=== PATIENT | female | born 1960 | race Caucasian/White ===

== ENCOUNTER 2022-01-21 15:48 | Emergency (ER) | payer OTHER ==
--- OUTSIDE RECORDS SUMMARY | 2022-01-21 16:31 | XMS REPORT | Continuity of Care Document ---
:1960 Author Organization [facility] t Address [address] [place] [address] [address] [place] [address] Care Team Providers Name Role Phone Ant Oliva PA-C Primary Care Physician Blanca Andres LMSW Attending Clinician Unavailable Marielena Ramsay MD Attending Clinician Margaret Cowan RN Attending Clinician Unavailable Manuel Martinez MD Attending Clinician Margaret Guillermo MA Attending Clinician Unavailable Irma Carr RN Attending Clinician Unavailable Provider, Unknown Attending Clinician Unavailable Jossue [facility], Zara Attending Clinician Unavailable Makayla Cuevas RN Attending Clinician Unavailable Stephani Marinelli RN Attending Clinician [facility]available [facility], Cecil Attending Clinician Unavailable Cecilio Godoy RN Attending Clinician Unavailable Ventura Navarrete MD Attending Clinician Frances Kong MD Attending Clinician MD VENTURA NAVARRETE Attending Clinician Unavailable Omega COOL, Shea Clifton Attending Clinician Artem Urrutia RN Attending Clinician Unavailable Donta Almendarez MD Attending Clinician Colleen Mcelroy RN Attending Clinician Unavailable Manuel Cisneros MD Attending Clinician [phone] Estella Sousa Attending Clinician Unavailable Evgeny Vásquez RN Attending Clinician Unavailable Yanni Godfrey LCSW Attending Clinician Unavailable Sri RPDeanna Attending Clinician Unavailable Ezra Banks RP, Ember Attending Clinician Unavailable Ivonne Saleh MA Attending Clinician Unavailable Conner RN, Petty Richards Attending Clinician Unavailable Adalid COOL, Donta Cassidy.H. Attending Clinician Hugh Damon MD Attending Clinician Lata Chowdary Attending Clinician Unavailable MD DONTA CORDOBA Attending Clinician Unavailable Yelitza Sims MA Attending Clinician Unavailable FRANCES KONG Admitting Clinician Unavailable MD VENTURA NAVARRETE Admitting Clinician Unavailable DONTA CORDOAB Admitting Clinician Unavailable MD DONTA CORDOBA Admitting Clinician Unavailable Payers Payer Name Policy Type Policy Number Effective Date Expiration Date S ource Problems Condition Condition Condition Status Onset Resolution Last Treating Co mments Source Name Details Category Date Date Treatment Clinician Date Thrombocyt Thrombocyt Disease Active 2020-05 M [facility] open[facility] 00:00: Hospita 00 l COPD COPD Disease Active 2020-05 [facility] exacerbati exacerbati 1-16 st on on 00:00: Hospita 00 l H/O H/O Disease Active 2020-05 Method[facility] malignant malignant 1-15 st neoplasm neoplasm 00:00: Hospit a of lung of lung 00 l 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 Family History Family Member Diagnosis Comments Start Date Stop Date Source Natural father History of cancer [facility] Natural father Lung cancer [facility] Natural mother COPD [facility] Natural mother Diabetes [facility] Natural mother Lung cancer [facility] Social History Social Habit Start Date Stop Date Quantity Comments Source Cigarettes smoked 2022-01-16 2022-01-16 Methodi current (pack per 00:00:00 00:00:00 Hospita l day) - Reported Cigarette 2022-01-16 2022-01-16 Islam pack-years 00:00:00 00:00:00 Hospital Tobacco use and 2022-01-16 2022-01-16 Smokeless tobacco [facility] exposure 00:00:00 00:00:00 non-user Hospital Alcohol intake 2022-01-16 2022-01-16 Ex-drinker Islam 00:00:00 00:00:00 (finding) Hospital History of tobacco 2014-07-08 Current smoker [facility] use 00:00:00 Hospital Sex Ass[birth year] At [birth year] F Islam 00:00:00 00:00:00 Hospital Smoking Status Start Date Stop Date Source Ex-smoker 2022-01-16 00:00:00 2022-01-16 00:00:00 [facility] Medications Ordered Filled Start Stop Current Ordering Indication Dosage Frequency Signature Comments Components Source Medication Medication Date Date Medication? Clinician (SIG) Name Name benztropine Yes 1mg Q.5D Take 1 mg M ethodi (COGENTIN) 01-[address] 1 MG tablet 14:48: (two) Hospi ta 39 times a l day. Patient is unsure whether she is taking this medication (verbally stated). QUEtiapine Yes 300mg Q.5D Take 300 Me thodi (SEROquel) 9-[address] 300 MG 14:48: mouth 2 Hospita tablet 39 (two) l times a day. 600mg nightly, 300mg daily risperiDONE Yes 3mg Q.5D Take 3 mg M ethodi (RisperDAL) 01-[address] 3 MG tablet 14:48: (two) Hospi ta 39 times a l day. multivitami 2022-0 Yes 1{tbl} QD Take 1 Me thodi n tablet 9-[address] 14:48: mouth Hospita 39 daily. l BIOTIN ORAL Yes 1{tbl} QD Take 1 Me thodi 9-[address] 14:48: mouth Hospita 39 daily. l fluticasone Yes INHALE ONE Methodi furoate-radha 3-15 (1) PUFF st anteroL 00:00: BY MOUTH Hospit a (Breo 00 DAILY. l Ellipta) 100-25 mcg/dose blister with device powder for inhalation levothyroxi No 50ug QD Take 1 Met hodi ne 06-0122 tablet (50 st (Synthroid) 00:00: 05:59 mcg total) Hospita 50 mcg 00 :00 by mouth l tablet daily. potassium No [id number] 20meq Me th[facility] chloride 18 -18 st (K-DUR) CR 16:15: 16:51 Hospit a tablet 20 00 :00 l mEq benadryl/li 2020-05 No 5mL Q6H Swish and Methodi docaine/maa 05-[address] [facility] (MAGIC 00:00: 05:59 every 6 Hos julian MOUTHWASH) 00 :00 (six) l 1:1:1 hours for suspension 30 days. suspension fluconazole 2020-05 No 100mg QD Take 1 Me thodi (Diflucan) 16 04-[address] 100 MG 00:00: 05:59 (100 mg Hospita tablet 00 :00 total) by l mouth daily for 14 days. predniSONE 2020-05- No Take 4 Meth matty (DELTASONE) 16 11-[address] 10 mg 00:00: 05:59 (40 mg Hospita tablet pack 00 :00 total) by l mouth daily for 5 days, THEN 2 tablets (20 mg total) daily for 5 days. follow package directions . ondansetron 2020-05 Yes 8mg Q8H Take 1 Meth matty (Zofran) 8 1-11 tablet (8 st MG tablet 00:00: mg total) Hos julian 00 by mouth l every 8 (eight) hours as needed for nausea or vomiting. benadryl/li 2020-05 No 5mL Q6H Swish and Methodi docaine/maa 05-22 11-[address] l[facility] (MAGIC 00:00: 00:00 every 6 Hos julian MOUTHWASH) 00 :00 (six) l 1:1:1 hours for suspension 30 days. suspension nystatin 2020-05 No [id number] Q.25D Take 5 mL Methodi (MYCOSTATIN 05-2118 (500,000 st ) 100,000 00:00: 05:59 Units Hospit a unit/mL 00 :00 total) by l suspension mouth 4 (four) times a day for 7 days. Swish in mouth fluticasone 2020-05 QD Inhale Met hodi -umeclidin- 05-19 11-[address] vilanter 10:12: 00:00 Hospita (TRELEGY 53 :00 l ELLIPTA) 100-62.5-25 mcg blister with device fluticasone 2020-05 INHALE ONE Methodi furoate-radha 05-19 03-15 (1) PUFF st anteroL 00:00: 00:00 BY MOUTH Hospi ta (Breo 00 :00 DAILY. l Ellipta) 100-25 mcg/dose blister with device powder for inhalation benadryl/li 2020-05 No 5mL Q6H Swish and Methodi docaine/maa 05-[address] [facility] (MAGIC 00:00: 00:00 every 6 Hos julian MOUTHWASH) 00 :00 (six) l 1:1:1 hours for suspension 30 days. suspension ondansetron 2020-05 No 8mg Q8H Take 1 Met hodi (Zofran) 8 0-01 11 tablet (8 st MG tablet 00:00: 00:00 mg total) Ho spita 00 :00 by mouth l every 8 (eight) hours as needed for nausea or vomiting. mirtazapine 2019-05 Yes 30mg QD Take 30 mg Methodi (REMERON) 0-[address] 30 MG 00:00: nightly. Hospita tablet 00 l PARoxetine 2019-05 Yes QD Take by Meth matty (PAXIL) 30 0-[address] MG tablet 00:00: daily. Hospit a 00 l Breo 2019-05- No INHALE ONE Method i Ellipta 0-01 03-19 (1) PUFF st 100-25 00:00: 00:00 BY MOUTH Hospit a mcg/dose 00 :00 DAILY. l blister with device powder for inhalation divalproex 2006-05 Yes Take by Meth matty (DEPAKOTE) 1-[address] 500 MG 24 00:00: Hospita hr tablet 00 l Vital Signs Vital Name Observation Time Observation Value Comments Source Systolic blood 2022-01-16 19:44:00 124 mm[Hg] [facility] pressure Diastolic blood 2022-01-16 19:44:00 80 mm[Hg] [facility] pressure Heart rate 2022-01-16 19:44:00 86 /min [facility] Body temperature 2022-01-16 19:44:00 36.83 Shira [facility] Respiratory rate 2022-01-16 19:44:00 20 /min [facility] Body height 2022-01-16 19:44:00 152.4 cm [facility] Body weight 2022-01-16 19:44:00 84.55 kg [facility] BMI 2022-01-16 19:44:00 36.40 kg/m2 [facility] Oxygen saturation in 2022-01-16 19:44:00 97 /min [facility] Arterial blood by Pulse oximetry Procedures Procedure Date / Time Performing Clinician Source Performed PET CT SKULL BASE TO MID 2022-01-08 14:36:07 Manuel Martinez [facility] THIGH HC COMPLETE BLD COUNT 2022-01-08 14:36:00 Manuel Martinez [facility] W/AUTO DIFF COMPREHENSIVE METABOLIC 2022-01-08 14:36:00 Manuel Martinez [facility] PANEL MAGNESIUM LEVEL 2022-01-08 14:36:00 Manuel Martinez Ho spital THYROID STIMULATING 2022-01-08 14:36:00 Manuel Martinez [facility] HORMONE T3, FREE 2022-01-08 14:36:00 Manuel Martinez spital T4, FREE 2022-01-08 14:36:00 Manuel Martinez spital ESTIMATED GFR 2022-01-08 14:36:00 Manuel Martinez Ho spital T3 2022-01-08 14:36:00 Manuel Martinez Ho spital ESTIMATED GFR 2022-01-08 14:20:00 Manuel Martinez Ho spital POC GLUCOSE 2022-01-08 12:53:00 Manuel Martinez Ho spital HC COMPLETE BLD COUNT 2021-12-11 14:36:00 Manuel Martinez [facility] W/AUTO DIFF COMPREHENSIVE METABOLIC 2021-12-11 14:36:00 Manuel Martinez [facility] PANEL MAGNESIUM LEVEL 2021-12-11 14:36:00 Manuel Martinez Ho spital THYROID STIMULATING 2021-12-11 14:36:00 Manuel Martinez [facility] HORMONE T3 2021-12-11 14:36:00 Manuel Martinez Ho spital T4, FREE 2021-12-11 14:36:00 Manuel Martinez Ho spital ESTIMATED GFR 2021-12-11 14:36:00 Manuel Martinez Ho spital CT CHEST W CONTRAST 2021-11-13 18:58:59 Manuel Martinez [facility] CBC WITH PLATELET AND 2021-11-13 16:36:00 Manuel Martinez [facility] DIFFERENTIAL COMPREHENSIVE METABOLIC 2021-11-13 16:36:00 Manuel Martinez [facility] PANEL MAGNESIUM LEVEL 2021-11-13 16:36:00 Manuel Martinez Ho spital THYROID STIMULATING 2021-11-13 16:36:00 Manuel Martinez [facility] HORMONE T3 2021-11-13 16:36:00 Manuel Martinez Ho spital T4, FREE 2021-11-13 16:36:00 Manuel Martinez Ho spital ESTIMATED GFR 2021-11-13 16:36:00 Manuel Martinez Ho spital MANUAL DIFFERENTIAL 2021-11-13 16:36:00 Manuel Martinez [facility] CBC WITH PLATELET AND 2021-10-16 14:26:00 Manuel Martinez [facility] DIFFERENTIAL COMPREHENSIVE METABOLIC 2021-10-16 14:26:00 Manuel Martinez [facility] PANEL MAGNESIUM LEVEL 2021-10-16 14:26:00 Manuel Martinezist Ho spital THYROID STIMULATING 2021-10-16 14:26:00 Martinez, Manuel [facility] HORMONE T3 2021-10-16 14:26:00 Manuel Martinez Ho spital T4, FREE 2021-10-16 14:26:00 Manuel Martinezist Ho spital ESTIMATED GFR 2021-10-16 14:26:00 Manuel Martinezist Ho spital MANUAL DIFFERENTIAL 2021-10-16 14:26:00 [facility] CBC WITH PLATELET AND 2021-09-18 14:10:00 Manuel Martinez [facility] DIFFERENTIAL COMPREHENSIVE METABOLIC 2021-09-18 14:10:00 Manuel Martinez [facility] PANEL MAGNESIUM LEVEL 2021-09-18 14:10:00 Manuel Martinez Ho spital THYROID STIMULATING 2021-09-18 14:10:00 [place] HORMONE T3 2021-09-18 14:10:00 Manuel Martinezist Ho spital T4, FREE 2021-09-18 14:10:00 Manuel Martinez Ho spital ESTIMATED GFR 2021-09-18 14:10:00 Manuel Martinez Ho spital MANUAL DIFFERENTIAL 2021-09-18 14:10:00 Manuel Martinez [facility] HC COMPLETE BLD COUNT 2021-08-21 14:01:00 Manuel Martinez [facility] W/AUTO DIFF COMPREHENSIVE METABOLIC 2021-08-21 14:01:00 Manuel Martinez [facility] PANEL MAGNESIUM LEVEL 2021-08-21 14:01:00 Manuel Martinez Ho spital THYROID STIMULATING 2021-08-21 14:01:00 Manuel Martinez [facility] HORMONE T3 2021-08-21 14:01:00 Manuel Martinezist Ho spital T4, FREE 2021-08-21 14:01:00 Manuel Martinez Ho spital ESTIMATED GFR 2021-08-21 14:01:00 Manuel Martinez Ho spital MRI BRAIN W WO CONTRAST 2021-08-17 17:05:13 Manuel Martinez [facility] PET CT SKULL BASE TO MID 2021-08-17 16:18:00 Manuel Martinez [facility] THIGH POC GLUCOSE 2021-08-17 14:39:00 Manuel Martinez [facility] spital HC COMPLETE BLD COUNT 2021-07-24 15:06:00 Manuel Martinez [facility] W/AUTO DIFF COMPREHENSIVE METABOLIC 2021-07-24 15:06:00 Manuel Martinez [facility] PANEL MAGNESIUM LEVEL 2021-07-24 15:06:00 Manuel Martinez Ho spital THYROID STIMULATING 2021-07-24 15:06:00 Manuel Martinez [facility] HORMONE T3 2021-07-24 15:06:00 Manuel Martinez Ho spital T4, FREE 2021-07-24 15:06:00 Manuel Martinez Ho spital ESTIMATED GFR 2021-07-24 15:06:00 Manuel Martinez [facility] sp[facility] HC COMPLETE BLD COUNT 2021-06-26 15:57:00 Manuel Martinez [facility] W/AUTO DIFF COMPREHENSIVE METABOLIC 2021-06-26 15:57:00 Manuel Martinez [facility] PANEL MAGNESIUM LEVEL 2021-06-26 15:57:00 Manuel Martinez Ho spital THYROID STIMULATING 2021-06-26 15:57:00 Manuel Martinez [facility] HORMONE T3 2021-06-26 15:57:00 Manuel Martinez Ho spital T4, FREE 2021-06-26 15:57:00 Manuel Martinez Ho spital ESTIMATED GFR 2021-06-26 15:57:00 Manuel Martinez [facility] spital CBC WITH PLATELET AND 2021-05-29 13:57:00 Manuel Martinez [facility] DIFFERENTIAL COMPREHENSIVE METABOLIC 2021-05-29 13:57:00 Manuel Martinez [facility] PANEL MAGNESIUM LEVEL 2021-05-29 13:57:00 Manuel Martinez Ho spital THYROID STIMULATING 2021-05-29 13:57:00 Manuel Martinez [facility] HORMONE T3 2021-05-29 13:57:00 Manuel Martinez [facility] spital T4, FREE 2021-05-29 13:57:00 Manuel Martinez [facility] spital ESTIMATED GFR 2021-05-29 13:57:00 Manuel Martinez [facility] spital MANUAL DIFFERENTIAL 2021-05-29 13:57:00 Manuel Martinez [facility] CT CHEST W CONTRAST 2021-05-22 17:14:16 Manuel Martinez [facility] RAD ONC COURSE SUMMARY 2021-04-27 19:56:56 Provider, Unknown [facility] HC COMPLETE BLD COUNT 2021-04-24 14:32:00 Manuel Martinez [facility] W/AUTO DIFF COMPREHENSIVE METABOLIC 2021-04-24 14:32:00 [facility] PANEL MAGNESIUM LEVEL 2021-04-24 14:32:00 Manuel Martinezist Ho spital ESTIMATED GFR 2021-04-24 14:32:00 Manuel Martinez [facility] spital RAD ONC DAILY TREATMENT 2021-04-24 13:24:35 Provider, Unknown [facility] RAD ONC DAILY TREATMENT 2021-04-23 16:45:25 Provider, Unknown [facility] RAD ONC DAILY TREATMENT 2021-04-20 16:45:46 Provider, Unknown [facility] RAD ONC DAILY TREATMENT 2021-04-19 17:14:34 Provider, Unknown [facility] RAD ONC DAILY TREATMENT 2021-04-18 17:29:35 Provider, Unknown [facility] HC COMPLETE BLD COUNT 2021-04-17 14:02:00 Manuel Martinez [facility]/AUTO DIFF COMPREHENSIVE METABOLIC 2021-04-17 14:02:00 Manuel Martinez [facility] PANEL ESTIMATED GFR 2021-04-17 14:02:00 [facility] 2021-04-17 14:02:00 Manuel Martinezist Ho spital RAD ONC DAILY TREATMENT 2021-04-17 13:11:43 Provider, Unknown [facility] RAD ONC DAILY TREATMENT 2021-04-16 16:51:36 Provider, Unknown [facility] RAD ONC DAILY TREATMENT 2021-04-13 17:37:41 Provider, Unknown [facility] RAD ONC DAILY TREATMENT 2021-04-12 17:27:38 Provider, Unknown [facility] RAD ONC DAILY TREATMENT 2021-04-11 17:41:13 Provider, Unknown [facility] HC COMPLETE BLD COUNT 2021-04-10 17:09:00 Manuel Martinez [facility] W/AUTO DIFF COMPREHENSIVE METABOLIC 2021-04-10 17:09:00 Manuel Martinez [facility] PANEL MAGNESIUM LEVEL 2021-04-10 17:09:00 Manuel Martinez Ho spital ESTIMATED GFR 2021-04-10 17:09:00 Manuel Martinezist Ho spital RAD ONC DAILY TREATMENT 2021-04-10 16:18:41 Provider, Unknown [facility] RAD ONC DAILY TREATMENT 2021-04-09 17:12:42 Provider, Unknown [facility] RAD ONC DAILY TREATMENT 2021-04-04 16:46:28 Provider, Unknown [facility] RAD ONC DAILY TREATMENT 2021-04-03 16:52:47 Provider, Unknown [facility] CBC WITH PLATELET AND 2021-04-02 14:42:00 Manuel Martinez [facility] DIFFERENTIAL COMPREHENSIVE METABOLIC 2021-04-02 14:42:00 Manuel Martinez [facility] PANEL MAGNESIUM LEVEL 2021-04-02 14:42:00 [facility] 2021-04-02 14:42:00 [facility] MANUAL DIFFERENTIAL 2021-04-02 14:42:00 Manuel Martinez [facility] RAD ONC DAILY TREATMENT 2021-04-02 13:51:59 Provider, Unknown [facility] RAD ONC DAILY TREATMENT 2021-03-30 16:51:51 Provider, Unknown [facility] RAD ONC DAILY TREATMENT 2021-03-29 17:12:14 Provider, Unknown [facility] RAD ONC DAILY TREATMENT 2021-03-28 16:14:16 Provider, Unknown [facility] RAD ONC DAILY TREATMENT 2021-03-27 21:51:17 Provider, Unknown [facility] COVID-19 ANTI-SPIKE IGG 2021-03-27 10:00:[facility]-19 SEROLOGY PATIENT 2021-03-27 10:00:00 Navarrete, [facility] SURVEILLANCE HC COMPLETE BLD COUNT 2021-03-27 09:31:00 [facility] DIFF BASIC METABOLIC PANEL 2021-03-27 09:31:00 [facility] MAGNESIUM LEVEL 2021-03-27 09:31:00 Lexi [facility] ospital PHOSPHORUS LEVEL 2021-03-27 09:31:00 [facility] 2021-03-27 09:31[facility]00 [facility] ACID LEV[facility] 2021-03-27 09:31:00 Lexi [facility] ospital LDH 2021-03-27 09:31:00 Lexi [facility] ospital ESTIMATED GFR 2021-03-27 09:31:00 Lexi [facility] ospital CT CHEST WO CONTRAST 2021-03-27 03:19:25 Navarrete, [facility] COVID-19 QUALITATIVE 2021-03-27 02:00:00 Manuel Martinez [facility] RT-PCR ECG 12-LEAD 2021-03-27 01:39:50 Lexi [facility] ospital CBC WITH PLATELET AND 2021-03-26 16:01:00 Manuel Martinez [facility] DIFFERENTIAL COMPREHENSIVE METABOLIC 2021-03-26 16:01:00 Manuel Martinez [facility] PANEL MAGNESIUM LEVEL 2021-03-26 16:01:00 Manuel Martinez Ho spital ESTIMATED GFR 2021-03-26 16:01:00 Manuel Martinez spital MANUAL DIFFERENTIAL 2021-03-26 16:01:00 Manuel Martinez [facility] RAD ONC DAILY TREATMENT 2021-03-26 14:12:43 Provider, Unknown [facility] HC COMPLETE BLD COUNT 2021-03-19 14:23:00 Manuel Martinez [facility] W/AUTO DIFF COMPREHENSIVE METABOLIC 2021-03-19 14:23:00 Manuel Martinez [facility] PANEL MAGNESIUM LEVEL 2021-03-19 14:23:00 Manuel Martinezist Ho spital ESTIMATED GFR 2021-03-19 14:23:00 Manuel Martniez Ho spital HC COMPLETE BLD COUNT 2021-03-12 16:45:00 Manuel Martinez [facility] W/AUTO DIFF COMPREHENSIVE METABOLIC 2021-03-12 16:45[facility]ESI[facility] LEVEL 2021-03-12 16:45:00 Manuel Martinez Ho spital ESTIMATED GFR 2021-03-12 16:45:00 Manuel Martinezist Ho spital HC COMPLETE BLD COUNT 2021-03-05 13:00:00 Manuel Martinez [facility] W/AUTO DIFF COMPREHENSIVE METABOLIC 2021-03-05 13:00:00 Manuel Martinez [facility] PANEL MAGNESIUM LEVEL 2021-03-05 13:00:00 [facility] GFR 2021-03-05 13:00:00 [facility] BRAIN W WO CONTRAST 2021-02-22 13:35:00 Manuel Martinez [facility] CT CHEST W CONTRAST 2021-02-07 16:11:00 Manuel Martinez [facility] ABDOMEN W CONTRAST PELVIS W CONTRAST XR CHEST 1 VW PORTABLE 2021-01-29 20:03:00 Marta Salas [facility] CYTOLOGY 2021-01-29 19:18:00 Donta Cordoba [facility] (NON-GYNECOLOGICAL) REQUEST CYTOLOGY 2021-01-29 19:01:00 Donta Cordoba [facility] (NON-GYNECOLOGICAL) REQUEST ND AN ELECTIVE 2021-01-29 18:34:31 Hugh Damon [facility] ospital ENDOTRACHEAL AIRWAY BRONCHOSCOPY 2021-01-29 18:05:00 Donta Cordoba [facility] [place], ENDOBRONCHIAL 2021-01-29 18:05:00 Donta Cordoba [facility] ABO AND RH CONFIRMATION 2021-01-29 15:18:00 Donta Cordoba [facility] BY PROTOCOL COVID-19 QUALITATIVE 2021-01-25 16:57:00 Donta Cordoba [facility] RT-PCR TYPE AND SCREEN 2021-01-25 16:57:00 Donta Cordoba [facility] PROTHROMBIN TIME WITH INR 2021-01-25 16:57:00 Donta Cordoba [facility] PARTIAL THROMBOPLASTIN 2021-01-25 16:57:00 Donta Cordoba [facility] TIME (PTT) COMPREHENSIVE METABOLIC 2021-01-25 16:57:00 Donta Cordoba [facility] PANEL HC COMPLETE BLD COUNT 2021-01-25 16:57:00 Donta Cordoba [facility] W/AUTO DIFF ESTIMATED GFR 2021-01-25 16:57:00 Donta Cordoba [facility] ECG 12-LEAD 2021-01-25 16:45:56 Donta CordobaMichael [facility] Plan of Care Planned Activity Planned Date Details Comments Source Future Scheduled 2022-01-21 HEPATITIS B VACCINES [facility] Test 11:09:47 (1 of 3 - 3-dose series) [code = HEPATITIS B VACCINES (1 of 3 - 3-dose series)] Future Scheduled 2022-01-21 Pneumococcal Vaccine: [facility] Test 11:09:47 Pediatrics (0 to 5 Years) and At-Risk Patients (6 to 64 Years) (1 - PCV) [code = Pneumococcal Vaccine: Pediatrics (0 to 5 Years) and At-Risk Patients (6 to 64 Years) (1 - PCV)] Future Scheduled 2022-01-21 SHINGLES VACCINES (1 [facility] Test 11:09:47 of 2) [code = SHINGLES VACCINES (1 of 2)] Future Scheduled 2022-01-21 Screening for [facility] Test 11:09:47 malignant neoplasm of cervix (procedure) [code = [id number]] Future Scheduled 2022-01-21 BREAST CANCER [facility] Test 11:09:47 SCREENING [code = BREAST CANCER SCREENING] Future Scheduled 2022-01-21 COLONOSCOPY SCREENING [facility] Test 11:09:47 [code = COLONOSCOPY SCREENING] Future Scheduled 2022-01-21 COVID-19 VACCINE (3 - [facility] Test 11:09:47 Pfizer risk series) [code = COVID-19 VACCINE (3 - Pfizer risk series)] Future Scheduled 2022-01-21 INFLUENZA VACCINE Method [facility] Test 11:09:47 [code = INFLUENZA VACCINE] Encounters Start End Encounter Admission Attending Care Care Encounter Source Date/Time Date/Time Type Type Clinicians Facility Department ID 2022-01-21 2022-01-21 Social Mckenna, 1.2.840.1 [id number] Methodi 00:00:00 00:00:00 Work Blanca 53970.1.[address] 3.430.2.7 Hospit a .3.705734 l .8 2022-01-17 2022-01-17 Social Mckenna, 1.2.840.1 [id number] 68475 48059 Methodi 00:00:00 00:00:00 Work Blanca 40662.1.[address] 3.430.2.7 Hospit a .3.076255 l .8 2022-01-16 2022-01-16 [facility], 1.2.840.1 [id number] 43381 Methodi 16:15:00 16:15:00 Encounter Marielena Tirado 87880.1.[address] 3.430.2.7 Hospit a .3.585623 l .8 2022-01-16 2022-01-16 [facility] Marielena RamMichael 1.2.840.1 [id number] Methodi 14:32:32 14:32:32 Encounter Margaret Cowan 46246.1.[address] 3.430.2.7 Hospit a .3.649339 l .8 2022-01-08 2022-01-16 Office Manuel Martinez 1.2.840.1 [id number] 703 [id number] Methodi 10:20:00 00:36:[address] 3.430.2.7 Hospit a .3.395288 l .8 2022-01-16 2022-01-16 Outpatient [facility] [id number] 380 [place] 00:00:00 00:00:00 MARIELENA [address] 2022-01-16 2022-01-16 Outpatient [facility] [id number] [place] 00:00:00 00:00:00 MARIELENA [address] 2022-01-16 2022-01-16 Travel 1.2.840.1 1.2.198.846 4062 088383 Methodi 00:00:00 00:00:[address] 3.430.2.7 0.2.7.3.698 spita .3.793914 084.8 l .8 2022-01-15 2022-01-15 [facility] 1.2.840.1 [id number] 2100 [id number] Methodi 00:00:00 00:00:[address] 3.430.2.7 Hospit a .3.564554 l .8 2022-01-10 2022-01-10 [facility] 1.2.840.1 [id number] 07122 04004 Methodi 07:00:00 07:00:00 Encounter Marielena iTrado 75568.1.[address] 3.430.2.7 Hospit a .3.271451 l .8 2022-01-10 2022-01-10 Outpatient [facility] [id number] 380 [place] 00:00:00 00:00:00 MARIELENA [address] 2022-01-08 2022-01-08 [facility] Manuel Martinez 1.2.840.1 [id number] 21 [id number] Methodi 07:18:36 23:59:[address] 3.430.2.7 Hospit a .3.688299 l .8 2022-01-08 2022-01-08 Infusion Manuel Martinez 1.2.840.1 [id number] Methodi 09:15:00 12:15:[address] 3.430.2.7 Hospit a .3.382733 l .8 2022-01-08 2022-01-08 Orders Manuel Martinez 1.2.840.1 [id number] 763 [id number] Methodi 00:00:00 00:00:[address] 3.430.2.7 Hospit a .3.815226 l .8 2022-01-08 2022-01-08 Travel 1.2.840.1 1.2.950.202 2678 038703 Methodi 00:00:00 00:00:[address] 3.430.2.7 0.2.7.3.698 Ho spita .3.239546 084.8 l .8 2022-01-08 2022-01-08 Outpatient MANUEL MARTINEZ [facility] 2100 [id number] [place] 00:00:00 00:00:[address] 2022-01-08 2022-01-08 Outpatient MANUEL MARTINEZ [facility] 2100 [id number] [place] 00:00:00 00:00:[address] 2022-01-08 2022-01-08 Outpatient MANUEL MARTINEZ [facility] 2100 [id number] [place] 00:00:00 00:00:[address] 2022-01-04 2022-01-04 Travel 1.2.840.1 1.2.873.384 9062 554595 Methodi 00:00:00 00:00:[address] 3.430.2.7 0.2.7.3.698 Ho spita .3.854195 084.8 l .8 2021-12-21 2021-12-21 Orders [facility], 1.2.840.1 [id number] 873 [id number] Methodi 00:00:00 00:00:00 Only Margaret 35230.1.[address] 3.430.2.7 Hospit a .3.374817 l .8 2021-12-11 2021-12-20 Office Manuel Martinez 1.2.840.1 [id number] 482 [id number] Methodi 10:20:00 00:30:[address] 3.430.2.7 Hospit a .3.534084 l .8 2021-12-11 2021-12-11 Infusion Manuel Martinez 1.2.840.1 [id number] 21 [id number] Methodi 09:15:00 12:15:[address] 3.430.2.7 Hospit a .3.808382 l .8 2021-12-11 2021-12-11 Travel 1.2.840.1 1.2.038.839 3536 472949 Methodi 00:00:00 00:00:[address] 3.430.2.7 0.2.7.3.698 Ho spita .3.022859 084.8 l .8 2021-12-11 2021-12-11 Outpatient MANUEL MARTINEZ [facility] 2100 [id number] [place] 00:00:00 00:00:[address] 2021-12-11 2021-12-11 Outpatient MANUEL MARTINEZ [facility] 2100 [id number] [place] 00:00:00 00:00:[address] 2021-12-07 2021-12-07 Orders Manuel Martinez 1.2.840.1 [id number] 850 [id number] Methodi 00:00:00 00:00:[address] 3.430.2.7 Hospit a .3.936800 l .8 2021-12-07 2021-12-07 Travel 1.2.840.1 1.2.259.437 1657 769855 Methodi 00:00:00 00:00:[address] 3.430.2.7 0.2.7.3.698 Ho spita .3.403406 084.8 l .8 2021-11-13 2021-11-22 Office Manuel Martinez 1.2.840.1 [id number] 938 [id number] Methodi 12:00:00 00:28:[address] 3.430.2.7 Hospit a .3.328229 l .8 2021-11-13 2021-11-13 Hospital Manuel Martinez 1.2.840.1 [id number] 21 [id number] Methodi 08:00:00 23:59:[address] 3.430.2.7 Hospit a .3.635927 l .8 2021-11-13 2021-11-13 Infusion Manuel Martinez 1.2.840.1 [id number] 21 [id number] Methodi 11:15:00 14:15:[address] 3.430.2.7 Hospit a .3.156975 l .8 2021-11-13 2021-11-13 Outpatient MANUEL MARTINEZ [facility] 2100 [id number] [place] 00:00:00 00:00:[address] 2021-11-13 2021-11-13 Outpatient MANUEL MARTINEZ [facility] 2100 [id number] [place] 00:00:00 00:00:[address] 2021-11-13 2021-11-13 Outpatient MANUEL MARTINEZ [facility] 2100 [id number] [place] 00:00:00 00:00:[address] 2021-11-13 2021-11-13 Orders Manuel Martinez 1.2.840.1 [id number] 163 [id number] Methodi 00:00:00 00:00:[address] 3.430.2.7 Hospit a .3.790340 l .8 2021-11-13 2021-11-13 Travel 1.2.840.1 1.2.470.415 9365 855700 Methodi 00:00:00 00:00:[address] 3.430.2.7 0.2.7.3.698 Ho spita .3.390477 084.8 l .8 2021-11-08 2021-11-08 Travel 1.2.840.1 1.2.911.935 1336 025949 Methodi 00:00:00 00:00:[address] 3.430.2.7 0.2.7.3.698 Ho spita .3.018479 084.8 l .8 2021-11-07 2021-11-07 Travel 1.2.840.1 1.2.134.987 2916 649188 Methodi 00:00:00 00:00:[address] 3.430.2.7 0.2.7.3.698 Ho spita .3.895626 084.8 l .8 2021-11-05 2021-11-05 Eloise Guillermo 1.2.840.1 [id number] 434 [id number] Methodi 00:00:00 00:00:00 Only Margaret 86150.1.[address] 3.430.2.7 Hospit a .3.266630 l .8 2021-10-16 2021-10-26 Office Manuel Martinez 1.2.840.1 [id number] 333 [id number] Methodi 10:20:00 00:28:[address] 3.430.2.7 Hospit a .3.301483 l .8 2021-10-16 2021-10-16 Infusion Manuel Martinez 1.2.840.1 [id number] Methodi 09:15:00 12:15:[address] 3.430.2.7 Hospit a .3.794616 l .8 2021-10-16 2021-10-16 Outpatient MANUEL MARTINEZ [facility] 2100 [id number] [place] 00:00:00 00:00:[address] 2021-10-16 2021-10-16 Outpatient MANUEL MARTINEZ [facility] 2100 [id number] [place] 00:00:00 00:00:[address] 2021-10-16 2021-10-16 Travel 1.2.840.1 1.2.404.227 9002 346902 Methodi 00:00:00 00:00:[address] 3.430.2.7 0.2.7.3.698 Ho spita .3.507473 084.8 l .8 2021-10-15 2021-10-15 Travel 1.2.840.1 1.2.562.050 8034 573165 Methodi 00:00:00 00:00:[address] 3.430.2.7 0.2.7.3.698 Ho spita .3.045837 084.8 l .8 2021-09-18 2021-09-18 Infusion Manuel Martinez 1.2.840.1 [id number] Methodi 09:15:00 12:15:[address] 3.430.2.7 Hospit a .3.735010 l .8 2021-09-18 2021-09-18 Office Manuel Martinez 1.2.840.1 [id number] 589 [id number] Methodi 10:20:00 10:40:[address] 3.430.2.7 Hospit a .3.348965 l .8 2021-09-18 2021-09-18 Outpatient MANUEL MARTINEZ [facility] 2100 [id number] [place] 00:00:00 00:00:[address] 2021-09-18 2021-09-18 Outpatient MANUEL MARTINEZ [facility] 2100 [id number] [place] 00:00:00 00:00:[address] 2021-09-18 2021-09-18 Travel 1.2.840.1 1.2.223.745 1751 732395 Methodi 00:00:00 00:00:[address] 3.430.2.7 0.2.7.3.698 Ho spita .3.951847 084.8 l .8 2021-09-18 2021-09-18 Orders Manuel Martinez 1.2.840.1 [id number] 228 [id number] Methodi 00:00:00 00:00:[address] 3.430.2.7 Hospit a .3.942425 l .8 2021-09-14 2021-09-14 Travel 1.2.840.1 1.2.878.638 2561 740131 Methodi 00:00:00 00:00:[address] 3.430.2.7 0.2.7.3.698 Ho spita .3.267845 084.8 l .8 2021-08-21 2021-08-30 Office Manuel Martinez 1.2.840.1 [id number] 054 [id number] Methodi 10:20:00 01:31:[address] 3.430.2.7 Hospit a .3.444284 l .8 2021-08-21 2021-08-21 Infusion Manuel Martinez 1.2.840.1 [id number] 21 [id number] Methodi 09:15:00 12:15:[address] 3.430.2.7 Hospit a .3.978507 l .8 2021-08-21 2021-08-21 Outpatient LUBNA MANUEL [facility] 2100 [id number] [place] 00:00:00 00:00:[address] 2021-08-21 2021-08-21 Outpatient MARTINEZ MANUEL [facility] 2100 [id number] [place] 00:00:00 00:00:[address] 2021-08-21 2021-08-21 Travel 1.2.840.1 1.2.134.704 4642 480588 Methodi 00:00:00 00:00:[address] 3.430.2.7 0.2.7.3.698 Ho spita .3.171782 084.8 l .8 2021-08-20 2021-08-20 [facility] Manuel Martinez 1.2.840.1 [id number] 666 [id number] Methodi 00:00:00 00:00:[address] 3.430.2.7 Hospit a .3.162597 l .8 2021-08-17 2021-08-17 [facility] Manuel Martinez 1.2.840.1 [id number] 21 [id number] Methodi 11:09:03 23:59:[address] 3.430.2.7 Hospit a .3.927126 l .8 2021-08-17 2021-08-17 [facility] Manuel Martinez 1.2.840.1 [id number] 21 [id number] Methodi 09:33:37 11:08:[address] 3.430.2.7 Hospit a .3.835731 l .8 2021-08-17 2021-08-17 Outpatient MANUEL MARTINEZ [facility] 2100 [id number] [place] 00:00:00 00:00:[address] 2021-08-17 2021-08-17 Outpatient MANUEL MARTINEZ [facility] 2100 [id number] [place] 00:00:00 00:00:[address] 2021-08-17 2021-08-17 Travel 1.2.840.1 1.2.724.579 5451 038540 Methodi 00:00:00 00:00:[address] 3.430.2.7 0.2.7.3.698 Ho spita .3.688057 084.8 l .8 2021-07-24 2021-08-16 Office Manuel Martinez 1.2.840.1 [id number] 941 [id number] Methodi 10:20:00 01:12:[address] 3.430.2.7 Hospit a .3.465739 l .8 2021-08-10 2021-08-10 Travel 1.2.840.1 1.2.105.283 5972 253816 Methodi 00:00:00 00:00:[address] 3.430.2.7 0.2.7.3.698 Ho spita .3.783931 084.8 l .8 2021-08-07 2021-08-07 Travel 1.2.840.1 1.2.567.300 8981 375423 Methodi 00:00:00 00:00:[address] 3.430.2.7 0.2.7.3.698 Ho spita .3.482181 084.8 l .8 2021 2021 Travel 1.2.840.1 1.2.091.559 0005 355868 Methodi 00:00:00 00:00:[address] 3.430.2.7 0.2.7.3.698 Ho spita .3.043486 084.8 l .8 2021-08-02 2021-08-02 Eloise Guillermo, 1.2.840.1 [id number] 763 [id number] Methodi 00:00:00 00:00:00 Only Margaret 80488.1.[address] 3.430.2.7 Hospit a .3.993097 l .8 2021-07-24 2021-07-24 Infusion Manuel Martinez 1.2.840.1 [id number] 21 [id number] Methodi 09:15:00 12:15:[address] 3.430.2.7 Hospit a .3.100324 l .8 2021-07-24 2021-07-24 Outpatient MANUEL MARTINEZ [facility] 2100 [id number] [place] 00:00:00 00:00:[address] 2021-07-24 2021-07-24 Outpatient MANUEL MARTINEZ [facility] 2100 [id number] [place] 00:00:00 00:00:[address] 2021-07-24 2021-07-24 Travel 1.2.840.1 1.2.670.811 4603 546122 Methodi 00:00:00 00:00:[address] 3.430.2.7 0.2.7.3.698 Ho spita .3.803240 084.8 l .8 2021-07-23 2021-07-23 Orders Manuel Martinez 1.2.840.1 [id number] 992 [id number] Methodi 00:00:00 00:00:[address] 3.430.2.7 Hospit a .3.466649 l .8 2021-07-23 2021-07-23 Travel 1.2.840.1 1.2.376.331 7603 811645 Methodi 00:00:00 00:00:[address] 3.430.2.7 0.2.7.3.698 Ho spita .3.836144 084.8 l .8 2021-06-26 2021-06-26 Infusion Manuel Martinez 1.2.840.1 [id number] 21 [id number] Methodi 09:15:00 12:15:[address] 3.430.2.7 Hospit a .3.143922 l .8 2021-06-26 2021-06-26 Office Manuel Martinez 1.2.840.1 [id number] 353 [id number] Methodi 10:20:00 10:40:[address] 3.430.2.7 Hospit a .3.375093 l .8 2021-06-26 2021-06-26 Outpatient MANUEL MARTINEZ [facility] 2100 [id number] [place] 00:00:00 00:00:[address] 2021-06-26 2021-06-26 Outpatient MANUEL MARTINEZ [facility] 2100 [id number] [place] 00:00:00 00:00:[address] 2021-06-26 2021-06-26 Travel 1.2.840.1 1.2.894.939 4837 300179 Methodi 00:00:00 00:00:[address] 3.430.2.7 0.2.7.3.698 Ho spita .3.803287 084.8 l .8 2021-06-24 2021-06-24 Manuel Ochoa 1.2.840.1 [id number] 307 [id number] Methodi 00:00:00 00:00:[address] 3.430.2.7 Hospit a .3.806514 l .8 2021-06-21 2021-06-21 Travel 1.2.840.1 1.2.095.884 4942 132670 Methodi 00:00:00 00:00:[address] 3.430.2.7 0.2.7.3.698 Ho spita .3.561338 084.8 l .8 2021-06-01 2021-06-01 Telephone Carr, 1.2.840.1 [id number] 21 [id number] Methodi 00:00:00 00:00:[address] 3.430.2.7 Hospit a .3.776173 l .8 2021-06-01 2021-06-01 Manuel Ochoa 1.2.840.1 [id number] 242 [id number] Methodi 00:00:00 00:00:[address] 3.430.2.7 Hospit a .3.177286 l .8 2021-05-29 2021-05-29 Infusion Manuel Martinez 1.2.840.1 [id number] 21 [id number] Methodi 07:45:00 10:45:[address] 3.430.2.7 Hospit a .3.333656 l .8 2021-05-29 2021-05-29 Office Manuel Martinez 1.2.840.1 [id number] 951 [id number] Methodi 09:00:00 09:20:[address] 3.430.2.7 Hospit a .3.395377 l .8 2021-05-29 2021-05-29 Outpatient MANUEL MARTINEZ [facility] 2100 [id number] [place] 00:00:00 00:00:[address] 2021-05-29 2021-05-29 Outpatient MANUEL MARTINEZ [facility] 2100 [id number] [place] 00:00:00 00:00:[address] 2021-05-29 2021-05-29 Travel 1.2.840.1 1.2.530.755 0861 004048 Methodi 00:00:00 00:00:[address] 3.430.2.7 0.2.7.3.698 Ho spita .3.492510 084.8 l .8 2021-05-23 2021-05-23 Telephone Manuel Martinez 1.2.840.1 [id number] 2 [id number] Methodi 10:20:00 10:40:[address] 3.430.2.7 Hospit a .3.030935 l .8 2021-05-23 2021-05-23 Outpatient MANUEL MARTINEZ [facility] 2100 [id number] [place] 00:00:00 00:00:[address] 2021-05-23 2021-05-23 Telephone Manuel Martinez 1.2.840.1 [id number] 2 [id number] Methodi 00:00:00 00:00:[address] 3.430.2.7 Hospit a .3.956057 l .8 2021-05-22 2021-05-22 [facility] Manuel Martinez 1.2.840.1 [id number] Methodi 09:30:00 23:59:[address] 3.430.2.7 Hospit a .3.369192 l .8 2021-05-22 2021-05-22 Outpatient MANUEL MARTINEZ [facility] 2100 [id number] [place] 00:00:00 00:00:[address] 2021-05-22 2021-05-22 Travel 1.2.840.1 1.2.845.466 3657 346949 Methodi 00:00:00 00:00:[address] 3.430.2.7 0.2.7.3.698 Ho spita .3.646190 084.8 l .8 2021-04-17 2021-04-28 [facility] Manuel Martinez 1.2.840.1 [id number] 493 [id number] Methodi 09:20:00 01:17:[address] 3.430.2.7 Hospit a .3.420677 l .8 2021-04-27 2021-04-27 Orders Provider, 1.2.840.1 [id number] Methodi 00:00:00 00:00:00 Only Unknown 65393.1.[address] 3.430.2.7 Hospit a .3.072790 l .8 2021-04-26 2021-04-26 Travel 1.2.840.1 1.2.119.298 4379 240260 Methodi 00:00:00 00:00:[address] 3.430.2.7 0.2.7.3.698 Ho spita .3.081357 084.8 l .8 2021-04-26 2021-04-26 Orders [facility], 1.2.840.1 [id number] 695 [id number] Methodi 00:00:00 00:00:00 Only Margaret 43522.1.[address] 3.430.2.7 Hospit a .3.620608 l .8 2021-04-26 2021-04-26 Orders [facility], 1.2.840.1 [id number] 982 [id number] Methodi 00:00:00 00:00:00 Only Margaret 56700.1.[address] 3.430.2.7 Hospit a .3.352637 l .8 2021-04-25 2021-04-25 Travel 1.2.840.1 1.2.345.191 8544 438559 Methodi 00:00:00 00:00:[address] 3.430.2.7 0.2.7.3.698 Ho spita .3.772651 084.8 l .8 2021-04-24 2021-04-24 Infusion Manuel Martinez 1.2.840.1 [id number] 21 [id number] Methodi 07:45:00 12:15:[address] 3.430.2.7 Hospit a .3.444702 l .8 2021-04-24 2021-04-24 Office Manuel Martinez 1.2.840.1 [id number] 985 [id number] Methodi 09:20:00 09:40:[address] 3.430.2.7 Hospit a .3.413169 l .8 2021-04-24 2021-04-24 [facility] 1.2.840.1 [id number] 94603 75521 Methodi 07:00:00 07:24:32 Encounter Marielena Tirado 02520.1.[address] 3.430.2.7 Hospit a .3.625637 l .8 2021-04-24 2021-04-24 [facility] [id number] 561 [place] 00:00:00 00:00:00 MARIELENA [address] 2021-04-24 2021-04-24 Outpatient MANUEL MARTINEZ [facility] 2099 [id number] [place] 00:00:00 00:00:[address] 2021-04-24 2021-04-24 Outpatient MANUEL MARTINEZ [facility] 2100 [id number] [place] 00:00:00 00:00:[address] 2021-04-24 2021-04-24 Orders [place] 1.2.840.1 [id number] Methodi 00:00:00 00:00:00 Only , Zara 23798.1.[address] 3.430.2.7 Hospit a .3.924750 l .8 2021-04-24 2021-04-24 Orders Carr, 1.2.840.1 [id number] 2099 974508 Methodi 00:00:00 00:00:00 Only Irma 90558.1.[address] 3.430.2.7 Hospit a .3.056300 l .8 2021-04-23 2021-04-23 Travel 1.2.840.1 1.2.436.799 1577 316012 Methodi 00:00:00 00:00:[address] 3.430.2.7 0.2.7.3.698 Ho spita .3.344026 084.8 l .8 2021-04-19 2021-04-19 [facility], 1.2.840.1 [id number] 93820 96023 Methodi 23:59:00 23:59:00 Encounter Marielena Tirado 19290.1.[address] 3.430.2.7 Hospit a .3.254709 l .8 2021-04-19 2021-04-19 [facility], 1.2.840.1 [id number] 36642 09383 Methodi 11:45:00 23:59:00 Encounter Marielena Tirado 26031.1.[address] 3.430.2.7 Hospit a .3.928894 l .8 2021-04-19 2021-04-19 [facility], Marielena Tirado 1.2.840.1 29730 1011 [id number] Methodi 11:15:00 12:14:05 Encounter Makayla Cuevas 06099.1.[address] 3.430.2.7 Hospit a .3.535131 l .8 2021-04-19 2021-04-19 Outpatient AUDI [facility] [id number] 718 [place] 00:00:00 00:00:00 MAR[address]LENA [address] 2021-04-19 2021-04-19 [id number] 661 [place] 00:00:00 00:00:00 MARIELENA [address] 2021-04-19 2021-04-19 [facility] [id number] 706 [place] 00:00:00 00:00:00 MARIELENA [address] 2021-04-19 2021-04-19 Orders Manuel Martinez 1.2.840.1 [id number] 453 [id number] Methodi 00:00:00 00:00:[address] 3.430.2.7 Hospit a .3.402267 l .8 2021-04-19 2021-04-19 Travel 1.2.840.1 1.2.926.389 2453 613214 Methodi 00:00:00 00:00:[address] 3.430.2.7 0.2.7.3.698 Ho spita .3.963397 084.8 l .8 2021-04-17 2021-04-17 Infusion Manuel Martinez 1.2.840.1 [id number] 21 [id number] Methodi 07:45:00 12:15:[address] 3.430.2.7 Hospit a .3.492891 l .8 2021-04-17 2021-04-17 Outpatient MANUEL MARTINEZ [facility] 2100 [id number] [place] 00:00:00 00:00:[address] 2021-04-17 2021-04-17 Outpatient MANUEL MARTINEZ [facility] 2100 [id number] [place] 00:00:00 00:00:[address] 2021-04-17 2021-04-17 Travel 1.2.840.1 1.2.339.408 9096 [id number] Methodi 00:00:00 00:00:[address] 3.430.2.7 0.2.7.3.698 Ho spita .3.654892 084.8 l .8 2021-04-13 2021-04-13 [facility], 1.2.840.1 [id number] 20228 97173 Methodi 11:30:00 14:00:12 Encounter Marielena Tirado 30346.1.[address] 3.430.2.7 Hospit a .3.692707 l .8 2021-04-13 2021-04-13 Outpatient [facility] [id number] 153 [place] 00:00:00 00:00:00 MARIELENA [address] 2021-04-12 2021-04-12 [facility], Marielena Ram. 1.2.840.1 [id number] 1011 [id number] Methodi 11:15:00 12:08:31 Encounter Marinelli Stephani 01380.1.[address] 3.430.2.7 Hospit a .3.632239 l .8 2021-04-11 2021-04-12 [facility], 1.2.840.1 [id number] Methodi 01:00:00 01:11:26 Encounter Marielena Tirado 61281.1.[address] 3.430.2.7 Hospit a .3.751269 l .8 2021-04-12 2021-04-12 Outpatient [facility] [id number] 718 [place] 00:00:00 00:00:[address]NA [address] 2021-04-12 2021-04-12 Travel 1.2.840.1 1.2.612.440 0240 866233 Methodi 00:00:00 00:00:[address] 3.430.2.7 0.2.7.3.698 Ho spita .3.397591 084.8 l .8 2021-04-11 2021-04-12 Outpatient [facility] [id number] 717 [place] 00:00:00 00:00:00 MARIELENA [address] 2021-04-11 2021-04-11 [facility] 1.2.840.1 [id number] 05006 Methodi 11:00:00 11:41:12 Encounter Marielena RamMichael 76168.1.[address] 3.430.2.7 Hospit a .3.922629 l .8 2021-04-11 2021-04-11 [facility] [id number] 706 [place] 00:00:00 00:00:00 MARIELENA [address] 2021-04-10 2021-04-10 Infusion Manuel Martinez 1.2.840.1 [id number] 21 [id number] Methodi 11:30:00 16:00:[address] 3.430.2.7 Hospit a .3.678660 l .8 2021-04-10 2021-04-10 Office Manuel Martinez 1.2.840.1 [id number] 981 [id number] Methodi 14:00:00 14:20:[address] 3.430.2.7 Hospit a .3.736785 l .8 2021-04-10 2021-04-10 [facility] 1.2.840.1 [id number] 16161 37453 Methodi 10:00:00 10:18:[address] 3.430.2.7 Hospit a .3.492211 l .8 2021-04-10 2021-04-10 Outpatient [facility] [id number] 706 [place] 00:00:00 00:00:[address] 2021-04-10 2021-04-10 Outpatient MANUEL MARTINEZ [facility] 2100 [id number] [place] 00:00:00 00:00:[address] 2021-04-10 2021-04-10 Outpatient MANUEL MARTINEZ [facility] 2100 [id number] [place] 00:00:00 00:00:[address] 2021-04-10 2021-04-10 Orders Laila 1.2.840.1 [id number] 4552 Methodi 00:00:00 00:00:00 Only Cecil 76963.1.1 [address] 3.430.2.7 Hospit a .3.839360 l .8 2021-04-10 2021-04-10 Orders Carr, 1.2.840.1 [id number] 2100 [id number] Methodi 00:00:00 00:00:00 Only Irma 16476.1.[address] 3.430.2.7 Hospit a .3.398517 l .8 2021-04-10 2021-04-10 Orders Kershaw, 1.2.840.1 [id number] 2689 Methodi 00:00:00 00:00:00 Only Cecilio Mccoy 41507.1.[address] 3.430.2.7 Hospit a .3.068212 l .8 2021-04-10 2021-04-10 Orders Provider, 1.2.840.1 [id number] 2099 [id number] Methodi 00:00:00 00:00:00 Only Unknown 44566.1.[address] 3.430.2.7 Hospit a .3.187995 l .8 2021-04-10 2021-04-10 Travel 1.2.840.1 1.2.375.635 2128 759803 Methodi 00:00:00 00:00:[address] 3.430.2.7 0.2.7.3.698 Ho spita .3.780493 084.8 l .8 2021-04-09 2021-04-09 [facility] 1.2.840.1 [id number] 21001 35415 Methodi 10:58:48 11:12:[address] 3.430.2.7 Hospit a .3.490030 l .8 2021-04-09 2021-04-09 Outpatient [facility] [id number] 706 [place] 00:00:00 00:00:[address] 2021-04-09 2021-04-09 Orders Provider, 1.2.840.1 [id number] 2099 [id number] Methodi 00:00:00 00:00:00 Only Unknown 05350.1.[address] 3.430.2.7 Hospit a .3.389120 l .8 2021-04-04 2021-04-04 [facility] 1.2.840.1 [id number] 12142 45560 Methodi 10:10:51 10:46:[address] 3.430.2.7 Hospit a .3.563519 l .8 2021-04-04 2021-04-04 Outpatient [facility] [id number] 706 [place] 00:00:00 00:00:[address] 2021-04-04 2021-04-04 Travel 1.2.840.1 1.2.211.993 6655 441703 Methodi 00:00:00 00:00:[address] 3.430.2.7 0.2.7.3.698 spita .3.999227 084.8 l .8 2021-04-04 2021-04-04 Orders Provider, 1.2.840.1 [id number] 2100 [id number] Methodi 00:00:00 00:00:00 Only Unknown 26498.1.[address] 3.430.2.7 Hospit a .3.043605 l .8 2021-04-03 2021-04-03 [facility] 1.2.840.1 [id number] 70993 Methodi 23:59:00 23:59:00 Encounter Marielena Tirado 41987.1.[address] 3.430.2.7 Hospit a .3.077471 l .8 2021-04-03 2021-04-03 [facility] 1.2.840.1 [id number] 17372 84327 Methodi 15:30:00 23:59:00 Encounter Marielena Tirado 07746.1.[address] 3.430.2.7 Hospit a .3.023881 l .8 2021-04-03 2021-04-03 [facility] Marielena Tirado 1.2.840.1 62341 1011 [id number] Methodi 11:07:27 14:09:26 Encounter Stephani Marinelli 20386.1.[address] 3.430.2.7 Hospit a .3.159082 l .8 2021-04-03 2021-04-03 [facility] 1.2.840.1 [id number] 76968 16630 Methodi 10:27:11 10:52:[address] 3.430.2.7 Hospit a .3.820379 l .8 2021-04-03 2021-04-03 Outpatient [facility] [id number] 706 [place] 00:00:00 00:00:[address] 2021-04-03 2021-04-03 Outpatient [facility] [id number] 257 [place] 00:00:00 00:00:00 MARIELENA [address] 2021-04-03 2021-04-03 Outpatient [facility] [id number] 993 [place] 00:00:00 00:00:00 MARIELENA [address] 2021-04-03 2021-04-03 Outpatient [facility] [id number] 092 [place] 00:00:00 00:00:00 MARIELENA [address] 2021-04-03 2021-04-03 Orders Provider, 1.2.840.1 [id number] 2100 [id number] [facility]i 00:00:00 00:00:00 Only Unknown 85670.1.[address] 3.430.2.7 Hospit a .3.859512 l .8 2021-04-02 2021-04-02 Office Manuel Martinez 1.2.840.1 [id number] 113 [id number] Methodi 09:20:00 14:41:[address] 3.430.2.7 Hospit a .3.266626 l .8 2021-04-02 2021-04-02 Infusion Manuel Martinez 1.2.840.1 [id number] 21 [id number] Methodi 08:30:00 14:30:[address] 3.430.2.7 Hospit a .3.657350 l .8 2021-04-02 2021-04-02 [facility] 1.2.840.1 [id number] 16315 40311 Methodi 07:15:00 07:51:[address] 3.430.2.7 Hospit a .3.841152 l .8 2021-04-02 2021-04-02 Outpatient [facility] [id number] 706 [place] 00:00:00 00:00:[address] 2021-04-02 2021-04-02 Orders Manuel Martinez 1.2.840.1 [id number] 777 [id number] Methodi 00:00:00 00:00:[address] 3.430.2.7 Hospit a .3.966479 l .8 2021-04-02 2021-04-02 Travel 1.2.840.1 1.2.198.732 5516 808610 [facility]i 00:00:00 00:00:[address] 3.430.2.7 0.2.7.3.698 Ho spita .3.172016 084.8 l .8 2021-04-02 2021-04-02 Orders Provider, 1.2.840.1 [id number] 2099 791338 [facility]i 00:00:00 00:00:00 Only Unknown 00007.1.[address] 3.430.2.7 Hospit a .3.336364 l .8 2021-04-02 2021-04-02 Outpatient MANUEL MARTINEZ [facility] 2100 [id number] [place] 00:00:00 00:00:[address] 2021-04-02 2021-04-02 Outpatient MANUEL MARTINEZ [facility] 2100 [id number] [place] 00:00:00 00:00:[address] 2021-03-30 2021-03-30 [facility] 1.2.840.1 [id number] 10405 Methodi 10:07:02 10:51:[address] 3.430.2.7 Hospit a .3.507219 l .8 2021-03-30 2021-03-30 Orders Provider, 1.2.840.1 [id number] 2099 [id number] [facility]i 00:00:00 00:00:00 Only Unknown 58272.1.[address] 3.430.2.7 Hospit a .3.909391 l .8 2021-03-30 2021-03-30 Outpatient [facility] [id number] 706 [place] 00:00:00 00:00:[address] 2021-03-29 2021-03-29 [facility] [id number] 21001 11802 Methodi 12:15:00 23:59:00 Encounter Marielena RamMichael 89605.1.[address] 3.430.2.7 Hospit a .3.445774 l .8 2021-03-29 2021-03-29 [facility] Audi Marielena RamMichael 1.2.840.1 63307 1011 [id number] Methodi 11:13:18 12:51:37 Encounter Stephani Marinelli 02343.1.[address] 3.430.2.7 Hospit a .3.524231 l .8 2021-03-29 2021-03-29 [facility] 1.2.840.1 [id number] 04465 64327 Methodi 11:00:00 11:12:[address] 3.430.2.7 Hospit a .3.824604 l .8 2021-03-29 2021-03-29 Travel 1.2.840.1 1.2.328.675 4147 128640 Methodi 00:00:00 00:00:[address] 3.430.2.7 0.2.7.3.698 Ho spita .3.491717 084.8 l .8 2021-03-29 2021-03-29 Orders Provider, 1.2.840.1 [id number] 2099 084595 Methodi 00:00:00 00:00:00 Only Unknown 42339.1.[address] 3.430.2.7 Hospit a .3.179918 l .8 2021-03-29 2021-03-29 Outpatient [facility] [id number] [address] [place] [address] 00:00:00 00:00:[address] 2021-03-29 2021-03-29 Outpatient [facility] [id number] 718 [place] 00:00:00 00:00:00 [address]LENA [address] 2021-03-29 2021-03-29 Outpatient [facility] [id number] 445 [place] 00:00:00 00:00:00 MARIELENA [address] 2021-03-28 2021-03-28 [facility] 1.2.840.1 [id number] 97722 Methodi 10:03:08 10:14:[address] 3.430.2.7 Hospit a .3.510431 l .8 2021-03-28 2021-03-28 Orders Provider, 1.2.840.1 [id number] 2100 [id number] Methodi 00:00:00 00:00:00 Only Unknown 01057.1.[address] 3.430.2.7 Hospit a .3.532583 l .8 2021-03-28 2021-03-28 Outpatient [facility] [id number] 706 [place] 00:00:00 00:00:[address] 2021-03-27 2021-03-27 [facility] 1.2.840.1 [id number] 75509 Methodi 14:52:55 15:51:[address] 3.430.2.7 Hospit a .3.895580 l .8 2021-03-26 2021-03-27 [facility] Ventura Navarrete 1.2.840.1 [id number] 207 [id number] Methodi 17:45:00 14:05:00 Encounter LuannFrances 14005.1.[address] 3.430.2.7 Hospit a .3.367934 l .8 2021-03-27 2021-03-27 Orders Provider, 1.2.840.1 [id number] 2100 [id number] Methodi 00:00:00 00:00:00 Only Unknown 46662.1.[address] 3.430.2.7 Hospit a .3.816238 l .8 2021-03-27 2021-03-27 Outpatient [facility] [id number] 706 [place] 00:00:00 00:00:[address] 2021-03-26 2021-03-27 Outpatient FRANCES KONG [facility] 2100 [id number] [place] 00:00:00 00:00:[address] 2021-03-26 2021-03-26 Infusion Manuel Martinez 1.2.840.1 [id number] Methodi 09:30:00 15:30:[address] 3.430.2.7 Hospit a .3.485338 l .8 2021-03-26 2021-03-26 Office Manuel Martinez 1.2.840.1 [id number] 299 [id number] Methodi 11:00:00 11:20:[address] 3.430.2.7 Hospit a .3.153375 l .8 2021-03-26 2021-03-26 Hospital 1.2.840.1 [id number] 06 Methodi 07:34:29 08:12:[address] 3.430.2.7 Hospit a .3.461112 l .8 2021-03-26 2021-03-26 Orders Carr, 1.2.840.1 [id number] 2099 [id number] Methodi 00:00:00 00:00:00 Only Irma 64703.1.[address] 3.430.2.7 Hospit a .3.874935 l .8 2021-03-26 2021-03-26 Travel 1.2.840.1 1.2.148.622 9049 306581 Methodi 00:00:00 00:00:[address] 3.430.2.7 0.2.7.3.698 Ho spita .3.404373 084.8 l .8 2021-03-26 2021-03-26 Orders Provider, 1.2.840.1 [id number] Methodi 00:00:00 00:00:00 Only Unknown 85869.1.[address] 3.430.2.7 Hospit a .3.012771 l .8 2021-03-26 2021-03-26 Outpatient [facility] [id number] 706 [place] 00:00:00 00:00:[address] 2021-03-26 2021-03-26 Outpatient MANUEL MARTINEZ [facility] 2100 [id number] [place] 00:00:00 00:00:[address] 2021-03-26 2021-03-26 Outpatient MANUEL MARTINEZ [facility] 2100 [id number] [place] 00:00:00 00:00:[address] 2021-03-25 2021-03-25 Orders Manuel Martinez 1.2.840.1 [id number] 096 [id number] Methodi 00:00:00 00:00:[address] 3.430.2.7 Hospit a .3.793273 l .8 2021-03-19 2021-03-24 Office Manuel Martinez 1.2.840.1 [id number] 663 [id number] Methodi 09:40:00 05:09:[address] 3.430.2.7 Hospit a .3.316822 l .8 2021-03-23 2021-03-23 Hospital 1.2.840.1 [id number] 15908 24025 Methodi 10:46:03 11:00:[address] 3.430.2.7 Hospit a .3.324609 l .8 2021-03-23 2021-03-23 Travel 1.2.840.1 1.2.136.409 6203 721510 Methodi 00:00:00 00:00:[address] 3.430.2.7 0.2.7.3.698 Ho spita .3.167655 084.8 l .8 2021-03-23 2021-03-23 Orders [facility], 1.2.840.1 [id number] 2099 534019 Methodi 00:00:00 00:00:00 Only Unknown 42041.1.[address] 3.430.2.7 Hospit a .3.604867 l .8 2021-03-23 2021-03-23 Outpatient [facility] [id number] 706 [place] 00:00:00 00:00:[address] 2021-03-22 2021-03-22 [facility], 1.2.840.1 [id number] 24436 06319 Methodi 13:30:00 23:59:00 Encounter Marielena Tirado 74415.1.[address] 3.430.2.7 Hospit a .3.710909 l .8 2021-03-22 2021-03-22 [facility] 1.2.840.1 23750 1011 [id number] Methodi 10:52:49 13:07:42 Encounter Shea Duff Etienne 44182.1.1 006 [facility] 3.430.2.7 Hospita .3.362414 l .8 2021-03-22 2021-03-22 [facility] 1.2.840.1 [id number] 74286 38315 Methodi 10:17:08 10:51:[address] 3.430.2.7 Hospit a .3.654722 l .8 2021-03-22 2021-03-22 Orders Provider, 12.840.1 [id number] 2100 162033 Methodi 00:00:00 00:00:00 Only Unknown 38442.1.[address] 3.430.2.7 Hospit a .3.688147 l .8 2021-03-22 2021-03-22 Outpatient [facility] [id number] 706 [place] 00:00:00 00:00:[address] 2021-03-22 2021-03-22 Outpatient [facility] [id number] 718 [place] 00:00:00 00:00:00 MARIELENA [address] 2021-03-22 2021-03-22 Outpatient [facility] [id number] 824 [place] 00:00:00 00:00:00 MARIELENA [facility] 2021-03-21 2021-03-21 [facility] Donta Almendarez 1.2.840.1 06651 1011 [id number] Methodi 11:02:29 15:39:48 Encounter Shea Duff Etienne 03453.1.[address] Colleen Mcelroy 3.430.2.7 Hospita .3.724464 l .8 2021-03-21 2021-03-21 [facility] 1.2.840.1 [id number] 75515 21765 Methodi 10:01:08 11:01:[address] 3.430.2.7 Hospit a .3.816358 l .8 2021-03-21 2021-03-21 Travel 1.2.840.1 1.2.846.407 8907 432018 Methodi 00:00:00 00:00:[address] 3.430.2.7 0.2.7.3.698 Ho spita .3.561665 084.8 l .8 2021-03-21 2021-03-21 Orders Provider, 1.2.840.1 [id number] 2099 330984 [facility]i 00:00:00 00:00:00 Only Unknown 59177.1.[address] 3.430.2.7 Hospit a .3.544609 l .8 2021-03-21 2021-03-21 Orders Madhu 1.2.840.1 [id number] 374 [id number] Methodi 00:00:00 00:00:00 Only Manuel Mccormack 75971.1.[address] 3.430.2.7 Hospit a .3.366780 l .8 2021-03-21 2021-03-21 Orders Manuel Martinez 1.2.840.1 [id number] 903 [id number] Methodi 00:00:00 00:00:[address] 3.430.2.7 Hospit a .3.179109 l .8 2021-03-21 2021-03-21 Outpatient [facility] [id number] 706 [place] 00:00:00 00:00:[address] 2021-03-21 2021-03-21 Outpatient [facility], [facility] [id number] 616 [place] 00:00:00 00:00:00 SHEA [address] 2021-03-20 2021-03-20 [facility] 1.2.840.1 [id number] 42727 Methodi 10:34:40 11:10:[address] 3.430.2.7 Hospit a .3.991832 l .8 2021-03-20 2021-03-20 Orders Provider, 1.2.840.1 [id number] 2100 [id number] Methodi 00:00:00 00:00:00 Only Unknown 10745.1.[address] 3.430.2.7 Hospit a .3.758487 l .8 2021-03-20 2021-03-20 Outpatient [facility] [id number] 706 [place] 00:00:00 00:00:[address] 2021-03-19 2021-03-19 [facility] 1.2.840.1 [id number] 95664 Methodi 15:33:25 23:59:[address] 3.430.2.7 Hospit a .3.513751 l .8 2021-03-19 2021-03-19 Infusion Manuel Martinez 1.2.840.1 [id number] 21 [id number] Methodi 08:15:00 14:15:[address] 3.430.2.7 Hospit a .3.263933 l .8 2021-03-19 2021-03-19 Orders Provider, 1.2.840.1 [id number] 2099 394927 Methodi 00:00:00 00:00:00 Only Unknown 04294.1.[address] 3.430.2.7 Hospit a .3.911423 l .8 2021-03-19 2021-03-19 Orders Manuel Martinez 1.2.840.1 [id number] 849 7423228 Methodi 00:00:00 00:00:[address] 3.430.2.7 Hospit a .3.227441 l .8 2021-03-19 2021-03-19 Documentat Sousa, 1.2.840.1 [id number] 350 [id number] Methodi 00:00:00 00:00:00 ion Estella 88902.1.[address] 3.430.2.7 Hospit a .3.270784 l .8 2021-03-19 2021-03-19 Travel 1.2.840.1 1.2.380.725 2280 792718 Methodi 00:00:00 00:00:[address] 3.430.2.7 0.2.7.3.698 Ho spita .3.459167 084.8 l .8 2021-03-19 2021-03-19 Outpatient MANUEL MARTINEZ [facility] 2100 [id number] [place] 00:00:00 00:00:[address] 2021-03-19 2021-03-19 Outpatient MANUEL MARTINEZ [facility] 2100 [id number] [place] 00:00:00 00:00:[address] 2021-03-19 2021-03-19 Outpatient [facility] [id number] [address] [place] [address] 00:00:00 00:00:[address] 2021-03-16 2021-03-16 [facility] 1.2.840.1 [id number] 87658 32728 Methodi 10:38:06 11:03:[address] 3.430.2.7 Hospit a .3.066708 l .8 2021-03-16 2021-03-16 Orders Provider, 1.2.840.1 [id number] 2099 977625 Methodi 00:00:00 00:00:00 Only Unknown 16897.1.[address] 3.430.2.7 Hospit a .3.290160 l .8 2021-03-16 2021-03-16 Outpatient [facility] [id number] 706 [place] 00:00:00 00:00:[address] 2021-03-15 2021-03-15 [facility] 1.2.840.1 [id number] 21001 47306 Methodi 12:30:00 23:59:00 Encounter Marielena Tirado 40680.1.[address] 3.430.2.7 Hospit a .3.884220 l .8 2021-03-15 2021-03-15 [facility] Marielena Ramsay 1.2.840.1 45004 1011 [id number] Methodi 11:04:24 12:20:02 Encounter Stephani Marinelli 46468.1.[address] 3.430.2.7 Hospit a .3.324425 l .8 2021-03-15 2021-03-15 [facility] 1.2.840.1 [id number] 50706 Methodi 10:36:21 11:03:[address] 3.430.2.7 Hospit a .3.996449 l .8 2021-03-15 2021-03-15 [facility] 1.2.840.1 1.2.315.696 4878 875757 Methodi 00:00:00 00:00:[address] 3.430.2.7 0.2.7.3.698 spita .3.611396 084.8 l .8 2021-03-15 2021-03-15 Orders Provider, 1.2.840.1 [id number] Methodi 00:00:00 00:00:00 Only Unknown 15616.1.[address] 3.430.2.7 Hospit a .3.652488 l .8 2021-03-15 2021-03-15 Outpatient [facility] [id number] 706 [place] 00:00:00 00:00:[address] 2021-03-15 2021-03-15 Outpatient [facility] [id number] 717 [place] 00:00:00 00:00:00 MARIELENA [address] 2021-03-15 2021-03-15 Outpatient [facility] [id number] 291 [place] 00:00:00 00:00:00 MARIELENA [address] 2021-03-14 2021-03-14 Hospital 1.2.840.1 [id number] 06 Methodi 10:21:09 10:40:[address] 3.430.2.7 Hospit a .3.217253 l .8 2021-03-14 2021-03-14 Orders Provider, 1.2.840.1 [id number] 2100 947718 Methodi 00:00:00 00:00:00 Only Unknown 58200.1.[address] 3.430.2.7 Hospit a .3.142071 l .8 2021-03-14 2021-03-14 Outpatient [facility] [id number] 706 [place] 00:00:00 00:00:[address] 2021-03-13 2021-03-13 [facility] 1.2.840.1 [id number] 90413 Methodi 11:00:00 11:22:[address] 3.430.2.7 Hospit a .3.176972 l .8 2021-03-12 2021-03-13 [facility] 1.2.840.1 [id number] 04927 69190 Methodi 01:00:00 05:01:41 Encounter Marielena Tirado 07021.1.[address] 3.430.2.7 Hospit a .3.513986 l .8 2021-03-13 2021-03-13 Orders Provider, 1.2.840.1 [id number] 2100 751442 Methodi 00:00:00 00:00:00 Only Unknown 74993.1.[address] 3.430.2.7 Hospit a .3.170583 l .8 2021-03-13 2021-03-13 Outpatient [facility] [id number] 706 [place] 00:00:00 00:00:[address] 2021-03-12 2021-03-13 [facility] [id number] 188 [place] 00:00:00 00:00:00 MARIELENA [address] 2021-03-12 2021-03-12 Infusion Manuel Martinez 1.2.840.1 [id number] 21 [id number] Methodi 08:15:00 14:15:[address] 3.430.2.7 Hospit a .3.557460 l .8 2021-03-12 2021-03-12 Office Manuel Martinez 1.2.840.1 [id number] 841 [id number] Methodi 09:40:00 10:00:[address] 3.430.2.7 Hospit a .3.807389 l .8 2021-03-12 2021-03-12 [facility], 1.2.840.1 [id number] 42474 03559 Methodi 07:30:00 07:51:01 Encounter Marielena Tirado 24925.1.[address] 3.430.2.7 Hospit a .3.817919 l .8 2021-03-12 2021-03-12 Documentat Sousa, 1.2.840.1 [id number] 267 [id number] Methodi 00:00:00 00:00:00 ion Estella 26539.1.[address] 3.430.2.7 Hospit a .3.958145 l .8 2021-03-12 2021-03-12 Travel 1.2.840.1 1.2.490.329 3142 370515 Methodi 00:00:00 00:00:[address] 3.430.2.7 0.2.7.3.698 Ho spita .3.049520 084.8 l .8 2021-03-12 2021-03-12 Orders Provider, 1.2.840.1 [id number] 2099 362925 Methodi 00:00:00 00:00:00 Only Unknown 32730.1.[address] 3.430.2.7 Hospit a .3.502155 l .8 2021-03-12 2021-03-12 [id number] 706 [place] 00:00:00 00:00:00 MARIELENA [address] 2021-03-12 2021-03-12 Outpatient MANUEL MARTINEZ [facility] 2100 [id number] [place] 00:00:00 00:00:[address] 2021-03-12 2021-03-12 Outpatient MANUEL MARTINEZ [facility] 2100 [id number] [place] 00:00:00 00:00:[address] 2021-03-11 2021-03-11 Orders Manuel Martinez 1.2.840.1 [id number] 113 [id number] Methodi 00:00:00 00:00:[address] 3.430.2.7 Hospit a .3.808928 l .8 2021-03-08 2021-03-08 Travel 1.2.840.1 1.2.692.119 5879 979963 Methodi 00:00:00 00:00:[address] 3.430.2.7 0.2.7.3.698 Ho spita .3.656737 084.8 l .8 2021-03-07 2021-03-07 Nurse Only Rosacina, 1.2.840.1 [id number] 2 [id number] Methodi 00:00:00 00:00:[address] 3.430.2.7 Hospit a .3.596720 l .8 2021-03-07 2021-03-07 Orders Rosacina, 1.2.840.1 [id number] [id number] Methodi 00:00:00 00:00:00 Only Merlessa 62477.1.[address] 3.430.2.7 Hospit a .3.780234 l .8 2021-03-05 2021-03-05 Infusion Manuel Matrinez 1.2.840.1 [id number] Methodi 08:15:00 14:15:[address] 3.430.2.7 Hospit a .3.983996 l .8 2021-03-05 2021-03-05 Office Manuel Martinez 1.2.840.1 [id number] 831 [id number] Methodi 09:40:00 10:00:[address] 3.430.2.7 Hospit a .3.750347 l .8 2021-03-05 2021-03-05 Oncology Vásquez, 1.2.840.1 [id number] 2099 194050 Methodi 00:00:00 00:00:00 [facility] Evgeny 45099.1.1 774 s t ip 3.430.2.7 Hospit a .3.963270 l .8 2021-03-05 2021-03-05 Travel 1.2.840.1 1.2.296.650 8159 555396 Methodi 00:00:00 00:00:[address] 3.430.2.7 0.2.7.3.698 Ho spita .3.365548 084.8 l .8 2021-03-05 2021-03-05 Outpatient MANUEL MARTINEZ [facility] 2100 [id number] [place] 00:00:00 00:00:[address] 2021-03-05 2021-03-05 Outpatient MANUEL MARTINEZ [facility] 2100 [id number] [place] 00:00:00 00:00:[address] 2021-03-02 2021-03-02 Travel 1.2.840.1 1.2.759.926 7278 563085 Methodi 00:00:00 00:00:[address] 3.430.2.7 0.2.7.3.698 Ho spita .3.739078 084.8 l .8 2021-02-27 2021-02-27 [facility], 1.2.840.1 [id number] 21001 34475 Methodi 00:00:00 00:00:00 Work Yanni 40140.1.[address] 3.430.2.7 Hospit a .3.885004 l .8 2021-02-26 2021-02-26 Infusion Manuel Martinez 1.2.840.1 [id number] Methodi 09:00:00 15:00:[address] 3.430.2.7 Hospit a .3.644515 l .8 2021-02-26 2021-02-26 [facility] 1.2.840.1 [id number] 97899 96027 Methodi 12:00:00 12:45:13 Encounter Marielena Tirado 88124.1.[address] 3.430.2.7 Hospit a .3.616315 l .8 2021-02-26 2021-02-26 [facility] Marielena Ramsay 1.2.840.1 71031 1189 [id number] Methodi 10:15:00 10:59:00 Encounter Artem Urrutia 06777.1.[address] 3.430.2.7 Hospit a .3.012454 l .8 2021-02-26 2021-02-26 Office Manuel Martinez 1.2.840.1 [id number] 054 [id number] Methodi 10:00:00 10:20:[address] 3.430.2.7 Hospit a .3.514740 l .8 2021-02-26 2021-02-26 Documentat Ch[place] 1.2.840.1 [id number] Methodi 00:00:00 00:00:00 Zara meyer 94329.1.[address] 3.430.2.7 Hospit a .3.658799 l .8 2021-02-26 2021-02-26 Travel 1.2.840.1 1.2.951.740 7775 001789 Methodi 00:00:00 00:00:[address] 3.430.2.7 0.2.7.3.698 Ho spita .3.977678 084.8 l .8 2021-02-26 2021-02-26 Outpatient MANUEL MARTINEZ [facility] 2100 [id number] [place] 00:00:00 00:00:[address] 2021-02-26 2021-02-26 Outpatient MANUEL MARTINEZ [facility] 2100 [id number] [place] 00:00:00 00:00:[address] 2021-02-26 2021-02-26 Outpatient AUDI [facility] [id number] 893 [place] 00:00:00 00:00:00 MARIELENA [address] 2021-02-26 2021-02-26 Outpatient [facility] [id number] 893 [place] 00:00:00 00:00:00 MARIELENA [address] 2021-02-22 2021-02-22 [facility] MartinezManuel 1.2.840.1 [id number] 21 [id number] Methodi 06:58:27 23:59:[address] 3.430.2.7 Hospit a .3.314893 l .8 2021-02-22 2021-02-22 Travel 1.2.840.1 1.2.061.270 6431 125468 Methodi 00:00:00 00:00:[address] 3.430.2.7 0.2.7.3.698 Ho spita .3.008882 084.8 l .8 2021-02-22 2021-02-22 Outpatient [facility] 2099 [id number] [place] 00:00:00 00:00:[address] 2021-02-19 2021-02-20 [facility], 1.2.840.1 [id number] 16565 03774 Methodi 01:00:00 04:58:29 Encounter Marielena Tirado 71639.1.[address] 3.430.2.7 Hospit a .3.391494 l .8 2021-02-20 2021-02-20 [facility], 1.2.840.1 [id number] 2099 [id number] Methodi 00:00:00 00:00:00 Mar[address]156.1.[address] 3.430.2.7 Hospit a .3.277162 l .8 2021-02-19 2021-02-20 Outpatient [facility] [id number] 188 [place] 00:00:00 00:00:00 MARIELENA [address] 2021-02-19 2021-02-19 Travel 1.2.840.1 1.2.235.911 3406 [id number] Methodi 00:00:00 00:00:[address] 3.430.2.7 0.2.7.3.698 Ho spita .3.674359 084.8 l .8 2021-02-19 2021-02-19 Eloise Guillermo, 1.2.840.1 [id number] 735 [id number] Methodi 00:00:00 00:00:00 Only Margaret 98502.1.[address] 3.430.2.7 Hospit a .3.982085 l .8 2021-02-15 2021-02-15 Telephone Audi, 1.2.840.1 [id number] 2100 [id number] Methodi 00:00:00 00:00:00 Mar[address] 3.430.2.7 Hospit a .3.769822 l .8 2021-02-15 2021-02-15 Travel 1.2.840.1 1.2.176.057 6866 386561 Methodi 00:00:00 00:00:[address] 3.430.2.7 0.2.7.3.698 Ho spita .3.590518 084.8 l .8 2021-02-07 2021-02-14 Office Manuel Martinez 1.2.840.1 [id number] 077 [id number] Methodi 11:20:00 07:01:[address] 3.430.2.7 Hospit a .3.509648 l .8 2021-02-14 2021-02-14 Eloise Guillermo, 1.2.840.1 [id number] 044 [id number] Methodi 00:00:00 00:00:00 Only Margaret 60809.1.[address] 3.430.2.7 Hospit a .3.714116 l .8 2021-02-12 2021-02-12 Travel 1.2.840.1 1.2.358.251 1575 201831 Methodi 00:00:00 00:00:[address] 3.430.2.7 0.2.7.3.698 Ho spita .3.173455 084.8 l .8 2021-02-09 2021-02-09 Orders Manuel Martinez 1.2.840.1 [id number] 383 [id number] Methodi 00:00:00 00:00:[address] 3.430.2.7 Hospit a .3.866522 l .8 2021-02-09 2021-02-09 Orders Sri, 1.2.840.1 [id number] 7931 Methodi 00:00:00 00:00:00 Only Deanna 31773.1.[address] 3.430.2.7 Hospit a .3.039556 l .8 2021-02-08 2021-02-08 Orders Ezra Banks, 1.2.840.1 [id number] Methodi 00:00:00 00:00:00 Only Ember 52832.1.[address] 3.430.2.7 Hospit a .3.440390 l .8 2021-02-07 2021-02-07 [facility] Manuel Martinez 1.2.840.1 [id number] 21 [id number] Methodi 09:30:00 23:59:[address] 3.430.2.7 Hospit a .3.189380 l .8 2021-02-07 2021-02-07 Travel 1.2.840.1 1.2.677.723 5624 352907 Methodi 00:00:00 00:00:[address] 3.430.2.7 0.2.7.3.698 Ho spita .3.488621 084.8 l .8 2021-02-07 2021-02-07 Outpatient MANUEL MARTINEZ [facility] 2100 [id number] [place] 00:00:00 00:00:[address] 2021-02-07 2021-02-07 Outpatient MANUEL MARTINEZ [facility] 2100 [id number] [place] 00:00:00 00:00:[address] 2021-02-06 2021-02-06 Telephone Delfino, 1.2.840.1 [id number] 2100 [id number] Methodi 00:00:00 00:00:[address] 3.430.2.7 Hospit a .3.753920 l .8 2021-02-05 2021-02-05 Telephone Conner, 1.2.840.1 [id number] 2099 [id number] Methodi 00:00:00 00:00:00 Lotmahendra Richards 75895.1.1 [address] 3.430.2.7 Hospit a .3.853898 l .8 2021-02-04 2021-02-04 Orders Manuel Martinez 1.2.840.1 [id number] 615 [id number] Methodi 00:00:00 00:00:[address] 3.430.2.7 Hospit a .3.699616 l .8 2021-01-25 2021-02-01 [facility], 1.2.840.1 [id number] 2440 Methodi 11:30:00 08:02:08 Donta Rodriguez 80928.1.[address] 3.430.2.7 Hospit a .3.759329 l .8 2021-01-29 2021-01-29 [facility], 1.2.840.1 [id number] 31553 49271 Methodi 09:21:00 17:47:00 Encounter Donta Rodriguez 53908.1.[address] 3.430.2.7 Hospit a .3.301434 l .8 2021-01-29 2021-01-29 [facility], 1.2.840.1 [id number] 1468 Methodi 14:20:00 16:30:00 Donta Rodriguez 13801.1.[address] 3.430.2.7 Hospit a .3.873082 l .8 2021-01-29 2021-01-29 Anesthesia Hugh Damon 1.2.840.1 1040 01567 [id number] Methodi 13:05:00 14:57:00 Event Lata Chowdary 99351.1.[address] 3.430.2.7 Hospit a .3.421544 l .8 2021-01-29 2021-01-29 Travel 1.2.840.1 1.2.272.185 3365 [id number] Methodi 00:00:00 00:00:[address] 3.430.2.7 0.2.7.3.698 Ho spita .3.768292 084.8 l .8 2021-01-29 2021-01-29 Outpatient [facility] [id number] 641 [place] 00:00:00 00:00:[address] 2021-01-25 2021-01-25 Office Adalid 1.2.840.1 [id number] 9505 Methodi 10:00:00 10:53:07 Visit Donta Rodriguez 08481.1.[address] 3.430.2.7 Hospit a .3.091291 l .8 2021-01-25 2021-01-25 Travel 1.2.840.1 1.2.212.796 4389 815901 Methodi 00:00:00 00:00:[address] 3.430.2.7 0.2.7.3.698 Ho spita .3.654024 084.8 l .8 2021-01-25 2021-01-25 Outpatient [facility] [id number] 575 [place] 00:00:00 00:00:00 EDQUENT[address] 2021-01-25 2021-01-25 [facility] [id number] [place] 00:00:00 00:00:00 EDQUENTIN [address] 2021-01-24 2021-01-24 Abstract Levi [id number] [id number] [facility] 00:00:00 00:00:[id number] [id number] Hospit a .3.164288 l .8 2021-01-24 2021-01-24 Telephone Manuel Martinez [id number] [facility] 00:00:00 00:00:00 68101.1.1 407 [facility].7 [id number] 2021-01-10 2021-01-10 Outpatient MANUEL MARTINEZ [facility] [id number] [place] 00:00:00 00:00:[address] 2021-01-10 2021-01-10 Outpatient MANUEL MARTINEZ [facility] 2100 [id number] [place] 00:00:00 00:00:[address] 2021-01-05 2021-01-05 Outpatient LUBNA [facility] 2100 [id number] [place] 00:00:00 00:00:[address] 2020-12-13 2020-12-13 Outpatient MANUEL MARTINEZ [facility] 2100 [id number] [place] 00:00:00 00:00:[address] 2020-12-13 2020-12-13 Outpatient MANUEL MARTINEZ [facility] 2100 [id number] [place] 00:00:00 00:00:[address] 2020-12-06 2020-12-06 Outpatient MANUEL MARTINEZ [facility] 2100 [id number] [place] 00:00:00 00:00:[address] 2020-11-15 2020-11-15 Outpatient MANUEL MARTINEZ [facility] 2100 [id number] [place] 00:00:00 00:00:[address] 2020-11-15 2020-11-15 Outpatient MARTINEZMANUEL [facility] 2100 [id number] [place] 00:00:00 00:00:[address] 2020-10-18 2020-10-18 Outpatient MANUEL MARTINEZ [facility] 2100 [id number] [place] 00:00:00 00:00:[address] 2020-10-18 2020-10-18 Outpatient LUBNA [facility] [id number] [id number] [place] 00:00:00 00:00:[address] 2020-09-20 2020-09-20 Outpatient LUBNAMANUEL [facility] 2100 [id number] [place] 00:00:00 00:00:[address] 2020-09-20 2020-09-20 Outpatient MANUEL MARTINEZ [facility] 2100 [id number] [place] 00:00:00 00:00:[address] 2020-09-01 2020-09-01 Outpatient MANUEL MARTINEZ [facility] 2100 [id number] [place] 00:00:00 00:00:[address] 2020-08-23 2020-08-23 Outpatient MANUEL MARTINEZ [facility] 2100 [id number] [place] 00:00:00 00:00:[address] 2020-08-23 2020-08-23 Outpatient MANUEL MARTINEZ [facility] 2100 [id number] [place] 00:00:00 00:00:[address] 2020-07-26 2020-07-26 Outpatient MANUEL MARTINEZ [facility] 2100 [id number] [place] 00:00:00 00:00:[address] 2020-07-26 2020-07-26 Outpatient MANUEL MARTINEZ [facility] 2100 [id number] [place] 00:00:00 00:00:[address] 2020-06-30 2020-07-14 Outpatient MANUEL MARTINEZ [facility] 2100 [id number] [place] 00:00:00 00:00:[address] 2020-06-28 2020-06-28 Outpatient MANUEL MARTINEZ [facility] 2100 [id number] [place] 00:00:00 00:00:[address] 2020-06-28 2020-06-28 Outpatient MANUEL MARTINEZ [facility] 2100 [id number] [place] 00:00:00 00:00:[address] 2020-05-31 2020-05-31 Outpatient MANUEL MARTINEZ [facility] 2100 [id number] [place] 00:00:00 00:00:[address] 2020-05-31 2020-05-31 Outpatient MANUEL MARTINEZ [facility] 2100 [id number] [place] 00:00:00 00:00:[address] 2020-05-29 2020-05-29 Outpatient MANUEL MARTINEZ [facility] 2100 [id number] [place] 00:00:00 00:00:[address] 2020-05-03 2020-05-03 Outpatient MANUEL MARTINEZ [facility] 2100 [id number] [place] 00:00:00 00:00:[address] 2020-05-03 2020-05-03 Outpatient MANUEL MARTINEZ [facility] 2100 [id number] [place] 00:00:00 00:00:[address] 2020-04-04 2020-04-04 Outpatient MARTINEZ, [facility] 2100 [id number] [place] 00:00:00 00:00:[address] 2020-04-04 2020-04-04 Outpatient MARTINEZMANUEL [facility] 2100 [id number] [place] 00:00:00 00:00:[address] 2020-03-16 2020-03-16 Outpatient MARTINEZ, [facility] 2100 [id number] [place] 00:00:00 00:00:[address] 2020-03-08 2020-03-08 Outpatient MARTINEZMANUEL [facility] 2100 [id number] [place] 00:00:00 00:00:[address] 2020-03-08 2020-03-08 Outpatient MANUEL MARTINEZ [facility] 2100 [id number] [place] 00:00:00 00:00:[address] 2020-02-09 2020-02-09 Outpatient MARTINEZ, MANUEL [facility] 2100 [id number] [place] 00:00:00 00:00:[address] 2020-02-09 2020-02-09 Outpatient MARTINEZ [facility] [id number] [id number] [place] 00:00:00 00:00:[address] 2020-01-12 2020-01-12 Outpatient LUBNA [facility] [id number] [id number] [place] 00:00:00 00:00:[address] 2020-01-12 2020-01-12 Outpatient LUBNA [facility] 2100 [id number] [place] 00:00:00 00:00:[address] 2020-01-11 2020-01-11 Outpatient MARTINEZ [facility] 2100 [id number] [place] 00:00:00 00:00:[address] 2019-12-22 2019-12-22 Outpatient MARTINEZ [facility] [id number] [id number] [place] 00:00:00 00:00:[address] 2019-12-15 2019-12-15 Outpatient MARTINEZMANUEL [facility] 2100 [id number] [place] 00:00:00 00:00:[address] 2019-12-15 2019-12-15 Outpatient MARTINEZ, [facility] 2100 [id number] [place] 00:00:00 00:00:[address] 2019-12-15 2019-12-15 Outpatient MANUEL MARTINEZ [facility] 2100 [id number] [place] 00:00:00 00:00:[address] 2019-12-02 2019-12-02 Outpatient LUBNA [facility] [id number] [id number] [place] 00:00:00 00:00:[address] 2019-11-17 2019-11-17 Outpatient LUBNA [facility] [id number] [id number] [place] 00:00:00 00:00:[address] 2019-11-17 2019-11-17 Outpatient LUBNA [facility] [id number] [id number] [place] 00:00:00 00:00:[address] 2019-11-03 2019-11-03 Outpatient MADHU [facility] 2100 [id number] [place] 00:00:00 00:00:00 MANUEL [address] 2019-10-20 2019-10-20 Outpatient LUBNA [facility] [id number] [id number] [place] 00:00:00 00:00:[address] 2019-10-20 2019-10-20 Outpatient LUBNA [facility] 2100 [id number] [place] 00:00:00 00:00:[address] 2019-10-13 2019-10-13 Outpatient FARKELSIE, [facility] [id number] [place] 00:00:00 00:00:00 MARIELENA [address] 2019-10-13 2019-10-13 Outpatient FARACH, [facility] [id number] [place] 00:00:00 00:00:00 MARIELENA [address] 2019-10-13 2019-10-13 Outpatient FARACH, [facility] [id number] [place] 00:00:00 00:00:00 MARIELENA [address] 2019-10-11 2019-10-12 Outpatient FARACH, [facility] [id number] [place] 00:00:00 00:00:00 MARIELENA [address] 2019-10-11 2019-10-11 Outpatient FARACH, [facility] [id number] [place] 00:00:00 00:00:00 MARIELENA [address] 2019-10-08 2019-10-08 Outpatient FARACH, [facility] [id number] [place] 00:00:00 00:00:00 MARIELENA [address] 2019-10-08 2019-10-08 Outpatient FARACH, [facility] [id number] [place] 00:00:00 00:00:00 MARIELENA [address] 2019-10-06 2019-10-06 Outpatient FARACH, [facility] [id number] [place] 00:00:00 00:00:00 MARIELENA [address] 2019-10-05 2019-10-05 Outpatient FARACH, [facility] [id number] [place] 00:00:00 00:00:00 MARIELENA [address] 2019-09-29 2019-09-29 Outpatient MANUEL MARTINEZ [facility] 2100 [id number] [place] 00:00:00 00:00:[address] 2019-09-29 2019-09-29 Outpatient MANUEL MARTINEZ [facility] 2100 [id number] [place] 00:00:00 00:00:[address] 2019-09-29 2019-09-29 Outpatient LUBNA [facility] 2100 [id number] [place] 00:00:00 00:00:[address] 2019-09-29 2019-09-29 Outpatient LUBNA [facility] [id number] [id number] [place] 00:00:00 00:00:[address] 2019-09-29 2019-09-29 Outpatient FARKELSIE, [facility] [id number] [place] 00:00:00 00:00:00 MARIELENA [address] 2019-09-23 2019-09-23 Outpatient FARACH, [facility] [id number] [place] 00:00:00 00:00:00 MARIELENA [address] 2019-09-20 2019-09-21 Outpatient FARACH, [facility] [id number] [place] 00:00:00 00:00:00 MARIELENA [address] 2019-09-20 2019-09-20 Outpatient MANUEL MARTINEZ [facility] 2100 [id number] [place] 00:00:00 00:00:[address] 2019-09-20 2019-09-20 Outpatient FARKELSIE, [facility] [id number] [place] 00:00:00 00:00:00 MARIELENA [address] 2019-09-10 2019-09-11 Outpatient FARACH, [facility] [id number] [place] 00:00:00 00:00:00 MARIELENA [address] 2019-09-02 2019-09-02 Outpatient CORDOBA, [facility] [id number] [place] 00:00:00 00:00:00 EDWARD [address] 2019-08-24 2019-08-24 Outpatient CORDOBA, [facility] [id number] [place] 00:00:00 00:00:00 EDWARD [address] 2019-08-02 2019-08-02 Outpatient CORDOBA, [facility] [id number] [place] 00:00:00 00:00:00 EDWARD [address] 2019-07-20 2019-07-20 Outpatient CORDOBA, [place] [id number] [place] 00:00:00 00:00:00 EDWARD [address] 2019-07-08 2019-07-08 Outpatient CORDOBA, [facility] [id number] [place] 00:00:00 00:00:00 EDWARD [address] 2019-07-08 2019-07-08 Outpatient CORDOBA, [facility] [id number] [place] 00:00:00 00:00:00 EDWARD [address] 2019-07-08 2019-07-08 Outpatient CORDOBA, [facility] [id number] [place] 00:00:00 00:00:00 EDWARD [address] 2019-07-08 2019-07-08 Outpatient CORDOBA, [facility] [id number] [place] 00:00:00 00:00:00 EDWARD [address] Results Test Description Test Time Test Comments Results Result Comments Source POC glucose 2022-01-08 12:55:00 Test Item Value Reference Range Interpretation Comme nts POC glucose (test code = 112 mg/dL 65-99 H Ope rator Name: Edilberto Yee [id number]) ID: [id number] hartable: [facility] 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 Interpretation (test code = Abnormal 54173-0) [facility] [id number] 19:56:56 Test Item Value Reference Range Interpretation Comments Course ID (test code = C2 5706) Course Start Date (test 2021-03-02 @13:32 code = 5707) Treatment Elapsed Days (test code = 5709) Course Intent (test Curative w/chemo code = 5686) Treatment Dates (test Course End Date: code = 5685) 2021-04-27 @13:56First Treatment Date: 2021-03-12 @07:48Last Treatment Date: 2021-04-24 @07:23 Reference Point ID Mediastinum (test code = 5710) Dosage Given to Date in Gy (test code = 5711) Plan ID (test code = Mediastinum 5713) Plan Name (test code = Mediastinum 5714) Fractions Treated to 20 of 20 Date (test code = 5715) Prescribed Dose Per Fraction in Gy (test code = 5716) Prescription Dose in cGy (test code = 5717) [facility] DAILY [id number] 13:24:35 Test Item Value Reference Range Interpretation Comments Course ID (test code = C2 5706) Course Start Date (test 2021-03-02 @13:32 code = 5707) Treatment Elapsed Days (test code = 5709) Course Intent (test code Curative w/chemo = 5686) Treatment Dates (test First Treatment Date: code = 5685) 2021-03-12 @07:48Last Treatment Date: 2021-04-24 @07:23 Reference Point ID (test Boost code = 5710) Dosage Given to Date in Gy (test code = 5711) Session Dosage Given in Gy (test code = 5712) Plan ID (test code = Boost 5713) Fractions Treated to 10 10 Date (test code = 5715) Prescribed Dose Per Fraction in Gy (test code = 5716) Prescription Dose in cGy (test code = 5717) [facility] DAILY [id number] 16:45:25 Test Item Value Reference Range Interpretation Comments Course ID (test code = C2 5706) Course Start Date (test 2021-03-02 @13:32 code = 5707) Treatment Elapsed Days (test code = 5709) Course Intent (test code Curative w/chemo = 5686) Treatment Dates (test First Treatment Date: code = 5685) 2021-03-12 @07:48Last Treatment Date: 2021-04-23 @10:43 Reference Point ID (test Boost code = 5710) Dosage Given to Date in Gy (test code = 5711) Session Dosage Given in Gy (test code = 5712) Plan ID (test code = Boost 5713) Fractions Treated to 9 of 10 Date (test code = 5715) Prescribed Dose Per Fraction in Gy (test code = 5716) Prescription Dose in cGy (test code = 5717) [facility] ONC DAILY [id number] 16:45:46 Test Item Value Reference Range Interpretation Comments Course ID (test code = C2 5706) Course Start Date (test 2021-03-02 @13:32 code = 5707) Treatment Elapsed Days (test code = 5709) Course Intent (test code Curative w/chemo = 5686) Treatment Dates (test First Treatment Date: code = 5685) 2021-03-12 @07:48Last Treatment Date: 2021-04-20 @10:44 Reference Point ID (test Boost code = 5710) Dosage Given to Date in Gy (test code = 5711) Session Dosage Given in Gy (test code = 5712) Plan ID (test code = Boost 5713) Fractions Treated to 8 10 Date (test code = 5715) Prescribed Dose Per Fraction in Gy (test code = 5716) Prescription Dose in cGy (test code = 5717) [facility] DAILY [id number] 17:14:34 Test Item Value Reference Range Interpretation Comments Course ID (test code = C2 5706) Course Start Date (test 2021-03-02 @13:32 code = 5707) Treatment Elapsed Days (test code = 5709) Course Intent (test code Curative w/chemo = 5686) Treatment Dates (test First Treatment Date: code = 5685) 2021-03-12 @07:48Last Treatment Date: 2021-04-19 @11:12 Reference Point ID (test Boost code = 5710) Dosage Given to Date in Gy (test code = 5711) Session Dosage Given in Gy (test code = 5712) Plan ID (test code = Boost 5713) Fractions Treated to 7 of 10 Date (test code = 5715) Prescribed Dose Per Fraction in Gy (test code = 5716) Prescription Dose in cGy (test code = 5717) [facility] ONC DAILY [id number] 17:29:35 Test Item Value Reference Range Interpretation Comments Course ID (test code = C2 5706) Course Start Date (test 2021-03-02 @13:32 code = 5707) Treatment Elapsed Days (test code = 5709) Course Intent (test code Curative w/chemo = 5686) Treatment Dates (test First Treatment Date: code = 5685) 2021-03-12 @07:48Last Treatment Date: 2021-04-18 @11:28 Reference Point ID (test Boost code = 5710) Dosage Given to Date in Gy (test code = 5711) Session Dosage Given in Gy (test code = 5712) Plan ID (test code = Boost 5713) Fractions Treated to 6 of 10 Date (test code = 5715) Prescribed Dose Per Fraction in Gy (test code = 5716) Prescription Dose in cGy (test code = 5717) [facility] DAILY [id number] 13:11:43 Test Item Value Reference Range Interpretation Comments Course ID (test code = C2 5706) Course Start Date (test 2021-03-02 @13:32 code = 5707) Treatment Elapsed Days (test code = 5709) Course Intent (test code Curative w/chemo = 5686) Treatment Dates (test First Treatment Date: code = 5685) 2021-03-12 @07:48Last Treatment Date: 2021-04-17 @07:10 Reference Point ID (test Boost code = 5710) Dosage Given to Date in Gy (test code = 5711) Session Dosage Given in Gy (test code = 5712) Plan ID (test code = Boost 5713) Fractions Treated to 5 of 10 Date (test code = 5715) Prescribed Dose Per Fraction in Gy (test code = 5716) Prescription Dose in cGy (test code = 5717) [facility] DAILY [id number] 16:51:36 Test Item Value Reference Range Interpretation Comments Course ID (test code = C2 5706) Course Start Date (test 2021-03-02 @13:32 code = 5707) Treatment Elapsed Days (test code = 5709) Course Intent (test code Curative w/chemo = 5686) Treatment Dates (test First Treatment Date: code = 5685) 2021-03-12 @07:48Last Treatment Date: 2021-04-16 @10:50 Reference Point ID (test Boost code = 5710) Dosage Given to Date in Gy (test code = 5711) Session Dosage Given in Gy (test code = 5712) Plan ID (test code = Boost 5713) Fractions Treated to 4 of 10 Date (test code = 5715) Prescribed Dose Per Fraction in Gy (test code = 5716) Prescription Dose in cGy (test code = 5717) [facility] ONC DAILY [id number] 17:37:41 Test Item Value Reference Range Interpretation Comments Course ID (test code = C2 5706) Course Start Date (test 2021-03-02 @13:32 code = 5707) Treatment Elapsed Days (test code = 5709) Course Intent (test code Curative w/chemo = 5686) Treatment Dates (test First Treatment Date: code = 5685) 2021-03-12 @07:48Last Treatment Date: 2021-04-13 @11:36 Reference Point ID (test Boost code = 5710) Dosage Given to Date in Gy (test code = 5711) Session Dosage Given in Gy (test code = 5712) Plan ID (test code = Boost 5713) Fractions Treated to 3 10 Date (test code = 5715) Prescribed Dose Per Fraction in Gy (test code = 5716) Prescription Dose in cGy (test code = 5717) [facility] DAILY [id number] 17:27:38 Test Item Value Reference Range Interpretation Comments Course ID (test code = C2 5706) Course Start Date (test 2021-03-02 @13:32 code = 5707) Treatment Elapsed Days (test code = 5709) Course Intent (test code Curative w/chemo = 5686) Treatment Dates (test First Treatment Date: code = 5685) 2021-03-12 @07:48Last Treatment Date: 2021-04-12 @11:26 Reference Point ID (test Boost code = 5710) Dosage Given to Date in Gy (test code = 5711) Session Dosage Given in Gy (test code = 5712) Plan ID (test code = Boost 5713) Fractions Treated to 2 of 10 Date (test code = 5715) Prescribed Dose Per Fraction in Gy (test code = 5716) Prescription Dose in cGy (test code = 5717) [facility] DAILY [id number] 17:41:13 Test Item Value Reference Range Interpretation Comments Course ID (test code = C2 5706) Course Start Date (test 2021-03-02 @13:32 code = 5707) Treatment Elapsed Days (test code = 5709) Course Intent (test code Curative w/chemo = 5686) Treatment Dates (test First Treatment Date: code = 5685) 2021-03-12 @07:48Last Treatment Date: 2021-04-11 @11:39 Reference Point ID (test Boost code = 5710) Dosage Given to Date in Gy (test code = 5711) Session Dosage Given in Gy (test code = 5712) Plan ID (test code = Boost 5713) Fractions Treated to 10 Date (test code = 5715) Prescribed Dose Per Fraction in Gy (test code = 5716) Prescription Dose in cGy (test code = 5717) [facility] DAILY [id number] 16:18:41 Test Item Value Reference Range Interpretation Comments Course ID (test code = C2 5706) Course Start Date (test 2021-03-02 @13:32 code = 5707) Treatment Elapsed Days (test code = 5709) Course Intent (test Curative w/chemo code = 5686) Treatment Dates (test First Treatment Date: code = 5685) 2021-03-12 @07:48Last Treatment Date: 2021-04-10 @10:17 Reference Point ID Mediastinum (test code = 5710) Dosage Given to Date in Gy (test code = 5711) Session Dosage Given in Gy (test code = 5712) Plan ID (test code = Mediastinum 5713) Fractions Treated to 20 Date (test code = 5715) Prescribed Dose Per Fraction in Gy (test code = 5716) Prescription Dose in cGy (test code = 5717) [facility] DAILY [id number] 17:12:42 Test Item Value Reference Range Interpretation Comments Course ID (test code = C2 5706) Course Start Date (test 2021-03-02 @13:32 code = 5707) Treatment Elapsed Days (test code = 5709) Course Intent (test Curative w/chemo code = 5686) Treatment Dates (test First Treatment Date: code = 5685) 2021-03-12 @07:48Last Treatment Date: 2021-04-09 @11:11 Reference Point ID Mediastinum (test code = 5710) Dosage Given to Date in Gy (test code = 5711) Session Dosage Given in Gy (test code = 5712) Plan ID (test code = Mediastinum 5713) Fractions Treated to Date (test code = 5715) Prescribed Dose Per Fraction in Gy (test code = 5716) Prescription Dose in cGy (test code = 5717) [facility] DAILY [id number] 16:46:28 Test Item Value Reference Range Interpretation Comments Course ID (test code = C2 5706) Course Start Date (test 2021-03-02 @13:32 code = 5707) Treatment Elapsed Days (test code = 5709) Course Intent (test Curative w/chemo code = 5686) Treatment Dates (test First Treatment Date: code = 5685) 2021-03-12 @07:48Last Treatment Date: 2021-04-04 @10:44 Reference Point ID Mediastinum (test code = 5710) Dosage Given to Date in Gy (test code = 5711) Session Dosage Given in Gy (test code = 5712) Plan ID (test code = Mediastinum 5713) Fractions Treated to Date (test code = 5715) Prescribed Dose Per Fraction in Gy (test code = 5716) Prescription Dose in cGy (test code = 5717) [facility] DAILY [id number] 16:52:47 Test Item Value Reference Range Interpretation Comments Course ID (test code = C2 5706) Course Start Date (test 2021-03-02 @13:32 code = 5707) Treatment Elapsed Days (test code = 5709) Course Intent (test Curative w/chemo code = 5686) Treatment Dates (test First Treatment Date: code = 5685) 2021-03-12 @07:48Last Treatment Date: 2021-04-03 @10:51 Reference Point ID Mediastinum (test code = 5710) Dosage Given to Date in Gy (test code = 5711) Session Dosage Given in Gy (test code = 5712) Plan ID (test code = Mediastinum 5713) Fractions Treated to Date (test code = 5715) Prescribed Dose Per Fraction in Gy (test code = 5716) Prescription Dose in cGy (test code = 5717) [facility] DAILY [id number] 13:51:59 Test Item Value Reference Range Interpretation Comments Course ID (test code = C2 5706) Course Start Date (test 2021-03-02 @13:32 code = 5707) Treatment Elapsed Days (test code = 5709) Course Intent (test Curative w/chemo code = 5686) Treatment Dates (test First Treatment Date: code = 5685) 2021-03-12 @07:48Last Treatment Date: 2021-04-02 @07:50 Reference Point ID Mediastinum (test code = 5710) Dosage Given to Date in Gy (test code = 5711) Session Dosage Given in Gy (test code = 5712) Plan ID (test code = Mediastinum 5713) Fractions Treated to Date (test code = 5715) Prescribed Dose Per Fraction in Gy (test code = 5716) Prescription Dose in cGy (test code = 5717) [facility] DAILY [id number] 16:51:51 Test Item Value Reference Range Interpretation Comments Course ID (test code = C2 5706) Course Start Date (test 2021-03-02 @13:32 code = 5707) Treatment Elapsed Days (test code = 5709) Course Intent (test Curative w/chemo code = 5686) Treatment Dates (test First Treatment Date: code = 5685) 2021-03-12 @07:48Last Treatment Date: 2021-03-30 @10:50 Reference Point ID Mediastinum (test code = 5710) Dosage Given to Date in Gy (test code = 5711) Session Dosage Given in Gy (test code = 5712) Plan ID (test code = Mediastinum 5713) Fractions Treated to Date (test code = 5715) Prescribed Dose Per Fraction in Gy (test code = 5716) Prescription Dose in cGy (test code = 5717) [facility] DAILY [id number] 17:12:14 Test Item Value Reference Range Interpretation Comments Course ID (test code = C2 5706) Course Start Date (test 2021-03-02 @13:32 code = 5707) Treatment Elapsed Days (test code = 5709) Course Intent (test Curative w/chemo code = 5686) Treatment Dates (test First Treatment Date: code = 5685) 2021-03-12 @07:48Last Treatment Date: 2021-03-29 @11:10 Reference Point ID Mediastinum (test code = 5710) Dosage Given to Date in Gy (test code = 5711) Session Dosage Given in Gy (test code = 5712) Plan ID (test code = Mediastinum 5713) Fractions Treated to Date (test code = 5715) Prescribed Dose Per Fraction in Gy (test code = 5716) Prescription Dose in cGy (test code = 5717) [facility] ONC DAILY [id number] 16:14:16 Test Item Value Reference Range Interpretation Comments Course ID (test code = C2 5706) Course Start Date (test 2021-03-02 @13:32 code = 5707) Treatment Elapsed Days (test code = 5709) Course Intent (test Curative w/chemo code = 5686) Treatment Dates (test First Treatment Date: code = 5685) 2021-03-12 @07:48Last Treatment Date: 2021-03-28 @10:12 Reference Point ID Mediastinum (test code = 5710) Dosage Given to Date in Gy (test code = 5711) Session Dosage Given in Gy (test code = 5712) Plan ID (test code = Mediastinum 5713) Fractions Treated to Date (test code = 5715) Prescribed Dose Per Fraction in Gy (test code = 5716) Prescription Dose in cGy (test code = 5717) [facility] ONC DAILY [id number] 21:51:17 Test Item Value Reference Range Interpretation Comments Course ID (test code = C2 5706) Course Start Date (test 2021-03-02 @13:32 code = 5707) Treatment Elapsed Days (test code = 5709) Course Intent (test Curative w/chemo code = 5686) Treatment Dates (test First Treatment Date: code = 5685) 2021-03-12 @07:48Last Treatment Date: 2021-03-27 @15:49 Reference Point ID Mediastinum (test code = 5710) Dosage Given to Date in Gy (test code = 5711) Session Dosage Given in Gy (test code = 5712) Plan ID (test code = Mediastinum 5713) Fractions Treated to Date (test code = 5715) Prescribed Dose Per Fraction in Gy (test code = 5716) Prescription Dose in cGy (test code = 5717) [facility] [Presence] in Respiratory specimen by JOANN with probe [id number] 02:53:28 Test Item Value Reference Range Interpretation Comments SARS-CoV-2 (COVID-19) RNA Not detected Not-Detected [Presence] in Respiratory specimen by JOANN with probe detection (test code = 43753-8) Whether patient is employed in a healthcare setting (test code = 79184-0) Whether the patient has symptoms related to condition of interest (test code = 63217-6) Patient was hospitalized because of this condition (test code = 15071-0) Whether the patient was admitted to intensive care unit (ICU) for condition of interest (test code = 46914-8) Whether patient resides in a congregate care setting (test code = 95233-5) ECG 12 [id number] 02:03:24 Test Item Value Reference Range Interpretation Comments Ventricular rate (test code = 253) Atrial rate (test code = 255) ND interval (test code = 266) QRSD interval (test code = 260) QT interval (test code = 264) QTC interval (test code = 265) P axis 1 (test code = 267) QRS axis 1 (test code = 268) T wave axis (test code = 270) EKG impression (test Sinus rhythm with code = 273) premature atrial complexes-Low voltage QRS-Borderline ECG-In automated comparison with ECG of 25-JAN-2021 11:45,-premature atrial complexes are now present- [facility] [id number] 14:12:43 Test Item Value Reference Range Interpretation Comments Course ID (test code = C2 5706) Course Start Date (test 2021-03-02 @13:32 code = 5707) Treatment Elapsed Days (test code = 5709) Course Intent (test Curative w/chemo code = 5686) Treatment Dates (test First Treatment Date: code = 5685) 2021-03-12 @07:48Last Treatment Date: 2021-03-26 @08:11 Reference Point ID Mediastinum (test code = 5710) Dosage Given to Date in Gy (test code = 5711) Session Dosage Given in Gy (test code = 5712) Plan ID (test code = Mediastinum 5713) Fractions Treated to Date (test code = 5715) Prescribed Dose Per Fraction in Gy (test code = 5716) Prescription Dose in cGy (test code = 5717) [facility] [id number] 00:18:32 Test Item Value Reference Range Interpretation Comments Case number (test code = [id number]) Cytology See link below for (non-gynecological) PDF Lab Report report (test code = 1178) Result status (test code This is Final Report = [id number]) for [id number] [facility] and Rh [id number] 16:51:00 Test Item Value Reference Range Interpretation Comments ABO grouping (test code = 883-9) A Rh type (test code = 21278-5) POS [facility] [id number] 18:41:00 Test Item Value Reference Range Interpretation Comments ABO grouping (test code = 883-9) A Rh type (test code = 35567-7) POS Antibody screen (gel) (test code = NEG 890-4) [facility] [Presence] in Respiratory specimen by JOANN with probe [id number] 17:58:19 Test Item Value Reference Range Interpretation Comments SARS-CoV-2 (COVID-19) RNA Not detected Not-Detected [Presence] in Respiratory specimen by JOANN with probe detection (test code = 50968-0) Whether patient is employed in a healthcare setting (test code = 90777-9) Whether the patient has symptoms related to condition of interest (test code = 94259-1) Patient was hospitalized because of this condition (test code = 90300-5) Whether the patient was admitted to intensive care unit (ICU) for condition of interest (test code = 93372-0) Whether patient resides in a congregate care setting (test code = 38605-6)
--- NOTE | 2022-01-21 18:21 | RAD REPORT ---
EXAM DESCRIPTION: RAD - C Spine Ap/Lat - 01/21/2022 5:57 pm CLINICAL HISTORY: Neck pain FINDINGS: Mild posterior subluxation C5 on C6 with disc space narrowing and osteophytes. No fracture or dislocation is seen Moderate spondylosis involves the cervical spine.
--- NOTE | 2022-01-21 19:51 | EDPHYS ---
Physician Documentation [facility] Name: Maite Severino Age: 61 yrs Sex: Female : 1960 Arrival Date: 01/21/2022 Time: 15:51 Bed Treatment Private MD: Marcial Santos HPI: 01/21 17:00 This 61 yrs old Female presents to ER via Ambulatory with complaints of Neck Pain, cp <24hrs Old, Back Pain. 17:00 The patient or guardian complains of pain, that is chronic. The symptoms are located at cp the posterior neck. Onset: The symptoms/episode began/occurred 6 month(s) ago. Context: The neck injury/problem resulted from from unknown cause. Historical: - Allergies: 16:13 No Known Allergies; aa5 - PMHx: 16:13 Lung Cancer; Chemotherapy; aa5 - PSHx: 16:13 Cholecystectomy; aa5 - Immunization history:: Adult Immunizations unknown. - Social history:: Smoking status: Patient denies any tobacco usage or history of. ROS: 17:05 Constitutional: Negative for body aches, chills, fever, poor PO intake. cp 17:05 Eyes: Negative for injury, pain, redness, and discharge. cp 17:05 ENT: Negative for drainage from ear(s), ear pain, sore throat, difficulty swallowing, difficulty handling secretions. 17:05 Neck: Positive for pain with movement, pain at rest, Negative for injury or acute deformity. 17:05 Cardiovascular: Negative for chest pain, palpitations. 17:05 Respiratory: Negative for cough, shortness of breath, wheezing. 17:05 Abdomen/GI: Negative for abdominal pain, nausea, vomiting, and diarrhea. 17:05 Back: Negative for pain at rest, pain with movement. 17:05 Neuro: Negative for altered mental status, headache, numbness, tingling, weakness. 17:05 All other systems are negative. Exam: 17:10 Constitutional: The patient appears in no acute distress, alert, awake, cp non-diaphoretic, non-toxic, well developed, well nourished. 17:10 Head/Face: Normocephalic, atraumatic. cp 17:10 Neck: External neck: is normal, C-spine: vertebral tenderness, is not appreciated, crepitus, is not appreciated, ROM/movement: pain, that is mild, with any movement, limited range of motion, is not appreciated, nuchal rigidity, is not appreciated. 17:10 Chest/axilla: Inspection: normal. 17:10 Cardiovascular: Rate: normal, Rhythm: regular, Pulses: Pulses are 2+ in right radial artery and left radial artery. 17:10 Respiratory: the patient does not display signs of respiratory distress, Respirations: normal, no use of accessory muscles, no retractions, labored breathing, is not present, Breath sounds: are clear throughout, no decreased breath sounds, no stridor, no wheezing. 17:10 Abdomen/GI: Exam negative for discomfort, distension, guarding, Inspection: abdomen appears normal. 17:10 Back: ROM is normal, vertebral tenderness, is not appreciated. 17:10 Neuro: Orientation: to person, place \T\ time. Mentation: is normal, Motor: moves all fours, strength is normal, Gait: is steady. Vital Signs: 16:12 BP 157 / 102; Pulse 94; Resp 20 S; Temp 98.8(TE); Pulse Ox 96% on R/A; Weight 83.91 kg aa5 (R); Height 5 ft. 0 in. (152.40 cm) (R); 16:12 Body Mass Index 36.13 (83.91 kg, 152.40 cm) aa5 MDM: 16:56 Patient medically screened. cp 17:00 Differential diagnosis: C-Spine Fracture cervical strain, Degenerative Disc Disease cp fracture, Spondylolisthesis Spondylosis subluxation. 19:50 Data reviewed: vital signs, nurses notes, radiologic studies, plain films. cp 19:50 Test interpretation: by ED physician or midlevel provider: plain radiologic studies. cp Counseling: I had a detailed discussion with the patient and/or guardian regarding: the historical points, exam findings, and any diagnostic results supporting the discharge/admit diagnosis, radiology results. Response to treatment: the patient's symptoms have mildly improved after treatment, and as a result, I will discharge patient. 01/21 16:56 Order name: XRAY C Spine Ap/lat; Complete Time: 19:32 cp Administered Medications: No medications were administered Disposition Summary: 01/21/22 19:50 Discharge Ordered Location: Home cp Problem: chronic cp Symptoms: are unchanged cp Condition: Stable cp Diagnosis - Cervicalgia cp Followup: cp - With: Private Physician - When: 2 - 3 days - Reason: Recheck today's complaints Discharge Instructions: - Discharge Summary Sheet cp - Musculoskeletal Pain cp - Neck Exercises cp - Heat Therapy cp Forms: - Medication Reconciliation Form cp - Thank You Letter cp - Antibiotic Education cp - Prescription Opioid Use cp Prescriptions: - Cyclobenzaprine 10 mg Oral Tablet - take 1 tablet by ORAL route every 8 hours As needed; 20 tablet; Refills: 0, cp Product Selection Permitted - Diclofenac Sodium 75 mg Oral tablet,delayed release (DR/EC) - take 1 tablet by ORAL route 2 times per day; 20 tablet; Refills: 0, Product cp Selection Permitted Signatures: Dispatcher [employer] Maria Luisa Marie RN RN aa5 Marcial Kim PA PA cp
--- NOTE | 2022-01-21 19:51 | ER ---
Nurse's Notes [facility] Name: Maite Severino Age: 61 yrs Sex: Female : 1960 Arrival Date: 01/21/2022 Time: 15:51 Bed Treatment Private MD: Diagnosis: Cervicalgia Presentation: 01/21 16:12 Chief complaint: Patient states: neck pain that began 6 months ago, denies injury. Pt aa5 reports hx of lung CA and states "the doctor said the cancer went to my neck". Coronavirus screen: At this time, the client does not indicate any symptoms associated with coronavirus-19. Ebola Screen: Patient denies travel to an Ebola-affected area in the 21 days before illness onset. Initial Sepsis Screen: Does the patient meet any 2 criteria? No. Patient's initial sepsis screen is negative. Does the patient have a suspected source of infection? No. Patient's initial sepsis screen is negative. Risk Assessment: Do you want to hurt yourself or someone else? Patient reports no desire to harm self or others. Onset of symptoms was 2021. 16:12 Acuity: MINH 4 aa5 16:12 Method Of Arrival: Ambulatory aa5 Historical: - Allergies: 16:13 No Known Allergies; aa5 - PMHx: 16:13 Lung Cancer; Chemotherapy; aa5 - PSHx: 16:13 Cholecystectomy; aa5 - Immunization history:: Adult Immunizations unknown. - Social history:: Smoking status: Patient denies any tobacco usage or history of. Screenin:22 Abuse screen: Denies threats or abuse. Nutritional screening: No deficits noted. bm7 Tuberculosis screening: No symptoms or risk factors identified. Fall Risk None identified. Assessment: 19:22 Reassessment: Patient and/or family updated on plan of care and expected duration. Pain bm7 level reassessed. Patient is alert, oriented x 3, equal unlabored respirations, skin warm/dry/pink. 20:02 Pain: Complains of pain in neck. Neuro: No deficits noted. Level of Consciousness is bm7 awake, alert, obeys commands, Oriented to person, place, time, situation. Vital Signs: 16:12 BP 157 / 102; Pulse 94; Resp 20 S; Temp 98.8(TE); Pulse Ox 96% on R/A; Weight 83.91 kg aa5 (R); Height 5 ft. 0 in. (152.40 cm) (R); 16:12 Body Mass Index 36.13 (83.91 kg, 152.40 cm) aa5 ED Course: 15:51 Patient arrived in ED. rg4 16:12 Arm band placed on. aa5 16:13 Triage completed. aa5 16:46 Marcial Kim PA is PHCP. cp 16:46 Marcial Somers MD is Attending Physician. cp 17:59 XRAY C Spine Ap/lat In Process Unspecified. EDMS 19:22 Bryanna Bacon, RN is Primary Nurse. bm7 19:22 Patient has correct armband on for positive identification. Call light in reach. bm7 19:22 No provider procedures requiring assistance completed. Patient did not have IV access bm7 during this emergency room visit. Administered Medications: No medications were administered Medication: 19:22 VIS not applicable for this client. bm7 Outcome: 19:50 Discharge ordered by MD. cp 20:02 Discharged to home ambulatory. bm7 20:02 Condition: good 20:02 Discharge instructions given to patient, family, Instructed on discharge instructions, follow up and referral plans. Demonstrated understanding of instructions, follow-up care, medications, Prescriptions given X 2. 20:03 Patient left the ED. bm7 Signatures: Dispatcher [employer] [facility] Maria Luisa Weaver, RN RN aa5 Marcial Kim PA PA Vivien De La Cruz rg4 Bryanna Bacon, RN RN bm7 Corrections: (The following items were deleted from the chart) 16:18 16:12 Chief complaint: Patient states: neck pain that began 6 months ago, denies aa5 injury. aa5
[2022-01-21 21:46] VITALS: TEMP 97.7; O2SAT 100
[2022-01-21 21:49] VITALS: BP 157/93
== END 2022-01-21 20:03 | disposition home or self-care (01) ==
LOC: ER 15:48
DX: M54.2 Cervicalgia (principal); Z85.118 Personal history of other malignant neoplasm of bronchus and lung
CPT/HCPCS: 72040; 99283

== ENCOUNTER 2022-10-20 11:29 | Emergency (ER) | payer OTHER ==
--- OUTSIDE RECORDS SUMMARY | 2022-10-20 11:42 | XMS REPORT | Continuity of Care Document ---
:[address] [facility] t Address [address] [place] [address] [place] [id number] Care Team Providers Name Role Phone Pj FLORES, Ant Primary Care Physician Lubna COOL, Manuel Attending Clinician Donta Almendarez MD Attending Clinician Provider, Unknown Attending Clinician Unavailable Audi COOL, Marielena Tirado Attending Clinician Colleen Mcelroy RN Attending Clinician Unavailable Magui Chase RN Attending Clinician Unavailable Stephani Marinelli RN Attending Clinician Unavailable Esther Abrams LCSW Attending Clinician Unavailable Margaret Guillermo MA Attending Clinician Unavailable Juanito OLIVA, Laura Attending Clinician Unavailable Makayla Cuevas RN Attending Clinician Unavailable Laila [facility], Cecil Attending Clinician Unavailable Mckenna RAMIREZSWBlanca Attending Clinician Unavailable Camryn OLIVA, Margaret Attending Clinician Unavailable Irma Carr RN Attending Clinician Unavailable Jossue [facility], Zara Attending Clinician Unavailable Cecilio Godoy RN Attending Clinician Unavailable Lexi COOL, Ventura Attending Clinician Luann COOL, Frances Attending Clinician MD VENTURA NAVARRETE Attending Clinician Unavailable Omega COOL, Vicky Clifton Attending Clinician Artem Urrutia RN Attending Clinician Unavailable Madhu COOL, Manuel Mccormack Attending Clinician [phone] Estella Sousa Attending Clinician Unavailable Evgeny Vásquez RN Attending Clinician Unavailable Yanni Godfrey LCSW Attending Clinician Unavailable Deanna Fierro RPH Attending Clinician Unavailable Ezra Banks RPH, Ember Attending Clinician Unavailable Ivonne Saleh MA Attending Clinician Unavailable Conner OLIVA, Petty Richards Attending Clinician Unavailable Adalid COOL, Donta Cassidy.H. Attending Clinician Hugh Damon MD Attending Clinician Lata Chowdary Attending Clinician Unavailable MD DONTA CORDOBA.HMichael Attending Clinician Unavailable Yelitza Sims MA Attending Clinician Unavailable FRANCES KONG Admitting Clinician Unavailable MD VENTURA NAVARRETE Admitting Clinician Unavailable DONTA CORDOBA Admitting Clinician Unavailable MD DONTA CORDOBA Admitting Clinician Unavailable Payers Payer Name Policy Type Policy Number Effective Date Expiration Date S ource Problems Condition Condition Condition Status Onset Resolution Last Treating Co mments Source Name Details Category Date Date Treatment Clinician Date 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 Family History Family Member Diagnosis Comments Start Date Stop Date Source Natural father History of cancer [facility] Natural father Lung cancer [facility] Natural mother COPD [facility] mother Diabetes [facility] mother Lung cancer [facility] Social History Social Habit Start Date Stop Date Quantity Comments Source Gender identity 2021-02-21 Identifies as Method ist 13:18:55 female gender [facility] (finding) Sexual orientation 2021-02-21 Heterosexual Meth odist 13:18:55 (finding) Hospital Alcohol intake 2022-07-18 2022-07-18 Ex-drinker Hindu 00:00:00 00:00:00 (finding) Hospital History of Social 2022-07-18 2022-07-[address] function 00:00:00 00:00:00 Hospital Cigarettes smoked 2022-01-16 2022-01-[address] current (pack per 00:00:00 00:00:00 Hospita l day) - Reported Cigarette 2022-01-16 2022-01-16 Hindu pack-years 00:00:00 00:00:00 Hospital Tobacco use and 2022-01-16 2022-01-16 Smokeless tobacco Me thodist exposure 00:00:00 00:00:00 non-user Hospital History of tobacco 2014-07-08 Cigarette Smoker Hindu use 00:00:00 Hospital Sex Assigned At [birth year] F Hindu 00:00:00 00:00:00 Hospital Smoking Status Start Date Stop Date Source Ex-smoker 2022-01-16 00:00:00 2022-01-16 00:00:00 [facility] Medications Ordered Filled Start Stop Current Ordering Indication Dosage Frequency Signature Comments Components Source Medication Medication Date Date Medication? Clinician (SIG) Name Name benztropine 2023-0 Yes 1mg Q.5D Take 1 mg M ethodi (COGENTIN) 2-[address] 1 MG tablet 12:42: (two) Hospi ta 08 times a l day. Patient is unsure whether she is taking this medication (verbally stated). QUEtiapine 0 Yes 300mg Q.5D Take 1 Meth matty (SEROquel) 2-[address] 300 MG 12:42: (300 mg Hospita tablet 08 total) by l mouth 2 (two) times a day. 600mg nightly, 300mg daily risperiDONE 0 Yes 3mg Q.5D Take 1 Meth matty (RisperDAL) 2-21 tablet (3 st 3 MG tablet 12:42: mg total) H ospita 08 by mouth 2 l (two) times a day. multivitami 0 Yes 1{tbl} QD Take 1 Me thodi n tablet 2-[address] 12:42: mouth Hospita 08 daily. l BIOTIN ORAL 2022-0 Yes 1{tbl} QD Take 1 Me thodi 2-[address] 12:42: mouth Hospita 08 daily. l HYDROcodone 2021-05 Yes [id number] 15mL Q6H Take 15 mL Methodi -acetaminop 0-[address] hen (HYCET) 00:00: every 6 Hos julian 2.5-108.3 00 (six) l mg/5 mL hours as solution needed for moderate pain .acute pain, chronic pain. Max Daily Amount: 60 mL benadryl/li 2021-05 Yes 10mL Q6H Swish and M ethodi docaine/maa 0-[address] lox (MAGIC 00:00: mL every 6 H ospita MOUTHWASH) 00 (six) l 1:1:1 hours as suspension needed suspension (Esophagit is). levothyroxi 2021-05- No 75ug QD Take 1 Met hodi ne 0-06 10-07 tablet (75 st (Synthroid) 00:00: 04:59 mcg total) Hospita 75 mcg 00 :00 by mouth l tablet daily. benztropine 0 Yes 1mg Q.5D Take 1 mg M ethodi (COGENTIN) 9-[address] 1 MG tablet [...] Q.5D Take 3 mg M ethodi (RisperDAL) 9-[address] 3 MG tablet 14:48: (two) Hospi ta 39 times a l day. multivitami Yes 1{tbl} QD Take 1 Me thodi [...] mcg/dose blister with device powder for inhalation fluticasone Yes INHALE ONE Methodi furoate-radha 3-15 (1) PUFF st anteroL 00:00: BY MOUTH Hospit a (Breo 00 DAILY. l Ellipta) 100-25 mcg/dose blister with device powder for inhalation levothyroxi 2022- No 50ug QD Take 1 Met hodi ne 06-01 tablet (50 st (Synthroid) 00:00: 05:59 mcg total) Hospita 50 mcg 00 :00 by mouth l tablet daily. levothyroxi 2022- No 50ug QD Take 1 Met hodi ne -01 06- tablet (50 st (Synthroid) 00:00: 05:59 mcg total) Hospita 50 mcg 00 :00 by mouth l tablet daily. potassium 2021- No [id number] 20meq Me thodi chloride [address] (K-DUR) CR 16:15: 16:51 Hospit a tablet 20 00 :00 l mEq benadryl/li 2020-05 No 5mL Q6H Swish and Methodi docaine/maa 05-[address] lox (MAGIC 00:00: 05:59 every 6 Hos julian MOUTHWASH) 00 :00 (six) l 1:1:1 hours for suspension 30 days. suspension fluconazole 2020-05 No 100mg QD Take 1 Me thodi (Diflucan) 05-[address] 100 MG 00:00: 05:59 (100 mg Hospita tablet 00 :00 total) by l mouth daily for 14 days. predniSONE 2020-05 No Take 4 Meth matty (DELTASONE) 05-27-[address] 10 mg 00:00: 05:59 (40 [...] hours as needed for nausea or vomiting. ondansetron 2020-05 Yes 8mg Q8H Take 1 Meth matty (Zofran) 8 1-11 tablet (8 st MG tablet 00:00: mg total) Hos julian 00 by mouth l every 8 (eight) hours as needed for nausea or vomiting. benadryl/li 2020-05 No 5mL Q6H Swish and Methodi docaine/maa 05-[address] lox (MAGIC 00:00: 00:00 every 6 Hos julian MOUTHWASH) 00 :00 (six) l 1:1:1 hours for suspension 30 days. suspension nystatin 2020-05 No [id number] Q.25D Take 5 mL Methodi (MYCOSTATIN 10 18 (500,000 st ) 100,000 00:00: 05:59 Units Hospit a unit/mL 00 :00 total) by l suspension mouth 4 (four) times a day for 7 days. Swish in mouth fluticasone 2020-05 No QD Inhale Met hodi -umeclidin- 05-[address] vilanter 10:12: 00:00 Hospita (TRELEGY 53 :00 l ELLIPTA) 100-62.5-25 mcg blister with device fluticasone 2020-05 No INHALE ONE Methodi furoate-radha 05-19 03-15 (1) PUFF st anteroL 00:00: 00:00 BY MOUTH Hospi ta (Breo 00 :00 DAILY. l Ellipta) 100-25 mcg/dose blister with device powder for inhalation benadryl/li 2020-05 5mL Q6H Swish and Methodi docaine/maa 05-[address] lox (MAGIC 00:00: 00:00 every 6 Hos julian MOUTHWASH) 00 :00 (six) l 1:1:1 hours for suspension 30 days. suspension ondansetron 2020-05 8mg Q8H Take 1 Met hodi (Zofran) 8 03-22 tablet (8 st MG tablet 00:00: 00:00 mg total) Ho spita 00 :00 by mouth l every 8 (eight) hours as needed for nausea or vomiting. mirtazapine 2019-05 Yes 30mg QD Take 1 Meth matty (REMERON) 0-27 tablet (30 st 30 MG 00:00: mg total) Hospita tablet 00 by mouth l nightly. mirtazapine 2019-05 Yes 30mg QD Take 30 mg Methodi (REMERON) 0-[address] 30 MG 00:00: nightly. Hospita tablet 00 l PARoxetine 2019-05 Yes QD Take by Meth matty (PAXIL) 30 0-[address] MG tablet 00:00: daily. Hospit a 00 l PARoxetine 2019-05 Yes QD Take by Meth matty (PAXIL) 30 0-[address] MG tablet 00:00: daily. Hospit a 00 l Breo 2019-05 INHALE ONE Method i Ellipta 003-19 (1) PUFF st 100-25 00:00: 00:00 BY MOUTH Hospit a mcg/dose 00 :00 DAILY. l blister with device powder for inhalation divalproex 2006-05 Yes Take by Meth matty (DEPAKOTE) 1-[address] 500 MG 24 00:00: Hospita hr tablet 00 l divalproex 2006- Yes Take by Meth matty (DEPAKOTE) 1-[address] 500 MG 24 00:00: Hospita hr tablet 00 l Vital Signs Vital Name Observation Time Observation Value Comments Source Systolic blood 2022-07-18 19:30:00 143 mm[Hg] [facility] Hospital pressure Diastolic blood 2022-07-18 19:30:00 63 mm[facility]Hg[facility] Heart rate 2022-07-18 19:30:00 103 /min [facility] Body temperature 2022-07-18 19:30:00 36.72 Shira [facility] Respiratory rate 2022-07-18 19:30:00 16 /min [facility] Body height 2022-07-18 19:30:00 152.4 cm [facility] Body weight 2022-07-18 19:30:00 82.555 kg [facility] BMI 2022-07-18 19:30:00 35.54 kg/m2 [facility] Oxygen saturation in 2022-07-18 19:30:00 94 /min [facility] Arterial blood by Pulse oximetry Systolic blood 2022-01-16 19:44:00 124 mm[Hg] [facility] Hospital pressure Diastolic blood 2022-01-16 19:44:00 80 mm[Hg] [facility] Hospital pressure Heart rate 2022-01-16 19:44:00 86 /min [facility] Body temperature 2022-01-16 19:44:00 36.83 Shira [facility] Respiratory rate 2022-01-16 19:44:00 20 /min [facility] Body height 2022-01-16 19:44:00 152.4 cm [facility] Body weight 2022-01-16 19:44:00 84.55 kg [facility] BMI 2022-01-16 19:44:00 36.40 kg/m2 [facility] Oxygen saturation in 2022-01-16 19:44:00 97 /min [facility] Arterial blood by Pulse oximetry Procedures Procedure Date / Time Performing Clinician Source Performed RAD ONC DAILY TREATMENT 2022-07-26 15:22:25 Provider, Unknown [facility] RAD ONC DAILY TREATMENT 2022-07-24 18:21:01 Provider, Unknown [facility] RAD ONC DAILY TREATMENT 2022-07-22 18:26:14 Provider, Unknown [facility] RAD ONC DAILY TREATMENT 2022-07-18 19:49:09 Provider, Unknown [facility] MRI ABDOMEN W WO CONTRAST 2022-07-16 22:30:00 Marielena Ramsay [facility] RAD ONC DAILY TREATMENT 2022-07-16 20:40:34 Provider, Unknown [facility] MRI CERVICAL SPINE W WO 2022-06-17 17:20:00 Lubna [facility] CONTRAST MRI BRAIN W WO CONTRAST 2022-06-17 17:15:00 Lubna [facility] PET CT SKULL BASE TO MID 2022-05-28 18:51:40 Manuel Martinez [facility] THIGH CBC WITH PLATELET AND 2022-05-28 18:04:00 Manuel Martinez [facility] DIFFERENTIAL COMPREHENSIVE METABOLIC 2022-05-28 18:04:00 Manuel Martinez [facility] PANEL MAGNESIUM LEVEL 2022-05-28 18:04:00 Manuel Martinez Ho spital THYROID STIMULATING 2022-05-28 18:04:00 Manuel Martinez [facility] HORMONE T3 2022-05-28 18:04:00 Manuel Martinez Ho spital T4, FREE 2022-05-28 18:04:00 Manuel Martinez spital ESTIMATED GFR 2022-05-28 18:04:00 Manuel Martinez Ho spital MANUAL DIFFERENTIAL 2022-05-28 18:04:00 Manuel Martinez [facility] POC GLUCOSE 2022-05-28 16:26:00 Manuel Martinez Ho spital CBC WITH PLATELET AND 2022-05-01 17:53:00 Manuel Martinez [facility] DIFFERENTIAL COMPREHENSIVE METABOLIC 2022-05-01 17:53:00 Manuel Martinez [facility] PANEL MAGNESIUM LEVEL 2022-05-01 17:53:00 Manuel Martinez Ho spital THYROID STIMULATING 2022-05-01 17:53:00 Manuel Martinez [facility] HORMONE T3 2022-05-01 17:53:00 Manuel Martinez Ho spital T4, FREE 2022-05-01 17:53:00 Manuel Martinez Ho spital ESTIMATED GFR 2022-05-01 17:53:00 Manuel Martinez [facility] spital CBC WITH PLATELET AND 2022-04-02 17:48:00 Manuel Martinez [facility] DIFFERENTIAL COMPREHENSIVE METABOLIC 2022-04-02 17:48:00 Lubna [facility] PANEL MAGNESIUM LEVEL 2022-04-02 17:48:00 Manuel Martinez [facility] spital THYROID STIMULATING 2022-04-02 17:48:00 Lubna [facility] HORMONE T3 2022-04-02 17:48:00 Manuel Martinez [facility] spital T4, FREE 2022-04-02 17:48:00 Manuel Martinez [facility] spital ESTIMATED GFR 2022-04-02 17:48:00 Manuel Martinez [facility] spital MANUAL DIFFERENTIAL 2022-04-02 17:48:00 Lubna [facility] RAD ONC COURSE SUMMARY 2022-03-20 14:20:15 Provider, Unknown [facility] RAD ONC DAILY TREATMENT 2022-03-18 20:08:59 Provider, Unknown [facility] RAD ONC DAILY TREATMENT 2022-03-15 17:27:33 Provider, Unknown [facility] RAD ONC DAILY TREATMENT 2022-03-14 18:20:49 Provider, Unknown [facility] RAD ONC DAILY TREATMENT 2022-03-13 18:51:26 Provider, Unknown [facility] RAD ONC DAILY TREATMENT 2022-03-12 18:43:10 Provider, Unknown [facility] RAD ONC DAILY TREATMENT 2022-03-11 20:31:22 Provider, Unknown [facility] RAD ONC DAILY TREATMENT 2022-03-08 17:08:15 Provider, Unknown [facility] MRI BRAIN W WO CONTRAST 2022-03-08 16:08:[address] [facility] RAD ONC DAILY TREATMENT 2022-03-07 20:03:00 Provider, Unknown [facility] CBC WITH PLATELET AND 2022-03-06 19:42:00 Manuel Martinez [facility] DIFFERENTIAL COMPREHENSIVE METABOLIC 2022-03-06 19:42:00 Manuel Martinez [facility] PANEL MAGNESIUM LEVEL 2022-03-06 19:42:00 Manuel Martinez [facility] spital THYROID STIMULATING 2022-03-06 19:42:00 Manuel Martinez [facility] HORMONE T3 2022-03-06 19:42:00 Manuel Martinez spital T4, FREE 2022-03-06 19:42:00 Manuel Martinez spital ESTIMATED GFR 2022-03-06 19:42:00 Manuel Martinez spital MANUAL DIFFERENTIAL 2022-03-06 19:42:00 Manuel Martinez [facility] RAD ONC DAILY TREATMENT 2022-03-06 18:57:31 Provider, Unknown [facility] RAD ONC DAILY TREATMENT 2022-03-05 19:29:30 Provider, Unknown [facility] RAD ONC DAILY TREATMENT 2022-03-04 18:24:12 Provider, Unknown [facility] RAD ONC DAILY TREATMENT 2022-03-01 19:46:04 Provider, Unknown [facility] RAD ONC DAILY TREATMENT 2022-02-28 20:13:22 Provider, Unknown [facility] RAD ONC DAILY TREATMENT 2022-02-27 20:28:42 Provider, Unknown [facility] RAD ONC DAILY TREATMENT 2022-02-26 20:36:08 Provider, Unknown [facility] RAD ONC DAILY TREATMENT 2022-02-25 19:36:27 Provider, Unknown [facility] RAD ONC DAILY TREATMENT 2022-02-22 20:26:13 Provider, Unknown [facility] RAD ONC DAILY TREATMENT 2022-02-21 20:31:32 Provider, Unknown [facility] RAD ONC DAILY TREATMENT 2022-02-20 20:27:20 Provider, Unknown [facility] RAD ONC DAILY TREATMENT 2022-02-19 22:25:50 Provider, Unknown [facility] RAD ONC DAILY TREATMENT 2022-02-18 20:27:27 Provider, Unknown [facility] RAD ONC DAILY TREATMENT 2022-02-15 20:09:22 Provider, Unknown [facility] RAD ONC DAILY TREATMENT 2022-02-14 20:31:50 Provider, Unknown [facility] RAD ONC DAILY TREATMENT 2022-02-13 18:38:55 Provider, Unknown [facility] RAD ONC DAILY TREATMENT 2022-02-12 20:16:34 Provider, Unknown [facility] RAD ONC DAILY TREATMENT 2022-02-11 18:34:11 Provider, Unknown [facility] RAD ONC DAILY TREATMENT 2022-02-08 20:19:58 Provider, Unknown [facility] RAD ONC DAILY TREATMENT 2022-02-07 20:02:52 Provider, Unknown [facility] RAD ONC DAILY TREATMENT 2022-02-06 21:37:52 Provider, Unknown [facility] RAD ONC DAILY TREATMENT 2022-02-05 21:43:41 Provider, Unknown [facility] CBC WITH PLATELET AND 2022-02-05 17:16:00 Manuel Martinez [facility] DIFFERENTIAL COMPREHENSIVE METABOLIC 2022-02-05 17:16:00 Manuel Martinez [facility] PANEL MAGNESIUM LEVEL 2022-02-05 17:16:00 Manuel Martinez Ho spital THYROID STIMULATING 2022-02-05 17:16:00 Manuel Martinez [facility] HORMONE T3 2022-02-05 17:16:00 Manuel Martinez Ho spital T4, FREE 2022-02-05 17:16:00 Manuel Martinez Ho spital ESTIMATED GFR 2022-02-05 17:16:00 Manuel Martinez Ho spital MANUAL DIFFERENTIAL 2022-02-05 17:16:00 Manuel Martinez [facility] RAD ONC COURSE SUMMARY 2022-01-23 16:59:07 Provider, Unknown [facility] PET CT SKULL BASE TO MID 2022-01-08 14:36:07 Manuel Martinez [facility] THIGH HC COMPLETE BLD COUNT 2022-01-08 14:36:00 Manuel Martinez [facility] W/AUTO DIFF COMPREHENSIVE METABOLIC 2022-01-08 14:36:00 Manuel Martinez [facility] PANEL MAGNESIUM LEVEL 2022-01-08 14:36:00 Manuel Martinez Ho spital THYROID STIMULATING 2022-01-08 14:36:00 Manuel Martinez [facility] HORMONE T3, FREE 2022-01-08 14:36:00 Manuel Martinez Ho spital T4, FREE 2022-01-08 14:36:00 Manuel Martinez Ho spital ESTIMATED GFR 2022-01-08 14:36:00 Manuel Martinezist Ho spital T3 2022-01-08 14:36:00 Manuel Martinez Ho spital ESTIMATED GFR 2022-01-08 14:20:00 Manuel Martinez spital POC GLUCOSE 2022-01-08 12:53:00 Manuel Martinez spital HC COMPLETE BLD COUNT 2021-12-11 14:36:00 Manuel Martinez [facility] W/AUTO DIFF COMPREHENSIVE METABOLIC 2021-12-11 14:36:00 Manuel Martinez [facility] PANEL MAGNESIUM LEVEL 2021-12-11 14:36:00 Manuel Martinez Ho spital THYROID STIMULATING 2021-12-11 14:36:00 Manuel Martinez [facility] HORMONE T3 2021-12-11 14:36:00 Manuel Martinez spital T4, FREE 2021-12-11 14:36:00 Manuel Martinez spital ESTIMATED GFR 2021-12-11 14:36:00 Manuel Martinez Ho spital CT CHEST W CONTRAST 2021-11-13 18:58:59 Manuel Martinez [facility] CBC WITH PLATELET AND 2021-11-13 16:36:00 Manuel Martinez [facility] DIFFERENTIAL CBC WITH PLATELET AND 2021-11-13 16:36:00 Manuel Martinez [facility] DIFFERENTIAL COMPREHENSIVE METABOLIC 2021-11-13 16:36:00 Manuel Martinez [facility] PANEL MAGNESIUM LEVEL 2021-11-13 16:36:00 Manuel Martinez Ho spital THYROID STIMULATING 2021-11-13 16:36:00 Manuel Martinez [facility] HORMONE T3 2021-11-13 16:36:00 Manuel Martinez spital T4, FREE 2021-11-13 16:36:00 Manuel Martinez spital ESTIMATED GFR 2021-11-13 16:36:00 Manuel Martinez spital MANUAL DIFFERENTIAL 2021-11-13 16:36:00 Manuel Martinez [facility] CBC WITH PLATELET AND 2021-10-16 14:26:00 Manuel Martinez [facility] DIFFERENTIAL COMPREHENSIVE METABOLIC 2021-10-16 14:26:00 Manuel Martinez [facility] PANEL MAGNESIUM LEVEL 2021-10-16 14:26:00 Manuel Martinez Ho spital THYROID STIMULATING 2021-10-16 14:26:00 Manuel Martinez [facility] HORMONE T3 2021-10-16 14:26:00 Manuel Martinez Ho spital T4, FREE 2021-10-16 14:26:00 Manuel Martinez Ho spital ESTIMATED GFR 2021-10-16 14:26:00 Manuel Martinez [facility] Ho spital MANUAL DIFFERENTIAL 2021-10-16 14:26:00 Manuel Martinez [facility] CBC WITH PLATELET AND 2021-09-18 14:10:00 Manuel Martinez [facility] DIFFERENTIAL COMPREHENSIVE METABOLIC 2021-09-18 14:10:00 Manuel Martinez [facility] PANEL MAGNESIUM LEVEL 2021-09-18 14:10:00 Manuel Martinezist Ho spital THYROID STIMULATING 2021-09-18 14:10:00 Lubna [facility] HORMONE T3 2021-09-18 14:10:00 Manuel Martinez Ho spital T4, FREE 2021-09-18 14:10:00 Manuel Martinez Ho spital ESTIMATED GFR 2021-09-18 14:10:00 Manuel Martinez Ho spital MANUAL DIFFERENTIAL 2021-09-18 14:10:00 Manuel Martinez [facility] HC COMPLETE BLD COUNT 2021-08-21 14:01:00 Manuel Martinez [facility] W/AUTO DIFF COMPREHENSIVE METABOLIC 2021-08-21 14:01:00 Manuel Martinez [facility] PANEL MAGNESIUM LEVEL 2021-08-21 14:01:00 Manuel Martinez Ho spital THYROID STIMULATING 2021-08-21 14:01:00 Manuel Martinez [facility] HORMONE T3 2021-08-21 14:01:00 Manuel Martinez Ho spital T4, FREE 2021-08-21 14:01:00 Manuel Martinez Ho spital ESTIMATED GFR 2021-08-21 14:01:00 Manuel Martinez Ho spital MRI BRAIN W WO CONTRAST 2021-08-17 17:05:13 Manuel Martinez [facility] PET CT SKULL BASE TO MID 2021-08-17 16:18:00 Manuel Martinez [facility] THIGH POC GLUCOSE 2021-08-17 14:39:00 Manuel Martinez Ho spital HC COMPLETE BLD COUNT 2021-07-24 15:06:00 Manuel Martinez [facility] W/AUTO DIFF COMPREHENSIVE METABOLIC 2021-07-24 15:06:00 Manuel Martinez [facility] PANEL MAGNESIUM LEVEL 2021-07-24 15:06:00 Manuel Martinezist Ho spital THYROID STIMULATING 2021-07-24 15:06:00 Manuel Martinez [facility] HORMONE T3 2021-07-24 15:06:00 Manuel Martinezist [facility] T4, FREE 2021-07-24 15:06:00 [facility] ESTIMATED GFR 2021-07-24 15:06:00 Manuel [facility] HC COMPLETE BLD COUNT 2021-06-26 15:57:00 Manuel Martinez [facility] W/AUTO DIFF COMPREHENSIVE METABOLIC 2021-06-26 15:57:00 Manuel Martinez [facility] PANEL MAGNESIUM LEVEL 2021-06-26 15:57:00 Manuel Martinezist [facility] THYROID STIMULATING 2021-06-26 15:57:00 Manuel Martinez [facility] HORMONE T3 2021-06-26 15:57:00 Manuel Martinezist [facility] T4, FREE 2021-06-26 15:57:00 Manuel Martinezist [facility] ESTIMATED GFR 2021-06-26 15:57:00 Manuel Martinezist [facility] CBC WITH PLATELET AND 2021-05-29 13:57:00 Manuel Martinez [facility] DIFFERENTIAL COMPREHENSIVE METABOLIC 2021-05-29 13:57:00 Manuel Martinez [facility] PANEL MAGNESIUM LEVEL 2021-05-29 13:57:00 Manuel Martinez [facility]ital THYROID STIMULATING 2021-05-29 13:57:00 Manuel Martinez [facility] HORMONE T3 2021-05-29 13:57:00 Manuel Martinezist [facility] T4, FREE 2021-05-29 13:57:00 Manuel Martinezist [facility] ESTIMATED GFR 2021-05-29 13:57:00 Manuel [facility]ist [facility] MANUAL DIFFERENTIAL 2021-05-29 13:57:00 Manuel Martinez [facility] CT CHEST W CONTRAST 2021-05-22 17:14:16 Manuel Martinez [facility] RAD ONC COURSE SUMMARY 2021-04-27 19:56:56 Provider, Unknown [facility] HC COMPLETE BLD COUNT 2021-04-24 14:32:00 Manuel Martinez [facility] W/AUTO DIFF COMPREHENSIVE METABOLIC 2021-04-24 14:32:00 [facility] PANEL MAGNESIUM LEVEL 2021-04-24 14:32:00 Manuel [facility]ist [facility] ESTIMATED GFR 2021-04-24 14:32:00 Manuel Martinez [facility] RAD ONC DAILY TREATMENT 2021-04-24 13:24:35 Provider, Unknown [facility] RAD ONC DAILY TREATMENT 2021-04-23 16:45:25 Provider, Unknown [facility] RAD ONC DAILY TREATMENT 2021-04-20 16:45:46 Provider, Unknown [facility] RAD ONC DAILY TREATMENT 2021-04-19 17:14:34 Provider, Unknown [facility] RAD ONC DAILY TREATMENT 2021-04-18 17:29:35 Provider, Unknown [facility] HC COMPLETE BLD COUNT 2021-04-17 14:02:00 Manuel Martinez [facility] W/AUTO DIFF COMPREHENSIVE METABOLIC 2021-04-17 14:02:00 [facility] PANEL ESTIMATED GFR 2021-04-17 14:02:00 [facility] MAGNESI[facility] LEV[facility] 2021-04-17 14:02:00 Manuel Martinez [facility] RAD ONC DAILY TREATMENT 2021-04-17 13:11:43 Provider, Unknown [facility] RAD ONC DAILY TREATMENT 2021-04-16 16:51:36 Provider, Unknown [facility] RAD ONC DAILY TREATMENT 2021-04-13 17:37:41 Provider, Unknown [facility] RAD ONC DAILY TREATMENT 2021-04-12 17:27:38 Provider, Unknown [facility] RAD ONC DAILY TREATMENT 2021-04-11 17:41:13 Provider, Unknown [facility] HC COMPLETE BLD COUNT 2021-04-10 17:09:00 Manuel Martinez [facility] W/AUTO DIFF COMPREHENSIVE METABOLIC 2021-04-10 17:09:00 [facility] PANEL MAGNESIUM LEVEL 2021-04-10 17:09:00 Manuel Martinez Ho spital ESTIMATED GFR 2021-04-10 17:09:00 Manuel Martinez [facility] RAD ONC DAILY TREATMENT 2021-04-10 16:18:41 Provider, Unknown [facility] RAD ONC DAILY TREATMENT 2021-04-09 17:12:42 Provider, Unknown [facility] RAD ONC DAILY TREATMENT 2021-04-04 16:46:28 Provider, Unknown [facility] RAD ONC DAILY TREATMENT 2021-04-03 16:52:47 Provider, Unknown [facility] CBC WITH PLATELET AND 2021-04-02 14:42:00 Manuel Martinez [facility] DIFFERENTIAL COMPREHENSIVE METABOLIC 2021-04-02 14:42:00 Manuel Martinez [facility] PANEL MAGNESIUM LEVEL 2021-04-02 14:42:00 Manuel Martinez [facility] spital ESTIMATED GFR 2021-04-02 14:42:00 [facility] MANUAL DIFFERENTIAL 2021-04-02 14:42:00 Manuel Martinez [facility] RAD ONC DAILY TREATMENT 2021-04-02 13:51:59 Provider, Unknown [facility] RAD ONC DAILY TREATMENT 2021-03-30 16:51:51 Provider, Unknown [facility] RAD ONC DAILY TREATMENT 2021-03-29 17:12:14 Provider, Unknown [facility] RAD ONC DAILY TREATMENT 2021-03-28 16:14:16 Provider, Unknown [facility] RAD ONC DAILY TREATMENT 2021-03-27 21:51:17 Provider, Unknown [facility] COVID-19 ANTI-SPIKE IGG 2021-03-27 10:00[facility]-19 SEROLOGY PATIENT 2021-03-27 10:00:00 Ventura Navarrete [facility]ILL[facility] HC COMPLETE BLD COUNT 2021-03-27 09:31:00 [facility] W[facility]AUTO DIFF BASIC METABOLIC PANEL 2021-03-27 09:31:00 [facility] MAGNESIUM LEVEL 2021-03-27 09:31:00 Lexi [facility] ospital PHOSPHORUS LEVEL 2021-03-27 [facility]:31[facility] 2021-03-27 09:31:00 [facility] URIC ACID LEVEL 2021-03-27 09:31:00 Ventura Navarrete H ospital LDH 2021-03-27 09:31:00 Ventura Navarrete H ospital ESTIMATED GFR 2021-03-27 09:31:00 Ventura Navarrete H ospital CT CHEST WO CONTRAST 2021-03-27 03:19:25 Lexi [facility] COVID-19 QUALITATIVE 2021-03-27 02:00:00 Manuel Martinez [facility] RT-PCR ECG 12-LEAD 2021-03-27 01:39:50 Ventura Navarrete H ospital CBC WITH PLATELET AND 2021-03-26 16:01:00 Manuel Martinez [facility] DIFFERENTIAL COMPREHENSIVE METABOLIC 2021-03-26 16:01:00 Manuel Martinez [facility] PANEL MAGNESIUM LEVEL 2021-03-26 16:01:00 Manuel Martinez Ho spital ESTIMATED GFR 2021-03-26 16:01:00 Manuel Martinez spital MANUAL DIFFERENTIAL 2021-03-26 16:01:00 Manuel Martinez [facility] RAD ONC DAILY TREATMENT 2021-03-26 14:12:43 Provider, Unknown [facility] HC COMPLETE BLD COUNT 2021-03-19 14:23:00 Manuel Martinez [facility] W/AUTO DIFF COMPREHENSIVE METABOLIC 2021-03-19 14:23:00 Manuel Martinez [facility] PANEL MAGNESIUM LEVEL 2021-03-19 14:23:00 Manuel Martinez Ho spital ESTIMATED GFR 2021-03-19 14:23:00 Manuel Martinez [facility] spital HC COMPLETE BLD COUNT 2021-03-12 16:45:00 Manuel Martinez [facility] W/AUTO DIFF COMPREHENSIVE METABOLIC 2021-03-12 16:45:00 Manuel Martinez [facility] PANEL MAGNESIUM LEVEL 2021-03-12 16:45:00 Manuel Martinez Ho spital ESTIMATED GFR 2021-03-12 16:45:00 Manuel Martinez [facility] sp[facility] HC COMPLETE BLD COUNT 2021-03-05 13:00:00 Manuel Martinez [facility] W/AUTO DIFF COMPREHENSIVE METABOLIC 2021-03-05 13:00:00 Martinez, [facility] PANEL MAGNESIUM LEVEL 2021-03-05 13:00:00 Manuel Martinez [facility] ESTIMATED GFR 2021-03-05 13:00:00 Manuel Martinez [facility] spital MRI BRAIN W WO CONTRAST 2021-02-22 13:35:00 Manuel Martinez [facility] CT CHEST W CONTRAST 2021-02-07 16:11:00 Lubna [facility] ABDOMEN W CONTRAST PELVIS W CONTRAST XR CHEST 1 VW PORTABLE 2021-01-29 20:03:00 Josue Marta [facility] CYTOLOGY 2021-01-29 19:18:00 Donta Crodoba [facility] (NON-GYNECOLOGICAL) REQUEST CYTOLOGY 2021-01-29 19:01:00 Donta Cordoba [facility] (NON-GYNECOLOGICAL) REQUEST UT AN ELECTIVE 2021-01-29 18:34:31 Hugh Damon [facility] ospital ENDOTRACHEAL AIRWAY BRONCHOSCOPY 2021-01-29 18:05:00 Donta Cordoba [facility] US, ENDOBRONCHIAL 2021-01-29 18:05:00 Donta Cordoba [facility] ABO AND RH CONFIRMATION 2021-01-29 15:18:[address] [facility] BY PROTOCOL COVID-19 QUALITATIVE 2021-01-25 16:57:00 Donta Cordoba [facility] RT-PCR TYPE AND SCREEN 2021-01-25 16:57:00 Donta Cordoba [facility] PROTHROMBIN TIME WITH INR 2021-01-25 16:57:00 Donta Cordoba [facility] PARTIAL THROMBOPLASTIN 2021-01-25 16:57:00 Donta Cordoba [facility] TIME (PTT) COMPREHENSIVE METABOLIC 2021-01-25 16:57:[address] [facility] PANEL HC COMPLETE BLD COUNT 2021-01-25 16:57:00 Donta Cordoba [facility] W/AUTO DIFF ESTIMATED GFR 2021-01-25 16:57:00 Donta Cordoba [facility] ECG 12-LEAD 2021-01-25 16:45:56 [facility] Care Planned Activity Planned Date Details Comments Source Future Scheduled 2022-10-17 Screening for [facility] Test 15:03:07 malignant neoplasm of colon (procedure) [code = 130173627] Future Scheduled 2022-10-17 Screening for [facility] Test 15:03:07 malignant neoplasm of colon (procedure) [code = 784059007] Future Scheduled 2022-10-17 Screening for [facility] Test 15:03:07 malignant neoplasm of colon (procedure) [code = 848056182] Future Scheduled 2022-10-17 Pneumococcal Vaccine: [facility] Test 15:03:07 Pediatrics (0 to 5 Years) and At-Risk Patients (6 to 64 Years) (1 - PCV) [code = Pneumococcal Vaccine: Pediatrics (0 to 5 Years) and At-Risk Patients (6 to 64 Years) (1 - PCV)] Future Scheduled 2022-10-17 SHINGLES VACCINES (1 Met [facility] Test 15:03:07 of 2) [code = SHINGLES VACCINES (1 of 2)] Future Scheduled 2022-10-17 Screening for [facility] Test 15:03:07 malignant neoplasm of cervix (procedure) [code = 432839754] Future Scheduled 2022-10-17 BREAST CANCER [facility] Test 15:03:07 SCREENING [code = BREAST CANCER SCREENING] Future Scheduled 2022-10-17 Screening for [facility] Test 15:03:07 malignant neoplasm of colon (procedure) [code = 050214422] Future Scheduled 2022-10-17 Screening for [facility] Test 15:03:07 malignant neoplasm of colon (procedure) [code = 324731602] Future Scheduled 2022-10-17 COVID-19 VACCINE (3 - [facility] Test 15:03:07 Pfizer risk series) [code = COVID-19 VACCINE (3 - Pfizer risk series)] Future Scheduled 2022-10-17 HEPATITIS B VACCINES Met [facility] Test 15:03:07 (1 of 3 - Risk 3-dose series) [code = HEPATITIS B VACCINES (1 of 3 - Risk 3-dose series)] Future Scheduled 2022-10-17 INFLUENZA VACCINE Method [facility] Test 15:03:07 [code = INFLUENZA VACCINE] Future Scheduled 2022-01-21 HEPATITIS B VACCINES Met [facility] Test 11:09:47 (1 of 3 - 3-dose series) [code = HEPATITIS B VACCINES (1 of 3 - 3-dose series)] Future Scheduled 2022-01-21 Pneumococcal Vaccine: [facility] Test 11:09:47 Pediatrics (0 to 5 Years) and At-Risk Patients (6 to 64 Years) (1 - PCV) [code = Pneumococcal Vaccine: Pediatrics (0 to 5 Years) and At-Risk Patients (6 to 64 Years) (1 - PCV)] Future Scheduled 2022-01-21 SHINGLES VACCINES (1 Met [facility] Test 11:09:47 of 2) [code = SHINGLES VACCINES (1 of 2)] Future Scheduled 2022-01-21 Screening for [facility] Test 11:09:47 malignant neoplasm of cervix (procedure) [code = 152342269] Future Scheduled 2022-01-21 BREAST CANCER [facility] Test 11:09:47 SCREENING [code = BREAST CANCER SCREENING] Future Scheduled 2022-01-[address] [facility] Test 11:09:47 [code = COLONOSCOPY SCREENING] Future Scheduled 2022-01-21 COVID-19 VACCINE (3 - [facility] Test 11:09:47 Pfizer risk series) [code = COVID-19 VACCINE (3 - Pfizer risk series)] Future Scheduled 2022-01-21 INFLUENZA VACCINE Method [facility] Test 11:09:47 [code = INFLUENZA VACCINE] Encounters Start End Encounter Admission Attending Care Care Encounter Source Date/Time Date/Time Type Type Clinicians Facility Department ID 2022-05-01 2022-08-13 Office Manuel Martinez 1..840.1 [id number] Methodi 11:40:00 13:58:[address] 3.430.2.7 Hospit a .3.289995 l .8 2022-07-26 2022-07-26 Hospital Tanesha 1.840.1 [id number] Methodi 10:00:00 10:22:24 Encounter Donta RamiresMichael 15122.1.[address] 3.430.2.7 Hospit a .3.789987 l .8 2022-07-26 2022-07-26 Telephone Manuel Martinez 1..840.1 [id number] Methodi 00:00:00 00:00:[address] 3.430.2.7 Hospit a .3.196539 l .8 2022-07-26 2022-07-26 Orders Provider, 1.2.840.1 [id number] [id number] Methodi 00:00:00 00:00:00 Only Unknown 59208.1.[address] 3.430.2.7 Hospit a .3.120577 l .8 2022-07-26 2022-07-26 Outpatient [facility] [id number] [address] [place] [address] 00:00:00 00:00:00 EDWARD [address] 2022-07-24 2022-07-24 [facility], 1.2.840.1 [id number] Methodi 12:49:05 13:21:00 Encounter Edyary Neal 02289.1.[address] 3.430.2.7 Hospit a .3.490310 l .8 2022-07-24 2022-07-24 Orders Provider, 1.2.840.1 [id number] 2100 [id number] Methodi 00:00:00 00:00:00 Only Unknown 25371.1.[address] 3.430.2.7 Hospit a .3.870173 l .8 2022-07-24 2022-07-24 Outpatient [facility] [id number] [address] [place] [address] 00:00:00 00:00:00 EDWARD [address] 2022-07-22 2022-07-22 [facility], 1.2.840.1 [id number] Methodi 13:00:00 13:26:12 Encounter Edyary B. 79999.1.[address] 3.430.2.7 Hospit a .3.951615 l .8 2022-07-22 2022-07-22 Orders Provider, 1.2.840.1 [id number] 2100 [id number] Methodi 00:00:00 00:00:00 Only Unknown 43054.1.[address] 3.430.2.7 Hospit a .3.577938 l .8 2022-07-22 2022-07-22 Outpatient [facility] [id number] [address] [place] 00:00:00 00:00:[address] DONTA [address] 2022-07-18 2022-07-19 [facility] Audi Marielena Ram. 1.2.840.1 [id number] Methodi 13:30:00 08:04:51 Encounter Colleen Mcelroy 14182.1.[address] 3.430.2.7 Hospit a .3.630684 l .8 2022-07-19 2022-07-19 Orders Manuel Martinez 1.2.840.1 [id number] Methodi 00:00:00 00:00:[address] 3.430.2.7 Hospit a .3.929215 l .8 2022-07-19 2022-07-19 Telephone Salvatore 1.2.840.1 [id number] Methodi 00:00:00 00:00:00 Magui Ram 63823.1.[address] 3.430.2.7 Hospit a .3.615098 l .8 2022-07-18 2022-07-19 Outpatient [facility] [id number] [address] [place] 00:00:00 00:00:00 [address]NA [address] 2022-07-18 2022-07-18 [facility], 1.2.840.1 [id number] Methodi 13:15:00 13:49:09 Encounter Marielena YoMichael 45577.1.[address] 3.430.2.7 Hospit a .3.786075 l .8 2022-07-18 2022-07-18 Travel 1.2.840.1 1.2.124.335 8765 [id number] Methodi 00:00:00 00:00:[address] 3.430.2.7 0.2.7.3.698 Ho spita .3.268543 084.8 l .8 2022-07-18 2022-07-18 Orders Provider, 1.2.840.1 [id number] [id number] Methodi 00:00:00 00:00:00 Only Unknown 93388.1.[address] 3.430.2.7 Hospit a .3.430504 l .8 2022-07-18 2022-07-18 Outpatient [facility] [id number] [address] [place] [address] 00:00:00 00:00:00 MAR[address]LENA [address] 2022-07-16 2022-07-16 [facility], 1.2.840.1 [id number] Methodi 15:17:21 23:59:00 Encounter Marielena Tirado 30753.1.[address] 3.430.2.7 Hospit a .3.652450 l .8 2022-07-16 2022-07-16 [facility], 1.2.840.1 [id number] [id number] Methodi 13:00:00 14:40:33 Encounter Marielena Tirado 33795.1.[address] 3.430.2.7 Hospit a .3.491877 l .8 2022-07-16 2022-07-16 Travel 1.2.840.1 1.2.258.514 [id number] [id number] Methodi 00:00:00 00:00:[address] 3.430.2.7 0.2.7.3.698 spita .3.722370 084.8 l .8 2022-07-16 2022-07-16 Orders Provider, 1.2.840.1 [id number] 2100 [id number] Methodi 00:00:00 00:00:00 Only Unknown 53048.1.[address] 3.430.2.7 Hospit a .3.671011 l .8 2022-07-16 2022-07-16 Outpatient [facility] [id number] [address] [place] 00:00:00 00:00:00 MAR[address]LENA [address] 2022-07-16 2022-07-16 Outpatient [facility] [id number] [address] [place] [address] 00:00:00 00:00:[address] 2022-07-11 2022-07-11 Travel 1.2.840.1 1.2.874.057 1107 [id number] Methodi 00:00:00 00:00:[address] 3.430.2.7 0.2.7.3.698 Ho spita .3.833150 084.8 l .8 2022-07-10 2022-07-10 [facility], 1.2.840.1 [id number] [id number] Methodi 07:00:00 10:07:00 Encounter Marielena YoMichael 69327.1.[address] 3.430.2.7 Hospit a .3.157382 l .8 2022-07-10 2022-07-10 Outpatient [facility] [id number] [address] [place] [address] 00:00:00 00:00:00 MARIELENA [address] 2022-07-02 2022-07-02 [facility] 1.2.840.1 [id number] Methodi 12:23:19 16:23:30 Encounter Marinelli Stephani 27042.1.[address] 3.430.2.7 Hospit a .3.125526 l .8 2022-07-02 2022-07-02 [facility], 1.2.840.1 [id number] Methodi 14:00:00 16:02:09 Encounter Marielena YoMichael 08708.1.[address] 3.430.2.7 Hospit a .3.195966 l .8 2022-07-02 2022-07-02 Outpatient [facility] [id number] [address] [place] 00:00:00 00:00:00 MARIELENA [address] 2022-07-02 2022-07-02 Social Abrams, 1.2.840.1 [id number] Methodi 00:00:00 00:00:00 Work Esther 10932.1.[address] 3.430.2.7 Hospit a .3.152646 l .8 2022-07-02 2022-07-02 Outpatient [facility] [id number] [address] [place] 00:00:00 00:00:00 [address]NA [address] 2022-06-18 2022-06-19 [facility] [id number] Methodi 14:01:37 09:27:19 Encounter Marielena RamMichael 55640.1.[address] 3.430.2.7 Hospit a .3.470533 l .8 2022-06-18 2022-06-19 [facility] [id number] [address] [place] 00:00:00 00:00:00 MAR[address]LENA [address] 2022-06-17 2022-06-17 [facility] Manuel Martinez 1.2.840.1 [id number] Methodi 10:07:29 23:59:[address] 3.430.2.7 Hospit a .3.511402 l .8 2022-06-17 2022-06-17 [facility] Manuel Martinez 1.2.840.1 [id number] Methodi 10:07:13 23:59:[address] 3.430.2.7 Hospit a .3.641131 l .8 2022-06-17 2022-06-17 [facility] 1.2.840.1 1.2.633.248 8570 [id number] Methodi 00:00:00 00:00:[address] 3.430.2.7 0.2.7.3.698 spita .3.878708 084.8 l .8 2022-06-17 2022-06-17 Outpatient MANUEL MARTINEZ [facility] [id number] [id number] [place] 00:00:00 00:00:[address] 2022-06-17 2022-06-17 Outpatient MANUEL MARTINEZ [facility] 2099 [id number] [place] 00:00:00 00:00:[address] 2022-06-14 2022-06-14 [facility] Manuel Martinez 1.2.840.1 [id number] [id number] Methodi 00:00:00 00:00:[address] 3.430.2.7 Hospit a .3.196279 l .8 2022-05-28 2022-06-07 Office Manuel Martinez 1.2.840.1 [id number] Methodi 15:00:00 00:40:[address] 3.430.2.7 Hospit a .3.080693 l .8 2022-06-06 2022-06-06 Orders Eagle, 1.2.840.1 [id number] Methodi 00:00:00 00:00:00 Only Margaret 93523.1.[address] 3.430.2.7 Hospit a .3.751806 l .8 2022-05-29 2022-05-29 Telephone Juanito, 1.2.840.1 [id number] 2100 [id number] Methodi 00:00:00 00:00:[address] 3.430.2.7 Hospit a .3.188782 l .8 2022-05-28 2022-05-28 Hospital Manuel Martinez 1.2.840.1 [id number] Methodi 10:14:40 23:59:[address] 3.430.2.7 Hospit a .3.026061 l .8 2022-05-28 2022-05-28 Infusion Manuel Martinez 1.2.840.1 [id number] Methodi 11:15:00 14:15:[address] 3.430.2.7 Hospit a .3.737846 l .8 2022-05-28 2022-05-28 Orders Salvatore, 1.2.840.1 [id number] Methodi 00:00:00 00:00:00 Only Magui Ram 36719.1.[address] 3.430.2.7 Hospit a .3.206258 l .8 2022-05-28 2022-05-28 Travel 1.2.840.1 1.2.514.300 3153 [id number] Methodi 00:00:00 00:00:[address] 3.430.2.7 0.2.7.3.698 Ho spita .3.562015 084.8 l .8 2022-05-28 2022-05-28 Outpatient [facility] 2100 [id number] [place] 00:00:00 00:00:[address] 2022-05-28 2022-05-28 [facility] 2100 [id number] [place] 00:00:00 00:00:[address] 2022-05-28 2022-05-28 [facility] 2100 [id number] [place] 00:00:00 00:00:[address] 2022-05-17 2022-05-17 Eloise Guillermo, 1.2.840.1 [id number] [id number] Methodi 00:00:00 00:00:00 Only Margaret 95782.1.[address] 3.430.2.7 Hospit a .3.691327 l .8 2022-03-06 2022-05-09 Office Manuel Martinez 1.2.840.1 [id number] Methodi 15:20:00 11:13:[address] 3.430.2.7 Hospit a .3.446663 l .8 2022-02-05 2022-05-09 Office Manuel Martinez 1.2.840.1 [id number] [id number] Methodi 13:20:00 10:48:[address] 3.430.2.7 Hospit a .3.092839 l .8 2022-05-02 2022-05-02 Eloise Chase 1.2.840.1 [id number] Methodi 00:00:00 00:00:00 Only Magui Ram 97686.1.[address] 3.430.2.7 Hospit a .3.677221 l .8 2022-05-02 2022-05-02 Eloise Chase 1.2.840.1 [id number] Methodi 00:00:00 00:00:00 Only Magui Ram 24480.1.[address] 3.430.2.7 Hospit a .3.718736 l .8 2022-05-01 2022-05-01 Infusion Manuel Martinez 1.2.840.1 [id number] Methodi 11:15:00 14:15:[address] 3.430.2.7 Hospit a .3.125908 l .8 2022-05-01 2022-05-01 Travel 1.2.840.1 1.2.847.045 7984 [id number] Methodi 00:00:00 00:00:[address] 3.430.2.7 0.2.7.3.698 Ho spita .3.335832 084.8 l .8 2022-05-01 2022-05-01 Outpatient MANUEL MARTINEZ [facility] 2100 [id number] [place] 00:00:00 00:00:[address] 2022-05-01 2022-05-01 Outpatient MANUEL MARTINEZ [facility] 2100 [id number] [place] 00:00:00 00:00:[address] 2022-04-30 2022-04-30 Orders Manuel Martinez 1.2.840.1 [id number] [facility] 00:00:00 00:00:[address] 3.430.2.7 Hospit a .3.737855 l .8 2022-04-02 2022-04-02 Infusion Manuel Martinez 1.2.840.1 [id number] [facility] 11:15:00 14:15:[address] 3.430.2.7 Hospit a .3.437284 l .8 2022-04-02 2022-04-02 Travel 1.2.840.1 1.2.118.846 5039 [id number] [facility] 00:00:00 00:00:[address] 3.430.2.7 0.2.7.3.698 spita .3.528989 084.8 l .8 2022-04-02 2022-04-02 Outpatient MANUEL MARTINEZ [facility] 2100 [id number] [place] 00:00:00 00:00:[address] 2022-03-29 2022-03-29 Orders Manuel Martinez 1.2.840.1 [id number] [facility] 00:00:00 00:00:[address] 3.430.2.7 Hospit a .3.079126 l .8 2022-03-18 2022-03-18 [facility] 1.2.840.1 [id number] 05319 [id number] [facility] 13:15:00 14:08:[address] 3.430.2.7 Hospit a .3.670911 l .8 2022-03-18 2022-03-18 Orders Provider, 1.2.840.1 [id number] [id number] [facility] 00:00:00 00:00:00 Only Unknown 11380.1.[address] 3.430.2.7 Hospit a .3.347972 l .8 2022-03-18 2022-03-18 Outpatient [facility] [id number] [address] [place] [address] 00:00:00 00:00:[address] 2022-03-15 2022-03-15 [facility] 1.2.840.1 [id number] Methodi 12:00:00 12:27:[address] 3.430.2.7 Hospit a .3.129919 l .8 2022-03-15 2022-03-15 Orders Provider, 1.2.840.1 [id number] 2100 937055 Methodi 00:00:00 00:00:00 Only Unknown 47882.1.[address] 3.430.2.7 Hospit a .3.785658 l .8 2022-03-15 2022-03-15 Outpatient [facility] [id number] [address] [place] [address] 00:00:00 00:00:[address] 2022-03-14 2022-03-14 [facility] 1.2.840.1 [id number] 10984 29833 Methodi 14:30:00 15:26:35 Encounter Marielena Tirado 55977.1.[address] 3.430.2.7 Hospit a .3.271211 l .8 2022-03-14 2022-03-14 [facility] Marielena RamsayMichael 1.2.840.1 68433 1011 [id number] Methodi 13:21:52 15:06:49 Encounter Makayla Cuevas 37558.1.[address] 3.430.2.7 Hospit a .3.930548 l .8 2022-03-14 2022-03-14 [facility] 12.840.1 [id number] 36286 55016 Methodi 12:53:46 13:20:[address] 3.430.2.7 Hospit a .3.282158 l .8 2022-03-14 2022-03-14 Orders Provider, 1.2.840.1 [id number] 2100 859328 Methodi 00:00:00 00:00:00 Only Unknown 49658.1.[address] 3.430.2.7 Hospit a .3.016376 l .8 2022-03-14 2022-03-14 Outpatient [facility] [id number] 051 [place] 00:00:00 00:00:[address] 2022-03-14 2022-03-14 Outpatient [facility] [id number] 058 [place] 00:00:00 00:00:00 MARIELENA [address] 2022-03-14 2022-03-14 Outpatient [facility] [id number] 021 [place] 00:00:00 00:00:00 MARIELENA [address] 2022-03-13 2022-03-13 [facility] 1.2.840.1 [id number] 41336 00819 Methodi 13:27:48 13:51:[address] 3.430.2.7 Hospit a .3.792252 l .8 2022-03-13 2022-03-13 Orders Provider, 1.2.840.1 [id number] 2100 931546 Methodi 00:00:00 00:00:00 Only Unknown 76783.1.[address] 3.430.2.7 Hospit a .3.719505 l .8 2022-03-13 2022-03-13 Outpatient [facility] [id number] 051 [place] 00:00:00 00:00:[address] 2022-03-12 2022-03-12 [facility] 1.2.840.1 [id number] 21001 85562 Methodi 07:15:00 16:57:48 Encounter Marielena RamMichael 62622.1.[address] 3.430.2.7 Hospit a .3.041097 l .8 2022-03-12 2022-03-12 [facility] 1.2.840.1 [id number] 22463 51363 Methodi 12:52:46 13:43:[address] 3.430.2.7 Hospit a .3.174485 l .8 2022-03-12 2022-03-12 Orders Provider, 1.2.840.1 [id number] 2100 968931 Methodi 00:00:00 00:00:00 Only Unknown 36464.1.[address] 3.430.2.7 Hospit a .3.004132 l .8 2022-03-12 2022-03-12 [facility] [id number] [address] [place] [address] 00:00:00 00:00:00 MARIELENA [address] 2022-03-12 2022-03-12 Outpatient [facility] [id number] 051 [place] 00:00:00 00:00:[address] 2022-03-11 2022-03-11 [facility] 1.2.840.1 [id number] 21001 53231 Methodi 14:45:00 15:31:[address] 3.430.2.7 Hospit a .3.956846 l .8 2022-03-11 2022-03-11 Orders Provider, 1.2.840.1 [id number] 2100 638551 Methodi 00:00:00 00:00:00 Only Unknown 52597.1.[address] 3.430.2.7 Hospit a .3.968412 l .8 2022-03-11 2022-03-11 Outpatient [facility] [id number] 051 [place] 00:00:00 00:00:[address] 2022-03-08 2022-03-08 [facility] 1.2.840.1 [id number] 50656 31716 Methodi 12:00:00 12:08:[address] 3.430.2.7 Hospit a .3.932238 l .8 2022-03-08 2022-03-08 [facility] 1.2.840.1 [id number] 46193 76715 Methodi 09:22:16 11:29:00 Encounter Marielena Tirado 48959.1.[address] 3.430.2.7 Hospit a .3.840456 l .8 2022-03-08 2022-03-08 Orders Provider, 1.2.840.1 [id number] 2099 150664 Methodi 00:00:00 00:00:00 Only Unknown 27155.1.[address] 3.430.2.7 Hospit a .3.533105 l .8 2022-03-08 2022-03-08 Travel 1.2.840.1 1.2.633.394 5160 453584 Methodi 00:00:00 00:00:[address] 3.430.2.7 0.2.7.3.698 spita .3.351817 084.8 l .8 2022-03-08 2022-03-08 Outpatient [facility] [id number] 502 [place] 00:00:00 00:00:00 MARIELENA [address] 2022-03-08 2022-03-08 Outpatient [facility] [id number] 051 [place] 00:00:00 00:00:[address] 2022-03-07 2022-03-07 [facility] Marielena Ramsay 1.2.840.1 21086 1011 [id number] Methodi 15:04:08 15:46:52 Encounter Stephani Marinelli 34794.1.[address] 3.430.2.7 Hospit a .3.689383 l .8 2022-03-07 2022-03-07 Hospital 1.2.840.1 [id number] Methodi 14:45:00 15:02:[address] 3.430.2.7 Hospit a .3.815735 l .8 2022-03-07 2022-03-07 Orders Provider, 1.2.840.1 [id number] 2099 406037 Methodi 00:00:00 00:00:00 Only Unknown 76172.1.[address] 3.430.2.7 Hospit a .3.778712 l .8 2022-03-07 2022-03-07 Outpatient [facility] [id number] 051 [place] 00:00:00 00:00:[address] 2022-03-07 2022-03-07 Outpatient [facility] [id number] 058 [place] 00:00:00 00:00:00 MARIELENA [address] 2022-03-06 2022-03-06 Infusion Manuel Martinez 1.2.840.1 [id number] 21 [id number] Methodi 14:30:00 17:30:[address] 3.430.2.7 Hospit a .3.723579 l .8 2022-03-06 2022-03-06 [facility] 1.2.840.1 [id number] 21001 33445 Methodi 13:15:00 13:57:[address] 3.430.2.7 Hospit a .3.188726 l .8 2022-03-06 2022-03-06 Travel 1.2.840.1 1.2.089.303 9419 195080 Methodi 00:00:00 00:00:[address] 3.430.2.7 0.2.7.3.698 Ho spita .3.415915 084.8 l .8 2022-03-06 2022-03-06 Orders Provider, 1.2.840.1 [id number] 2099 396543 Methodi 00:00:00 00:00:00 Only Unknown 90126.1.[address] 3.430.2.7 Hospit a .3.927639 l .8 2022-03-06 2022-03-06 Outpatient [facility] [id number] 051 [place] 00:00:00 00:00:[address] 2022-03-06 2022-03-06 Outpatient MANUEL MARTINEZ [facility] 2100 [id number] [place] 00:00:00 00:00:[address] 2022-03-06 2022-03-06 Outpatient [facility] 2100 140222 [place] 00:00:00 00:00:[address] 2022-03-05 2022-03-05 [facility] 1.2.840.1 [id number] 17672 54605 Methodi 14:01:32 14:29:[address] 3.430.2.7 Hospit a .3.936070 l .8 2022-03-05 2022-03-05 [facility] 1.2.840.1 1.2.073.877 1237 514057 Methodi 00:00:00 00:00:[address] 3.430.2.7 0.2.7.3.698 spita .3.088003 084.8 l .8 2022-03-05 2022-03-05 Orders Provider, 1.2.840.1 [id number] 2099 728258 Methodi 00:00:00 00:00:00 Only Unknown 05943.1.[address] 3.430.2.7 Hospit a .3.069292 l .8 2022-03-05 2022-03-05 Outpatient [facility] [id number] 051 [place] 00:00:00 00:00:[address] 2022-03-04 2022-03-04 [facility] 1.2.840.1 [id number] 51264 47673 Methodi 12:47:19 13:24:[address] 3.430.2.7 Hospit a .3.686984 l .8 2022-03-04 2022-03-04 Orders Provider, 1.2.840.1 [id number] 2100 623502 Methodi 00:00:00 00:00:00 Only Unknown 35141.1.[address] 3.430.2.7 Hospit a .3.267581 l .8 2022-03-04 2022-03-04 Outpatient [facility] [id number] 051 [place] 00:00:00 00:00:[address] 2022-03-01 2022-03-01 Hospital 1.2.840.1 [id number] 21001 32431 Methodi 14:18:10 14:46:[address] 3.430.2.7 Hospit a .3.143182 l .8 2022-03-01 2022-03-01 Orders Manuel Martinez 1.2.840.1 [id number] 617 7056669 Methodi 00:00:00 00:00:[address] 3.430.2.7 Hospit a .3.639675 l .8 2022-03-01 2022-03-01 Orders Provider, 1.2.840.1 [id number] 2100 087652 Methodi 00:00:00 00:00:00 Only Unknown 99978.1.[address] 3.430.2.7 Hospit a .3.366798 l .8 2022-03-01 2022-03-01 Outpatient [facility] [id number] 051 [place] 00:00:00 00:00:[address] 2022-02-28 2022-02-28 Hospital Marielena Ramsay 1.2.840.1 01696 1011 [id number] Methodi 15:00:00 16:06:57 Encounter Makayla Cuevas 55205.1.[address] 3.430.2.7 Hospit a .3.522874 l .8 2022-02-28 2022-02-28 Hospital 1.2.840.1 [id number] 21001 22642 Methodi 14:30:00 15:13:[address] 3.430.2.7 Hospit a .3.822687 l .8 2022-02-28 2022-02-28 Orders Provider, 1.2.840.1 [id number] 2100 363082 Methodi 00:00:00 00:00:00 Only Unknown 47154.1.[address] 3.430.2.7 Hospit a .3.867804 l .8 2022-02-28 2022-02-28 Outpatient [facility] [id number] [address] [place] [address] 00:00:00 00:00:[address] 2022-02-28 2022-02-28 Outpatient [facility] [id number] [address] [place] [address] 00:00:00 00:00:00 MARIELENA [address] 2022-02-27 2022-02-27 [facility] 1.2.840.1 [id number] 70705 54844 Methodi 15:00:00 15:28:[address] 3.430.2.7 Hospit a .3.913911 l .8 2022-02-27 2022-02-27 Orders Provider, 1.2.840.1 [id number] 2100 875620 Methodi 00:00:00 00:00:00 Only Unknown 36481.1.[address] 3.430.2.7 Hospit a .3.986723 l .8 2022-02-27 2022-02-27 Outpatient [facility] [id number] [address] [place] [address] 00:00:00 00:00:[address] 2022-02-26 2022-02-26 [facility] 1.2.840.1 [id number] 28139 67405 Methodi 15:00:00 15:36:[address] 3.430.2.7 Hospit a .3.065405 l .8 2022-02-26 2022-02-26 Orders Provider, 1.2.840.1 [id number] 2100 854502 Methodi 00:00:00 00:00:00 Only Unknown 32021.1.[address] 3.430.2.7 Hospit a .3.205912 l .8 2022-02-26 2022-02-26 Outpatient [facility] [id number] 051 [place] 00:00:00 00:00:[address] 2022-02-25 2022-02-25 [facility] 1.2.840.1 [id number] 90320 07184 Methodi 14:17:54 14:36:[address] 3.430.2.7 Hospit a .3.463313 l .8 2022-02-25 2022-02-25 Travel 1.2.840.1 1.2.966.077 6036 911789 Methodi 00:00:00 00:00:[address] 3.430.2.7 0.2.7.3.698 Ho spita .3.663035 084.8 l .8 2022-02-25 2022-02-25 Orders Provider, 1.2.840.1 [id number] 2099 942731 Methodi 00:00:00 00:00:00 Only Unknown 29809.1.[address] 3.430.2.7 Hospit a .3.022618 l .8 2022-02-25 2022-02-25 Outpatient [facility] [id number] [address] [place] [address] 00:00:00 00:00:[address] 2022-02-22 2022-02-22 [facility] 1.2.840.1 [id number] 69979 16224 Methodi 14:29:02 15:26:[address] 3.430.2.7 Hospit a .3.551078 l .8 2022-02-21 2022-02-22 Hospital [facility], 1.2.840.1 [id number] 08995 71578 Methodi 16:00:00 07:53:40 Encounter Marielena Tirado 49350.1.[address] 3.430.2.7 Hospit a .3.156037 l .8 2022-02-21 2022-02-22 Hospital Marielena Ramsay 1.2.840.1 93012 1011 [id number] Methodi 15:30:00 07:50:44 Encounter Stephani Marinelli 01272.1.[address] 3.430.2.7 Hospit a .3.543952 l .8 2022-02-22 2022-02-22 Orders Provider, 1.2.840.1 [id number] 2099 242295 Methodi 00:00:00 00:00:00 Only Unknown 64905.1.[address] 3.430.2.7 Hospit a .3.382644 l .8 2022-02-22 2022-02-22 Outpatient [facility] [id number] 051 [place] 00:00:00 00:00:[address] 2022-02-21 2022-02-22 Outpatient [facility] [id number] 058 [place] 00:00:00 00:00:00 MARIELENA [address] 2022-02-21 2022-02-22 Outpatient [facility] [id number] 534 [place] 00:00:00 00:00:00 MARIELENA [address] 2022-02-21 2022-02-21 Hospital 1.2.840.1 [id number] 58305 59041 Methodi 15:00:00 15:31:[address] 3.430.2.7 Hospit a .3.466295 l .8 2022-02-21 2022-02-21 Orders Provider, 1.2.840.1 [id number] 2100 020990 Methodi 00:00:00 00:00:00 Only Unknown 67509.1.[address] 3.430.2.7 Hospit a .3.860872 l .8 2022-02-21 2022-02-21 Travel 1.2.840.1 1.2.282.604 7138 012271 Methodi 00:00:00 00:00:[address] 3.430.2.7 0.2.7.3.698 Ho spita .3.876836 084.8 l .8 2022-02-21 2022-02-21 Outpatient [facility] [id number] 051 [place] 00:00:00 00:00:[address] 2022-02-20 2022-02-20 [facility] 1.2.840.1 [id number] 67749 50200 Methodi 15:00:00 15:27:[address] 3.430.2.7 Hospit a .3.269778 l .8 2022-02-20 2022-02-20 Orders Provider, 1.2.840.1 [id number] 2100 782057 Methodi 00:00:00 00:00:00 Only Unknown 57746.1.[address] 3.430.2.7 Hospit a .3.318502 l .8 2022-02-20 2022-02-20 Outpatient [facility] [id number] [address] [place] [address] 00:00:00 00:00:[address] 2022-02-19 2022-02-19 [facility] 1.2.840.1 [id number] 56385 76113 Methodi 16:11:23 17:25:[address] 3.430.2.7 Hospit a .3.106815 l .8 2022-02-19 2022-02-19 Orders Provider, 1.2.840.1 [id number] 2100 699923 Methodi 00:00:00 00:00:00 Only Unknown 07896.1.[address] 3.430.2.7 Hospit a .3.649767 l .8 2022-02-19 2022-02-19 Outpatient [facility] [id number] [address] [place] [address] 00:00:00 00:00:[address] 2022-02-18 2022-02-18 [facility] 1.2.840.1 [id number] 40464 Methodi 14:55:34 15:27:[address] 3.430.2.7 Hospit a .3.486930 l .8 2022-02-18 2022-02-18 Orders Provider, 1.2.840.1 [id number] 2100 533691 Methodi 00:00:00 00:00:00 Only Unknown 43923.1.[address] 3.430.2.7 Hospit a .3.939144 l .8 2022-02-18 2022-02-18 Outpatient [facility] [id number] 051 [place] 00:00:00 00:00:[address] 2022-02-15 2022-02-15 [facility] 1.2.840.1 [id number] 68907 31160 Methodi 14:44:03 15:09:[address] 3.430.2.7 Hospit a .3.746317 l .8 2022-02-14 2022-02-15 [facility] Audi Marielena YoMichael 1.2.840.1 84556 1011 [id number] Methodi 15:30:00 08:02:02 Encounter Marinelli Stephani 63783.1.[address] 3.430.2.7 Hospit a .3.433628 l .8 2022-02-15 2022-02-15 Orders Provider, 1.2.840.1 [id number] 2100 044009 Methodi 00:00:00 00:00:00 Only Unknown 76932.1.[address] 3.430.2.7 Hospit a .3.254108 l .8 2022-02-15 2022-02-15 Outpatient [facility] [id number] 051 [place] 00:00:00 00:00:[address] 2022-02-14 2022-02-15 Outpatient [facility] [id number] 058 [place] 00:00:00 00:00:00 MARIELENA [address] 2022-02-14 2022-02-14 [facility] 1.2.840.1 [id number] 60598 79128 Methodi 16:00:00 23:59:00 Encounter Marielena YoMichael 26010.1.[address] 3.430.2.7 Hospit a .3.380843 l .8 2022-02-14 2022-02-14 [facility] 1.2.840.1 [id number] 31091 17799 Methodi 14:44:03 15:31:[address] 3.430.2.7 Hospit a .3.072639 l .8 2022-02-14 2022-02-14 Orders Provider, 1.2.840.1 [id number] 2100 562533 Methodi 00:00:00 00:00:00 Only Unknown 04972.1.[address] 3.430.2.7 Hospit a .3.895922 l .8 2022-02-14 2022-02-14 Outpatient [facility] [id number] 051 [place] 00:00:00 00:00:[address] 2022-02-14 2022-02-14 [facility] [id number] 075 [place] 00:00:00 00:00:00 MARIELENA [address] 2022-02-13 2022-02-13 [facility] 1.2.840.1 [id number] 55279 Methodi 13:13:00 13:38:[address] 3.430.2.7 Hospit a .3.132551 l .8 2022-02-13 2022-02-13 Orders Provider, 1.2.840.1 [id number] 2100 970726 Methodi 00:00:00 00:00:00 Only Unknown 37231.1.[address] 3.430.2.7 Hospit a .3.558158 l .8 2022-02-13 2022-02-13 [facility] [id number] [address] [place] [address] 00:00:00 00:00:[address] 2022-02-12 2022-02-12 [facility] 1.2.840.1 [id number] 47452 59130 Methodi 14:38:42 15:16:[address] 3.430.2.7 Hospit a .3.178171 l .8 2022-02-11 2022-02-12 [facility] 1.2.840.1 [id number] 78186 90119 Methodi 08:45:00 08:24:56 Encounter Marielena Tirado 91838.1.[address] 3.430.2.7 Hospit a .3.090320 l .8 2022-02-12 2022-02-12 Orders Provider, 1.2.840.1 [id number] 2100 715383 Methodi 00:00:00 00:00:00 Only Unknown 77272.1.[address] 3.430.2.7 Hospit a .3.838717 l .8 2022-02-12 2022-02-12 Outpatient [facility] [id number] 051 [place] 00:00:00 00:00:[address] 2022-02-11 2022-02-12 Outpatient [facility] [id number] [address] [place] [address] 00:00:00 00:00:00 MARIELENA [address] 2022-02-11 2022-02-11 [facility] 1.2.840.1 [id number] 21730 76262 Methodi 13:09:17 13:34:[address] 3.430.2.7 Hospit a .3.453132 l .8 2022-02-11 2022-02-11 Orders Provider, 1.2.840.1 [id number] 2100 311268 Methodi 00:00:00 00:00:00 Only Unknown 29259.1.[address] 3.430.2.7 Hospit a .3.602196 l .8 2022-02-11 2022-02-11 Outpatient [facility] [id number] 051 [place] 00:00:00 00:00:[address] 2022-02-08 2022-02-08 [facility] 1.2.840.1 [id number] 40004 45027 Methodi 14:50:18 15:19:[address] 3.430.2.7 Hospit a .3.194058 l .8 2022-02-08 2022-02-08 Orders Provider, 1.2.840.1 [id number] 2100 522761 Methodi 00:00:00 00:00:00 Only Unknown 44332.1.[address] 3.430.2.7 Hospit a .3.755945 l .8 2022-02-08 2022-02-08 Outpatient [facility] [id number] [address] [place] [address] 00:00:00 00:00:[address] 2022-02-07 2022-02-07 [facility] Marielena Ramsay 1.2.840.1 58577 1011 [id number] Methodi 15:05:09 15:42:44 Encounter Stephani Marinelli 58017.1.[address] 3.430.2.7 Hospit a .3.948873 l .8 2022-02-07 2022-02-07 [facility] 1.2.840.1 [id number] 21001 98347 Methodi 15:02:53 15:04:[address] 3.430.2.7 Hospit a .3.411998 l .8 2022-02-07 2022-02-07 Travel 1.2.840.1 1.2.833.413 2871 078930 Methodi 00:00:00 00:00:[address] 3.430.2.7 0.2.7.3.698 Ho spita .3.310059 084.8 l .8 2022-02-07 2022-02-07 Orders Provider, 1.2.840.1 [id number] 2099 103886 Methodi 00:00:00 00:00:00 Only Unknown 01175.1.[address] 3.430.2.7 Hospit a .3.504002 l .8 2022-02-07 2022-02-07 Outpatient [facility] [id number] 1 [place] 00:00:00 00:00:[address] 2022-02-07 2022-02-07 Outpatient [facility] [id number] [address] [place] [address] 00:00:00 00:00:00 MARIELENA Byrd [facility] 2022-02-06 2022-02-06 [facility] 1.2.840.1 [id number] 21001 62995 Methodi 16:17:46 16:37:[address] 3.430.2.7 Hospit a .3.069193 l .8 2022-02-05 2022-02-06 [facility] Marielena Ramsay 1.2.840.1 01991 1011 [id number] Methodi 16:47:22 09:27:38 Encounter Makayla Cuevas 78602.1.[address] 3.430.2.7 Hospit a .3.643672 l .8 2022-02-06 2022-02-06 Orders Provider, 1.2.840.1 [id number] 2100 332434 Methodi 00:00:00 00:00:00 Only Unknown 91999.1.[address] 3.430.2.7 Hospit a .3.088028 l .8 2022-02-06 2022-02-06 Orders [facility], 1.2.840.1 [id number] 365262 6385 Methodi 00:00:00 00:00:00 Only [facility] 08073.1.1 [address] 3.430.2.7 Hospit a .3.656561 l .8 2022-02-06 2022-02-06 Outpatient [facility] [id number] 051 [place] 00:00:00 00:00:[address] 2022-02-05 2022-02-06 Outpatient [facility] [id number] 331 [place] 00:00:00 00:00:00 MARIELENA Roy [facility] 2022-02-05 2022-02-05 [facility] 1.2.840.1 [id number] 47188 69432 Methodi 15:45:00 16:43:41 Encounter Marielena M. 94382.1.[address] 3.430.2.7 Hospit a .3.843918 l .8 2022-02-05 2022-02-05 Infusion Manuel Martinez 1.2.840.1 [id number] 21 [id number] Methodi 11:45:00 14:45:[address] 3.430.2.7 Hospit a .3.299682 l .8 2022-02-05 2022-02-05 Orders Provider, 1.2.840.1 [id number] 2100 [id number] Methodi 00:00:00 00:00:00 Only Unknown 58408.1.[address] 3.430.2.7 Hospit a .3.063833 l .8 2022-02-05 2022-02-05 Travel 1.2.840.1 1.2.736.707 3600 964320 Methodi 00:00:00 00:00:[address] 3.430.2.7 0.2.7.3.698 Ho spita .3.332122 084.8 l .8 2022-02-05 2022-02-05 Outpatient MANUEL MARTINEZ [facility] 2100 [id number] [place] 00:00:00 00:00:[address] 2022-02-05 2022-02-05 Outpatient MANUEL MARTINEZ [facility] 2100 125091 [place] 00:00:00 00:00:[address] 2022-02-05 2022-02-05 Outpatient MARIANAKELSIE [facility] [id number] [place] 00:00:00 00:00:00 MARIELENA [address] 2022-02-04 2022-02-04 Orders Manuel Martinez 1.2.840.1 [id number] Methodi 00:00:00 00:00:[address] 3.430.2.7 Hospit a .3.405554 l .8 2022-02-01 2022-02-01 Travel 1.2.840.1 1.2.787.003 1426 [id number] Methodi 00:00:00 00:00:[address] 3.430.2.7 0.2.7.3.698 Ho spita .3.689994 084.8 l .8 2022-01-25 2022-01-25 Telephone Manuel Martinez 1.2.840.1 [id number] 2 [id number] Methodi 00:00:00 00:00:[address] 3.430.2.7 Hospit a .3.012307 l .8 2022-01-21 2022-01-21 Social Mckenna, 1.2.840.1 [id number] 21059 31863 Methodi 00:00:00 00:00:00 Work Blanca 59634.1.[address] 3.430.2.7 Hospit a .3.619013 l .8 2022-01-21 2022-01-21 Social Mckenna, 1.2.840.1 [id number] Methodi 00:00:00 00:00:00 Work Blanca 04227.1.[address] 3.430.2.7 Hospit a .3.972463 l .8 2022-01-16 2022-01-17 [facility].840.[facility] 07570 [id number] [id number] Methodi 14:32:32 08:38:05 Encounter Margaret Cowan 63907.1.[address] 3.430.2.7 Hospit a .3.150712 l .8 2022-01-17 2022-01-17 [facility], 1.2.840.1 [id number] Methodi 00:00:00 00:00:00 Work [place]anca 85312.1.[address] 3.430.2.7 Hospit a .3.968839 l .8 2022-01-17 2022-01-17 [facility], 1.2.840.1 [id number] 82780 Methodi 00:00:00 00:00:00 Work [place]anca [address]990.1.[address] 3.430.2.7 Hospit a .3.901080 l .8 2022-01-16 2022-01-17 [facility], 1.2.840.1 [id number] 12397 44390 [place] 00:00:00 00:00:00 Encounter MARIELENA 37115.1.1 [address] .3.113790 .8 2022-01-16 2022-01-16 [facility], 1.2.840.1 [id number] 72978 Methodi 16:15:00 16:49:06 Encounter Marielena Tirado 36158.1.[address] 3.430.2.7 Hospit a .3.724054 l .8 2022-01-08 2022-01-16 Office Manuel Martinez 1.2.840.1 [id number] 742 [id number] Methodi 10:20:00 00:36:[address] 3.430.2.7 Hospit a .3.931439 l .8 2022-01-08 [facility]22[facility] [id number] 554 [id number] Methodi 10:20:00 00:36:[address] 3.430.2.7 Hospit a .3.609955 l .8 2022-01-16 2022-01-16 Travel 1.2.840.1 1.2.458.952 1528 004083 Methodi 00:00:00 00:00:[address] 3.430.2.7 0.2.7.3.698 Ho spita .3.665111 084.8 l .8 2022-01-16 2022-01-16 [facility] 1.2.840.1 [id number] [place] 00:00:00 00:00:00 Encounter MARIELENA 90990.1.1 [address] .3.002429 .8 2022-01-16 2022-01-16 Travel 1.2.840.1 1.2.649.737 4260 313666 Methodi 00:00:00 00:00:[address] 3.430.2.7 0.2.7.3.698 Ho spita .3.297449 084.8 l .8 2022-01-15 2022-01-15 [facility], 1.2.840.1 [id number] Methodi 00:00:00 00:00:00 Marielena Tirado [address]31.[address] 3.430.2.7 Hospit a .3.644483 l .8 2022-01-15 2022-01-15 [facility], 1.2.840.1 [id number] Methodi 00:00:00 00:00:00 Mar[address]ado [address] 3.430.2.7 Hospit a .3.498464 l .8 2022-01-10 2022-01-11 [facility], 1.2.840.1 [id number] 79473 Methodi 07:00:00 10:29:48 Encounter Marielena Tirado 48314.1.[address] 3.430.2.7 Hospit a .3.110758 l .8 2022-01-10 2022-01-11 [facility] 1.2.840.1 [id number] 89731 04029 [place] 00:00:00 00:00:00 Encounter MARIELENA 06329.1.[address] .3.034373 .8 2022-01-08 2022-01-08 [facility] Manuel Martinez 1.2.840.1 [id number] 21 [id number] Methodi 07:18:36 23:59:[address] 3.430.2.7 Hospit a .3.879968 l .8 2022-01-08 2022-01-08 Infusion Manuel Martinez 1.2.840.1 [id number] 21 [id number] Methodi 09:15:00 12:15:[address] 3.430.2.7 Hospit a .3.194543 l .8 2022-01-08 2022-01-08 Infusion Manuel Martinez 1.2.840.1 [id number] 21 [id number] Methodi 09:15:00 12:15:[address] 3.430.2.7 Hospit a .3.155627 l .8 2022-01-08 2022-01-08 Orders Manuel Martinez 1.2.840.1 [id number] 367 [id number] Methodi 00:00:00 00:00:[address] 3.430.2.7 Hospit a .3.208391 l .8 2022-01-08 2022-01-08 Travel 1.2.840.1 1.2.253.542 5740 444775 Methodi 00:00:00 00:00:[address] 3.430.2.7 0.2.7.3.698 Ho spita .3.352307 084.8 l .8 2022-01-08 2022-01-08 [facility] LUBNA MANUEL 1.2.840.1 [id number] 21 [id number] [place] 00:00:00 00:00:00 Encounter 99399.1.1 [address] .3.346208 .8 2022-01-08 2022-01-08 [facility] Manuel Martinez 1.2.840.1 [id number] 828 [id number] Methodi 00:00:00 00:00:[address] 3.430.2.7 Hospit a .3.967974 l .8 2022-01-08 2022-01-08 Travel 1.2.840.1 1.2.179.947 9018 381962 Methodi 00:00:00 00:00:[address] 3.430.2.7 0.2.7.3.698 Ho spita .3.636630 084.8 l .8 2022-01-04 2022-01-04 Travel 1.2.840.1 1.2.405.917 0244 128195 Methodi 00:00:00 00:00:[address] 3.430.2.7 0.2.7.3.698 Ho spita .3.186728 084.8 l .8 2022-01-04 2022-01-04 Travel 1.2.840.1 1.2.604.367 8007 406812 Methodi 00:00:00 00:00:[address] 3.430.2.7 0.2.7.3.698 Ho spita .3.552696 084.8 l .8 2021-12-21 2021-12-21 Eloise Guillermo 1.2.840.1 [id number] 918 2011272 Methodi 00:00:00 00:00:00 Only Margaret 24943.1.[address] 3.430.2.7 Hospit a .3.353853 l .8 2021-12-21 2021-12-21 Eloise Guillermo 1.2.840.1 [id number] 696 [id number] Methodi 00:00:00 00:00:00 Only Margaret 18532.1.[address] 3.430.2.7 Hospit a .3.391640 l .8 2021-12-11 2021-12-20 Office Manuel Martinez 1.2.840.1 [id number] 967 [id number] Methodi 10:20:00 00:30:[address] 3.430.2.7 Hospit a .3.278638 l .8 2021-12-11 2021-12-20 Office Manuel Martinez 1.2.840.1 [id number] 534 8463378 Methodi 10:20:00 00:30:[address] 3.430.2.7 Hospit a .3.395333 l .8 2021-12-11 2021-12-11 Infusion Manuel Martinez 1.2.840.1 [id number] Methodi 09:15:00 12:15:[address] 3.430.2.7 Hospit a .3.257144 l .8 2021-12-11 2021-12-11 Infusion Manuel Martinez 1.2.840.1 [id number] 74836129 Methodi 09:15:00 12:15:[address] 3.430.2.7 Hospit a .3.883564 l .8 2021-12-11 2021-12-11 Travel 1.2.840.1 1.2.890.580 3716 363698 Methodi 00:00:00 00:00:[address] 3.430.2.7 0.2.7.3.698 Ho spita .3.264863 084.8 l .8 2021-12-11 2021-12-11 Travel 1.2.840.1 1.2.107.767 5757 903588 Methodi 00:00:00 00:00:[address] 3.430.2.7 0.2.7.3.698 Ho spita .3.416768 084.8 l .8 2021-12-07 2021-12-07 Orders Manuel Martinez 1.2.840.1 [id number] 063 1022467 Methodi 00:00:00 00:00:[address] 3.430.2.7 Hospit a .3.833899 l .8 2021-12-07 2021-12-07 Travel 1.2.840.1 1.2.846.614 5052 792735 Methodi 00:00:00 00:00:[address] 3.430.2.7 0.2.7.3.698 Ho spita .3.189539 084.8 l .8 2021-12-07 2021-12-07 Orders Manuel Martinez 1.2.840.1 [id number] 152 [id number] Methodi 00:00:00 00:00:[address] 3.430.2.7 Hospit a .3.459288 l .8 2021-12-07 2021-12-07 Travel 1.2.840.1 1.2.785.659 5183 655225 Methodi 00:00:00 00:00:[address] 3.430.2.7 0.2.7.3.698 Ho spita .3.134836 084.8 l .8 2021-11-13 2021-11-22 Office Manuel Martinez 1.2.840.1 [id number] 031 [id number] Methodi 12:00:00 00:28:[address] 3.430.2.7 Hospit a .3.110768 l .8 2021-11-13 2021-11-22 Office Manuel Martinez 1.2.840.1 [id number] 443 0734101 Methodi 12:00:00 00:28:[address] 3.430.2.7 Hospit a .3.252216 l .8 2021-11-13 2021-11-13 [facility] Manuel Martinez 1.2.840.1 [id number] 02314804 Methodi 08:00:00 23:59:[address] 3.430.2.7 Hospit a .3.595009 l .8 2021-11-13 2021-11-13 [facility] Manuel Martinez 1.2.840.1 [id number] 21 [id number] Methodi 08:00:00 23:59:[address] 3.430.2.7 Hospit a .3.045177 l .8 2021-11-13 2021-11-13 Infusion Manuel Martinez 1.2.840.1 [id number] 21 [id number] Methodi 11:15:00 14:15:[address] 3.430.2.7 Hospit a .3.308371 l .8 2021-11-13 2021-11-13 Infusion Manuel Martinez 1.2.840.1 [id number] 01497064 Methodi 11:15:00 14:15:[address] 3.430.2.7 Hospit a .3.436859 l .8 2021-11-13 2021-11-13 [facility] Manuel Martinez 1.2.840.1 [id number] 485 1417444 Methodi 00:00:00 00:00:[address] 3.430.2.7 Hospit a .3.535334 l .8 2021-11-13 2021-11-13 [facility] 1.2.840.1 1.2.255.928 4397 208257 Methodi 00:00:00 00:00:[address] 3.430.2.7 0.2.7.3.698 Ho spita .3.309929 084.8 l .8 2021-11-13 2021-11-13 [facility] Manuel Martinez 1.2.840.1 [id number] 392 [id number] Methodi 00:00:00 00:00:[address] 3.430.2.7 Hospit a .3.627999 l .8 2021-11-13 2021-11-13 Travel 1.2.840.1 1.2.799.983 3654 109604 Methodi 00:00:00 00:00:[address] 3.430.2.7 0.2.7.3.698 Ho spita .3.699963 084.8 l .8 2021-11-08 2021-11-08 Travel 1.2.840.1 1.2.193.830 4363 530569 Methodi 00:00:00 00:00:[address] 3.430.2.7 0.2.7.3.698 Ho spita .3.717617 084.8 l .8 2021-11-08 2021-11-08 Travel 1.2.840.1 1.2.147.775 8802 108169 Methodi 00:00:00 00:00:[address] 3.430.2.7 0.2.7.3.698 Ho spita .3.739652 084.8 l .8 2021-11-07 2021-11-07 Travel 1.2.840.1 1.2.529.764 0530 810376 Methodi 00:00:00 00:00:[address] 3.430.2.7 0.2.7.3.698 Ho spita .3.848545 084.8 l .8 2021-11-07 2021-11-07 Travel 1.2.840.1 1.2.065.485 4956 641593 Methodi 00:00:00 00:00:[address] 3.430.2.7 0.2.7.3.698 Ho spita .3.571393 084.8 l .8 2021-11-05 2021-11-05 Orders [place], 1.2.840.1 [id number] 462 [id number] Methodi 00:00:00 00:00:00 Only Margaret 93410.1.[address] 3.430.2.7 Hospit a .3.306282 l .8 2021-11-05 2021-11-05 Orders [place], 1.2.840.1 [id number] 956 4288655 Methodi 00:00:00 00:00:00 Only Margaret 05779.1.[address] 3.430.2.7 Hospit a .3.612897 l .8 2021-10-16 2021-10-26 Office Manuel Martinez 1.2.840.1 [id number] 240 4044615 Methodi 10:20:00 00:28:[address] 3.430.2.7 Hospit a .3.564607 l .8 2021-10-16 2021-10-16 Infusion Manuel Martinez 1.2.840.1 [id number] 21 [id number] Methodi 09:15:00 12:15:[address] 3.430.2.7 Hospit a .3.343588 l .8 2021-10-16 2021-10-16 Travel 1.2.840.1 1.2.661.913 3824 867876 Methodi 00:00:00 00:00:[address] 3.430.2.7 0.2.7.3.698 Ho spita .3.796110 084.8 l .8 2021-10-15 2021-10-15 Travel 1.2.840.1 1.2.275.981 6049 698940 Methodi 00:00:00 00:00:[address] 3.430.2.7 0.2.7.3.698 Ho spita .3.022642 084.8 l .8 2021-09-18 2021-09-18 Infusion Manuel Martinez 1.2.840.1 [id number] 21 [id number] Methodi 09:15:00 12:15:[address] 3.430.2.7 Hospit a .3.137346 l .8 2021-09-18 2021-09-18 Office Manuel Martinez 1.2.840.1 [id number] 928 1314825 Methodi 10:20:00 10:40:[address] 3.430.2.7 Hospit a .3.423691 l .8 2021-09-18 2021-09-18 Travel 1.2.840.1 1.2.932.100 3326 765820 Methodi 00:00:00 00:00:[address] 3.430.2.7 0.2.7.3.698 Ho spita .3.553412 084.8 l .8 2021-09-18 2021-09-18 Orders Manuel Martinez 1.2.840.1 [id number] 177 2739622 Methodi 00:00:00 00:00:[address] 3.430.2.7 Hospit a .3.014521 l .8 2021-09-14 2021-09-14 Travel 1.2.840.1 1.2.533.717 4548 589165 Methodi 00:00:00 00:00:[address] 3.430.2.7 0.2.7.3.698 Ho spita .3.623317 084.8 l .8 2021-08-21 2021-08-30 Office Manuel Martinez 1.2.840.1 [id number] 382 0315497 Methodi 10:20:00 01:31:[address] 3.430.2.7 Hospit a .3.456528 l .8 2021-08-21 2021-08-21 Infusion Manuel Martinez 1.2.840.1 [id number] 21 [id number] Methodi 09:15:00 12:15:[address] 3.430.2.7 Hospit a .3.024542 l .8 2021-08-21 2021-08-21 Travel 1.2.840.1 1.2.572.454 4646 385804 Methodi 00:00:00 00:00:[address] 3.430.2.7 0.2.7.3.698 Ho spita .3.173688 084.8 l .8 2021-08-20 2021-08-20 [facility] Manuel Martinez 1.2.840.1 [id number] 117 [id number] Methodi 00:00:00 00:00:[address] 3.430.2.7 Hospit a .3.555013 l .8 2021-08-17 2021-08-17 [facility] Manuel Martinez 1.2.840.1 [id number] 21 [id number] Methodi 11:09:03 23:59:[address] 3.430.2.7 Hospit a .3.137948 l .8 2021-08-17 2021-08-17 [facility] Manuel Martinez 1.2.840.1 [id number] 21 [id number] Methodi 09:33:37 11:08:[address] 3.430.2.7 Hospit a .3.877685 l .8 2021-08-17 2021-08-17 Travel 1.2.840.1 1.2.583.641 3069 034837 Methodi 00:00:00 00:00:[address] 3.430.2.7 0.2.7.3.698 Ho spita .3.519966 084.8 l .8 2021-07-24 2021-08-16 [facility] Manuel Martinez 1.2.840.1 [id number] 089 5470209 Methodi 10:20:00 01:12:[address] 3.430.2.7 Hospit a .3.745958 l .8 2021-08-10 2021-08-10 Travel 1.2.840.1 1.2.176.136 7224 038952 Methodi 00:00:00 00:00:[address] 3.430.2.7 0.2.7.3.698 Ho spita .3.224269 084.8 l .8 2021-08-07 2021-08-07 Travel 1.2.840.1 1.2.886.326 9321 632115 Methodi 00:00:00 00:00:[address] 3.430.2.7 0.2.7.3.698 Ho spita .3.191065 084.8 l .8 2021 2021 Travel 1.2.840.1 1.2.434.945 9358 661813 Methodi 00:00:00 00:00:[address] 3.430.2.7 0.2.7.3.698 Ho spita .3.323533 084.8 l .8 2021-08-02 2021-08-02 Eloise Guillermo, 1.2.840.1 [id number] 839 1226853 Methodi 00:00:00 00:00:00 Only Margaret 93442.1.[address] 3.430.2.7 Hospit a .3.418768 l .8 2021-07-24 2021-07-24 Infusion Manuel Martinez 1.2.840.1 [id number] 21 [id number] Methodi 09:15:00 12:15:[address] 3.430.2.7 Hospit a .3.764069 l .8 2021-07-24 2021-07-24 Travel 1.2.840.1 1.2.665.188 4515 121068 Methodi 00:00:00 00:00:[address] 3.430.2.7 0.2.7.3.698 Ho spita .3.542178 084.8 l .8 2021-07-23 2021-07-23 Orders Manuel Martinez 1.2.840.1 [id number] 961 0909433 Methodi 00:00:00 00:00:[address] 3.430.2.7 Hospit a .3.821290 l .8 2021-07-23 2021-07-23 Travel 1.2.840.1 1.2.637.966 5589 531240 Methodi 00:00:00 00:00:[address] 3.430.2.7 0.2.7.3.698 Ho spita .3.070154 084.8 l .8 2021-06-26 2021-06-26 Infusion Manuel Martinez 1.2.840.1 [id number] 21 [id number] Methodi 09:15:00 12:15:[address] 3.430.2.7 Hospit a .3.893130 l .8 2021-06-26 2021-06-26 Office Manuel Martinez 1.2.840.1 [id number] 283 6803267 Methodi 10:20:00 10:40:[address] 3.430.2.7 Hospit a .3.582755 l .8 2021-06-26 2021-06-26 Travel 1.2.840.1 1.2.831.803 2167 613787 Methodi 00:00:00 00:00:[address] 3.430.2.7 0.2.7.3.698 Ho spita .3.624154 084.8 l .8 2021-06-24 2021-06-24 Orders Manuel Martinze 1.2.840.1 [id number] 780 6951607 Methodi 00:00:00 00:00:[address] 3.430.2.7 Hospit a .3.563373 l .8 2021-06-21 2021-06-21 Travel 1.2.840.1 1.2.539.098 3553 063415 Methodi 00:00:00 00:00:[address] 3.430.2.7 0.2.7.3.698 Ho spita .3.048810 084.8 l .8 2021-06-01 2021-06-01 Telephone Carr, 1.2.840.1 [id number] 21 [id number] Methodi 00:00:00 00:00:[address] 3.430.2.7 Hospit a .3.957230 l .8 2021-06-01 2021-06-01 Orders Manuel Martinez 1.2.840.1 [id number] 070 9246216 Methodi 00:00:00 00:00:[address] 3.430.2.7 Hospit a .3.614717 l .8 2021-05-29 2021-05-29 Infusion Manuel Martinez 1.2.840.1 [id number] 21 [id number] Methodi 07:45:00 10:45:[address] 3.430.2.7 Hospit a .3.316714 l .8 2021-05-29 2021-05-29 Office Manuel Martinez 1.2.840.1 [id number] 383 2797159 Methodi 09:00:00 09:20:[address] 3.430.2.7 Hospit a .3.192104 l .8 2021-05-29 2021-05-29 Travel 1.2.840.1 1.2.046.469 2876 848662 Methodi 00:00:00 00:00:[address] 3.430.2.7 0.2.7.3.698 Ho spita .3.703921 084.8 l .8 2021-05-23 2021-05-23 Telephone Martinez Manuel 1.2.840.1 [id number] 2 [id number] Methodi 10:20:00 10:40:[address] 3.430.2.7 Hospit a .3.456199 l .8 2021-05-23 2021-05-23 Telephone [place] Manuel 1.2.840.1 [id number] 2 [id number] Methodi 00:00:00 00:00:[address] 3.430.2.7 Hospit a .3.592298 l .8 2021-05-22 2021-05-22 [facility] Martinez Manuel 1.2.840.1 [id number] 21 [id number] Methodi 09:30:00 23:59:[address] 3.430.2.7 Hospit a .3.511921 l .8 2021-05-22 2021-05-22 Travel 1.2.840.1 1.2.324.988 5558 662292 Methodi 00:00:00 00:00:[address] 3.430.2.7 0.2.7.3.698 spita .3.538211 084.8 l .8 2021-04-17 2021-04-28 [facility] Martinez Manuel 1.2.840.1 [id number] 770 [id number] Methodi 09:20:00 01:17:[address] 3.430.2.7 Hospit a .3.538112 l .8 2021-04-27 2021-04-27 Orders Provider, 1.2.840.1 [id number] 2099 966214 Methodi 00:00:00 00:00:00 Only Unknown 01618.1.[address] 3.430.2.7 Hospit a .3.789488 l .8 2021-04-26 2021-04-26 Travel 1.2.840.1 1.2.348.801 5476 051419 Methodi 00:00:00 00:00:[address] 3.430.2.7 0.2.7.3.698 Ho spita .3.343858 084.8 l .8 2021-04-26 2021-04-26 Orders [place], 1.2.840.1 [id number] 811 9334875 Methodi 00:00:00 00:00:00 Only Margaret 59339.1.[address] 3.430.2.7 Hospit a .3.857263 l .8 2021-04-26 2021-04-26 [facility] [place], 1.2.840.1 [id number] 996 8549520 Methodi 00:00:00 00:00:00 Only Margaret 99150.1.[address] 3.430.2.7 Hospit a .3.217682 l .8 2021-04-25 2021-04-25 Travel 1.2.840.1 1.2.484.396 4132 753962 Methodi 00:00:00 00:00:[address] 3.430.2.7 0.2.7.3.698 Ho spita .3.097114 084.8 l .8 2021-04-24 2021-04-24 Infusion Manuel Martinez 1.2.840.1 [id number] 21 [id number] Methodi 07:45:00 12:15:[address] 3.430.2.7 Hospit a .3.203494 l .8 2021-04-24 2021-04-24 Office Manuel Martinez 1.2.840.1 [id number] 675 9012204 Methodi 09:20:00 09:40:[address] 3.430.2.7 Hospit a .3.727657 l .8 2021-04-24 2021-04-24 [facility], 1.2.840.1 [id number] 49510 48011 Methodi 07:00:00 07:24:32 Alexsandra Tirado 73654.1.[address] 3.430.2.7 Hospit a .3.534228 l .8 2021-04-24 2021-04-24 Orders [place] 1.2.840.1 [id number] 02333933 Methodi 00:00:00 00:00:00 Only , Zara 45130.1.[address] 3.430.2.7 Hospit a .3.758572 l .8 2021-04-24 2021-04-24 Orders Carr, 1.2.840.1 [id number] 2099876 Methodi 00:00:00 00:00:00 Only Irma 72466.1.[address] 3.430.2.7 Hospit a .3.008115 l .8 2021-04-23 2021-04-23 Travel 1.2.840.1 1.2.124.370 8347 407653 Methodi 00:00:00 00:00:[address] 3.430.2.7 0.2.7.3.698 Ho spita .3.819255 084.8 l .8 2021-04-19 2021-04-19 [facility], 1.2.840.1 [id number] 06 Methodi 23:59:00 23:59:00 Encounter Marielena Tirado 35923.1.[address] 3.430.2.7 Hospit a .3.964913 l .8 2021-04-19 2021-04-19 [facility], 1.2.840.1 [id number] 61 Methodi 11:45:00 23:59:00 Encounter Marielena Tirado 91954.1.[address] 3.430.2.7 Hospit a .3.831809 l .8 2021-04-19 2021-04-19 [facility] 1.2.840.1 03476 1011 [id number] Methodi 11:15:00 12:14:05 Encounter Makayla Cuevas 53738.1.[address] 3.430.2.7 Hospit a .3.175238 l .8 2021-04-19 2021-04-19 Orders Manuel Martinez 1.2.840.1 [id number] 273 3738913 Methodi 00:00:00 00:00:[address] 3.430.2.7 Hospit a .3.412311 l .8 2021-04-19 2021-04-19 Travel 1.2.840.1 1.2.384.843 3763 657068 Methodi 00:00:00 00:00:[address] 3.430.2.7 0.2.7.3.698 Ho spita .3.301856 084.8 l .8 2021-04-17 2021-04-17 Infusion [place], Manuel 1.2.840.1 [id number] 21 [id number] Methodi 07:45:00 12:15:[address] 3.430.2.7 Hospit a .3.545705 l .8 2021-04-17 2021-04-17 Travel 1.2.840.1 1.2.349.642 9122 952873 Methodi 00:00:00 00:00:[address] 3.430.2.7 0.2.7.3.698 Ho spita .3.999329 084.8 l .8 2021-04-13 2021-04-13 [facility], 1.2.840.1 [id number] 18071 Methodi 11:30:00 14:00:12 Encounter Marielena Tirado 99087.1.[address] 3.430.2.7 Hospit a .3.149391 l .8 2021-04-12 [facility]04[facility].2.840.[facility] 54433 1011 [id number] Methodi 11:15:00 12:08:31 Encounter Stephani Marinelli 95402.1.[address] 3.430.2.7 Hospit a .3.472215 l .8 2021-04-11 2021-04-12 [facility], 1.2.840.1 [id number] 21001 05218 Methodi 01:00:00 01:11:26 Encounter Marielena Tirado 99795.1.[address] 3.430.2.7 Hospit a .3.009777 l .8 2021-04-12 2021-04-12 Travel 1.2.840.1 1.2.237.088 5711 770042 Methodi 00:00:00 00:00:[address] 3.430.2.7 0.2.7.3.698 Ho spita .3.254798 084.8 l .8 2021-04-11 2021-04-11 [facility], 1.2.840.1 [id number] Methodi 11:00:00 11:41:12 Encounter Marielena Tirado 84429.1.[address] 3.430.2.7 Hospit a .3.643722 l .8 2021-04-10 2021-04-10 Infusion Manuel Martinez 1.2.840.1 [id number] 21 [id number] Methodi 11:30:00 16:00:[address] 3.430.2.7 Hospit a .3.777405 l .8 2021-04-10 2021-04-10 Office Manuel Martinez 1.2.840.1 [id number] 624 8205360 Methodi 14:00:00 14:20:[address] 3.430.2.7 Hospit a .3.991100 l .8 2021-04-10 2021-04-10 [facility] 1.2.840.1 [id number] Methodi 10:00:00 10:18:[address] 3.430.2.7 Hospit a .3.613373 l .8 2021-04-10 2021-04-10 Orders Pending Sale To [facility], 1.2.840.1 [id number] 219752 3631 Methodi 00:00:00 00:00:00 Only Godgregorio 77950.1.1 [address] 3.430.2.7 Hospit a .3.443253 l .8 2021-04-10 2021-04-10 Orders Carr, 1.2.840.1 [id number] 2099 708370 Methodi 00:00:00 00:00:00 Only Irma 78590.1.[address] 3.430.2.7 Hospit a .3.665547 l .8 2021-04-10 2021-04-10 Orders [place], 1.2.840.1 [id number] 374466 0403 Methodi 00:00:00 00:00:00 Only Cecilio Miller 09578.1.[address] 3.430.2.7 Hospit a .3.674220 l .8 2021-04-10 2021-04-10 Orders Provider, 1.2.840.1 [id number] 2099 405267 Methodi 00:00:00 00:00:00 Only Unknown 79102.1.[address] 3.430.2.7 Hospit a .3.037172 l .8 2021-04-10 2021-04-10 Travel 1.2.840.1 1.2.555.115 5039 563522 Methodi 00:00:00 00:00:[address] 3.430.2.7 0.2.7.3.698 Ho spita .3.162587 084.8 l .8 2021-04-09 2021-04-09 [facility] 1.2.840.1 [id number] 50258 Methodi 10:58:48 11:12:[address] 3.430.2.7 Hospit a .3.801284 l .8 2021-04-09 2021-04-09 Orders Provider, 1.2.840.1 [id number] 2099 [id number] Methodi 00:00:00 00:00:00 Only Unknown 93153.1.[address] 3.430.2.7 Hospit a .3.224932 l .8 2021-04-04 2021-04-04 Hospital 1.2.840.1 [id number] 21001 94362 Methodi 10:10:51 10:46:[address] 3.430.2.7 Hospit a .3.574877 l .8 2021-04-04 2021-04-04 Travel 1.2.840.1 1.2.285.126 4388 442178 Methodi 00:00:00 00:00:[address] 3.430.2.7 0.2.7.3.698 Ho spita .3.080514 084.8 l .8 2021-04-04 2021-04-04 Orders Provider, 1.2.840.1 [id number] Methodi 00:00:00 00:00:00 Only Unknown 68434.1.[address] 3.430.2.7 Hospit a .3.134350 l .8 2021-04-03 2021-04-03 [facility] 1.2.840.1 [id number] 84925 18147 Methodi 23:59:00 23:59:00 Encounter Marielena YoMichael 92084.1.[address] 3.430.2.7 Hospit a .3.296551 l .8 2021-04-03 2021-04-03 [facility] 1.2.840.1 [id number] 11682 53400 Methodi 15:30:00 23:59:00 Encounter Marielena YoMichael 39559.1.[address] 3.430.2.7 Hospit a .3.955902 l .8 2021-04-03 2021-04-03 [facility] Marielena Tirado 1.2.840.1 45844 1011 [id number] Methodi 11:07:27 14:09:26 Encounter Stephani Marinelli 70337.1.[address] 3.430.2.7 Hospit a .3.204376 l .8 2021-04-03 2021-04-03 [facility] 1.2.840.1 [id number] 91365 20803 Methodi 10:27:11 10:52:[address] 3.430.2.7 Hospit a .3.474442 l .8 2021-04-03 2021-04-03 Orders Provider, 1.2.840.1 [id number] 2099 [id number] Methodi 00:00:00 00:00:00 Only Unknown 10607.1.[address] 3.430.2.7 Hospit a .3.817366 l .8 2021-04-02 2021-04-02 Office Manuel Martinez 1.2.840.1 [id number] 805 [id number] Methodi 09:20:00 14:41:[address] 3.430.2.7 Hospit a .3.646581 l .8 2021-04-02 2021-04-02 Infusion Manuel Martinez 1.2.840.1 [id number] Methodi 08:30:00 14:30:[address] 3.430.2.7 Hospit a .3.278149 l .8 2021-04-02 2021-04-02 Hospital 1.2.840.1 [id number] 72487 94352 Methodi 07:15:00 07:51:[address] 3.430.2.7 Hospit a .3.776919 l .8 2021-04-02 2021-04-02 Orders Manuel Martinez 1.2.840.1 [id number] 946 [id number] Methodi 00:00:00 00:00:[address] 3.430.2.7 Hospit a .3.753185 l .8 2021-04-02 2021-04-02 Travel 1.2.840.1 1.2.082.217 3326 033490 Methodi 00:00:00 00:00:[address] 3.430.2.7 0.2.7.3.698 Ho spita .3.632873 084.8 l .8 2021-04-02 2021-04-02 Orders Provider, 1.2.840.1 [id number] 2099 992180 Methodi 00:00:00 00:00:00 Only Unknown 92021.1.[address] 3.430.2.7 Hospit a .3.556342 l .8 2021-03-30 2021-03-30 [facility] 1.2.840.1 [id number] Methodi 10:07:02 10:51:[address] 3.430.2.7 Hospit a .3.443303 l .8 2021-03-30 2021-03-30 Orders Provider, 1.2.840.1 [id number] 2099 678146 Methodi 00:00:00 00:00:00 Only Unknown 14816.1.[address] 3.430.2.7 Hospit a .3.730837 l .8 2021-03-29 2021-03-29 [facility], 1.2.840.1 [id number] 27965 Methodi 12:15:00 23:59:00 Encounter Marielena RamMichael 48951.1.[address] 3.430.2.7 Hospit a .3.205980 l .8 2021-03-29 2021-03-29 [facility] Marielena Ram. 1.2.840.1 54722 1011 [id number] Methodi 11:13:18 12:51:37 Encounter Stephani Marinelli 99114.1.[address] 3.430.2.7 Hospit a .3.890861 l .8 2021-03-29 2021-03-29 [facility] 1.2.840.1 [id number] 06 Methodi 11:00:00 11:12:[address] 3.430.2.7 Hospit a .3.028918 l .8 2021-03-29 2021-03-29 Travel 1.2.840.1 1.2.246.948 8634 104613 Methodi 00:00:00 00:00:[address] 3.430.2.7 0.2.7.3.698 Ho spita .3.721597 084.8 l .8 2021-03-29 2021-03-29 Orders Provider, 1.2.840.1 [id number] 2099 280972 Methodi 00:00:00 00:00:00 Only Unknown 07930.1.[address] 3.430.2.7 Hospit a .3.744126 l .8 2021-03-28 2021-03-28 [facility] 1.2.840.1 [id number] 36148 12910 Methodi 10:03:08 10:14:[address] 3.430.2.7 Hospit a .3.799264 l .8 2021-03-28 2021-03-28 Orders Provider, 1.2.840.1 [id number] 2099 590073 Methodi 00:00:00 00:00:00 Only Unknown 93412.1.[address] 3.430.2.7 Hospit a .3.591156 l .8 2021-03-27 2021-03-27 [facility] 1.2.840.1 [id number] Methodi 14:52:55 15:51:[address] 3.430.2.7 Hospit a .3.702304 l .8 2021-03-26 2021-03-27 [facility] Ventura Navarrete 1.2.840.1 706131 2099 [id number] Methodi 17:45:00 14:05:00 Encounter Frances Kong 08353.1.[address] 3.430.2.7 Hospit a .3.052717 l .8 2021-03-27 2021-03-27 Orders Provider, 1.2.840.1 [id number] 2099 100737 Methodi 00:00:00 00:00:00 Only Unknown 92305.1.[address] 3.430.2.7 Hospit a .3.558195 l .8 2021-03-26 2021-03-26 Infusion Manuel Martinez 1.2.840.1 [id number] 21 [id number] Methodi 09:30:00 15:30:[address] 3.430.2.7 Hospit a .3.780696 l .8 2021-03-26 2021-03-26 Office Manuel Martinez 1.2.840.1 [id number] 163 [id number] Methodi 11:00:00 11:20:[address] 3.430.2.7 Hospit a .3.237704 l .8 2021-03-26 2021-03-26 Hospital 1.2.840.1 [id number] 29445 23514 Methodi 07:34:29 08:12:[address] 3.430.2.7 Hospit a .3.316430 l .8 2021-03-26 2021-03-26 Orders Carr, 1.2.840.1 [id number] 2100 944088 Methodi 00:00:00 00:00:00 Only Irma 59767.1.[address] 3.430.2.7 Hospit a .3.112599 l .8 2021-03-26 2021-03-26 Travel 1.2.840.1 1.2.180.913 2315 651343 Methodi 00:00:00 00:00:[address] 3.430.2.7 0.2.7.3.698 Ho spita .3.497219 084.8 l .8 2021-03-26 2021-03-26 Orders Provider, 1.2.840.1 [id number] 2099 569951 Methodi 00:00:00 00:00:00 Only Unknown 61727.1.[address] 3.430.2.7 Hospit a .3.282714 l .8 2021-03-25 2021-03-25 Orders Manuel Martinez 1.2.840.1 [id number] 649 [id number] Methodi 00:00:00 00:00:[address] 3.430.2.7 Hospit a .3.814320 l .8 2021-03-19 2021-03-24 Office Manuel Martinez 1.2.840.1 [id number] 608 [id number] Methodi 09:40:00 05:09:[address] 3.430.2.7 Hospit a .3.568123 l .8 2021-03-23 2021-03-23 [facility] 1.2.840.1 [id number] 82131 Methodi 10:46:03 11:00:[address] 3.430.2.7 Hospit a .3.313992 l .8 2021-03-23 2021-03-23 Travel 1.2.840.1 1.2.594.646 4200 373635 Methodi 00:00:00 00:00:[address] 3.430.2.7 0.2.7.3.698 Ho spita .3.162053 084.8 l .8 2021-03-23 2021-03-23 Orders Provider, 1.2.840.1 [id number] 2099 [id number] Methodi 00:00:00 00:00:00 Only Unknown 45555.1.[address] 3.430.2.7 Hospit a .3.530996 l .8 2021-03-22 2021-03-22 [facility] 1.2.840.1 [id number] 47107 Methodi 13:30:00 23:59:00 Encounter Marielena Tirado 40019.1.[address] 3.430.2.7 Hospit a .3.380405 l .8 2021-03-22 2021-03-22 [facility] Marielena Tirado 1.2.840.1 28150 1011 [id number] Methodi 10:52:49 13:07:42 Encounter Vicky Duff Etienne 19922.1.[address] Renan, [place] 3.430.2.7 Hospita .3.319812 l .8 2021-03-22 2021-03-22 [facility] 1.2.840.1 [id number] 21001 34257 Methodi 10:17:08 10:51:[address] 3.430.2.7 Hospit a .3.629442 l .8 2021-03-22 2021-03-22 Orders Provider, 1.2.840.1 [id number] 2099 [id number] Methodi 00:00:00 00:00:00 Only Unknown 33858.1.[address] 3.430.2.7 Hospit a .3.827203 l .8 2021-03-21 2021-03-21 Hospital Donta AlmendarezMichael 1.2.840.1 21385 1011 [id number] Methodi 11:02:29 15:39:48 Encounter Vicky Duff Etienne 37199.1.1 [facility]41 [facility] 3.430.2.7 Hospita .3.712963 l .8 2021-03-21 2021-03-21 [facility] 1.2.840.1 [id number] 13862 12790 Methodi 10:01:08 11:01:[address] 3.430.2.7 Hospit a .3.741822 l .8 2021-03-21 2021-03-21 [facility] 1.2.840.1 1.2.171.249 1071 059665 Methodi 00:00:00 00:00:[address] 3.430.2.7 0.2.7.3.698 Ho spita .3.216582 084.8 l .8 2021-03-21 2021-03-21 Orders Provider, 1.2.840.1 [id number] 2099 844908 Methodi 00:00:00 00:00:00 Only Unknown 49430.1.[address] 3.430.2.7 Hospit a .3.647553 l .8 2021-03-21 2021-03-21 Orders Madhu, 1.2.840.1 [id number] 292 [id number] Methodi 00:00:00 00:00:00 Only Manuel Mccormack 50801.1.[address] 3.430.2.7 Hospit a .3.014646 l .8 2021-03-21 2021-03-21 Orders Manuel Martinez 1.2.840.1 [id number] 944 [id number] Methodi 00:00:00 00:00:[address] 3.430.2.7 Hospit a .3.365735 l .8 2021-03-20 2021-03-20 Hospital 1.2.840.1 [id number] 21001 17002 Methodi 10:34:40 11:10:[address] 3.430.2.7 Hospit a .3.705934 l .8 2021-03-20 2021-03-20 Orders Provider, 1.2.840.1 [id number] 2099 530483 Methodi 00:00:00 00:00:00 Only Unknown 96677.1.[address] 3.430.2.7 Hospit a .3.796443 l .8 2021-03-19 2021-03-19 [facility] 1.2.840.1 [id number] Methodi 15:33:25 23:59:[address] 3.430.2.7 Hospit a .3.210789 l .8 2021-03-19 2021-03-19 Infusion Manuel Martinez 1.2.840.1 [id number] Methodi 08:15:00 14:15:[address] 3.430.2.7 Hospit a .3.607588 l .8 2021-03-19 2021-03-19 Orders Provider, 1.2.840.1 [id number] 2099 765458 Methodi 00:00:00 00:00:00 Only Unknown 63810.1.[address] 3.430.2.7 Hospit a .3.866899 l .8 2021-03-19 2021-03-19 Orders Manuel Martinez 1.2.840.1 [id number] 821 [id number] Methodi 00:00:00 00:00:[address] 3.430.2.7 Hospit a .3.742741 l .8 2021-03-19 2021-03-19 Documentat Lars, 1.2.840.1 [id number] 320 [id number] Methodi 00:00:00 00:00:00 ion Estella 00899.1.[address] 3.430.2.7 Hospit a .3.236440 l .8 2021-03-19 2021-03-19 Travel 1.2.840.1 1.2.743.031 8025 886125 Methodi 00:00:00 00:00:[address] 3.430.2.7 0.2.7.3.698 Ho spita .3.140349 084.8 l .8 2021-03-16 2021-03-16 [facility] 1.2.840.1 [id number] Methodi 10:38:06 11:03:[address] 3.430.2.7 Hospit a .3.831386 l .8 2021-03-16 2021-03-16 Orders [facility], 1.2.840.1 [id number] 2099 [id number] Methodi 00:00:00 00:00:00 Only Unknown 45837.1.[address] 3.430.2.7 Hospit a .3.099265 l .8 2021-03-15 2021-03-15 [facility] 1.2.840.1 [id number] 45621 96072 Methodi 12:30:00 23:59:00 Encounter Marielena MMichael 60526.1.[address] 3.430.2.7 Hospit a .3.758130 l .8 2021-03-15 2021-03-15 [facility] Marielena Tirado 1.2.840.1 36884 1011 [id number] Methodi 11:04:24 12:20:02 Encounter Stephani Marinelli 66548.1.[address] 3.430.2.7 Hospit a .3.262312 l .8 2021-03-15 2021-03-15 [facility] 1.2.840.1 [id number] Methodi 10:36:21 11:03:[address] 3.430.2.7 Hospit a .3.839977 l .8 2021-03-15 2021-03-15 Travel 1.2.840.1 1.2.860.498 3996 241983 Methodi 00:00:00 00:00:[address] 3.430.2.7 0.2.7.3.698 Ho spita .3.970710 084.8 l .8 2021-03-15 2021-03-15 Orders Provider, 1.2.840.1 [id number] [id number] Methodi 00:00:00 00:00:00 Only Unknown 44663.1.[address] 3.430.2.7 Hospit a .3.608167 l .8 2021-03-14 2021-03-14 [facility] 1.2.840.1 [id number] 21001 82304 Methodi 10:21:09 10:40:[address] 3.430.2.7 Hospit a .3.637172 l .8 2021-03-14 2021-03-14 Orders Provider, 1.2.840.1 [id number] 2099 428060 Methodi 00:00:00 00:00:00 Only Unknown 46729.1.[address] 3.430.2.7 Hospit a .3.046458 l .8 2021-03-13 2021-03-13 [facility] 1.2.840.1 [id number] 67364 Methodi 11:00:00 11:22:[address] 3.430.2.7 Hospit a .3.734892 l .8 2021-03-12 2021-03-13 [facility] 1.2.840.1 [id number] 46940 28635 Methodi 01:00:00 05:01:41 Encounter Marielena Tirado 16653.1.[address] 3.430.2.7 Hospit a .3.604973 l .8 2021-03-13 2021-03-13 Orders Provider, 1.2.840.1 [id number] 2099 573248 Methodi 00:00:00 00:00:00 Only Unknown 85146.1.[address] 3.430.2.7 Hospit a .3.304675 l .8 2021-03-12 2021-03-12 Infusion Manuel Martinez 1.2.840.1 [id number] 21 [id number] Methodi 08:15:00 14:15:[address] 3.430.2.7 Hospit a .3.916809 l .8 2021-03-12 2021-03-12 Office Manuel Martinez 1.2.840.1 [id number] 309 [id number] Methodi 09:40:00 10:00:[address] 3.430.2.7 Hospit a .3.842805 l .8 2021-03-12 2021-03-12 [facility] 1.2.840.1 [id number] Methodi 07:30:00 07:51:01 Alexsandra Marielena RamMichael 15771.1.[address] 3.430.2.7 Hospit a .3.196799 l .8 2021-03-12 2021-03-12 Documentat Sousa, 1.2.840.1 [id number] 174 [id number] Methodi 00:00:00 00:00:00 ion Estella 96322.1.[address] 3.430.2.7 Hospit a .3.358872 l .8 2021-03-12 2021-03-12 Travel 1.2.840.1 1.2.614.956 4796 800128 Methodi 00:00:00 00:00:[address] 3.430.2.7 0.2.7.3.698 Ho spita .3.470020 084.8 l .8 2021-03-12 2021-03-12 Orders [facility], 1.2.840.1 [id number] Methodi 00:00:00 00:00:00 Only Unknown 03127.1.[address] 3.430.2.7 Hospit a .3.827483 l .8 2021-03-11 2021-03-11 Orders Manuel Martinez 1.2.840.1 [id number] 875 8866084 Methodi 00:00:00 00:00:[address] 3.430.2.7 Hospit a .3.343982 l .8 2021-03-08 2021-03-08 Travel 1.2.840.1 1.2.625.668 5095 999636 Methodi 00:00:00 00:00:[address] 3.430.2.7 0.2.7.3.698 Ho spita .3.877718 084.8 l .8 2021-03-07 2021-03-07 Nurse Only Rosacina, 1.2.840.1 [id number] 2 [id number] Methodi 00:00:00 00:00:[address] 3.430.2.7 Hospit a .3.113597 l .8 2021-03-07 2021-03-07 Orders Rosacina, 1.2.840.1 [id number] Methodi 00:00:00 00:00:00 Only Merlessa 30470.1.[address] 3.430.2.7 Hospit a .3.445929 l .8 2021-03-05 2021-03-05 Infusion Manuel Martinez 1.2.840.1 [id number] 21 [id number] Methodi 08:15:00 14:15:[address] 3.430.2.7 Hospit a .3.994168 l .8 2021-03-05 2021-03-05 Office Manuel Martinez 1.2.840.1 [id number] 238 [id number] Methodi 09:40:00 10:00:[address] 3.430.2.7 Hospit a .3.886152 l .8 2021-03-05 2021-03-05 Oncology Vásquez, 1.2.840.1 [id number] 2099 908946 Methodi 00:00:00 00:00:00 [facility] Evgeny 35835.1.1 774 s t ip 3.430.2.7 Hospit a .3.923470 l .8 2021-03-05 2021-03-05 Travel 1.2.840.1 1.2.325.556 1205 938555 Methodi 00:00:00 00:00:[address] 3.430.2.7 0.2.7.3.698 Ho spita .3.799520 084.8 l .8 2021-03-02 2021-03-02 Travel 1.2.840.1 1.2.513.051 5856 660315 Methodi 00:00:00 00:00:[address] 3.430.2.7 0.2.7.3.698 Ho spita .3.911051 084.8 l .8 2021-02-27 2021-02-27 [facility] Epifanio, 1.2.840.1 [id number] 70950 Methodi 00:00:00 00:00:00 Work Yanni 87823.1.[address] 3.430.2.7 Hospit a .3.786053 l .8 2021-02-26 2021-02-26 Infusion Manuel Martinez 1.2.840.1 [id number] Methodi 09:00:00 15:00:[address] 3.430.2.7 Hospit a .3.637201 l .8 2021-02-26 2021-02-26 [facility] 1.2.840.1 [id number] 98258 54159 Methodi 12:00:00 12:45:13 Encounter Marielena Tirado 95564.1.[address] 3.430.2.7 Hospit a .3.735422 l .8 2021-02-26 2021-02-26 [facility] Marielena Ram. 1.2.840.1 84159 1189 [id number] Methodi 10:15:00 10:59:00 Encounter Artem Urrutia 24324.1.[address] 3.430.2.7 Hospit a .3.817945 l .8 2021-02-26 2021-02-26 Office Manuel Martinez 1.2.840.1 [id number] 268 [id number] Methodi 10:00:00 10:20:[address] 3.430.2.7 Hospit a .3.954706 l .8 2021-02-26 2021-02-26 Documentat Jossue 1.2.840.1 [id number] Methodi 00:00:00 00:00:00 Zara meyer 72914.1.[address] 3.430.2.7 Hospit a .3.161842 l .8 2021-02-26 2021-02-26 Travel 1.2.840.1 1.2.186.286 4921 573887 Methodi 00:00:00 00:00:[address] 3.430.2.7 0.2.7.3.698 Ho spita .3.742206 084.8 l .8 2021-02-22 2021-02-22 [facility] Manuel Martinez 1.2.840.1 [id number] 21 [id number] Methodi 06:58:27 23:59:[address] 3.430.2.7 Hospit a .3.812764 l .8 2021-02-22 2021-02-22 Travel 1.2.840.1 1.2.986.027 5067 500578 Methodi 00:00:00 00:00:[address] 3.430.2.7 0.2.7.3.698 Ho spita .3.484625 084.8 l .8 2021-02-19 2021-02-20 [facility] 1.2.840.1 [id number] 18037 56198 Methodi 01:00:00 04:58:29 Encounter Marielena Tirado 11289.1.[address] 3.430.2.7 Hospit a .3.496315 l .8 2021-02-20 2021-02-20 Telephone Audi, 1.2.840.1 [id number] 2099 478137 Methodi 00:00:00 00:00:00 Marielena Tirado 71616.1.[address] 3.430.2.7 Hospit a .3.182914 l .8 2021-02-19 2021-02-19 Travel 1.2.840.1 1.2.520.794 1281 476291 Methodi 00:00:00 00:00:[address] 3.430.2.7 0.2.7.3.698 Ho spita .3.514167 084.8 l .8 2021-02-19 2021-02-19 Eloise Guillermo, 1.2.840.1 [id number] 812 5297722 Methodi 00:00:00 00:00:00 Only Margaret 85852.1.[address] 3.430.2.7 Hospit a .3.658030 l .8 2021-02-15 2021-02-15 Telephone Audi, 1.2.840.1 [id number] 2100 [id number] Methodi 00:00:00 00:00:00 Marielena Tirado [address]507.1.[address] 3.430.2.7 Hospit a .3.921149 l .8 2021-02-15 2021-02-15 Travel 1.2.840.1 1.2.417.353 0225 936588 Methodi 00:00:00 00:00:[address] 3.430.2.7 0.2.7.3.698 Ho spita .3.095124 084.8 l .8 2021-02-07 2021-02-14 Office Manuel Martinez 1.2.840.1 [id number] 113 [id number] Methodi 11:20:00 07:01:[address] 3.430.2.7 Hospit a .3.077880 l .8 2021-02-14 2021-02-14 Eloise Guillermo 1.2.840.1 [id number] 418 [id number] Methodi 00:00:00 00:00:00 Only Margaret 65769.1.[address] 3.430.2.7 Hospit a .3.595036 l .8 2021-02-12 2021-02-12 Travel 1.2.840.1 1.2.205.807 9034 387698 Methodi 00:00:00 00:00:[address] 3.430.2.7 0.2.7.3.698 Ho spita .3.985887 084.8 l .8 2021-02-09 2021-02-09 Orders Manuel Martinez 1.2.840.1 [id number] 844 [id number] Methodi 00:00:00 00:00:[address] 3.430.2.7 Hospit a .3.064015 l .8 2021-02-09 2021-02-09 Orders Sri, 1.2.840.1 [id number] 047235 2072 Methodi 00:00:00 00:00:00 Only Deanna 05094.1.[address] 3.430.2.7 Hospit a .3.785987 l .8 2021-02-08 2021-02-08 Orders Ezra Banks, 1.2.840.1 [id number] 74681 Methodi 00:00:00 00:00:00 Only Ember 60740.1.[address] 3.430.2.7 Hospit a .3.719480 l .8 2021-02-07 2021-02-07 [facility] Manuel Martinez 1.2.840.1 [id number] 21 [id number] Methodi 09:30:00 23:59:[address] 3.430.2.7 Hospit a .3.256464 l .8 2021-02-07 2021-02-07 Travel 1.2.840.1 1.2.163.444 7603 889406 Methodi 00:00:00 00:00:[address] 3.430.2.7 0.2.7.3.698 Ho spita .3.856543 084.8 l .8 2021-02-06 2021-02-06 Telephone Delfino, 1.2.840.1 [id number] 2099 686741 Methodi 00:00:00 00:00:[address] 3.430.2.7 Hospit a .3.384543 l .8 2021-02-05 2021-02-05 Telephone Conner, 1.2.840.1 [id number] 2099 705272 Methodi 00:00:00 00:00:00 Lotti Maurice 40529.1.1 300 [address] t 3.430.2.7 Hospit a .3.618750 l .8 2021-02-04 2021-02-04 Orders Manuel Martinez 1.2.840.1 [id number] 028 2626425 Methodi 00:00:00 00:00:[address] 3.430.2.7 Hospit a .3.971981 l .8 2021-01-25 2021-02-01 [facility] [place], 1.2.840.1 [id number] [id number] 1233 Methodi 11:30:00 08:02:08 Donta Rodriguez 14406.1.[address] 3.430.2.7 Hospit a .3.825982 l .8 2021-01-29 2021-01-29 [facility], 1.2.840.1 [id number] 94887 58607 Methodi 09:21:00 17:47:00 Encounter Donta CantrellHMichael 91732.1.[address] 3.430.2.7 Hospit a .3.788306 l .8 2021-01-29 2021-01-29 [facility], 1.2.840.1 [id number] 857155 2206 Methodi 14:20:00 16:30:00 [address] 3.430.2.7 Hospit a .3.169994 l .8 2021-01-29 2021-01-29 Anesthesia NelsonHugh 1.2.840.1 1040 86950 [id number] Methodi 13:05:00 14:57:00 Event Lata Chowdary 28603.1.[address] 3.430.2.7 Hospit a .3.718654 l .8 2021-01-29 2021-01-29 Travel 1.2.840.1 1.2.712.846 9136 544680 Methodi 00:00:00 00:00:[address] 3.430.2.7 0.2.7.3.698 Ho spita .3.418595 084.8 l .8 2021-01-25 2021-01-25 Office Adalid 1.2.840.1 [id number] 031335 9154 Methodi 10:00:00 10:53:07 Visit Donta Rodriguez 10782.1.[address] 3.430.2.7 Hospit a .3.138641 l .8 2021-01-25 2021-01-25 Travel 1.2.840.1 1.2.044.493 7269 815177 Methodi 00:00:00 00:00:[address] 3.430.2.7 0.2.7.3.698 Ho spita .3.329978 084.8 l .8 2021-01-24 2021-01-24 Abstract Levi 1.2.840.1 [id number] 2100 [address]8810 Methodi 00:00:00 00:00:[address] 3.430.2.7 Hospit a .3.165353 l .8 2021-01-24 2021-01-24 Telephone Manuel Martinez 1.2.840.1 [id number] 2 [id number] Methodi 00:00:00 00:00:[address] 3.430.2.7 Hospit a .3.407193 l .8 2021-01-10 2021-01-10 [facility] 2100 [id number] [place] 00:00:00 00:00:[address] 2021-01-10 2021-01-10 [facility] 2100 [id number] [place] 00:00:00 00:00:[address] 2021-01-05 2021-01-05 [facility] 2100 [id number] [place] 00:00:00 00:00:[address] 2020-12-13 2020-12-13 [facility] 2100 [id number] [place] 00:00:00 00:00:[address] 2020-12-13 2020-12-13 [facility] 2100 [id number] [place] 00:00:00 00:00:[address] 2020-12-06 2020-12-06 [facility] 2100 [id number] [place] 00:00:00 00:00:[address] 2020-11-15 2020-11-15 [facility] 2100 [id number] [place] 00:00:00 00:00:[address] 2020-11-15 2020-11-15 [facility] 2100 [id number] [place] 00:00:00 00:00:[address] 2020-10-18 2020-10-18 Out[facility] 2100 [id number] [place] 00:00:00 00:00:[address] 2020-10-18 2020-10-18 Out[facility] 2100 [id number] [place] 00:00:00 00:00:[address] 2020-09-20 2020-09-20 [facility] 2100 [id number] [place] 00:00:00 00:00:[address] 2020-09-20 2020-09-20 [facility] 2100 [id number] [place] 00:00:00 00:00:[address] 2020-09-01 2020-09-01 [facility] 2100 [id number] [place] 00:00:00 00:00:[address] 2020-08-232020-08-23 Outpatient MANUEL MARTINEZ [facility] 2100 [id number] [place] 00:00:00 00:00:[address] 2020-08-23 2020-08-23 Outpatient MANUEL MARTINEZ [facility] 2100 [id number] [place] 00:00:00 00:00:[address] 2020-07-26 2020-07-26 Outpatient MANUEL MARTINEZ [facility] 2100 [id number] [place] 00:00:00 00:00:[address] 2020-07-26 2020-07-26 Outpatient MANUEL MARTINEZ [facility] 2100 [id number] [place] 00:00:00 00:00:[address] 2020-06-30 2020-07-14 Outpatient MANUEL MARTINEZ [facility] 2100 [id number] [place] 00:00:00 00:00:[address] 2020-06-28 2020-06-28 Outpatient MANUEL MARTINEZ [facility] 2100 [id number] [place] 00:00:00 00:00:[address] 2020-06-28 2020-06-28 Outpatient MANUEL MARTINEZ [facility] 2100 [id number] [place] 00:00:00 00:00:[address] 2020-05-31 2020-05-31 Outpatient MANUEL MARTINEZ [facility] 2100 [id number] [place] 00:00:00 00:00:[address] 2020-05-31 2020-05-31 Outpatient MANUEL MARTINEZ [facility] 2100 [id number] [place] 00:00:00 00:00:[address] 2020-05-29 2020-05-29 Outpatient MANUEL MARTINEZ [facility] 2100 [id number] [place] 00:00:00 00:00:[address] 2020-05-03 2020-05-03 Outpatient MANUEL MARTINEZ [facility] 2100 [id number] [place] 00:00:00 00:00:[address] 2020-05-03 2020-05-03 Outpatient MANUEL MARTINEZ [facility] 2100 [id number] [place] 00:00:00 00:00:[address] 2020-04-04 2020-04-04 Outpatient MANUEL MARTINEZ [facility] 2100 [id number] [place] 00:00:00 00:00:[address] 2020-04-04 2020-04-04 Outpatient MARTINEZ, [facility] 2100 [id number] [place] 00:00:00 00:00:[address] 2020-03-16 2020-03-16 Outpatient MARTINEZ, [facility] 2100 [id number] [place] 00:00:00 00:00:[address] 2020-03-08 2020-03-08 Outpatient MARTINEZ, [facility] 2100 [id number] [place] 00:00:00 00:00:[address] 2020-03-08 2020-03-08 Outpatient MARTINEZ, [facility] 2100 [id number] [place] 00:00:00 00:00:[address] 2020-02-09 2020-02-09 Outpatient MARTINEZ, [facility] 2100 [id number] [place] 00:00:00 00:00:[address] 2020-02-09 2020-02-09 Outpatient MARTINEZ, [facility] 2100 [id number] [place] 00:00:00 00:00:[address] 2020-01-12 2020-01-12 Outpatient MARTINEZ, [facility] 2100 [id number] [place] 00:00:00 00:00:[address] 2020-01-12 2020-01-12 Outpatient MARTINEZ, [facility] 2100 [id number] [place] 00:00:00 00:00:[address] 2020-01-11 2020-01-11 Outpatient MARTINEZ, [facility] 2100 [id number] [place] 00:00:00 00:00:[address] 2019-12-22 2019-12-22 Outpatient MARTINEZ, [facility] 2100 [id number] [place] 00:00:00 00:00:[address] 2019-12-15 2019-12-15 Outpatient MARTINEZ, [facility] 2100 [id number] [place] 00:00:00 00:00:[address] 2019-12-15 2019-12-15 Outpatient MARTINEZ, [facility] 2100 [id number] [place] 00:00:00 00:00:[address] 2019-12-15 2019-12-15 Outpatient MARTINEZ, [facility] [id number] [id number] [place] 00:00:00 00:00:[address] 2019-12-02 2019-12-02 Outpatient MARTINEZ, [facility] 2100 [id number] [place] 00:00:00 00:00:[address] 2019-11-17 2019-11-17 Outpatient MANUEL MARTINEZ [facility] [id number] [place] 00:00:00 00:00:[address] 2019-11-17 2019-11-17 Outpatient MANUEL MARTINEZ [facility] [id number] [place] 00:00:00 00:00:[address] 2019-11-03 2019-11-03 Outpatient MADHU [facility] [id number] [place] 00:00:00 00:00:00 MANUEL [address] [facility] 2019-10-20 2019-10-20 Outpatient MANUEL MARTINEZ [facility] [id number] [place] 00:00:00 00:00:[address] 2019-10-20 2019-10-20 Outpatient MANUEL MARTINEZ [facility] [id number] [place] 00:00:00 00:00:[address] 2019-10-13 2019-10-13 Outpatient AUDI, [facility] [id number] [place] 00:00:00 00:00:00 MARIELENA [address] 2019-10-13 2019-10-13 Outpatient FARACH, [facility] [id number] 237 [place] 00:00:00 00:00:00 MARIELENA [address] 2019-10-13 2019-10-13 Outpatient FARACH, [facility] [id number] 516 [place] 00:00:00 00:00:00 MARIELENA [address] 2019-10-11 2019-10-12 Outpatient FARACH, [facility] [id number] [place] 00:00:00 00:00:00 MARIELENA [address] 2019-10-11 2019-10-11 Outpatient FARACH, [facility] [id number] [place] 00:00:00 00:00:00 MARIELENA [address] 2019-10-08 2019-10-08 Outpatient FARACH, [facility] [id number] [place] 00:00:00 00:00:00 MARIELENA [address] 2019-10-08 2019-10-08 Outpatient FARACH, [facility] [id number] [place] 00:00:00 00:00:00 MARIELENA [address] 2019-10-06 2019-10-06 Outpatient FARACH, [facility] [id number] [place] 00:00:00 00:00:00 MARIELENA [address] 2019-10-05 2019-10-05 Outpatient FARACH, [facility] [id number] [place] 00:00:00 00:00:00 MARIELENA [address] 2019-09-29 2019-09-29 Outpatient LUBNA, [facility] 2100 [id number] [place] 00:00:00 00:00:[address] 2019-09-29 2019-09-29 Outpatient MARTINEZ, [facility] 2100 [id number] [place] 00:00:00 00:00:[address] 2019-09-29 2019-09-29 Outpatient LUBNA, [facility] 2100 [id number] [place] 00:00:00 00:00:[address] 2019-09-29 2019-09-29 Outpatient LUBNA, [facility] 2100 [id number] [place] 00:00:00 00:00:[address] 2019-09-29 2019-09-29 Outpatient FARACH, [facility] [id number] [place] 00:00:00 00:00:00 MARIELENA [address] 2019-09-23 2019-09-23 Outpatient FARACH, [facility] [id number] [place] 00:00:00 00:00:00 MARIELENA [address] 2019-09-20 2019-09-21 Outpatient FARACH, [facility] [id number] 239 [place] 00:00:00 00:00:00 MARIELENA [address] 2019-09-20 2019-09-20 Outpatient LUBNA, [facility] 2100 [id number] [place] 00:00:00 00:00:[address] 2019-09-20 2019-09-20 Outpatient FARACH, [facility] [id number] 239 [place] 00:00:00 00:00:00 MARIELENA [address] 2019-09-10 2019-09-11 Outpatient FARACH, [facility] [id number] [place] 00:00:00 00:00:00 MARIELENA [address] 2019-09-02 2019-09-02 Outpatient CORDOBA, [facility] [id number] [place] 00:00:00 00:00:00 EDWARD [address] 2019-08-24 2019-08-24 Outpatient CORDOBA, [facility] [id number] [place] 00:00:00 00:00:00 EDWARD [address] 2019-08-02 2019-08-02 Outpatient CORDOBA, [facility] [id number] 125 [place] 00:00:00 00:00:00 EDWARD [address] 2019-07-20 2019-07-20 Outpatient CORDOBA, [place] [id number] 911 [place] 00:00:00 00:00:00 EDWARD [address] 2019-07-08 2019-07-08 Outpatient CORDOBA, [facility] [id number] [place] 00:00:00 00:00:00 EDWARD [address] 2019-07-08 2019-07-08 Outpatient CORDOBA, [facility] [id number] 364 [place] 00:00:00 00:00:00 EDWARD [address] 2019-07-08 2019-07-08 Outpatient CORDOBA, [facility] [id number] 646 [place] 00:00:00 00:00:00 EDWARD [address] 2019-07-08 2019-07-08 Outpatient CORDOBA, [facility] [id number] 650 [place] 00:00:00 00:00:00 EDWARD [address] Results Test Description Test Time Test Comments Results Result Comments Source RAD ONC DAILY TREATMENT 2022-07-26 15:22:25 Test Item Value Reference Range Interpretation Comme nts Course ID (test code = 5706) C4 Course Start Date (test code = 5707) 2022-07-08 @14:51 Treatment Elapsed Days (test code = 5709) 10 Course Intent (test code = 5686) Curative w/chemo Treatment Dates (test code = 5685) First Treatment Date: 2022-07-16 @14:30Last Treatment Date: 2022-07-26 @10:14 Reference Point ID (test code = 5710) Liver Dosage Given to Date in Gy (test code = 50 5711) Session Dosage Given in Gy (test code = 10 5712) Plan ID (test code = 5713) Liver Plan Name (test code = 5714) Liver Fractions Treated to Date (test code = 5 of 5 5715) Prescribed Dose Per Fraction in Gy (test 10 code = 5716) Prescription Dose in cGy (test code = 5000 5717) [facility] DAILY [id number] 18:21:01 Test Item Value Reference Range Interpretation Comments Course ID (test code = C4 5706) Course Start Date (test 2022-07-08 @14:51 code = 5707) Treatment Elapsed Days 8 (test code = 5709) Course Intent (test code Curative w/chemo = 5686) Treatment Dates (test First Treatment Date: code = 5685) 2022-07-16 @14:30Last Treatment Date: 2022-07-24 @13:12 Reference Point ID (test Liver code = 5710) Dosage Given to Date in 40 Gy (test code = 5711) Session Dosage Given in 10 Gy (test code = 5712) Plan ID (test code = Liver 5713) Plan Name (test code = Liver 5714) Fractions Treated to 4 of 5 Date (test code = 5715) Prescribed Dose Per 10 Fraction in Gy (test code = 5716) Prescription Dose in cGy 5000 (test code = 5717) [facility] DAILY [id number] 18:26:14 Test Item Value Reference Range Interpretation Comments Course ID (test code = C4 5706) Course Start Date (test 2022-07-08 @14:51 code = 5707) Treatment Elapsed Days 6 (test code = 5709) Course Intent (test code Curative w/chemo = 5686) Treatment Dates (test First Treatment Date: code = 5685) 2022-07-16 @14:30Last Treatment Date: 2022-07-22 @13:18 Reference Point ID (test Liver code = 5710) Dosage Given to Date in 30 Gy (test code = 5711) Session Dosage Given in 10 Gy (test code = 5712) Plan ID (test code = Liver 5713) Plan Name (test code = Liver 5714) Fractions Treated to 3 of 5 Date (test code = 5715) Prescribed Dose Per 10 Fraction in Gy (test code = 5716) Prescription Dose in cGy 5000 (test code = 5717) [facility] DAILY [id number] 19:49:09 Test Item Value Reference Range Interpretation Comments Course ID (test code = C4 5706) Course Start Date (test 2022-07-08 @14:51 code = 5707) Treatment Elapsed Days 2 (test code = 5709) Course Intent (test code Curative w/chemo = 5686) Treatment Dates (test First Treatment Date: code = 5685) 2022-07-16 @14:30Last Treatment Date: 2022-07-18 @13:41 Reference Point ID (test Liver code = 5710) Dosage Given to Date in 20 Gy (test code = 5711) Session Dosage Given in 10 Gy (test code = 5712) Plan ID (test code = Liver 5713) Plan Name (test code = Liver 5714) Fractions Treated to 2 of 5 Date (test code = 5715) Prescribed Dose Per 10 Fraction in Gy (test code = 5716) Prescription Dose in cGy 5000 (test code = 5717) [facility] DAILY [id number] 20:40:34 Test Item Value Reference Range Interpretation Comments Course ID (test code = C4 5706) Course Start Date (test 2022-07-08 @14:51 code = 5707) Treatment Elapsed Days 0 (test code = 5709) Course Intent (test code Curative w/chemo = 5686) Treatment Dates (test First Treatment Date: code = 5685) 2022-07-16 @14:30Last Treatment Date: 2022-07-16 @14:32 Reference Point ID (test Liver code = 5710) Dosage Given to Date in 10 Gy (test code = 5711) Session Dosage Given in 10 Gy (test code = 5712) Plan ID (test code = Liver 5713) Plan Name (test code = Liver 5714) Fractions Treated to 1 of 5 Date (test code = 5715) Prescribed Dose Per 10 Fraction in Gy (test code = 5716) Prescription Dose in cGy 5000 (test code = 5717) [facility] [id number] 16:28:00 Test Item Value Reference Range Interpretation Comments POC glucose (test code 108 mg/dL 65-99 H Opera tor Name: Casanova = [id number]) BlaineDevice ID : [id number] able: [facility] 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 Interpretation Abnormal (test code = 74017-0) [facility] ON[facility] COURSE [id number] 14:20:15 Test Item Value Reference Range Interpretation Comments Course ID (test code = C3 5706) Course Start Date (test 2022-01-18 @16:41 code = 5707) Treatment Elapsed Days 41 (test code = 5709) Course Intent (test code Curative = 5686) Treatment Dates (test Course End Date: code = 5685) 2022-03-20 @08:19First Treatment Date: 2022-02-05 @16:32Last Treatment Date: 2022-03-18 @14:07 Reference Point ID (test Subcarina code = 5710) Dosage Given to Date in 60.2371097 Gy (test code = 5711) Plan ID (test code = Subcarina 5713) Plan Name (test code = Subcarina 5714) Fractions Treated to Date (test code = 5715) Prescribed Dose Per 2 Fraction in Gy (test code = 5716) Prescription Dose in cGy 6000 (test code = 5717) [facility] DAILY [id number] 20:08:59 Test Item Value Reference Range Interpretation Comments Course ID (test code = C3 5706) Course Start Date (test 2022-01-18 @16:41 code = 5707) Treatment Elapsed Days 41 (test code = 5709) Course Intent (test code Curative = 5686) Treatment Dates (test First Treatment Date: code = 5685) 2022-02-05 @16:32Last Treatment Date: 2022-03-18 @14:07 Reference Point ID (test Subcarina code = 5710) Dosage Given to Date in 60.8586353 Gy (test code = 5711) Session Dosage Given in 2.46460595 Gy (test code = 5712) Plan ID (test code = Subcarina 5713) Fractions Treated to Date (test code = 5715) Prescribed Dose Per 2 Fraction in Gy (test code = 5716) Prescription Dose in cGy 6000 (test code = 5717) [facility] DAILY [id number] 17:27:33 Test Item Value Reference Range Interpretation Comments Course ID (test code = C3 5706) Course Start Date (test 2022-01-18 @16:41 code = 5707) Treatment Elapsed Days 38 (test code = 5709) Course Intent (test code Curative = 5686) Treatment Dates (test First Treatment Date: code = 5685) 2022-02-05 @16:32Last Treatment Date: 2022-03-15 @12:25 Reference Point ID (test Subcarina code = 5710) Dosage Given to Date in 58.22221608 Gy (test code = 5711) Session Dosage Given in 2.53537161 Gy (test code = 5712) Plan ID (test code = Subcarina 5713) Fractions Treated to Date (test code = 5715) Prescribed Dose Per 2 Fraction in Gy (test code = 5716) Prescription Dose in cGy 6000 (test code = 5717) [facility] DAILY [id number] 18:20:49 Test Item Value Reference Range Interpretation Comments Course ID (test code = C3 5706) Course Start Date (test 2022-01-18 @16:41 code = 5707) Treatment Elapsed Days 37 (test code = 5709) Course Intent (test code Curative = 5686) Treatment Dates (test First Treatment Date: code = 5685) 2022-02-05 @16:32Last Treatment Date: 2022-03-14 @13:18 Reference Point ID (test Subcarina code = 5710) Dosage Given to Date in 56.16130666 Gy (test code = 5711) Session Dosage Given in 2.48558128 Gy (test code = 5712) Plan ID (test code = Subcarina 5713) Fractions Treated to Date (test code = 5715) Prescribed Dose Per 2 Fraction in Gy (test code = 5716) Prescription Dose in cGy 6000 (test code = 5717) [facility] DAILY [id number] 18:51:26 Test Item Value Reference Range Interpretation Comments Course ID (test code = C3 5706) Course Start Date (test 2022-01-18 @16:41 code = 5707) Treatment Elapsed Days 36 (test code = 5709) Course Intent (test code Curative = 5686) Treatment Dates (test First Treatment Date: code = 5685) 2022-02-05 @16:32Last Treatment Date: 2022-03-13 @13:49 Reference Point ID (test Subcarina code = 5710) Dosage Given to Date in 54.35650210 Gy (test code = 5711) Session Dosage Given in 2.04631897 Gy (test code = 5712) Plan ID (test code = Subcarina 5713) Fractions Treated to Date (test code = 5715) Prescribed Dose Per 2 Fraction in Gy (test code = 5716) Prescription Dose in cGy 6000 (test code = 5717) [facility] DAILY [id number] 18:43:10 Test Item Value Reference Range Interpretation Comments Course ID (test code = C3 5706) Course Start Date (test 2022-01-18 @16:41 code = 5707) Treatment Elapsed Days 35 (test code = 5709) Course Intent (test code Curative = 5686) Treatment Dates (test First Treatment Date: code = 5685) 2022-02-05 @16:32Last Treatment Date: 2022-03-12 @13:41 Reference Point ID (test Subcarina code = 5710) Dosage Given to Date in 52.30686520 Gy (test code = 5711) Session Dosage Given in 2.58412707 Gy (test code = 5712) Plan ID (test code = Subcarina 5713) Fractions Treated to Date (test code = 5715) Prescribed Dose Per 2 Fraction in Gy (test code = 5716) Prescription Dose in cGy 6000 (test code = 5717) [facility] DAILY [id number] 20:31:22 Test Item Value Reference Range Interpretation Comments Course ID (test code = C3 5706) Course Start Date (test 2022-01-18 @16:41 code = 5707) Treatment Elapsed Days 34 (test code = 5709) Course Intent (test code Curative = 5686) Treatment Dates (test First Treatment Date: code = 5685) 2022-02-05 @16:32Last Treatment Date: 2022-03-11 @15:29 Reference Point ID (test Subcarina code = 5710) Dosage Given to Date in 50.94613442 Gy (test code = 5711) Session Dosage Given in 2.54466951 Gy (test code = 5712) Plan ID (test code = Subcarina 5713) Fractions Treated to Date (test code = 5715) Prescribed Dose Per 2 Fraction in Gy (test code = 5716) Prescription Dose in cGy 6000 (test code = 5717) [facility] DAILY [id number] 17:08:15 Test Item Value Reference Range Interpretation Comments Course ID (test code = C3 5706) Course Start Date (test 2022-01-18 @16:41 code = 5707) Treatment Elapsed Days 31 (test code = 5709) Course Intent (test code Curative = 5686) Treatment Dates (test First Treatment Date: code = 5685) 2022-02-05 @16:32Last Treatment Date: 2022-03-08 @12:06 Reference Point ID (test Subcarina code = 5710) Dosage Given to Date in 48.57087495 Gy (test code = 5711) Session Dosage Given in 2.10413523 Gy (test code = 5712) Plan ID (test code = Subcarina 5713) Fractions Treated to Date (test code = 5715) Prescribed Dose Per 2 Fraction in Gy (test code = 5716) Prescription Dose in cGy 6000 (test code = 5717) [facility] DAILY [id number] 20:03:00 Test Item Value Reference Range Interpretation Comments Course ID (test code = C3 5706) Course Start Date (test 2022-01-18 @16:41 code = 5707) Treatment Elapsed Days 30 (test code = 5709) Course Intent (test code Curative = 5686) Treatment Dates (test First Treatment Date: code = 5685) 2022-02-05 @16:32Last Treatment Date: 2022-03-07 @15:00 Reference Point ID (test Subcarina code = 5710) Dosage Given to Date in 46.24408063 Gy (test code = 5711) Session Dosage Given in 2.08629445 Gy (test code = 5712) Plan ID (test code = Subcarina 5713) Fractions Treated to Date (test code = 5715) Prescribed Dose Per 2 Fraction in Gy (test code = 5716) Prescription Dose in cGy 6000 (test code = 5717) [facility] DAILY [id number] 18:57:31 Test Item Value Reference Range Interpretation Comments Course ID (test code = C3 5706) Course Start Date (test 2022-01-18 @16:41 code = 5707) Treatment Elapsed Days 29 (test code = 5709) Course Intent (test code Curative = 5686) Treatment Dates (test First Treatment Date: code = 5685) 2022-02-05 @16:32Last Treatment Date: 2022-03-06 @13:55 Reference Point ID (test Subcarina code = 5710) Dosage Given to Date in 44.64878220 Gy (test code = 5711) Session Dosage Given in 2.84607951 Gy (test code = 5712) Plan ID (test code = Subcarina 5713) Fractions Treated to Date (test code = 5715) Prescribed Dose Per 2 Fraction in Gy (test code = 5716) Prescription Dose in cGy 6000 (test code = 5717) [facility] DAILY [id number] 19:29:30 Test Item Value Reference Range Interpretation Comments Course ID (test code = C3 5706) Course Start Date (test 2022-01-18 @16:41 code = 5707) Treatment Elapsed Days 28 (test code = 5709) Course Intent (test code Curative = 5686) Treatment Dates (test First Treatment Date: code = 5685) 2022-02-05 @16:32Last Treatment Date: 2022-03-05 @14:27 Reference Point ID (test Subcarina code = 5710) Dosage Given to Date in 42.91718124 Gy (test code = 5711) Session Dosage Given in 2.50484229 Gy (test code = 5712) Plan ID (test code = Subcarina 5713) Fractions Treated to Date (test code = 5715) Prescribed Dose Per 2 Fraction in Gy (test code = 5716) Prescription Dose in cGy 6000 (test code = 5717) [facility] DAILY [id number] 18:24:12 Test Item Value Reference Range Interpretation Comments Course ID (test code = C3 5706) Course Start Date (test 2022-01-18 @16:41 code = 5707) Treatment Elapsed Days 27 (test code = 5709) Course Intent (test code Curative = 5686) Treatment Dates (test First Treatment Date: code = 5685) 2022-02-05 @16:32Last Treatment Date: 2022-03-04 @13:22 Reference Point ID (test Subcarina code = 5710) Dosage Given to Date in 40.0171698 Gy (test code = 5711) Session Dosage Given in 2.10229278 Gy (test code = 5712) Plan ID (test code = Subcarina 5713) Fractions Treated to Date (test code = 5715) Prescribed Dose Per 2 Fraction in Gy (test code = 5716) Prescription Dose in cGy 6000 (test code = 5717) [facility] DAILY [id number] 19:46:04 Test Item Value Reference Range Interpretation Comments Course ID (test code = C3 5706) Course Start Date (test 2022-01-18 @16:41 code = 5707) Treatment Elapsed Days 24 (test code = 5709) Course Intent (test code Curative = 5686) Treatment Dates (test First Treatment Date: code = 5685) 2022-02-05 @16:32Last Treatment Date: 2022-03-01 @14:44 Reference Point ID (test Subcarina code = 5710) Dosage Given to Date in 38.16076956 Gy (test code = 5711) Session Dosage Given in 2.28547472 Gy (test code = 5712) Plan ID (test code = Subcarina 5713) Fractions Treated to Date (test code = 5715) Prescribed Dose Per 2 Fraction in Gy (test code = 5716) Prescription Dose in cGy 6000 (test code = 5717) [facility] DAILY [id number] 20:13:22 Test Item Value Reference Range Interpretation Comments Course ID (test code = C3 5706) Course Start Date (test 2022-01-18 @16:41 code = 5707) Treatment Elapsed Days 23 (test code = 5709) Course Intent (test code Curative = 5686) Treatment Dates (test First Treatment Date: code = 5685) 2022-02-05 @16:32Last Treatment Date: 2022-02-28 @15:11 Reference Point ID (test Subcarina code = 5710) Dosage Given to Date in 36.25584453 Gy (test code = 5711) Session Dosage Given in 2.28598450 Gy (test code = 5712) Plan ID (test code = Subcarina 5713) Fractions Treated to Date (test code = 5715) Prescribed Dose Per 2 Fraction in Gy (test code = 5716) Prescription Dose in cGy 6000 (test code = 5717) [facility] DAILY [id number] 20:28:42 Test Item Value Reference Range Interpretation Comments Course ID (test code = C3 5706) Course Start Date (test 2022-01-18 @16:41 code = 5707) Treatment Elapsed Days 22 (test code = 5709) Course Intent (test code Curative = 5686) Treatment Dates (test First Treatment Date: code = 5685) 2022-02-05 @16:32Last Treatment Date: 2022-02-27 @15:25 Reference Point ID (test Subcarina code = 5710) Dosage Given to Date in 34.91251564 Gy (test code = 5711) Session Dosage Given in 2.86945383 Gy (test code = 5712) Plan ID (test code = Subcarina 5713) Fractions Treated to Date (test code = 5715) Prescribed Dose Per 2 Fraction in Gy (test code = 5716) Prescription Dose in cGy 6000 (test code = 5717) [facility] DAILY [id number] 20:36:08 Test Item Value Reference Range Interpretation Comments Course ID (test code = C3 5706) Course Start Date (test 2022-01-18 @16:41 code = 5707) Treatment Elapsed Days 21 (test code = 5709) Course Intent (test code Curative = 5686) Treatment Dates (test First Treatment Date: code = 5685) 2022-02-05 @16:32Last Treatment Date: 2022-02-26 @15:33 Reference Point ID (test Subcarina code = 5710) Dosage Given to Date in 32.44580793 Gy (test code = 5711) Session Dosage Given in 2.60978302 Gy (test code = 5712) Plan ID (test code = Subcarina 5713) Fractions Treated to Date (test code = 5715) Prescribed Dose Per 2 Fraction in Gy (test code = 5716) Prescription Dose in cGy 6000 (test code = 5717) [facility] DAILY [id number] 19:36:27 Test Item Value Reference Range Interpretation Comments Course ID (test code = C3 5706) Course Start Date (test 2022-01-18 @16:41 code = 5707) Treatment Elapsed Days 20 (test code = 5709) Course Intent (test code Curative = 5686) Treatment Dates (test First Treatment Date: code = 5685) 2022-02-05 @16:32Last Treatment Date: 2022-02-25 @14:34 Reference Point ID (test Subcarina code = 5710) Dosage Given to Date in 30.07032879 Gy (test code = 5711) Session Dosage Given in 2.18301901 Gy (test code = 5712) Plan ID (test code = Subcarina 5713) Fractions Treated to Date (test code = 5715) Prescribed Dose Per 2 Fraction in Gy (test code = 5716) Prescription Dose in cGy 6000 (test code = 5717) [facility] DAILY [id number] 20:26:13 Test Item Value Reference Range Interpretation Comments Course ID (test code = C3 5706) Course Start Date (test 2022-01-18 @16:41 code = 5707) Treatment Elapsed Days 17 (test code = 5709) Course Intent (test code Curative = 5686) Treatment Dates (test First Treatment Date: code = 5685) 2022-02-05 @16:32Last Treatment Date: 2022-02-22 @15:24 Reference Point ID (test Subcarina code = 5710) Dosage Given to Date in 28.07965962 Gy (test code = 5711) Session Dosage Given in 2.02451238 Gy (test code = 5712) Plan ID (test code = Subcarina 5713) Fractions Treated to Date (test code = 5715) Prescribed Dose Per 2 Fraction in Gy (test code = 5716) Prescription Dose in cGy 6000 (test code = 5717) [facility] DAILY [id number] 20:31:32 Test Item Value Reference Range Interpretation Comments Course ID (test code = C3 5706) Course Start Date (test 2022-01-18 @16:41 code = 5707) Treatment Elapsed Days 16 (test code = 5709) Course Intent (test code Curative = 5686) Treatment Dates (test First Treatment Date: code = 5685) 2022-02-05 @16:32Last Treatment Date: 2022-02-21 @15:29 Reference Point ID (test Subcarina code = 5710) Dosage Given to Date in 26.60951827 Gy (test code = 5711) Session Dosage Given in 2.13236571 Gy (test code = 5712) Plan ID (test code = Subcarina 5713) Fractions Treated to Date (test code = 5715) Prescribed Dose Per 2 Fraction in Gy (test code = 5716) Prescription Dose in cGy 6000 (test code = 5717) [facility] DAILY [id number] 20:27:20 Test Item Value Reference Range Interpretation Comments Course ID (test code = C3 5706) Course Start Date (test 2022-01-18 @16:41 code = 5707) Treatment Elapsed Days 15 (test code = 5709) Course Intent (test code Curative = 5686) Treatment Dates (test First Treatment Date: code = 5685) 2022-02-05 @16:32Last Treatment Date: 2022-02-20 @15:25 Reference Point ID (test Subcarina code = 5710) Dosage Given to Date in 24.26340354 Gy (test code = 5711) Session Dosage Given in 2.60111809 Gy (test code = 5712) Plan ID (test code = Subcarina 5713) Fractions Treated to Date (test code = 5715) Prescribed Dose Per 2 Fraction in Gy (test code = 5716) Prescription Dose in cGy 6000 (test code = 5717) [facility] DAILY [id number] 22:25:50 Test Item Value Reference Range Interpretation Comments Course ID (test code = C3 5706) Course Start Date (test 2022-01-18 @16:41 code = 5707) Treatment Elapsed Days 14 (test code = 5709) Course Intent (test code Curative = 5686) Treatment Dates (test First Treatment Date: code = 5685) 2022-02-05 @16:32Last Treatment Date: 2022-02-19 @17:21 Reference Point ID (test Subcarina code = 5710) Dosage Given to Date in 22.69529217 Gy (test code = 5711) Session Dosage Given in 2.99630732 Gy (test code = 5712) Plan ID (test code = Subcarina 5713) Fractions Treated to Date (test code = 5715) Prescribed Dose Per 2 Fraction in Gy (test code = 5716) Prescription Dose in cGy 6000 (test code = 5717) [facility] DAILY [id number] 20:27:27 Test Item Value Reference Range Interpretation Comments Course ID (test code = C3 5706) Course Start Date (test 2022-01-18 @16:41 code = 5707) Treatment Elapsed Days 13 (test code = 5709) Course Intent (test code Curative = 5686) Treatment Dates (test First Treatment Date: code = 5685) 2022-02-05 @16:32Last Treatment Date: 2022-02-18 @15:25 Reference Point ID (test Subcarina code = 5710) Dosage Given to Date in 20.5186785 Gy (test code = 5711) Session Dosage Given in 2.92126807 Gy (test code = 5712) Plan ID (test code = Subcarina 5713) Fractions Treated to Date (test code = 5715) Prescribed Dose Per 2 Fraction in Gy (test code = 5716) Prescription Dose in cGy 6000 (test code = 5717) [facility] DAILY [id number] 20:09:22 Test Item Value Reference Range Interpretation Comments Course ID (test code = C3 5706) Course Start Date (test 2022-01-18 @16:41 code = 5707) Treatment Elapsed Days 10 (test code = 5709) Course Intent (test code Curative = 5686) Treatment Dates (test First Treatment Date: code = 5685) 2022-02-05 @16:32Last Treatment Date: 2022-02-15 @15:07 Reference Point ID (test Subcarina code = 5710) Dosage Given to Date in 18.78407799 Gy (test code = 5711) Session Dosage Given in 2.38118113 Gy (test code = 5712) Plan ID (test code = Subcarina 5713) Fractions Treated to Date (test code = 5715) Prescribed Dose Per 2 Fraction in Gy (test code = 5716) Prescription Dose in cGy 6000 (test code = 5717) [facility] DAILY [id number] 20:31:50 Test Item Value Reference Range Interpretation Comments Course ID (test code = C3 5706) Course Start Date (test 2022-01-18 @16:41 code = 5707) Treatment Elapsed Days 9 (test code = 5709) Course Intent (test code Curative = 5686) Treatment Dates (test First Treatment Date: code = 5685) 2022-02-05 @16:32Last Treatment Date: 2022-02-14 @15:29 Reference Point ID (test Subcarina code = 5710) Dosage Given to Date in 16.84525664 Gy (test code = 5711) Session Dosage Given in 2.46970317 Gy (test code = 5712) Plan ID (test code = Subcarina 5713) Fractions Treated to 8 30 Date (test code = 5715) Prescribed Dose Per 2 Fraction in Gy (test code = 5716) Prescription Dose in cGy 6000 (test code = 5717) [facility] DAILY [id number] 18:38:55 Test Item Value Reference Range Interpretation Comments Course ID (test code = C3 5706) Course Start Date (test 2022-01-18 @16:41 code = 5707) Treatment Elapsed Days 8 (test code = 5709) Course Intent (test code Curative = 5686) Treatment Dates (test First Treatment Date: code = 5685) 2022-02-05 @16:32Last Treatment Date: 2022-02-13 @13:32 Reference Point ID (test Subcarina code = 5710) Dosage Given to Date in 14.44932247 Gy (test code = 5711) Session Dosage Given in 2.03032565 Gy (test code = 5712) Plan ID (test code = Subcarina 5713) Fractions Treated to Date (test code = 5715) Prescribed Dose Per 2 Fraction in Gy (test code = 5716) Prescription Dose in cGy 6000 (test code = 5717) [facility] DAILY [id number] 20:16:34 Test Item Value Reference Range Interpretation Comments Course ID (test code = C3 5706) Course Start Date (test 2022-01-18 @16:41 code = 5707) Treatment Elapsed Days 7 (test code = 5709) Course Intent (test code Curative = 5686) Treatment Dates (test First Treatment Date: code = 5685) 2022-02-05 @16:32Last Treatment Date: 2022-02-12 @15:14 Reference Point ID (test Subcarina code = 5710) Dosage Given to Date in 12.39082682 Gy (test code = 5711) Session Dosage Given in 2.31607798 Gy (test code = 5712) Plan ID (test code = Subcarina 5713) Fractions Treated to 6 Date (test code = 5715) Prescribed Dose Per 2 Fraction in Gy (test code = 5716) Prescription Dose in cGy 6000 (test code = 5717) [facility] DAILY [id number] 18:34:11 Test Item Value Reference Range Interpretation Comments Course ID (test code = C3 5706) Course Start Date (test 2022-01-18 @16:41 code = 5707) Treatment Elapsed Days 6 (test code = 5709) Course Intent (test code Curative = 5686) Treatment Dates (test First Treatment Date: code = 5685) 2022-02-05 @16:32Last Treatment Date: 2022-02-11 @13:27 Reference Point ID (test Subcarina code = 5710) Dosage Given to Date in 10.67636899 Gy (test code = 5711) Session Dosage Given in 2.97489333 Gy (test code = 5712) Plan ID (test code = Subcarina 5713) Fractions Treated to Date (test code = 5715) Prescribed Dose Per 2 Fraction in Gy (test code = 5716) Prescription Dose in cGy 6000 (test code = 5717) [facility] DAILY [id number] 20:19:58 Test Item Value Reference Range Interpretation Comments Course ID (test code = C3 5706) Course Start Date (test 2022-01-18 @16:41 code = 5707) Treatment Elapsed Days 3 (test code = 5709) Course Intent (test code Curative = 5686) Treatment Dates (test First Treatment Date: code = 5685) 2022-02-05 @16:32Last Treatment Date: 2022-02-08 @15:18 Reference Point ID (test Subcarina code = 5710) Dosage Given to Date in 8.69068724 Gy (test code = 5711) Session Dosage Given in 2.51496694 Gy (test code = 5712) Plan ID (test code = Subcarina 5713) Fractions Treated to Date (test code = 5715) Prescribed Dose Per 2 Fraction in Gy (test code = 5716) Prescription Dose in cGy 6000 (test code = 5717) [facility] DAILY [id number] 20:02:52 Test Item Value Reference Range Interpretation Comments Course ID (test code = C3 5706) Course Start Date (test 2022-01-18 @16:41 code = 5707) Treatment Elapsed Days 2 (test code = 5709) Course Intent (test code Curative = 5686) Treatment Dates (test First Treatment Date: code = 5685) 2022-02-05 @16:32Last Treatment Date: 2022-02-07 @15:01 Reference Point ID (test Subcarina code = 5710) Dosage Given to Date in 6.05532117 Gy (test code = 5711) Session Dosage Given in 2.04104891 Gy (test code = 5712) Plan ID (test code = Subcarina 5713) Fractions Treated to Date (test code = 5715) Prescribed Dose Per 2 Fraction in Gy (test code = 5716) Prescription Dose in cGy 6000 (test code = 5717) [facility] DAILY [id number] 21:37:52 Test Item Value Reference Range Interpretation Comments Course ID (test code = C3 5706) Course Start Date (test 2022-01-18 @16:41 code = 5707) Treatment Elapsed Days 1 (test code = 5709) Course Intent (test code Curative = 5686) Treatment Dates (test First Treatment Date: code = 5685) 2022-02-05 @16:32Last Treatment Date: 2022-02-06 @16:35 Reference Point ID (test Subcarina code = 5710) Dosage Given to Date in 4.22893776 Gy (test code = 5711) Session Dosage Given in 2.43970508 Gy (test code = 5712) Plan ID (test code = Subcarina 5713) Fractions Treated to Date (test code = 5715) Prescribed Dose Per 2 Fraction in Gy (test code = 5716) Prescription Dose in cGy 6000 (test code = 5717) [facility] DAILY [id number] 21:43:41 Test Item Value Reference Range Interpretation Comments Course ID (test code = C3 5706) Course Start Date (test 2022-01-18 @16:41 code = 5707) Treatment Elapsed Days 0 (test code = 5709) Course Intent (test code Curative = 5686) Treatment Dates (test First Treatment Date: code = 5685) 2022-02-05 @16:32Last Treatment Date: 2022-02-05 @16:41 Reference Point ID (test Subcarina code = 5710) Dosage Given to Date in 2.50679816 Gy (test code = 5711) Session Dosage Given in 2.83161463 Gy (test code = 5712) Plan ID (test code = Subcarina 5713) Fractions Treated to Date (test code = 5715) Prescribed Dose Per 2 Fraction in Gy (test code = 5716) Prescription Dose in cGy 6000 (test code = 5717) [facility] [id number] 12:55:00 Test Item Value Reference Range Interpretation Comments POC glucose (test code 112 mg/dL 65-99 H Opera tor Name: Edilberto = 18727-1) BlaineDevice ID : [id number] able: [facility] 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 Interpretation Abnormal (test code = 14702-9) [facility] ONC COURSE [id number] 19:56:56 Test Item Value Reference Range Interpretation [...] code = Mediastinum 5714) Fractions Treated to Date (test code = 5715) Prescribed Dose Per Fraction in Gy (test code = 5716) Prescription Dose in cGy (test code = 5717) [facility] ONC DAILY [id number] 13:24:35 Test Item Value Reference Range Interpretation [...] code = Boost 5713) Fractions Treated to of 10 Date (test code = 5715) Prescribed Dose Per Fraction in Gy (test code = 5716) Prescription Dose in cGy (test code = 5717) [facility] DAILY [id number] 16:45:25 Test Item Value Reference Range Interpretation [...] code = Boost 5713) Fractions Treated to Date (test code = 5715) Prescribed Dose Per Fraction in Gy (test code = 5716) Prescription Dose in cGy (test code = 5717) [facility] DAILY [id number] 16:45:46 Test Item Value Reference Range Interpretation [...] Dose in cGy (test code = 5717) [facility] DAILY [id number] 17:14:34 Test Item Value Reference Range Interpretation [...] Dose in cGy (test code = 5717) [facility] DAILY [id number] 17:29:35 Test Item Value Reference Range Interpretation [...] Dose in cGy (test code = 5717) [facility] DAILY [id number] 13:11:43 Test Item Value Reference Range Interpretation [...] Dose in cGy (test code = 5717) [facility] DAILY [id number] 16:51:36 Test Item Value Reference Range Interpretation [...] code = Boost 5713) Fractions Treated to Date (test code = 5715) Prescribed Dose Per Fraction in Gy (test code = 5716) Prescription Dose in cGy (test code = 5717) [facility] DAILY [id number] 17:37:41 Test Item Value Reference Range Interpretation [...] = Boost 5713) Fractions Treated to 3 of 10 Date (test code = 5715) Prescribed Dose Per Fraction in Gy (test code = 5716) Prescription Dose in cGy (test code = 5717) [facility] DAILY [id number] 17:27:38 Test Item Value Reference Range Interpretation [...] = Boost 5713) Fractions Treated to 2 10 Date (test code = 5715) Prescribed Dose Per Fraction in Gy (test code = 5716) Prescription Dose in cGy (test code = 5717) [facility] DAILY [id number] 17:41:13 Test Item Value Reference Range Interpretation [...] code = Boost 5713) Fractions Treated to 1 of 10 Date (test code = 5715) Prescribed Dose Per Fraction in Gy (test code = 5716) Prescription Dose in cGy (test code = 5717) [facility] DAILY [id number] 16:18:41 Test Item Value Reference Range Interpretation [...] Dose in cGy (test code = 5717) [facility] DAILY [id number] 17:12:42 Test Item Value Reference Range Interpretation [...] Dose in cGy (test code = 5717) [facility] DAILY [id number] 16:46:28 Test Item Value Reference Range Interpretation [...] Dose in cGy (test code = 5717) [facility] ONC DAILY [id number] 16:52:47 Test Item Value Reference Range Interpretation [...] Dose in cGy (test code = 5717) [facility] ONC DAILY [id number] 13:51:59 Test Item Value Reference Range Interpretation [...] Dose in cGy (test code = 5717) [facility] ONC DAILY [id number] 16:51:51 Test Item Value Reference Range Interpretation [...] Dose in cGy (test code = 5717) [facility] DAILY [id number] 17:12:14 Test Item Value Reference Range Interpretation [...] Dose in cGy (test code = 5717) [facility] DAILY [id number] 16:14:16 Test Item Value Reference Range Interpretation [...] Dose in cGy (test code = 5717) [facility] [id number] 21:51:17 Test Item Value Reference Range Interpretation [...] Dose in cGy (test code = 5717) [facility] GhzenmyfGYAV-GxQ-2 (COVID-19) RNA [Presence] in Respiratory specimen by JOANN with probe [id number] 02:53:28 Test Item Value Reference Range Interpretation Comments SARS-CoV-2 (COVID-19) RNA Not detected Not-Detected [Presence] in Respiratory specimen by JOANN with probe detection (test code = 65037-8) Whether patient is employed in a healthcare setting (test code = 66174-1) Whether the patient has symptoms related to condition of interest (test code = 58463-9) Patient was hospitalized because of this condition (test code = 62399-2) Whether the patient was admitted to intensive care unit (ICU) for condition of interest (test code = 32693-8) Whether patient resides in a congregate care setting (test code = 24105-7) TU SOLIS 12 [id number] 02:03:24 Test Item Value Reference Range Interpretation Comments Ventricular rate (test code = 253) Atrial rate (test code = 255) UT interval (test code = 266) QRSD interval [...] 25-JAN-2021 11:45,-premature atrial complexes are now present- [facility] [id number] 14:12:43 Test Item Value Reference Range Interpretation [...] Dose in cGy (test code = 5717) [facility] [id number] 00:18:32 Test Item Value Reference Range Interpretation Comments Case number (test code = [id number]) Cytology See link below for (non-gynecological) PDF Lab Report report (test code = 1178) Result status (test code This is Final Report = [id number]) for [id number] [facility] and Rh [id number] 16:51:00 Test Item Value Reference Range Interpretation Comments ABO grouping (test code = 883-9) A Rh type (test code = 46824-1) POS [facility] [id number] 18:41:00 Test Item Value Reference Range Interpretation Comments ABO grouping (test code = 883-9) A Rh type (test code = 93130-7) POS Antibody screen (gel) (test code = NEG 890-4) [facility] WoodyARS-CoV-2 (COVID-19) RNA [Presence] in Respiratory specimen by JOANN with probe [id number] 17:58:19 Test Item Value Reference Range Interpretation Comments SARS-CoV-2 (COVID-19) RNA Not detected Not-Detected [Presence] in Respiratory specimen by JOANN with probe detection (test code = 20173-6) Whether patient is employed in a healthcare setting (test code = 72065-0) Whether the patient has symptoms related to condition of interest (test code = 50131-1) Patient was hospitalized because of this condition (test code = 37867-4) Whether the patient was admitted to intensive care unit (ICU) for condition of interest (test code = 57804-8) Whether patient resides in a congregate care setting (test code = 00970-7) TU DOUGLAS
[2022-10-20 12:10] LABS: Absolute Lymphocytes (CBC) 0.9 K/uL (0.7-4.9); Hematocrit 37.1 % (36.0-45.0); Lymphocytes % 16.8 % (15.3-44.8); MCV 94.6 fL (80-100); MPV 12.2 fL (7.6-11.3); RBC Red Blood Cell Count 3.92 M/uL (3.86-4.86)
[2022-10-20 12:14] LABS: Protime INR 1.04
[2022-10-20] MEDS ORDERED: BENZTROPINE 2 MG/2 ML VIAL ONE (12:19)
[2022-10-20 12:30] LABS: ALT/SGPT 35 U/L (13-56); AST/SGOT 26 U/L (15-37); Albumin 3.7 g/dL (3.4-5.0); Alkaline Phosphatase 99 U/L (45-117); BUN Blood Urea Nitrogen 16 mg/dL (7-18); Bicarbonate 30 mEq/L (21-32); Bilirubin Direct 0.1 mg/dL (0-0.2); Bilirubin Indirect, Calculated 0.4 mg/dL (0.2-0.8); Bilirubin Total 0.5 mg/dL (0.2-1.0); Glomerular Filtration Rate 90 ml/min (=/>90); Glucose Level 111 mg/dL (74-106); Potassium 4.3 mEq/L (3.5-5.1); Protein, Total 7.4 g/dL (6.4-8.2); Sodium Level 142 mEq/L (136-145)
--- NOTE | 2022-10-20 14:11 | RAD REPORT ---
EXAM DESCRIPTION: CT - Head Brain Wo Cont - 10/20/2022 1:52 pm CLINICAL HISTORY: Alteration of awareness/confusion COMPARISON: 2007 TECHNIQUE: Computed axial tomography of the head was obtained. IV contrast was not requested. All CT scans are performed using dose optimization technique as appropriate and may include automated exposure control or mA/KV adjustment according to patient size. FINDINGS: Images are degraded by patient motion artifact 5.1 centimeter low-density mass left frontal lobe with moderate surrounding vasogenic edema. Portions of the periphery of the mass are calcified. Shift of midline structures 9 millimeters towards the right. Compression of the left lateral ventricl e. No hydrocephalus An intracranial bleed is not seen No extra-axial fluid collection is noted. Mild to moderate low-density areas within periventricular, deep and subcortical white matter likely r epresent ischemic changes secondary to small vessel disease. Fluid within the sinuses/ mastoids is not seen. 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 An abscess can hav e a similar appearance. Moderate surrounding vasogenic edema Shift of midline structures 9 millimeters towards the right
--- NOTE | 2022-10-20 14:35 | ER ---
Nurse's Notes [facility] Name: Maite Severino Age: 62 yrs Sex: Female : 1960 Arrival Date: 10/20/2022 Time: 11:29 Bed 18 Private MD: Diagnosis: Altered mental status, unspecified;Abnormal brain scan-Brain mass with edema and midline shift Presentation: 10/20 11:27 Chief complaint: EMS states: Family called for rapid breathing. Pt asleep on the way to [address] until [address] got here. 11:27 Method Of Arrival: EMS: [facility] 11:27 Coronavirus screen: Vaccine status: Patient reports receiving the 2nd dose of the covid [facility] vaccine. Ebola Screen: Patient denies travel to an Ebola-affected area in the 21 days before illness onset. Initial Sepsis Screen: Does the patient meet any 2 criteria? No. Patient's initial sepsis screen is negative. Does the patient have a suspected source of infection? No. Patient's initial sepsis screen is negative. Risk Assessment: Do you want to hurt yourself or someone else? Patient reports no desire to harm self or others. Onset of symptoms was October 20, 2022 at 03:00. 11:27 Acuity: MINH 3 [facility] Historical: - Allergies: 11:41 No Known Allergies; [facility] - Home Meds: 13:27 divalproex 500 mg oral tablet, delayed release (enteric coated) 1 tab 3 times per day [facility] [Active]; quetiapine 300 mg oral tablet 2 tabs every day at bedtime [Active]; albuterol sulfate 90 mcg/actuation Inhl Aerosol Powder, Breath Activated 2 inhalations every 6 hours [Active]; Trelegy Ellipta 100-62.5-25 mcg inhalation Blister, With Inhalation Device 1 inhalation daily [Active]; fluticasone svytguo-eycvnvwrlqtx-bsuiqbrumf inhalation [Active]; paroxetine HCl 30 mg oral tablet 1 tab 2 times per day [Active]; risperidone 3 mg oral tablet 1 tab 2 times per day [Active]; Seroquel 300 mg Oral tablet 2 tabs every day at bedtime [Active]; mirtazapine 30 mg Oral tablet 1 tab every day at bedtime [Active]; benztropine 1 mg Oral tablet 1 tab 2 times per day [Active]; - PMHx: 11:41 Lung Cancer; Schizophrenia; Asthma; nj1 - PSHx: 11:41 Cholecystectomy; nj1 - Immunization history:: Client reports receiving the 2nd dose of the Covid vaccine. - Social history:: Smoking status: Patient denies any tobacco usage or history of. Screenin:48 [facility] ED Fall Risk Assessment (Adult) History of falling in the last 3 months, nj1 including since admission No falls in past 3 months (0 pts) Confusion or Disorientation Yes (5 pts) Intoxicated or Sedated No (0 pts) Impaired Gait No (0 pts) Mobility Assist Device Used No (0 pt) Altered Elimination No (0 pt) Score/Fall Risk Level 0 - 2 = Low Risk Oriented to surroundings, Maintained a safe environment, Hourly rounding (assess needs \T\ fall precautionary measures) done. Abuse screen: Denies threats or abuse. Denies injuries from another. Nutritional screening: No deficits noted. Tuberculosis screening: No symptoms or risk factors identified. Assessment: 11:42 General: Appears in no apparent distress. uncomfortable, Behavior is calm, cooperative. nj1 Pain: Denies pain. Neuro: Level of Consciousness is awake, alert, obeys commands, Oriented to person, place, situation. Cardiovascular: Patient's skin is warm and dry. Respiratory: Airway is patent Respiratory effort is unlabored, Facial dyskinesia noted. 12:30 Reassessment: No changes from previously documented assessment. nj1 13:33 Reassessment: No changes from previously documented assessment. nj1 14:30 Reassessment: No changes from previously documented assessment. nj1 16:30 Reassessment: Pt states pain med has helped her. nj1 16:45 Reassessment: [facility] here, report given to Raymon WELLS. nj1 Vital Signs: 11:27 BP 132 / 89; Pulse 89; Resp 16; Temp 98.4; Pulse Ox 96% on R/A; Weight 81.65 kg; Height nj1 5 ft. 3 in. ; 12:30 BP 132 / 77; Pulse 83; Resp 24; Pulse Ox 96% on R/A; nj1 13:33 BP 141 / 78; Pulse 83; Resp 17; Pulse Ox 97% on R/A; nj1 15:10 BP 132 / 86; Pulse 97; Resp 24; Pulse Ox 97% on R/A; nj1 15:35 BP 132 / 86; Pulse 101; Resp 28; Pulse Ox 96% ; nj1 16:15 BP 113 / 87; Pulse 95; Resp 20; Pulse Ox 95% on R/A; nj1 11:27 Body Mass Index 31.89 (81.65 kg, 160.02 cm) nj1 ED Course: 11:36 Patient arrived in ED. nj1 11:41 Triage completed. nj1 11:42 Dina Carrizales FNP-C is PHCP. snw 11:42 Madan Butts MD is Attending Physician. snw 11:42 Arm band placed on right wrist. nj1 11:48 Patient has correct armband on for positive identification. Bed in low position. Call nj1 light in reach. Side rails up X 1. Adult w/ patient. 11:50 Missed attempt(s): 20 gauge in left antecubital area. nj1 11:57 Inserted saline lock: 20 gauge in right antecubital area, using aseptic technique. nj1 Blood collected. 12:07 Kay Bunch, RN is Primary Nurse. nj1 13:54 CT Head Brain wo Cont In Process Unspecified. EDMS 14:34 [facility] a [facility] at the request of eb the patient. 14:56 connected the neurosurgeon personal finance instructor for [facility] with Dr. Butts for patient transfer eb consultation. 15:04 Chest Single View XRAY In Process Unspecified. EDMS 15:05 administrative approval given by Manny Farrell/ patient has been accepted to [facility] [place] [address]/ Dr. Judd Camp has accepted the patient in transfer/ report to be called to the transfer center [phone]. 15:06 connected the vice president medical affairs personal finance instructor for [facility] with Dr. Butts for patient transfer eb consultation. 15:10 Add On-Lab Sent. nj1 15:21 connected one of the neuro surgeon residents with son to get more patient information. eb 16:14 Patient transferred, IV remains in place. nj1 16:58 No provider procedures requiring assistance completed. nj1 Administered Medications: 11:45 CANCELLED (Other Intervention Used): Geodon IM 20 mg IM once snw 12:19 Drug: Benztropine IM 2 mg Route: IM; Site: right gluteus; nj1 13:00 Follow up: Response: No adverse reaction nj1 14:35 Drug: Decadron - Dexamethasone IVP 10 mg Route: IVP; Site: left antecubital; nj1 15:10 Follow up: Response: No adverse reaction nj1 16:05 Drug: HYDROcodone-acetaminophen PO 5 mg-325 mg 1 tabs Route: PO; nj1 16:58 Follow up: Response: No adverse reaction nj1 Medication: 16:57 VIS not applicable for this client. nj1 Outcome: 14:34 ER care complete, transfer ordered by . rn 15:38 Transferred by ground EMS to [facility], Transfer form completed. Note: nj1 Report given to nurse Audelia 15:38 Condition: stable nj1 15:38 Instructed on the need for transfer. 16:58 Patient left the ED. nj1 Signatures: Dispatcher [employer] EDMS Dina Carrizales, VIDA-C ROLL FORM OPERATOR-Csnw Madan Butts MD MD rn Botello, Elizabeth eb Jaco, Norma RN RN nj1 Corrections: (The following items were deleted from the chart) 13:33 13:27 PMHx: chemotherapy; nj1 nj1
--- NOTE | 2022-10-20 14:35 | EDPHYS ---
Physician Documentation [facility] Name: Maite Severino Age: 62 yrs Sex: Female : 1960 Arrival Date: 10/20/2022 Time: 11:29 Bed 18 Private MD: ED Physician Madan Butts HPI: 10/20 11:47 This 62 yrs old Female presents to ER via EMS with complaints of Dyspnea. snw 11:47 The patient presents to the emergency department with hx of panic attack and snw schizophrenia. Associated signs and symptoms: Pertinent positives; anxiety, tremor. Severity of symptoms: At their worst the symptoms were moderate severe in the emergency department the symptoms have improved. The patient has experienced similar episodes in the past. It is unknown whether or not the patient has recently seen a physician. Historical: - Allergies: 11:41 No Known Allergies; nj1 - Home Meds: 13:27 divalproex 500 mg oral tablet, delayed release (enteric coated) 1 tab 3 times per day nj1 [Active]; quetiapine 300 mg oral tablet 2 tabs every day at bedtime [Active]; albuterol sulfate 90 mcg/actuation Inhl Aerosol Powder, Breath Activated 2 inhalations every 6 hours [Active]; Trelegy Ellipta 100-62.5-25 mcg inhalation Blister, With Inhalation Device 1 inhalation daily [Active]; fluticasone uvxcjhx-bywakvflpquc-hshfystrwa inhalation [Active]; paroxetine HCl 30 mg oral tablet 1 tab 2 times per day [Active]; risperidone 3 mg oral tablet 1 tab 2 times per day [Active]; Seroquel 300 mg Oral tablet 2 tabs every day at bedtime [Active]; mirtazapine 30 mg Oral tablet 1 tab every day at bedtime [Active]; benztropine 1 mg Oral tablet 1 tab 2 times per day [Active]; - PMHx: 11:41 Lung Cancer; Schizophrenia; Asthma; nj1 - PSHx: 11:41 Cholecystectomy; nj1 - Immunization history:: Client reports receiving the 2nd dose of the Covid vaccine. - Social history:: Smoking status: Patient denies any tobacco usage or history of. ROS: 11:47 Constitutional: Negative for fever, chills, and weight loss, Eyes: Negative for injury, snw pain, redness, and discharge, ENT: Negative for injury, pain, and discharge, Neck: Negative for injury, pain, and swelling, Cardiovascular: Negative for chest pain, palpitations, and edema, Abdomen/GI: Negative for abdominal pain, nausea, vomiting, diarrhea, and constipation, Back: Negative for injury and pain, : Negative for injury, bleeding, discharge, and swelling, MS/Extremity: Negative for injury and deformity, Skin: Negative for injury, rash, and discoloration, Neuro: Negative for headache, weakness, numbness, tingling, and seizure. 11:47 Respiratory: Positive for shortness of breath. 11:47 Psych: Positive for panic attack. Exam: 11:45 Head/Face: Normocephalic, atraumatic. Eyes: Pupils equal round and reactive to light, snw extra-ocular motions intact. Lids and lashes normal. Conjunctiva and sclera are non-icteric and not injected. Cornea within normal limits. Periorbital areas with no swelling, redness, or edema. ENT: Nares patent. No nasal discharge, no septal abnormalities noted. Tympanic membranes are normal and external auditory canals are clear. Oropharynx with no redness, swelling, or masses, exudates, or evidence of obstruction, uvula midline. Mucous membranes moist. Neck: Trachea midline, no thyromegaly or masses palpated, and no cervical lymphadenopathy. Supple, full range of motion without nuchal rigidity, or vertebral point tenderness. No Meningismus. Chest/axilla: Normal chest wall appearance and motion. Nontender with no deformity. No lesions are appreciated. Cardiovascular: Regular rate and rhythm with a normal S1 and S2. No gallops, murmurs, or rubs. Normal PMI, no JVD. No pulse deficits. 11:45 Abdomen/GI: Soft, non-tender, with normal bowel sounds. No distension or tympany. No guarding or rebound. No evidence of tenderness throughout. Back: No spinal tenderness. No costovertebral tenderness. Full range of motion. Skin: Warm, dry with normal turgor. Normal color with no rashes, no lesions, and no evidence of cellulitis. MS/ Extremity: Pulses equal, no cyanosis. Neurovascular intact. Full, normal range of motion. Neuro: Awake and alert, GCS 15, oriented to person, place, time, and situation. Extrapyramidal movements said to be similar to patient's norm. Gait not tested. 11:45 Constitutional: The patient appears awake, anxious, restless, extrapyramidal movements of tongue and mouth 11:45 Respiratory: the patient does not display signs of respiratory distress, Respirations: normal, Breath sounds: wheezing: expiratory that is mild, is scattered. 11:45 Psych: Behavior/mood is anxious, Affect is animated, Oriented to person, place, time. Vital Signs: 11:27 BP 132 / 89; Pulse 89; Resp 16; Temp 98.4; Pulse Ox 96% on R/A; Weight 81.65 kg; Height nj1 5 ft. 3 in. ; 12:30 BP 132 / 77; Pulse 83; Resp 24; Pulse Ox 96% on R/A; nj1 13:33 BP 141 / 78; Pulse 83; Resp 17; Pulse Ox 97% on R/A; nj1 15:10 BP 132 / 86; Pulse 97; Resp 24; Pulse Ox 97% on R/A; nj1 15:35 BP 132 / 86; Pulse 101; Resp 28; Pulse Ox 96% ; nj1 16:15 BP 113 / 87; Pulse 95; Resp 20; Pulse Ox 95% on R/A; nj1 11:27 Body Mass Index 31.89 (81.65 kg, 160.02 cm) nj1 MDM: 11:43 Patient medically screened. snw 11:48 Differential diagnosis: acute psychotic break, depression, panic attack. Data reviewed: snw vital signs, nurses notes. 12:50 Historians other than the Patient: EMS: [place] [facility] [place]. Family Member: Son. snw 14:20 Management of patient was discussed with the following: Dr. Butts. Care significantly snw affected by the following chronic conditions: Pt dx/tx for lung ca remotely, had "spot on liver", treated with radiation x 1 week. Pt has not followed at [facility] since Jun 03. . Counseling: I had a detailed discussion with the patient and/or guardian regarding: the historical points, exam findings, and any diagnostic results supporting the discharge/admit diagnosis, the presence of at least one elevated blood pressure reading (>120/80) during this emergency department visit, lab results, radiology results, the need to transfer to another facility, for higher level of care, [facility] does not immediately have the required specialist. 15:34 Management of patient was discussed with the following: Dr. Butts spoke with Neurosurg snw at [facility] (where pt was tx for ca until Jun 03). They kindly accept pt in transfer. 10/20 11:43 Order name: Acetaminophen; Complete Time: 13:18 snw 10/20 11:43 Order name: Basic Metabolic Panel; Complete Time: 13:18 snw 10/20 11:43 Order name: CBC with Diff; Complete Time: 12:27 snw 10/20 11:43 Order name: ETOH Level; Complete Time: 12:28 snw 10/20 11:43 Order name: Hepatic Function; Complete Time: 13:18 snw 10/20 11:43 Order name: PT-INR; Complete Time: 12:27 snw 10/20 11:43 Order name: Ptt, Activated; Complete Time: 12:27 snw 10/20 11:43 Order name: Salicylate; Complete Time: 13:02 snw 10/20 12:28 Order name: Add On-Lab w 10/20 12:32 Order name: Thyroid Stimulating Hormone; Complete Time: 13:18 EDMS 10/20 13:00 Order name: T4 Free; Complete Time: 13:18 EDMS 10/20 13:02 Order name: CT Head Brain wo Cont; Complete Time: 14:20 snw 10/20 14:25 Order name: Chest Single View XRAY; Complete Time: 15:37 snw 10/20 11:43 Order name: EKG; Complete Time: 11:44 snw 10/20 11:43 Order name: EKG - Nurse/Tech; Complete Time: 13:06 snw 10/20 11:43 Order name: IV Saline Lock; Complete Time: 12:04 snw 10/20 11:43 Order name: Labs collected and sent; Complete Time: 12:04 snw EC:00 Rate is 81 beats/min. Rhythm is irregular. QRS [place] is Normal. FL interval is normal. snw QRS interval is normal. QT interval is prolonged. Clinical impression: NSR w/ Non-specific ST/T Changes and Sinus arrythmia. Administered Medications: 11:45 CANCELLED (Other Intervention Used): Geodon IM 20 mg IM once snw 12:19 Drug: Benztropine IM 2 mg Route: IM; Site: right gluteus; nj1 13:00 Follow up: Response: No adverse reaction nj1 14:35 Drug: Decadron - Dexamethasone IVP 10 mg Route: IVP; Site: left antecubital; nj1 15:10 Follow up: Response: No adverse reaction nj1 16:05 Drug: HYDROcodone-acetaminophen PO 5 mg-325 mg 1 tabs Route: PO; nj1 16:58 Follow up: Response: No adverse reaction nj1 Disposition: 14:32 Co-signature as Attending Physician, Madan Butts MD I agree with the assessment and rn plan of care. I reviewed the patient's care provided by Advanced Practice Provider \\T\\ agree w/ the diagnosis \\T\\ care plan. I personally saw the pt \\T\\ performed a substantive portion of the visit, incldng all aspects of the (History/Exam/Medical Decision Making). 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 HPI: 62 year old female with AMS, son states got worse yesterday. Has hx of lung and liver cancer. No known brain mets. My personal exam of patient reveals: AMS, agitated but answers questions and follows commands, + RLE weakness I agree with assessment and care plan and confirm the diagnosis (es) above. 14:34 Critical Care:. 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 Total rn time: 40 minutes Signatures: Dispatcher [employer] EDMS Dina Carrizales, DOMESTIC HOUSEKEEPER-C DOMESTIC HOUSEKEEPER-Csnw Madan Butts MD MD rn Jaco, Norma, RN RN nj1 Corrections: (The following items were deleted from the chart) 11:45 11:43 Geodon IM 20 mg IM once ordered. snw snw 12:13 11:43 Suicide Screening ([place]) ordered. snw nj1 13:33 13:27 PMHx: chemotherapy; nj1 nj1 14:32 13:24 CT-HEAD/BRAIN W/O CONTRAST ordered. EDMS EDMS 14:34 11:45 Abdomen/GI: Soft, non-tender, with normal bowel sounds. No distension or tympany. snw No guarding or rebound. No evidence of tenderness throughout. Back: No spinal tenderness. No costovertebral tenderness. Full range of motion. Skin: Warm, dry with normal turgor. Normal color with no rashes, no lesions, and no evidence of cellulitis. MS/ Extremity: Pulses equal, no cyanosis. Neurovascular intact. Full, normal range of motion. Neuro: Awake and alert, GCS 15, oriented to person, place, time, and situation. Cranial nerves II-XII grossly intact. Motor strength 5/5 in all extremities. Sensory grossly intact. Cerebellar exam normal. Normal gait. snw 16:58 14:34 Dr. correa nj1
[2022-10-20] MEDS ORDERED: dexAMETHasone 10 MG/ML VIAL ONE (14:39)
--- NOTE | 2022-10-20 15:35 | RAD REPORT ---
EXAM DESCRIPTION: Cristobal Single View10/20/2022 3:02 pm CLINICAL HISTORY: Shortness of breath COMPARISON: 2019 FINDINGS: 1.7 centimeter nodule mid right lung appears resolved probably either secondary to surgery or treatment. Calcified granuloma right upper lobe Left lung appears clear. Heart is normal size. Mediastinum is mildly prominent. This may indicate lymphadenopathy
[2022-10-20] MEDS ORDERED: HYDROCODONE/APAP 5/325 MG TAB ONE (16:05)
[2022-10-20 17:26] VITALS: BP 113/87; O2SAT 95
--- NOTE | 2022-10-21 12:04 | EKG ---
Test Date: 2022-10-20 Test Time: 12:57:38 Telephone Messenger: ANTELMO MEASUREMENT RESULTS: Intervals: Rate: 81 [place]: 158 QRSD: 88 QT: 432 QTc: 501 [place]: P: 70 [place]: 158 QRS: 84 T: 83 INTERPRETIVE STATEMENTS: Sinus rhythm with marked sinus arrhythmia Nonspecific T wave abnormality Prolonged QT Abnormal ECG Compared to ECG 01/09/2004 18:15:00 Prolonged QT interval now present Sinus tachycardia no longer present Right-axis deviation no longer present T-wave abnormality still present Electronically Signed On 10-21-22 12:00:39 CDT by Vishnu Jones
== END 2022-10-20 16:58 | disposition short-term general hospital (02) ==
LOC: ER 11:29
DX: R41.82 Altered mental status, unspecified (principal); G93.89 Other specified disorders of brain; F20.9 Schizophrenia, unspecified; J45.909 Unspecified asthma, uncomplicated; Z85.118 Personal history of other malignant neoplasm of bronchus and lung
CPT/HCPCS: 93005; 85025; 80048; 36415; 85610; 80076; 85730; 84443; 84439; 70450; 71045; 96372; 96374; 99285; 80143; 80179; 82077; J0515; J1100

== ENCOUNTER 2022-11-06 21:50 | Emergency (ER) | payer OTHER ==
--- OUTSIDE RECORDS SUMMARY | 2022-11-06 22:01 | XMS REPORT | Continuity of Care Document ---
:1960 Author Organization [facility] t Address [address] [place] [address] [place] [id number] Care Team Providers Name Role Phone Pj FLORES, Ant Primary Care Physician Devendra COOL, Marielena Tirado Attending Clinician Margaret Guillermo MA Attending Clinician Unavailable Lubna COOL, Manuel Attending Clinician Margaux Guido MD Attending Clinician Nehal COOL, Brandy Saenz Attending Clinician Cj Amaya MD Attending Clinician Guille Hansen MD Attending Clinician Jessica Wilkins CRNA Attending Clinician Dima Abdullahi MD Attending Clinician Donta Almendarez MD Attending Clinician Provider, Unknown Attending Clinician Unavailable Colleen Mcelroy RN Attending Clinician Unavailable Magui Chase RN Attending Clinician Unavailable Stephani Marinelli RN Attending Clinician Unavailable Esther Abrams LCSW Attending Clinician Unavailable Laura Solomon RN Attending Clinician Unavailable Makayla Cuevas RN Attending Clinician Unavailable Laila [facility], Cecil Attending Clinician Unavailable Blanca Andres LMSW Attending Clinician Unavailable Margaret Cowan RN Attending Clinician Unavailable Irma Carr RN Attending Clinician Unavailable Jossue [facility], Zara Attending Clinician Unavailable Cecilio Godoy RN Attending Clinician Unavailable Lexi COOL, Ventura Attending Clinician Frances Kong MD Attending Clinician MD VENTURA NAVARRETE Attending Clinician Unavailable Omega COOL, Vicky Clifton Attending Clinician Renan OLIVA, Artem Attending Clinician Unavailable Manuel Cisneros MD Attending Clinician [phone] Estella Sousa Attending Clinician Unavailable Evgeny Vásquez RN Attending Clinician Unavailable Yanni Godfrey LCSW Attending Clinician Unavailable Sri [facility], Deanna Attending Clinician Unavailable Nicole Banks [facility], Ember Attending Clinician Unavailable Ivonne Saleh MA Attending Clinician Unavailable Petty Prieto RN Attending Clinician Unavailable Adalid COOL, Donta [facility] Attending Clinician Hugh Damon MD Attending Clinician Lata Chowdary Attending Clinician Unavailable MD DONTA LYNN.HMichael Attending Clinician Unavailable Yelitza Sims MA Attending Clinician Unavailable BRANDY CALVERT Admitting Clinician Unavailable FRANCES KONG Admitting Clinician Unavailable MD VENTURA NAVARRETE Admitting Clinician Unavailable DONTA LYNN Admitting Clinician Unavailable MD DONTA LYNN.HMichael Admitting Clinician Unavailable Payers Payer Name Policy Type Policy Number Effective Date Expiration Date S ource Problems Condition Condition Condition Status Onset Resolution Last Treating Co mments Source Name Details Category Date Date Treatment Clinician Date Gait Gait Disease Active Methodi instabilit instabilit 10-29 y y 00:00: Hospita 00 l ENG ENG Disease Active Methodi (headache) (headache) 10-20 00:00: Hospita 00 l 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 Added automatic ally from request for surgery [id number] Urinary Urinary Disease Active Methodi hesitancy hesitancy [...] Source Natural father History of cancer [facility] Natural father Lung cancer [facility] mother COPD [facility] mother Diabetes [facility] Natural mother Lung cancer [facility] Social History Social Habit Start Date Stop Date Quantity Comments Source Gender identity 2021-02-21 Identifies as Method ist 13:18:55 female gender [facility] (finding) Sexual orientation 2021-02-21 Heterosexual Meth odist 13:18:55 (finding) Hospital History of Social 2022-10-31 2022-10-[address] function 00:00:00 00:00:00 Hospital Alcohol intake 2022-10-25 2022-10-25 Ex-drinker [facility] 00:00:[facility] 00:00:00 (finding) Hospital Tobacco use and 2022-01-16 2022-01-16 Smokeless tobacco Me thodist exposure 00:00:00 00:00:00 non-user Hospital Cigarettes smoked 2022-01-16 2022-01-[address] current (pack per 00:00:00 00:00:00 Hospita l day) - Reported Cigarette 2022-01-16 2022-01-16 [facility] pack-years 00:00:00 00:00:00 Hospital History of tobacco 2014-07-08 Cigarette Smoker [facility] use 00:00:00 Hospital Sex Assigned At [birth year] F [facility] 00:00:00 00:00:00 Hospital Smoking Status Start Date Stop Date Source Ex-smoker 2022-01-16 00:00:00 2022-01-16 [facility] Ordered Filled Start Stop Current Ordering Indication Dosage Frequency Signature Comments Components Source Medication Medication Date Date Medication? Clinician (SIG) Name Name acetaminoph Yes 650mg Q8H Take 1 Met hodi en ER 6-[address] (Tylenol 13:10: (650 mg Hospit a Arthritis 02 total) by l Pain) 650 mouth MG 8 hr every 8 tablet (eight) hours as needed for mild pain. diclofenac Yes 2g Q.25D Apply 2-4 M ethodi (VOLTAREN) 6-[address] 1 % gel 13:10: topically Hospi ta 02 4 (four) l times a day as needed (Knee pain). albuterol Yes 2{puff} Q6H Inhale 2 M ethodi 90 6-[address] mcg/actuati 13:10: every 6 Hos julian on inhaler 02 (six) l hours as needed for wheezing or shortness of breath. fluticasone Yes QD Take 1 Meth matty -umeclidin- 6-[address] vilanter 13:10: s by mouth Hos julian (TRELEGY 02 daily. l ELLIPTA) 100-62.5-25 mcg blister with device powder for inhalation naproxen 0 2022- No 220mg Take 220 Met hodi sodium 6-23 06-[address] (ALEVE 13:10: 00:00 mouth as Hospit a ORAL) 02 :00 needed l (Pain). QUEtiapine 2022-0 2022- No 600mg QD Take 2 Met hodi (SEROquel) 10-31- tablets st 300 MG 13:10: 00:00 (600 mg Hospita tablet 40 :00 total) by l mouth nightly. risperiDONE 2022-0 2022- No 6mg QD Take 2 Met hodi (RisperDAL) 10-31- tablets (6 s t 3 MG tablet 13:10: 00:00 mg total) Hospita 40 :00 by mouth l daily. multivitami 2022-0 2022- No 1{tbl} QD Take 1 M ethodi n tablet 10-[address] 13:10: 00:00 mouth Hospita 40 :00 daily. l levETIRAcet 2022-0 Yes 500mg Q.5D Take 1 Met hodi am (KEPPRA) 10-[address] 500 MG 00:00: (500 mg Hospita tablet 00 total) by l mouth 2 (two) times a day. risperiDONE 2022-0 Yes 2mg Q.5D Take 1 Meth matty (RisperDAL) 10-31 tablet (2 st 2 MG tablet 00:00: mg total) H ospita 00 by mouth 2 l (two) times a day. PARoxetine 2022-0 Yes 20mg QD Take 1 Metho di (PAXIL) 20 - tablet (20 st MG tablet 00:00: mg total) Hos julian 00 by mouth l every evening. QUEtiapine 2022-0 Yes 300mg Q.5D Take 1 Meth matty (SEROquel) -[address] 300 MG 00:00: (300 mg Hospita tablet 00 total) by l mouth 2 (two) times a day. mirtazapine 2022-0 2022- Yes 15mg QD Take 1 Met hodi (REMERON) 10-31- tablet (15 st 15 MG 00:00: 04:59 mg total) Hospit a tablet 00 :00 by mouth l nightly for 30 days. dexAMETHaso 2022-0 2022- Yes Take 2 Met hodi ne 10-31-30 tablets (2 st (DECADRON) 00:00: 04:59 mg total) H ospita 1 MG tablet 00 :00 by mouth 2 l (two) times a day with meals for 2 days, THEN 1 tablet (1 mg total) 2 (two) times a day with meals for 3 days, THEN 1 tablet (1 mg total) daily with breakfast for 2 days. Then stop. BIOTIN ORAL 3-0 2023- No 1{tbl} QD Take 1 M ethodi 6-20 06-[address] 11:48: 00:00 mouth Hospita 59 :00 daily. l benztropine 3-0 2023- No 1mg Q.5D Take 1 mg Methodi (COGENTIN) 6-20 06-[address] 1 MG tablet 11:48: 00:00 (two) Hosp miranda 49 :00 times a l day. Patient is unsure whether she is taking this medication (verbally stated). benztropine 3-0 Yes 1mg Q.5D Take 1 mg M ethodi (COGENTIN) 2-[address] 1 MG tablet 12:42: (two) Hospi ta 08 times a l day. Patient is unsure whether she is taking this medication (verbally stated). QUEtiapine 3-0 Yes 300mg Q.5D Take 1 Meth matty (SEROquel) 2-[address] 300 MG 12:42: (300 mg Hospita tablet 08 total) by l mouth 2 (two) times a day. 600mg nightly, 300mg daily risperiDONE 3-0 Yes 3mg Q.5D Take 1 Meth matty (RisperDAL) 2-21 tablet (3 st 3 MG tablet 12:42: mg total) H ospita 08 by mouth 2 l (two) times a day. multivitami 3-0 Yes 1{tbl} QD Take 1 Me thodi n tablet 2-[address] 12:42: mouth Hospita 08 daily. l BIOTIN ORAL 3-0 Yes 1{tbl} QD Take 1 Me thodi 2-[address] 12:42: mouth Hospita 08 daily. l HYDROcodone 2021-1 Yes [id number] 15mL Q6H Take 15 mL Methodi -acetaminop 0-[address] hen (HYCET) 00:00: every 6 Hos julian 2.5-108.3 00 (six) l mg/5 mL hours as solution needed for moderate pain .acute pain, chronic pain. Max Daily Amount: 60 mL HYDROcodone 2021-05- No [id number] 15mL Q6H Take 15 mL Methodi -acetaminop 0-20 06-[address] hen (HYCET) 00:00: 00:00 every 6 Ho spita 2.5-108.3 00 :00 (six) l mg/5 mL hours as solution needed for moderate pain .acute pain, chronic pain. Max Daily Amount: 60 mL benadryl/li 2021-05 Yes 10mL Q6H Swish and M ethodi docaine/maa 0-[address] lox (MAGIC 00:00: mL every 6 H ospita MOUTHWASH) 00 (six) l 1:1:1 hours as suspension needed suspension (Esophagit is). benadryl/li 2021-05 Yes 10mL Q6H Swish and M ethodi docaine/maa 0-[address] lox (MAGIC 00:00: mL every 6 H ospita MOUTHWASH) 00 (six) l 1:1:1 hours as suspension needed suspension (Esophagit is). levothyroxi 2021-05 No 75ug QD Take 1 Met hodi ne 0-06 10-07 tablet (75 st (Synthroid) 00:00: 04:59 mcg total) Hospita 75 mcg 00 :00 by mouth l tablet daily. levothyroxi 2021-05 75ug QD Take 1 Met hodi ne 0-06 10-07 tablet (75 st (Synthroid) 00:00: 04:59 mcg total) Hospita 75 mcg 00 :00 by mouth l tablet daily. benztropine Yes 1mg Q.5D Take 1 mg [...] Q.5D Take 3 mg M ethodi (RisperDAL) [address] 3 MG tablet [...] blister with device powder for inhalation fluticasone 2022- No INHALE ONE Methodi furoate-radha 3-15 06-20 (1) PUFF st anteroL 00:00: 00:00 BY MOUTH Hospi ta (Breo 00 :00 DAILY. l Ellipta) 100-25 mcg/dose blister with device powder for inhalation levothyroxi 2022- No 50ug QD Take 1 Met hodi ne 06-01 tablet (50 st (Synthroid) 00:00: 05:59 mcg total) Hospita 50 mcg 00 :00 by mouth l tablet daily. levothyroxi 2022- No 50ug QD Take 1 Met hodi ne 06-01- tablet (50 st (Synthroid) 00:00: 05:59 mcg total) Hospita 50 mcg 00 :00 by mouth l tablet daily. levothyroxi 2021-2022- No 50ug QD Take 1 Met hodi ne 06-01- tablet (50 st (Synthroid) 00:00: 05:59 mcg total) Hospita 50 mcg 00 :00 by mouth l tablet daily. potassium 2021-2021- No [id number] 20meq Me thodi chloride 18 01-18 st (K-DUR) CR 16:15: 16:51 Hospit a tablet 20 00 :00 l mEq benadryl/li 2020-05 No 5mL Q6H Swish and Methodi docaine/maa 05-[address] lox (MAGIC 00:00: 05:59 every 6 Hos julian MOUTHWASH) 00 :00 (six) l 1:1:1 hours for suspension 30 days. suspension fluconazole 2020-05 100mg QD Take 1 Me thodi (Diflucan) 05-[address] 100 MG 00:00: 05:59 (100 mg Hospita tablet 00 :00 total) by l mouth daily for 14 days. predniSONE 2020-05 Take 4 Meth matty (DELTASONE) 05-27 11-[address] 10 mg 00:00: 05:59 [...] No 5mL Q6H Swish and Methodi docaine/maa 05-22-[address] lox (MAGIC 00:00: 00:00 every 6 Hos julian MOUTHWASH) 00 :00 (six) l 1:1:1 hours for suspension 30 days. suspension nystatin 2020-05 No [id number] Q.25D Take 5 mL Methodi (MYCOSTATIN 05-2118 (500,000 st ) 100,000 00:00: 05:59 Units Hospit a unit/mL 00 :00 total) by l suspension mouth 4 (four) times a day for 7 days. Swish in mouth fluticasone 2020-05 No QD Inhale Met hodi -umeclidin- 05-19-[address] vilanter 10:12: 00:00 Hospita (TRELEGY [...] Q8H Take 1 Met hodi (Zofran) 8 0-11 tablet (8 st MG tablet 00:00: 00:00 [...] MG 00:00: nightly. Hospita tablet 00 l mirtazapine 2019-05 No 30mg QD Take 1 Met hodi (REMERON) 0-27 06-22 tablet (30 st 30 MG 00:00: 00:00 mg total) Hospit a tablet 00 :00 by mouth l nightly. PARoxetine 2019-05 Yes QD Take by Meth matty (PAXIL) 30 0-[address] MG tablet 00:00: daily. Hospit a 00 l PARoxetine 2019-05 Yes QD Take by Meth matty (PAXIL) 30 0-[address] MG tablet 00:00: daily. Hospit a 00 l PARoxetine 2019-05- No 60mg QD Take 2 Meth matty (PAXIL) 30 0-02 06-[address] MG tablet 00:00: 00:00 (60 mg Hospi ta 00 :00 total) by l mouth every morning. Breo 2019-05- No INHALE ONE Method i Ellipta 03-19 (1) PUFF st 100-25 00:00: 00:00 BY MOUTH Hospit a mcg/dose 00 :00 DAILY. l blister with device powder for inhalation divalproex 2006-05 Yes Take by Meth matty (DEPAKOTE) 1-[address] 500 MG 24 00:00: Hospita hr tablet 00 l divalproex 2006-05 Yes Take by Meth matty (DEPAKOTE) 1-[address] 500 MG 24 00:00: Hospita hr tablet 00 l divalproex 2006-05 Yes 1500mg QD Take 3 Met hodi (DEPAKOTE) 1-[address] 500 MG 24 00:00: (1,500 mg Hos julian hr tablet 00 total) by l mouth daily. Vital Signs Vital Name Observation Time Observation Value Comments Source Systolic blood 2022-10-31 15:58:21 115 mm[Hg] Method [facility] pressure Diastolic blood 2022-10-31 15:58:21 79 mm[Hg] [facility] pressure Heart rate 2022-10-31 15:58:21 95 /min [facility] Body temperature 2022-10-31 15:58:21 36.67 Shira [facility] Respiratory rate 2022-10-31 15:58:21 19 /min [facility] Oxygen saturation in 2022-10-31 15:58:21 97 /min [facility] Arterial blood by Pulse oximetry Body height 2022-10-20 23:10:00 152.4 cm [facility] Body weight 2022-10-20 23:10:00 74.5 kg [facility] BMI 2022-10-20 23:10:00 32.08 kg/m2 [facility] Systolic blood 2022-07-18 19:30:00 143 mm[Hg] Method [facility] pressure Diastolic blood 2022-07-18 19:30:00 63 mm[Hg] [facility] pressure Heart rate 2022-07-18 19:30:00 103 /min [facility] Body temperature 2022-07-18 19:30:00 36.72 Shira [facility] Respiratory rate 2022-07-18 19:30:00 16 /min [facility] Body height 2022-07-18 19:30:00 152.4 cm [facility] Body weight 2022-07-18 19:30:00 82.555 kg [facility] BMI 2022-07-18 19:30:00 35.54 kg/m2 [facility] Oxygen saturation in 2022-07-18 19:30:00 94 /min [facility] Arterial blood by Pulse oximetry Systolic blood 2022-01-16 19:44:00 124 mm[Hg] Method [facility] pressure Diastolic blood 2022-01-16 19:44:00 80 mm[Hg] [facility] pressure Heart rate 2022-01-16 19:44:00 86 /min [facility] Body temperature 2022-01-16 19:44:00 36.83 Shira [facility] Respiratory rate 2022-01-16 19:44:00 20 /min [facility] Body height 2022-01-16 19:44:00 152.4 cm [facility] Body weight 2022-01-16 19:44:00 84.55 kg [facility] BMI 2022-01-16 19:44:00 36.40 kg/m2 [facility] Oxygen saturation in 2022-01-16 19:44:00 97 /min [facility] Arterial blood by Pulse oximetry Procedures Procedure Date / Time Performing Clinician Source Performed POC GLUCOSE 2022-10-31 14:52:00 Brandy Calvert [facility] POC GLUCOSE 2022-10-31 13:20:00 Brandy Calvert Method [facility] POC GLUCOSE 2022-10-31 09:09:00 Brandy Calvert [facility] POC GLUCOSE 2022-10-31 04:46:00 Brandy Calvert [facility] POC GLUCOSE 2022-10-31 01:28:00 Brandy Calvert [facility] ECG 12-LEAD 2022-10-30 19:17:48 Cj Amaya [facility] POC GLUCOSE 2022-10-30 18:02:00 Brandy Calvert Method [facility] POC GLUCOSE 2022-10-30 14:22:00 Brandy Calvert [facility] POC GLUCOSE 2022-10-30 10:21:00 Brandy Calvert Method [facility] POC GLUCOSE 2022-10-30 05:49:00 Brandy Calvert Method [facility] POC GLUCOSE 2022-10-30 02:03:00 Brandy Calvert [facility] DURABLE MEDICAL EQUIPMENT 2022-10-29 21:32:02 Remedios Duff [facility] POC GLUCOSE 2022-10-29 16:30:00 Brandy Calvert [facility] POC GLUCOSE 2022-10-29 09:57:00 Brandy Calvert [facility] ESTIMATED GFR 2022-10-29 08:48:00 [facility] POC GLUCOSE 2022-10-29 05:11:00 Brandy Calvert Method [facility] POC GLUCOSE 2022-10-29 00:50:00 Brandy Calvert Method [facility] POC GLUCOSE 2022-10-28 18:17:00 Brandy Calvert Method [facility] POC GLUCOSE 2022-10-28 12:40:00 Brandy Calvert Method [facility] POC GLUCOSE 2022-10-28 09:32:00 Brandy Calvert [facility] BASIC METABOLIC PANEL 2022-10-28 05:16:00 [facility] CBC WITH PLATELET AND 2022-10-28 05:16:00 [facility] DIFFERENTIAL IONIZED CALCIUM 2022-10-28 05:16:00 [facility] MAGNESIUM LEVEL 2022-10-28 05:16:00 [facility] PHOSPHORUS LEVEL 2022-10-28 05:16:00 [facility] ESTIMATED GFR 2022-10-28 05:16:00 [facility] 2022-10-28 05:14:00 Brandy Calvert [facility] POC GLUCOSE 2022-10-28 00:48:00 Brandy Calvert Method [facility] POC GLUCOSE 2022-10-27 21:05:00 Brandy Calvert Method [facility] POC GLUCOSE 2022-10-27 16:46:00 Brandy Calvert Method [facility] POC GLUCOSE 2022-10-27 13:14:00 Brandy Calvert Method [facility] POC GLUCOSE 2022-10-27 08:38:00 Brandy Calvert Method [facility] POC GLUCOSE 2022-10-27 08:30:00 Brandy Calvert Method [facility] CT HEAD WO CONTRAST 2022-10-27 08:19:00 Chau Montenegro [facility] BASIC METABOLIC PANEL 2022-10-27 05:32:00 [facility] CBC WITH PLATELET AND 2022-10-27 05:32:00 [facility] DIFFERENTIAL IONIZED CALCIUM 2022-10-27 05:32:00 [facility] MAGNESIUM LEVEL 2022-10-27 05:32:00 [facility] PHOSPHORUS LEVEL 2022-10-27 05:32:00 [facility] ESTIMATED GFR 2022-10-27 05:32:00 [facility]SE 2022-10-27 04:42:00 Brandy Calvert [facility] POC GLUCOSE 2022-10-27 03:40:00 Brandy Calvert [facility] POC GLUCOSE 2022-10-27 00:55:00 Brandy Calvert [facility] POC GLUCOSE 2022-10-26 20:54:00 Brandy Calvert [facility] POC GLUCOSE 2022-10-26 17:06:00 Brandy Calvert [facility] XR CHEST 1 VW PORTABLE 2022-10-26 13:56:32 Luiza [facility] CBC WITH PLATELET AND 2022-10-26 12:57[facility] 2022-10-26 12:35:00 Brandy Calvert [facility] POC GLUCOSE 2022-10-26 09:23:00 Brandy Calvert [facility] CT HEAD WO CONTRAST 2022-10-26 08:52:20 Co, [facility] BASIC METABOLIC PANEL 2022-10-26 05:12:00 [facility] [place] CBC WITH PLATELET AND 2022-10-26 05:12:00 Kian [facility] DIFFERENTIAL [place] IONIZED CALCIUM 2022-10-26 05:12:00 Raudel Langston Ho spital [place] MAGNESIUM LEVEL 2022-10-26 05:12:00 Raudel Langston Ho spital [place] PHOSPHORUS LEVEL 2022-10-26 05:12:00 Raudel Langston H ospital [place] ESTIMATED GFR 2022-10-26 05:12:00 Brandy Calvert [facility] POC GLUCOSE 2022-10-26 04:41:00 Brandy Calvert [facility] ECG 12-LEAD 2022-10-26 04:22:32 Luiza [facility] POC GLUCOSE 2022-10-26 01:24:00 Brandy Calvert [facility] POC GLUCOSE 2022-10-25 21:08:00 Brandy Calvert [facility] POC GLUCOSE 2022-10-25 17:09:00 Brandy Calvert [facility] MRI BRAIN W WO CONTRAST 2022-10-25 15:05:00 [facility] 2022-10-25 13:05:00 Brandy Calvert [facility] XR CHEST 1 VW PORTABLE 2022-10-25 10:53:00 [facility]SE 2022-10-25 09:33:00 Brandy Calvert [facility] ECG 12-LEAD 2022-10-25 07:43:30 [facility] CBC WITH PLATELET AND 2022-10-25 05:30:00 [facility] DIFFERENTIAL [place] ARTERIAL BLOOD GAS 2022-10-25 05:30:00 Vargas [facility] IONIZED CALCIUM, ARTERIAL 2022-10-25 05:30:00 Vargas [facility] BASIC METABOLIC PANEL 2022-10-25 05:29:00 [facility] 2022-10-25 05:29:00 Raudel Langstonist [facility] 2022-10-25 05:29:00 Raudel Langston [facility] EST[facility] GFR 2022-10-25 05:29:00 Brandy Calvert [facility] POC GLUCOSE 2022-10-25 05:27:00 Brandy Calvert [facility] POC GLUCOSE 2022-10-25 01:16:00 Brandy Calvert [facility] XR ABDOMEN 1 VW PORTABLE 2022-10-25 00:22:27 Co, [facility] XR CHEST 1 VW PORTABLE 2022-10-25 00:22:13 Co, [facility] ARTERIAL BLOOD GAS 2022-10-24 23:38:00 Co, [facility] BASIC METABOLIC PANEL 2022-10-24 23:38:00 Co, [facility] MAGNESIUM LEVEL 2022-10-24 23:38:00 Co, [facility] spital PHOSPHORUS LEVEL 2022-10-24 23:38:00 Co, [facility] H ospital LACTIC ACID LEVEL 2022-10-24 23:38:00 Co, [facility] CBC WITH PLATELET AND 2022-10-24 23:38:00 Co, [facility] DIFFERENTIAL IONIZED CALCIUM, ARTERIAL 2022-10-24 23:38:00 Co, [facility] ESTIMATED GFR 2022-10-24 23:38:00 Co, [facility] spital CT HEAD WO CONTRAST 2022-10-24 22:58:43 Raudel Langston [facility] SURGICAL PATHOLOGY 2022-10-24 21:39:00 Brandy Calvert [facility] REQUEST ARTERIAL LINE 2022-10-24 20:06:23 Brandt [facility] CENTRAL LINE 2022-10-24 19:48:10 [facility] [place] AN ELECTIVE 2022-10-24 19:01:00 [facility] CRANIOTOMY 2022-10-24 18:45:00 Dima Abdullahi Tony [facility] TRANSFUSE PLATELET 2022-10-24 10:00:00 Billie Reddy [facility] PHERESIS Marely ARTERIAL BLOOD GAS 2022-10-24 05:19:00 Tabatha Jarrett [facility] IONIZED CALCIUM, ARTERIAL 2022-10-24 05:19:00 Tabatha Jarrett [facility] TYPE AND SCREEN 2022-10-24 05:18:00 Tabatha Jarrett [facility] BASIC METABOLIC PANEL 2022-10-24 05:18:00 Kian [facility] [place] CBC WITH PLATELET AND 2022-10-24 [facility] [place] MAGNESIUM LEVEL 2022-10-24 05:18:[address] [facility] spital [place] PHOSPHORUS LEVEL 2022-10-24 05:18:00 Raudel Langston [facility] ospital [place] ESTIMATED GFR 2022-10-24 05:18:00 Tabatha Jarrett Sharda [facility] PREPARE PLATELET PHERESIS 2022-10-24 05:18:00 [facility]SE 2022-10-24 00:54:00 Brandy Calvert [facility] BASIC METABOLIC PANEL 2022-10-23 05:26:00 Luiza [facility] CBC WITH PLATELET AND 2022-10-23 05:26:00 Luiza [facility] DIFFERENTIAL IONIZED CALCIUM 2022-10-23 05:26:00 Luiza [facility] MAGNESIUM LEVEL 2022-10-23 05:26:00 Tabatha Jarrett [facility] PHOSPHORUS LEVEL 2022-10-23 05:26:00 [facility] 2022-10-23 05:26:00 Tabatha Jarrett [facility] POC GLUCOSE 2022-10-22 21:33:00 Brandy Calvert [facility] AMMONIA LEVEL 2022-10-22 19:03:00 Cj Amaya [facility] VALPROIC ACID LEVEL 2022-10-22 19:03:00 Cj Amaya [facility] CT HEAD WO CONTRAST 2022-10-22 18:22:30 Chau Montenegro [facility] UNMONITORED VIDEO-EEG 2022-10-22 18:09:01 Raegan Sargent [facility] HRS 1MIN-26HRS Liong POC GLUCOSE 2022-10-22 16:28:00 Brandy Calvert [facility] POC GLUCOSE 2022-10-22 13:29:00 Brandy Calvert [facility] POC GLUCOSE 2022-10-22 08:24:00 Brandy Calvert [facility] MAGNESIUM LEVEL 2022-10-22 06:04:00 Jarrett, [facility] PHOSPHORUS LEVEL 2022-10-22 06:04:00 Luiza [facility] IONIZED CALCIUM 2022-10-22 06:04:00 Luiza [facility] BASIC METABOLIC PANEL 2022-10-22 06:04:00 Luiza [facility] CBC WITH PLATELET AND 2022-10-22 06:04:00 Jarrett [facility] DIFFERENTIAL ESTIMATED GFR 2022-10-22 06:04:00 Luiza [facility] EEG SETUP 2022-10-22 05:32:23 Raegan Sargent [facility] POC GLUCOSE 2022-10-22 04:32:00 Nehal, Manoj [facility] POC GLUCOSE 2022-10-22 00:33:00 Nehal, Manoj [facility] PARTIAL THROMBOPLASTIN 2022-10-21 23:53[facility] WITH INR 2022-10-21 23:53:00 Lan [facility] MRI BRAIN W WO CONTRAST 2022-10-21 23:32:00 Lan [facility] POC GLUCOSE 2022-10-21 21:14:00 Nehal, Manoj [facility] EEG (ROUTINE) 2022-10-21 17:43:32 Raegan Sargent [facility] POC GLUCOSE 2022-10-21 16:55:00 Nehal, Manoj [facility] CT CHEST W CONTRAST 2022-10-21 15:23:12 Aureliano Saldana [facility] ABDOMEN W CONTRAST PELVIS W CONTRAST POC GLUCOSE 2022-10-21 12:44:00 Nehal, Manoj [facility] ECG 12-LEAD 2022-10-21 11:42:16 [facility] 2022-10-21 09:54:00 Nehal, Manoj [facility] CBC WITH PLATELET AND 2022-10-21 05:28:00 [facility] COMPREHENSIVE METABOLIC 2022-10-21 05:28:00 Guido, [facility] PANEL ESTIMATED GFR 2022-10-21 05:28:00 Margaux Guido spital SMEAR REVIEW 2022-10-21 05:28:00 Margaux Guido spital POC GLUCOSE 2022-10-21 04:46:00 [facility] CT HEAD WO CONTRAST 2022-10-21 03:39:00 Aureliano Saldana [facility] POC GLUCOSE 2022-10-21 01:09:00 [facility] CBC WITH PLATELET AND 2022-10-21 01:01:00 Arie [facility] DIFFERENTIAL [place] COMPREHENSIVE METABOLIC 2022-10-21 01:01:00 Arie [facility] PANEL Liong MAGNESIUM LEVEL 2022-10-21 01:01:00 Arie [facility] Liong PHOSPHORUS LEVEL 2022-10-21 01:01:00 [facility] 2022-10-21 01:01:00 Arie [facility] Liong TYPE AND SCREEN 2022-10-21 01:01:00 Arie [facility] Liong ESTIMATED GFR 2022-10-21 01:01:00 Arie [facility] Liong POC GLUCOSE 2022-10-20 23:10:00 Margaux Guido spital RAD ONC DAILY TREATMENT 2022-07-26 15:22:25 Provider, Unknown [facility] RAD ONC DAILY TREATMENT 2022-07-24 18:21:01 Provider, Unknown [facility] RAD ONC DAILY TREATMENT 2022-07-22 18:26:14 Provider, Unknown [facility] RAD ONC DAILY TREATMENT 2022-07-18 19:49:09 Provider, Unknown [facility] MRI ABDOMEN W WO CONTRAST 2022-07-16 22:30:00 Marielena Ramsay [facility] RAD ONC DAILY TREATMENT 2022-07-16 20:40:34 Provider, Unknown [facility] MRI CERVICAL SPINE W WO 2022-06-17 17:20:00 Manuel Calvo [facility] CONTRAST MRI BRAIN W WO CONTRAST 2022-06-17 17:15:00 Manuel Calvo [facility] PET CT SKULL BASE TO MID 2022-05-28 18:51:40 Manuel Calvo [facility] THIGH CBC WITH PLATELET AND 2022-05-28 18:04:00 Manuel Calvo [facility] DIFFERENTIAL COMPREHENSIVE METABOLIC 2022-05-28 18:04:00 Manuel Calvo [facility] PANEL MAGNESIUM LEVEL 2022-05-28 18:04:00 Manuel Calvo Ho spital THYROID STIMULATING 2022-05-28 18:04:00 Manuel Calvo [facility] HORMONE T3 2022-05-28 18:04:00 Manuel Calvo Ho spital T4, FREE 2022-05-28 18:04:00 Manuel Calvo spital ESTIMATED GFR 2022-05-28 18:04:00 Manuel Calvo Ho spital MANUAL DIFFERENTIAL 2022-05-28 18:04:00 Manuel Calvo [facility] POC GLUCOSE 2022-05-28 16:26:00 Manuel Calvoist Ho spital CBC WITH PLATELET AND 2022-05-01 17:53:00 Manuel Calvo [facility] DIFFERENTIAL COMPREHENSIVE METABOLIC 2022-05-01 17:53:00 Manuel Calvo [facility] PANEL MAGNESIUM LEVEL 2022-05-01 17:53:00 Manuel Calvo Ho spital THYROID STIMULATING 2022-05-01 17:53:00 Manuel Calvo [facility] HORMONE T3 2022-05-01 17:53:00 Manuel Calvo Ho spital T4, FREE 2022-05-01 17:53:00 Manuel Calvo Ho spital ESTIMATED GFR 2022-05-01 17:53:00 Manuel Calvo Ho spital CBC WITH PLATELET AND 2022-04-02 17:48:00 Manuel Calvo [facility] DIFFERENTIAL COMPREHENSIVE METABOLIC 2022-04-02 17:48:00 Manuel Calvo [facility] PANEL MAGNESIUM LEVEL 2022-04-02 17:48:00 Manuel Calvo Ho spital THYROID STIMULATING 2022-04-02 17:48:00 Manuel Calvo [facility] HORMONE T3 2022-04-02 17:48:00 [facility], FREE 2022-04-02 17:48:00 Manuel Calvo spital ESTIMATED GFR 2022-04-02 17:48:00 [facility] MANUAL DIFFERENTIAL 2022-04-02 17:48:00 Manuel Calvo [facility] RAD ONC COURSE SUMMARY 2022-03-20 14:20:15 Provider, Unknown [facility] RAD ONC DAILY TREATMENT 2022-03-18 20:08:59 Provider, Unknown [facility] RAD ONC DAILY TREATMENT 2022-03-15 17:27:33 Provider, Unknown [facility] RAD ONC DAILY TREATMENT 2022-03-14 18:20:49 Provider, Unknown [facility] RAD ONC DAILY TREATMENT 2022-03-13 18:51:26 Provider, Unknown [facility] RAD ONC DAILY TREATMENT 2022-03-12 18:43:10 Provider, Unknown [facility] RAD ONC DAILY TREATMENT 2022-03-11 20:31:22 Provider, Unknown [facility] RAD ONC DAILY TREATMENT 2022-03-08 17:08:15 Provider, Unknown [facility] MRI BRAIN W WO CONTRAST 2022-03-08 16:08:00 Marielena Ramsay [facility] RAD ONC DAILY TREATMENT 2022-03-07 20:03:00 Provider, Unknown [facility] CBC WITH PLATELET AND 2022-03-06 19:42:00 Manuel Calvo [facility] DIFFERENTIAL COMPREHENSIVE METABOLIC 2022-03-06 19:42:00 Manuel Calvo [facility] PANEL MAGNESIUM LEVEL 2022-03-06 19:42:00 [facility] THYROID STIMULATING 2022-03-06 19:42:00 Manuel Calvo [facility] HORMONE T3 2022-03-06 19:42:00 Manuel Calvo spital T4, FREE 2022-03-06 19:42:00 [facility] ESTIMATED GFR 2022-03-06 19:42:00 Manuel Calvo spital MANUAL DIFFERENTIAL 2022-03-06 19:42:00 Manuel Calvo [facility] RAD ONC DAILY TREATMENT 2022-03-06 18:57:31 Provider, Unknown [facility] RAD ONC DAILY TREATMENT 2022-03-05 19:29:30 Provider, Unknown [facility] RAD ONC DAILY TREATMENT 2022-03-04 18:24:12 Provider, Unknown [facility] RAD ONC DAILY TREATMENT 2022-03-01 19:46:04 Provider, Unknown [facility] RAD ONC DAILY TREATMENT 2022-02-28 20:13:22 Provider, Unknown [facility] RAD ONC DAILY TREATMENT 2022-02-27 20:28:42 Provider, Unknown [facility] RAD ONC DAILY TREATMENT 2022-02-26 20:36:08 Provider, Unknown [facility] RAD ONC DAILY TREATMENT 2022-02-25 19:36:27 Provider, Unknown [facility] RAD ONC DAILY TREATMENT 2022-02-22 20:26:13 Provider, Unknown [facility] RAD ONC DAILY TREATMENT 2022-02-21 20:31:32 Provider, Unknown [facility] RAD ONC DAILY TREATMENT 2022-02-20 20:27:20 Provider, Unknown [facility] RAD ONC DAILY TREATMENT 2022-02-19 22:25:50 Provider, Unknown [facility] RAD ONC DAILY TREATMENT 2022-02-18 20:27:27 Provider, Unknown [facility] RAD ONC DAILY TREATMENT 2022-02-15 20:09:22 Provider, Unknown [facility] RAD ONC DAILY TREATMENT 2022-02-14 20:31:50 Provider, [facility] RAD ONC DAILY TREATMENT 2022-02-13 18:38:55 Provider, Unknown [facility] RAD ONC DAILY TREATMENT 2022-02-12 20:16:34 Provider, Unknown [facility] RAD ONC DAILY TREATMENT 2022-02-11 18:34:11 Provider, Unknown [facility] RAD ONC DAILY TREATMENT 2022-02-08 20:19:58 Provider, Unknown [facility] RAD ONC DAILY TREATMENT 2022-02-07 20:02:52 Provider, Unknown [facility] RAD ONC DAILY TREATMENT 2022-02-06 21:37:52 Provider, [facility] RAD ONC DAILY TREATMENT 2022-02-05 21:43:41 Provider, Unknown [facility] CBC WITH PLATELET AND 2022-02-05 17:16:00 Manuel Calvo [facility] DIFFERENTIAL COMPREHENSIVE METABOLIC 2022-02-05 17:16:00 Manuel Calvo [facility] PANEL MAGNESIUM LEVEL 2022-02-05 17:16:00 Manuel Calvo Ho spital THYROID STIMULATING 2022-02-05 17:16:00 Manuel Calvo [facility] HORMONE T3 2022-02-05 17:16:00 Manuel Calvo Ho spital T4, FREE 2022-02-05 17:16:00 Manuel Calvo Ho spital ESTIMATED GFR 2022-02-05 17:16:00 Manuel Calvo Ho spital MANUAL DIFFERENTIAL 2022-02-05 17:16:00 Manuel Calvo [facility] RAD ONC COURSE SUMMARY 2022-01-23 16:59:07 Provider, Unknown [facility] PET CT SKULL BASE TO MID 2022-01-08 14:36:07 Manuel Calvo [facility] THIGH CBC WITH PLATELET AND 2022-01-08 14:36:00 Manuel Calvo [facility] DIFFERENTIAL COMPREHENSIVE METABOLIC 2022-01-08 14:36:00 Manuel Calvo [facility] PANEL MAGNESIUM LEVEL 2022-01-08 14:36:00 Manuel Calvo Ho spital THYROID STIMULATING 2022-01-08 14:36:00 Manuel Calvo [facility] HORMONE T3, FREE 2022-01-08 14:36:00 Manuel Calvoist Ho spital T4, FREE 2022-01-08 14:36:00 Manuel Calvo Ho spital ESTIMATED GFR 2022-01-08 14:36:00 Manuel Calvo Ho spital T3 2022-01-08 14:36:00 Manuel Calvo Ho spital ESTIMATED GFR 2022-01-08 14:20:00 Manuel Calvo Ho spital POC GLUCOSE 2022-01-08 12:53:00 Manuel Calvo Ho spital CBC WITH PLATELET AND 2021-12-11 14:36:00 Manuel Calvo [facility] DIFFERENTIAL COMPREHENSIVE METABOLIC 2021-12-11 14:36:00 Manuel Calvo [facility] PANEL MAGNESIUM LEVEL 2021-12-11 14:36:00 Manuel Calvo Ho spital THYROID STIMULATING 2021-12-11 14:36:00 Manuel Calvo [facility] HORMONE T3 2021-12-11 14:36:00 [facility] T4, FREE 2021-12-11 14:36:00 Manuel Calvoist Ho spital ESTIMATED GFR 2021-12-11 14:36:00 Manuel [facility]vo [facility] CHEST W CONTRAST 2021-11-13 18:58:59 [place] [facility] CBC WITH PLATELET AND 2021-11-13 16:36:00 Manuel Calvo [facility] DIFFERENTIAL CBC WITH PLATELET AND 2021-11-13 16:36:00 Manuel Calvo [facility] DIFFERENTIAL COMPREHENSIVE METABOLIC 2021-11-13 16:36:00 Manuel Calvo [facility] PANEL MAGNESIUM LEVEL 2021-11-13 16:36:00 Manuel Calvoist Ho spital THYROID STIMULATING 2021-11-13 16:36:00 Manuel Calvo [facility] HORMONE T3 2021-11-13 16:36:00 Manuel Calvo Ho spital T4, FREE 2021-11-13 16:36:00 Manuel Calvo Ho spital ESTIMATED GFR 2021-11-13 16:36:00 Manuel Calvo Ho spital MANUAL DIFFERENTIAL 2021-11-13 16:36:00 Manuel Calvo [facility] CBC WITH PLATELET AND 2021-10-16 14:26:00 Manuel Calvo [facility] DIFFERENTIAL COMPREHENSIVE METABOLIC 2021-10-16 14:26:00 Manuel Calvo [facility] PANEL MAGNESIUM LEVEL 2021-10-16 14:26:00 Manuel Calvoist Ho spital THYROID STIMULATING 2021-10-16 14:26:00 Manuel Calvo [facility] HORMONE T3 2021-10-16 14:26:00 Manuel Calvo [facility] T4, FREE 2021-10-16 14:26:00 Manuel Calvo [facility] ESTIMATED GFR 2021-10-16 14:26:00 Manuel Calvo [facility] MANUAL DIFFERENTIAL 2021-10-16 14:26:00 Manuel Calvo [facility] CBC WITH PLATELET AND 2021-09-18 14:10:00 Manuel Calvo [facility] DIFFERENTIAL COMPREHENSIVE METABOLIC 2021-09-18 14:10:00 [place] [facility] PANEL MAGNESIUM LEVEL 2021-09-18 14:10:00 Manuel Calvo Ho spital THYROID STIMULATING 2021-09-18 14:10:00 Manuel Calvo [facility] HORMONE T3 2021-09-18 14:10:00 Manuel Calvo Ho spital T4, FREE 2021-09-18 14:10:00 Manuel Calvo Ho spital ESTIMATED GFR 2021-09-18 14:10:00 Manuel Calvo spital MANUAL DIFFERENTIAL 2021-09-18 14:10:00 Manuel Calvo [facility] HC COMPLETE BLD COUNT 2021-08-21 14:01:00 Manuel Calvo [facility] W/AUTO DIFF COMPREHENSIVE METABOLIC 2021-08-21 14:01:00 Manuel Calvo [facility] PANEL MAGNESIUM LEVEL 2021-08-21 14:01:00 Manuel Calvo Ho spital THYROID STIMULATING 2021-08-21 14:01:00 Manuel Calvo [facility] HORMONE T3 2021-08-21 14:01:00 Manuel Calvo Ho spital T4, FREE 2021-08-21 14:01:00 Manuel Calvo Ho spital ESTIMATED GFR 2021-08-21 14:01:00 Manuel Calvo Ho spital MRI BRAIN W WO CONTRAST 2021-08-17 17:05:13 Manuel Calvo [facility] PET CT SKULL BASE TO MID 2021-08-17 16:18:00 Manuel Calvo [facility] THIGH POC GLUCOSE 2021-08-17 14:39:00 Manuel Calvo Ho spital HC COMPLETE BLD COUNT 2021-07-24 15:06:00 Manuel Calvo [facility] W/AUTO DIFF COMPREHENSIVE METABOLIC 2021-07-24 15:06:00 Manuel Calvo [facility] PANEL MAGNESIUM LEVEL 2021-07-24 15:06:00 Manuel Calvo Ho spital THYROID STIMULATING 2021-07-24 15:06:00 Manuel Calvo [facility] HORMONE T3 2021-07-24 15:06:00 Manuel Calvo Ho spital T4, FREE 2021-07-24 15:06:00 Manuel Calvo Ho spital ESTIMATED GFR 2021-07-24 15:06:00 Manuel Calvo Ho spital HC COMPLETE BLD COUNT 2021-06-26 15:57:00 Manuel Calvo [facility] W/AUTO DIFF COMPREHENSIVE METABOLIC 2021-06-26 15:57:00 [place] [facility] PANEL MAGNESIUM LEVEL 2021-06-26 15:57:00 Manuel Calvo [facility] THYROID STIMULATING 2021-06-26 15:57:00 [place] [facility] HORMONE T3 2021-06-26 15:57:00 Manuel Calvoist Ho spital T4, FREE 2021-06-26 15:57:00 Manuel Calvo [facility] ESTIMATED GFR 2021-06-26 15:57:00 Manuel Calvoist Ho spital CBC WITH PLATELET AND 2021-05-29 13:57:00 [place] [facility] DIFFERENTIAL COMPREHENSIVE METABOLIC 2021-05-29 13:57:00 [place] [facility] PANEL MAGNESIUM LEVEL 2021-05-29 13:57:00 Manuel Calvoist Ho spital THYROID STIMULATING 2021-05-29 13:57:00 [place] [facility] HORMONE T3 2021-05-29 13:57:00 Manuel Calvo [facility] T4, FREE 2021-05-29 13:57:00 Manuel Calvoist Ho spital ESTIMATED GFR 2021-05-29 13:57:00 [facility] MANUAL DIFFERENTIAL 2021-05-29 13:57:00 Calvo [facility] CT CHEST W CONTRAST 2021-05-22 17:14:16 [facility] RAD ONC COURSE SUMMARY 2021-04-27 19:56:56 Provider, Unknown [facility] COMPLETE BLD COUNT 2021-04-24 14:32:00 Manuel Calvo [facility] W/AUTO DIFF COMPREHENSIVE METABOLIC 2021-04-24 14:32:00 [place] [facility] PANEL MAGNESIUM LEVEL 2021-04-24 14:32:00 Manuel Calvoist Ho spital ESTIMATED GFR 2021-04-24 14:32:00 [place] [facility] Ho spital RAD ONC DAILY TREATMENT 2021-04-24 13:24:35 Provider, Unknown [facility] RAD ONC DAILY TREATMENT 2021-04-23 16:45:25 Provider, Unknown [facility] RAD ONC DAILY TREATMENT 2021-04-20 16:45:46 Provider, Unknown [facility] RAD ONC DAILY TREATMENT 2021-04-19 17:14:34 Provider, Unknown [facility] RAD ONC DAILY TREATMENT 2021-04-18 17:29:35 Provider, Unknown [facility] HC COMPLETE BLD COUNT 2021-04-17 14:02:00 Manuel Calvo [facility] W/AUTO DIFF COMPREHENSIVE METABOLIC 2021-04-17 14:02:00 [place] [facility] PANEL ESTIMATED GFR 2021-04-17 14:02:00 Manuel Calvoist Ho spital MAGNESIUM LEVEL 2021-04-17 14:02:00 Manuel Calvoist Ho spital RAD ONC DAILY TREATMENT 2021-04-17 13:11:43 Provider, Unknown [facility] RAD ONC DAILY TREATMENT 2021-04-16 16:51:36 Provider, Unknown [facility] RAD ONC DAILY TREATMENT 2021-04-13 17:37:41 Provider, Unknown [facility] RAD ONC DAILY TREATMENT 2021-04-12 17:27:38 Provider, Unknown [facility] RAD ONC DAILY TREATMENT 2021-04-11 17:41:13 Provider, Unknown [facility] HC COMPLETE BLD COUNT 2021-04-10 17:09:00 Manuel Calvo [facility] W/AUTO DIFF COMPREHENSIVE METABOLIC 2021-04-10 17:09:00 [place] [facility] PANEL MAGNESIUM LEVEL 2021-04-10 17:09:00 Manuel Calvoist Ho spital ESTIMATED GFR 2021-04-10 17:09:00 Manuel Calvo [facility] RAD ONC DAILY TREATMENT 2021-04-10 16:18:41 Provider, Unknown [facility] RAD ONC DAILY TREATMENT 2021-04-09 17:12:42 Provider, Unknown [facility] RAD ONC DAILY TREATMENT 2021-04-04 16:46:28 Provider, Unknown [facility] RAD ONC DAILY TREATMENT 2021-04-03 16:52:47 Provider, Unknown [facility] CBC WITH PLATELET AND 2021-04-02 14:42:00 Manuel Calvo [facility] DIFFERENTIAL COMPREHENSIVE METABOLIC 2021-04-02 14:42:00 [place] [facility] PANEL MAGNESIUM LEVEL 2021-04-02 14:42:00 Manuel Calvo spital ESTIMATED GFR 2021-04-02 14:42:00 Manuel Calvo spital MANUAL DIFFERENTIAL 2021-04-02 14:42:00 Manuel Calvo [facility] RAD ONC DAILY TREATMENT 2021-04-02 13:51:59 Provider, Unknown [facility] RAD ONC DAILY TREATMENT 2021-03-30 16:51:51 Provider, Unknown [facility] RAD ONC DAILY TREATMENT 2021-03-29 17:12:14 Provider, Unknown [facility] RAD ONC DAILY TREATMENT 2021-03-28 16:14:16 Provider, Unknown [facility] RAD ONC DAILY TREATMENT 2021-03-27 21:51:17 Provider, Unknown [facility] COVID-19 ANTI-SPIKE IGG 2021-03-27 10:00:00 [facility] ANTIBODY TITER COVID-19 SEROLOGY PATIENT 2021-03-27 10:00:00 [facility] HC COMPLETE BLD COUNT 2021-03-27 09:31:00 [facility] W/AUTO DIFF BASIC METABOLIC PANEL 2021-03-27 09:31:00 [facility] MAGNESIUM LEVEL 2021-03-27 09:31:00 [facility] ospital PHOSPHORUS LEVEL 2021-03-27 09:31:00 [facility] HEPATIC FUNCTION PANEL 2021-03-27 09:31:00 [facility] URIC ACID LEVEL 2021-03-27 09:31:00 [facility] ospital LDH 2021-03-27 09:31:00 [facility] ESTIMATED GFR 2021-03-27 09:31:[address] [facility]sp[facility] CT CHEST WO CONTRAST 2021-03-27 03:19:25 [facility] COVID-19 QUALITATIVE 2021-03-27 02:00:00 Manuel Calvo [facility] RT-PCR ECG 12-LEAD 2021-03-27 01:39:50 [facility] CBC WITH PLATELET AND 2021-03-26 16:01:00 [place] [facility] DIFFERENTIAL COMPREHENSIVE METABOLIC 2021-03-26 16:01:00 [place] [facility] PANEL MAGNESIUM LEVEL 2021-03-26 16:01:00 Manuel Calvoist Ho spital ESTIMATED GFR 2021-03-26 16:01:00 [facility] MANUAL DIFFERENTIAL 2021-03-26 16:01:00 [facility] RAD ONC DAILY TREATMENT 2021-03-26 14:12:43 Provider, Unknown [facility] HC COMPLETE BLD COUNT 2021-03-19 14:23:00 [place] [facility] W/AUTO DIFF COMPREHENSIVE METABOLIC 2021-03-19 [facility]:23[facility]ESI[facility] LEV[facility] 2021-03-19 14:23:00 Manuel Calvoist Ho spital ESTIMATED GFR 2021-03-19 14:23:00 Manuel Calvoist Ho spital HC COMPLETE BLD COUNT 2021-03-12 16:45:00 [place] [facility] W/AUTO DIFF COMPREHENSIVE METABOLIC 2021-03-12 16:45:00 [facility]EL MAGNESIUM LEVEL 2021-03-12 16:45:00 Manuel Calvoist Ho spital ESTIMATED GFR 2021-03-12 16:45:00 [place] [facility] Ho spital HC COMPLETE BLD COUNT 2021-03-05 13:[facility] COMPREHENSIVE METABOLIC 2021-03-05 [facility]:00[facility]EL MAGNESIUM LEVEL 2021-03-05 13:00:00 Manuel Calvoist Ho spital ESTIMATED GFR 2021-03-05 13:00:00 Manuel Calvoist Ho spital MRI BRAIN W WO CONTRAST 2021-02-22 13:35:[address] [facility] [facility] [address] [facility] 2021-02-07 16:11:00 [facility] [facility] [facility] ABDOMEN W CONTRAST PELVIS W CONTRAST XR CHEST 1 VW PORTABLE 2021-01-29 20:03:00 [facility]01[facility]29 19:18:00 Donta Lynn [facility] (NON-GYNECOLOGICAL) REQUEST CYTOLOGY 2021-01-29 19:01:00 Donta Lynn [facility] (NON-GYNECOLOGICAL) REQUEST OK AN ELECTIVE 2021-01-29 18:34:31 Hugh Damon [facility] ospital ENDOTRACHEAL AIRWAY BRONCHOSCOPY 2021-01-29 18:05:00 Donta Lynn [facility] US, ENDOBRONCHIAL 2021-01-29 18:05:00 Donta Lynn [facility] ABO AND RH CONFIRMATION 2021-01-29 15:18:00 Donta Lynn [facility] BY PROTOCOL COVID-19 QUALITATIVE 2021-01-25 16:57:00 Donta Lynn [facility] RT-PCR TYPE AND SCREEN 2021-01-25 16:57:00 Donta Lynn [facility] PROTHROMBIN TIME WITH INR 2021-01-25 16:57:00 Donta Lynn [facility] PARTIAL THROMBOPLASTIN 2021-01-25 16:57:00 Donta Lynn [facility] TIME (PTT) COMPREHENSIVE METABOLIC 2021-01-25 16:57:00 Donta Lynn [facility] PANEL HC COMPLETE BLD COUNT 2021-01-25 16:57:00 Donta Lynn [facility] W/AUTO DIFF ESTIMATED GFR 2021-01-25 16:57:00 Donta Lynn [facility] ECG 12-LEAD 2021-01-25 16:45:56 Donta Lynn [facility] Plan of Care Planned Activity Planned Date Details Comments Source Future Scheduled 2022-11-06 Screening for [facility] Test 08:40:04 malignant neoplasm of colon (procedure) [code = 694944244] Future Scheduled 2022-11-06 Screening for [facility] Test 08:40:04 malignant neoplasm of colon (procedure) [code = 527409907] Future Scheduled 2022-11-06 Screening for [facility] Test 08:40:04 malignant neoplasm of colon (procedure) [code = 453625619] Future Scheduled 2022-11-06 Pneumococcal Vaccine: [facility] Test 08:40:04 Pediatrics (0 to 5 Years) and At-Risk Patients (6 to 64 Years) (1 - PCV) [code = Pneumococcal Vaccine: Pediatrics (0 to 5 Years) and At-Risk Patients (6 to 64 Years) (1 - PCV)] Future Scheduled 2022-11-06 SHINGLES VACCINES (1 [facility] Test 08:40:04 of 2) [code = SHINGLES VACCINES (1 of 2)] Future Scheduled 2022-11-06 Screening for [facility] Test 08:40:04 malignant neoplasm of cervix (procedure) [code = 653992005] Future Scheduled 2022-11-06 BREAST CANCER [facility] Test 08:40:04 SCREENING [code = BREAST CANCER SCREENING] Future Scheduled 2022-11-06 Screening for [facility] Test 08:40:04 malignant neoplasm of colon (procedure) [code = 547879697] Future Scheduled 2022-11-06 Screening for [facility] Test 08:40:04 malignant neoplasm of colon (procedure) [code = 407579666] Future Scheduled 2022-11-06 COVID-19 VACCINE (3 - [facility] Test 08:40:04 Pfizer risk series) [code = COVID-19 VACCINE (3 - Pfizer risk series)] Future Scheduled 2022-11-06 HEPATITIS B VACCINES [facility] Test 08:40:04 (1 of 3 - Risk 3-dose series) [code = HEPATITIS B VACCINES (1 of 3 - Risk 3-dose series)] Future Scheduled 2022-11-06 INFLUENZA VACCINE Method [facility] Test 08:40:04 [code = INFLUENZA VACCINE] Future Scheduled 2022-10-17 Screening for [facility] Test 15:03:07 malignant neoplasm of colon (procedure) [code = 422261290] Future Scheduled 2022-10-17 Screening for [facility] Test 15:03:07 malignant neoplasm of colon (procedure) [code = 202981444] Future Scheduled 2022-10-17 Screening for [facility] Test 15:03:07 malignant neoplasm of colon (procedure) [code = 942113444] Future Scheduled 2022-10-17 Pneumococcal Vaccine: [facility] Test 15:03:07 Pediatrics (0 to 5 Years) and At-Risk Patients (6 to 64 Years) (1 - PCV) [code = Pneumococcal Vaccine: Pediatrics (0 to 5 Years) and At-Risk Patients (6 to 64 Years) (1 - PCV)] Future Scheduled 2022-10-17 SHINGLES VACCINES (1 [facility] Test 15:03:07 of 2) [code = SHINGLES VACCINES (1 of 2)] Future Scheduled 2022-10-17 Screening for [facility] Test 15:03:07 malignant neoplasm of cervix (procedure) [code = 678130093] Future Scheduled 2022-10-17 BREAST CANCER [facility] Test 15:03:07 SCREENING [code = BREAST CANCER SCREENING] Future Scheduled 2022-10-17 Screening for [facility] Test 15:03:07 malignant neoplasm of colon (procedure) [code = 185739931] Future Scheduled 2022-10-17 Screening for [facility] Test 15:03:07 malignant neoplasm of colon (procedure) [code = 499256963] Future Scheduled 2022-10-17 COVID-19 VACCINE (3 - [facility] Test 15:03:07 Pfizer risk series) [code = COVID-19 VACCINE (3 - Pfizer risk series)] Future Scheduled 2022-10-17 HEPATITIS B VACCINES [facility] Test 15:03:07 (1 of 3 - Risk 3-dose series) [code = HEPATITIS B VACCINES (1 of 3 - Risk 3-dose series)] Future Scheduled 2022-10-17 INFLUENZA VACCINE Method [facility] Test 15:03:07 [code = INFLUENZA VACCINE] Future Scheduled 2022-01-21 HEPATITIS B VACCINES [facility] Test 11:09:47 (1 of 3 - 3-dose series) [code = HEPATITIS B VACCINES (1 of 3 - 3-dose series)] Future Scheduled 2022-01-21 Pneumococcal Vaccine: [facility] Test 11:09:47 Pediatrics (0 to 5 Years) and At-Risk Patients (6 to 64 Years) (1 - PCV) [code = Pneumococcal Vaccine: Pediatrics (0 to 5 Years) and At-Risk Patients (6 to 64 Years) (1 - PCV)] Future Scheduled 2022-01-21 SHINGLES VACCINES (1 [facility] Test 11:09:47 of 2) [code = SHINGLES VACCINES (1 of 2)] Future Scheduled 2022-01-21 Screening for [facility] Test 11:09:47 malignant neoplasm of cervix (procedure) [code = 717394450] Future Scheduled 2022-01-21 BREAST CANCER [facility] Test 11:09:47 SCREENING [code = BREAST CANCER SCREENING] Future Scheduled 2022-01-21 COLONOSCOPY SCREENING [facility] Test 11:09:47 [code = COLONOSCOPY SCREENING] Future Scheduled 2022-01-21 COVID-19 VACCINE (3 - [facility] Test 11:09:47 Pfizer risk series) [code = COVID-19 VACCINE (3 - Pfizer risk series)] Future Scheduled 2022-01-21 INFLUENZA VACCINE Method [facility] Test 11:09:47 [code = INFLUENZA VACCINE] Encounters Start End Encounter Admission Attending Care Care Encounter Source Date/Time Date/Time Type Type Clinicians Facility Department ID 2022-11-06 2022-11-06 Telephone Devendra 1.2.840.1 [id number] Methodi 00:00:00 00:00:00 Marielena Tirado 31328.1.[address] 3.430.2.7 Hospit a .3.181641 l .8 2022-11-05 2022-11-[address]840[address]1 [id number] Methodi 09:50:12 09:50:12 Encounter Marielena Tirado [address]00.1.[address] 3.430.2.7 Hospit a .3.454171 l .8 2022-11-05 2022-11-05 Outpatient [facility] [id number] [address] [place] [id number] 00:00:00 00:00:[address] MAR[address]NA [address] 2022-11-05 2022-11-05 Orders [facility], 1.2.840.1 [id number] Methodi 00:00:00 00:00:00 Only Margaret 74288.1.[address] 3.430.2.7 Hospit a .3.962805 l .8 2022-11-01 2022-11-01 Telephone Manuel Calvo 1.2.840.1 [id number] 2 [id number] Methodi 00:00:00 00:00:[address] 3.430.2.7 Hospit a .3.874689 l .8 2022-10-20 2022-10-31 Hospital Margaux Guido 1.2.840.1 [id number] Methodi 18:01:00 13:10:00 Encounter Brandy Calvert 00136.1.[address] 3.430.2.7 Hospit a .3.854625 l .8 2022-10-31 2022-10-31 Telephone [facility], 1.2.840.1 [id number] 2100 [id number] Methodi 00:00:00 00:00:[address] 3.430.2.7 Hospit a .3.952636 l .8 2022-10-20 2022-10-31 Inpatient NEHAL [facility] [id number] [place] 00:00:00 00:00:[address] 2022-10-24 2022-10-24 Anesthesia Guille Hansen 1.2.840.1 [id number] Methodi 13:40:00 18:04:00 Event Franky Jessica 30349.1.[address] 3.430.2.7 Hospit a .3.675454 l .8 2022-10-24 2022-10-24 Surgery Bradly, 1.2.840.1 [id number] 7374 Methodi 13:00:00 17:55:[address]271.1.[address] 3.430.2.7 Hospit a .3.064800 l .8 2022-10-20 2022-10-20 Travel 1.2.840.1 1.2.146.990 7728 [id number] Methodi 00:00:00 00:00:[address] 3.430.2.7 0.2.7.3.698 Ho spita .3.373202 084.8 l .8 2022-05-01 2022-08-13 Office Manuel Calvo 1.2.840.1 [id number] 265 [id number] Methodi 11:40:00 13:58:[address] 3.430.2.7 Hospit a .3.301069 l .8 2022-05-01 2022-08-13 Office Manuel Calvo 1.2.840.1 [id number] 539 [id number] Methodi 11:40:00 13:58:[address] 3.430.2.7 Hospit a .3.068785 l .8 2022-07-26 2022-07-26 [facility] 1.2.840.1 [id number] 41222 48021 Methodi 10:00:00 10:22:24 Encounter Edyary Ramires. 44797.1.[address] 3.430.2.7 Hospit a .3.517477 l .8 2022-07-26 2022-07-26 [facility] 1.2.840.1 [id number] 51637 Methodi 10:00:00 10:22:24 Encounter Edyary Ramires. 89202.1.[address] 3.430.2.7 Hospit a .3.328154 l .8 2022-07-26 2022-07-26 Telephone Manuel Calvo 1.2.840.1 [id number] 2 [id number] Methodi 00:00:00 00:00:[address] 3.430.2.7 Hospit a .3.408264 l .8 2022-07-26 2022-07-26 Orders Provider, 1.2.840.1 [id number] 2100 [id number] Methodi 00:00:00 00:00:00 Only Unknown 99938.1.[address] 3.430.2.7 Hospit a .3.249877 l .8 2022-07-26 2022-07-26 Telephone Manuel Calvo 1.2.840.1 [id number] 2 [id number] Methodi 00:00:00 00:00:[address] 3.430.2.7 Hospit a .3.458122 l .8 2022-07-26 2022-07-26 Orders Provider, 1.2.840.1 [id number] 2100 [id number] Methodi 00:00:00 00:00:00 Only Unknown 13325.1.[address] 3.430.2.7 Hospit a .3.464486 l .8 2022-07-24 2022-07-24 [facility], 1.2.840.1 [id number] 45734 Methodi 12:49:05 13:21:00 Encounter Edyary Ramires. 85636.1.[address] 3.430.2.7 Hospit a .3.147105 l .8 2022-07-24 2022-07-24 [facility], 1.2.840.1 [id number] 21001 07988 Methodi 12:49:05 13:21:00 Encounter Edyary Ramires. 79949.1.[address] 3.430.2.7 Hospit a .3.198463 l .8 2022-07-24 2022-07-24 Orders Provider, 1.2.840.1 [id number] 2100 [id number] Methodi 00:00:00 00:00:00 Only Unknown 77263.1.[address] 3.430.2.7 Hospit a .3.784810 l .8 2022-07-24 2022-07-24 Orders Provider, 1.2.840.1 [id number] 2100 [id number] Methodi 00:00:00 00:00:00 Only Unknown 26966.1.[address] 3.430.2.7 Hospit a .3.226976 l .8 2022-07-22 2022-07-22 [facility], 1.2.840.1 [id number] [id number] Methodi 13:00:00 13:26:12 Encounter Edward B. 46742.1.[address] 3.430.2.7 Hospit a .3.140877 l .8 2022-07-22 2022-07-22 [facility], 1.2.840.1 [id number] Methodi 13:00:00 13:26:12 Encounter Edward B. 52450.1.[address] 3.430.2.7 Hospit a .3.250590 l .8 2022-07-22 2022-07-22 Orders Provider, 1.2.840.1 [id number] 2099 [id number] Methodi 00:00:00 00:00:00 Only Unknown 39583.1.[address] 3.430.2.7 Hospit a .3.548020 l .8 2022-07-22 2022-07-22 Orders Provider, 1.2.840.1 [id number] 2099 [id number] Methodi 00:00:00 00:00:00 Only Unknown 36346.1.[address] 3.430.2.7 Hospit a .3.497479 l .8 2022-07-18 2022-07-19 [facility] 46704 1011 [id number] Methodi 13:30:00 08:04:51 Encounter Colleen Mcelroy 99109.1.[address] 3.430.2.7 Hospit a .3.341268 l .8 2022-07-18 2022-07-19 [facility]1 26390 1011 [id number] Methodi 13:30:00 08:04:51 Encounter Colleen Mcelroy 13281.1.[address] 3.430.2.7 Hospit a .3.140134 l .8 2022-07-19 2022-07-19 Telephone Salvatore, 1.2.840.1 [id number] 264 [id number] Methodi 00:00:00 00:00:00 Magui Ram [address]374.1.[address] 3.430.2.7 Hospit a .3.872514 l .8 2022-07-19 2022-07-19 Orders Manuel Calvo 1.2.840.1 [id number] 549 [id number] Methodi 00:00:00 00:00:[address] 3.430.2.7 Hospit a .3.083229 l .8 2022-07-19 2022-07-19 Telephone Salvatore 1.2.840.1 [id number] 327 [id number] Methodi 00:00:00 00:00:[address] Magui [address]10[address]1.[address] 3.430.2.7 Hospit a .3.219240 l .8 2022-07-19 2022-07-19 Orders Calvo Manuel 1.2.840.1 [id number] 917 [id number] Methodi 00:00:00 00:00:[address] 3.430.2.7 Hospit a .3.210738 l .8 2022-07-18 2022-07-18 [facility] 1.2.840.1 [id number] 54462 Methodi 13:15:00 13:49:09 Encounter Marielena Tirado 49634.1.[address] 3.430.2.7 Hospit a .3.505189 l .8 2022-07-18 2022-07-18 [facility] 1.2.840.1 05607 Methodi 13:15:00 13:49:09 Encounter Marielena Tirado 13438.1.[address] 3.430.2.7 Hospit a .3.544163 l .8 2022-07-18 2022-07-18 Travel 1.2.840.1 1.2.103.791 1235 901590 Methodi 00:00:00 00:00:[address] 3.430.2.7 0.2.7.3.698 [facility]8 [facility] .8 2022-07-18 2022-07-18 Orders Provider, 1.2.840.1 [id number] 2099 [id number] Methodi 00:00:00 00:00:00 Only Unknown 92261.1.[address] 3.430.2.7 Hospit a .3.750229 l .8 2022-07-18 2022-07-18 Travel 1.2.840.1 1.2.718.211 9914 197902 Methodi 00:00:00 00:00:[address] 3.430.2.7 0.2.7.3.698 Ho spita .3.248692 084.8 l .8 2022-07-18 2022-07-18 Orders Provider, 1.2.840.1 [id number] 2100 [id number] Methodi 00:00:00 00:00:00 Only Unknown 80858.1.[address] 3.430.2.7 Hospit a .3.415688 l .8 2022-07-16 2022-07-16 [facility], 1.2.840.1 [id number] 58005 Methodi 15:17:21 23:59:00 Encounter Marielena iTrado 88701.1.[address] 3.430.2.7 Hospit a .3.485304 l .8 2022-07-16 2022-07-16 [facility], 1.2.840.1 [id number] 09723 Methodi 15:17:21 23:59:00 Encounter Marielena Tirado 06374.1.[address] 3.430.2.7 Hospit a .3.226679 l .8 2022-07-16 2022-07-16 [facility], 1.2.840.1 [id number] 21001 91499 Methodi 13:00:00 14:40:33 Encounter Marielena Ram. 14159.1.[address] 3.430.2.7 Hospit a .3.969184 l .8 2022-07-16 2022-07-16 [facility], 1.2.840.1 [id number] 21001 32034 Methodi 13:00:00 14:40:33 Encounter Marielena Ram. 64581.1.[address] 3.430.2.7 Hospit a .3.500298 l .8 2022-07-16 2022-07-16 Travel 1.2.840.1 1.2.530.006 4593 738846 Methodi 00:00:00 00:00:[address] 3.430.2.7 0.2.7.3.698 Ho spita .3.231362 084.8 l .8 2022-07-16 2022-07-16 Orders Provider, 1.2.840.1 [id number] 2099 [id number] Methodi 00:00:00 00:00:00 Only Unknown 13799.1.[address] 3.430.2.7 Hospit a .3.515265 l .8 2022-07-16 2022-07-16 Travel 1.2.840.1 1.2.158.121 7980 795968 Methodi 00:00:00 00:00:[address] 3.430.2.7 0.2.7.3.698 Ho spita .3.333015 084.8 l .8 2022-07-16 2022-07-16 Orders Provider, 1.2.840.1 [id number] 2099 [id number] Methodi 00:00:00 00:00:00 Only Unknown 94348.1.[address] 3.430.2.7 Hospit a .3.103100 l .8 2022-07-11 2022-07-11 Travel 1.2.840.1 1.2.339.804 0746 893185 Methodi 00:00:00 00:00:[address] 3.430.2.7 0.2.7.3.698 Ho spita .3.736213 084.8 l .8 2022-07-11 2022-07-11 Travel 1.2.840.1 1.2.635.072 2736 401771 Methodi 00:00:00 00:00:[address] 3.430.2.7 0.2.7.3.698 Ho spita .3.524154 084.8 l .8 2022-07-10 2022-07-10 [facility] 1.2.840.1 [id number] 08144 40687 Methodi 07:00:00 10:07:00 Alexsandra Tirado 10715.1.[address] 3.430.2.7 Hospit a .3.133624 l .8 2022-07-10 2022-07-10 [facility], 1.2.840.1 [id number] 81205 08409 Methodi 07:00:00 10:07:00 Encounter Marielena Tirado 41852.1.[address] 3.430.2.7 Hospit a .3.120170 l .8 2022-07-02 2022-07-02 [facility] 1.2.840.1 65283 1011 [id number] Methodi 12:23:19 16:23:30 Encounter Stephani Marinelli 56346.1.[address] 3.430.2.7 Hospit a .3.412304 l .8 2022-07-02 2022-07-02 [facility] 1.2.840.1 52691 1011 [id number] Methodi 12:23:19 16:23:30 Encounter Stephani Marinelli 95106.1.[address] 3.430.2.7 Hospit a .3.825586 l .8 2022-07-02 2022-07-02 [facility], 1.2.840.1 [id number] 54811 89660 Methodi 14:00:00 16:02:09 Encounter Marielena Tirado 75182.1.[address] 3.430.2.7 Hospit a .3.200913 l .8 2022-07-02 2022-07-02 [facility], 1.2.840.1 [id number] 82608 11760 Methodi 14:00:00 16:02:09 Encounter Marielena Tirado 46348.1.[address] 3.430.2.7 Hospit a .3.980099 l .8 2022-07-02 2022-07-02 [facility], 1.2.840.1 [id number] 290455 7219 Methodi 00:00:00 00:00:00 Work Esther 64614.1.[address] 3.430.2.7 Hospit a .3.461553 l .8 2022-07-02 2022-07-02 [facility], 1.2.840.1 [id number] 744416 8142 Methodi 00:00:00 00:00:00 Work Esther 08796.1.[address] 3.430.2.7 Hospit a .3.824444 l .8 2022-06-18 2022-06-19 [facility], 1.2.840.1 [id number] 29327 69853 Methodi 14:01:37 09:27:19 Encounter Marielena Tirado 88517.1.[address] 3.430.2.7 Hospit a .3.151810 l .8 2022-06-18 2022-06-19 [facility], 1.2.840.1 [id number] 91769 45221 Methodi 14:01:37 09:27:19 Encounter Marielena Tirado 44298.1.[address] 3.430.2.7 Hospit a .3.111716 l .8 2022-06-17 2022-06-17 [facility] Manuel Calvo 1.2.840.1 [id number] Methodi 10:07:29 23:59:[address] 3.430.2.7 Hospit a .3.682893 l .8 2022-06-17 2022-06-17 [facility] Manuel Calvo 1.2.840.1 [id number] Methodi 10:07:29 23:59:[address] 3.430.2.7 Hospit a .3.567356 l .8 2022-06-17 2022-06-17 [facility] Manuel Calvo 1.2.840.1 [id number] Methodi 10:07:13 23:59:[address] 3.430.2.7 Hospit a .3.381402 l .8 2022-06-17 2022-06-17 [facility] Manuel Calvo 1.2.840.1 [id number] Methodi 10:07:13 23:59:[address] 3.430.2.7 Hospit a .3.742776 l .8 2022-06-17 2022-06-17 Travel 1.2.840.1 1.2.904.767 0774 730068 Methodi 00:00:00 00:00:[address] 3.430.2.7 0.2.7.3.698 Ho spita .3.900069 084.8 l .8 2022-06-17 2022-06-17 Travel 1.2.840.1 1.2.710.464 7130 962776 Methodi 00:00:00 00:00:[address] 3.430.2.7 0.2.7.3.698 Ho spita .3.693796 084.8 l .8 2022-06-14 2022-06-14 Orders Manuel Calvo 1.2.840.1 [id number] 697 [id number] Methodi 00:00:00 00:00:[address] 3.430.2.7 Hospit a .3.279593 l .8 2022-06-14 2022-06-14 Orders Manuel Calvo 1.2.840.1 [id number] 809 [id number] Methodi 00:00:00 00:00:[address] 3.430.2.7 Hospit a .3.244847 l .8 2022-05-28 2022-06-07 Office Manuel Calvo 1.2.840.1 [id number] 223 [id number] Methodi 15:00:00 00:40:[address] 3.430.2.7 Hospit a .3.601437 l .8 2022-05-28 2022-06-07 Office Manuel Calvo 1.2.840.1 [id number] 473 [id number] Methodi 15:00:00 00:40:[address] 3.430.2.7 Hospit a .3.767505 l .8 2022-06-06 2022-06-06 Eloise Guillermo 1.2.840.1 [id number] 364 [id number] Methodi 00:00:00 00:00:00 Only Margaret 29625.1.[address] 3.430.2.7 Hospit a .3.018288 l .8 2022-06-06 2022-06-06 Orders [facility], 1.2.840.1 [id number] 005 [id number] Methodi 00:00:00 00:00:00 Only Margaret 47839.1.[address] 3.430.2.7 Hospit a .3.055471 l .8 2022-05-29 2022-05-29 Telephone Juanito, 1.2.840.1 [id number] 2099 [id number] Methodi 00:00:00 00:00:[address] 3.430.2.7 Hospit a .3.014424 l .8 2022-05-29 2022-05-29 Telephone Juanito, 1.2.840.1 [id number] 2099 [id number] Methodi 00:00:00 00:00:[address] 3.430.2.7 Hospit a .3.833978 l .8 2022-05-28 2022-05-28 [facility] Manuel Calvo 1.2.840.1 [id number] Methodi 10:14:40 23:59:[address] 3.430.2.7 Hospit a .3.687289 l .8 2022-05-28 2022-05-28 [facility] Manuel Calvo 1.2.840.1 [id number] Methodi 10:14:40 23:59:[address] 3.430.2.7 Hospit a .3.598799 l .8 2022-05-28 2022-05-28 Infusion Manuel Calvo 1.2.840.1 [id number] Methodi 11:15:00 14:15:[address] 3.430.2.7 Hospit a .3.072902 l .8 2022-05-28 2022-05-28 Infusion Manuel Calvo 1.2.840.1 [id number] 21 [id number] Methodi 11:15:00 14:15:[address] 3.430.2.7 Hospit a .3.080263 l .8 2022-05-28 2022-05-28 Orders Mattiesladyu, 1.2.840.1 [id number] [id number] Methodi 00:00:00 00:00:00 Only Magui Ram 50869.1.[address] 3.430.2.7 Hospit a .3.598794 l .8 2022-05-28 2022-05-28 Travel 1.2.840.1 1.2.469.833 6228 994316 Methodi 00:00:00 00:00:[address] 3.430.2.7 0.2.7.3.698 Ho spita .3.342850 084.8 l .8 2022-05-28 2022-05-28 Orders Mattiedarrylpaula, 1.2.840.1 [id number] 21001 01100 Methodi 00:00:00 00:00:00 Only Magui Ram 50103.1.[address] 3.430.2.7 Hospit a .3.482020 l .8 2022-05-28 2022-05-28 Travel 1.2.840.1 1.2.467.741 4745 760136 Methodi 00:00:00 00:00:[address] 3.430.2.7 0.2.7.3.698 Ho spita .3.706271 084.8 l .8 2022-05-17 2022-05-17 Eloise Guillermo, 1.2.840.1 [id number] 883 1320377 Methodi 00:00:00 00:00:00 Only Margaret 76895.1.[address] 3.430.2.7 Hospit a .3.839305 l .8 2022-05-17 2022-05-17 Eloise Guillermo 1.2.840.1 [id number] 565 [id number] Methodi 00:00:00 00:00:00 Only Margaret 36130.1.[address] 3.430.2.7 Hospit a .3.257896 l .8 2022-03-06 2022-05-09 Office Manuel Calvo 1.2.840.1 [id number] 525 [id number] Methodi 15:20:00 11:13:[address] 3.430.2.7 Hospit a .3.574052 l .8 2022-03-06 2022-05-09 Office Manuel Calvo 1.2.840.1 [id number] 332 1533045 Methodi 15:20:00 11:13:[address] 3.430.2.7 Hospit a .3.935981 l .8 2022-02-05 2022-05-09 Office Manuel Calvo 1.2.840.1 [id number] 111 6745039 Methodi 13:20:00 10:48:[address] 3.430.2.7 Hospit a .3.295756 l .8 2022-02-05 2022-05-09 Office Manuel Calvo 1.2.840.1 778101467 639 9992479 Methodi 13:20:00 10:48:[address] 3.430.2.7 Hospit a .3.195682 l .8 2022-05-02 2022-05-02 Eloise Chase, 1.2.840.1 632290677 64318 44104 Methodi 00:00:00 00:00:00 Only Magui Ram 03287.1.[address] 3.430.2.7 Hospit a .3.093760 l .8 2022-05-02 2022-05-02 Eloise Chase, 1.2.840.1 089777055 99602 70595 Methodi 00:00:00 00:00:00 Only Magui Ram 88740.1.[address] 3.430.2.7 Hospit a .3.616105 l .8 2022-05-02 2022-05-02 Eloise Chase, 1.2.840.1 [id number] 25242 40609 Methodi 00:00:00 00:00:00 Only Magui Ram 31925.1.[address] 3.430.2.7 Hospit a .3.435111 l .8 2022-05-02 2022-05-02 Orders Salvatore, 1.2.840.1 062351038 21001 73121 Methodi 00:00:00 00:00:00 Only Magui Ram 03886.1.[address] 3.430.2.7 Hospit a .3.749682 l .8 2022-05-01 2022-05-01 Infusion Manuel Calvo 1.2.840.1 [id number] 27265344 Methodi 11:15:00 14:15:[address] 3.430.2.7 Hospit a .3.919241 l .8 2022-05-01 2022-05-01 Infusion Manuel Calvo 1.2.840.1 352006940 97367316 Methodi 11:15:00 14:15:[address] 3.430.2.7 Hospit a .3.043981 l .8 2022-05-01 2022-05-01 Travel 1.2.840.1 1.2.985.437 5291 106754 Methodi 00:00:00 00:00:[address] 3.430.2.7 0.2.7.3.698 Ho spita .3.266238 084.8 l .8 2022-05-01 2022-05-01 Travel 1.2.840.1 1.2.827.246 8720 399261 Methodi 00:00:00 00:00:[address] 3.430.2.7 0.2.7.3.698 Ho spita .3.114366 084.8 l .8 2022-04-30 2022-04-30 Orders Manuel Calvo 1.2.840.1 [id number] 628 [id number] Methodi 00:00:00 00:00:[address] 3.430.2.7 Hospit a .3.445581 l .8 2022-04-30 2022-04-30 Orders Manuel Calvo 1.2.840.1 590377435 971 0631866 Methodi 00:00:00 00:00:[address] 3.430.2.7 Hospit a .3.231151 l .8 2022-04-02 2022-04-02 Infusion Manuel Calvo 1.2.840.1 468262882 21 [id number] Methodi 11:15:00 14:15:[address] 3.430.2.7 Hospit a .3.637482 l .8 2022-04-02 2022-04-02 Infusion Manuel Calvo 1.2.840.1 268530515 21 82736354 Methodi 11:15:00 14:15:[address] 3.430.2.7 Hospit a .3.216928 l .8 2022-04-02 2022-04-02 Travel 1.2.840.1 1.2.705.166 8845 786445 Methodi 00:00:00 00:00:[address] 3.430.2.7 0.2.7.3.698 Ho spita .3.149504 084.8 l .8 2022-04-02 2022-04-02 Travel 1.2.840.1 1.2.531.730 8601 782471 Methodi 00:00:00 00:00:[address] 3.430.2.7 0.2.7.3.698 Ho spita .3.177519 084.8 l .8 2022-03-29 2022-03-29 Orders Manuel Calvo 1.2.840.1 [id number] 732 [id number] Methodi 00:00:00 00:00:[address] 3.430.2.7 Hospit a .3.419528 l .8 2022-03-29 2022-03-29 Orders Calvo, Manuel 1.2.840.1 [id number] 540 [id number] Methodi 00:00:00 00:00:[address] 3.430.2.7 Hospit a .3.692828 l .8 2022-03-18 2022-03-18 [facility] 1.2.840.1 [id number] Methodi 13:15:00 14:08:[address] 3.430.2.7 Hospit a .3.779223 l .8 2022-03-18 2022-03-18 [facility] 1.2.840.1 [id number] 21001 46589 Methodi 13:15:00 14:08:[address] 3.430.2.7 Hospit a .3.510721 l .8 2022-03-18 2022-03-18 Orders Provider, 1.2.840.1 [id number] 2099 860302 Methodi 00:00:00 00:00:00 Only Unknown 30808.1.[address] 3.430.2.7 Hospit a .3.817018 l .8 2022-03-18 2022-03-18 Orders Provider, 1.2.840.1 [id number] 2099 021007 Methodi 00:00:00 00:00:00 Only Unknown 38264.1.[address] 3.430.2.7 Hospit a .3.758030 l .8 2022-03-15 2022-03-15 [facility] 1.2.840.1 [id number] 77977 Methodi 12:00:00 12:27:[address] 3.430.2.7 Hospit a .3.045140 l .8 2022-03-15 2022-03-15 [facility] 1.2.840.1 [id number] Methodi 12:00:00 12:27:[address] 3.430.2.7 Hospit a .3.841748 l .8 2022-03-15 2022-03-15 Orders Provider, 1.2.840.1 [id number] 2100 308662 Methodi 00:00:00 00:00:00 Only Unknown 79512.1.[address] 3.430.2.7 Hospit a .3.733489 l .8 2022-03-15 2022-03-15 Orders Provider, 1.2.840.1 [id number] 2099 774125 Methodi 00:00:00 00:00:00 Only Unknown 27516.1.[address] 3.430.2.7 Hospit a .3.208535 l .8 2022-03-14 2022-03-14 [facility] 1.2.840.1 [id number] 85179 Methodi 14:30:00 15:26:35 Encounter Marielena Tirado 65590.1.[address] 3.430.2.7 Hospit a .3.347366 l .8 2022-03-14 2022-03-14 [facility] 1.2.840.1 [id number] 54446 Methodi 14:30:00 15:26:35 Encounter Marielena Tirado 85737.1.[address] 3.430.2.7 Hospit a .3.857647 l .8 2022-03-14 2022-03-14 [facility] Marielena Tirado 1.2.840.1 85377 1 [id number] Methodi 13:21:52 15:06:49 Encounter Makayla Cuevas 19014.1.[address] 3.430.2.7 Hospit a .3.932877 l .8 2022-03-14 [facility]03-[facility]1 11285 1 [id number] Methodi 13:21:52 15:06:49 Encounter Makayla Cuevas 40721.1.[address] 3.430.2.7 Hospit a .3.276290 l .8 2022-03-14 2022-03-14 [facility] 1.2.840.1 [id number] 09218 94764 Methodi 12:53:46 13:20:[address] 3.430.2.7 Hospit a .3.718642 l .8 2022-03-14 2022-03-14 [facility] 1.2.840.1 [id number] 55896 08316 Methodi 12:53:46 13:20:[address] 3.430.2.7 Hospit a .3.057465 l .8 2022-03-14 2022-03-14 Orders Provider, 1.2.840.1 [id number] 2099 121770 Methodi 00:00:00 00:00:00 Only Unknown 00754.1.[address] 3.430.2.7 Hospit a .3.507642 l .8 2022-03-14 2022-03-14 Orders Provider, 1.2.840.1 [id number] 2099 216167 Methodi 00:00:00 00:00:00 Only Unknown 43390.1.[address] 3.430.2.7 Hospit a .3.480646 l .8 2022-03-13 2022-03-13 [facility] 1.2.840.1 [id number] 67801 93914 Methodi 13:27:48 13:51:[address] 3.430.2.7 Hospit a .3.683446 l .8 2022-03-13 2022-03-13 [facility] 1.2.840.1 [id number] 05996 64174 Methodi 13:27:48 13:51:[address] 3.430.2.7 Hospit a .3.599080 l .8 2022-03-13 2022-03-13 Orders Provider, 1.2.840.1 [id number] 2100 967289 Methodi 00:00:00 00:00:00 Only Unknown 38477.1.[address] 3.430.2.7 Hospit a .3.621571 l .8 2022-03-13 2022-03-13 Orders Provider, 1.2.840.1 [id number] 2099 632242 Methodi 00:00:00 00:00:00 Only Unknown 59627.1.[address] 3.430.2.7 Hospit a .3.170264 l .8 2022-03-12 2022-03-12 [facility], 1.2.840.1 [id number] 71664 Methodi 07:15:00 16:57:48 Encounter Marielena Tirado 46534.1.[address] 3.430.2.7 Hospit a .3.791803 l .8 2022-03-12 2022-03-12 [facility], 1.2.840.1 [id number] 59303 Methodi 07:15:00 16:57:48 Encounter Marielena Tirado 12202.1.[address] 3.430.2.7 Hospit a .3.414297 l .8 2022-03-12 2022-03-12 [facility] 1.2.840.1 [id number] 21001 59625 Methodi 12:52:46 13:43:[address] 3.430.2.7 Hospit a .3.499275 l .8 2022-03-12 2022-03-12 [facility] 1.2.840.1 [id number] 21001 39911 Methodi 12:52:46 13:43:[address] 3.430.2.7 Hospit a .3.374215 l .8 2022-03-12 2022-03-12 Orders Provider, 1.2.840.1 [id number] 2099 524610 Methodi 00:00:00 00:00:00 Only Unknown 65635.1.[address] 3.430.2.7 Hospit a .3.234178 l .8 2022-03-12 2022-03-12 Orders Provider, 1.2.840.1 [id number] 2099 344755 Methodi 00:00:00 00:00:00 Only Unknown 39283.1.[address] 3.430.2.7 Hospit a .3.373207 l .8 2022-03-11 2022-03-11 [facility] 1.2.840.1 [id number] 21001 94948 Methodi 14:45:00 15:31:[address] 3.430.2.7 Hospit a .3.597712 l .8 2022-03-11 2022-03-11 [facility] 1.2.840.1 [id number] 21001 81893 Methodi 14:45:00 15:31:[address] 3.430.2.7 Hospit a .3.020303 l .8 2022-03-11 2022-03-11 Orders Provider, 1.2.840.1 [id number] 2099 022568 Methodi 00:00:00 00:00:00 Only Unknown 59048.1.[address] 3.430.2.7 Hospit a .3.684434 l .8 2022-03-11 2022-03-11 Orders Provider, 1.2.840.1 [id number] 2099 982993 Methodi 00:00:00 00:00:00 Only Unknown 72850.1.[address] 3.430.2.7 Hospit a .3.286195 l .8 2022-03-08 2022-03-08 [facility] 1.2.840.1 [id number] 21001 23867 Methodi 12:00:00 12:08:[address] 3.430.2.7 Hospit a .3.672597 l .8 2022-03-08 2022-03-08 [facility] 1.2.840.1 [id number] 21001 29036 Methodi 12:00:00 12:08:[address] 3.430.2.7 Hospit a .3.764097 l .8 2022-03-08 2022-03-08 [facility] 1.2.840.1 [id number] 04568 Methodi 09:22:16 11:29:00 Encounter Marielena Tirado 68446.1.[address] 3.430.2.7 Hospit a .3.191433 l .8 2022-03-08 2022-03-08 [facility] 1.2.840.1 [id number] 21001 33387 Methodi 09:22:16 11:29:00 Encounter Marielena YoMichael 68630.1.[address] 3.430.2.7 Hospit a .3.801901 l .8 2022-03-08 2022-03-08 Orders Provider, 1.2.840.1 [id number] 2099 190269 Methodi 00:00:00 00:00:00 Only Unknown 20519.1.[address] 3.430.2.7 Hospit a .3.554609 l .8 2022-03-08 2022-03-08 Travel 1.2.840.1 1.2.748.422 8200 787725 Methodi 00:00:00 00:00:[address] 3.430.2.7 0.2.7.3.698 Ho spita .3.610810 084.8 l .8 2022-03-08 2022-03-08 Orders Provider, 1.2.840.1 [id number] 2099 378216 Methodi 00:00:00 00:00:00 Only Unknown 67991.1.[address] 3.430.2.7 Hospit a .3.647983 l .8 2022-03-08 2022-03-08 Travel 1.2.840.1 1.2.465.274 4189 780687 Methodi 00:00:00 00:00:[address] 3.430.2.7 0.2.7.3.698 Ho spita .3.097465 084.8 l .8 2022-03-07 2022-03-07 [facility] 1.2.840.1 60100 1011 [id number] Methodi 15:04:08 15:46:52 Encounter Stephani Marinelli 90847.1.[address] 3.430.2.7 Hospit a .3.210864 l .8 2022-03-07 2022-03-07 [facility] 1.2.840.1 85709 1011 [id number] Methodi 15:04:08 15:46:52 Encounter Stephani Marinelli 31197.1.[address] 3.430.2.7 Hospit a .3.999203 l .8 2022-03-07 2022-03-07 [facility] 1.2.840.1 [id number] Methodi 14:45:00 15:02:[address] 3.430.2.7 Hospit a .3.256637 l .8 2022-03-07 2022-03-07 [facility] 1.2.840.1 9787748589051251 Methodi 14:45:00 15:02:[address] 3.430.2.7 Hospit a .3.156948 l .8 2022-03-07 2022-03-07 Orders Provider, 1.2.840.1 [id number] 2099 369383 Methodi 00:00:00 00:00:00 Only Unknown 57961.1.[address] 3.430.2.7 Hospit a .3.656147 l .8 2022-03-07 2022-03-07 Orders Provider, 1.2.840.1 [id number] 2099 921847 Methodi 00:00:00 00:00:00 Only Unknown 30911.1.[address] 3.430.2.7 Hospit a .3.611243 l .8 2022-03-06 2022-03-06 Infusion Manuel Calvo 1.2.840.1 [id number] 45597078 Methodi 14:30:00 17:30:[address] 3.430.2.7 Hospit a .3.501916 l .8 2022-03-06 2022-03-06 Infusion Manuel Calvo 1.2.840.1 [id number] 21 [id number] Methodi 14:30:00 17:30:[address] 3.430.2.7 Hospit a .3.779853 l .8 2022-03-06 2022-03-06 [facility] 1.2.840.1 [id number] 21001 55956 Methodi 13:15:00 13:57:[address] 3.430.2.7 Hospit a .3.304146 l .8 2022-03-06 2022-03-06 Hospital 1.2.840.1 93512 Methodi 13:15:00 13:57:[address] 3.430.2.7 Hospit a .3.974669 l .8 2022-03-06 2022-03-06 Travel 1.2.840.1 1.2.446.422 4573 248019 Methodi 00:00:00 00:00:[address] 3.430.2.7 0.2.7.3.698 Ho spita .3.187878 084.8 l .8 2022-03-06 2022-03-06 Orders Provider, 1.2.840.1 2099 312379 Methodi 00:00:00 00:00:00 Only Unknown 62137.1.[address] 3.430.2.7 Hospit a .3.223244 l .8 2022-03-06 2022-03-06 Travel 1.2.840.1 1.2.660.575 4248 106709 Methodi 00:00:00 00:00:[address] 3.430.2.7 0.2.7.3.698 Ho spita .3.635721 084.8 l .8 2022-03-06 2022-03-06 Orders Provider, 1.2.840.1 [id number] Methodi 00:00:00 00:00:00 Only Unknown 61183.1.[address] 3.430.2.7 Hospit a .3.252451 l .8 2022-03-05 2022-03-05 [facility] 1.2.840.1 00770 Methodi 14:01:32 14:29:[address] 3.430.2.7 Hospit a .3.625335 l .8 2022-03-05 2022-03-05 Hospital 1.2.840.1 [id number] 21001 96024 Methodi 14:01:32 14:29:[address] 3.430.2.7 Hospit a .3.756000 l .8 2022-03-05 2022-03-05 Travel 1.2.840.1 1.2.903.992 1076 446858 Methodi 00:00:00 00:00:[address] 3.430.2.7 0.2.7.3.698 Ho spita .3.980786 084.8 l .8 2022-03-05 2022-03-05 Orders Provider, 1.2.840.1 [id number] 2099 569926 Methodi 00:00:00 00:00:00 Only Unknown 54021.1.[address] 3.430.2.7 Hospit a .3.341242 l .8 2022-03-05 2022-03-05 Travel 1.2.840.1 1.2.826.605 1952 876203 Methodi 00:00:00 00:00:[address] 3.430.2.7 0.2.7.3.698 Ho spita .3.323570 084.8 l .8 2022-03-05 2022-03-05 Orders Provider, 1.2.840.1 [id number] 2099 818331 Methodi 00:00:00 00:00:00 Only Unknown 01050.1.[address] 3.430.2.7 Hospit a .3.316824 l .8 2022-03-04 2022-03-04 Hospital 1.2.840.1 [id number] 21001 18248 Methodi 12:47:19 13:24:[address] 3.430.2.7 Hospit a .3.547103 l .8 2022-03-04 2022-03-04 Hospital 1.2.840.1 839123908 21001 95593 Methodi 12:47:19 13:24:[address] 3.430.2.7 Hospit a .3.054788 l .8 2022-03-04 2022-03-04 Orders Provider, 1.2.840.1 [id number] 2099 996555 Methodi 00:00:00 00:00:00 Only Unknown 11942.1.[address] 3.430.2.7 Hospit a .3.025083 l .8 2022-03-04 2022-03-04 Orders Provider, 1.2.840.1 917584411 2099 857177 Methodi 00:00:00 00:00:00 Only Unknown 37585.1.[address] 3.430.2.7 Hospit a .3.155463 l .8 2022-03-01 2022-03-01 [facility] 1.2.840.1 [id number] 94408 53119 Methodi 14:18:10 14:46:[address] 3.430.2.7 Hospit a .3.415739 l .8 2022-03-01 2022-03-01 [facility] 1.2.840.1 [id number] 98249 59793 Methodi 14:18:10 14:46:[address] 3.430.2.7 Hospit a .3.084799 l .8 2022-03-01 2022-03-01 Orders Manuel Calvo 1.2.840.1 [id number] 770 2854225 Methodi 00:00:00 00:00:[address] 3.430.2.7 Hospit a .3.666782 l .8 2022-03-01 2022-03-01 Orders Provider, 1.2.840.1 117324937 2100 736761 Methodi 00:00:00 00:00:00 Only Unknown 42155.1.[address] 3.430.2.7 Hospit a .3.769145 l .8 2022-03-01 2022-03-01 Orders Manuel Calvo 1.2.840.1 [id number] 147 6212587 Methodi 00:00:00 00:00:[address] 3.430.2.7 Hospit a .3.618504 l .8 2022-03-01 2022-03-01 Orders Provider, 1.2.840.1 880652650 2100 935288 Methodi 00:00:00 00:00:00 Only Unknown 33195.1.[address] 3.430.2.7 Hospit a .3.889710 l .8 2022-02-28 2022-02-28 [facility] 1.2.840.1 20792 1011 4070329421 Methodi 15:00:00 16:06:57 Encounter Makayla Cuevas 14935.1.[address] 3.430.2.7 Hospit a .3.199281 l .8 2022-02-28 2022-02-28 [facility] 1.2.840.1 47445 1011 0492311629 Methodi 15:00:00 16:06:57 Encounter Makayla Cuevas 20348.1.[address] 3.430.2.7 Hospit a .3.946398 l .8 2022-02-28 2022-02-28 [facility] 1.2.840.1 [id number] 60161 75659 Methodi 14:30:00 15:13:[address] 3.430.2.7 Hospit a .3.902478 l .8 2022-02-28 2022-02-28 [facility] 1.2.840.1 [id number] 80130 52702 Methodi 14:30:00 15:13:[address] 3.430.2.7 Hospit a .3.834039 l .8 2022-02-28 2022-02-28 Orders Provider, 1.2.840.1 [id number] 2100 645854 Methodi 00:00:00 00:00:00 Only Unknown 14411.1.[address] 3.430.2.7 Hospit a .3.099701 l .8 2022-02-28 2022-02-28 Orders Provider, 1.2.840.1 677385500 2100 391811 Methodi 00:00:00 00:00:00 Only Unknown 42660.1.[address] 3.430.2.7 Hospit a .3.364180 l .8 2022-02-27 2022-02-27 [facility] 1.2.840.1 287565350 21001 95840 Methodi 15:00:00 15:28:[address] 3.430.2.7 Hospit a .3.738383 l .8 2022-02-27 2022-02-27 [facility] 1.2.840.1 [id number] 21001 96854 Methodi 15:00:00 15:28:[address] 3.430.2.7 Hospit a .3.056269 l .8 2022-02-27 2022-02-27 Orders Provider, 1.2.840.1 [id number] 2099 409908 Methodi 00:00:00 00:00:00 Only Unknown 23317.1.[address] 3.430.2.7 Hospit a .3.705664 l .8 2022-02-27 2022-02-27 Orders Provider, 1.2.840.1 117929265 2100 049801 Methodi 00:00:00 00:00:00 Only Unknown 23445.1.[address] 3.430.2.7 Hospit a .3.788141 l .8 2022-02-26 2022-02-26 [facility] 1.2.840.1 788515008 21001 85301 Methodi 15:00:00 15:36:[address] 3.430.2.7 Hospit a .3.612736 l .8 2022-02-26 2022-02-26 Hospital 1.2.840.1 [id number] 21001 00852 Methodi 15:00:00 15:36:[address] 3.430.2.7 Hospit a .3.978542 l .8 2022-02-26 2022-02-26 Orders Provider, 1.2.840.1 [id number] 2100 153624 Methodi 00:00:00 00:00:00 Only Unknown 11027.1.[address] 3.430.2.7 Hospit a .3.675338 l .8 2022-02-26 2022-02-26 Orders Provider, 1.2.840.1 [id number] 2099 387461 Methodi 00:00:00 00:00:00 Only Unknown 42217.1.[address] 3.430.2.7 Hospit a .3.836378 l .8 2022-02-25 2022-02-25 [facility] 1.2.840.1 [id number] 21001 57111 Methodi 14:17:54 14:36:[address] 3.430.2.7 Hospit a .3.523424 l .8 2022-02-25 2022-02-25 [facility] 1.2.840.1 [id number] 21001 96994 Methodi 14:17:54 14:36:[address] 3.430.2.7 Hospit a .3.221613 l .8 2022-02-25 2022-02-25 Travel 1.2.840.1 1.2.226.573 9562 606648 Methodi 00:00:00 00:00:[address] 3.430.2.7 0.2.7.3.698 Ho spita .3.784984 084.8 l .8 2022-02-25 2022-02-25 Orders Provider, 1.2.840.1 [id number] 2099 176439 Methodi 00:00:00 00:00:00 Only Unknown 91525.1.[address] 3.430.2.7 Hospit a .3.480351 l .8 2022-02-25 2022-02-25 Travel 1.2.840.1 1.2.155.517 4108 277387 Methodi 00:00:00 00:00:[address] 3.430.2.7 0.2.7.3.698 Ho spita .3.269722 084.8 l .8 2022-02-25 2022-02-25 Orders Provider, 1.2.840.1 [id number] 2100 102032 Methodi 00:00:00 00:00:00 Only Unknown 79444.1.[address] 3.430.2.7 Hospit a .3.203538 l .8 2022-02-22 2022-02-22 [facility] 1.2.840.1 893701060 21001 97138 Methodi 14:29:02 15:26:[address] 3.430.2.7 Hospit a .3.348999 l .8 2022-02-22 2022-02-22 [facility] 1.2.840.1 511926692 21001 73059 Methodi 14:29:02 15:26:[address] 3.430.2.7 Hospit a .3.353969 l .8 2022-02-21 2022-02-22 [facility] 1.2.840.1 [id number] 17670 26936 Methodi 16:00:00 07:53:40 Encounter Marielena RamMichael 24475.1.[address] 3.430.2.7 Hospit a .3.110153 l .8 2022-02-21 2022-02-22 [facility] 1.2.840.1 [id number] 38528 42737 Methodi 16:00:00 07:53:40 Encounter Marielena YoMichael 12123.1.[address] 3.430.2.7 Hospit a .3.680254 l .8 2022-02-21 2022-02-22 [facility] Marielena Tirado 1.2.840.1 13593 1011 [id number] Methodi 15:30:00 07:50:44 Encounter Stephani Marinelli 90169.1.[address] 3.430.2.7 Hospit a .3.718799 l .8 2022-02-21 [facility]22-02-22 [facility].2.840.1 63927 1011 [id number] Methodi 15:30:00 07:50:44 Encounter Stephani Marinelli 62339.1.[address] 3.430.2.7 Hospit a .3.475929 l .8 2022-02-22 2022-02-22 Orders Provider, 1.2.840.1 2099610 Methodi 00:00:00 00:00:00 Only Unknown 84728.1.[address] 3.430.2.7 Hospit a .3.703697 l .8 2022-02-22 2022-02-22 Orders Provider, 1.2.840.1 2099 031987 Methodi 00:00:00 00:00:00 Only Unknown 37755.1.[address] 3.430.2.7 Hospit a .3.426772 l .8 2022-02-21 2022-02-21 Hospital 1.2.840.1 [id number] 21001 18100 Methodi 15:00:00 15:31:[address] 3.430.2.7 Hospit a .3.589257 l .8 2022-02-21 2022-02-21 Hospital 1.2.840.1 [id number] 21001 49279 Methodi 15:00:00 15:31:[address] 3.430.2.7 Hospit a .3.348633 l .8 2022-02-21 2022-02-21 Travel 1.2.840.1 1.2.923.231 5048 501378 Methodi 00:00:00 00:00:[address] 3.430.2.7 0.2.7.3.698 Ho spita .3.953713 084.8 l .8 2022-02-21 2022-02-21 Orders Provider, 1.2.840.1 2099 054507 Methodi 00:00:00 00:00:00 Only Unknown 45564.1.[address] 3.430.2.7 Hospit a .3.986549 l .8 2022-02-21 2022-02-21 Travel 1.2.840.1 1.2.853.050 8708 260127 Methodi 00:00:00 00:00:[address] 3.430.2.7 0.2.7.3.698 Ho spita .3.429149 084.8 l .8 2022-02-21 2022-02-21 Orders Provider, 1.2.840.1 [id number] 2099 115045 Methodi 00:00:00 00:00:00 Only Unknown 36077.1.[address] 3.430.2.7 Hospit a .3.428183 l .8 2022-02-20 2022-02-20 [facility] 1.2.840.1 [id number] 21001 11859 Methodi 15:00:00 15:27:[address] 3.430.2.7 Hospit a .3.512637 l .8 2022-02-20 2022-02-20 [facility] 1.2.840.1 [id number] 21001 63094 Methodi 15:00:00 15:27:[address] 3.430.2.7 Hospit a .3.737010 l .8 2022-02-20 2022-02-20 Orders Provider, 1.2.840.1 [id number] 2099 436176 Methodi 00:00:00 00:00:00 Only Unknown 38614.1.[address] 3.430.2.7 Hospit a .3.407106 l .8 2022-02-20 2022-02-20 Orders Provider, 1.2.840.1 [id number] 2099 887901 Methodi 00:00:00 00:00:00 Only Unknown 69920.1.[address] 3.430.2.7 Hospit a .3.061100 l .8 2022-02-19 2022-02-19 Hospital 1.2.840.1 [id number] 21001 24744 Methodi 16:11:23 17:25:[address] 3.430.2.7 Hospit a .3.658990 l .8 2022-02-19 2022-02-19 [facility] 1.2.840.1 [id number] 09558 23571 Methodi 16:11:23 17:25:[address] 3.430.2.7 Hospit a .3.471320 l .8 2022-02-19 2022-02-19 Orders Provider, 1.2.840.1 [id number] 2099 086140 Methodi 00:00:00 00:00:00 Only Unknown 65006.1.[address] 3.430.2.7 Hospit a .3.887770 l .8 2022-02-19 2022-02-19 Orders Provider, 1.2.840.1 [id number] 2099 261102 Methodi 00:00:00 00:00:00 Only Unknown 40055.1.[address] 3.430.2.7 Hospit a .3.271662 l .8 2022-02-18 2022-02-18 [facility] 1.2.840.1 [id number] 62038 74908 Methodi 14:55:34 15:27:[address] 3.430.2.7 Hospit a .3.780471 l .8 2022-02-18 2022-02-18 [facility] 1.2.840.1 [id number] 21001 44737 Methodi 14:55:34 15:27:[address] 3.430.2.7 Hospit a .3.076852 l .8 2022-02-18 2022-02-18 Orders Provider, 1.2.840.1 [id number] 2100 141699 Methodi 00:00:00 00:00:00 Only Unknown 15718.1.[address] 3.430.2.7 Hospit a .3.424108 l .8 2022-02-18 2022-02-18 Orders Provider, 1.2.840.1 [id number] 2100 406465 Methodi 00:00:00 00:00:00 Only Unknown 17173.1.[address] 3.430.2.7 Hospit a .3.859034 l .8 2022-02-15 2022-02-15 [facility] 1.2.840.1 [id number] 07274 60166 Methodi 14:44:03 15:09:[address] 3.430.2.7 Hospit a .3.226528 l .8 2022-02-15 2022-02-15 [facility] 1.2.840.1 [id number] 86444 16384 Methodi 14:44:03 15:09:[address] 3.430.2.7 Hospit a .3.027909 l .8 2022-02-14 2022-02-15 [facility] Marielena YoMichael 1.2.840.1 80441 1011 [id number] Methodi 15:30:00 08:02:02 Encounter Stephani Marinelli 31865.1.[address] 3.430.2.7 Hospit a .3.272157 l .8 2022-02-14 [facility]22-02-15 [facility] 1.2.840.1 32706 1011 [id number] Methodi 15:30:00 08:02:02 Encounter Stephani Marinelli 94468.1.[address] 3.430.2.7 Hospit a .3.224289 l .8 2022-02-15 2022-02-15 Orders Provider, 1.2.840.1 [id number] 2100 146907 Methodi 00:00:00 00:00:00 Only Unknown 67433.1.[address] 3.430.2.7 Hospit a .3.993797 l .8 2022-02-15 2022-02-15 Orders Provider, 1.2.840.1 [id number] 2100 036517 Methodi 00:00:00 00:00:00 Only Unknown 20077.1.[address] 3.430.2.7 Hospit a .3.382796 l .8 2022-02-14 2022-02-14 [facility] 1.2.840.1 [id number] 76005 78844 Methodi 16:00:00 23:59:00 Encounter Marielena YoMichael 27488.1.[address] 3.430.2.7 Hospit a .3.334898 l .8 2022-02-14 2022-02-14 [facility], 1.2.840.1 [id number] 74943 99283 Methodi 16:00:00 23:59:00 Encounter Marielena Tirado 20736.1.[address] 3.430.2.7 Hospit a .3.636809 l .8 2022-02-14 2022-02-14 [facility] 1.2.840.1 [id number] 21001 54569 Methodi 14:44:03 15:31:[address] 3.430.2.7 Hospit a .3.005388 l .8 2022-02-14 2022-02-14 [facility] 1.2.840.1 [id number] 21001 44105 Methodi 14:44:03 15:31:[address] 3.430.2.7 Hospit a .3.947439 l .8 2022-02-14 2022-02-14 Orders Provider, 1.2.840.1 [id number] 2099 155811 Methodi 00:00:00 00:00:00 Only Unknown 67992.1.[address] 3.430.2.7 Hospit a .3.674766 l .8 2022-02-14 2022-02-14 Orders Provider, 1.2.840.1 [id number] 2099 102027 Methodi 00:00:00 00:00:00 Only Unknown 10096.1.[address] 3.430.2.7 Hospit a .3.056936 l .8 2022-02-13 2022-02-13 [facility] 1.2.840.1 [id number] 21001 47382 Methodi 13:13:00 13:38:[address] 3.430.2.7 Hospit a .3.185649 l .8 2022-02-13 2022-02-13 [facility] 1.2.840.1 [id number] 21001 24205 Methodi 13:13:00 13:38:[address] 3.430.2.7 Hospit a .3.571181 l .8 2022-02-13 2022-02-13 Orders Provider, 1.2.840.1 [id number] 2099 935487 Methodi 00:00:00 00:00:00 Only Unknown 13381.1.[address] 3.430.2.7 Hospit a .3.551388 l .8 2022-02-13 2022-02-13 Orders Provider, 1.2.840.1 [id number] 2099 536366 Methodi 00:00:00 00:00:00 Only Unknown 40807.1.[address] 3.430.2.7 Hospit a .3.726497 l .8 2022-02-12 2022-02-12 [facility] 1.2.840.1 [id number] 21001 94751 Methodi 14:38:42 15:16:[address] 3.430.2.7 Hospit a .3.088457 l .8 2022-02-12 2022-02-12 [facility] 1.2.840.1 [id number] 21001 36930 Methodi 14:38:42 15:16:[address] 3.430.2.7 Hospit a .3.384674 l .8 2022-02-11 2022-02-12 [facility] 1.2.840.1 [id number] 21001 72909 Methodi 08:45:00 08:24:56 Encounter Marielena YoMichael 75991.1.[address] 3.430.2.7 Hospit a .3.086394 l .8 2022-02-11 2022-02-12 [facility] 1.2.840.1 [id number] 21001 12318 Methodi 08:45:00 08:24:56 Encounter Marielena YoMichael 21073.1.[address] 3.430.2.7 Hospit a .3.302600 l .8 2022-02-12 2022-02-12 Orders Provider, 1.2.840.1 [id number] 2099 007498 Methodi 00:00:00 00:00:00 Only Unknown 19140.1.[address] 3.430.2.7 Hospit a .3.737380 l .8 2022-02-12 2022-02-12 Orders Provider, 1.2.840.1 [id number] 2100 777458 Methodi 00:00:00 00:00:00 Only Unknown 67966.1.[address] 3.430.2.7 Hospit a .3.995781 l .8 2022-02-11 2022-02-11 [facility] 1.2.840.1 [id number] 21001 37818 Methodi 13:09:17 13:34:[address] 3.430.2.7 Hospit a .3.581424 l .8 2022-02-11 2022-02-11 [facility] 1.2.840.1 [id number] 21001 92374 Methodi 13:09:17 13:34:[address] 3.430.2.7 Hospit a .3.002330 l .8 2022-02-11 2022-02-11 Orders Provider, 1.2.840.1 [id number] 2099 129199 Methodi 00:00:00 00:00:00 Only Unknown 47568.1.[address] 3.430.2.7 Hospit a .3.769263 l .8 2022-02-11 2022-02-11 Orders Provider, 1.2.840.1 [id number] 2099 346323 Methodi 00:00:00 00:00:00 Only Unknown 47924.1.[address] 3.430.2.7 Hospit a .3.963852 l .8 2022-02-08 2022-02-08 [facility] 1.2.840.1 [id number] 21001 33814 Methodi 14:50:18 15:19:[address] 3.430.2.7 Hospit a .3.805200 l .8 2022-02-08 2022-02-08 [facility] 1.2.840.1 [id number] 21001 28978 Methodi 14:50:18 15:19:[address] 3.430.2.7 Hospit a .3.874573 l .8 2022-02-08 2022-02-08 Orders Provider, 1.2.840.1 [id number] 2099 845510 Methodi 00:00:00 00:00:00 Only Unknown 18306.1.[address] 3.430.2.7 Hospit a .3.760261 l .8 2022-02-08 2022-02-08 Orders Provider, 1.2.840.1 [id number] 2099 837390 Methodi 00:00:00 00:00:00 Only Unknown 36341.1.1 [address] 3.430.2.7 Hospit a .3.819760 l .8 2022-02-07 2022-02-07 [facility] 94650 1011 [id number] Methodi 15:05:09 15:42:44 Encounter Stephani Marinelli 86155.1.[address] 3.430.2.7 Hospit a .3.652538 l .8 2022-02-07 2022-02-07 [facility] 1.2.840.1 37700 1011 [id number] Methodi 15:05:09 15:42:44 Encounter Stehpani Marinelli 87403.1.[address] 3.430.2.7 Hospit a .3.566836 l .8 2022-02-07 2022-02-07 [facility] 1.2.840.1 [id number] 42426 58921 Methodi 15:02:53 15:04:[address] 3.430.2.7 Hospit a .3.493911 l .8 2022-02-07 2022-02-07 [facility] 1.2.840.1 [id number] 90751 00104 Methodi 15:02:53 15:04:[address] 3.430.2.7 Hospit a .3.759451 l .8 2022-02-07 2022-02-07 [facility] 1.2.840.1 1.2.408.169 5608 099407 Methodi 00:00:00 00:00:[address] 3.430.2.7 0.2.7.3.698 Ho spita .3.168611 084.8 l .8 2022-02-07 2022-02-07 Orders Provider, 1.2.840.1 [id number] 2099506 Methodi 00:00:00 00:00:00 Only Unknown 47712.1.[address] 3.430.2.7 Hospit a .3.334287 l .8 2022-02-07 2022-02-07 Travel 1.2.840.1 1.2.134.728 9833 214489 Methodi 00:00:00 00:00:[address] 3.430.2.7 0.2.7.3.698 Ho spita .3.331518 084.8 l .8 2022-02-07 2022-02-07 Orders Provider, 1.2.840.1 [id number] 2099506 Methodi 00:00:00 00:00:00 Only Unknown 12303.1.[address] 3.430.2.7 Hospit a .3.315570 l .8 2022-02-06 2022-02-06 [facility] 1.2.840.1 [id number] 21001 95908 Methodi 16:17:46 16:37:[address] 3.430.2.7 Hospit a .3.105222 l .8 2022-02-06 2022-02-06 [facility] 1.2.840.1 [id number] 21001 14865 Methodi 16:17:46 16:37:[address] 3.430.2.7 Hospit a .3.987053 l .8 2022-02-05 2022-02-06 [facility] Marielena Ramsay.2.840.1 68920 1011 [id number] Methodi 16:47:22 09:27:38 Encounter Makayla Cuevas 64358.1.[address] 3.430.2.7 Hospit a .3.536298 l .8 2022-02-05 2022-02-06 [facility] Marielena Ramsay.2.840.1 75414 1011 [id number] Methodi 16:47:22 09:27:38 Encounter Makayla Cuevas 54242.1.[address] 3.430.2.7 Hospit a .3.969948 l .8 2022-02-06 2022-02-06 Orders Provider, 1.2.840.1 [id number] 2099 305339 Methodi 00:00:00 00:00:00 Only Unknown 70526.1.[address] 3.430.2.7 Hospit a .3.233992 l .8 2022-02-06 2022-02-06 Orders oru, 1.2.840.1 109438136 584820 8329 Methodi 00:00:00 00:00:00 Only Cecil 47648.1.1 [address] 3.430.2.7 Hospit a .3.975909 l .8 2022-02-06 2022-02-06 Orders Provider, 1.2.840.1 [id number] 2099 165333 Methodi 00:00:00 00:00:00 Only Unknown 01386.1.[address] 3.430.2.7 Hospit a .3.158717 l .8 2022-02-06 2022-02-06 Orders oru, 1.2.840.1 [id number] 823077 7495 Methodi 00:00:00 00:00:00 Only Cecil 88139.1.1 044 [address] t 3.430.2.7 Hospit a .3.499787 l .8 2022-02-05 2022-02-05 [facility], 1.2.840.1 [id number] 60255 32048 Methodi 15:45:00 16:43:41 Encounter Marielnea Tirado 33617.1.[address] 3.430.2.7 Hospit a .3.087297 l .8 2022-02-05 2022-02-05 [facility], 1.2.840.1 [id number] 08944 90537 Methodi 15:45:00 16:43:41 Encounter Marielena Tirado 32205.1.[address] 3.430.2.7 Hospit a .3.208935 l .8 2022-02-05 2022-02-05 Infusion Manuel Calvo 1.2.840.1 [id number] Methodi 11:45:00 14:45:[address] 3.430.2.7 Hospit a .3.645415 l .8 2022-02-05 2022-02-05 Infusion Manuel Calvo 1.2.840.1 [id number] [id number] Methodi 11:45:00 14:45:[address] 3.430.2.7 Hospit a .3.216068 l .8 2022-02-05 2022-02-05 Orders Provider, 1.2.840.1 [id number] 2099 492818 Methodi 00:00:00 00:00:00 Only Unknown 13852.1.[address] 3.430.2.7 Hospit a .3.944720 l .8 2022-02-05 2022-02-05 Travel 1.2.840.1 1.2.409.324 9746 230498 Methodi 00:00:00 00:00:[address] 3.430.2.7 0.2.7.3.698 Ho spita .3.871349 084.8 l .8 2022-02-05 2022-02-05 Orders Provider, 1.2.840.1 [id number] 2099 358710 Methodi 00:00:00 00:00:00 Only Unknown 83480.1.[address] 3.430.2.7 Hospit a .3.327021 l .8 2022-02-05 2022-02-05 Travel 1.2.840.1 1.2.877.816 0701 836868 Methodi 00:00:00 00:00:[address] 3.430.2.7 0.2.7.3.698 Ho spita .3.966899 084.8 l .8 2022-02-04 2022-02-04 Orders Manuel Calvo 1.2.840.1 [id number] 076 5750358 Methodi 00:00:00 00:00:[address] 3.430.2.7 Hospit a .3.876497 l .8 2022-02-04 2022-02-04 Orders Manuel Calvo 1.2.840.1 [id number] 004 0806045 Methodi 00:00:00 00:00:[address] 3.430.2.7 Hospit a .3.540471 l .8 2022-02-01 2022-02-01 Travel 1.2.840.1 1.2.332.567 0979 014930 Methodi 00:00:00 00:00:[address] 3.430.2.7 0.2.7.3.698 Ho spita .3.384869 084.8 l .8 2022-02-01 2022-02-01 Travel 1.2.840.1 1.2.955.631 4625 345526 Methodi 00:00:00 00:00:[address] 3.430.2.7 0.2.7.3.698 Ho spita .3.914062 084.8 l .8 2022-01-25 2022-01-25 Telephone Manuel Calvo 1.2.840.1 [id number] 2 [id number] Methodi 00:00:00 00:00:[address] 3.430.2.7 Hospit a .3.046312 l .8 2022-01-25 2022-01-25 Telephone Manuel Calvo 1.2.840.1 [id number] 2 [id number] Methodi 00:00:00 00:00:[address] 3.430.2.7 Hospit a .3.693812 l .8 2022-01-21 2022-01-21 Social And[facility], 1.2.840.1 [id number] 18807 06938 Methodi 00:00:00 00:00:00 Work Blanca 15005.1.[address] 3.430.2.7 Hospit a .3.231325 l .8 2022-01-21 2022-01-21 [facility], 1.2.840.1 [id number] 56822 97562 Methodi 00:00:00 00:00:00 Work Blanca 96760.1.[address] 3.430.2.7 Hospit a .3.076951 l .8 2022-01-16 2022-01-17 [facility].840[facility]1 47935 1189 [id number] Methodi 14:32:32 08:38:05 Encounter Margaret Cowan 95761.1.[address] 3.430.2.7 Hospit a .3.596076 l .8 2022-01-16 2022-01-17 [facility] 1.2.840.1 24465 1189 [id number] Methodi 14:32:32 08:38:05 Encounter Margaret Cowan 17518.1.[address] 3.430.2.7 Hospit a .3.572055 l .8 2022-01-17 2022-01-17 [facility], 1.2.840.1 [id number] 97503 Methodi 00:00:00 00:00:00 Work Blanca 32942.1.[address] 3.430.2.7 Hospit a .3.865484 l .8 2022-01-17 2022-01-17 [facility], 1.2.840.1 [id number] 71174 Methodi 00:00:00 00:00:00 Work Blanca 63477.1.[address] 3.430.2.7 Hospit a .3.364137 l .8 2022-01-16 2022-01-16 [facility] 1.2.840.1 [id number] 58427 61088 Methodi 16:15:00 16:49:06 Encounter Marielena Tirado 80594.1.[address] 3.430.2.7 Hospit a .3.699471 l .8 2022-01-16 2022-01-16 [facility], 1.2.840.1 [id number] 88365 25819 Methodi 16:15:00 16:49:06 Encounter Marielena Tirado 95107.1.[address] 3.430.2.7 Hospit a .3.720053 l .8 2022-01-08 2022-01-16 Office Manuel Calvo 1.2.840.1 [id number] 498 [id number] Methodi 10:20:00 00:36:[address] 3.430.2.7 Hospit a .3.179022 l .8 2022-01-08 2022-01-16 Office Manuel Calvo 1.2.840.1 [id number] 977 2306265 Methodi 10:20:00 00:36:[address] 3.430.2.7 Hospit a .3.838804 l .8 2022-01-16 2022-01-16 Travel 1.2.840.1 1.2.734.634 5925 503080 Methodi 00:00:00 00:00:[address] 3.430.2.7 0.2.7.3.698 Ho spita .3.751768 084.8 l .8 2022-01-16 2022-01-16 Travel 1.2.840.1 1.2.349.012 1019 171205 Methodi 00:00:00 00:00:[address] 3.430.2.7 0.2.7.3.698 Ho spita .3.342054 084.8 l .8 2022-01-15 2022-01-15 [facility], 1.2.840.1 [id number] 2099812 Methodi 00:00:00 00:00:00 Marielena Tirado [address]2110.1.[address] 3.430.2.7 Hospit a .3.359037 l .8 2022-01-15 2022-01-15 [facility], 1.2.840.1 [id number] 2100 927391 Methodi 00:00:00 00:00:00 Marielena Tirado 32750.1.[address] 3.430.2.7 Hospit a .3.646441 l .8 2022-01-10 2022-01-11 [facility], 1.2.840.1 [id number] 64214 11790 Methodi 07:00:00 10:29:48 Encounter Marielena Tirado 76332.1.[address] 3.430.2.7 Hospit a .3.270779 l .8 2022-01-10 2022-01-11 [facility], 1.2.840.1 [id number] 08757 34285 Methodi 07:00:00 10:29:48 Encounter Marielena Tirado 60487.1.[address] 3.430.2.7 Hospit a .3.575024 l .8 2022-01-08 2022-01-08 [facility] Manuel Calvo 1.2.840.1 [id number] [id number] Methodi 07:18:36 23:59:[address] 3.430.2.7 Hospit a .3.925139 l .8 2022-01-08 2022-01-08 [facility] Manuel Calvo 1.2.840.1 [id number] Methodi 07:18:36 23:59:[address] 3.430.2.7 Hospit a .3.625216 l .8 2022-01-08 2022-01-08 Infusion Manuel Calvo 1.2.840.1 827844137 [id number] Methodi 09:15:00 12:15:[address] 3.430.2.7 Hospit a .3.910145 l .8 2022-01-08 2022-01-08 Infusion Manuel Calvo 1.2.840.1 [id number] 21 39770400 Methodi 09:15:00 12:15:[address] 3.430.2.7 Hospit a .3.022882 l .8 2022-01-08 2022-01-08 Eloise Calvo Manuel 1.2.840.1 [id number] 801 [id number] Methodi 00:00:00 00:00:[address] 3.430.2.7 Hospit a .3.739135 l .8 2022-01-08 2022-01-08 Travel 1.2.840.1 1.2.833.050 5880 090235 Methodi 00:00:00 00:00:[address] 3.430.2.7 0.2.7.3.698 Ho spita .3.147848 084.8 l .8 2022-01-08 2022-01-08 Eloise Lubna Manuel 1.2.840.1 [id number] 950 6811964 Methodi 00:00:00 00:00:[address] 3.430.2.7 Hospit a .3.248019 l .8 2022-01-08 2022-01-08 Travel 1.2.840.1 1.2.616.894 2090 035667 Methodi 00:00:00 00:00:[address] 3.430.2.7 0.2.7.3.698 Ho spita .3.708246 084.8 l .8 2022-01-04 2022-01-04 Travel 1.2.840.1 1.2.041.016 3897 656808 Methodi 00:00:00 00:00:[address] 3.430.2.7 0.2.7.3.698 Ho spita .3.321214 084.8 l .8 2022-01-04 2022-01-04 Travel 1.2.840.1 1.2.569.362 1756 468517 Methodi 00:00:00 00:00:[address] 3.430.2.7 0.2.7.3.698 Ho spita .3.302847 084.8 l .8 2021-12-21 2021-12-21 [facility], 1.2.840.1 [id number] 409 [id number] Methodi 00:00:00 00:00:00 Only Margaret 89110.1.[address] 3.430.2.7 Hospit a .3.316906 l .8 2021-12-21 2021-12-21 Eloise Guillermo, 1.2.840.1 [id number] 847 7670864 Methodi 00:00:00 00:00:00 Only Margaret 13319.1.[address] 3.430.2.7 Hospit a .3.042691 l .8 2021-12-11 2021-12-20 Office Manuel Calvo 1.2.840.1 [id number] 107 [id number] Methodi 10:20:00 00:30:[address] 3.430.2.7 Hospit a .3.676935 l .8 2021-12-11 2021-12-20 Office Manuel Calvo 1.2.840.1 [id number] 804 2029021 Methodi 10:20:00 00:30:[address] 3.430.2.7 Hospit a .3.992388 l .8 2021-12-11 2021-12-11 Infusion Manuel Calvo 1.2.840.1 [id number] 21 03964356 Methodi 09:15:00 12:15:[address] 3.430.2.7 Hospit a .3.966486 l .8 2021-12-11 2021-12-11 Infusion Manuel Calvo 1.2.840.1 121664482 29730608 Methodi 09:15:00 12:15:[address] 3.430.2.7 Hospit a .3.932106 l .8 2021-12-11 2021-12-11 Travel 1.2.840.1 1.2.505.873 1896 336405 Methodi 00:00:00 00:00:[address] 3.430.2.7 0.2.7.3.698 Ho spita .3.143356 084.8 l .8 2021-12-11 2021-12-11 Travel 1.2.840.1 1.2.298.736 2420 768302 Methodi 00:00:00 00:00:[address] 3.430.2.7 0.2.7.3.698 Ho spita .3.674368 084.8 l .8 2021-12-07 2021-12-07 Orders Manuel Calvo 1.2.840.1 [id number] 887 0074680 Methodi 00:00:00 00:00:[address] 3.430.2.7 Hospit a .3.441939 l .8 2021-12-07 2021-12-07 Travel 1.2.840.1 1.2.100.211 9483 825033 Methodi 00:00:00 00:00:[address] 3.430.2.7 0.2.7.3.698 Ho spita .3.589977 084.8 l .8 2021-12-07 2021-12-07 Orders Manuel Calvo 1.2.840.1 [id number] 595 7893101 Methodi 00:00:00 00:00:[address] 3.430.2.7 Hospit a .3.710030 l .8 2021-12-07 2021-12-07 Travel 1.2.840.1 1.2.181.399 2872 518185 Methodi 00:00:00 00:00:[address] 3.430.2.7 0.2.7.3.698 Ho spita .3.596465 084.8 l .8 2021-11-13 2021-11-22 Office Manuel Calvo 1.2.840.1 [id number] 551 [id number] Methodi 12:00:00 00:28:[address] 3.430.2.7 Hospit a .3.970349 l .8 2021-11-13 2021-11-22 Office Manuel Calvo 1.2.840.1 [id number] 525 6495147 Methodi 12:00:00 00:28:[address] 3.430.2.7 Hospit a .3.529910 l .8 2021-11-13 2021-11-13 [facility] Manuel Calvo 1.2.840.1 [id number] 23852594 Methodi 08:00:00 23:59:[address] 3.430.2.7 Hospit a .3.513755 l .8 2021-11-13 2021-11-13 [facility] Manuel Calvo 1.2.840.1 [id number] 21 [id number] Methodi 08:00:00 23:59:[address] 3.430.2.7 Hospit a .3.404006 l .8 2021-11-13 2021-11-13 Infusion Manuel Calvo 1.2.840.1 [id number] 21 [id number] Methodi 11:15:00 14:15:[address] 3.430.2.7 Hospit a .3.533159 l .8 2021-11-13 2021-11-13 Infusion Manuel Calvo 1.2.840.1 594805370 53925778 Methodi 11:15:00 14:15:[address] 3.430.2.7 Hospit a .3.708050 l .8 2021-11-13 2021-11-13 Orders Manuel Calvo 1.2.840.1 [id number] 982 7836894 Methodi 00:00:00 00:00:[address] 3.430.2.7 Hospit a .3.802385 l .8 2021-11-13 2021-11-13 Orders Calvo, Manuel 1.2.840.1 [id number] 597 4584104 Methodi 00:00:00 00:00:[address] 3.430.2.7 Hospit a .3.798079 l .8 2021-11-13 2021-11-13 Travel 1.2.840.1 1.2.982.788 4174 433370 Methodi 00:00:00 00:00:[address] 3.430.2.7 0.2.7.3.698 Ho spita .3.954743 084.8 l .8 2021-11-13 2021-11-13 Travel 1.2.840.1 1.2.030.699 3141 628408 Methodi 00:00:00 00:00:[address] 3.430.2.7 0.2.7.3.698 Ho spita .3.029852 084.8 l .8 2021-11-08 2021-11-08 Travel 1.2.840.1 1.2.529.830 1932 419121 Methodi 00:00:00 00:00:[address] 3.430.2.7 0.2.7.3.698 Ho spita .3.283508 084.8 l .8 2021-11-08 2021-11-08 Travel 1.2.840.1 1.2.607.086 4575 635543 Methodi 00:00:00 00:00:[address] 3.430.2.7 0.2.7.3.698 Ho spita .3.834174 084.8 l .8 2021-11-07 2021-11-07 Travel 1.2.840.1 1.2.337.459 7611 894611 Methodi 00:00:00 00:00:[address] 3.430.2.7 0.2.7.3.698 Ho spita .3.696295 084.8 l .8 2021-11-07 2021-11-07 Travel 1.2.840.1 1.2.426.734 4311 128205 Methodi 00:00:00 00:00:[address] 3.430.2.7 0.2.7.3.698 Ho spita .3.931370 084.8 l .8 2021-11-05 2021-11-05 [facility], 1.2.840.1 [id number] 818 4691501 Methodi 00:00:00 00:00:00 Only Margaret 93286.1.[address] 3.430.2.7 Hospit a .3.708947 l .8 2021-10-16 2021-10-26 Office Manuel Calvo 1.2.840.1 [id number] 464 1088545 Methodi 10:20:00 00:28:[address] 3.430.2.7 Hospit a .3.297233 l .8 2021-10-16 2021-10-16 Infusion Manuel Calvo 1.2.840.1 [id number] 21 [id number] Methodi 09:15:00 12:15:[address] 3.430.2.7 Hospit a .3.515229 l .8 2021-10-16 2021-10-16 Travel 1.2.840.1 1.2.177.359 5833 051949 Methodi 00:00:00 00:00:[address] 3.430.2.7 0.2.7.3.698 Ho spita .3.572857 084.8 l .8 2021-10-15 2021-10-15 Travel 1.2.840.1 1.2.635.675 1319 103667 Methodi 00:00:00 00:00:[address] 3.430.2.7 0.2.7.3.698 Ho spita .3.656348 084.8 l .8 2021-09-18 2021-09-18 Infusion Manuel Calvo 1.2.840.1 [id number] 21 [id number] Methodi 09:15:00 12:15:[address] 3.430.2.7 Hospit a .3.079429 l .8 2021-09-18 2021-09-18 Office Manuel Calvo 1.2.840.1 [id number] 717 [id number] Methodi 10:20:00 10:40:[address] 3.430.2.7 Hospit a .3.981320 l .8 2021-09-18 2021-09-18 Travel 1.2.840.1 1.2.095.152 5130 749886 Methodi 00:00:00 00:00:[address] 3.430.2.7 0.2.7.3.698 Ho spita .3.015203 084.8 l .8 2021-09-18 2021-09-18 Orders Manuel Calvo 1.2.840.1 [id number] 403 0472250 Methodi 00:00:00 00:00:[address] 3.430.2.7 Hospit a .3.694322 l .8 2021-09-14 2021-09-14 Travel 1.2.840.1 1.2.025.341 2435 825248 Methodi 00:00:00 00:00:[address] 3.430.2.7 0.2.7.3.698 Ho spita .3.157971 084.8 l .8 2021-08-21 2021-08-30 Office Manuel Calvo 1.2.840.1 [id number] 941 3434698 Methodi 10:20:00 01:31:[address] 3.430.2.7 Hospit a .3.185944 l .8 2021-08-21 2021-08-21 Infusion Manuel Calvo 1.2.840.1 [id number] 21 [id number] Methodi 09:15:00 12:15:[address] 3.430.2.7 Hospit a .3.640788 l .8 2021-08-21 2021-08-21 Travel 1.2.840.1 1.2.508.492 4637 020141 Methodi 00:00:00 00:00:[address] 3.430.2.7 0.2.7.3.698 Ho spita .3.156978 084.8 l .8 2021-08-20 2021-08-20 [facility] Manuel Calvo 1.2.840.1 [id number] 367 6712002 Methodi 00:00:00 00:00:[address] 3.430.2.7 Hospit a .3.908061 l .8 2021-08-17 2021-08-17 [facility] Manuel Calvo 1.2.840.1 [id number] 21 [id number] Methodi 11:09:03 23:59:[address] 3.430.2.7 Hospit a .3.552734 l .8 2021-08-17 2021-08-17 [facility] Manuel Calvo 1.2.840.1 [id number] 21 [id number] Methodi 09:33:37 11:08:[address] 3.430.2.7 Hospit a .3.303088 l .8 2021-08-17 2021-08-17 Travel 1.2.840.1 1.2.797.848 2478 236417 Methodi 00:00:00 00:00:[address] 3.430.2.7 0.2.7.3.698 Ho spita .3.780100 084.8 l .8 2021-07-24 2021-08-16 [facility] Manuel Calvo 1.2.840.1 [id number] 124 [id number] Methodi 10:20:00 01:12:[address] 3.430.2.7 Hospit a .3.298695 l .8 2021-08-10 2021-08-10 Travel 1.2.840.1 1.2.795.093 1218 136254 Methodi 00:00:00 00:00:[address] 3.430.2.7 0.2.7.3.698 Ho spita .3.785631 084.8 l .8 2021-08-07 2021-08-07 Travel 1.2.840.1 1.2.492.664 3702 655108 Methodi 00:00:00 00:00:[address] 3.430.2.7 0.2.7.3.698 Ho spita .3.004919 084.8 l .8 2021 2021 Travel 1.2.840.1 1.2.273.674 1132 522115 Methodi 00:00:00 00:00:[address] 3.430.2.7 0.2.7.3.698 Ho spita .3.423644 084.8 l .8 2021-08-02 2021-08-02 Eloise Guillermo 1.2.840.1 [id number] 182 [id number] Methodi 00:00:00 00:00:00 Only Margaret 75935.1.[address] 3.430.2.7 Hospit a .3.770932 l .8 2021-07-24 2021-07-24 Infusion Manuel Calvo 1.2.840.1 [id number] 21 [id number] Methodi 09:15:00 12:15:[address] 3.430.2.7 Hospit a .3.076970 l .8 2021-07-24 2021-07-24 Travel 1.2.840.1 1.2.733.593 6893 035894 Methodi 00:00:00 00:00:[address] 3.430.2.7 0.2.7.3.698 Ho spita .3.921732 084.8 l .8 2021-07-23 2021-07-23 Orders Manuel Calvo 1.2.840.1 [id number] 914 [id number] Methodi 00:00:00 00:00:[address] 3.430.2.7 Hospit a .3.442717 l .8 2021-07-23 2021-07-23 Travel 1.2.840.1 1.2.746.031 1454 304414 Methodi 00:00:00 00:00:[address] 3.430.2.7 0.2.7.3.698 Ho spita .3.528389 084.8 l .8 2021-06-26 2021-06-26 Infusion Manuel Calvo 1.2.840.1 [id number] 21 [id number] Methodi 09:15:00 12:15:[address] 3.430.2.7 Hospit a .3.418542 l .8 2021-06-26 2021-06-26 Office Manuel Calvo 1.2.840.1 [id number] 145 [id number] Methodi 10:20:00 10:40:[address] 3.430.2.7 Hospit a .3.517662 l .8 2021-06-26 2021-06-26 Travel 1.2.840.1 1.2.367.998 8014 493922 Methodi 00:00:00 00:00:[address] 3.430.2.7 0.2.7.3.698 Ho spita .3.700342 084.8 l .8 2021-06-24 2021-06-24 Orders Manuel Calvo 1.2.840.1 [id number] 548 0354562 Methodi 00:00:00 00:00:[address] 3.430.2.7 Hospit a .3.439841 l .8 2021-06-21 2021-06-21 Travel 1.2.840.1 1.2.996.784 3336 344772 Methodi 00:00:00 00:00:[address] 3.430.2.7 0.2.7.3.698 Ho spita .3.377624 084.8 l .8 2021-06-01 2021-06-01 Telephone Carr, 1.2.840.1 [id number] 21 [id number] Methodi 00:00:00 00:00:[address] 3.430.2.7 Hospit a .3.650132 l .8 2021-06-01 2021-06-01 Orders Manuel Calvo 1.2.840.1 [id number] 201 [id number] Methodi 00:00:00 00:00:[address] 3.430.2.7 Hospit a .3.046307 l .8 2021-05-29 2021-05-29 Infusion Manuel Calvo 1.2.840.1 [id number] 21 [id number] Methodi 07:45:00 10:45:[address] 3.430.2.7 Hospit a .3.247122 l .8 2021-05-29 2021-05-29 Office Manuel Calvo 1.2.840.1 [id number] 148 [id number] Methodi 09:00:00 09:20:[address] 3.430.2.7 Hospit a .3.211014 l .8 2021-05-29 2021-05-29 Travel 1.2.840.1 1.2.287.799 0323 510524 Methodi 00:00:00 00:00:[address] 3.430.2.7 0.2.7.3.698 Ho spita .3.658272 084.8 l .8 2021-05-23 2021-05-23 Telephone Manuel Calvo 1.2.840.1 [id number] 2 [id number] Methodi 10:20:00 10:40:[address] 3.430.2.7 Hospit a .3.752242 l .8 2021-05-23 2021-05-23 Telephone Manuel Calvo 1.2.840.1 [id number] 2 [id number] Methodi 00:00:00 00:00:[address] 3.430.2.7 Hospit a .3.482884 l .8 2021-05-22 2021-05-22 [facility] Manuel Calvo 1.2.840.1 [id number] 21 [id number] Methodi 09:30:00 23:59:[address] 3.430.2.7 Hospit a .3.893389 l .8 2021-05-22 2021-05-22 Travel 1.2.840.1 1.2.501.038 2281 491746 Methodi 00:00:00 00:00:[address] 3.430.2.7 0.2.7.3.698 Ho spita .3.914817 084.8 l .8 2021-04-17 2021-04-28 Office Manuel Calvo 1.2.840.1 [id number] 368 [id number] Methodi 09:20:00 01:17:[address] 3.430.2.7 Hospit a .3.441998 l .8 2021-04-27 2021-04-27 Orders Provider, 1.2.840.1 [id number] 2100 355304 Methodi 00:00:00 00:00:00 Only Unknown 55069.1.[address] 3.430.2.7 Hospit a .3.147075 l .8 2021-04-26 2021-04-26 Travel 1.2.840.1 1.2.446.425 4944 533672 Methodi 00:00:00 00:00:[address] 3.430.2.7 0.2.7.3.698 Ho spita .3.113158 084.8 l .8 2021-04-26 2021-04-26 Orders [place], 1.2.840.1 [id number] 169 1334112 Methodi 00:00:00 00:00:00 Only Margaret 27332.1.[address] 3.430.2.7 Hospit a .3.568271 l .8 2021-04-26 2021-04-26 [facility], 1.2.840.1 [id number] 893 1506364 Methodi 00:00:00 00:00:00 Only Margaret 83966.1.[address] 3.430.2.7 Hospit a .3.002256 l .8 2021-04-25 2021-04-25 [facility] 1.2.840.1 1.2.068.505 2947 541732 Methodi 00:00:00 00:00:[address] 3.430.2.7 0.2.7.3.698 Ho spita .3.673502 084.8 l .8 2021-04-24 2021-04-24 Infusion Manuel Calvo 1.2.840.1 [id number] 21 [id number] Methodi 07:45:00 12:15:[address] 3.430.2.7 Hospit a .3.459168 l .8 2021-04-24 2021-04-24 Office Manuel Calvo 1.2.840.1 [id number] 752 8103964 Methodi 09:20:00 09:40:[address] 3.430.2.7 Hospit a .3.760894 l .8 2021-04-24 2021-04-24 [facility], 1.2.840.1 [id number] 73671 78422 Methodi 07:00:00 07:24:32 Alexsandra Tirado 85123.1.[address] 3.430.2.7 Hospit a .3.256617 l .8 2021-04-24 2021-04-24 Orders [place] 1.2.840.1 [id number] Methodi 00:00:00 00:00:00 Only , Zara 26600.1.[address] 3.430.2.7 Hospit a .3.245612 l .8 2021-04-24 2021-04-24 Orders Carr, 1.2.840.1 [id number] 2099 819294 Methodi 00:00:00 00:00:00 Only Irma 60451.1.[address] 3.430.2.7 Hospit a .3.102326 l .8 2021-04-23 2021-04-23 Travel 1.2.840.1 1.2.430.419 7932 696323 Methodi 00:00:00 00:00:[address] 3.430.2.7 0.2.7.3.698 Ho spita .3.040287 084.8 l .8 2021-04-19 2021-04-19 [facility], 1.2.840.1 [id number] 06 Methodi 23:59:00 23:59:00 Encounter Marielena Tirado 72576.1.[address] 3.430.2.7 Hospit a .3.092686 l .8 2021-04-19 2021-04-19 [facility], 1.2.840.1 [id number] 89357 Methodi 11:45:00 23:59:00 Encounter Marielena Tirado 06131.1.[address] 3.430.2.7 Hospit a .3.164637 l .8 2021-04-19 2021-04-19 [facility], Marielena Ram. 1.2.840.1 91279 1011 [id number] Methodi 11:15:00 12:14:05 Encounter Makayla Cuevas 29088.1.[address] 3.430.2.7 Hospit a .3.023204 l .8 2021-04-19 2021-04-19 Orders Calvo Manuel 1.2.840.1 [id number] 231 [id number] Methodi 00:00:00 00:00:[address] 3.430.2.7 Hospit a .3.845123 l .8 2021-04-19 2021-04-19 Travel 1.2.840.1 1.2.840.344 2681 197122 Methodi 00:00:00 00:00:[address] 3.430.2.7 0.2.7.3.698 Ho spita .3.056518 084.8 l .8 2021-04-17 2021-04-17 Infusion Manuel Calvo 1.2.840.1 [id number] 21 [id number] Methodi 07:45:00 12:15:[address] 3.430.2.7 Hospit a .3.738687 l .8 2021-04-17 2021-04-17 Travel 1.2.840.1 1.2.938.568 2945 852883 Methodi 00:00:00 00:00:[address] 3.430.2.7 0.2.7.3.698 Ho spita .3.469706 084.8 l .8 2021-04-13 2021-04-13 [facility] [id number] 24416 15193 Methodi 11:30:00 14:00:12 Encounter Marielena Tirado 40249.1.[address] 3.430.2.7 Hospit a .3.840011 l .8 2021-04-12 2021-04-12 [facility] Marielena Ramsay 1.2.840.1 55113 1011 [id number] Methodi 11:15:00 12:08:31 Encounter Stephani Marinelli 65519.1.[address] 3.430.2.7 Hospit a .3.117440 l .8 2021-04-11 2021-04-12 [facility], 1.2.840.1 [id number] 58449 02652 Methodi 01:00:00 01:11:26 Encounter Marielena Tirado 46792.1.[address] 3.430.2.7 Hospit a .3.060123 l .8 2021-04-12 2021-04-12 Travel 1.2.840.1 1.2.642.692 7253 158091 Methodi 00:00:00 00:00:[address] 3.430.2.7 0.2.7.3.698 Ho spita .3.605336 084.8 l .8 2021-04-11 2021-04-11 [facility], 1.2.840.1 [id number] Methodi 11:00:00 11:41:12 Encounter Marielena Tirado 36529.1.[address] 3.430.2.7 Hospit a .3.291238 l .8 2021-04-10 2021-04-10 Infusion Manuel Calvo 1.2.840.1 [id number] 21 [id number] Methodi 11:30:00 16:00:[address] 3.430.2.7 Hospit a .3.431392 l .8 2021-04-10 2021-04-10 Office Manuel Calvo 1.2.840.1 [id number] 436 [id number] Methodi 14:00:00 14:20:[address] 3.430.2.7 Hospit a .3.381792 l .8 2021-04-10 2021-04-10 [facility] 1.2.840.1 [id number] Methodi 10:00:00 10:18:[address] 3.430.2.7 Hospit a .3.018598 l .8 2021-04-10 2021-04-10 Orders Laila, 1.2.840.1 [id number] 286119 5406 Methodi 00:00:00 00:00:00 Only Cecil 45109.1.1 667 [address] t 3.430.2.7 Hospit a .3.045380 l .8 2021-04-10 2021-04-10 Orders Carr, 1.2.840.1 [id number] 2099 343084 Methodi 00:00:00 00:00:00 Only Irma 90518.1.[address] 3.430.2.7 Hospit a .3.016931 l .8 2021-04-10 2021-04-10 Orders [place], 1.2.840.1 [id number] 717198 3630 Methodi 00:00:00 00:00:00 Only Cecilio Miller 34077.1.[address] 3.430.2.7 Hospit a .3.447919 l .8 2021-04-10 2021-04-10 Orders Provider, 1.2.840.1 [id number] 2099 477523 Methodi 00:00:00 00:00:00 Only Unknown 59495.1.[address] 3.430.2.7 Hospit a .3.905642 l .8 2021-04-10 2021-04-10 Travel 1.2.840.1 1.2.618.455 4646 515754 Methodi 00:00:00 00:00:[address] 3.430.2.7 0.2.7.3.698 Ho spita .3.729316 084.8 l .8 2021-04-09 2021-04-09 [facility] 1.2.840.1 [id number] 13032 Methodi 10:58:48 11:12:[address] 3.430.2.7 Hospit a .3.630360 l .8 2021-04-09 2021-04-09 Orders Provider, 1.2.840.1 [id number] 2099 413788 Methodi 00:00:00 00:00:00 Only Unknown 43126.1.[address] 3.430.2.7 Hospit a .3.298399 l .8 2021-04-04 2021-04-04 [facility] 1.2.840.1 029563089 93812 Methodi 10:10:51 10:46:[address] 3.430.2.7 Hospit a .3.612696 l .8 2021-04-04 2021-04-04 Travel 1.2.840.1 1.2.637.765 8934 091570 Methodi 00:00:00 00:00:[address] 3.430.2.7 0.2.7.3.698 Ho spita .3.501078 084.8 l .8 2021-04-04 2021-04-04 Orders Provider, 1.2.840.1 [id number] 2099 019438 Methodi 00:00:00 00:00:00 Only Unknown 78788.1.[address] 3.430.2.7 Hospit a .3.350574 l .8 2021-04-03 2021-04-03 [facility] 1.2.840.1 [id number] 61140 88991 Methodi 23:59:00 23:59:00 Encounter Marielena Tirado 49279.1.[address] 3.430.2.7 Hospit a .3.800284 l .8 2021-04-03 2021-04-03 [facility] 1.2.840.1 [id number] 55326 49323 Methodi 15:30:00 23:59:00 Encounter Marielena Tirado 70574.1.[address] 3.430.2.7 Hospit a .3.886451 l .8 2021-04-03 2021-04-03 [facility] Marielena M. 1.2.840.1 65231 1011 [id number] Methodi 11:07:27 14:09:26 Encounter Stephani Marinelli 12571.1.[address] 3.430.2.7 Hospit a .3.251163 l .8 2021-04-03 2021-04-03 [facility] 1.2.840.1 [id number] 06 Methodi 10:27:11 10:52:[address] 3.430.2.7 Hospit a .3.656541 l .8 2021-04-03 2021-04-03 Orders Provider, 1.2.840.1 [id number] 2099 833478 Methodi 00:00:00 00:00:00 Only Unknown 42455.1.[address] 3.430.2.7 Hospit a .3.444505 l .8 2021-04-02 2021-04-02 Office Manuel Calvo 1.2.840.1 [id number] 302 6840058 Methodi 09:20:00 14:41:[address] 3.430.2.7 Hospit a .3.772105 l .8 2021-04-02 2021-04-02 Infusion Manuel Calvo 1.2.840.1 736233532 96912014 Methodi 08:30:00 14:30:[address] 3.430.2.7 Hospit a .3.603778 l .8 2021-04-02 2021-04-02 [facility] 1.2.840.1 [id number] 90321 60988 Methodi 07:15:00 07:51:[address] 3.430.2.7 Hospit a .3.592203 l .8 2021-04-02 2021-04-02 Orders Manuel Calvo 1.2.840.1 763008792 907 2382747 Methodi 00:00:00 00:00:[address] 3.430.2.7 Hospit a .3.755716 l .8 2021-04-02 2021-04-02 Travel 1.2.840.1 1.2.833.933 9939 406150 Methodi 00:00:00 00:00:[address] 3.430.2.7 0.2.7.3.698 Ho spita .3.980314 084.8 l .8 2021-04-02 2021-04-02 Orders Provider, 1.2.840.1 [id number] 2099385 Methodi 00:00:00 00:00:00 Only Unknown 04338.1.[address] 3.430.2.7 Hospit a .3.711508 l .8 2021-03-30 2021-03-30 [facility] 1.2.840.1 99694970306 Methodi 10:07:02 10:51:[address] 3.430.2.7 Hospit a .3.901909 l .8 2021-03-30 2021-03-30 Orders Provider, 1.2.840.1 [id number] 2099 379277 Methodi 00:00:00 00:00:00 Only Unknown 38630.1.[address] 3.430.2.7 Hospit a .3.955262 l .8 2021-03-29 2021-03-29 [facility] 1.2.840.1 [id number] 25723 56687 Methodi 12:15:00 23:59:00 Encounter Marielena YoMichael 72413.1.[address] 3.430.2.7 Hospit a .3.929593 l .8 2021-03-29 2021-03-29 [facility] Marielena Ram 1.2.840.1 12002 1011 [id number] Methodi 11:13:18 12:51:37 Encounter Stephani Marinelli 37058.1.[address] 3.430.2.7 Hospit a .3.561484 l .8 2021-03-29 2021-03-29 [facility] 1.2.840.1 [id number] Methodi 11:00:00 11:12:[address] 3.430.2.7 Hospit a .3.953220 l .8 2021-03-29 2021-03-29 Travel 1.2.840.1 1.2.718.147 5023 753000 Methodi 00:00:00 00:00:[address] 3.430.2.7 0.2.7.3.698 Ho spita .3.470276 084.8 l .8 2021-03-29 2021-03-29 Orders Provider, 1.2.840.1 [id number] 2099 796459 Methodi 00:00:00 00:00:00 Only Unknown 76407.1.[address] 3.430.2.7 Hospit a .3.916883 l .8 2021-03-28 2021-03-28 [facility] 1.2.840.1 [id number] Methodi 10:03:08 10:14:[address] 3.430.2.7 Hospit a .3.201195 l .8 2021-03-28 2021-03-28 Orders Provider, 1.2.840.1 [id number] 2099 404014 Methodi 00:00:00 00:00:00 Only Unknown 84102.1.[address] 3.430.2.7 Hospit a .3.560902 l .8 2021-03-27 2021-03-27 [facility] 1.2.840.1 [id number] Methodi 14:52:55 15:51:[address] 3.430.2.7 Hospit a .3.802340 l .8 2021-03-26 2021-03-27 [facility] Ventura Navarrete 1.2.840.1 307670 [id number] Methodi 17:45:00 14:05:00 Encounter Frances Kong 66088.1.[address] 3.430.2.7 Hospit a .3.783075 l .8 2021-03-27 2021-03-27 Orders Provider, 1.2.840.1 [id number] 2099 761705 Methodi 00:00:00 00:00:00 Only Unknown 69000.1.[address] 3.430.2.7 Hospit a .3.176755 l .8 2021-03-26 2021-03-26 Infusion Manuel Calvo 1.2.840.1 [id number] 55388712 Methodi 09:30:00 15:30:[address] 3.430.2.7 Hospit a .3.413254 l .8 2021-03-26 2021-03-26 Office aMnuel Calvo 1.2.840.1 [id number] 624 4203475 Methodi 11:00:00 11:20:[address] 3.430.2.7 Hospit a .3.733913 l .8 2021-03-26 2021-03-26 [facility] 1.2.840.1 941287336 78390 Methodi 07:34:29 08:12:[address] 3.430.2.7 Hospit a .3.984636 l .8 2021-03-26 2021-03-26 Orders Carr, 1.2.840.1 [id number] 2099 882767 Methodi 00:00:00 00:00:00 Only Irma 79285.1.[address] 3.430.2.7 Hospit a .3.444374 l .8 2021-03-26 2021-03-26 [facility] 1.2.840.1 1.2.353.449 6671 596063 Methodi 00:00:00 00:00:[address] 3.430.2.7 0.2.7.3.698 Ho spita .3.043006 084.8 l .8 2021-03-26 2021-03-26 Orders Provider, 1.2.840.1 [id number] 2099 866919 Methodi 00:00:00 00:00:00 Only Unknown 64800.1.[address] 3.430.2.7 Hospit a .3.650027 l .8 2021-03-25 2021-03-25 Orders Manuel Calvo 1.2.840.1 [id number] 808 0181133 Methodi 00:00:00 00:00:[address] 3.430.2.7 Hospit a .3.855225 l .8 2021-03-19 2021-03-24 Office Manuel Calvo 1.2.840.1 044691892 081 1635709 Methodi 09:40:00 05:09:[address] 3.430.2.7 Hospit a .3.968778 l .8 2021-03-23 2021-03-23 [facility] 1.2.840.1 156643082 00190 42252 Methodi 10:46:03 11:00:[address] 3.430.2.7 Hospit a .3.106653 l .8 2021-03-23 2021-03-23 [facility] 1.2.840.1 1.2.099.909 2395 439001 Methodi 00:00:00 00:00:[address] 3.430.2.7 0.2.7.3.698 Ho spita .3.613840 084.8 l .8 2021-03-23 2021-03-23 Orders Provider, 1.2.840.1 [id number] 2099 477188 Methodi 00:00:00 00:00:00 Only Unknown 80577.1.[address] 3.430.2.7 Hospit a .3.298657 l .8 2021-03-22 2021-03-22 [facility] 1.2.840.1 [id number] 92847 88149 Methodi 13:30:00 23:59:00 Encounter Marielena Tirado 99132.1.[address] 3.430.2.7 Hospit a .3.093875 l .8 2021-03-22 2021-03-22 [facility] Marielena Tirado .2.840.1 90082 1011 [id number] Methodi 10:52:49 13:07:42 Encounter Duff Vicky Etienne 48720.1.[address] Michael Urrutiaa 3.430.2.7 Hospita .3.223245 l .8 2021-03-22 2021-03-22 [facility] 1.2.840.1 [id number] 51228 Methodi 10:17:08 10:51:[address] 3.430.2.7 Hospit a .3.209503 l .8 2021-03-22 2021-03-22 Orders Provider, 1.2.840.1 [id number] 2099 295983 Methodi 00:00:00 00:00:00 Only Unknown 90170.1.[address] 3.430.2.7 Hospit a .3.635491 l .8 2021-03-21 2021-03-21 Hospital Donta Almendarez 1.2.840.1 91432 1011 [id number] Methodi 11:02:29 15:39:48 Encounter Vicky Duff Etienne 43111.1.[address] [facility] 3.430.2.7 Hospita .3.428066 l .8 2021-03-21 2021-03-21 [facility] 1.2.840.1 [id number] 47421 68737 Methodi 10:01:08 11:01:[address] 3.430.2.7 Hospit a .3.615958 l .8 2021-03-21 2021-03-21 Travel 1.2.840.1 1.2.744.804 3031 065451 Methodi 00:00:00 00:00:[address] 3.430.2.7 0.2.7.3.698 Ho spita .3.003994 084.8 l .8 2021-03-21 2021-03-21 Orders Provider, 1.2.840.1 [id number] 2099 553225 Methodi 00:00:00 00:00:00 Only Unknown 63913.1.[address] 3.430.2.7 Hospit a .3.693596 l .8 2021-03-21 2021-03-21 Orders Madhu 1.2.840.1 [id number] 638 7878879 Methodi 00:00:00 00:00:00 Only Manuel Mccormack 74563.1.[address] 3.430.2.7 Hospit a .3.821900 l .8 2021-03-21 2021-03-21 Orders Manuel Calvo 1.2.840.1 [id number] 888 8912111 Methodi 00:00:00 00:00:[address] 3.430.2.7 Hospit a .3.950624 l .8 2021-03-20 2021-03-20 [facility] 1.2.840.1 [id number] 35559 72248 Methodi 10:34:40 11:10:[address] 3.430.2.7 Hospit a .3.645257 l .8 2021-03-20 2021-03-20 Orders Provider, 1.2.840.1 [id number] 2099 733048 Methodi 00:00:00 00:00:00 Only Unknown 65721.1.[address] 3.430.2.7 Hospit a .3.820613 l .8 2021-03-19 2021-03-19 [facility] 1.2.840.1 [id number] 79541 Methodi 15:33:25 23:59:[address] 3.430.2.7 Hospit a .3.572812 l .8 2021-03-19 2021-03-19 Infusion Manuel Calvo 1.2.840.1 205202550 98643629 Methodi 08:15:00 14:15:[address] 3.430.2.7 Hospit a .3.456872 l .8 2021-03-19 2021-03-19 Orders Provider, 1.2.840.1 [id number] 2099 825664 Methodi 00:00:00 00:00:00 Only Unknown 02389.1.[address] 3.430.2.7 Hospit a .3.715241 l .8 2021-03-19 2021-03-19 Orders Manuel Calvo 1.2.840.1 [id number] 295 9544509 Methodi 00:00:00 00:00:[address] 3.430.2.7 Hospit a .3.673194 l .8 2021-03-19 2021-03-19 Documentat Sousa, 1.2.840.1 [id number] 872 8777860 Methodi 00:00:00 00:00:00 ion Estella 62241.1.[address] 3.430.2.7 Hospit a .3.482072 l .8 2021-03-19 2021-03-19 Travel 1.2.840.1 1.2.142.503 4886 690962 Methodi 00:00:00 00:00:[address] 3.430.2.7 0.2.7.3.698 Ho spita .3.300030 084.8 l .8 2021-03-16 2021-03-16 [facility] 1.2.840.1 [id number] Methodi 10:38:06 11:03:[address] 3.430.2.7 Hospit a .3.198818 l .8 2021-03-16 2021-03-16 Orders [facility], 1.2.840.1 [id number] 2099 120073 Methodi 00:00:00 00:00:00 Only Unknown 79691.1.[address] 3.430.2.7 Hospit a .3.080831 l .8 2021-03-15 2021-03-15 [facility] 1.2.840.1 [id number] 89417 27435 Methodi 12:30:00 23:59:00 Encounter Marielena Tirado 97443.1.[address] 3.430.2.7 Hospit a .3.402604 l .8 2021-03-15 2021-03-15 [facility] Marielena M. 1.2.840.1 29547 1011 [id number] Methodi 11:04:24 12:20:02 Encounter Stephani Marinelli 52087.1.[address] 3.430.2.7 Hospit a .3.259432 l .8 2021-03-15 2021-03-15 [facility] 1.2.840.1 [id number] Methodi 10:36:21 11:03:[address] 3.430.2.7 Hospit a .3.852907 l .8 2021-03-15 2021-03-15 [facility] 1.2.840.1 1.2.459.523 4670 069579 Methodi 00:00:00 00:00:[address] 3.430.2.7 0.2.7.3.698 Ho spita .3.325554 084.8 l .8 2021-03-15 2021-03-15 Orders Provider, 1.2.840.1 [id number] 2099207 Methodi 00:00:00 00:00:00 Only Unknown 39815.1.[address] 3.430.2.7 Hospit a .3.252885 l .8 2021-03-14 2021-03-14 [facility] 1.2.840.1 [id number] 66240 Methodi 10:21:09 10:40:[address] 3.430.2.7 Hospit a .3.914485 l .8 2021-03-14 2021-03-14 Orders Provider, 1.2.840.1 [id number] 2099 394707 Methodi 00:00:00 00:00:00 Only Unknown 11494.1.[address] 3.430.2.7 Hospit a .3.217412 l .8 2021-03-13 2021-03-13 [facility] 1.2.840.1 [id number] 21001 90419 Methodi 11:00:00 11:22:[address] 3.430.2.7 Hospit a .3.995375 l .8 2021-03-12 2021-03-13 [facility] 1.2.840.1 870193663 21001 12200 Methodi 01:00:00 05:01:41 Encounter Marielena Tirado 75485.1.[address] 3.430.2.7 Hospit a .3.720975 l .8 2021-03-13 2021-03-13 Orders Provider, 1.2.840.1 [id number] 2099018 Methodi 00:00:00 00:00:00 Only Unknown 92697.1.[address] 3.430.2.7 Hospit a .3.202695 l .8 2021-03-12 2021-03-12 Infusion Lubna Manuel 1.2.840.1 [id number] 21 [id number] Methodi 08:15:00 14:15:[address] 3.430.2.7 Hospit a .3.468682 l .8 2021-03-12 2021-03-12 Office Manuel Calvo 1.2.840.1 [id number] 587 3291999 Methodi 09:40:00 10:00:[address] 3.430.2.7 Hospit a .3.292432 l .8 2021-03-12 2021-03-12 [facility], 1.2.840.1 [id number] 04887 75390 Methodi 07:30:00 07:51:01 Alexsandra Marielena RamMichael 88914.1.[address] 3.430.2.7 Hospit a .3.256299 l .8 2021-03-12 2021-03-12 Documentat Sousa, 1.2.840.1 797339466 671 4298653 Methodi 00:00:00 00:00:00 mitch Soria 50085.1.[address] 3.430.2.7 Hospit a .3.495249 l .8 2021-03-12 2021-03-12 Travel 1.2.840.1 1.2.075.582 6423 896780 Methodi 00:00:00 00:00:[address] 3.430.2.7 0.2.7.3.698 Ho spita .3.892523 084.8 l .8 2021-03-12 2021-03-12 Orders Provider, 1.2.840.1 [id number] 2099 900970 Methodi 00:00:00 00:00:00 Only Unknown 46738.1.[address] 3.430.2.7 Hospit a .3.679386 l .8 2021-03-11 2021-03-11 Orders Manuel Calvo 1.2.840.1 841350001 639 0054728 Methodi 00:00:00 00:00:[address] 3.430.2.7 Hospit a .3.331522 l .8 2021-03-08 2021-03-08 Travel 1.2.840.1 1.2.429.578 3967 618444 Methodi 00:00:00 00:00:[address] 3.430.2.7 0.2.7.3.698 Ho spita .3.773754 084.8 l .8 2021-03-07 2021-03-07 Nurse Only Rosacina, 1.2.840.1 [id number] 2 [id number] Methodi 00:00:00 00:00:[address] 3.430.2.7 Hospit a .3.295053 l .8 2021-03-07 2021-03-07 Orders Rosacina, 1.2.840.1 [id number] 2099 988040 Methodi 00:00:00 00:00:00 Only Merlessa 11054.1.[address] 3.430.2.7 Hospit a .3.386383 l .8 2021-03-05 2021-03-05 Infusion Manuel Calvo 1.2.840.1 [id number] 21 [id number] Methodi 08:15:00 14:15:[address] 3.430.2.7 Hospit a .3.052603 l .8 2021-03-05 2021-03-05 Office Manuel Calvo 1.2.840.1 027304082 209 3093619 Methodi 09:40:00 10:00:[address] 3.430.2.7 Hospit a .3.598879 l .8 2021-03-05 2021-03-05 Oncology Vásquez, 1.2.840.1 885164776 2100 954828 Methodi 00:00:00 00:00:00 [facility] Evgeny 48537.1.1 774 s t ip 3.430.2.7 Hospit a .3.089009 l .8 2021-03-05 2021-03-05 Travel 1.2.840.1 1.2.384.128 2892 113948 Methodi 00:00:00 00:00:[address] 3.430.2.7 0.2.7.3.698 Ho spita .3.338049 084.8 l .8 2021-03-02 2021-03-02 Travel 1.2.840.1 1.2.026.952 9404 257983 Methodi 00:00:00 00:00:[address] 3.430.2.7 0.2.7.3.698 Ho spita .3.285770 084.8 l .8 2021-02-27 2021-02-27 [facility], 1.2.840.1 [id number] 43376 09437 Methodi 00:00:00 00:00:00 Work Yanni 05106.1.[address] 3.430.2.7 Hospit a .3.325014 l .8 2021-02-26 2021-02-26 Infusion Calvo Manuel 1.2.840.1 [id number] 45224697 Methodi 09:00:00 15:00:[address] 3.430.2.7 Hospit a .3.225008 l .8 2021-02-26 2021-02-26 [facility] 1.2.840.1 [id number] 58793 Methodi 12:00:00 12:45:13 Alexsandra Tirado 81877.1.[address] 3.430.2.7 Hospit a .3.325823 l .8 2021-02-26 2021-02-26 [facility] Marielena Ramsay 1.2.840.1 55545 1189 7528448114 Methodi 10:15:00 10:59:00 Encounter Artem Urrutia 97181.1.[address] 3.430.2.7 Hospit a .3.953257 l .8 2021-02-26 2021-02-26 Office Manuel Calvo 1.2.840.1 [id number] 424 [id number] Methodi 10:00:00 10:20:[address] 3.430.2.7 Hospit a .3.759556 l .8 2021-02-26 2021-02-26 Documentat Chinjohnpenta 1.2.840.1 [id number] Methodi 00:00:00 00:00:00 Zara meyer 33484.1.[address] 3.430.2.7 Hospit a .3.328554 l .8 2021-02-26 2021-02-26 Travel 1.2.840.1 1.2.906.898 6519 554912 Methodi 00:00:00 00:00:[address] 3.430.2.7 0.2.7.3.698 Ho spita .3.596230 084.8 l .8 2021-02-22 2021-02-22 [facility] Lubna Manuel 1.2.840.1 [id number] Methodi 06:58:27 23:59:[address] 3.430.2.7 Hospit a .3.226651 l .8 2021-02-22 2021-02-22 Travel 1.2.840.1 1.2.991.685 6349 735806 Methodi 00:00:00 00:00:[address] 3.430.2.7 0.2.7.3.698 Ho spita .3.430962 084.8 l .8 2021-02-19 2021-02-20 [facility] 1.2.840.1 [id number] 39941 25914 Methodi 01:00:00 04:58:29 Encounter Marielena Tirado 85621.1.[address] 3.430.2.7 Hospit a .3.526074 l .8 2021-02-20 2021-02-20 Telephone Devendra, 1.2.840.1 [id number] Methodi 00:00:00 00:00:00 Marielena Tirado 59830.1.[address] 3.430.2.7 Hospit a .3.552379 l .8 2021-02-19 2021-02-19 Travel 1.2.840.1 1.2.399.659 9845 273546 Methodi 00:00:00 00:00:[address] 3.430.2.7 0.2.7.3.698 Ho spita .3.384303 084.8 l .8 2021-02-19 2021-02-19 Orders [facility], 1.2.840.1 [id number] 216 1251649 Methodi 00:00:00 00:00:00 Only Margaret 54013.1.[address] 3.430.2.7 Hospit a .3.293333 l .8 2021-02-15 2021-02-15 Telephone Devendra, 1.2.840.1 [id number] 2099189 Methodi 00:00:00 00:00:00 Marielena Tirado [address]75.1.[address] 3.430.2.7 Hospit a .3.930294 l .8 2021-02-15 2021-02-15 Travel 1.2.840.1 1.2.049.478 5099 216443 Methodi 00:00:00 00:00:[address] 3.430.2.7 0.2.7.3.698 Ho spita .3.266399 084.8 l .8 2021-02-07 2021-02-14 Office Manuel Calvo 1.2.840.1 [id number] 649 [id number] [facility] 11:20:00 07:01:[address] 3.430.2.7 Hospit a .3.259145 l .8 2021-02-14 2021-02-14 Orders [place], 1.2.840.1 [id number] 741 [id number] [facility] 00:00:00 00:00:00 Only Margaret 89970.1.[address] 3.430.2.7 Hospit a .3.445312 l .8 2021-02-12 2021-02-12 Travel 1.2.840.1 1.2.617.268 5519 [id number] [facility] 00:00:00 00:00:[address] 3.430.2.7 0.2.7.3.698 Ho spita .3.837718 084.8 l .8 2021-02-09 2021-02-09 Orders Manuel Calvo 1.2.840.1 [id number] [facility] 00:00:00 00:00:[address] 3.430.2.7 Hospit a .3.973523 l .8 2021-02-09 2021-02-09 Orders Sri, 1.2.840.1 [id number] 4664 [facility] 00:00:00 00:00:00 Only Deanna 29926.1.[address] 3.430.2.7 Hospit a .3.914908 l .8 2021-02-08 2021-02-08 Orders Nicole Banks, 1.2.840.1 [id number] [facility] 00:00:00 00:00:00 Only Ember 11219.1.[address] 3.430.2.7 Hospit a .3.078951 l .8 2021-02-07 2021-02-07 [facility] Manuel Calvo 1.2.840.1 [id number] [facility] 09:30:00 23:59:[address] 3.430.2.7 Hospit a .3.553939 l .8 2021-02-07 2021-02-07 Travel 1.2.840.1 1.2.890.836 3735 [id number] [facility] 00:00:00 00:00:[address] 3.430.2.7 0.2.7.3.698 Ho spita .3.451404 084.8 l .8 2021-02-06 2021-02-06 Telephone Delfino, 1.2.840.1 [id number] 2099 [id number] [facility] 00:00:00 00:00:[address] 3.430.2.7 Hospit a .3.318351 l .8 2021-02-05 2021-02-05 Telephone Prieto, 1.2.840.1 [id number] 2099 [id number] [facility] 00:00:00 00:00:00 Lotmahendra Richards 72208.1.1 [address] 3.430.2.7 Hospit a .3.025988 l .8 2021-02-04 2021-02-04 Orders Manuel Calvo 1.2.840.1 [id number] 963 [id number] [facility] 00:00:00 00:00:[address] 3.430.2.7 Hospit a .3.140358 l .8 2021-01-25 2021-02-01 [facility], 1.2.840.1 [id number] 4579 [facility] 11:30:00 08:02:08 Donta Rodriguez 34922.1.[address] 3.430.2.7 Hospit a .3.417550 l .8 2021-01-29 2021-01-29 [facility], 1.2.840.1 [id number] 91078 20433 [facility] 09:21:00 17:47:00 Encounter Donta Rodriguez 91639.1.[address] 3.430.2.7 Hospit a .3.695608 l .8 2021-01-29 2021-01-29 [facility], 1.2.840.1 [id number] 0140 Method[facility] 14:20:00 16:30:00 Donta Rodriguez 34207.1.[address] 3.430.2.7 Hospit a .3.823012 l .8 2021-01-29 2021-01-29 Anesthesia Hugh Damon 1.2.840.1 1040 94696 [id number] [facility] 13:05:00 14:57:00 Event Lata Chowdary 72725.1.[address] 3.430.2.7 Hospit a .3.976813 l .8 2021-01-29 2021-01-29 Travel 1.2.840.1 1.2.676.537 8163 [id number] [facility] 00:00:00 00:00:[address] 3.430.2.7 0.2.7.3.698 Ho spita .3.618266 084.8 l .8 2021-01-25 2021-01-25 Office Adalid, 1.2.840.1 [id number] 6622 [facility] 10:00:00 10:53:07 Visit Donta Rodriguez 20024.1.[address] 3.430.2.7 Hospit a .3.375900 l .8 2021-01-25 2021-01-25 Travel 1.2.840.1 1.2.552.532 9892 [id number] [facility] 00:00:00 00:00:[address] 3.430.2.7 0.2.7.3.698 Ho spita .3.237235 084.8 l .8 2021-01-24 2021-01-24 Abstract Levi, 1.2.840.1 [id number] 2100 [id number] [facility] 00:00:00 00:00:[address] 3.430.2.7 Hospit a .3.494904 l .8 2021-01-24 2021-01-24 Telephone Manuel Calvo 1.2.840.1 [id number] [facility] 00:00:00 00:00:[address] 3.430.2.7 Hospit a .3.948175 l .8 2021-01-10 2021-01-10 Outpatient MANUEL CALVO [facility] 2100 [id number] [place] 00:00:00 00:00:[address] 2021-01-10 2021-01-10 Outpatient MANUEL CALVO [facility] 2100 [id number] [place] 00:00:00 00:00:[address] 2021-01-05 2021-01-05 Outpatient MANUEL CALVO [facility] 2100 [id number] [place] 00:00:00 00:00:[address] 2020-12-13 2020-12-13 Outpatient MANUEL CALVO [facility] 2100 [id number] [place] 00:00:00 00:00:[address] 2020-12-13 2020-12-13 Outpatient MANUEL CALVO [facility] 2100 [id number] [place] 00:00:00 00:00:[address] 2020-12-06 2020-12-06 Outpatient MANUEL CALVO [facility] 2100 [id number] [place] 00:00:00 00:00:[address] 2020-11-15 2020-11-15 Outpatient MANUEL CALVO [facility] 2100 [id number] [place] 00:00:00 00:00:[address] 2020-11-15 2020-11-15 Outpatient MANUEL CALVO [facility] 2100 [id number] [place] 00:00:00 00:00:[address] 2020-10-18 2020-10-18 Outpatient MANUEL CALVO [facility] 2100 [id number] [place] 00:00:00 00:00:[address] 2020-10-18 2020-10-18 Outpatient MANUEL CALVO [facility] 2100 [id number] [place] 00:00:00 00:00:[address] 2020-09-20 2020-09-20 Outpatient MANUEL CALVO [facility] 2100 [id number] [place] 00:00:00 00:00:[address] 2020-09-20 2020-09-20 Outpatient MANUEL CALVO [facility] 2100 [id number] [place] 00:00:00 00:00:[address] 2020-09-01 2020-09-01 Outpatient MANUEL CALVO [facility] 2100 [id number] [place] 00:00:00 00:00:[address] 2020-08-23 2020-08-23 Outpatient MANUEL CALVO [facility] 2100 [id number] [place] 00:00:00 00:00:[address] 2020-08-23 2020-08-23 Outpatient MANUEL CALVO [facility] 2100 [id number] [place] 00:00:00 00:00:[address] 2020-07-26 2020-07-26 Outpatient MANUEL CALVO [facility] 2100 [id number] [place] 00:00:00 00:00:[address] 2020-07-26 2020-07-26 Outpatient MANUEL CALVO [facility] 2100 [id number] [place] 00:00:00 00:00:[address] 2020-06-30 2020-07-14 Outpatient MANUEL CALVO [facility] 2100 [id number] [place] 00:00:00 00:00:[address] 2020-06-28 2020-06-28 Outpatient MANUEL CALVO [facility] 2100 [id number] [place] 00:00:00 00:00:[address] 2020-06-28 2020-06-28 Outpatient MANUEL CALVO [facility] 2100 [id number] [place] 00:00:00 00:00:[address] 2020-05-31 2020-05-31 Outpatient MANUEL CALVO [facility] 2100 [id number] [place] 00:00:00 00:00:[address] 2020-05-31 2020-05-31 Outpatient MANUEL CALVO [facility] 2100 [id number] [place] 00:00:00 00:00:[address] 2020-05-29 2020-05-29 Outpatient MANUEL CALVO [facility] 2100 [id number] [place] 00:00:00 00:00:[address] 2020-05-03 2020-05-03 Outpatient MANUEL CALVO [facility] 2100 [id number] [place] 00:00:00 00:00:[address] 2020-05-03 2020-05-03 Outpatient MANUEL CALVO [facility] 2100 [id number] [place] 00:00:00 00:00:[address] 2020-04-04 2020-04-04 Outpatient CALVO, [facility] 2100 [id number] [place] 00:00:00 00:00:[address] 2020-04-04 2020-04-04 Outpatient CALVO, [facility] 2100 [id number] [place] 00:00:00 00:00:[address] 2020-03-16 2020-03-16 Outpatient CALVO, [facility] 2100 [id number] [place] 00:00:00 00:00:[address] 2020-03-08 2020-03-08 Outpatient CALVO, [facility] 2100 [id number] [place] 00:00:00 00:00:[address] 2020-03-08 2020-03-08 Outpatient CALVO, [facility] 2100 [id number] [place] 00:00:00 00:00:[address] 2020-02-09 2020-02-09 Outpatient CALVO, MANUEL [facility] 2100 [id number] [place] 00:00:00 00:00:[address] 2020-02-09 2020-02-09 Outpatient CALVO, [facility] 2100 [id number] [place] 00:00:00 00:00:[address] 2020-01-12 2020-01-12 Outpatient CALVO, [facility] 2100 [id number] [place] 00:00:00 00:00:[address] 2020-01-12 2020-01-12 Outpatient CALVO, [facility] 2100 [id number] [place] 00:00:00 00:00:[address] 2020-01-11 2020-01-11 Outpatient CALVO, [facility] 2100 [id number] [place] 00:00:00 00:00:[address] 2019-12-22 2019-12-22 Outpatient CALVO, [facility] 2100 [id number] [place] 00:00:00 00:00:[address] 2019-12-15 2019-12-15 Outpatient CALVO, [facility] 2100 [id number] [place] 00:00:00 00:00:[address] 2019-12-15 2019-12-15 Outpatient CALVO, [facility] 2100 [id number] [place] 00:00:00 00:00:[address] 2019-12-15 2019-12-15 Outpatient CALVO, [facility] 2100 [id number] [place] 00:00:00 00:00:[address] 2019-12-02 2019-12-02 Outpatient MANUEL CALVO [facility] 2100 [id number] [place] 00:00:00 00:00:[address] 2019-11-17 2019-11-17 Outpatient MANUEL CALVO [facility] 2100 [id number] [place] 00:00:00 00:00:[address] 2019-11-17 2019-11-17 Outpatient LUBNA [facility] 2100 [id number] [place] 00:00:00 00:00:[address] 2019-11-03 2019-11-03 Outpatient MADHU [facility] 2100 [id number] [place] 00:00:00 00:00:00 MANUEL [address] 2019-10-20 2019-10-20 Outpatient MANUEL CALVO [facility] 2100 [id number] [place] 00:00:00 00:00:[address] 2019-10-20 2019-10-20 Outpatient LUBNA [facility] 2100 [id number] [place] 00:00:00 00:00:[address] 2019-10-13 2019-10-13 Outpatient FARACH, [facility] [id number] [place] 00:00:00 00:00:00 MARIELENA [address] 2019-10-13 2019-10-13 Outpatient FARACH, [facility] [id number] 237 [place] 00:00:00 00:00:00 MARIELENA [address] 2019-10-13 2019-10-13 Outpatient FARACH, [facility] [id number] 516 [place] 00:00:00 00:00:00 MARIELENA [address] 2019-10-11 2019-10-12 Outpatient FARACH, [facility] [id number] [place] 00:00:00 00:00:00 MARIELENA [address] 2019-10-11 2019-10-11 Outpatient FARACH, [facility] [id number] [place] 00:00:00 00:00:00 MARIELENA [address] 2019-10-08 2019-10-08 Outpatient FARACH, [facility] [id number] [place] 00:00:00 00:00:00 MARIELENA [address] 2019-10-08 2019-10-08 Outpatient FARACH, [facility] [id number] [place] 00:00:00 00:00:00 MARIELENA [address] 2019-10-06 2019-10-06 Outpatient FARACH, [facility] [id number] [place] 00:00:00 00:00:00 MARIELENA [address] 2019-10-05 2019-10-05 Outpatient FARACH, [facility] [id number] [place] 00:00:00 00:00:00 MARIELENA [address] 2019-09-29 2019-09-29 Outpatient LUBNA, [facility] 2100 [id number] [place] 00:00:00 00:00:[address] 2019-09-29 2019-09-29 Outpatient CALVO, [facility] 2100 [id number] [place] 00:00:00 00:00:[address] 2019-09-29 2019-09-29 Outpatient LUBNA, [facility] 2100 [id number] [place] 00:00:00 00:00:[address] 2019-09-29 2019-09-29 Outpatient LUBNA, [facility] 2100 [id number] [place] 00:00:00 00:00:[address] 2019-09-29 2019-09-29 Outpatient FARACH, [facility] [id number] [place] 00:00:00 00:00:00 MARIELENA [address] 2019-09-23 2019-09-23 Outpatient FARACH, [facility] [id number] 492 [place] 00:00:00 00:00:00 MARIELENA [address] 2019-09-20 2019-09-21 Outpatient FARACH, [facility] [id number] 239 [place] 00:00:00 00:00:00 MARIELENA [address] 2019-09-20 2019-09-20 Outpatient LUBNA, [facility] 2100 [id number] [place] 00:00:00 00:00:[address] 2019-09-20 2019-09-20 Outpatient FARACH, [facility] [id number] 239 [place] 00:00:00 00:00:00 MARIELENA [address] 2019-09-10 2019-09-11 Outpatient FARACH, [facility] [id number] 796 [place] 00:00:00 00:00:00 MARIELENA [address] 2019-09-02 2019-09-02 Outpatient LYNN, [facility] [id number] 202 [place] 00:00:00 00:00:00 EDWARD [address] 2019-08-24 2019-08-24 Outpatient LYNN, [facility] [id number] [place] 00:00:00 00:00:00 EDWARD [address] 2019-08-02 2019-08-02 Outpatient LYNN, [facility] [id number] 125 [place] 00:00:00 00:00:00 EDWARD [address] 2019-07-20 2019-07-20 Outpatient LYNN, [place] [id number] 911 [place] 00:00:00 00:00:00 EDWARD [address] 2019-07-08 2019-07-08 Outpatient LYNN, [facility] [id number] [place] 00:00:00 00:00:00 EDWARD [address] 2019-07-08 2019-07-08 Outpatient LYNN, [facility] [id number] 364 [place] 00:00:00 00:00:00 EDWARD [address] 2019-07-08 2019-07-08 Outpatient LYNN, [facility] [id number] [place] 00:00:00 00:00:00 EDWARD [address] 2019-07-08 2019-07-08 Outpatient LYNN, [facility] [id number] 650 [place] 00:00:00 00:00:00 EDWARD [address] Results Test Description Test Time Test Comments Results Result Comments Source ECG 12 lead 2022-10-31 18:29:24 Test Item Value Reference Range Interpretation Comme nts Ventricular rate (test code = 253) 92 Atrial rate (test code = 255) 92 OK interval (test code = 266) 138 QRSD interval (test code = 260) 94 QT interval (test code = 264) 398 QTC interval (test code = 265) 492 P axis 1 (test code = 267) 58 QRS axis 1 (test code = 268) 35 T wave axis (test code = 270) 51 EKG impression (test code = 273) Sinus rhythm with premature atrial complexes- [facility] [id number] 14:55:00 Test Item Value Reference Range Interpretation Comments POC glucose (test 97 mg/dL 65-99 [place] N libby: Susan code = 19469-4) FatimaDevice ID: [id number] able: No Action Needed [facility] [id number] 19:13:43 Test Item Value Reference Range Interpretation Comments Case number (test code = [id number]) Surgical pathology See link below for report (test code = PDF Lab Report [id number]) Result status (test code This is Final Report = [id number]) for [id number] [facility] [id number] 16:47:59 Test Item Value Reference Range Interpretation Comments SUPPLIER NAME (test [facility] code = 6415) SUPPLIER PHONE (test code = 6416) ORDER STATUS (test code Delivery Successful = 6417) DELIVERY NOTE (test code = 6419) REQUESTED DELIVEY DATE 10/30/2022 (test code = 6420) ITEM DESCRIPTION (test Wheeled Walker, Adult Qty: 1 code = 6423) EXPECTED DELIVERY DATE 10/30/2022 (test code = 6421) ACTUAL DELIVERY DATE 10/30/2022 (test code = 6422) [facility] 1 [id number] 09:49:00 Test Item Value Reference Range Interpretation Comments Product name (test code Platelets Aph LR, Path = 25) Red cont2 Unit number (test code [id number] = [id number]) Product code (test code Q6352K19 = 3092) Dispense status (test Transfused code = 24) Blood expiration date [id number] (test code = 302) Blood type code (test 6200 code = 308) Blood type (test code = A POSITIVE 1314) Compatibility (test Not required code = 6400) [facility] [id number] 15:22:25 Test Item Value Reference Range Interpretation Comments Course ID (test code = C4 5706) Course Start Date (test 2022-07-08 @14:51 code = 5707) Treatment Elapsed Days 10 (test code = 5709) Course Intent (test code Curative w/chemo = 5686) Treatment Dates (test First Treatment Date: code = 5685) 2022-07-16 @14:30Last Treatment Date: 2022-07-26 @10:14 Reference Point ID (test Liver code = 5710) Dosage Given to Date in 50 Gy (test code = 5711) Session Dosage Given in 10 Gy (test code = 5712) Plan ID (test code = Liver 5713) Plan Name (test code = Liver 5714) Fractions Treated to 5 of 5 Date (test code = 5715) Prescribed Dose Per 10 Fraction in Gy (test code = 5716) Prescription Dose in cGy 5000 (test code = 5717) [facility] DAILY [id number] 15:22:25 Test Item Value Reference Range Interpretation Comments Course ID (test code = C4 5706) Course Start Date (test 2022-07-08 @14:51 code = 5707) Treatment Elapsed Days 10 (test code = 5709) Course Intent (test code Curative w/chemo = 5686) Treatment Dates (test First Treatment Date: code = 5685) 2022-07-16 @14:30Last Treatment Date: 2022-07-26 @10:14 Reference Point ID (test Liver code = 5710) Dosage Given to Date in 50 Gy (test code = 5711) Session Dosage Given in 10 Gy (test code = 5712) Plan ID (test code = Liver 5713) Plan Name (test code = Liver 5714) Fractions Treated to 5 of 5 Date (test code = 5715) Prescribed Dose Per 10 Fraction in Gy (test code = 5716) Prescription Dose in cGy 5000 (test code = 5717) [facility] DAILY [id number] 18:21:01 Test Item Value Reference Range Interpretation [...] in cGy 5000 (test code = 5717) [facility] DAILY [id number] 18:21:01 Test Item Value Reference Range Interpretation [...] in cGy 5000 (test code = 5717) [facility] DAILY [id number] 18:26:14 Test Item Value Reference Range Interpretation [...] in cGy 5000 (test code = 5717) [facility] DAILY [id number] 18:26:14 Test Item Value Reference Range Interpretation [...] in cGy 5000 (test code = 5717) [facility] DAILY [id number] 19:49:09 Test Item Value Reference Range Interpretation [...] in cGy 5000 (test code = 5717) [facility] DAILY [id number] 19:49:09 Test Item Value Reference Range Interpretation [...] in cGy 5000 (test code = 5717) [facility] DAILY [id number] 20:40:34 Test Item Value Reference Range Interpretation [...] in cGy 5000 (test code = 5717) [facility] DAILY [id number] 20:40:34 Test Item Value Reference Range Interpretation [...] in cGy 5000 (test code = 5717) [facility] [id number] 16:28:00 Test Item Value Reference Range Interpretation Comments POC glucose (test code 108 mg/dL 65-99 [facility] [employer] tor Name: Casanova = [id number]) BlaineDevice ID : [id number] able: [facility] 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 Interpretation Abnormal (test code = 63254-0) [facility] ONC COURSE [id number] 14:20:15 Test Item Value Reference Range Interpretation [...] = 5710) Dosage Given to Date in 60.9502793 Gy (test code = 5711) Plan ID (test code = Subcarina 5713) Plan Name (test code = Subcarina 5714) Fractions Treated to 30 Date (test code = 5715) Prescribed Dose Per 2 Fraction in Gy (test code = 5716) Prescription Dose in cGy 6000 (test code = 5717) [facility] ONC COURSE [id number] 14:20:15 Test Item Value Reference Range Interpretation [...] = 5710) Dosage Given to Date in 60.9158716 Gy (test code = 5711) Plan ID (test code = Subcarina 5713) Plan Name (test code = Subcarina 5714) Fractions Treated to Date (test code = 5715) Prescribed Dose Per 2 Fraction in Gy (test code = 5716) Prescription Dose in cGy 6000 (test code = 5717) [facility] DAILY [id number] 20:08:59 Test Item Value Reference Range Interpretation [...] = 5710) Dosage Given to Date in 60.6742736 Gy (test code = 5711) Session Dosage Given in 2.41413592 Gy (test code = 5712) Plan ID (test code = Subcarina 5713) Fractions Treated to Date (test code = 5715) Prescribed Dose Per 2 Fraction in Gy (test code = 5716) Prescription Dose in cGy 6000 (test code = 5717) [facility] DAILY [id number] 20:08:59 Test Item Value Reference Range Interpretation [...] = 5710) Dosage Given to Date in 60.5836531 Gy (test code = 5711) Session Dosage Given in 2.73703548 Gy (test code = 5712) Plan ID (test code = Subcarina 5713) Fractions Treated to Date (test code = 5715) Prescribed Dose Per 2 Fraction in Gy (test code = 5716) Prescription Dose in cGy 6000 (test code = 5717) [facility] DAILY [id number] 17:27:33 Test Item Value Reference Range Interpretation [...] = 5710) Dosage Given to Date in 58.36848065 Gy (test code = 5711) Session Dosage Given in 2.08964646 Gy (test code = 5712) Plan ID (test code = Subcarina 5713) Fractions Treated to Date (test code = 5715) Prescribed Dose Per 2 Fraction in Gy (test code = 5716) Prescription Dose in cGy 6000 (test code = 5717) [facility] DAILY [id number] 17:27:33 Test Item Value Reference Range Interpretation [...] = 5710) Dosage Given to Date in 58.42892258 Gy (test code = 5711) Session Dosage Given in 2.92090354 Gy (test code = 5712) Plan ID (test code = Subcarina 5713) Fractions Treated to Date (test code = 5715) Prescribed Dose Per 2 Fraction in Gy (test code = 5716) Prescription Dose in cGy 6000 (test code = 5717) [facility] DAILY [id number] 18:20:49 Test Item Value Reference Range Interpretation [...] = 5710) Dosage Given to Date in 56.88657316 Gy (test code = 5711) Session Dosage Given in 2.24743508 Gy (test code = 5712) Plan ID (test code = Subcarina 5713) Fractions Treated to Date (test code = 5715) Prescribed Dose Per 2 Fraction in Gy (test code = 5716) Prescription Dose in cGy 6000 (test code = 5717) [facility] DAILY [id number] 18:20:49 Test Item Value Reference Range Interpretation [...] = 5710) Dosage Given to Date in 56.44450336 Gy (test code = 5711) Session Dosage Given in 2.04471801 Gy (test code = 5712) Plan ID (test code = Subcarina 5713) Fractions Treated to Date (test code = 5715) Prescribed Dose Per 2 Fraction in Gy (test code = 5716) Prescription Dose in cGy 6000 (test code = 5717) [facility] DAILY [id number] 18:51:26 Test Item Value Reference Range Interpretation [...] = 5710) Dosage Given to Date in 54.90224418 Gy (test code = 5711) Session Dosage Given in 2.65540697 Gy (test code = 5712) Plan ID (test code = Subcarina 5713) Fractions Treated to Date (test code = 5715) Prescribed Dose Per 2 Fraction in Gy (test code = 5716) Prescription Dose in cGy 6000 (test code = 5717) [facility] DAILY [id number] 18:51:26 Test Item Value Reference Range Interpretation [...] = 5710) Dosage Given to Date in 54.15942092 Gy (test code = 5711) Session Dosage Given in 2.49964443 Gy (test code = 5712) Plan ID (test code = Subcarina 5713) Fractions Treated to Date (test code = 5715) Prescribed Dose Per 2 Fraction in Gy (test code = 5716) Prescription Dose in cGy 6000 (test code = 5717) [facility] DAILY [id number] 18:43:10 Test Item Value Reference Range Interpretation [...] = 5710) Dosage Given to Date in 52.79045325 Gy (test code = 5711) Session Dosage Given in 2.31718552 Gy (test code = 5712) Plan ID (test code = Subcarina 5713) Fractions Treated to Date (test code = 5715) Prescribed Dose Per 2 Fraction in Gy (test code = 5716) Prescription Dose in cGy 6000 (test code = 5717) [facility] ONC DAILY [id number] 18:43:10 Test Item Value Reference Range Interpretation [...] = 5710) Dosage Given to Date in 52.75176297 Gy (test code = 5711) Session Dosage Given in 2.19542009 Gy (test code = 5712) Plan ID (test code = Subcarina 5713) Fractions Treated to Date (test code = 5715) Prescribed Dose Per 2 Fraction in Gy (test code = 5716) Prescription Dose in cGy 6000 (test code = 5717) [facility] ONC DAILY [id number] 20:31:22 Test Item Value Reference Range Interpretation [...] = 5710) Dosage Given to Date in 50.55724731 Gy (test code = 5711) Session Dosage Given in 2.85710693 Gy (test code = 5712) Plan ID (test code = Subcarina 5713) Fractions Treated to Date (test code = 5715) Prescribed Dose Per 2 Fraction in Gy (test code = 5716) Prescription Dose in cGy 6000 (test code = 5717) [facility] ONC DAILY [id number] 20:31:22 Test Item Value Reference Range Interpretation [...] = 5710) Dosage Given to Date in 50.67980872 Gy (test code = 5711) Session Dosage Given in 2.29231484 Gy (test code = 5712) Plan ID (test code = Subcarina 5713) Fractions Treated to Date (test code = 5715) Prescribed Dose Per 2 Fraction in Gy (test code = 5716) Prescription Dose in cGy 6000 (test code = 5717) [facility] DAILY [id number] 17:08:15 Test Item Value Reference Range Interpretation [...] = 5710) Dosage Given to Date in 48.17988601 Gy (test code = 5711) Session Dosage Given in 2.52945428 Gy (test code = 5712) Plan ID (test code = Subcarina 5713) Fractions Treated to Date (test code = 5715) Prescribed Dose Per 2 Fraction in Gy (test code = 5716) Prescription Dose in cGy 6000 (test code = 5717) [facility] DAILY [id number] 17:08:15 Test Item Value Reference Range Interpretation [...] = 5710) Dosage Given to Date in 48.62459742 Gy (test code = 5711) Session Dosage Given in 2.46376595 Gy (test code = 5712) Plan ID (test code = Subcarina 5713) Fractions Treated to Date (test code = 5715) Prescribed Dose Per 2 Fraction in Gy (test code = 5716) Prescription Dose in cGy 6000 (test code = 5717) [facility] DAILY [id number] 20:03:00 Test Item Value Reference Range Interpretation Comments Course ID (test code = C3 5706) Course Start Date (test 2022-01-18 @16:41 code = 5707) Treatment Elapsed Days 30 (test code = 5709) Course Intent (test code Curative = 5686) Treatment Dates (test First Treatment Date: code = 568) 2022-02-05 @16:32Last Treatment Date: 2022-03-07 @15:00 Reference Point ID (test Subcarina code = 5710) Dosage Given to Date in 46.23057772 Gy (test code = 5711) Session Dosage Given in 2.41772620 Gy (test code = 5712) Plan ID (test code = Subcarina 5713) Fractions Treated to Date (test code = 5715) Prescribed Dose Per 2 Fraction in Gy (test code = 5716) Prescription Dose in cGy 6000 (test code = 5717) [facility] DAILY [id number] 20:03:00 Test Item Value Reference Range Interpretation [...] = 5710) Dosage Given to Date in 46.82729791 Gy (test code = 5711) Session Dosage Given in 2.39886117 Gy (test code = 5712) Plan ID (test code = Subcarina 5713) Fractions Treated to Date (test code = 5715) Prescribed Dose Per 2 Fraction in Gy (test code = 5716) Prescription Dose in cGy 6000 (test code = 5717) [facility] ONC DAILY [id number] 18:57:31 Test Item Value Reference Range Interpretation [...] = 5710) Dosage Given to Date in 44.00828738 Gy (test code = 5711) Session Dosage Given in 2.76369316 Gy (test code = 5712) Plan ID (test code = Subcarina 5713) Fractions Treated to Date (test code = 5715) Prescribed Dose Per 2 Fraction in Gy (test code = 5716) Prescription Dose in cGy 6000 (test code = 5717) [facility] ONC DAILY [id number] 18:57:31 Test Item Value Reference Range Interpretation [...] = 5710) Dosage Given to Date in 44.69657237 Gy (test code = 5711) Session Dosage Given in 2.83280988 Gy (test code = 5712) Plan ID (test code = Subcarina 5713) Fractions Treated to Date (test code = 5715) Prescribed Dose Per 2 Fraction in Gy (test code = 5716) Prescription Dose in cGy 6000 (test code = 5717) [facility] ONC DAILY [id number] 19:29:30 Test Item Value Reference Range Interpretation [...] = 5710) Dosage Given to Date in 42.26309453 Gy (test code = 5711) Session Dosage Given in 2.87974931 Gy (test code = 5712) Plan ID (test code = Subcarina 5713) Fractions Treated to Date (test code = 5715) Prescribed Dose Per 2 Fraction in Gy (test code = 5716) Prescription Dose in cGy 6000 (test code = 5717) [facility] DAILY [id number] 19:29:30 Test Item Value Reference Range Interpretation [...] = 5710) Dosage Given to Date in 42.33969005 Gy (test code = 5711) Session Dosage Given in 2.52336444 Gy (test code = 5712) Plan ID (test code = Subcarina 5713) Fractions Treated to Date (test code = 5715) Prescribed Dose Per 2 Fraction in Gy (test code = 5716) Prescription Dose in cGy 6000 (test code = 5717) [facility] DAILY [id number] 18:24:12 Test Item Value Reference Range Interpretation [...] = 5710) Dosage Given to Date in 40.6026566 Gy (test code = 5711) Session Dosage Given in 2.16408302 Gy (test code = 5712) Plan ID (test code = Subcarina 5713) Fractions Treated to Date (test code = 5715) Prescribed Dose Per 2 Fraction in Gy (test code = 5716) Prescription Dose in cGy 6000 (test code = 5717) [facility] DAILY [id number] 18:24:12 Test Item Value Reference Range Interpretation [...] = 5710) Dosage Given to Date in 40.7640969 Gy (test code = 5711) Session Dosage Given in 2.88350100 Gy (test code = 5712) Plan ID (test code = Subcarina 5713) Fractions Treated to Date (test code = 5715) Prescribed Dose Per 2 Fraction in Gy (test code = 5716) Prescription Dose in cGy 6000 (test code = 5717) [facility] DAILY [id number] 19:46:04 Test Item Value Reference Range Interpretation [...] = 5710) Dosage Given to Date in 38.81393397 Gy (test code = 5711) Session Dosage Given in 2.26678596 Gy (test code = 5712) Plan ID (test code = Subcarina 5713) Fractions Treated to Date (test code = 5715) Prescribed Dose Per 2 Fraction in Gy (test code = 5716) Prescription Dose in cGy 6000 (test code = 5717) [facility] DAILY [id number] 19:46:04 Test Item Value Reference Range Interpretation [...] = 5710) Dosage Given to Date in 38.44108497 Gy (test code = 5711) Session Dosage Given in 2.53594420 Gy (test code = 5712) Plan ID (test code = Subcarina 5713) Fractions Treated to Date (test code = 5715) Prescribed Dose Per 2 Fraction in Gy (test code = 5716) Prescription Dose in cGy 6000 (test code = 5717) [facility] DAILY [id number] 20:13:22 Test Item Value Reference Range Interpretation [...] = 5710) Dosage Given to Date in 36.17192304 Gy (test code = 5711) Session Dosage Given in 2.83078612 Gy (test code = 5712) Plan ID (test code = Subcarina 5713) Fractions Treated to Date (test code = 5715) Prescribed Dose Per 2 Fraction in Gy (test code = 5716) Prescription Dose in cGy 6000 (test code = 5717) [facility] DAILY [id number] 20:13:22 Test Item Value Reference Range Interpretation [...] = 5710) Dosage Given to Date in 36.33138105 Gy (test code = 5711) Session Dosage Given in 2.25162813 Gy (test code = 5712) Plan ID (test code = Subcarina 5713) Fractions Treated to Date (test code = 5715) Prescribed Dose Per 2 Fraction in Gy (test code = 5716) Prescription Dose in cGy 6000 (test code = 5717) [facility] DAILY [id number] 20:28:42 Test Item Value Reference Range Interpretation [...] = 5710) Dosage Given to Date in 34.76856233 Gy (test code = 5711) Session Dosage Given in 2.63875407 Gy (test code = 5712) Plan ID (test code = Subcarina 5713) Fractions Treated to Date (test code = 5715) Prescribed Dose Per 2 Fraction in Gy (test code = 5716) Prescription Dose in cGy 6000 (test code = 5717) [facility] DAILY [id number] 20:28:42 Test Item Value Reference Range Interpretation [...] = 5710) Dosage Given to Date in 34.93116161 Gy (test code = 5711) Session Dosage Given in 2.00776942 Gy (test code = 5712) Plan ID (test code = Subcarina 5713) Fractions Treated to Date (test code = 5715) Prescribed Dose Per 2 Fraction in Gy (test code = 5716) Prescription Dose in cGy 6000 (test code = 5717) [facility] DAILY [id number] 20:36:08 Test Item Value Reference Range Interpretation [...] = 5710) Dosage Given to Date in 32.57232253 Gy (test code = 5711) Session Dosage Given in 2.28476523 Gy (test code = 5712) Plan ID (test code = Subcarina 5713) Fractions Treated to Date (test code = 5715) Prescribed Dose Per 2 Fraction in Gy (test code = 5716) Prescription Dose in cGy 6000 (test code = 5717) [facility] DAILY [id number] 20:36:08 Test Item Value Reference Range Interpretation [...] = 5710) Dosage Given to Date in 32.58307482 Gy (test code = 5711) Session Dosage Given in 2.00302216 Gy (test code = 5712) Plan ID (test code = Subcarina 5713) Fractions Treated to Date (test code = 5715) Prescribed Dose Per 2 Fraction in Gy (test code = 5716) Prescription Dose in cGy 6000 (test code = 5717) [facility] DAILY [id number] 19:36:27 Test Item Value Reference Range Interpretation [...] = 5710) Dosage Given to Date in 30.71837536 Gy (test code = 5711) Session Dosage Given in 2.49257153 Gy (test code = 5712) Plan ID (test code = Subcarina 5713) Fractions Treated to 15 30 Date (test code = 5715) Prescribed Dose Per 2 Fraction in Gy (test code = 5716) Prescription Dose in cGy 6000 (test code = 5717) [facility] DAILY [id number] 19:36:27 Test Item Value Reference Range Interpretation [...] = 5710) Dosage Given to Date in 30.08750573 Gy (test code = 5711) Session Dosage Given in 2.21898779 Gy (test code = 5712) Plan ID (test code = Subcarina 5713) Fractions Treated to 15 30 Date (test code = 5715) Prescribed Dose Per 2 Fraction in Gy (test code = 5716) Prescription Dose in cGy 6000 (test code = 5717) [facility] DAILY [id number] 20:26:13 Test Item Value Reference Range Interpretation [...] = 5710) Dosage Given to Date in 28.31238103 Gy (test code = 5711) Session Dosage Given in 2.62719273 Gy (test code = 5712) Plan ID (test code = Subcarina 5713) Fractions Treated to Date (test code = 5715) Prescribed Dose Per 2 Fraction in Gy (test code = 5716) Prescription Dose in cGy 6000 (test code = 5717) [facility] DAILY [id number] 20:26:13 Test Item Value Reference Range Interpretation [...] = 5710) Dosage Given to Date in 28.73962301 Gy (test code = 5711) Session Dosage Given in 2.14856148 Gy (test code = 5712) Plan ID (test code = Subcarina 5713) Fractions Treated to Date (test code = 5715) Prescribed Dose Per 2 Fraction in Gy (test code = 5716) Prescription Dose in cGy 6000 (test code = 5717) [facility] DAILY [id number] 20:31:32 Test Item Value Reference Range Interpretation [...] = 5710) Dosage Given to Date in 26.87789478 Gy (test code = 5711) Session Dosage Given in 2.96359021 Gy (test code = 5712) Plan ID (test code = Subcarina 5713) Fractions Treated to Date (test code = 5715) Prescribed Dose Per 2 Fraction in Gy (test code = 5716) Prescription Dose in cGy 6000 (test code = 5717) [facility] DAILY [id number] 20:31:32 Test Item Value Reference Range Interpretation [...] = 5710) Dosage Given to Date in 26.86875722 Gy (test code = 5711) Session Dosage Given in 2.64423568 Gy (test code = 5712) Plan ID (test code = Subcarina 5713) Fractions Treated to Date (test code = 5715) Prescribed Dose Per 2 Fraction in Gy (test code = 5716) Prescription Dose in cGy 6000 (test code = 5717) [facility] DAILY [id number] 20:27:20 Test Item Value Reference Range Interpretation [...] = 5710) Dosage Given to Date in 24.58196410 Gy (test code = 5711) Session Dosage Given in 2.42970550 Gy (test code = 5712) Plan ID (test code = Subcarina 5713) Fractions Treated to Date (test code = 5715) Prescribed Dose Per 2 Fraction in Gy (test code = 5716) Prescription Dose in cGy 6000 (test code = 5717) [facility] DAILY [id number] 20:27:20 Test Item Value Reference Range Interpretation [...] = 5710) Dosage Given to Date in 24.56109208 Gy (test code = 5711) Session Dosage Given in 2.95443887 Gy (test code = 5712) Plan ID (test code = Subcarina 5713) Fractions Treated to Date (test code = 5715) Prescribed Dose Per 2 Fraction in Gy (test code = 5716) Prescription Dose in cGy 6000 (test code = 5717) [facility] DAILY [id number] 22:25:50 Test Item Value Reference Range Interpretation [...] = 5710) Dosage Given to Date in 22.67400159 Gy (test code = 5711) Session Dosage Given in 2.54095711 Gy (test code = 5712) Plan ID (test code = Subcarina 5713) Fractions Treated to Date (test code = 5715) Prescribed Dose Per 2 Fraction in Gy (test code = 5716) Prescription Dose in cGy 6000 (test code = 5717) [facility] DAILY [id number] 22:25:50 Test Item Value Reference Range Interpretation [...] = 5710) Dosage Given to Date in 22.96023049 Gy (test code = 5711) Session Dosage Given in 2.76662268 Gy (test code = 5712) Plan ID (test code = Subcarina 5713) Fractions Treated to Date (test code = 5715) Prescribed Dose Per 2 Fraction in Gy (test code = 5716) Prescription Dose in cGy 6000 (test code = 5717) [facility] DAILY [id number] 20:27:27 Test Item Value Reference Range Interpretation [...] = 5710) Dosage Given to Date in 20.3471568 Gy (test code = 5711) Session Dosage Given in 2.43264270 Gy (test code = 5712) Plan ID (test code = Subcarina 5713) Fractions Treated to Date (test code = 5715) Prescribed Dose Per 2 Fraction in Gy (test code = 5716) Prescription Dose in cGy 6000 (test code = 5717) [facility] DAILY [id number] 20:27:27 Test Item Value Reference Range Interpretation [...] = 5710) Dosage Given to Date in 20.5218002 Gy (test code = 5711) Session Dosage Given in 2.50677322 Gy (test code = 5712) Plan ID (test code = Subcarina 5713) Fractions Treated to Date (test code = 5715) Prescribed Dose Per 2 Fraction in Gy (test code = 5716) Prescription Dose in cGy 6000 (test code = 5717) [facility] DAILY [id number] 20:09:22 Test Item Value Reference Range Interpretation [...] = 5710) Dosage Given to Date in 18.31383505 Gy (test code = 5711) Session Dosage Given in 2.82578388 Gy (test code = 5712) Plan ID (test code = Subcarina 5713) Fractions Treated to Date (test code = 5715) Prescribed Dose Per 2 Fraction in Gy (test code = 5716) Prescription Dose in cGy 6000 (test code = 5717) [facility] DAILY [id number] 20:09:22 Test Item Value Reference Range Interpretation [...] = 5710) Dosage Given to Date in 18.59965796 Gy (test code = 5711) Session Dosage Given in 2.54356350 Gy (test code = 5712) Plan ID (test code = Subcarina 5713) Fractions Treated to 9 of 30 Date (test code = 5715) Prescribed Dose Per 2 Fraction in Gy (test code = 5716) Prescription Dose in cGy 6000 (test code = 5717) [facility] DAILY [id number] 20:31:50 Test Item Value Reference Range Interpretation [...] = 5710) Dosage Given to Date in 16.63771630 Gy (test code = 5711) Session Dosage Given in 2.27920282 Gy (test code = 5712) Plan ID (test code = Subcarina 5713) Fractions Treated to Date (test code = 5715) Prescribed Dose Per 2 Fraction in Gy (test code = 5716) Prescription Dose in cGy 6000 (test code = 5717) [facility] DAILY [id number] 20:31:50 Test Item Value Reference Range Interpretation [...] = 5710) Dosage Given to Date in 16.90777264 Gy (test code = 5711) Session Dosage Given in 2.52302952 Gy (test code = 5712) Plan ID (test code = Subcarina 5713) Fractions Treated to Date (test code = 5715) Prescribed Dose Per 2 Fraction in Gy (test code = 5716) Prescription Dose in cGy 6000 (test code = 5717) [facility] DAILY [id number] 18:38:55 Test Item Value Reference Range Interpretation [...] = 5710) Dosage Given to Date in 14.42659343 Gy (test code = 5711) Session Dosage Given in 2.64430490 Gy (test code = 5712) Plan ID (test code = Subcarina 5713) Fractions Treated to Date (test code = 5715) Prescribed Dose Per 2 Fraction in Gy (test code = 5716) Prescription Dose in cGy 6000 (test code = 5717) [facility] DAILY [id number] 18:38:55 Test Item Value Reference Range Interpretation [...] = 5710) Dosage Given to Date in 14.38074193 Gy (test code = 5711) Session Dosage Given in 2.56754310 Gy (test code = 5712) Plan ID (test code = Subcarina 5713) Fractions Treated to Date (test code = 5715) Prescribed Dose Per 2 Fraction in Gy (test code = 5716) Prescription Dose in cGy 6000 (test code = 5717) [facility] DAILY [id number] 20:16:34 Test Item Value Reference Range Interpretation [...] = 5710) Dosage Given to Date in 12.64381994 Gy (test code = 5711) Session Dosage Given in 2.83298248 Gy (test code = 5712) Plan ID (test code = Subcarina 5713) Fractions Treated to Date (test code = 5715) Prescribed Dose Per 2 Fraction in Gy (test code = 5716) Prescription Dose in cGy 6000 (test code = 5717) [facility] DAILY [id number] 20:16:34 Test Item Value Reference Range Interpretation [...] = 5710) Dosage Given to Date in 12.55072810 Gy (test code = 5711) Session Dosage Given in 2.37074147 Gy (test code = 5712) Plan ID (test code = Subcarina 5713) Fractions Treated to Date (test code = 5715) Prescribed Dose Per 2 Fraction in Gy (test code = 5716) Prescription Dose in cGy 6000 (test code = 5717) [facility] DAILY [id number] 18:34:11 Test Item Value Reference Range Interpretation [...] = 5710) Dosage Given to Date in 10.97775635 Gy (test code = 5711) Session Dosage Given in 2.36673346 Gy (test code = 5712) Plan ID (test code = Subcarina 5713) Fractions Treated to Date (test code = 5715) Prescribed Dose Per 2 Fraction in Gy (test code = 5716) Prescription Dose in cGy 6000 (test code = 5717) [facility] DAILY [id number] 18:34:11 Test Item Value Reference Range Interpretation [...] = 5710) Dosage Given to Date in 10.34534169 Gy (test code = 5711) Session Dosage Given in 2.72498522 Gy (test code = 5712) Plan ID (test code = Subcarina 5713) Fractions Treated to Date (test code = 5715) Prescribed Dose Per 2 Fraction in Gy (test code = 5716) Prescription Dose in cGy 6000 (test code = 5717) [facility] DAILY [id number] 20:19:58 Test Item Value Reference Range Interpretation [...] = 5710) Dosage Given to Date in 8.67100378 Gy (test code = 5711) Session Dosage Given in 2.01462499 Gy (test code = 5712) Plan ID (test code = Subcarina 5713) Fractions Treated to Date (test code = 5715) Prescribed Dose Per 2 Fraction in Gy (test code = 5716) Prescription Dose in cGy 6000 (test code = 5717) [facility] DAILY [id number] 20:19:58 Test Item Value Reference Range Interpretation [...] = 5710) Dosage Given to Date in 8.33862593 Gy (test code = 5711) Session Dosage Given in 2.16250173 Gy (test code = 5712) Plan ID (test code = Subcarina 5713) Fractions Treated to Date (test code = 5715) Prescribed Dose Per 2 Fraction in Gy (test code = 5716) Prescription Dose in cGy 6000 (test code = 5717) [facility] DAILY [id number] 20:02:52 Test Item Value Reference Range Interpretation [...] = 5710) Dosage Given to Date in 6.94833015 Gy (test code = 5711) Session Dosage Given in 2.63737938 Gy (test code = 5712) Plan ID (test code = Subcarina 5713) Fractions Treated to Date (test code = 5715) Prescribed Dose Per 2 Fraction in Gy (test code = 5716) Prescription Dose in cGy 6000 (test code = 5717) [facility] DAILY [id number] 20:02:52 Test Item Value Reference Range Interpretation [...] = 5710) Dosage Given to Date in 6.48132677 Gy (test code = 5711) Session Dosage Given in 2.93980624 Gy (test code = 5712) Plan ID (test code = Subcarina 5713) Fractions Treated to 3 Date (test code = 5715) Prescribed Dose Per 2 Fraction in Gy (test code = 5716) Prescription Dose in cGy 6000 (test code = 5717) [facility] DAILY [id number] 21:37:52 Test Item Value Reference Range Interpretation [...] = 5710) Dosage Given to Date in 4.77241313 Gy (test code = 5711) Session Dosage Given in 2.75727846 Gy (test code = 5712) Plan ID (test code = Subcarina 5713) Fractions Treated to Date (test code = 5715) Prescribed Dose Per 2 Fraction in Gy (test code = 5716) Prescription Dose in cGy 6000 (test code = 5717) [facility] DAILY [id number] 21:37:52 Test Item Value Reference Range Interpretation [...] = 5710) Dosage Given to Date in 4.16361519 Gy (test code = 5711) Session Dosage Given in 2.16992638 Gy (test code = 5712) Plan ID (test code = Subcarina 5713) Fractions Treated to 2 30 Date (test code = 5715) Prescribed Dose Per 2 Fraction in Gy (test code = 5716) Prescription Dose in cGy 6000 (test code = 5717) [facility] DAILY [id number] 21:43:41 Test Item Value Reference Range Interpretation [...] = 5710) Dosage Given to Date in 2.56177910 Gy (test code = 5711) Session Dosage Given in 2.83519680 Gy (test code = 5712) Plan ID (test code = Subcarina 5713) Fractions Treated to Date (test code = 5715) Prescribed Dose Per 2 Fraction in Gy (test code = 5716) Prescription Dose in cGy 6000 (test code = 5717) [facility] DAILY [id number] 21:43:41 Test Item Value Reference Range Interpretation [...] = 5710) Dosage Given to Date in 2.40176359 Gy (test code = 5711) Session Dosage Given in 2.58639568 Gy (test code = 5712) Plan ID (test code = Subcarina 5713) Fractions Treated to Date (test code = 5715) Prescribed Dose Per 2 Fraction in Gy (test code = 5716) Prescription Dose in cGy 6000 (test code = 5717) [facility] [id number] 12:55:00 Test Item Value Reference Range Interpretation Comments POC glucose (test code 112 mg/dL 65-99 H Opera tor Name: Edilberto = [id number]) BlaineDevice ID : [id number] able: TM 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 Interpretation Abnormal (test code = 96338-9) [facility] ONC COURSE [id number] 19:56:56 Test Item Value Reference Range Interpretation [...] = Mediastinum 5714) Fractions Treated to 20 20 Date (test code = 5715) Prescribed Dose Per Fraction in Gy (test code = 5716) Prescription Dose in cGy (test code = 5717) [facility] DAILY [id number] 13:24:35 Test Item Value Reference Range Interpretation [...] = Boost 5713) Fractions Treated to of Date (test code = 5715) Prescribed Dose Per Fraction in Gy (test code = 5716) Prescription Dose in cGy (test code = 5717) [facility] DAILY [id number] 16:45:25 Test Item Value Reference Range Interpretation [...] Dose in cGy (test code = 5717) [facility] DAILY [id number] 16:45:46 Test Item Value Reference Range Interpretation [...] Dose in cGy (test code = 5717) [facility] DAILY [id number] 17:14:34 Test Item Value Reference Range Interpretation [...] in cGy (test code = 5717) [facility] DAILY [id number] 17:29:35 Test Item Value Reference Range Interpretation [...] in cGy (test code = 5717) [facility] DAILY [id number] 13:11:43 Test Item Value Reference Range Interpretation [...] in cGy (test code = 5717) [facility] DAILY [id number] 16:51:36 Test Item Value Reference Range Interpretation [...] Dose in cGy (test code = 5717) [facility] DAILY [id number] 17:37:41 Test Item Value Reference Range Interpretation [...] Dose in cGy (test code = 5717) [facility] DAILY [id number] 17:27:38 Test Item Value Reference Range Interpretation [...] in cGy (test code = 5717) [facility] DAILY [id number] 17:41:13 Test Item Value Reference Range Interpretation [...] Dose in cGy (test code = 5717) [facility] DAILY [id number] 16:18:41 Test Item Value Reference Range Interpretation [...] in cGy (test code = 5717) [facility] DAILY [id number] 17:12:42 Test Item Value Reference Range Interpretation [...] Dose in cGy (test code = 5717) [facility] DAILY [id number] 16:46:28 Test Item Value Reference Range Interpretation [...] Dose in cGy (test code = 5717) [facility] DAILY [id number] 16:52:47 Test Item Value Reference Range Interpretation [...] Dose in cGy (test code = 5717) [facility] DAILY [id number] 13:51:59 Test Item Value Reference Range Interpretation [...] Dose in cGy (test code = 5717) [facility] DAILY [id number] 16:51:51 Test Item Value Reference Range Interpretation [...] Dose in cGy (test code = 5717) [facility] DAILY [id number] 17:12:14 Test Item Value Reference Range Interpretation [...] Dose in cGy (test code = 5717) [facility] DAILY [id number] 16:14:16 Test Item Value Reference Range Interpretation [...] Dose in cGy (test code = 5717) [facility] DAILY [id number] 21:51:17 Test Item Value Reference Range Interpretation [...] Dose in cGy (test code = 5717) Karly WoodyARS-CoV-2 (COVID-19) RNA [Presence] in Respiratory specimen by JOANN with probe [id number] 02:53:28 Test Item Value Reference Range Interpretation Comments SARS-CoV-2 (COVID-19) RNA Not detected Not-Detected [Presence] in Respiratory specimen by JOANN with probe detection (test code = 79494-2) Whether patient is employed in a healthcare setting (test code = 12855-8) Whether the patient has symptoms related to condition of interest (test code = 48122-6) Patient was hospitalized because of this condition (test code = 14370-6) Whether the patient was admitted to intensive care unit (ICU) for condition of interest (test code = 18115-9) Whether patient resides in a congregate care setting (test code = 06327-9) TU SOLIS 12 [id number] 02:03:24 Test Item Value Reference Range Interpretation Comments Ventricular rate (test code = 253) Atrial rate (test code = 255) OK interval (test code = 266) QRSD interval [...] 25-JAN-2021 11:45,-premature atrial complexes are now present- [facility] DA[facility] [id number] 14:12:43 Test Item Value Reference Range Interpretation [...] Dose in cGy (test code = 5717) [facility] [id number] 00:18:32 Test Item Value Reference Range Interpretation Comments Case number (test code = [id number]) Cytology See link below for (non-gynecological) PDF Lab Report report (test code = 1178) Result status (test code This is Final Report = [id number]) for [id number] [facility] Rh [id number] 16:51:00 Test Item Value Reference Range Interpretation Comments ABO grouping (test code = 883-9) A Rh type (test code = 64405-2) POS [facility] [id number] 18:41:00 Test Item Value Reference Range Interpretation Comments ABO grouping (test code = 883-9) A Rh type (test code = 32184-9) POS Antibody screen (gel) (test code = NEG 890-4) [facility] ([facility]OVID[facility]19) RNA [Presence] in Respiratory specimen by JOANN with probe [id number] 17:58:19 Test Item Value Reference Range Interpretation Comments SARS-CoV-2 (COVID-19) RNA Not detected Not-Detected [Presence] in Respiratory specimen by JOANN with probe detection (test code = 58939-5) Whether patient is employed in a healthcare setting (test code = 79032-4) Whether the patient has symptoms related to condition of interest (test code = 00136-9) Patient was hospitalized because of this condition (test code = 91669-8) Whether the patient was admitted to intensive care unit (ICU) for condition of interest (test code = 95034-6) Whether patient resides in a congregate care setting (test code = 96617-5) [facility] DOUGLAS
[2022-11-06 23:35] LABS: Hematocrit 31.8 % (36.0-45.0); Lymphocytes % 13.4 % (15.3-44.8); MCV 96.4 fL (80-100); MPV 11.4 fL (7.6-11.3)
[2022-11-06 23:44] LABS: Potassium 3.8 mEq/L (3.5-5.1); Troponin High Sensitivity 10.1 pg/mL (<58.9)
[2022-11-07] MEDS ORDERED: NA CHLORIDE 0.9% 500 ML ONE (00:39)
[2022-11-07] MEDS ORDERED: HYDROCODONE/APAP 5/325 MG TAB ONE (01:00)
--- NOTE | 2022-11-07 01:23 | ER ---
Nurse's Notes [facility] Name: Maite Severino Age: 62 yrs Sex: Female : 1960 Arrival Date: 11/06/2022 Time: 21:50 Bed 8 Private MD: Diagnosis: Fall on same level, unspecified;Slurred speech;Unspecified abnormalities of gait and mobility;UTI/ Urinary tract infection, site not specified Presentation: 11/06 22:24 Chief complaint: Patient states: brain tumor removal x 5 days ago bent over to pick kl something up fell fore pringle hitting forehead. Coronavirus screen: Vaccine status: Patient reports receiving the 2nd dose of the covid vaccine. Ebola Screen: Patient negative for fever greater than or equal to 101.5 degrees Fahrenheit, and additional compatible Ebola Virus Disease symptoms. Initial Sepsis Screen: Does the patient meet any 2 criteria? No. Patient's initial sepsis screen is negative. Does the patient have a suspected source of infection? No. Patient's initial sepsis screen is negative. Risk Assessment: Do you want to hurt yourself or someone else? Patient reports no desire to harm self or others. 22:24 Method Of Arrival: Ambulatory 22:24 Acuity: MINH 3 kl Triage Assessment: 22:29 General: Appears distressed, uncomfortable, Behavior is cooperative. Pain: Complains of kl pain in forehead Pain currently is 8 out of 10 on a pain scale. Neuro: Reports son reports patient at baseline. Historical: - Allergies: 22:27 No Known Allergies; kl - PMHx: 22:27 Asthma; Lung Cancer; Schizophrenia; brain tumor; kl - PSHx: 22:27 Cholecystectomy; tunor removal; kl - Immunization history:: Adult Immunizations up to date. - Social history:: Smoking status: Patient reports the use of cigarette tobacco products, Patient/guardian denies using tobacco, the patient reports quitting approximately 17 years ago. Screenin:11 [facility] ED Fall Risk Assessment (Adult) History of falling in the last 3 months, lg3 including since admission Yes- single mechanical fall (1 pt) Confusion or Disorientation No (0 pts) Intoxicated or Sedated No (0 pts) Impaired Gait No (0 pts) Mobility Assist Device Used No (0 pt) Altered Elimination No (0 pt) Score/Fall Risk Level 3 or more points = High Risk Oriented to surroundings, Maintained a safe environment, Educated pt \T\ family on fall prevention, incl call for assistance when getting out of bed. Abuse screen: Denies threats or abuse. Denies injuries from another. Nutritional screening: No deficits noted. Tuberculosis screening: No symptoms or risk factors identified. Assessment: 23:11 General: Appears in no apparent distress. comfortable, Behavior is calm, cooperative. lg3 Pain: Complains of pain in forehead. Neuro: Level of Consciousness is awake, alert, obeys commands, Oriented to person, place, time, situation, pt reports sudden onset of confusion starting this evening that is intermittent . Cardiovascular: No deficits noted. Denies chest pain, shortness of breath, Capillary refill < 3 seconds Clubbing of nail beds is absent JVD is absent Patient's skin is warm and dry. Respiratory: No deficits noted. Airway is patent Respiratory effort is even, unlabored, Respiratory pattern is regular, symmetrical. GI: No deficits noted. No signs and/or symptoms were reported involving the gastrointestinal system. Abdomen is round non-distended. : No deficits noted. No signs and/or symptoms were reported regarding the genitourinary system. EENT: No deficits noted. No signs and/or symptoms were reported regarding the EENT system. Derm: Skin is intact, is healthy with good turgor, Skin is dry, Skin is normal, Skin temperature is warm Wound noted head Wound is post surgical incision noted with sutures in place. Musculoskeletal: Circulation, motion, and sensation intact. Range of motion: intact in all extremities, Reports generalized weakness. 11/07 00:19 Reassessment: Patient appears in no apparent distress at this time. No changes from lg3 previously documented assessment. Patient and/or family updated on plan of care and expected duration. Pain level reassessed. Patient is alert, oriented x 3, equal unlabored respirations, skin warm/dry/pink. 00:54 Reassessment: Patient appears in no apparent distress at this time. No changes from lg3 previously documented assessment. Patient and/or family updated on plan of care and expected duration. Pain level reassessed. Patient is alert, oriented x 3, equal unlabored respirations, skin warm/dry/pink. Pain: Complains of pain in head Pain currently is 6 out of 10 on a pain scale. 01:49 Reassessment: Patient appears in no apparent distress at this time. No changes from lg3 previously documented assessment. Patient and/or family updated on plan of care and expected duration. Pain level reassessed. Patient is alert, oriented x 3, equal unlabored respirations, skin warm/dry/pink. Patient states feeling better. Patient states symptoms have improved. 04:12 Reassessment: Patient appears in no apparent distress at this time. No changes from lg3 previously documented assessment. Patient and/or family updated on plan of care and expected duration. Pain level reassessed. Patient is alert, oriented x 3, equal unlabored respirations, skin warm/dry/pink. Patient states feeling better. Patient states symptoms have improved. Vital Signs: 11/06 22:24 BP 128 / 91; Pulse 99; Resp 20; Temp 98(TE); Pulse Ox 97% ; Weight 77.11 kg (R); Height kl 5 ft. 1 in. ; Pain 8/10; 11/07 00:19 BP 116 / 74; Pulse 95; Resp 18 S; Pulse Ox 98% on R/A; lg3 01:49 BP 109 / 79; Pulse 91; Resp 17 S; Pulse Ox 98% on R/A; lg3 04:13 BP 113 / 71; Pulse 90; Resp 18 S; Pulse Ox 97% on R/A; lg3 11/06 22:24 Body Mass Index 32.12 (77.11 kg, 154.94 cm) 11/06 22:24 Pain Scale: Adult ED Course: 11/06 21:53 Patient arrived in ED. ja2 22:15 Marcial Kim PA is PHCP. cp 22:15 Roberto Salazar MD is Attending Physician. cp 22:27 Triage completed. kl 23:02 XRAY Knee RIGHT 3 view In Process Unspecified. EDMS 23:02 XRAY Chest (1 view) In Process Unspecified. EDMS 23:08 Shanon Gipson, HAZEL is Primary Nurse. lg3 23:11 Patient has correct armband on for positive identification. Placed in gown. Bed in low lg3 position. Call light in reach. Side rails up X 1. Client placed on continuous cardiac and pulse oximetry monitoring. NIBP monitoring applied. Door closed. Noise minimized. Warm blanket given. Family accompanied patient. 23:13 CT Head C Spine In Process Unspecified. EDMS 23:18 Basic Metabolic Panel Sent. rv1 23:18 CBC with Diff Sent. rv1 23:18 Troponin HS Sent. rv1 23:18 Lactate w/ 2H reflex if indic. Sent. rv1 23:18 Inserted saline lock: 20 gauge in right antecubital area, using aseptic technique. rv1 Blood collected. 11/07 03:21 Urine Culture Sent. lg3 03:35 Blood Culture Adult (2) Sent. lg3 05:14 No provider procedures requiring assistance completed. Patient transferred, IV remains lg3 in place. intact, No redness/swelling at site. Administered Medications: 00:53 Drug: NS 0.9% IV 500 ml Route: IV; Rate: bolus; Site: right antecubital; lg3 03:21 Follow up: IV Status: Completed infusion; IV Intake: 500ml lg3 00:53 Drug: HYDROcodone-acetaminophen PO 5 mg-325 mg 1 tabs Route: PO; lg3 03:21 Follow up: Response: No adverse reaction; Marked relief of symptoms; Pain is decreased lg3 03:51 Drug: Rocephin IV 1 grams Route: IV; Rate: calculated rate; Site: right antecubital; lg3 04:13 Follow up: Response: No adverse reaction; IV Status: Completed infusion; IV Intake: [id number] Medication: 05:14 VIS not applicable for this client. lg3 Intake: 03:21 IV: 500ml; Total: 500ml. lg3 04:13 IV: 10ml; Total: 510ml. lg3 Outcome: 01:23 ER care complete, transfer ordered by MD. gonzalez 05:14 Transferred by ground EMS to [facility], Transfer form completed. lg3 05:14 Condition: stable 05:14 Instructed on the need for transfer, Demonstrated understanding of instructions. 05:14 Patient left the ED. lg3 Signatures: Dispatcher [employer] EDMS Babs Mcdonald RN RN Marcial Steward PA PA cp Gibson, Lacie, RN RN lg3 Henna Vasquez Rebecca rv1 Corrections: (The following items were deleted from the chart) 04:12 01:49 BP 109 / 79; Pulse 91bpm; Resp 7bpm; Spontaneous; Pulse Ox 98% RA; lg3 lg3
--- NOTE | 2022-11-07 01:23 | EDPHYS ---
Physician Documentation [facility] Name: Maite Severino Age: 62 yrs Sex: Female : 1960 Arrival Date: 11/06/2022 Time: 21:50 Bed 8 Private MD: ED Physician Roberto Salazar HPI: 11/06 23:00 This 62 yrs old Female presents to ER via Ambulatory with complaints of Fall Injury. cp 23:00 Details of fall: The patient fell from an upright position. Onset: The symptoms/episode cp began/occurred today. 23:00 Associated injuries: The patient sustained injury to the head. cp 23:00 Patient is a 62-year-old female with a history of lung cancer, brain tumor, asthma, cp schizophrenia. Patient was brought to the emergency room today with reported unwitnessed fall in which patient struck head. Daughter reports patient with slurred speech today and unsteady gait since fall. Daughter reports the patient had brain tumor removed approximately [address] Abdullahi at [facility] in [place]. Historical: - Allergies: 22:27 No Known Allergies; kl - PMHx: 22:27 Asthma; Lung Cancer; Schizophrenia; brain tumor; kl - PSHx: 22:27 Cholecystectomy; tunor removal; kl - Immunization history:: Adult Immunizations up to date. - Social history:: Smoking status: Patient reports the use of cigarette tobacco products, Patient/guardian denies using tobacco, the patient reports quitting approximately 17 years ago. ROS: 23:05 Constitutional: Negative for body aches, chills, fever, poor PO intake. cp 23:05 Eyes: Negative for injury, pain, redness, and discharge. cp 23:05 ENT: Negative for drainage from ear(s), ear pain, sore throat, difficulty swallowing, difficulty handling secretions. 23:05 Cardiovascular: Negative for chest pain. 23:05 Respiratory: Negative for cough, shortness of breath, wheezing. 23:05 Abdomen/GI: Negative for abdominal pain, nausea, vomiting, and diarrhea. 23:05 : Negative for urinary symptoms. 23:05 Neuro: Positive for gait disturbance, headache, speech changes, Negative for altered mental status, syncope. 23:05 All other systems are negative. Exam: 23:10 Constitutional: The patient appears in no acute distress, alert, awake, cp non-diaphoretic, non-toxic, well developed, well nourished. 23:10 Head/face: Noted is swelling, that is mild, of the top of head, tenderness, that is cp mild, of the top of head, surgical scar of frontal scalp appears without significant swelling, no erythema and no drainage noted. 23:10 Eyes: Periorbital structures: appear normal, Pupils: equal, round, and reactive to light and accomodation, Extraocular movements: intact throughout, Conjunctiva: normal, no exudate, no injection, Sclera: no appreciated abnormality, Lids and lashes: appear normal, bilaterally. 23:10 ENT: External ear(s): are unremarkable, Ear canal(s): are normal, clear, TM's: dullness, bilaterally, Nose: is normal, Mouth: Lips: moist, Oral mucosa: pink and intact, moist, Posterior pharynx: is normal, airway is patent, no erythema, no exudate. 23:10 Neck: C-spine: vertebral tenderness, is not appreciated, crepitus, is not appreciated, ROM/movement: is normal, is supple, without pain, no range of motions limitations. 23:10 Chest/axilla: Inspection: normal, Palpation: is normal, no crepitus, no tenderness. 23:10 Cardiovascular: Rate: normal, Rhythm: regular, Edema: is not appreciated, JVD: is not appreciated. 23:10 Respiratory: the patient does not display signs of respiratory distress, Respirations: normal, no use of accessory muscles, no retractions, labored breathing, is not present, Breath sounds: are clear throughout, no decreased breath sounds, no stridor, no wheezing. 23:10 Abdomen/GI: Inspection: abdomen appears normal, Palpation: abdomen is soft and non-tender, in all quadrants. 23:10 Back: pain, is absent, ROM is normal. 23:10 Musculoskeletal/extremity: Exam is negative for decreased range of motion, deformity, injury. 23:10 Neuro: Orientation: to person, place, situation, Mentation: able to follow commands, Motor: moves all fours, negative for focal weakness, Sensation: no obvious gross deficits. 23:53 ECG was reviewed by the Attending Physician. cp Vital Signs: 22:24 BP 128 / 91; Pulse 99; Resp 20; Temp 98(TE); Pulse Ox 97% ; Weight 77.11 kg (R); Height kl 5 ft. 1 in. ; Pain 8/10; 11/07 00:19 BP 116 / 74; Pulse 95; Resp 18 S; Pulse Ox 98% on R/A; lg3 01:49 BP 109 / 79; Pulse 91; Resp 17 S; Pulse Ox 98% on R/A; lg3 04:13 BP 113 / 71; Pulse 90; Resp 18 S; Pulse Ox 97% on R/A; lg3 11/06 22:24 Body Mass Index 32.12 (77.11 kg, 154.94 cm) kl 11/06 22:24 Pain Scale: Adult kl MDM: 11/06 22:32 Patient medically screened. 11/07 00:00 Differential diagnosis: closed head injury, contusion, fracture, laceration, multiple cp trauma. 01:42 Data reviewed: vital signs, nurses notes, lab test result(s), EKG, radiologic studies, cp CT scan, plain films. 02:52 ED course: consult with attending at [facility] in [place] who will accept cp patient as transfer after discussion. 11/06 22:45 Order name: Basic Metabolic Panel; Complete Time: 00:24 cp 11/07 00:24 Interpretation: Normal except: CO2 34. 11/06 22:45 Order name: CBC with Diff; Complete Time: 00:24 cp 11/07 00:24 Interpretation: Normal except: RBC 3.30; HGB 10.3; HCT 31.8; MPV 11.4; MESFIN% 77.5; LYM% cp 13.4. 11/06 22:45 Order name: Troponin HS; Complete Time: 00:24 cp 11/06 22:45 Order name: Urinalysis W/Microscopic; Complete Time: 02:47 cp 11/07 02:50 Interpretation: Normal except: [facility] Extremely Turbid; UBLD 1+; UPROT 1+; UNIT 2+; UESTR cp 500; UWBC >50; URBC 5-10; UBACT Loaded; MUCUS 4+. 11/06 22:45 Order name: Lactate w/ 2H reflex if indic.; Complete Time: 00:24 cp 11/07 02:15 Order name: Urine Culture EDMS 11/07 02:49 Order name: Blood Culture Adult (2) cp 11/06 22:45 Order name: CT Head C Spine cp 11/06 22:45 Order name: XRAY Knee RIGHT 3 view cp 11/06 22:45 Order name: XRAY Chest (1 view) cp 11/06 22:45 Order name: EKG; Complete Time: 22:46 cp 11/06 22:45 Order name: Cardiac monitoring; Complete Time: 23:51 cp 11/06 22:45 Order name: EKG - Nurse/Tech; Complete Time: 23:51 cp 11/06 22:45 Order name: IV Saline Lock; Complete Time: 23:18 cp 11/06 22:45 Order name: Labs collected and sent; Complete Time: 23:18 cp 11/06 22:45 Order name: O2 Per Protocol; Complete Time: 23:42 cp 11/06 22:45 Order name: O2 Sat Monitoring; Complete Time: 23:42 cp EC/28 23:53 Rate is 93 beats/min. Rhythm is regular. [place] interval is normal. QRS interval is normal. cp QT interval is prolonged at 418 msec. Interpreted by me. Reviewed by me. Administered Medications: 11/07 00:53 Drug: NS 0.9% IV 500 ml Route: IV; Rate: bolus; Site: right antecubital; lg3 03:21 Follow up: IV Status: Completed infusion; IV Intake: 500ml lg3 00:53 Drug: HYDROcodone-acetaminophen PO 5 mg-325 mg 1 tabs Route: PO; lg3 03:21 Follow up: Response: No adverse reaction; Marked relief of symptoms; Pain is decreased lg3 03:51 Drug: Rocephin IV 1 grams Route: IV; Rate: calculated rate; Site: right antecubital; lg3 04:13 Follow up: Response: No adverse reaction; IV Status: Completed infusion; IV Intake: [id number] Disposition: 04:53 Co-signature as Attending Physician, Roberto Salazar MD I agree with the assessment sp4 and plan of care. I reviewed the patient's care provided by the Advanced Practice Provider and agree with the diagnosis and treatment plan. Disposition Summary: 11/07/22 01:23 Transfer Ordered Transfer Location: [facility] cp Reason: Higher level of care cp Condition: Stable cp Problem: new cp Symptoms: are unchanged cp Accepting Physician: DR Ken Pina(06/29/23 05:14) lg3 Diagnosis - Fall on same level, unspecified cp - Slurred speech cp - Unspecified abnormalities of gait and mobility cp - UTI/ Urinary tract infection, site not specified cp Forms: - Medication Reconciliation Form cp - SBAR form cp Signatures: Dispatcher [employer] Babs Osuna RN RN Marcial Steward PA PA cp Shanon Gipson RN RN lg3 Roberto Salazar MD MD sp4 Corrections: (The following items were deleted from the chart) 02:51 01:23 Doctor cp cp 03:00 02:51 Doctor cp cp 05:14 03:00 DR Ken Pina cp lg3
[2022-11-07 02:07] LABS: Specific Gravity 1.021 (1.005-1.030); Urine Bacteria Loaded /HPF (<20); Urine Bilirubin NEGATIVE (Negative); Urine Blood 1+ (Negative); Urine Clarity Extremely Turbid (Clear); Urine Color Yellow (Yellow); Urine Glucose NEGATIVE (Negative); Urine Mucus 4+ /HPF (None Seen); Urine Protein 1+ (Negative); Urine Urobilinogen Normal (Normal); Urine pH 5.5 (5.0-7.0)
[2022-11-07] MEDS ORDERED: CEFTRIAXONE 1000 MG/VIAL ONE (03:52)
[2022-11-07 05:19] VITALS: TEMP 98
[2022-11-07 05:25] VITALS: BP 113/71; O2SAT 97
--- NOTE | 2022-11-07 12:35 | EKG ---
Test Date: 2022-11-06 Test Time: 23:47:09 Factory Helper: RV MEASUREMENT RESULTS: Intervals: Rate: 93 DC: 148 QRSD: 84 QT: 418 QTc: 519 [place]: P: 73 DC: 148 QRS: 73 T: 58 INTERPRETIVE STATEMENTS: Sinus rhythm with sinus arrhythmia with occasional premature ventricular complexes Nonspecific T wave abnormality Prolonged QT Abnormal ECG Compared to ECG 10/20/2022 12:57:38 Ventricular premature complex(es) now present T-wave abnormality still present Electronically Signed On 11-07-22 12:34:08 CDT by Gera Hawkins
--- NOTE | 2022-11-07 17:57 | RAD REPORT ---
EXAM DESCRIPTION: CT Head and Cervical Spine Without Intravenous Contrast CLINICAL HISTORY: The patient is 62 years old and is Female; fall, craniotomy 2 weeks ago TECHNIQUE: Axial computed tomography images of the head/brain and cervical spine without intravenous contrast. Sagittal and coronal reformatted images were created and reviewed. This CT exam was pe rformed using one or more of the following dose reduction techniques: automated exposure control, a djustment of the mA and/or kV according to patient size, and/or use of iterative reconstruction techn ique. COMPARISON: CT of the head October 20, 2022 FINDINGS: BRAIN: Previously demonstrated large cystic mass within the left frontal lobe has been r esected. There is residual heterogeneous 3.4 x 4.2 cm collection with peripheral high attenuation. Juarez rrounding vasogenic edema is present. Mass effect upon the anterior horn of the left lateral ventricl e is present. The staples-white differentiation is otherwise maintained. No intracranial hemorrhage is seen. VENTRICLES: Unremarkable. No ventriculomegaly. SKULL: Evidence of left frontal craniotomy is present. No acute fracture. SINUSES: Unremarkable as visualized. No acute sinusitis. MASTOID AIR CELLS: Unremarkable as visualized. No mastoid effusion. VERTEBRAE: Anterolisthesis of C4 on C5 secondary to degenerative facet arthropathy is present. Th e vertebral body heights and alignment are otherwise maintained. Straightening of the normal cervical curvature is noted which may be secondary to position. DISCS/SPINAL CANAL/NEURAL FORAMINA: There is multi-level intervertebral disc height loss. There a re disc-osteophyte complexes at several levels, with associated mild spinal canal narrowing. There is also facet hypertrophy and uncovertebral joint osteophytosis, with associated multilevel neural fora blake narrowing. SOFT TISSUES: The soft tissues are normal. LUNG APICES: Unremarkable as visualized. IMPRESSION: 1. Postsurgical change of the left frontal lobe with concern for residual mass with as sociated edema and mass effect upon the frontal horn of the left lateral ventricle. Correlation with more recent postoperative exam and/or follow-up with MRI is recommended. 2. Spondylosis of the cervical spine without acute findings. Electronically signed by: Nga Mesa MD 11/06/2022 11:35 PM CDT Due to temporary technical issues with the PACS/Fluency reporting system, reports are being signed by the in house radiologists without review as a courtesy to insure prompt reporting. The interpreting radiologist is fully responsible for the content of the report.
--- NOTE | 2022-11-07 17:58 | RAD REPORT ---
EXAM DESCRIPTION: XR Chest, 1 View CLINICAL HISTORY: The patient is 62 years old and is Female; fall TECHNIQUE: Frontal view of the chest. COMPARISON: No relevant prior studies available. FINDINGS: LUNGS: A calcified granuloma within the right upper lobe is present. The lungs are other aguilar well-inflated and clear. PLEURAL SPACE: Unremarkable. No pneumothorax. HEART: Unremarkable. No cardiomegaly. MEDIASTINUM: Unremarkable. BONES/JOINTS: Multilevel degenerative change of the spine is present. UPPER ABDOMEN: Unremarkable as visualized. IMPRESSION: No acute cardiopulmonary process. Electronically signed by: Nga Mesa MD 11/06/2022 11:27 PM CDT Due to temporary technical issues with the PACS/Fluency reporting system, reports are being signed by the in house radiologists without review as a courtesy to insure prompt reporting. The interpreting radiologist is fully responsible for the content of the report.
--- NOTE | 2022-11-07 17:59 | RAD REPORT ---
EXAM DESCRIPTION: XR Right Knee, 3 Views CLINICAL HISTORY: The patient is 62 years old and is Female; PAIN TECHNIQUE: Three views of the right knee. COMPARISON: No relevant prior studies available. FINDINGS: BONES/JOINTS: Unremarkable. No acute fracture. No dislocation. SOFT TISSUES: Unremarkable. IMPRESSION: Normal right knee radiographs. Electronically signed by: Nga Mesa MD 11/06/2022 11:26 PM CDT Due to temporary technical issues with the PACS/Fluency reporting system, reports are being signed by the in house radiologists without review as a courtesy to insure prompt reporting. The interpreting radiologist is fully responsible for the content of the report.
== END 2022-11-07 05:14 | disposition short-term general hospital (02) ==
LOC: ER 21:50
DX: R47.81 Slurred speech (principal); R26.9 Unspecified abnormalities of gait and mobility; N39.0 Urinary tract infection, site not specified; R51.9 Headache, unspecified; W18.30XA Fall on same level, unspecified, initial encounter; F17.210 Nicotine dependence, cigarettes, uncomplicated; Z85.118 Personal history of other malignant neoplasm of bronchus and lung; Z98.890 Other specified postprocedural states
CPT/HCPCS: 36415; 70450; 71045; 72125; 80048; 81001; 83605; 84484; 85025; 87040; 87086; 87088; 93005; J0696; J7040

== ENCOUNTER 2022-11-13 15:24 | Emergency (ER) | payer OTHER ==
--- OUTSIDE RECORDS SUMMARY | 2022-11-13 15:38 | XMS REPORT | Continuity of Care Document ---
:1960 Author Organization [facility] t Address [address] [place] [id number] Care Team Providers Name Role Phone Pj FLORES Ant Primary Care Physician Devendra COOL, Marielena Tirado Attending Clinician Ken Rousseau MD Attending Clinician Margaret Guillermo MA Attending Clinician Unavailable Lubna COOL, Manuel Attending Clinician Hay COOL, Margaux Attending Clinician Brock COOL, Brandy Saenz Attending Clinician Cj Amaya MD Attending Clinician Guille Hansen MD Attending Clinician Jessica Wilkins CRNA Attending Clinician Bradly COOL, Dima Jimenez Attending Clinician Donta Almendarez MD Attending Clinician Provider, Unknown Attending Clinician Unavailable Colleen Mcelroy RN Attending Clinician Unavailable Magui Chase RN Attending Clinician Unavailable Stephani Marinelli RN Attending Clinician Unavailable Esther Abrams LCSW Attending Clinician Unavailable Juanito OLIVA, Laura Attending Clinician Unavailable Makayla Cuevas RN Attending Clinician Unavailable [facility], Cecil Attending Clinician Unavailable Mckenna LIN, Blanca Attending Clinician Unavailable Margaret Cowan RN Attending Clinician Unavailable Irma Carr RN Attending Clinician Unavailable Emanueltamikhail [facility], Zara Attending Clinician Unavailable Walt OLIVA, Cecilio Miller Attending Clinician Unavailable Ventura Navarrete MD Attending Clinician Frances Kong MD Attending Clinician MD VENTURA NVAARRETE Attending Clinician Unavailable Omega COOL, Vicky Clifton Attending Clinician Renan OLIVA, Artem Attending Clinician Unavailable Blayne COOL, Manuel Mccormack Attending Clinician [phone] Estella Sousa Attending Clinician Unavailable Evgeny Vásquez RN Attending Clinician Unavailable Yanni Godfrey LCSW Attending Clinician Unavailable Sir [facility], Deanna Attending Clinician Unavailable Ezra Banks [facility], Ember Attending Clinician Unavailable Ivonne Saleh MA Attending Clinician Unavailable Petty Prieto RN Attending Clinician Unavailable Adalid COOL, Donta Y.H. Attending Clinician Hugh Damon MD Attending Clinician Lata Chowdary Attending Clinician Unavailable MD DONTA LYNN Y.H. Attending Clinician Unavailable Yelitza Sims MA Attending Clinician Unavailable KEN ROUSSEAU Admitting Clinician Unavailable BRANDY CALVERT Admitting Clinician Unavailable FRANCES KONG Admitting Clinician Unavailable MD VENTURA NAVARRETE Admitting Clinician Unavailable DONTA LYNN Admitting Clinician Unavailable MD DONTA LYNN Y.HMichael Admitting Clinician Unavailable Payers Payer Name Policy Type Policy Number Effective Date Expiration Date S ource Problems Condition Condition Condition Status Onset Resolution Last Treating Co mments Source Name Details Category Date Date Treatment Clinician Date 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 Added automatic ally from request for surgery [id number] Urinary Urinary Disease Active Methodi hesitancy hesitancy [...] Natural father History of cancer [facility] Natural father Lung cancer [facility] Natural mother COPD [facility] Natural mother Diabetes [facility] Natural mother Lung cancer [facility] Social History Social Habit Start Date Stop Date Quantity Comments Source Gender identity 2021-02-21 Identifies as Method ist 13:18:55 female gender Hospital (finding) Sexual orientation 2021-02-21 Heterosexual Meth odist 13:18:55 (finding) Hospital Alcohol intake 2022-11-13 2022-11-13 Ex-drinker [facility] 00:[facility]:00 00:00:00 (finding) Hospital History of Social 2022-11-13 2022-11-[address] function 00:00:00 00:00:00 Hospital Tobacco use and 2022-01-16 2022-01-16 Smokeless tobacco Me [facility]ist exposure 00:00:00 00:00:00 non-user Hospital Cigarettes smoked 2022-01-16 2022-01-[address] current (pack per 00:00:00 00:00:00 Hospita l day) - Reported Cigarette 2022-01-16 2022-01-16 [facility] pack-years 00:00:00 00:00:00 Hospital History of tobacco 2014-07-08 Cigarette Smoker [facility] use 00:00:00 Hospital Sex Assigned At [birth year] F [facility] 00:[facility]:00 Hospital Smoking Status Start Date Stop Date Source Ex-smoker 2022-01-16 00:00:00 2022-01-16 00:00:00 [facility] Medications Ordered Filled Start Stop Current Ordering Indication Dosage Frequency Signature Comments Components Source Medication Medication Date Date Medication? Clinician (SIG) Name Name kerry Yes 650mg Q8H Take 1 Met hodi en ER 6-[address] (Tylenol 15:42: (650 mg Hospit a Arthritis 38 total) by l Pain) 650 mouth MG 8 hr every 8 tablet (eight) hours as needed for mild pain. diclofenac Yes 2g Q.25D Apply 2-4 M ethodi (VOLTAREN) 6-[address] 1 % gel 15:42: topically Hospi ta 38 4 (four) l times a day as needed (Knee pain). albuterol Yes 2{puff} Q6H Inhale 2 M ethodi 90 6-[address] mcg/actuati 15:42: every 6 Hos julian on inhaler 38 (six) l hours as needed for wheezing or shortness of breath. fluticasone Yes QD Take 1 Meth matty -umeclidin- 6-[address] vilanter 15:42: s by mouth Hos julian (TRELEGY 38 daily. l ELLIPTA) 100-62.5-25 mcg blister with device powder for inhalation acetaminoph Yes 650mg Q8H Take 1 Met [...] for wheezing or shortness of breath. fluticasone 0 Yes QD Take 1 Meth matty -umeclidin- 6-[address] vilanter 13:10: s by mouth Hos julian (TRELEGY 02 daily. l ELLIPTA) 100-62.5-25 mcg blister with device powder for inhalation naproxen 0 2022- No 220mg Take 220 Met hodi sodium 6-23 06-[address] (ALEVE 13:10: 00:00 mouth as Hospit a ORAL) 02 :00 needed l (Pain). naproxen 2022-0 2022- No 220mg Take 220 Met [facility] sodium 6-23 06-[address] (ALEVE 13:10: 00:00 mouth as Hospit a ORAL) 02 :00 needed l (Pain). QUEtiapine 2022-0 2022- No 600mg QD Take 2 Met hodi (SEROquel) 6- 06-[address] 300 MG 13:10: 00:00 (600 mg Hospita tablet 40 :00 total) by l mouth nightly. risperiDONE 2022-0 2022- No 6mg QD Take 2 Met hodi (RisperDAL) 6- 06-22 tablets (6 s t 3 MG tablet 13:10: 00:00 mg total) Hospita 40 :00 by mouth l daily. multivitami 2022-0 2022- No 1{tbl} QD Take 1 M ethodi n tablet 10-[address] 13:10: 00:00 mouth Hospita 40 :00 daily. l QUEtiapine 2022-0 2022- No 600mg QD Take 2 Met hodi (SEROquel) -31 10- tablets st 300 MG 13:10: 00:00 (600 [...] mouth Hospita 40 :00 daily. l levETIRAcet 3-0 Yes 500mg Q.5D Take 1 Met hodi am (KEPPRA) -[address] 500 MG 00:00: (500 mg Hospita tablet 00 total) by l mouth 2 (two) times a day. risperiDONE 3-0 Yes 2mg Q.5D Take 1 Meth matty (RisperDAL) -22 tablet (2 st 2 MG tablet 00:00: mg total) H ospita 00 by mouth 2 l (two) times a day. PARoxetine 3-0 Yes 20mg QD Take 1 Metho di (PAXIL) 20 - tablet (20 st MG tablet 00:00: mg total) Hos julian 00 by mouth l every evening. QUEtiapine 3-0 Yes 300mg Q.5D Take 1 Meth matty (SEROquel) 6-[address] 300 MG 00:00: (300 mg Hospita tablet 00 total) by l mouth 2 (two) times a day. levETIRAcet 2023-0 Yes 500mg Q.5D Take 1 Met hodi am (KEPPRA) 6-[address] 500 MG 00:00: (500 mg Hospita tablet 00 total) by l mouth 2 (two) times a day. risperiDONE 2023-0 Yes 2mg Q.5D Take 1 Meth matty (RisperDAL) -22 tablet (2 st 2 MG tablet 00:00: mg total) H ospita 00 by mouth 2 l (two) times a day. PARoxetine 2022-0 Yes 20mg QD Take 1 Metho di (PAXIL) 20 -22 tablet (20 st MG tablet 00:00: mg total) Hos julian 00 by mouth l every evening. QUEtiapine 2022-0 Yes 300mg Q.5D Take 1 Meth matty (SEROquel) -[address] 300 MG 00:00: (300 mg Hospita tablet 00 total) by l mouth 2 (two) times a day. mirtazapine 2022-0 2022- Yes 15mg QD Take 1 Met hodi (REMERON) 10-31-23 tablet (15 st 15 MG 00:00: 04:59 mg total) Hospit a tablet 00 :00 by mouth l nightly for 30 days. mirtazapine 2022-0 2022- Yes 15mg QD Take 1 Met hodi (REMERON) 10-31- tablet (15 st 15 MG 00:00: 04:59 mg total) Hospit a tablet 00 :00 by mouth l nightly for 30 days. dexAMETHaso 2022-0 2022- Yes Take 2 Met hodi ne - 06-30 tablets (2 st (DECADRON) 00:00: 04:59 mg total) H ospita 1 MG tablet 00 :00 by mouth 2 l (two) times a day with meals for 2 days, THEN 1 tablet (1 mg total) 2 (two) times a day with meals for 3 days, THEN 1 tablet (1 mg total) daily with breakfast for 2 days. Then stop. dexAMETHaso 2022-0 2022- No Take 2 Met hodi ne - 06-30 tablets (2 st (DECADRON) 00:00: 04:59 mg total) H ospita 1 MG tablet 00 :00 by mouth 2 l (two) times a day with meals for 2 days, THEN 1 tablet (1 mg total) 2 (two) times a day with meals for 3 days, THEN 1 tablet (1 mg total) daily with breakfast for 2 days. Then stop. BIOTIN ORAL 2022-2022- No 1{tbl} QD Take 1 M ethodi 6-20 06-[address] 11:48: 00:00 mouth Hospita 59 :00 daily. l BIOTIN ORAL 2022-0 3- No 1{tbl} QD Take 1 M ethodi 6-20 06-[address] 11:48: 00:00 mouth Hospita 59 :00 daily. l benztropine 3-0 3- No 1mg Q.5D Take 1 mg Methodi (COGENTIN) 6-20 06-[address] 1 MG tablet 11:48: 00:00 (two) Hosp miranda 49 :00 times a l day. Patient is unsure whether she is taking this medication (verbally stated). benztropine 2022-0 3- No 1mg Q.5D Take 1 mg Methodi (COGENTIN) 6-20 06-[address] 1 MG tablet 11:48: 00:00 (two) Hosp miranda 49 :00 times a l day. Patient is unsure whether she is taking this medication (verbally stated). benztropine 2022-0 Yes 1mg Q.5D Take 1 mg M ethodi (COGENTIN) 2-[address] 1 MG tablet 12:42: (two) Hospi ta 08 times a l day. Patient is unsure whether she is taking this medication (verbally stated). QUEtiapine 2022-0 Yes 300mg Q.5D Take 1 Meth matty (SEROquel) 2-[address] 300 MG 12:42: (300 mg Hospita tablet 08 total) by l mouth 2 (two) times a day. 600mg nightly, 300mg daily risperiDONE 2022-0 Yes 3mg Q.5D Take 1 Meth matty (RisperDAL) 2-21 tablet (3 st 3 MG tablet 12:42: mg total) H ospita 08 by mouth 2 l (two) times a day. multivitami 2022-0 Yes 1{tbl} QD Take 1 Me thodi n tablet 2-[address] 12:42: mouth Hospita 08 daily. l BIOTIN ORAL 2022-0 Yes 1{tbl} QD Take 1 Me thodi 2-[address] 12:42: mouth Hospita 08 daily. l HYDROcodone 2021-05 Yes [id number] 15mL Q6H Take 15 mL Methodi -acetaminop 0-[address] hen (HYCET) 00:00: every 6 Hos julian 2.5-108.3 00 (six) l mg/5 mL hours as solution needed for moderate pain .acute pain, chronic pain. Max Daily Amount: 60 mL HYDROcodone 2021-05 [place] [id number] 15mL Q6H Take 15 mL Methodi -acetaminop 0-20 06-[address] hen (HYCET) 00:00: 00:00 every 6 Ho spita 2.5-108.3 00 :00 (six) l mg/5 mL hours as solution needed for moderate pain .acute pain, chronic pain. Max Daily Amount: 60 mL HYDROcodone 2021-05 No [id number] 15mL Q6H Take 15 mL Methodi -acetaminop [...] :00 by mouth l tablet daily. levothyroxi 2021-05- No 75ug QD Take 1 Met hodi ne 0-06 10-07 tablet (75 st (Synthroid) 00:00: 04:59 mcg total) Hospita 75 mcg 00 :00 by mouth l tablet daily. levothyroxi 2021-05- No 75ug QD Take 1 [...] 300mg Q.5D Take 300 Me thodi (SEROquel) 9- mg by st 300 MG 14:48: mouth 2 Hospita tablet 39 (two) l times a day. 600mg nightly, 300mg daily risperiDONE 0 Yes 3mg Q.5D Take 3 mg M ethodi (RisperDAL) - by mouth 2 st 3 MG tablet 14:48: (two) Hospi ta 39 times a l day. multivitami 0 Yes 1{tbl} QD Take 1 Me thodi n tablet -[address] 14:48: mouth Hospita 39 daily. l BIOTIN ORAL 2021-0 Yes 1{tbl} QD Take 1 Me thodi 9-[address] 14:48: mouth Hospita 39 daily. l fluticasone 0 Yes INHALE ONE Methodi furoate-radha 3-15 (1) [...] fluticasone 2022- No INHALE ONE Methodi furoate-radha 3-20 (1) PUFF st anteroL 00:00: 00:00 BY MOUTH Hospi ta (Breo 00 :00 DAILY. l Ellipta) 100-25 mcg/dose blister with device powder for inhalation fluticasone 2022- No INHALE ONE Methodi furoate-radha 3-15 20 (1) PUFF st anteroL 00:00: 00:00 BY [...] mouth l tablet daily. potassium 2021- No [id number] 20meq Me thodi chloride 05-29 st (K-DUR) CR 16:15: 16:51 Hospit a tablet 20 00 :00 l mEq benadryl/li 2020-05- No 5mL Q6H Swish and Methodi docaine/maa [...] 2020-05 No Take 4 Meth matty (DELTASONE) 05-[address] 10 mg 00:00: 05:59 (40 [...] 2020-05 Yes 8mg Q8H Take 1 Meth amtty (Zofran) 8 1-11 tablet (8 st MG tablet 00:00: mg total) Hos julian 00 by mouth l every 8 (eight) hours as needed for nausea or vomiting. benadryl/li 2020-05- No 5mL Q6H Swish and Methodi docaine/maa 05-[address] lox (MAGIC 00:00: 00:00 every 6 Hos julian MOUTHWASH) 00 :00 (six) l 1:1:1 hours for suspension 30 days. suspension nystatin 2020-05- No [id number] Q.25D Take 5 mL Methodi (MYCOSTATIN 1-10 18 (500,000 st ) 100,000 00:00: 05:59 Units Hospit a unit/mL 00 :00 total) by l suspension mouth 4 (four) times a day for 7 days. Swish in mouth fluticasone 2020-05 No QD Inhale Met hodi -umeclidin- 05-19 11-[address] vilanter 10:12: 00:00 Hospita (TRELEGY 53 :00 l ELLIPTA) 100-62.5-25 mcg blister with device fluticasone 2020-05 No INHALE ONE Methodi furoate-ardha 05-19 03-15 (1) PUFF st anteroL 00:00: [...] tablet 00 :00 by mouth l nightly. mirtazapine 2019-05 30mg QD Take 1 Met hodi (REMERON) [...] daily. Hospit a 00 l PARoxetine 2019-05 60mg QD Take 2 Meth matty (PAXIL) 30 0-02 06-[address] MG tablet 00:00: 00:00 (60 mg Hospi ta 00 :00 total) by l mouth every morning. PARoxetine 2019-05 60mg QD Take 2 Meth matty (PAXIL) 30 0-02 06-[address] MG tablet 00:00: 00:00 (60 mg Hospi ta 00 :00 total) by l mouth every morning. Breo 2019-05 INHALE ONE Method i Ellipta 008 (1) PUFF st 100-25 00:00: 00:00 BY [...] tablet 00 total) by l mouth daily. divalproex 2006-05 Yes Take by Meth matty (DEPAKOTE) 1-[address] 500 MG 24 00:00: Hospita hr tablet 00 l divalproex 2006-05 Yes 1500mg QD Take 3 Met hodi (DEPAKOTE) 1-[address] 500 MG 24 00:00: (1,500 mg Hos julian hr tablet 00 total) by l mouth daily. Vital Signs Vital Name Observation Time Observation Value Comments Source Systolic blood 2022-11-07 16:44:07 115 mm[Hg] [facility] Hospital pressure Diastolic blood 2022-11-07 16:44:07 66 mm[facility]Hg[facility] Heart rate 2022-11-07 16:44:07 101 /min [facility] Body temperature 2022-11-07 16:44:07 36.83 Shira [facility] Respiratory rate 2022-11-07 16:44:07 18 /min [facility] Oxygen saturation in 2022-11-07 16:44:07 95 /min [facility] Arterial blood by Pulse oximetry Systolic blood 2022-10-31 15:58:21 115 mm[Hg] [facility] Hospital pressure Diastolic blood 2022-10-31 15:58:21 79 mm[Hg] [facility] pressure Heart rate 2022-10-31 15:58:21 95 /min [facility] Body temperature 2022-10-31 15:58:21 36.67 Shira [facility] Respiratory rate 2022-10-31 15:58:21 19 /min [facility] Oxygen saturation in 2022-10-31 15:58:21 97 /min [facility] Arterial blood by Pulse oximetry Body height 2022-10-20 23:10:00 152.4 cm [facility] Body weight 2022-10-20 23:10:00 74.5 kg [facility] BMI 2022-10-20 23:10:00 32.08 kg/m2 [facility] Systolic blood 2022-07-18 19:30:00 143 mm[Hg] [facility] Hospital pressure Diastolic blood 2022-07-18 19:30:00 63 mm[Hg] [facility] pressure Heart rate 2022-07-18 19:30:00 103 /min [facility] Body temperature 2022-07-18 19:30:00 36.72 Shira [facility] Respiratory rate 2022-07-18 19:30:00 16 /min [facility] Body height 2022-07-18 19:30:00 152.4 cm [facility] Body weight 2022-07-18 19:30:00 82.555 kg [facility] BMI 2022-07-18 19:30:00 35.54 kg/m2 [facility] Oxygen saturation in 2022-07-18 19:30:00 94 /min [facility] Arterial blood by Pulse oximetry Systolic blood 2022-01-16 19:44:00 124 mm[Hg] [facility] pressure Diastolic blood 2022-01-16 19:44:00 80 mm[Hg] [facility] pressure Heart rate 2022-01-16 19:44:00 86 /min [facility] Body temperature 2022-01-16 19:44:00 36.83 Shira [facility] Respiratory rate 2022-01-16 19:44:00 20 /min [facility] Body height 2022-01-16 19:44:00 152.4 cm [facility] Body weight 2022-01-16 19:44:00 84.55 kg [facility] BMI 2022-01-16 19:44:00 36.40 kg/m2 [facility] Oxygen saturation in 2022-01-16 19:44:00 97 /min [facility] Arterial blood by Pulse oximetry Procedures Procedure Date / Time Performing Clinician Source Performed CT HEAD WO CONTRAST 2022-11-07 13:10:30 Moraima Estes [facility] POC GLUCOSE 2022-10-31 14:52:00 Brandy Calvert [facility] POC GLUCOSE 2022-10-31 13:20:00 Brandy Calvert [facility] POC GLUCOSE 2022-10-31 09:09:00 Brandy Calvert [facility] POC GLUCOSE 2022-10-31 04:46:00 Brandy Calvert [facility] POC GLUCOSE 2022-10-31 01:28:00 Brandy Calvert [facility] ECG 12-LEAD 2022-10-30 19:17:48 Cj Amaya [facility] POC GLUCOSE 2022-10-30 18:02:00 Brandy Calvert [facility] POC GLUCOSE 2022-10-30 14:22:00 Brandy Calvert [facility] POC GLUCOSE 2022-10-30 10:21:00 Brandy Calvert [facility] POC GLUCOSE 2022-10-30 05:49:00 Brandy Calvert [facility] POC GLUCOSE 2022-10-30 02:03:00 Brandy Calvert [facility] DURABLE MEDICAL EQUIPMENT 2022-10-29 21:32:02 DuffLenny taylorlaurita Liriano [facility] POC GLUCOSE 2022-10-29 16:30:00 Brandy Calvert [facility] POC GLUCOSE 2022-10-29 09:57:00 Brandy Calvert [facility] ESTIMATED GFR 2022-10-29 08:48:00 [facility] POC GLUCOSE 2022-10-29 05:11:00 Brandy Calvert [facility] POC GLUCOSE 2022-10-29 00:50:00 Brandy Calvert [facility] POC GLUCOSE 2022-10-28 18:17:00 Brandy Calvert [facility] POC GLUCOSE 2022-10-28 12:40:00 Brandy Calvert [facility] POC GLUCOSE 2022-10-28 09:32:00 Brandy Calvert [facility] BASIC METABOLIC PANEL 2022-10-28 05:16:00 [facility] CBC WITH PLATELET AND 2022-10-28 05:16:00 [facility] DIFFERENTIAL IONIZED CALCIUM 2022-10-28 05:16:00 [facility] MAGNESIUM LEVEL 2022-10-28 05:16:00 [facility] PHOSPHORUS LEVEL 2022-10-28 05:16:00 [facility] ESTIMATED GFR 2022-10-28 05:16:00 [facility] 2022-10-28 05:14:00 Brandy Calvert [facility] POC GLUCOSE 2022-10-28 00:48:00 Brandy Calvert [facility] POC GLUCOSE 2022-10-27 21:05:00 Brandy Calvert [facility] POC GLUCOSE 2022-10-27 16:46:00 Brandy Calvert [facility] POC GLUCOSE 2022-10-27 13:14:00 Brandy Calvert [facility] POC GLUCOSE 2022-10-27 08:38:00 Brandy Calvert [facility] POC GLUCOSE 2022-10-27 08:30:00 Brandy Calvert [facility] CT HEAD WO CONTRAST 2022-10-27 08:19:00 Chau Montenegro [facility] BASIC METABOLIC PANEL 2022-10-27 05:32:00 [facility] CBC WITH PLATELET AND 2022-10-27 05:32:00 [facility] DIFFERENTIAL IONIZED CALCIUM 2022-10-27 05:32:00 [facility] MAGNESIUM LEVEL 2022-10-27 05:32:00 [facility] PHOSPHORUS LEVEL 2022-10-27 05:32:00 [facility] ESTIMATED GFR 2022-10-27 05:32:00 Tabatha Jarrett [facility] POC GLUCOSE 2022-10-27 04:42:00 Brandy Calvert [facility] POC GLUCOSE 2022-10-27 03:40:00 Brandy Calvert [facility] POC GLUCOSE 2022-10-27 00:55:00 Brandy Calvert [facility] POC GLUCOSE 2022-10-26 20:54:00 Brandy Calvert [facility] POC GLUCOSE 2022-10-26 17:06:00 Brandy Calvert [facility] XR CHEST 1 VW PORTABLE 2022-10-26 13:56:32 Tabatha Jarrett [facility] CBC WITH PLATELET AND 2022-10-26 12:57:00 Tabatha Jarrett Sh[facility] DIFFERENTIAL POC GLUCOSE 2022-10-26 12:35:00 Brandy Calvert [facility] POC GLUCOSE 2022-10-26 09:23:00 Brandy Calvert [facility] CT HEAD WO CONTRAST 2022-10-26 08:52:20 Co, [facility] BASIC METABOLIC PANEL 2022-10-26 05:12:00 Kian [facility] CBC WITH PLATELET AND 2022-10-26 05:12[facility] IONIZED CALCIUM 2022-10-26 05:12:00 Raudel Langston Ho spital anbena MAGNESIUM LEVEL 2022-10-26 05:12:00 Raudel Langston Ho spital anbena PHOSPHORUS LEVEL 2022-10-26 05:12:00 [facility] 2022-10-26 05:12:00 Brandy Calvert [facility] POC GLUCOSE 2022-10-26 04:41:00 Brandy Calvert [facility] ECG 12-LEAD 2022-10-26 04:22:32 [facility] 2022-10-26 01:24:00 Brandy Calvert [facility] POC GLUCOSE 2022-10-25 21:08:00 Brandy Calvert [facility] POC GLUCOSE 2022-10-25 17:09:00 BrockBarndy simon [facility] MRI BRAIN W WO CONTRAST 2022-10-25 15:05:00 Kian [facility] POC GLUCOSE 2022-10-25 13:05:00 Brandy Calvert [facility] XR CHEST 1 VW PORTABLE 2022-10-25 10:53:[facility] 2022-10-25 09:33:00 Brandy Calvert [facility] ECG 12-LEAD 2022-10-25 07:43:30 Deanna Vargas [facility] CBC WITH PLATELET AND 2022-10-25 05:30:00 Kian [facility]ENTIAL [facility] ART[facility] BLOOD GAS 2022-10-25 05:30:00 Deanna Vargas [facility] IONIZED CALCIUM, ARTERIAL 2022-10-25 05:30:[address] [facility] BASIC METABOLIC PANEL 2022-10-25 05:29:00 Kian [facility] [place] MAGNESIUM LEVEL 2022-10-25 05:29:00 Kian Raudel [facility] spital [place] PHOSPHORUS LEVEL 2022-10-25 05:29:00 Kian [facility] ospital [place] ESTIMATED GFR 2022-10-25 05:29:00 Brandy Calvert [facility] POC GLUCOSE 2022-10-25 05:27:00 Brandy Calvert [facility] POC GLUCOSE 2022-10-25 01:16:00 BrockBrandy [facility] XR ABDOMEN 1 VW PORTABLE 2022-10-25 00:22:27 Co, [facility] XR CHEST 1 VW PORTABLE 2022-10-25 00:22:13 Co, [facility] ARTERIAL BLOOD GAS 2022-10-24 23:38:00 Co, [facility] BASIC METABOLIC PANEL 2022-10-24 23:38:00 Co, [facility] MAGNESIUM LEVEL 2022-10-24 23:38:00 Co, [facility] spital PHOSPHORUS LEVEL 2022-10-24 23:38:00 Co, [facility] ospital LACTIC ACID LEVEL 2022-10-24 23:38:00 Co, [facility] CBC WITH PLATELET AND 2022-10-24 23:38:00 Co, [facility] DIFFERENTIAL IONIZED CALCIUM, ARTERIAL 2022-10-24 23:38:00 Co, [facility] ESTIMATED GFR 2022-10-24 23:38:00 Co, [facility] spital CT HEAD WO CONTRAST 2022-10-24 22:58:43 [facility] [place] SURGICAL PATHOLOGY 2022-10-24 21:39:00 Brandy Calvert [facility] REQUEST ARTERIAL LINE 2022-10-24 20:06:23 [facility] 2022-10-24 19:48:10 Guille Hansen [facility]ital NM AN ELECTIVE 2022-10-24 19:01:00 [facility] ENDOTRACHEAL AIRWAY CRANIOTOMY 2022-10-24 18:45:[address] [facility] TRANSFUSE PLATELET 2022-10-24 10:00:00 Barry [facility] PHERESIS Marely ARTERIAL BLOOD GAS 2022-10-24 05:19:00 [facility]ON[facility]ED CALCIUM, ARTERIAL 2022-10-24 05:19:00 Tabatha Jarrett [facility] TYPE AND SCREEN 2022-10-24 05:18:00 [facility] BASIC METABOLIC PANEL 2022-10-24 05:18:00 Kian [facility] [place] CBC WITH PLATELET AND 2022-10-24 05:18:00 Kian [facility] DIFFERENTIAL [place] MAGNESIUM LEVEL 2022-10-24 05:18:00 Raudel Langston spital [place] PHOSPHORUS LEVEL 2022-10-24 05:18:00 Raudel Langston ospital [place] ESTIMATED GFR 2022-10-24 05:18:00 Tabatha Jarrett Sharda [facility] PREPARE PLATELET PHERESIS 2022-10-24 05:18:00 [facility] POC GLUCOSE 2022-10-24 00:54:00 Brandy Calvert [facility] BASIC METABOLIC PANEL 2022-10-23 05:26:00 Tabatha Jarrett [facility] CBC WITH PLATELET AND 2022-10-23 05:26:[address] [facility] DIFFERENTIAL IONIZED CALCIUM 2022-10-23 05:26:00 [facility] MAGNESIUM LEVEL 2022-10-23 05:26:00 Luiza [facility] PHOSPHORUS LEVEL 2022-10-23 05:26:00 [facility]FR 2022-10-23 05:26:00 [facility] POC GLUCOSE 2022-10-22 21:33:00 Brandy Calvert [facility] AMMONIA LEVEL 2022-10-22 19:03:00 Cj Amaya [facility] VALPROIC ACID LEVEL 2022-10-22 19:03:00 Cj Amaya [facility] CT HEAD WO CONTRAST 2022-10-22 18:22:30 Chau Montenegro [facility] UNMONITORED VIDEO-EEG 12 2022-10-22 18:09:01 Raegan Sargent [facility] HRS [id number] ong POC GLUCOSE 2022-10-22 16:28:00 Brandy Calvert [facility] POC GLUCOSE 2022-10-22 13:29:00 Brandy Calvert [facility] POC GLUCOSE 2022-10-22 08:24:00 Brandy Calvert [facility] MAGNESIUM LEVEL 2022-10-22 06:04:00 Tabatha Jarrett [facility] PHOSPHORUS LEVEL 2022-10-22 06:04:00 Tabatha Jarrett [facility] IONIZED CALCIUM 2022-10-22 06:04:00 Tabatha Jarrett [facility] BASIC METABOLIC PANEL 2022-10-22 06:04:00 Tabatha Jarrett Sharda [facility] CBC WITH PLATELET AND 2022-10-22 06:04:00 Tabatha Jarrett [facility] DIFFERENTIAL ESTIMATED GFR 2022-10-22 06:04:00 Tabatha Jarrett [facility] EEG SETUP 2022-10-22 05:32:23 Raegan Sargent [facility] Liong POC GLUCOSE 2022-10-22 04:32:00 Brandy Calvert [facility] POC GLUCOSE 2022-10-22 00:33:00 Brandy Calvert [facility] PARTIAL THROMBOPLASTIN 2022-10-21 23:53:00 Chau Montenegro [facility] TIME (PTT) PROTHROMBIN TIME WITH INR 2022-10-21 23:53:[address] [facility] MRI BRAIN W WO CONTRAST 2022-10-21 23:32:00 Chau Montenegro Carlton [facility] POC GLUCOSE 2022-10-21 21:14:00 Brandy Calvert [facility] EEG (ROUTINE) 2022-10-21 17:43:[address] [facility] Liong POC GLUCOSE 2022-10-21 16:55:00 Brandy Calvert [facility] CT CHEST W CONTRAST 2022-10-21 15:23:[facility] PELVIS W CONTRAST POC GLUCOSE 2022-10-21 12:44:00 Brandy Calvert [facility] ECG 12-LEAD 2022-10-21 11:42:[address] [facility] Liong POC GLUCOSE 2022-10-21 09:54:00 Brandy Calvert [facility] CBC WITH PLATELET AND 2022-10-21 05:28:00 Guido [facility] DIFFERENTIAL COMPREHENSIVE METABOLIC 2022-10-21 05:28:00 [facility] PANEL ESTIMATED GFR 2022-10-21 05:28:00 Margaux Guidoist Ho spital SMEAR REVIEW 2022-10-21 05:28:00 Margaux Guido [facility] spital POC GLUCOSE 2022-10-21 04:46:00 Brandy Calvert [facility] CT HEAD WO CONTRAST 2022-10-21 03:39:00 [facility] 2022-10-21 01:09:00 [facility] CBC WITH PLATELET AND 2022-10-21 01:01:00 Raegan Sargent [facility] DIFFERENTIAL [facility] COMPREHENSIVE METABOLIC 2022-10-21 01:01:00 Raegan Sargent [facility] PANEL Liong MAGNESIUM LEVEL 2022-10-21 01:01:00 [facility] PHOSPHORUS LEVEL 2022-10-21 01:01:00 [facility] IONIZED CALCIUM 2022-10-21 01:01:00 [facility] TYPE AND SCREEN 2022-10-21 01:01:00 [facility] ESTIMATED GFR 2022-10-21 01:01:00 [facility] POC GLUCOSE 2022-10-20 23:10:00 Margaux Guido [facility]ital RAD ONC DAILY TREATMENT 2022-07-26 15:22:25 Provider, Unknown [facility] RAD ONC DAILY TREATMENT 2022-07-24 18:21:01 Provider, Unknown [facility] RAD ONC DAILY TREATMENT 2022-07-22 18:26:14 Provider, Unknown [facility] RAD ONC DAILY TREATMENT 2022-07-18 19:49:09 Provider, Unknown [facility] MRI ABDOMEN W WO CONTRAST 2022-07-16 22:30:[address] [facility] RAD ONC DAILY TREATMENT 2022-07-16 20:40:34 Provider, [facility] CERVICAL SPINE W WO 2022-06-17 17:20:00 Manuel Calvo [facility] CONTRAST MRI BRAIN W CONTRAST 2022-06-17 17:15:00 Manuel Calvo [facility] PET CT SKULL BASE TO MID 2022-05-28 18:51:40 Manuel Calvo [facility] THIGH CBC WITH PLATELET AND 2022-05-28 18:04:00 Manuel Calvo [facility] DIFFERENTIAL COMPREHENSIVE METABOLIC 2022-05-28 18:04:00 Manuel Calvo [facility] PANEL MAGNESIUM LEVEL 2022-05-28 18:04:00 Manuel Calvo [facility]ital THYROID STIMULATING 2022-05-28 18:04:00 [facility] 2022-05-28 18:04:00 Manuel Calvo spital T4, FREE 2022-05-28 18:04:00 Manuel Calvo spital ESTIMATED GFR 2022-05-28 18:04:00 [facility] MANUAL DIFFERENTIAL 2022-05-28 18:04:00 Manuel Clavo [facility] POC GLUCOSE 2022-05-28 16:26:00 Manuel Calvoist Ho spital CBC WITH PLATELET AND 2022-05-01 17:53:00 Manuel Calvo [facility] DIFFERENTIAL COMPREHENSIVE METABOLIC 2022-05-01 17:53:00 Manuel Calvo [facility] PANEL MAGNESIUM LEVEL 2022-05-01 17:53:00 [facility] THYROID STIMULATING 2022-05-01 17:53:00 Manuel Calvo [facility] HORMONE T3 2022-05-01 17:53:00 Manuel Calvo [facility] spital T4, FREE 2022-05-01 17:53:00 [facility] ESTIMATED GFR 2022-05-01 17:53:00 [facility] CBC WITH PLATELET AND 2022-04-02 17:48:00 Manuel Calvo [facility] DIFFERENTIAL COMPREHENSIVE METABOLIC 2022-04-02 17:48:00 Manuel Calvo [facility] PANEL MAGNESIUM LEVEL 2022-04-02 17:48:00 [facility] THYROID STIMULATING 2022-04-02 17:48:00 Manuel Calvo [facility] HORMONE T3 2022-04-02 17:48:00 Manuel Calvo [facility] spital T4, FREE 2022-04-02 17:48:00 [facility] ESTIMATED GFR 2022-04-02 17:48:00 [facility] MANUAL DIFFERENTIAL 2022-04-02 17:48:00 Manuel Calvo [facility] RAD ONC COURSE SUMMARY 2022-03-20 14:20:15 Provider, Unknown [facility] RAD ONC DAILY TREATMENT 2022-03-18 20:08:59 Provider, Unknown [facility] RAD ONC DAILY TREATMENT 2022-03-15 17:27:33 Provider, Unknown [facility] RAD ONC DAILY TREATMENT 2022-03-14 18:20:49 Provider, Unknown [facility] RAD ONC DAILY TREATMENT 2022-03-13 18:51:26 Provider, Unknown [facility] RAD ONC DAILY TREATMENT 2022-03-12 18:43:10 Provider, Unknown [facility] RAD ONC DAILY TREATMENT 2022-03-11 20:31:22 Provider, Unknown [facility] RAD ONC DAILY TREATMENT 2022-03-08 17:08:15 Provider, Unknown [facility] MRI BRAIN W WO CONTRAST 2022-03-08 16:08:00 Marielena Ramsay [facility] RAD ONC DAILY TREATMENT 2022-03-07 20:03:00 Provider, Unknown [facility] CBC WITH PLATELET AND 2022-03-06 19:42:00 Manuel Calvo [facility] DIFFERENTIAL COMPREHENSIVE METABOLIC 2022-03-06 19:42:00 Manuel Calvo [facility] PANEL MAGNESIUM LEVEL 2022-03-06 19:42:00 Manuel Calvo [facility] spital THYROID STIMULATING 2022-03-06 19:42:00 Lubna [facility] HORMONE T3 2022-03-06 19:42:00 Manuel Calvo [facility] spital T4, FREE 2022-03-06 19:42:00 Manuel Calvo [facility] spital ESTIMATED GFR 2022-03-06 19:42:00 Manuel Calvo [facility] spital MANUAL DIFFERENTIAL 2022-03-06 19:42:00 Lubna [facility] RAD ONC DAILY TREATMENT 2022-03-06 18:57:31 Provider, Unknown [facility] RAD ONC DAILY TREATMENT 2022-03-05 19:29:30 Provider, Unknown [facility] RAD ONC DAILY TREATMENT 2022-03-04 18:24:12 Provider, Unknown [facility] RAD ONC DAILY TREATMENT 2022-03-01 19:46:04 Provider, Unknown [facility] RAD ONC DAILY TREATMENT 2022-02-28 20:13:22 Provider, Unknown [facility] RAD ONC DAILY TREATMENT 2022-02-27 20:28:42 Provider, Unknown [facility] RAD ONC DAILY TREATMENT 2022-02-26 20:36:08 Provider, Unknown [facility] RAD ONC DAILY TREATMENT 2022-02-25 19:36:27 Provider, Unknown [facility] RAD ONC DAILY TREATMENT 2022-02-22 20:26:13 Provider, Unknown [facility] RAD ONC DAILY TREATMENT 2022-02-21 20:31:32 Provider, Unknown [facility] RAD ONC DAILY TREATMENT 2022-02-20 20:27:20 Provider, Unknown [facility] RAD ONC DAILY TREATMENT 2022-02-19 22:25:50 Provider, Unknown [facility] RAD ONC DAILY TREATMENT 2022-02-18 20:27:27 Provider, Unknown [facility] RAD ONC DAILY TREATMENT 2022-02-15 20:09:22 Provider, Unknown [facility] RAD ONC DAILY TREATMENT 2022-02-14 20:31:50 Provider, Unknown [facility] RAD ONC DAILY TREATMENT 2022-02-13 18:38:55 Provider, Unknown [facility] RAD ONC DAILY TREATMENT 2022-02-12 20:16:34 Provider, Unknown [facility] RAD ONC DAILY TREATMENT 2022-02-11 18:34:11 Provider, Unknown [facility] RAD ONC DAILY TREATMENT 2022-02-08 20:19:58 Provider, Unknown [facility] RAD ONC DAILY TREATMENT 2022-02-07 20:02:52 Provider, Unknown [facility] RAD ONC DAILY TREATMENT 2022-02-06 21:37:52 Provider, Unknown [facility] RAD ONC DAILY TREATMENT 2022-02-05 21:43:41 Provider, Unknown [facility] CBC WITH PLATELET AND 2022-02-05 17:16:00 Manuel Calvo [facility] DIFFERENTIAL COMPREHENSIVE METABOLIC 2022-02-05 17:16:00 Manuel Calvo [facility] PANEL MAGNESIUM LEVEL 2022-02-05 17:16:00 [facility] THYROID STIMULATING 2022-02-05 17:16:00 Manuel Calvo [facility] HORMONE T3 2022-02-05 17:16:00 [facility] T4, FREE 2022-02-05 17:16:00 [facility] ESTIMATED GFR 2022-02-05 17:16:00 [facility] MANUAL DIFFERENTIAL 2022-02-05 17:16:00 [facility] Manuel [facility] RAD ONC COURSE SUMMARY 2022-01-23 16:59:07 Provider, Unknown [facility] PET CT SKULL BASE TO MID 2022-01-08 14:36:07 Manuel Calvo [facility] THIGH CBC WITH PLATELET AND 2022-01-08 14:36:00 Manuel Calvo [facility] DIFFERENTIAL COMPREHENSIVE METABOLIC 2022-01-08 14:36:00 Manuel Calvo [facility] PANEL MAGNESIUM LEVEL 2022-01-08 14:36:00 Manuel Calvoist Ho spital THYROID STIMULATING 2022-01-08 14:36:00 Manuel Calvo [facility] HORMONE T3, FREE 2022-01-08 14:36:00 Manuel Calvoist Ho spital T4, FREE 2022-01-08 14:36:00 Manuel Calvoist Ho spital ESTIMATED GFR 2022-01-08 14:36:00 Manuel Calvoist Ho spital T3 2022-01-08 14:36:00 Manuel Calvo [facility]ital ESTIMATED GFR 2022-01-08 14:20:00 Manuel Calvoist Ho spital POC GLUCOSE 2022-01-08 12:53:00 Manuel Calvoist Ho spital CBC WITH PLATELET AND 2021-12-11 14:36:00 Manuel Calvo [facility] DIFFERENTIAL COMPREHENSIVE METABOLIC 2021-12-11 14:36:00 Manuel Calvo [facility] PANEL MAGNESIUM LEVEL 2021-12-11 14:36:00 Manuel Calvoist Ho spital THYROID STIMULATING 2021-12-11 14:36:00 Manuel Calvo [facility] HORMONE T3 2021-12-11 14:36:00 Manuel Calvoist Ho spital T4, FREE 2021-12-11 14:36:00 Manuel Calvoist Ho spital ESTIMATED GFR 2021-12-11 14:36:00 Manuel Calvoist Ho spital CT CHEST W CONTRAST 2021-11-13 18:58:59 Manuel Calvo [facility] CBC WITH PLATELET AND 2021-11-13 16:36:00 Manuel Calvo [facility] DIFFERENTIAL CBC WITH PLATELET AND 2021-11-13 16:36:00 Manuel Calvo [facility] DIFFERENTIAL COMPREHENSIVE METABOLIC 2021-11-13 16:36:00 Manuel Calvo [facility] PANEL MAGNESIUM LEVEL 2021-11-13 16:36:00 Manuel Calvoist Ho spital THYROID STIMULATING 2021-11-13 16:36:00 Manuel Calvo [facility] HORMONE T3 2021-11-13 16:36:00 Manuel Calvoist [facility] spital T4, FREE 2021-11-13 16:36:00 [facility] ESTIM[facility] GFR 2021-11-13 16:36:00 [facility] MANUAL DIFFERENTIAL 2021-11-13 16:36:00 [place] [facility] CBC WITH PLATELET AND 2021-10-16 14:26:00 Manuel Calvo [facility] DIFFERENTIAL COMPREHENSIVE METABOLIC 2021-10-16 14:26:00 Manuel Calvo [facility] PANEL MAGNESIUM LEVEL 2021-10-16 14:26:00 Manuel Calvoist Ho spital THYROID STIMULATING 2021-10-16 14:26:00 [place] [facility] HORMONE T3 2021-10-16 14:26:00 Manuel Calvoist [facility] spital T4, FREE 2021-10-16 14:26:00 Manuel Calvoist [facility] spital ESTIMATED GFR 2021-10-16 14:26:00 Manuel Calvoist Ho spital MANUAL DIFFERENTIAL 2021-10-16 14:26:00 Manuel Calvo [facility] CBC WITH PLATELET AND 2021-09-18 14:10:00 Manuel Calvo [facility] DIFFERENTIAL COMPREHENSIVE METABOLIC 2021-09-18 14:10:00 Manuel Calvo [facility] PANEL MAGNESIUM LEVEL 2021-09-18 14:10:00 Manuel Calvoist Ho spital THYROID STIMULATING 2021-09-18 14:10:00 Manuel Calvo [facility] HORMONE T3 2021-09-18 14:10:00 Manuel Calvoist [facility] spital T4, FREE 2021-09-18 14:10:00 Manuel Calvo [facility]ital ESTIMATED GFR 2021-09-18 14:10:00 [facility] MANUAL DIFFERENTIAL 2021-09-18 14:10:00 Manuel Calvo [facility] HC COMPLETE BLD COUNT 2021-08-21 14:01:00 Manuel Calvo [facility] W/AUTO DIFF COMPREHENSIVE METABOLIC 2021-08-21 14:01:00 Manuel Calvo [facility] PANEL MAGNESIUM LEVEL 2021-08-21 14:01:00 Manuel Calvoist Ho spital THYROID STIMULATING 2021-08-21 14:01:00 [facility] H[facility] T[facility] 2021-08-21 14:01:00 Manuel Calvo Ho spital T4, FREE 2021-08-21 14:01:00 Manuel Calvo [facility] spital ESTIMATED GFR 2021-08-21 14:01:00 Manuel Calvo [facility] MRI BRAIN W WO CONTRAST 2021-08-17 17:05:13 Manuel Calvo [facility] PET CT SKULL BASE TO MID 2021-08-17 16:18:00 Manuel Calvo [facility] THIGH POC GLUCOSE 2021-08-17 14:39:00 Manuel Calvo [facility] HC COMPLETE BLD COUNT 2021-07-24 15:06:00 Manuel Calvo [facility] W/AUTO DIFF COMPREHENSIVE METABOLIC 2021-07-24 15:06:00 Manuel Calvo [facility] PANEL MAGNESIUM LEVEL 2021-07-24 15:06:00 Manuel Calvo [facility] spital THYROID STIMULATING 2021-07-24 15:06:00 Manuel Calvo [facility] HORMONE T3 2021-07-24 15:06:00 Manuel Calvo [facility]ital T4, FREE 2021-07-24 15:06:00 Manuel Calvo [facility] spital ESTIMATED GFR 2021-07-24 15:06:00 Manuel Calvo [facility] HC COMPLETE BLD COUNT 2021-06-26 15:57:00 Manuel Calvo [facility] W/AUTO DIFF COMPREHENSIVE METABOLIC 2021-06-26 15:57:00 Manuel Calvo [facility] PANEL MAGNESIUM LEVEL 2021-06-26 15:57:00 Manuel Calvo Ho spital THYROID STIMULATING 2021-06-26 15:57:00 Manuel Calvo [facility] HORMONE T3 2021-06-26 15:57:00 Manuel Calvo [facility]ital T4, FREE 2021-06-26 15:57:00 Manuel Calvo [facility] spital ESTIMATED GFR 2021-06-26 15:57:00 Manuel Calvo spital CBC WITH PLATELET AND 2021-05-29 13:57:00 Manuel Calvo [facility] DIFFERENTIAL COMPREHENSIVE METABOLIC 2021-05-29 13:57:00 Manuel Calvo [facility] PANEL MAGNESIUM LEVEL 2021-05-29 13:57:00 Manuel Calvo Ho spital THYROID STIMULATING 2021-05-29 13:57[facility]00 [facility] 2021-05-29 13:57:00 Manuel Calvo [facility] spital T4, FREE 2021-05-29 13:57:00 [place] [facility] spital ESTIMATED GFR 2021-05-29 13:57:00 Manuel Calvo [facility] spital MANUAL DIFFERENTIAL 2021-05-29 13:57[facility] [facility] 2021-05-22 17:14:16 [facility]RSE [facility] 2021-04-27 19:56:56 Provider, Unknown [facility] HC COMPLETE BLD COUNT 2021-04-24 14:32:00 [facility] [facility] W/AUTO DIFF COMPREHENSIVE METABOLIC 2021-04-24 14:32:00 Lubna [facility] PANEL MAGNESIUM LEVEL 2021-04-24 14:32:00 [facility] ESTIM[facility] GFR 2021-04-24 14:32:00 Manuel Calvo [facility] spital RAD ONC DAILY TREATMENT 2021-04-24 13:24:35 Provider, Unknown [facility] RAD ONC DAILY TREATMENT 2021-04-23 16:45:25 Provider, Unknown [facility] RAD ONC DAILY TREATMENT 2021-04-20 16:45:46 Provider, Unknown [facility] RAD ONC DAILY TREATMENT 2021-04-19 17:14:34 Provider, Unknown [facility] RAD ONC DAILY TREATMENT 2021-04-18 17:29:35 Provider, Unknown [facility] HC COMPLETE BLD COUNT 2021-04-17 14:02:00 Manuel Calvo [facility] W/AUTO DIFF COMPREHENSIVE METABOLIC 2021-04-17 14:02:00 Lubna [facility] PANEL ESTIMATED GFR 2021-04-17 14:02:00 [facility] MAGNESIUM LEVEL 2021-04-17 14:02:00 [place] [facility] spital RAD ONC DAILY TREATMENT 2021-04-17 13:11:43 Provider, Unknown [facility] RAD ONC DAILY TREATMENT 2021-04-16 16:51:36 Provider, Unknown [facility] RAD ONC DAILY TREATMENT 2021-04-13 17:37:41 Provider, Unknown [facility] RAD ONC DAILY TREATMENT 2021-04-12 17:27:38 Provider, Unknown [facility] RAD ONC DAILY TREATMENT 2021-04-11 17:41:13 Provider, Unknown [facility] HC COMPLETE BLD COUNT 2021-04-10 17:09:00 Manuel Calvo [facility] W/AUTO DIFF COMPREHENSIVE METABOLIC 2021-04-10 17:09:00 Manuel Calvo [facility] PANEL MAGNESIUM LEVEL 2021-04-10 17:09:00 Manuel Calvoist Ho spital ESTIMATED GFR 2021-04-10 17:09:00 Manuel Calvoist Ho spital RAD ONC DAILY TREATMENT 2021-04-10 16:18:41 Provider, Unknown [facility] RAD ONC DAILY TREATMENT 2021-04-09 17:12:42 Provider, Unknown [facility] RAD ONC DAILY TREATMENT 2021-04-04 16:46:28 Provider, Unknown [facility] RAD ONC DAILY TREATMENT 2021-04-03 16:52:47 Provider, Unknown [facility] CBC WITH PLATELET AND 2021-04-02 14:42:00 Manuel Calvo [facility] DIFFERENTIAL COMPREHENSIVE METABOLIC 2021-04-02 14:42:00 Manuel Calvo [facility] PANEL MAGNESIUM LEVEL 2021-04-02 14:42:00 Manuel Calvoist Ho spital ESTIMATED GFR 2021-04-02 14:42:00 [facility]UAL [facility]FFERENTIAL 2021-04-02 14:42:00 Manuel Calvo [facility] RAD ONC DAILY TREATMENT 2021-04-02 13:51:59 Provider, Unknown [facility] RAD ONC DAILY TREATMENT 2021-03-30 16:51:51 Provider, Unknown [facility] RAD ONC DAILY TREATMENT 2021-03-29 17:12:14 Provider, Unknown [facility] RAD ONC DAILY TREATMENT 2021-03-28 16:14:16 Provider, Unknown [facility] RAD ONC DAILY TREATMENT 2021-03-27 21:51:17 Provider, Unknown [facility] COVID-19 ANTI-SPIKE IGG 2021-03-27 10:00:00 Ventura Navarrete [facility] ANTIBODY TITER COVID-19 SEROLOGY PATIENT 2021-03-27 10:00:00 [facility] COMPLETE BLD COUNT 2021-03-27 09:31:00 [facility] W/AUTO DIFF BASIC METABOLIC PANEL 2021-03-27 09:31:00 [facility] MAGNESIUM LEVEL 2021-03-27 09:31:00 [facility] ospital PHOSPHORUS LEVEL 2021-03-27 09:31:00 [facility] HEPATIC FUNCTION PANEL 2021-03-27 09:31:00 [facility] URIC ACID LEVEL 2021-03-27 09:31:00 [facility] ospital LDH 2021-03-27 09:31:00 [facility] ospital ESTIMATED GFR 2021-03-27 09:31:[address] [facility] osp[facility] CT CHEST WO CONTRAST 2021-03-27 03:19:25 [facility] COVID-19 QUALITATIVE 2021-03-27 02:00:00 [place] Manuel [facility] RT-PCR ECG 12-LEAD 2021-03-27 01:39:50 [facility] ospital CBC WITH PLATELET AND 2021-03-26 16:01:00 Manuel Calvo [facility] DIFFERENTIAL COMPREHENSIVE METABOLIC 2021-03-26 16:01:00 Manuel Calvo [facility] PANEL MAGNESIUM LEVEL 2021-03-26 16:01:00 Manuel Calvo [facility] spital ESTIMATED GFR 2021-03-26 16:01:00 Manuel Calvo [facility] spital MANUAL DIFFERENTIAL 2021-03-26 16:01[facility]00 [facility] 2021-03-26 14:12:43 Provider, Unknown [facility] HC COMPLETE BLD COUNT 2021-03-19 14:23:00 Manuel Calvo [facility] W/AUTO DIFF COMPREHENSIVE METABOLIC 2021-03-19 14:23:00 Manuel Calvo [facility] PANEL MAGNESIUM LEVEL 2021-03-19 14:23:00 Manuel Calvo Ho spital ESTIMATED GFR 2021-03-19 14:23:00 Manuel Calvoist Ho spital HC COMPLETE BLD COUNT 2021-03-12 16:45:00 [place] [facility] W/AUTO DIFF COMPREHENSIVE METABOLIC 2021-03-12 16:45:00 [place] [facility] PANEL MAGNESIUM LEVEL 2021-03-12 16:45:00 Manuel Calvoist Ho spital ESTIMATED GFR 2021-03-12 16:45:00 Manuel Calvoist Ho spital HC COMPLETE BLD COUNT 2021-03-05 13:00:00 [place] [facility] W/AUTO DIFF COMPREHENSIVE METABOLIC 2021-03-05 13:00:00 [place] [facility] PANEL MAGNESIUM LEVEL 2021-03-05 13:00:00 Manuel Calvoist Ho spital ESTIMATED GFR 2021-03-05 13:00:00 Manuel Calvoist Ho spital MRI BRAIN W WO CONTRAST 2021-02-22 13:35:[facility] 2021-02-07 16:11:00 [place] [facility] ABDOMEN W CONTRAST PELVIS W CONTRAST XR CHEST 1 VW PORTABLE 2021-01-29 20:03:00 Marta Salas [facility] CYTOLOGY 2021-01-29 19:18:[address] [facility] (NON-GYNECOLOGICAL) REQUEST CYTOLOGY 2021-01-29 19:01:[address] [facility] (NON-GYNECOLOGICAL) REQUEST NM AN ELECTIVE 2021-01-29 18:34:31 Hugh Damon ospital ENDOTRACHEAL AIRWAY BRONCHOSCOPY 2021-01-29 18:05:[address] [facility] US, ENDOBRONCHIAL 2021-01-29 18:05:00 Donta Lynn [facility] ABO AND RH CONFIRMATION 2021-01-29 15:18:00 Donta Lynn [facility] BY PROTOCOL COVID-19 QUALITATIVE 2021-01-25 16:57:00 Donta Lynn [facility] RT-PCR TYPE AND SCREEN 2021-01-25 16:57:[address] [facility] PROTHROMBIN TIME WITH INR 2021-01-25 16:57:[address] [facility] PARTIAL THROMBOPLASTIN 2021-01-25 16:57:00 Donta Lynn [facility] TIME (PTT) COMPREHENSIVE METABOLIC 2021-01-25 16:57:00 Donta Lynn [facility] PANEL HC COMPLETE BLD COUNT 2021-01-25 16:57:00 Donta Lynn [facility] W/AUTO DIFF ESTIMATED GFR 2021-01-25 16:57:[address] [facility] ECG 12-LEAD 2021-01-25 16:45:[address] [facility] Plan of Care Planned Activity Planned Date Details Comments Source Future Scheduled 2022-11-[address] [facility] Test 07:50:54 malignant neoplasm of colon (procedure) [code = 349128588] Future Scheduled 2022-11-[address] [facility] Test 07:50:54 malignant neoplasm of colon (procedure) [code = 389884052] Future Scheduled 2022-11-[address] [facility] Test 07:50:54 malignant neoplasm of colon (procedure) [code = 734402045] Future Scheduled 2022-11-13 Pneumococcal Vaccine: [facility] Test 07:50:54 Pediatrics (0 to 5 Years) and At-Risk Patients (6 to 64 Years) (1 - PCV) [code = Pneumococcal Vaccine: Pediatrics (0 to 5 Years) and At-Risk Patients (6 to 64 Years) (1 - PCV)] Future Scheduled 2022-11-13 SHINGLES VACCINES (1 Met [facility] Test 07:50:54 of 2) [code = SHINGLES VACCINES (1 of 2)] Future Scheduled 2022-11-[address] [facility] Test 07:50:54 malignant neoplasm of cervix (procedure) [code = 292801298] Future Scheduled 2022-11-[address] [facility] Test 07:50:54 SCREENING [code = BREAST CANCER SCREENING] Future Scheduled 2022-11-[address] [facility] Test 07:50:54 malignant neoplasm of colon (procedure) [code = 298816923] Future Scheduled 2022-11-13 Screening for [facility] Test 07:50:54 malignant neoplasm of colon (procedure) [code = 098447081] Future Scheduled 2022-11-13 COVID-19 VACCINE (3 - [facility] Test 07:50:54 Pfizer risk series) [code = COVID-19 VACCINE (3 - Pfizer risk series)] Future Scheduled 2022-11-13 HEPATITIS B VACCINES Met [facility] Test 07:50:54 (1 of 3 - Risk 3-dose series) [code = HEPATITIS B VACCINES (1 of 3 - Risk 3-dose series)] Future Scheduled 2022-11-13 INFLUENZA VACCINE [facility] Test 07:50:54 [code = INFLUENZA VACCINE] Future Scheduled 2022-11-06 Screening for [facility] Test 08:40:04 malignant neoplasm of colon (procedure) [code = 652839621] Future Scheduled 2022-11-06 Screening for [facility] Test 08:40:04 malignant neoplasm of colon (procedure) [code = 453965367] Future Scheduled 2022-11-06 Screening for [facility] Test 08:40:04 malignant neoplasm of colon (procedure) [code = 330329124] Future Scheduled 2022-11-06 Pneumococcal Vaccine: [facility] Test 08:40:04 Pediatrics (0 to 5 Years) and At-Risk Patients (6 to 64 Years) (1 - PCV) [code = Pneumococcal Vaccine: Pediatrics (0 to 5 Years) and At-Risk Patients (6 to 64 Years) (1 - PCV)] Future Scheduled 2022-11-06 SHINGLES VACCINES (1 Met [facility] Test 08:40:04 of 2) [code = SHINGLES VACCINES (1 of 2)] Future Scheduled 2022-11-06 Screening for [facility] Test 08:40:04 malignant neoplasm of cervix (procedure) [code = 052028445] Future Scheduled 2022-11-06 BREAST CANCER [facility] Test 08:40:04 SCREENING [code = BREAST CANCER SCREENING] Future Scheduled 2022-11-06 Screening for [facility] Test 08:40:04 malignant neoplasm of colon (procedure) [code = 858035879] Future Scheduled 2022-11-06 Screening for [facility] Test 08:40:04 malignant neoplasm of colon (procedure) [code = 142096751] Future Scheduled 2022-11-06 COVID-19 VACCINE (3 - [facility] Test 08:40:04 Pfizer risk series) [code = COVID-19 VACCINE (3 - Pfizer risk series)] Future Scheduled 2022-11-06 HEPATITIS B VACCINES Met [facility] Test 08:40:04 (1 of 3 - Risk 3-dose series) [code = HEPATITIS B VACCINES (1 of 3 - Risk 3-dose series)] Future Scheduled 2022-11-06 INFLUENZA VACCINE Method [facility] Test 08:40:04 [code = INFLUENZA VACCINE] Future Scheduled 2022-10-[address] [facility] Test 15:03:07 malignant neoplasm of colon (procedure) [code = 649133666] Future Scheduled 2022-10-[address] [facility] Test 15:03:07 malignant neoplasm of colon (procedure) [code = 756041581] Future Scheduled 2022-10-[address] [facility] Test 15:03:07 malignant neoplasm of colon (procedure) [code = 303263897] Future Scheduled 2022-10-17 Pneumococcal Vaccine: [facility] Test 15:03:07 Pediatrics (0 to 5 Years) and At-Risk Patients (6 to 64 Years) (1 - PCV) [code = Pneumococcal Vaccine: Pediatrics (0 to 5 Years) and At-Risk Patients (6 to 64 Years) (1 - PCV)] Future Scheduled 2022-10-17 SHINGLES VACCINES (1 Met [facility] Test 15:03:07 of 2) [code = SHINGLES VACCINES (1 of 2)] Future Scheduled 2022-10-[address] [facility] Test 15:03:07 malignant neoplasm of cervix (procedure) [code = 844312527] Future Scheduled 2022-10-[address] [facility] Test 15:03:07 SCREENING [code = BREAST CANCER SCREENING] Future Scheduled 2022-10-[address] [facility] Test 15:03:07 malignant neoplasm of colon (procedure) [code = 180623543] Future Scheduled 2022-10-[address] [facility] Test 15:03:07 malignant neoplasm of colon (procedure) [code = 867418873] Future Scheduled 2022-10-17 COVID-19 VACCINE (3 - [facility] Test 15:03:07 Pfizer risk series) [code = COVID-19 VACCINE (3 - Pfizer risk series)] Future Scheduled 2022-10-17 HEPATITIS B VACCINES Met [facility] Test 15:03:07 (1 of 3 - Risk 3-dose series) [code = HEPATITIS B VACCINES (1 of 3 - Risk 3-dose series)] Future Scheduled 2022-10-17 INFLUENZA VACCINE Method [facility] Test 15:03:07 [code = INFLUENZA VACCINE] Future Scheduled 2022-01-21 HEPATITIS B VACCINES Met [facility] Test 11:09:47 (1 of 3 - 3-dose series) [code = HEPATITIS B VACCINES (1 of 3 - 3-dose series)] Future Scheduled 2022-01-21 Pneumococcal Vaccine: [facility] Test 11:09:47 Pediatrics (0 to 5 Years) and At-Risk Patients (6 to 64 Years) (1 - PCV) [code = Pneumococcal Vaccine: Pediatrics (0 to 5 Years) and At-Risk Patients (6 to 64 Years) (1 - PCV)] Future Scheduled 2022-01-21 SHINGLES VACCINES (1 Met [facility] Test 11:09:47 of 2) [code = SHINGLES VACCINES (1 of 2)] Future Scheduled 2022-01-[address] [facility] Test 11:09:47 malignant neoplasm of cervix (procedure) [code = 214772996] Future Scheduled 2022-01-[address] [facility] Test 11:09:47 SCREENING [code = BREAST CANCER SCREENING] Future Scheduled 2022-01-21 COLONOSCOPY SCREENING [facility] Test 11:09:47 [code = COLONOSCOPY SCREENING] Future Scheduled 2022-01-21 COVID-19 VACCINE (3 - [facility] Test 11:09:47 Pfizer risk series) [code = COVID-19 VACCINE (3 - Pfizer risk series)] Future Scheduled 2022-01-21 INFLUENZA VACCINE Method [facility] Test 11:09:47 [code = INFLUENZA VACCINE] Encounters Start End Encounter Admission Attending Care Care Encounter Source Date/Time Date/Time Type Type Clinicians Facility Department ID 2022-11-11 2022-11-[address]1 [id number] Methodi 01:00:00 01:00:00 Encounter Marielena Tirado 14421.1.1 [facility] 3.430.2.7 Hospit a .3.004956 l .8 2022-11-11 2022-11-[address] [facility] [id number] [address] [place] 00:00:00 00:00:00 MARIELENA [address] 2022-11-07 2022-11-07 [facility], 1.2.840.1 [id number] Methodi 06:04:00 15:41:00 Encounter Ken 86264.1.[address] 3.430.2.7 Hospit a .3.625316 l .8 2022-11-07 2022-11-07 Outpatient [facility] [id number] [address] [place] 00:00:00 00:00:00 KEN [address] 2022-11-06 2022-11-06 [facility], 1.2.840.1 [id number] 2099 [id number] Methodi 00:00:00 00:00:00 Marielena Tirado 42119.1.[address] 3.430.2.7 Hospit a .3.690853 l .8 2022-11-06 2022-11-06 [facility], 1.2.840.1 [id number] 2100 [id number] Methodi 00:00:00 00:00:00 Marielena Tirado [address]31.[address] 3.430.2.7 Hospit a .3.869532 l .8 2022-11-05 2022-11-05 [facility], 1.2.840.1 [id number] 07331 85672 Methodi 09:50:12 09:50:12 Encounter Marielena Tirado 78439.1.[address] 3.430.2.7 Hospit a .3.651397 l .8 2022-11-05 2022-11-05 [facility], 1.2.840.1 [id number] [address]46 [place] 00:00:00 00:00:00 Encounter MARIELENA 96124.1.1 [address] .3.683242 .8 2022-11-05 2022-11-05 Orders [facility], 1.2.840.1 [id number] 241 [id number] Methodi 00:00:00 00:00:00 Only Margaret 33107.1.[address] 3.430.2.7 Hospit a .3.970456 l .8 2022-11-05 2022-11-05 Orders [facility], 1.2.840.1 [id number] 736 [id number] Methodi 00:00:00 00:00:00 Only Margaret 05279.1.[address] 3.430.2.7 Hospit a .3.887914 l .8 2022-11-01 2022-11-01 Telephone Manuel Calvo 1.2.840.1 [id number] 2 [id number] Methodi 00:00:00 00:00:[address] 3.430.2.7 Hospit a .3.238500 l .8 2022-11-01 2022-11-01 Telephone Manuel Calvo 1.2.840.1 [id number] 2 [id number] Methodi 00:00:00 00:00:[address] 3.430.2.7 Hospit a .3.654182 l .8 2022-10-20 2022-10-31 [facility] 1.2.840.1 [id number] Methodi 18:01:00 13:10:00 [facility] Brandy Calvert 15328.1.[address] 3.430.2.7 Hospit a .3.245397 l .8 2022-10-31 2022-10-31 Telephone Monique 1.2.840.1 [id number] 2100 [id number] Methodi 00:00:00 00:00:[address] 3.430.2.7 Hospit a .3.720233 l .8 2022-10-31 2022-10-31 Telephone Monique, 1.2.840.1 [id number] 2100 [id number] Methodi 00:00:00 00:00:[address] Dong 3.430.2.7 Hospit a .3.483709 l .8 2022-10-20 2022-10-31 [facility], [facility] [id number] 793 [place] 00:00:00 00:00:00 [facility] BRANDY [address] 2022-10-24 2022-10-24 Anesthesia JadeLuzjesus 1.2.840.1 [id number] Methodi 13:40:00 18:04:00 Event Jessica Wilkins 02719.1.[address] 3.430.2.7 Hospit a .3.517780 l .8 2022-10-24 2022-10-24 Anesthesia Guille Hansen 1.2.840.1 [id number] Methodi 13:40:00 18:04:00 Event Jessica Wilkins 22823.1.[address] 3.430.2.7 Hospit a .3.061394 l .8 2022-10-24 2022-10-24 Surgery Bradly, 1.2.840.1 [id number] 0946 Methodi 13:00:00 17:55:00 Dima Jim[address]503.1.[address] 3.430.2.7 Hospit a .3.689178 l .8 2022-10-24 2022-10-24 Surgery Bradly, 1.2.840.1 [id number] Methodi 13:00:00 17:55:[address] 3.430.2.7 Hospit a .3.577806 l .8 2022-10-20 2022-10-20 Travel 1.2.840.1 1.2.128.913 4375 152475 Methodi 00:00:00 00:00:[address] 3.430.2.7 0.2.7.3.698 Ho spita .3.512143 084.8 l .8 2022-10-20 2022-10-20 Travel 1.2.840.1 1.2.202.492 7953 142755 Methodi 00:00:00 00:00:[address] 3.430.2.7 0.2.7.3.698 Ho spita .3.200839 084.8 l .8 2022-05-01 2022-08-13 Office Manuel Calvo 1.2.840.1 [id number] Methodi 11:40:00 13:58:[address] 3.430.2.7 Hospit a .3.123131 l .8 2022-05-01 2022-08-13 Office Manuel Calvo 1.2.840.1 [id number] 110 [id number] Methodi 11:40:00 13:58:[address] 3.430.2.7 Hospit a .3.819316 l .8 2022-07-26 2022-07-26 [facility], 1.2.840.1 [id number] 09722 82512 Methodi 10:00:00 10:22:24 Encounter Edward B. 59526.1.[address] 3.430.2.7 Hospit a .3.012876 l .8 2022-07-26 2022-07-26 [facility] 1.2.840.1 [id number] 21001 [id number] Methodi 10:00:00 10:22:24 Encounter Edward B. 35168.1.[address] 3.430.2.7 Hospit a .3.141246 l .8 2022-07-26 2022-07-26 Telephone Manuel Calvo 1.2.840.1 [id number] 2 [id number] Methodi 00:00:00 00:00:[address] 3.430.2.7 Hospit a .3.235661 l .8 2022-07-26 2022-07-26 Orders [facility], 1.2.840.1 [id number] 2100 [id number] Methodi 00:00:00 00:00:00 Only Unknown 24049.1.[address] 3.430.2.7 Hospit a .3.388797 l .8 2022-07-26 2022-07-26 Telephone Manuel Calvo 1.2.840.1 [id number] 2 [id number] Methodi 00:00:00 00:00:[address] 3.430.2.7 Hospit a .3.051756 l .8 2022-07-26 2022-07-26 Orders Provider, 1.2.840.1 [id number] 2100 [id number] Methodi 00:00:00 00:00:00 Only Unknown 30424.1.[address] 3.430.2.7 Hospit a .3.371349 l .8 2022-07-24 2022-07-24 [facility], 1.2.840.1 [id number] 32796 Methodi 12:49:05 13:21:00 Encounter Edyary Ramires. 38922.1.[address] 3.430.2.7 Hospit a .3.927336 l .8 2022-07-24 2022-07-24 [facility], 1.2.840.1 [id number] Methodi 12:49:05 13:21:00 Encounter Edyary Ramires. 23284.1.[address] 3.430.2.7 Hospit a .3.175450 l .8 2022-07-24 2022-07-24 Orders Provider, 1.2.840.1 [id number] 2100 [id number] Methodi 00:00:00 00:00:00 Only Unknown 77594.1.[address] 3.430.2.7 Hospit a .3.522583 l .8 2022-07-24 2022-07-24 Orders Provider, 1.2.840.1 [id number] 2100 [id number] Methodi 00:00:00 00:00:00 Only Unknown 57239.1.[address] 3.430.2.7 Hospit a .3.589072 l .8 2022-07-22 2022-07-22 [facility], 1.2.840.1 [id number] 67750 Methodi 13:00:00 13:26:12 Encounter Edyary B. 76359.1.[address] 3.430.2.7 Hospit a .3.729719 l .8 2022-07-22 2022-07-22 Hospital Almendarez, 1.2.840.1 [id number] Methodi 13:00:00 13:26:12 Encounter Donta Neal 20954.1.[address] 3.430.2.7 Hospit a .3.071135 l .8 2022-07-22 2022-07-22 Orders Provider, 1.2.840.1 [id number] 2099 [id number] Methodi 00:00:00 00:00:00 Only Unknown 54964.1.[address] 3.430.2.7 Hospit a .3.826349 l .8 2022-07-22 2022-07-22 Orders Provider, 1.2.840.1 [id number] 2099 [id number] Methodi 00:00:00 00:00:00 Only Unknown 94955.1.[address] 3.430.2.7 Hospit a .3.514002 l .8 2022-07-18 2022-07-19 [facility].840.1 15426 1011 [id number] Methodi 13:30:00 08:04:51 Encounter Colleen Mcelroy 45798.1.[address] 3.430.2.7 Hospit a .3.787276 l .8 2022-07-18 2022-07-19 [facility] 67018 1011 [id number] Methodi 13:30:00 08:04:51 Encounter Colleen Mcelroy 56711.1.[address] 3.430.2.7 Hospit a .3.162017 l .8 2022-07-19 2022-07-19 Telephone Salvatore 1.2.840.1 [id number] Methodi 00:00:00 00:00:00 Magui Ram [address]596.1.[address] 3.430.2.7 Hospit a .3.481070 l .8 2022-07-19 2022-07-19 Orders Manuel Calvo 1.2.840.1 [id number] 992 [id number] Methodi 00:00:00 00:00:[address] 3.430.2.7 Hospit a .3.926028 l .8 2022-07-19 2022-07-19 Telephone Salvatore, 1.2.840.1 [id number] 534 [id number] Methodi 00:00:00 00:00:00 Magui Ram [address]8910.1.[address] 3.430.2.7 Hospit a .3.496729 l .8 2022-07-19 2022-07-19 Orders Calvo, Manuel 1.2.840.1 [id number] Methodi 00:00:00 00:00:[address] 3.430.2.7 Hospit a .3.929283 l .8 2022-07-18 2022-07-18 [facility] 1.2.840.1 [id number] 62149 Methodi 13:15:00 13:49:09 Encounter Marielena Tirado 48281.1.[address] 3.430.2.7 Hospit a .3.209603 l .8 2022-07-18 2022-07-18 [facility] 1.2.840.1 [id number] 21001 [id number] Methodi 13:15:00 13:49:09 Encounter Marielena Tirado 68340.1.[address] 3.430.2.7 Hospit a .3.492656 l .8 2022-07-18 2022-07-18 Travel 1.2.840.1 1.2.751.917 6788 632168 Methodi 00:00:00 00:00:[address] 3.430.2.7 0.2.7.3.698 Ho spita .3.705415 084.8 l .8 2022-07-18 2022-07-18 Orders [facility], 1.2.840.1 [id number] 2099 [id number] Methodi 00:00:00 00:00:00 Only Unknown 79271.1.[address] 3.430.2.7 Hospit a .3.169008 l .8 2022-07-18 2022-07-18 Travel 1.2.840.1 1.2.803.485 3734 723544 Methodi 00:00:00 00:00:[address] 3.430.2.7 0.2.7.3.698 Ho spita .3.365627 084.8 l .8 2022-07-18 2022-07-18 Orders Provider, 1.2.840.1 [id number] Methodi 00:00:00 00:00:00 Only Unknown 40022.1.[address] 3.430.2.7 Hospit a .3.095400 l .8 2022-07-16 2022-07-16 [facility], 1.2.840.1 [id number] 35113 Methodi 15:17:21 23:59:00 Encounter Marielena Tirado 67415.1.[address] 3.430.2.7 Hospit a .3.031931 l .8 2022-07-16 2022-07-16 [facility], 1.2.840.1 [id number] 43255 Methodi 15:17:21 23:59:00 Encounter Marielena Tirado 08825.1.[address] 3.430.2.7 Hospit a .3.716434 l .8 2022-07-16 2022-07-16 [facility], 1.2.840.1 [id number] 24342 Methodi 13:00:00 14:40:33 Encounter Marielena Tirado 06949.1.[address] 3.430.2.7 Hospit a .3.513517 l .8 2022-07-16 2022-07-16 [facility], 1.2.840.1 [id number] 21001 34141 Methodi 13:00:00 14:40:33 Encounter Marielena Tirado 94382.1.[address] 3.430.2.7 Hospit a .3.762850 l .8 2022-07-16 2022-07-16 Travel 1.2.840.1 1.2.839.266 3349 [id number] Methodi 00:00:00 00:00:[address] 3.430.2.7 0.2.7.3.698 Ho spita .3.600998 084.8 l .8 2022-07-16 2022-07-16 Orders Provider, 1.2.840.1 [id number] 2099 [id number] Methodi 00:00:00 00:00:00 Only Unknown 23794.1.[address] 3.430.2.7 Hospit a .3.306477 l .8 2022-07-16 2022-07-16 Travel 1.2.840.1 1.2.818.127 3591 073693 Methodi 00:00:00 00:00:[address] 3.430.2.7 0.2.7.3.698 Ho spita .3.613058 084.8 l .8 2022-07-16 2022-07-16 Orders Provider, 1.2.840.1 [id number] Methodi 00:00:00 00:00:00 Only Unknown 61963.1.[address] 3.430.2.7 Hospit a .3.488376 l .8 2022-07-11 2022-07-11 Travel 1.2.840.1 1.2.159.744 9989 434384 Methodi 00:00:00 00:00:[address] 3.430.2.7 0.2.7.3.698 Ho spita .3.987336 084.8 l .8 2022-07-11 2022-07-11 Travel 1.2.840.1 1.2.535.921 4239 000009 Methodi 00:00:00 00:00:[address] 3.430.2.7 0.2.7.3.698 Ho spita .3.305264 084.8 l .8 2022-07-10 2022-07-10 [facility], 1.2.840.1 [id number] [id number] Methodi 07:00:00 10:07:00 Encounter Marielena Tirado 00754.1.[address] 3.430.2.7 Hospit a .3.507475 l .8 2022-07-10 2022-07-10 [facility], 1.2.840.1 [id number] 85685 06404 Methodi 07:00:00 10:07:00 Encounter Marielena Tirado 46140.1.[address] 3.430.2.7 Hospit a .3.970559 l .8 2022-07-02 2022-07-02 [facility], Marielena Ram. 1.2.840.1 04468 1011 [id number] Methodi 12:23:19 16:23:30 Encounter Stephani Marinelli 37837.1.[address] 3.430.2.7 Hospit a .3.120270 l .8 2022-07-02 2022[facility]07-02 [facility]1 29791 1011 [id number] Methodi 12:23:19 16:23:30 Encounter Stephani Marinelli 59231.1.[address] 3.430.2.7 Hospit a .3.219925 l .8 2022-07-02 2022-07-02 [facility], 1.2.840.1 [id number] 31537 50324 Methodi 14:00:00 16:02:09 Encounter Marielena Tirado 91004.1.[address] 3.430.2.7 Hospit a .3.502824 l .8 2022-07-02 2022-07-02 [facility], 1.2.840.1 [id number] 96824 21962 Methodi 14:00:00 16:02:09 Encounter Marielena Tirado 55545.1.[address] 3.430.2.7 Hospit a .3.752474 l .8 2022-07-02 2022-07-02 [facility], 1.2.840.1 [id number] 9583 Methodi 00:00:00 00:00:00 Work Esther 24203.1.[address] 3.430.2.7 Hospit a .3.171054 l .8 2022-07-02 2022-07-02 [facility], 1.2.840.1 [id number] 2572 Methodi 00:00:00 00:00:00 Work Esther 99823.1.[address] 3.430.2.7 Hospit a .3.323356 l .8 2022-06-18 2022-06-19 [facility], 1.2.840.1 [id number] 11864 47273 Methodi 14:01:37 09:27:19 Encounter Marielena Tirado 04886.1.[address] 3.430.2.7 Hospit a .3.813674 l .8 2022-06-18 2022-06-19 [facility], 1.2.840.1 [id number] 81494 68700 Methodi 14:01:37 09:27:19 Encounter Marielena Tirado 12098.1.[address] 3.430.2.7 Hospit a .3.822797 l .8 2022-06-17 2022-06-17 [facility] Manuel Calvo 1.2.840.1 [id number] Methodi 10:07:29 23:59:[address] 3.430.2.7 Hospit a .3.954400 l .8 2022-06-17 2022-06-17 [facility] Manuel Calvo 1.2.840.1 [id number] Methodi 10:07:29 23:59:[address] 3.430.2.7 Hospit a .3.007868 l .8 2022-06-17 2022-06-17 [facility] Manuel Calvo 1.2.840.1 [id number] Methodi 10:07:13 23:59:[address] 3.430.2.7 Hospit a .3.847997 l .8 2022-06-17 2022-06-17 [facility] Manuel Calvo 1.2.840.1 [id number] Methodi 10:07:13 23:59:[address] 3.430.2.7 Hospit a .3.857251 l .8 2022-06-17 2022-06-17 Travel 1.2.840.1 1.2.479.080 7501 654645 Methodi 00:00:00 00:00:[address] 3.430.2.7 0.2.7.3.698 Ho spita .3.793826 084.8 l .8 2022-06-17 2022-06-17 Travel 1.2.840.1 1.2.667.226 6641 [id number] Methodi 00:00:00 00:00:[address] 3.430.2.7 0.2.7.3.698 Ho spita .3.916948 084.8 l .8 2022-06-14 2022-06-14 Orders Manuel Calvo 1.2.840.1 [id number] Methodi 00:00:00 00:00:[address] 3.430.2.7 Hospit a .3.345482 l .8 2022-06-14 2022-06-14 Orders Manuel Calvo 1.2.840.1 [id number] Methodi 00:00:00 00:00:[address] 3.430.2.7 Hospit a .3.902685 l .8 2022-05-28 2022-06-07 Office Manuel Calvo 1.2.840.1 [id number] [id number] Methodi 15:00:00 00:40:20 Visit 69035.1.[address] 3.430.2.7 Hospit a .3.739210 l .8 2022-05-28 2022-06-07 Office Manuel Calvo 1.2.840.1 [id number] 217 [id number] Methodi 15:00:00 00:40:[address] 3.430.2.7 Hospit a .3.750632 l .8 2022-06-06 2022-06-06 Orders [place], 1.2.840.1 [id number] 627 [id number] Methodi 00:00:00 00:00:00 Only Margaret 27612.1.[address] 3.430.2.7 Hospit a .3.172144 l .8 2022-06-06 2022-06-06 Orders [facility], 1.2.840.1 203579245 915 9154326 Methodi 00:00:00 00:00:00 Only Margaret 85113.1.[address] 3.430.2.7 Hospit a .3.032199 l .8 2022-05-29 2022-05-29 Telephone Juanito, 1.2.840.1 [id number] 2099 057924 Methodi 00:00:00 00:00:[address] 3.430.2.7 Hospit a .3.971900 l .8 2022-05-29 2022-05-29 Telephone Juanito, 1.2.840.1 [id number] 2099 287341 Methodi 00:00:00 00:00:[address] 3.430.2.7 Hospit a .3.457966 l .8 2022-05-28 2022-05-28 [facility] Manuel Calvo 1.2.840.1 [id number] [id number] Methodi 10:14:40 23:59:[address] 3.430.2.7 Hospit a .3.144664 l .8 2022-05-28 2022-05-28 [facility] Manuel Calvo 1.2.840.1 [id number] Methodi 10:14:40 23:59:[address] 3.430.2.7 Hospit a .3.088695 l .8 2022-05-28 2022-05-28 [facility] Manuel Calvo 1.2.840.1 [id number] Methodi 11:15:00 14:15:[address] 3.430.2.7 Hospit a .3.704810 l .8 2022-05-28 2022-05-28 Infusion Manuel Calvo 1.2.840.1 [id number] Methodi 11:15:00 14:15:[address] 3.430.2.7 Hospit a .3.629486 l .8 2022-05-28 2022-05-28 Orders Salvatore, 1.2.840.1 Methodi 00:00:00 00:00:00 Only Magui Ram 31303.1.[address] 3.430.2.7 Hospit a .3.477214 l .8 2022-05-28 2022-05-28 Travel 1.2.840.1 1.2.469.773 5445 743710 Methodi 00:00:00 00:00:[address] 3.430.2.7 0.2.7.3.698 Ho spita .3.150454 084.8 l .8 2022-05-28 2022-05-28 Orders Salvatore, 1.2.840.1 97 Methodi 00:00:00 00:00:00 Only Magui Ram 77106.1.[address] 3.430.2.7 Hospit a .3.988617 l .8 2022-05-28 2022-05-28 Travel 1.2.840.1 1.2.837.006 7898 140346 Methodi 00:00:00 00:00:[address] 3.430.2.7 0.2.7.3.698 Ho spita .3.701221 084.8 l .8 2022-05-17 2022-05-17 Orders [place], 1.2.840.1 [id number] 129 0562699 Methodi 00:00:00 00:00:00 Only Margaret 69210.1.[address] 3.430.2.7 Hospit a .3.795255 l .8 2022-05-17 2022-05-17 Eloise Guillermo, 1.2.840.1 [id number] 733 [id number] Methodi 00:00:00 00:00:00 Only Margaret 26855.1.[address] 3.430.2.7 Hospit a .3.762302 l .8 2022-03-06 2022-05-09 Office Manuel Calvo 1.2.840.1 [id number] 124 [id number] Methodi 15:20:00 11:13:[address] 3.430.2.7 Hospit a .3.108950 l .8 2022-03-06 2022-05-09 Office Manuel Calvo 1.2.840.1 [id number] 439 [id number] Methodi 15:20:00 11:13:[address] 3.430.2.7 Hospit a .3.080482 l .8 2022-02-05 2022-05-09 Office Manuel Calvo 1.2.840.1 761880604 923 1920383 Methodi 13:20:00 10:48:[address] 3.430.2.7 Hospit a .3.092260 l .8 2022-02-05 2022-05-09 Office Manuel Calvo 1.2.840.1 839761491 828 9426921 Methodi 13:20:00 10:48:[address] 3.430.2.7 Hospit a .3.088632 l .8 2022-05-02 2022-05-02 Orders Salvatore, 1.2.840.1 25532 Methodi 00:00:00 00:00:00 Only Magui Ram 39161.1.[address] 3.430.2.7 Hospit a .3.253385 l .8 2022-05-02 2022-05-02 Eloise Chase 1.2.840.1 25634 Methodi 00:00:00 00:00:00 Only Magui Ram 75137.1.[address] 3.430.2.7 Hospit a .3.354468 l .8 2022-05-02 2022-05-02 Orders [place], 1.2.840.1 47001 Methodi 00:00:00 00:00:00 Only Magui Ram 12939.1.[address] 3.430.2.7 Hospit a .3.696627 l .8 2022-05-02 2022-05-02 Orders [place], 1.2.840.1 01101 Methodi 00:00:00 00:00:00 Only Magui Ram 81231.1.[address] 3.430.2.7 Hospit a .3.510095 l .8 2022-05-01 2022-05-01 Infusion Manuel Calvo 1.2.840.1 142572864 72431700 Methodi 11:15:00 14:15:[address] 3.430.2.7 Hospit a .3.170165 l .8 2022-05-01 2022-05-01 Infusion Manuel Calvo 1.2.840.1 [id number] Methodi 11:15:00 14:15:[address] 3.430.2.7 Hospit a .3.056614 l .8 2022-05-01 2022-05-01 Travel 1.2.840.1 1.2.271.424 0533 140222 Methodi 00:00:00 00:00:[address] 3.430.2.7 0.2.7.3.698 Ho spita .3.329202 084.8 l .8 2022-05-01 2022-05-01 Travel 1.2.840.1 1.2.858.458 2210 140222 Methodi 00:00:00 00:00:[address] 3.430.2.7 0.2.7.3.698 Ho spita .3.025264 084.8 l .8 2022-04-30 2022-04-30 Orders Manuel Calvo 1.2.840.1 [id number] 199 1538154 Methodi 00:00:00 00:00:[address] 3.430.2.7 Hospit a .3.486871 l .8 2022-04-30 2022-04-30 Orders Manuel Calvo 1.2.840.1 415661686 451 0682445 Methodi 00:00:00 00:00:[address] 3.430.2.7 Hospit a .3.046611 l .8 2022-04-02 2022-04-02 Infusion Manuel Calvo 1.2.840.1 634147670 32826437 Methodi 11:15:00 14:15:[address] 3.430.2.7 Hospit a .3.891179 l .8 2022-04-02 2022-04-02 Infusion Manuel Calvo 1.2.840.1 [id number] 69036955 Methodi 11:15:00 14:15:[address] 3.430.2.7 Hospit a .3.282589 l .8 2022-04-02 2022-04-02 Travel 1.2.840.1 1.2.141.707 5329 669615 Methodi 00:00:00 00:00:[address] 3.430.2.7 0.2.7.3.698 Ho spita .3.362575 084.8 l .8 2022-04-02 2022-04-02 Travel 1.2.840.1 1.2.169.434 1257 146216 Methodi 00:00:00 00:00:[address] 3.430.2.7 0.2.7.3.698 Ho spita .3.515254 084.8 l .8 2022-03-29 2022-03-29 Orders Calvo Manuel 1.2.840.1 177530085 644 0388136 Methodi 00:00:00 00:00:[address] 3.430.2.7 Hospit a .3.266098 l .8 2022-03-29 2022-03-29 Orders Lubna Manuel 1.2.840.1 [id number] 857 1213677 Methodi 00:00:00 00:00:[address] 3.430.2.7 Hospit a .3.525972 l .8 2022-03-18 2022-03-18 [facility] 1.2.840.1 340746879 21001 11336 Methodi 13:15:00 14:08:[address] 3.430.2.7 Hospit a .3.687656 l .8 2022-03-18 2022-03-18 [facility] 1.2.840.1 892390143 21001 63821 Methodi 13:15:00 14:08:[address] 3.430.2.7 Hospit a .3.450284 l .8 2022-03-18 2022-03-18 Orders Provider, 1.2.840.1 036072596 2100 987011 Methodi 00:00:00 00:00:00 Only Unknown 21493.1.[address] 3.430.2.7 Hospit a .3.845525 l .8 2022-03-18 2022-03-18 Orders Provider, 1.2.840.1 508257773 2099 714692 Methodi 00:00:00 00:00:00 Only Unknown 12545.1.[address] 3.430.2.7 Hospit a .3.443532 l .8 2022-03-15 2022-03-15 [facility] 1.2.840.1 067146843 21001 21623 Methodi 12:00:00 12:27:[address] 3.430.2.7 Hospit a .3.350546 l .8 2022-03-15 2022-03-15 [facility] 1.2.840.1 578437817 43944 66042 Methodi 12:00:00 12:27:[address] 3.430.2.7 Hospit a .3.150511 l .8 2022-03-15 2022-03-15 Orders Provider, 1.2.840.1 872345287 2099 155778 Methodi 00:00:00 00:00:00 Only Unknown 52210.1.[address] 3.430.2.7 Hospit a .3.723114 l .8 2022-03-15 2022-03-15 Orders Provider, 1.2.840.1 492507423 2099 242251 Methodi 00:00:00 00:00:00 Only Unknown 80529.1.[address] 3.430.2.7 Hospit a .3.234192 l .8 2022-03-14 2022-03-14 [facility], 1.2.840.1 572873667 21001 02610 Methodi 14:30:00 15:26:35 Encounter Marielena Tirado 73789.1.[address] 3.430.2.7 Hospit a .3.768800 l .8 2022-03-14 2022-03-14 [facility], 1.2.840.1 [id number] 84539 Methodi 14:30:00 15:26:35 Encounter Marielena RamMichael 62331.1.[address] 3.430.2.7 Hospit a .3.566921 l .8 2022-03-14 2022-03-14 [facility], Marielena Tirado 1.2.840.1 19321 1011 7439196436 Methodi 13:21:52 15:06:49 Encounter Makayla Cuevas 00109.1.[address] 3.430.2.7 Hospit a .3.543559 l .8 2022-03-14 [facility].2.840[facility]1 99033 1011 [id number] Methodi 13:21:52 15:06:49 Encounter Makayla Cuevas 18547.1.[address] 3.430.2.7 Hospit a .3.185695 l .8 2022-03-14 2022-03-14 [facility] 1.2.840.1 [id number] 21001 42011 Methodi 12:53:46 13:20:[address] 3.430.2.7 Hospit a .3.663309 l .8 2022-03-14 2022-03-14 [facility] 1.2.840.1 995896913 21001 81285 Methodi 12:53:46 13:20:[address] 3.430.2.7 Hospit a .3.241206 l .8 2022-03-14 2022-03-14 Orders Provider, 1.2.840.1 997425595 2099 335838 Methodi 00:00:00 00:00:00 Only Unknown 70380.1.[address] 3.430.2.7 Hospit a .3.842234 l .8 2022-03-14 2022-03-14 Orders Provider, 1.2.840.1 992534986 2099 608444 Methodi 00:00:00 00:00:00 Only Unknown 94228.1.[address] 3.430.2.7 Hospit a .3.080417 l .8 2022-03-13 2022-03-13 [facility] 1.2.840.1 [id number] 84342 Methodi 13:27:48 13:51:[address] 3.430.2.7 Hospit a .3.561391 l .8 2022-03-13 2022-03-13 [facility] 1.2.840.1 [id number] 21001 19423 Methodi 13:27:48 13:51:[address] 3.430.2.7 Hospit a .3.800733 l .8 2022-03-13 2022-03-13 Orders Provider, 1.2.840.1 076113189 2100 966210 Methodi 00:00:00 00:00:00 Only Unknown 71797.1.[address] 3.430.2.7 Hospit a .3.464289 l .8 2022-03-13 2022-03-13 Orders Provider, 1.2.840.1 [id number] 2099 153666 Methodi 00:00:00 00:00:00 Only Unknown 10820.1.[address] 3.430.2.7 Hospit a .3.133705 l .8 2022-03-12 2022-03-12 [facility] 1.2.840.1 [id number] 21001 34608 Methodi 07:15:00 16:57:48 Encounter Marielena Tirado 48861.1.[address] 3.430.2.7 Hospit a .3.225645 l .8 2022-03-12 2022-03-12 [facility] 1.2.840.1 [id number] 79995 Methodi 07:15:00 16:57:48 Encounter Marielena Tirado 50084.1.[address] 3.430.2.7 Hospit a .3.523588 l .8 2022-03-12 2022-03-12 [facility] 1.2.840.1 [id number] 21001 00779 Methodi 12:52:46 13:43:[address] 3.430.2.7 Hospit a .3.761021 l .8 2022-03-12 2022-03-12 [facility] 1.2.840.1 [id number] 21001 09806 Methodi 12:52:46 13:43:[address] 3.430.2.7 Hospit a .3.926408 l .8 2022-03-12 2022-03-12 Orders Provider, 1.2.840.1 [id number] 2099 087303 Methodi 00:00:00 00:00:00 Only Unknown 19496.1.[address] 3.430.2.7 Hospit a .3.308827 l .8 2022-03-12 2022-03-12 Orders Provider, 1.2.840.1 001946269 2099 424302 Methodi 00:00:00 00:00:00 Only Unknown 52185.1.[address] 3.430.2.7 Hospit a .3.382207 l .8 2022-03-11 2022-03-11 [facility] 1.2.840.1 [id number] 21001 39150 Methodi 14:45:00 15:31:[address] 3.430.2.7 Hospit a .3.151597 l .8 2022-03-11 2022-03-11 [facility] 1.2.840.1 [id number] 21001 19318 Methodi 14:45:00 15:31:[address] 3.430.2.7 Hospit a .3.689713 l .8 2022-03-11 2022-03-11 Orders Provider, 1.2.840.1 137733229 2099 897407 Methodi 00:00:00 00:00:00 Only Unknown 05378.1.[address] 3.430.2.7 Hospit a .3.060590 l .8 2022-03-11 2022-03-11 Orders Provider, 1.2.840.1 073403244 2099 116448 Methodi 00:00:00 00:00:00 Only Unknown 36447.1.[address] 3.430.2.7 Hospit a .3.777874 l .8 2022-03-08 2022-03-08 [facility] 1.2.840.1 [id number] 21001 08131 Methodi 12:00:00 12:08:[address] 3.430.2.7 Hospit a .3.758001 l .8 2022-03-08 2022-03-08 [facility] 1.2.840.1 [id number] 21001 92856 Methodi 12:00:00 12:08:[address] 3.430.2.7 Hospit a .3.570036 l .8 2022-03-08 2022-03-08 [facility] 1.2.840.1 [id number] 14358 02904 Methodi 09:22:16 11:29:00 Encounter Marielena Tirado 25926.1.[address] 3.430.2.7 Hospit a .3.023736 l .8 2022-03-08 2022-03-08 [facility], 1.2.840.1 [id number] 49369 13912 Methodi 09:22:16 11:29:00 Alexsandra Tirado 57499.1.[address] 3.430.2.7 Hospit a .3.961950 l .8 2022-03-08 2022-03-08 Orders Provider, 1.2.840.1 [id number] 2099 496875 Methodi 00:00:00 00:00:00 Only Unknown 13620.1.[address] 3.430.2.7 Hospit a .3.563277 l .8 2022-03-08 2022-03-08 Travel 1.2.840.1 1.2.698.468 3351 342191 Methodi 00:00:00 00:00:[address] 3.430.2.7 0.2.7.3.698 Ho spita .3.080587 084.8 l .8 2022-03-08 2022-03-08 Orders Provider, 1.2.840.1 [id number] 2099 528264 Methodi 00:00:00 00:00:00 Only Unknown 03195.1.[address] 3.430.2.7 Hospit a .3.105816 l .8 2022-03-08 2022-03-08 Travel 1.2.840.1 1.2.188.025 3904 102807 Methodi 00:00:00 00:00:[address] 3.430.2.7 0.2.7.3.698 Ho spita .3.074799 084.8 l .8 2022-03-07 2022-03-07 [facility] Marielena Ramsay 1.2.840.1 17605 1011 [id number] Methodi 15:04:08 15:46:52 Encounter Stephani Marinelli 23666.1.[address] 3.430.2.7 Hospit a .3.711386 l .8 2022-03-07 2022-03-07 Hospital Marielena Ramsay 1.2.840.1 97160 1011 [id number] Methodi 15:04:08 15:46:52 Encounter Stephani Marinelli 96982.1.[address] 3.430.2.7 Hospit a .3.990347 l .8 2022-03-07 2022-03-07 [facility] 1.2.840.1 [id number] Methodi 14:45:00 15:02:[address] 3.430.2.7 Hospit a .3.114651 l .8 2022-03-07 2022-03-07 [facility] 1.2.840.1 51 Methodi 14:45:00 15:02:[address] 3.430.2.7 Hospit a .3.385547 l .8 2022-03-07 2022-03-07 Orders Provider, 1.2.840.1 [id number] 2099 698414 Methodi 00:00:00 00:00:00 Only Unknown 33829.1.[address] 3.430.2.7 Hospit a .3.558539 l .8 2022-03-07 2022-03-07 Orders Provider, 1.2.840.1 843584385 2099 091809 Methodi 00:00:00 00:00:00 Only Unknown 89208.1.[address] 3.430.2.7 Hospit a .3.805126 l .8 2022-03-06 2022-03-06 Infusion Manuel Calvo 1.2.840.1 [id number] 21 65951068 Methodi 14:30:00 17:30:[address] 3.430.2.7 Hospit a .3.260197 l .8 2022-03-06 2022-03-06 Infusion Manuel Calvo 1.2.840.1 [id number] 21 10344872 Methodi 14:30:00 17:30:[address] 3.430.2.7 Hospit a .3.106678 l .8 2022-03-06 2022-03-06 Hospital 1.2.840.1 27932 Methodi 13:15:00 13:57:[address] 3.430.2.7 Hospit a .3.897393 l .8 2022-03-06 2022-03-06 Hospital 1.2.840.1 05671 Methodi 13:15:00 13:57:[address] 3.430.2.7 Hospit a .3.325913 l .8 2022-03-06 2022-03-06 Travel 1.2.840.1 1.2.409.007 8371 069911 Methodi 00:00:00 00:00:[address] 3.430.2.7 0.2.7.3.698 Ho spita .3.789945 084.8 l .8 2022-03-06 2022-03-06 Orders Provider, 1.2.840.1 060711693110719421 Methodi 00:00:00 00:00:00 Only Unknown 54914.1.[address] 3.430.2.7 Hospit a .3.096764 l .8 2022-03-06 2022-03-06 Travel 1.2.840.1 1.2.999.691 3901 413689 Methodi 00:00:00 00:00:[address] 3.430.2.7 0.2.7.3.698 Ho spita .3.182339 084.8 l .8 2022-03-06 2022-03-06 Orders Provider, 1.2.840.1 [id number] 977739 Methodi 00:00:00 00:00:00 Only Unknown 71140.1.[address] 3.430.2.7 Hospit a .3.086206 l .8 2022-03-05 2022-03-05 Hospital 1.2.840.1 [id number] 21001 37595 Methodi 14:01:32 14:29:[address] 3.430.2.7 Hospit a .3.280332 l .8 2022-03-05 2022-03-05 [facility] 1.2.840.1 [id number] 21001 68167 Methodi 14:01:32 14:29:[address] 3.430.2.7 Hospit a .3.275623 l .8 2022-03-05 2022-03-05 Travel 1.2.840.1 1.2.075.001 0091 217868 Methodi 00:00:00 00:00:[address] 3.430.2.7 0.2.7.3.698 Ho spita .3.128217 084.8 l .8 2022-03-05 2022-03-05 Orders Provider, 1.2.840.1 2099 891771 Methodi 00:00:00 00:00:00 Only Unknown 80135.1.[address] 3.430.2.7 Hospit a .3.049468 l .8 2022-03-05 2022-03-05 Travel 1.2.840.1 1.2.899.098 5897 741404 Methodi 00:00:00 00:00:[address] 3.430.2.7 0.2.7.3.698 Ho spita .3.929028 084.8 l .8 2022-03-05 2022-03-05 Orders Provider, 1.2.840.1 [id number] 2099 950115 Methodi 00:00:00 00:00:00 Only Unknown 16876.1.[address] 3.430.2.7 Hospit a .3.716261 l .8 2022-03-04 2022-03-04 [facility] 1.2.840.1 [id number] 21001 59595 Methodi 12:47:19 13:24:[address] 3.430.2.7 Hospit a .3.957094 l .8 2022-03-04 2022-03-04 [facility] 1.2.840.1 [id number] 21001 04118 Methodi 12:47:19 13:24:[address] 3.430.2.7 Hospit a .3.517961 l .8 2022-03-04 2022-03-04 Orders Provider, 1.2.840.1 [id number] 2099 820076 Methodi 00:00:00 00:00:00 Only Unknown 22403.1.[address] 3.430.2.7 Hospit a .3.642581 l .8 2022-03-04 2022-03-04 Orders Provider, 1.2.840.1 046902864 2099 294418 Methodi 00:00:00 00:00:00 Only Unknown 31439.1.[address] 3.430.2.7 Hospit a .3.059147 l .8 2022-03-01 2022-03-01 [facility] 1.2.840.1 [id number] 76524 08736 Methodi 14:18:10 14:46:[address] 3.430.2.7 Hospit a .3.472950 l .8 2022-03-01 2022-03-01 [facility] 1.2.840.1 703000133 21001 54966 Methodi 14:18:10 14:46:[address] 3.430.2.7 Hospit a .3.770254 l .8 2022-03-01 2022-03-01 Orders Calvo, Manuel 1.2.840.1 [id number] 637 [id number] Methodi 00:00:00 00:00:[address] 3.430.2.7 Hospit a .3.810023 l .8 2022-03-01 2022-03-01 Orders Provider, 1.2.840.1 [id number] 2099 125676 Methodi 00:00:00 00:00:00 Only Unknown 63577.1.[address] 3.430.2.7 Hospit a .3.468645 l .8 2022-03-01 2022-03-01 Orders Manuel Calvo 1.2.840.1 [id number] 619 4899351 Methodi 00:00:00 00:00:[address] 3.430.2.7 Hospit a .3.379240 l .8 2022-03-01 2022-03-01 Orders Provider, 1.2.840.1 417955012 2100 940202 Methodi 00:00:00 00:00:00 Only Unknown 25384.1.[address] 3.430.2.7 Hospit a .3.566339 l .8 2022-02-28 2022-02-28 [facility] Marielena 1.2.840.1 22578 1011 [id number] Methodi 15:00:00 16:06:57 Encounter Makayla Cuevas 89248.1.[address] 3.430.2.7 Hospit a .3.204287 l .8 2022-02-28 [facility] 1.2.840.1 32372 1011 [id number] Methodi 15:00:00 16:06:57 Encounter Makayla Cuevas 27770.1.[address] 3.430.2.7 Hospit a .3.132445 l .8 2022-02-28 2022-02-28 [facility] 1.2.840.1 [id number] 88491 12265 Methodi 14:30:00 15:13:[address] 3.430.2.7 Hospit a .3.125828 l .8 2022-02-28 2022-02-28 [facility] 1.2.840.1 [id number] 21001 73873 Methodi 14:30:00 15:13:[address] 3.430.2.7 Hospit a .3.008910 l .8 2022-02-28 2022-02-28 Orders Provider, 1.2.840.1 [id number] 2100 636679 Methodi 00:00:00 00:00:00 Only Unknown 94859.1.[address] 3.430.2.7 Hospit a .3.417473 l .8 2022-02-28 2022-02-28 Orders Provider, 1.2.840.1 [id number] 2100 577343 Methodi 00:00:00 00:00:00 Only Unknown 98913.1.[address] 3.430.2.7 Hospit a .3.327363 l .8 2022-02-27 2022-02-27 [facility] 1.2.840.1 [id number] 21001 65722 Methodi 15:00:00 15:28:[address] 3.430.2.7 Hospit a .3.835363 l .8 2022-02-27 2022-02-27 [facility] 1.2.840.1 [id number] 21001 20224 Methodi 15:00:00 15:28:[address] 3.430.2.7 Hospit a .3.068061 l .8 2022-02-27 2022-02-27 Orders Provider, 1.2.840.1 [id number] 2099 191234 Methodi 00:00:00 00:00:00 Only Unknown 47318.1.[address] 3.430.2.7 Hospit a .3.450902 l .8 2022-02-27 2022-02-27 Orders Provider, 1.2.840.1 [id number] 2099 244106 Methodi 00:00:00 00:00:00 Only Unknown 61810.1.[address] 3.430.2.7 Hospit a .3.098910 l .8 2022-02-26 2022-02-26 [facility] 1.2.840.1 [id number] 21001 11249 Methodi 15:00:00 15:36:[address] 3.430.2.7 Hospit a .3.404048 l .8 2022-02-26 2022-02-26 [facility] 1.2.840.1 [id number] Methodi 15:00:00 15:36:[address] 3.430.2.7 Hospit a .3.433509 l .8 2022-02-26 2022-02-26 Orders Provider, 1.2.840.1 [id number] 426543 Methodi 00:00:00 00:00:00 Only Unknown 23063.1.[address] 3.430.2.7 Hospit a .3.894170 l .8 2022-02-26 2022-02-26 Orders Provider, 1.2.840.1 [id number] 034616 Methodi 00:00:00 00:00:00 Only Unknown 55162.1.[address] 3.430.2.7 Hospit a .3.818559 l .8 2022-02-25 2022-02-25 [facility] 1.2.840.1 [id number] 21001 79214 Methodi 14:17:54 14:36:[address] 3.430.2.7 Hospit a .3.457237 l .8 2022-02-25 2022-02-25 [facility] 1.2.840.1 [id number] 21001 53601 Methodi 14:17:54 14:36:[address] 3.430.2.7 Hospit a .3.729245 l .8 2022-02-25 2022-02-25 Travel 1.2.840.1 1.2.636.857 6712 987013 Methodi 00:00:00 00:00:[address] 3.430.2.7 0.2.7.3.698 Ho spita .3.809980 084.8 l .8 2022-02-25 2022-02-25 Orders Provider, 1.2.840.1 2099 328250 Methodi 00:00:00 00:00:00 Only Unknown 65797.1.[address] 3.430.2.7 Hospit a .3.138478 l .8 2022-02-25 2022-02-25 Travel 1.2.840.1 1.2.319.603 8385 912005 Methodi 00:00:00 00:00:[address] 3.430.2.7 0.2.7.3.698 Ho spita .3.508358 084.8 l .8 2022-02-25 2022-02-25 Orders Provider, 1.2.840.1 [id number] 2099 275835 Methodi 00:00:00 00:00:00 Only Unknown 88037.1.[address] 3.430.2.7 Hospit a .3.226334 l .8 2022-02-22 2022-02-22 [facility] 1.2.840.1 [id number] 21001 78788 Methodi 14:29:02 15:26:[address] 3.430.2.7 Hospit a .3.327813 l .8 2022-02-22 2022-02-22 [facility] 1.2.840.1 [id number] 21001 26004 Methodi 14:29:02 15:26:[address] 3.430.2.7 Hospit a .3.225465 l .8 2022-02-21 2022-02-22 [facility], 1.2.840.1 [id number] 25119 16029 Methodi 16:00:00 07:53:40 Encounter Marielena M. 72872.1.[address] 3.430.2.7 Hospit a .3.998507 l .8 2022-02-21 2022-02-22 [facility], 1.2.840.1 [id number] 47176 55186 Methodi 16:00:00 07:53:40 Encounter Marielena YoMichael 46840.1.[address] 3.430.2.7 Hospit a .3.870377 l .8 2022-02-21 2022-02-22 [facility] Marielena YoMichael 1.2.840.1 65017 1011 [id number] Methodi 15:30:00 07:50:44 Encounter Stephani Marinelli 65012.1.[address] 3.430.2.7 Hospit a .3.349514 l .8 2022-02-21 2022-02-22 [facility] Marielena Ramsay 1.2.840.1 64859 1011 [id number] Methodi 15:30:00 07:50:44 Encounter Stephani Marinelli 95109.1.[address] 3.430.2.7 Hospit a .3.514738 l .8 2022-02-22 2022-02-22 Orders Provider, 1.2.840.1 [id number] 2099 001746 Methodi 00:00:00 00:00:00 Only Unknown 88864.1.[address] 3.430.2.7 Hospit a .3.538749 l .8 2022-02-22 2022-02-22 Orders Provider, 1.2.840.1 [id number] 2100 918426 Methodi 00:00:00 00:00:00 Only Unknown 33286.1.[address] 3.430.2.7 Hospit a .3.346181 l .8 2022-02-21 2022-02-21 [facility] 1.2.840.1 [id number] 09651 38086 Methodi 15:00:00 15:31:[address] 3.430.2.7 Hospit a .3.338630 l .8 2022-02-21 2022-02-21 [facility] 1.2.840.1 [id number] 25496 Methodi 15:00:00 15:31:[address] 3.430.2.7 Hospit a .3.963288 l .8 2022-02-21 2022-02-21 Orders Provider, 1.2.840.1 [id number] 2099 613791 Methodi 00:00:00 00:00:00 Only Unknown 65173.1.[address] 3.430.2.7 Hospit a .3.613034 l .8 2022-02-21 2022-02-21 Travel 1.2.840.1 1.2.202.421 7057 206878 Methodi 00:00:00 00:00:[address] 3.430.2.7 0.2.7.3.698 Ho spita .3.683477 084.8 l .8 2022-02-21 2022-02-21 Orders Provider, 1.2.840.1 [id number] 2099 263824 Methodi 00:00:00 00:00:00 Only Unknown 58385.1.[address] 3.430.2.7 Hospit a .3.492933 l .8 2022-02-21 2022-02-21 Travel 1.2.840.1 1.2.086.222 2584 101712 Methodi 00:00:00 00:00:[address] 3.430.2.7 0.2.7.3.698 Ho spita .3.745269 084.8 l .8 2022-02-20 2022-02-20 [facility] 1.2.840.1 [id number] 21001 12486 Methodi 15:00:00 15:27:[address] 3.430.2.7 Hospit a .3.109602 l .8 2022-02-20 2022-02-20 [facility] 1.2.840.1 96863 Methodi 15:00:00 15:27:[address] 3.430.2.7 Hospit a .3.746182 l .8 2022-02-20 2022-02-20 Orders Provider, 1.2.840.1 [id number] Methodi 00:00:00 00:00:00 Only Unknown 68334.1.[address] 3.430.2.7 Hospit a .3.527759 l .8 2022-02-20 2022-02-20 Orders Provider, 1.2.840.1 [id number] Methodi 00:00:00 00:00:00 Only Unknown 26850.1.[address] 3.430.2.7 Hospit a .3.682109 l .8 2022-02-19 2022-02-19 Hospital 1.2.840.1 [id number] 21001 06353 Methodi 16:11:23 17:25:[address] 3.430.2.7 Hospit a .3.468873 l .8 2022-02-19 2022-02-19 [facility] 1.2.840.1 [id number] 21001 78490 Methodi 16:11:23 17:25:[address] 3.430.2.7 Hospit a .3.584809 l .8 2022-02-19 2022-02-19 Orders Provider, 1.2.840.1 [id number] 2099 921412 Methodi 00:00:00 00:00:00 Only Unknown 16804.1.[address] 3.430.2.7 Hospit a .3.574335 l .8 2022-02-19 2022-02-19 Orders Provider, 1.2.840.1 [id number] 2099 727898 Methodi 00:00:00 00:00:00 Only Unknown 35280.1.[address] 3.430.2.7 Hospit a .3.691929 l .8 2022-02-18 2022-02-18 [facility] 1.2.840.1 [id number] 21001 60202 Methodi 14:55:34 15:27:[address] 3.430.2.7 Hospit a .3.411136 l .8 2022-02-18 2022-02-18 [facility] 1.2.840.1 [id number] 21001 67708 Methodi 14:55:34 15:27:[address] 3.430.2.7 Hospit a .3.367585 l .8 2022-02-18 2022-02-18 Orders Provider, 1.2.840.1 [id number] 2099 759427 Methodi 00:00:00 00:00:00 Only Unknown 49378.1.[address] 3.430.2.7 Hospit a .3.440892 l .8 2022-02-18 2022-02-18 Orders Provider, 1.2.840.1 [id number] 408982 Methodi 00:00:00 00:00:00 Only Unknown 68425.1.[address] 3.430.2.7 Hospit a .3.054084 l .8 2022-02-15 2022-02-15 [facility] 1.2.840.1 [id number] 26483 59876 Methodi 14:44:03 15:09:[address] 3.430.2.7 Hospit a .3.533460 l .8 2022-02-15 2022-02-15 [facility] 1.2.840.1 [id number] 16883 69076 Methodi 14:44:03 15:09:[address] 3.430.2.7 Hospit a .3.171311 l .8 2022-02-14 2022-02-15 [facility] Marielena 1.2.840.1 19117 1 [id number] Methodi 15:30:00 08:02:02 Encounter YvesStephani 72962.1.[address] 3.430.2.7 Hospit a .3.791857 l .8 2022-02-14 2022-02-15 [facility] Marielena 1.2.840.1 27251 1011 [id number] Methodi 15:30:00 08:02:02 Encounter Stephani Marinelli 89948.1.[address] 3.430.2.7 Hospit a .3.351344 l .8 2022-02-15 2022-02-15 Orders Provider, 1.2.840.1 [id number] 2100 279515 Methodi 00:00:00 00:00:00 Only Unknown 86884.1.[address] 3.430.2.7 Hospit a .3.724167 l .8 2022-02-15 2022-02-15 Orders Provider, 1.2.840.1 [id number] 2100 864809 Methodi 00:00:00 00:00:00 Only Unknown 17956.1.[address] 3.430.2.7 Hospit a .3.014925 l .8 2022-02-14 2022-02-14 [facility] 1.2.840.1 [id number] 84886 39764 Methodi 16:00:00 23:59:00 Encounter Marielena Tirado 96419.1.[address] 3.430.2.7 Hospit a .3.482229 l .8 2022-02-14 2022-02-14 [facility], 1.2.840.1 [id number] 17196 99773 Methodi 16:00:00 23:59:00 Encounter Marielena Tirado 25485.1.[address] 3.430.2.7 Hospit a .3.884318 l .8 2022-02-14 2022-02-14 [facility] 1.2.840.1 [id number] 21001 89233 Methodi 14:44:03 15:31:[address] 3.430.2.7 Hospit a .3.801665 l .8 2022-02-14 2022-02-14 [facility] 1.2.840.1 [id number] 21001 13154 Methodi 14:44:03 15:31:[address] 3.430.2.7 Hospit a .3.261179 l .8 2022-02-14 2022-02-14 Orders Provider, 1.2.840.1 [id number] 2099 494039 Methodi 00:00:00 00:00:00 Only Unknown 86029.1.[address] 3.430.2.7 Hospit a .3.628143 l .8 2022-02-14 2022-02-14 Orders Provider, 1.2.840.1 [id number] 2099 298326 Methodi 00:00:00 00:00:00 Only Unknown 45506.1.[address] 3.430.2.7 Hospit a .3.378196 l .8 2022-02-13 2022-02-13 [facility] 1.2.840.1 100951619 21001 87084 Methodi 13:13:00 13:38:[address] 3.430.2.7 Hospit a .3.476393 l .8 2022-02-13 2022-02-13 [facility] 1.2.840.1 [id number] 24255 70409 Methodi 13:13:00 13:38:[address] 3.430.2.7 Hospit a .3.264553 l .8 2022-02-13 2022-02-13 Orders Provider, 1.2.840.1 [id number] 2099 153981 Methodi 00:00:00 00:00:00 Only Unknown 57573.1.[address] 3.430.2.7 Hospit a .3.879392 l .8 2022-02-13 2022-02-13 Orders Provider, 1.2.840.1 [id number] 2099 727477 Methodi 00:00:00 00:00:00 Only Unknown 61327.1.[address] 3.430.2.7 Hospit a .3.123963 l .8 2022-02-12 2022-02-12 [facility] 1.2.840.1 [id number] 21001 55016 Methodi 14:38:42 15:16:[address] 3.430.2.7 Hospit a .3.658731 l .8 2022-02-12 2022-02-12 [facility] 1.2.840.1 786113517 21001 46991 Methodi 14:38:42 15:16:[address] 3.430.2.7 Hospit a .3.612569 l .8 2022-02-11 2022-02-12 [facility] 1.2.840.1 [id number] 21001 06466 Methodi 08:45:00 08:24:56 Encounter Marielena YoMichael 10046.1.[address] 3.430.2.7 Hospit a .3.909186 l .8 2022-02-11 2022-02-12 [facility] 1.2.840.1 726904496 21001 98999 Methodi 08:45:00 08:24:56 Encounter Marielena YoMichael 42202.1.[address] 3.430.2.7 Hospit a .3.132314 l .8 2022-02-122022-02-12 Orders Provider, 1.2.840.1 [id number] 2100 019286 Methodi 00:00:00 00:00:00 Only Unknown 18327.1.[address] 3.430.2.7 Hospit a .3.849243 l .8 2022-02-12 2022-02-12 Orders Provider, 1.2.840.1 [id number] 2099 392495 Methodi 00:00:00 00:00:00 Only Unknown 99889.1.[address] 3.430.2.7 Hospit a .3.395616 l .8 2022-02-11 2022-02-11 [facility] 1.2.840.1 [id number] 21001 54974 Methodi 13:09:17 13:34:[address] 3.430.2.7 Hospit a .3.349327 l .8 2022-02-11 2022-02-11 [facility] 1.2.840.1 [id number] 21001 90229 Methodi 13:09:17 13:34:[address] 3.430.2.7 Hospit a .3.923912 l .8 2022-02-11 2022-02-11 Orders Provider, 1.2.840.1 [id number] 2099 618914 Methodi 00:00:00 00:00:00 Only Unknown 10757.1.[address] 3.430.2.7 Hospit a .3.135574 l .8 2022-02-11 2022-02-11 Orders Provider, 1.2.840.1 [id number] 2099 947399 Methodi 00:00:00 00:00:00 Only Unknown 41196.1.[address] 3.430.2.7 Hospit a .3.947713 l .8 2022-02-08 2022-02-08 [facility] 1.2.840.1 150437614 21001 91977 Methodi 14:50:18 15:19:[address] 3.430.2.7 Hospit a .3.835350 l .8 2022-02-08 2022-02-08 [facility] 1.2.840.1 [id number] 34878 67650 Methodi 14:50:18 15:19:[address] 3.430.2.7 Hospit a .3.687737 l .8 2022-02-08 2022-02-08 Orders Provider, 1.2.840.1 [id number] 2099 602094 Methodi 00:00:00 00:00:00 Only Unknown 02585.1.[address] 3.430.2.7 Hospit a .3.941631 l .8 2022-02-08 2022-02-08 Orders Provider, 1.2.840.1 714999096 2100 210869 Methodi 00:00:00 00:00:00 Only Unknown 46954.1.[address] 3.430.2.7 Hospit a .3.622316 l .8 2022-02-07 2022-02-07 [facility] Marielena [facility].840.1 61445 1011 [id number] Methodi 15:05:09 15:42:44 Encounter Stephani Marinelli 15173.1.[address] 3.430.2.7 Hospit a .3.385422 l .8 2022-02-07 [facility]02-[facility] 29129 1 [id number] Methodi 15:05:09 15:42:44 Encounter Stephani Marinelli 84219.1.[address] 3.430.2.7 Hospit a .3.485271 l .8 2022-02-07 2022-02-[address]1 [id number] 34321 30758 Methodi 15:02:53 15:04:[address] 3.430.2.7 Hospit a .3.612427 l .8 2022-02-07 2022-02-07 [facility] 12.840.1 [id number] 11578 57406 Methodi 15:02:53 15:04:[address] 3.430.2.7 Hospit a .3.091955 l .8 2022-02-07 2022-02-07 Travel 1.2.840.1 1.2.020.123 9739 511558 Methodi 00:00:00 00:00:[address] 3.430.2.7 0.2.7.3.698 Ho spita .3.643148 084.8 l .8 2022-02-07 2022-02-07 Orders Provider, 1.2.840.1 [id number] 2099506 Methodi 00:00:00 00:00:00 Only Unknown 98749.1.[address] 3.430.2.7 Hospit a .3.360233 l .8 2022-02-07 2022-02-07 Travel 1.2.840.1 1.2.232.695 9775 150508 Methodi 00:00:00 00:00:[address] 3.430.2.7 0.2.7.3.698 Ho spita .3.293715 084.8 l .8 2022-02-07 2022-02-07 Orders Provider, 1.2.840.1 [id number] 2099506 Methodi 00:00:00 00:00:00 Only Unknown 79274.1.[address] 3.430.2.7 Hospit a .3.688954 l .8 2022-02-06 2022-02-06 [facility] 1.2.840.1 [id number] 61558 Methodi 16:17:46 16:37:[address] 3.430.2.7 Hospit a .3.517786 l .8 2022-02-06 2022-02-06 [facility] 1.2.840.1 [id number] 68883 Methodi 16:17:46 16:37:[address] 3.430.2.7 Hospit a .3.815199 l .8 2022-02-05 2022-02-06 [facility] Marielena Ramsay 2.840.1 02048 1011 [id number] Methodi 16:47:22 09:27:38 Encounter Makayla Cuevas 03527.1.[address] 3.430.2.7 Hospit a .3.266085 l .8 2022-02-05 2022-02-06 [facility] Marielena Ramsay 1.2.840.1 97708 1011 2226758243 Methodi 16:47:22 09:27:38 Encounter Makayla Cuevas 38398.1.[address] 3.430.2.7 Hospit a .3.723699 l .8 2022-02-06 2022-02-06 Orders Provider, 1.2.840.1 [id number] 2099 729054 Methodi 00:00:00 00:00:00 Only Unknown 67213.1.[address] 3.430.2.7 Hospit a .3.094299 l .8 2022-02-06 2022-02-06 Orders [place]mor[place], 1.2.840.1 911191202 257839 4276 Methodi 00:00:00 00:00:00 Only Cecil 38649.1.1 [address] 3.430.2.7 Hospit a .3.536267 l .8 2022-02-06 2022-02-06 Orders Provider, 1.2.840.1 758241053 2099 742666 Methodi 00:00:00 00:00:00 Only Unknown 52049.1.[address] 3.430.2.7 Hospit a .3.812462 l .8 2022-02-06 2022-02-06 Orders [place]mor[place], 1.2.840.1 389611236 981741 2808 Methodi 00:00:00 00:00:00 Only Godsfavour 21167.1.1 044 s t 3.430.2.7 Hospit a .3.329145 l .8 2022-02-05 2022-02-05 [facility], 1.2.840.1 [id number] 65098 96134 Methodi 15:45:00 16:43:41 Encounter Marielena Tirado 51579.1.[address] 3.430.2.7 Hospit a .3.939590 l .8 2022-02-05 2022-02-05 [facility], 1.2.840.1 109568325 37066 89145 Methodi 15:45:00 16:43:41 Alexsandra Tirado 32191.1.[address] 3.430.2.7 Hospit a .3.811877 l .8 2022-02-05 2022-02-05 Infusion Manuel Calvo 1.2.840.1 [id number] 18576128 Methodi 11:45:00 14:45:[address] 3.430.2.7 Hospit a .3.887019 l .8 2022-02-05 2022-02-05 Infusion Manuel Calvo 1.2.840.1 471824996 69603159 Methodi 11:45:00 14:45:[address] 3.430.2.7 Hospit a .3.126128 l .8 2022-02-05 2022-02-05 Orders Provider, 1.2.840.1 [id number] 2099 144653 Methodi 00:00:00 00:00:00 Only Unknown 17061.1.[address] 3.430.2.7 Hospit a .3.926294 l .8 2022-02-05 2022-02-05 Travel 1.2.840.1 1.2.269.141 5339 947741 Methodi 00:00:00 00:00:[address] 3.430.2.7 0.2.7.3.698 Ho spita .3.685462 084.8 l .8 2022-02-05 2022-02-05 Orders Provider, 1.2.840.1 [id number] 2099 835874 Methodi 00:00:00 00:00:00 Only Unknown 74544.1.[address] 3.430.2.7 Hospit a .3.685316 l .8 2022-02-05 2022-02-05 Travel 1.2.840.1 1.2.104.260 7439 683728 Methodi 00:00:00 00:00:[address] 3.430.2.7 0.2.7.3.698 Ho spita .3.509048 084.8 l .8 2022-02-04 2022-02-04 Orders Manuel Calvo 1.2.840.1 [id number] 500 8307615 Methodi 00:00:00 00:00:[address] 3.430.2.7 Hospit a .3.774278 l .8 2022-02-04 2022-02-04 Orders Manuel Calvo 1.2.840.1 [id number] 653 5064530 Methodi 00:00:00 00:00:[address] 3.430.2.7 Hospit a .3.683576 l .8 2022-02-01 2022-02-01 Travel 1.2.840.1 1.2.191.168 1462 998340 Methodi 00:00:00 00:00:[address] 3.430.2.7 0.2.7.3.698 Ho spita .3.222578 084.8 l .8 2022-02-01 2022-02-01 Travel 1.2.840.1 1.2.985.256 8640 981955 Methodi 00:00:00 00:00:[address] 3.430.2.7 0.2.7.3.698 Ho spita .3.745669 084.8 l .8 2022-01-25 2022-01-25 Telephone Manuel Calvo 1.2.840.1 [id number] 2 [id number] Methodi 00:00:00 00:00:[address] 3.430.2.7 Hospit a .3.416325 l .8 2022-01-25 2022-01-25 Telephone Manuel Calvo 1.2.840.1 [id number] 2 [id number] Methodi 00:00:00 00:00:[address] 3.430.2.7 Hospit a .3.068184 l .8 2022-01-21 2022-01-21 [facility] Mckenna, 1.2.840.1 [id number] 15706 83310 Methodi 00:00:00 00:00:00 Work Blanca 85685.1.[address] 3.430.2.7 Hospit a .3.994548 l .8 2022-01-21 2022-01-21 [facility] Mckenna, 1.2.840.1 [id number] 87973 Methodi 00:00:00 00:00:00 Work Blanca 28969.1.[address] 3.430.2.7 Hospit a .3.680483 l .8 2022-01-16 2022-01-17 [facility] Marielena 1.2.840.1 38218 1189 [id number] Methodi 14:32:32 08:38:05 [facility] Margaret Cowan 85228.1.[address] 3.430.2.7 Hospit a .3.449413 l .8 2022-01-16 2022-01-17 [facility] Marielena 1.2.840.1 45145 1189 [id number] Methodi 14:32:32 08:38:05 Encounter Margaret Cowan 94013.1.[address] 3.430.2.7 Hospit a .3.192896 l .8 2022-01-17 2022-01-17 [facility]ypeza, 1.2.840.1 [id number] 63091 17705 Methodi 00:00:00 00:00:00 Work Blanca 99557.1.[address] 3.430.2.7 Hospit a .3.577883 l .8 2022-01-17 2022-01-17 [facility] Mckenna, 1.2.840.1 [id number] 83860 66876 Methodi 00:00:00 00:00:00 Work Blanca 71851.1.[address] 3.430.2.7 Hospit a .3.144813 l .8 2022-01-162022-01-16 [facility], 1.2.840.1 [id number] 97693 Methodi 16:15:00 16:49:06 Encounter Marielena Tirado 78460.1.[address] 3.430.2.7 Hospit a .3.612918 l .8 2022-01-16 2022-01-16 [facility], 1.2.840.1 [id number] 26850 Methodi 16:15:00 16:49:06 Encounter Marielena Tirado 42746.1.[address] 3.430.2.7 Hospit a .3.777989 l .8 2022-01-08 2022-01-16 Office Manuel Calvo 1.2.840.1 [id number] 871 5218919 Methodi 10:20:00 00:36:[address] 3.430.2.7 Hospit a .3.974423 l .8 2022-01-08 2022-01-16 Office Manuel Calvo 1.2.840.1 946473506 649 9030157 Methodi 10:20:00 00:36:[address] 3.430.2.7 Hospit a .3.695117 l .8 2022-01-16 2022-01-16 Travel 1.2.840.1 1.2.295.022 5483 429108 Methodi 00:00:00 00:00:[address] 3.430.2.7 0.2.7.3.698 Ho spita .3.624404 084.8 l .8 2022-01-16 2022-01-16 Travel 1.2.840.1 1.2.442.173 9465 819674 Methodi 00:00:00 00:00:[address] 3.430.2.7 0.2.7.3.698 Ho spita .3.576950 084.8 l .8 2022-01-15 2022-01-15 [facility], 1.2.840.1 [id number] 2099812 Methodi 00:00:00 00:00:00 Marielena Tirado 80964.1.[address] 3.430.2.7 Hospit a .3.222134 l .8 2022-01-15 2022-01-15 [facility], 1.2.840.1 [id number] 2099 822208 Methodi 00:00:00 00:00:00 Marielena Tirado [address]26.1.[address] 3.430.2.7 Hospit a .3.981037 l .8 2022-01-10 2022-01-11 [facility], 1.2.840.1 654299026 35571 Methodi 07:00:00 10:29:48 Encounter Marielena Tirado 09084.1.[address] 3.430.2.7 Hospit a .3.737631 l .8 2022-01-10 2022-01-11 [facility], 1.2.840.1 [id number] 56151 Methodi 07:00:00 10:29:48 Encounter Marielena Tirado 38716.1.[address] 3.430.2.7 Hospit a .3.910368 l .8 2022-01-08 2022-01-08 [facility] Manuel Calvo 1.2.840.1 [id number] 20121283 Methodi 07:18:36 23:59:[address] 3.430.2.7 Hospit a .3.946340 l .8 2022-01-08 2022-01-08 [facility] Manuel Calvo 1.2.840.1 [id number] 80193566 Methodi 07:18:36 23:59:[address] 3.430.2.7 Hospit a .3.884884 l .8 2022-01-08 2022-01-08 Infusion Manuel Calvo 1.2.840.1 845217204 81219082 Methodi 09:15:00 12:15:[address] 3.430.2.7 Hospit a .3.756097 l .8 2022-01-08 2022-01-08 Infusion Manuel Calvo 1.2.840.1 [id number] 21 30191532 Methodi 09:15:00 12:15:[address] 3.430.2.7 Hospit a .3.202670 l .8 2022-01-08 2022-01-08 Orders Manuel Calvo 1.2.840.1 244579622 479 8579047 Methodi 00:00:00 00:00:[address] 3.430.2.7 Hospit a .3.575596 l .8 2022-01-08 2022-01-08 Travel 1.2.840.1 1.2.773.080 3751 132316 Methodi 00:00:00 00:00:[address] 3.430.2.7 0.2.7.3.698 Ho spita .3.676435 084.8 l .8 2022-01-08 2022-01-08 Orders Manuel Calvo 1.2.840.1 [id number] 908 2970121 Methodi 00:00:00 00:00:[address] 3.430.2.7 Hospit a .3.454803 l .8 2022-01-08 2022-01-08 Travel 1.2.840.1 1.2.988.045 7269 132316 Methodi 00:00:00 00:00:[address] 3.430.2.7 0.2.7.3.698 Ho spita .3.920718 084.8 l .8 2022-01-04 2022-01-04 Travel 1.2.840.1 1.2.765.713 8425 132158 Methodi 00:00:00 00:00:[address] 3.430.2.7 0.2.7.3.698 Ho spita .3.756048 084.8 l .8 2022-01-04 2022-01-04 Travel 1.2.840.1 1.2.798.740 5078 377803 Methodi 00:00:00 00:00:[address] 3.430.2.7 0.2.7.3.698 Ho spita .3.128781 084.8 l .8 2021-12-21 2021-12-21 Eloise Guillermo, 1.2.840.1 [id number] 438 9355640 Methodi 00:00:00 00:00:00 Only Margaret 19366.1.[address] 3.430.2.7 Hospit a .3.842373 l .8 2021-12-21 2021-12-21 Eloise Guillermo, 1.2.840.1 [id number] 159 1521777 Methodi 00:00:00 00:00:00 Only Margaret 52575.1.[address] 3.430.2.7 Hospit a .3.332922 l .8 2021-12-11 2021-12-20 Office Manuel Calvo 1.2.840.1 [id number] 878 6342710 Methodi 10:20:00 00:30:[address] 3.430.2.7 Hospit a .3.985171 l .8 2021-12-11 2021-12-20 Office Manuel Calvo 1.2.840.1 043767925 584 1921830 Methodi 10:20:00 00:30:[address] 3.430.2.7 Hospit a .3.225602 l .8 2021-12-11 2021-12-11 Infusion Manuel Calvo 1.2.840.1 [id number] 21 77070104 Methodi 09:15:00 12:15:[address] 3.430.2.7 Hospit a .3.415986 l .8 2021-12-11 2021-12-11 Infusion Manuel Calvo 1.2.840.1 992520010 21 73936883 Methodi 09:15:00 12:15:[address] 3.430.2.7 Hospit a .3.503425 l .8 2021-12-11 2021-12-11 Travel 1.2.840.1 1.2.610.796 0430 411073 Methodi 00:00:00 00:00:[address] 3.430.2.7 0.2.7.3.698 Ho spita .3.976248 084.8 l .8 2021-12-11 2021-12-11 Travel 1.2.840.1 1.2.070.699 1952 578398 Methodi 00:00:00 00:00:[address] 3.430.2.7 0.2.7.3.698 Ho spita .3.052287 084.8 l .8 2021-12-07 2021-12-07 Maneul Ochoa 1.2.840.1 308320906 472 2167763 Methodi 00:00:00 00:00:[address] 3.430.2.7 Hospit a .3.732624 l .8 2021-12-07 2021-12-07 Travel 1.2.840.1 1.2.444.328 7011 578388 Methodi 00:00:00 00:00:[address] 3.430.2.7 0.2.7.3.698 Ho spita .3.771029 084.8 l .8 2021-12-07 2021-12-07 Manuel Ochoa 1.2.840.1 [id number] 443 [id number] Methodi 00:00:00 00:00:[address] 3.430.2.7 Hospit a .3.853426 l .8 2021-12-07 2021-12-07 Travel 1.2.840.1 1.2.312.846 7843 588886 Methodi 00:00:00 00:00:[address] 3.430.2.7 0.2.7.3.698 Ho spita .3.778912 084.8 l .8 2021-11-13 2021-11-22 Office Manuel Calvo 1.2.840.1 [id number] 213 [id number] Methodi 12:00:00 00:28:[address] 3.430.2.7 Hospit a .3.173565 l .8 2021-11-13 2021-11-22 Office Manuel Calvo 1.2.840.1 [id number] 587 5405812 Methodi 12:00:00 00:28:[address] 3.430.2.7 Hospit a .3.649058 l .8 2021-11-13 2021-11-13 [facility] Manuel Calvo 1.2.840.1 [id number] Methodi 08:00:00 23:59:[address] 3.430.2.7 Hospit a .3.747428 l .8 2021-11-13 2021-11-13 [facility] Manuel Calvo 1.2.840.1 [id number] Methodi 08:00:00 23:59:[address] 3.430.2.7 Hospit a .3.490925 l .8 2021-11-13 2021-11-13 Infusion Manuel Calvo 1.2.840.1 [id number] [id number] Methodi 11:15:00 14:15:[address] 3.430.2.7 Hospit a .3.992270 l .8 2021-11-13 2021-11-13 Infusion Manuel Calvo 1.2.840.1 [id number] Methodi 11:15:00 14:15:[address] 3.430.2.7 Hospit a .3.889264 l .8 2021-11-13 2021-11-13 [facility] Manuel Calvo 1.2.840.1 [id number] 299 [id number] Methodi 00:00:00 00:00:[address] 3.430.2.7 Hospit a .3.333041 l .8 2021-11-13 2021-11-13 Travel 1.2.840.1 1.2.098.269 2322 568395 Methodi 00:00:00 00:00:[address] 3.430.2.7 0.2.7.3.698 Ho spita .3.435533 084.8 l .8 2021-11-13 2021-11-13 Orders Manuel Calvo 1.2.840.1 [id number] 830 [id number] Methodi 00:00:00 00:00:[address] 3.430.2.7 Hospit a .3.671526 l .8 2021-11-13 2021-11-13 Travel 1.2.840.1 1.2.486.410 9824 668749 Methodi 00:00:00 00:00:[address] 3.430.2.7 0.2.7.3.698 Ho spita .3.495663 084.8 l .8 2021-11-08 2021-11-08 Travel 1.2.840.1 1.2.433.054 4526 642937 Methodi 00:00:00 00:00:[address] 3.430.2.7 0.2.7.3.698 Ho spita .3.669371 084.8 l .8 2021-11-07 2021-11-07 Travel 1.2.840.1 1.2.745.252 5074 311045 Methodi 00:00:00 00:00:[address] 3.430.2.7 0.2.7.3.698 Ho spita .3.027529 084.8 l .8 2021-11-05 2021-11-05 Orders [place], 1.2.840.1 [id number] 847 [id number] Methodi 00:00:00 00:00:00 Only Margaret 51304.1.[address] 3.430.2.7 Hospit a .3.711394 l .8 2021-10-16 2021-10-26 Office Manuel Calvo 1.2.840.1 [id number] 091 [id number] Methodi 10:20:00 00:28:[address] 3.430.2.7 Hospit a .3.541390 l .8 2021-10-16 2021-10-16 Infusion Mnauel Calvo 1.2.840.1 [id number] 21 [id number] Methodi 09:15:00 12:15:[address] 3.430.2.7 Hospit a .3.754727 l .8 2021-10-16 2021-10-16 Travel 1.2.840.1 1.2.790.877 8584 182901 Methodi 00:00:00 00:00:[address] 3.430.2.7 0.2.7.3.698 Ho spita .3.383043 084.8 l .8 2021-10-15 2021-10-15 Travel 1.2.840.1 1.2.314.599 1264 394181 Methodi 00:00:00 00:00:[address] 3.430.2.7 0.2.7.3.698 Ho spita .3.468757 084.8 l .8 2021-09-18 2021-09-18 Infusion Manuel Calvo 1.2.840.1 [id number] 21 [id number] Methodi 09:15:00 12:15:[address] 3.430.2.7 Hospit a .3.221907 l .8 2021-09-18 2021-09-18 Office Manuel Calvo 1.2.840.1 [id number] 828 [id number] Methodi 10:20:00 10:40:[address] 3.430.2.7 Hospit a .3.512364 l .8 2021-09-18 2021-09-18 Travel 1.2.840.1 1.2.656.608 8658 466426 Methodi 00:00:00 00:00:[address] 3.430.2.7 0.2.7.3.698 Ho spita .3.460018 084.8 l .8 2021-09-18 2021-09-18 Orders Manuel Calvo 1.2.840.1 [id number] 895 [id number] Methodi 00:00:00 00:00:[address] 3.430.2.7 Hospit a .3.271358 l .8 2021-09-14 2021-09-14 Travel 1.2.840.1 1.2.986.675 1912 211885 Methodi 00:00:00 00:00:[address] 3.430.2.7 0.2.7.3.698 Ho spita .3.924930 084.8 l .8 2021-08-21 2021-08-30 Office Manuel Calvo 1.2.840.1 [id number] 140 [id number] Methodi 10:20:00 01:31:[address] 3.430.2.7 Hospit a .3.420433 l .8 2021-08-21 2021-08-21 Infusion Manuel Calvo 1.2.840.1 [id number] 21 [id number] Methodi 09:15:00 12:15:[address] 3.430.2.7 Hospit a .3.800031 l .8 2021-08-21 2021-08-21 Travel 1.2.840.1 1.2.021.588 3870 609561 Methodi 00:00:00 00:00:[address] 3.430.2.7 0.2.7.3.698 Ho spita .3.316520 084.8 l .8 2021-08-20 2021-08-20 [facility] Manuel Calvo 1.2.840.1 [id number] 998 [id number] Methodi 00:00:00 00:00:[address] 3.430.2.7 Hospit a .3.915064 l .8 2021-08-17 2021-08-17 [facility] 1.2.840.1 [id number] 21 [id number] Methodi 11:09:03 23:59:[address] 3.430.2.7 Hospit a .3.500228 l .8 2021-08-17 2021-08-17 [facility] 1.2.840.1 [id number] Methodi 09:33:37 11:08:[address] 3.430.2.7 Hospit a .3.606549 l .8 2021-08-17 2021-08-17 Travel 1.2.840.1 1.2.733.619 0230 781354 Methodi 00:00:00 00:00:[address] 3.430.2.7 0.2.7.3.698 Ho spita .3.764120 084.8 l .8 2021-07-24 2021-08-16 [facility] Manuel Calvo 1.2.840.1 [id number] 262 [id number] Methodi 10:20:00 01:12:[address] 3.430.2.7 Hospit a .3.302076 l .8 2021-08-10 2021-08-10 Travel 1.2.840.1 1.2.873.984 2313 832810 Methodi 00:00:00 00:00:[address] 3.430.2.7 0.2.7.3.698 Ho spita .3.837833 084.8 l .8 2021-08-07 2021-08-07 Travel 1.2.840.1 1.2.938.429 8004 977541 Methodi 00:00:00 00:00:[address] 3.430.2.7 0.2.7.3.698 Ho spita .3.723767 084.8 l .8 2021 2021 Travel 1.2.840.1 1.2.210.435 6031 356932 Methodi 00:00:00 00:00:[address] 3.430.2.7 0.2.7.3.698 Ho spita .3.437512 084.8 l .8 2021-08-02 2021-08-02 Eloise Guillermo 1.2.840.1 [id number] 175 [id number] Methodi 00:00:00 00:00:00 Only Margaret 05752.1.[address] 3.430.2.7 Hospit a .3.117673 l .8 2021-07-24 2021-07-24 Manuel Ray 1.2.840.1 [id number] 21 [id number] Methodi 09:15:00 12:15:[address] 3.430.2.7 Hospit a .3.288540 l .8 2021-07-24 2021-07-24 Travel 1.2.840.1 1.2.681.677 1236 817288 Methodi 00:00:00 00:00:[address] 3.430.2.7 0.2.7.3.698 Ho spita .3.784852 084.8 l .8 2021-07-23 2021-07-23 Maneul Ochoa 1.2.840.1 [id number] 858 [id number] Methodi 00:00:00 00:00:[address] 3.430.2.7 Hospit a .3.843460 l .8 2021-07-23 2021-07-23 Travel 1.2.840.1 1.2.382.559 6270 159463 Methodi 00:00:00 00:00:[address] 3.430.2.7 0.2.7.3.698 Ho spita .3.659317 084.8 l .8 2021-06-26 2021-06-26 Infusion Manuel Cavlo 1.2.840.1 [id number] 21 [id number] Methodi 09:15:00 12:15:[address] 3.430.2.7 Hospit a .3.677230 l .8 2021-06-26 2021-06-26 Office Manuel Calvo 1.2.840.1 [id number] 681 [id number] Methodi 10:20:00 10:40:[address] 3.430.2.7 Hospit a .3.015987 l .8 2021-06-26 2021-06-26 Travel 1.2.840.1 1.2.467.354 2572 223043 Methodi 00:00:00 00:00:[address] 3.430.2.7 0.2.7.3.698 Ho spita .3.501675 084.8 l .8 2021-06-24 2021-06-24 Orders Manuel Calvo 1.2.840.1 [id number] 474 [id number] Methodi 00:00:00 00:00:[address] 3.430.2.7 Hospit a .3.173487 l .8 2021-06-21 2021-06-21 Travel 1.2.840.1 1.2.680.353 4045 002765 Methodi 00:00:00 00:00:[address] 3.430.2.7 0.2.7.3.698 Ho spita .3.231712 084.8 l .8 2021-06-01 2021-06-01 Telephone Carr, 1.2.840.1 [id number] 21 [id number] Methodi 00:00:00 00:00:[address] 3.430.2.7 Hospit a .3.302409 l .8 2021-06-01 2021-06-01 Orders Manuel Calvo 1.2.840.1 [id number] 045 1339691 Methodi 00:00:00 00:00:[address] 3.430.2.7 Hospit a .3.052976 l .8 2021-05-29 2021-05-29 Infusion Manuel Calvo 1.2.840.1 [id number] 21 [id number] Methodi 07:45:00 10:45:[address] 3.430.2.7 Hospit a .3.805332 l .8 2021-05-29 2021-05-29 Office Manuel Calvo 1.2.840.1 [id number] 673 7301745 Methodi 09:00:00 09:20:[address] 3.430.2.7 Hospit a .3.841108 l .8 2021-05-29 2021-05-29 Travel 1.2.840.1 1.2.978.244 2252 399248 Methodi 00:00:00 00:00:[address] 3.430.2.7 0.2.7.3.698 Ho spita .3.466215 084.8 l .8 2021-05-23 2021-05-23 Telephone Manuel Calvo 1.2.840.1 [id number] 2 513011514 Methodi 10:20:00 10:40:[address] 3.430.2.7 Hospit a .3.458116 l .8 2021-05-23 2021-05-23 Telephone Manuel Calvo 1.2.840.1 [id number] 2 [id number] Methodi 00:00:00 00:00:[address] 3.430.2.7 Hospit a .3.112375 l .8 2021-05-22 2021-05-22 [facility] Manuel Calvo 1.2.840.1 [id number] 21 [id number] Methodi 09:30:00 23:59:[address] 3.430.2.7 Hospit a .3.877621 l .8 2021-05-22 2021-05-22 Travel 1.2.840.1 1.2.239.233 3095 696134 Methodi 00:00:00 00:00:[address] 3.430.2.7 0.2.7.3.698 Ho spita .3.806880 084.8 l .8 2021-04-17 2021-04-28 [facility] [place] Manuel 1.2.840.1 [id number] 092 0011149 Methodi 09:20:00 01:17:[address] 3.430.2.7 Hospit a .3.046381 l .8 2021-04-27 2021-04-27 Orders Provider, 1.2.840.1 [id number] 2099 555551 Methodi 00:00:00 00:00:00 Only Unknown 57009.1.[address] 3.430.2.7 Hospit a .3.561910 l .8 2021-04-26 2021-04-26 Travel 1.2.840.1 1.2.091.002 9976 435284 Methodi 00:00:00 00:00:[address] 3.430.2.7 0.2.7.3.698 Ho spita .3.375604 084.8 l .8 2021-04-26 2021-04-26 Orders [place], 1.2.840.1 [id number] 554 3548280 Methodi 00:00:00 00:00:00 Only Margaret 61455.1.[address] 3.430.2.7 Hospit a .3.628580 l .8 2021-04-26 2021-04-26 Orders [place], 1.2.840.1 [id number] 816 7905893 Methodi 00:00:00 00:00:00 Only Margaret 04637.1.[address] 3.430.2.7 Hospit a .3.100293 l .8 2021-04-25 2021-04-25 Travel 1.2.840.1 1.2.264.717 7566 356914 Methodi 00:00:00 00:00:[address] 3.430.2.7 0.2.7.3.698 Ho spita .3.782097 084.8 l .8 2021-04-24 2021-04-24 Infusion Manuel Calvo 1.2.840.1 [id number] 21 [id number] Methodi 07:45:00 12:15:[address] 3.430.2.7 Hospit a .3.960358 l .8 2021-04-24 2021-04-24 Office Manuel Calvo 1.2.840.1 [id number] 121 7669319 Methodi 09:20:00 09:40:[address] 3.430.2.7 Hospit a .3.801431 l .8 2021-04-24 2021-04-24 [facility], 1.2.840.1 [id number] 84705 42680 Methodi 07:00:00 07:24:32 Alexsandra Tirado 38916.1.[address] 3.430.2.7 Hospit a .3.557142 l .8 2021-04-24 2021-04-24 Orders [place] 1.2.840.1 484307667 25163056 Methodi 00:00:00 00:00:00 Only , Zara 68435.1.[address] 3.430.2.7 Hospit a .3.643928 l .8 2021-04-24 2021-04-24 Orders Lilly, 1.2.840.1 [id number] 2100 830975 Methodi 00:00:00 00:00:00 Only Irma 17962.1.[address] 3.430.2.7 Hospit a .3.301268 l .8 2021-04-23 2021-04-23 Travel 1.2.840.1 1.2.959.365 0405 251169 Methodi 00:00:00 00:00:[address] 3.430.2.7 0.2.7.3.698 Ho spita .3.045382 084.8 l .8 2021-04-19 2021-04-19 [facility] 1.2.840.1 [id number] 06 Methodi 23:59:00 23:59:00 Encounter Marielena Tirado 93863.1.[address] 3.430.2.7 Hospit a .3.147330 l .8 2021-04-19 2021-04-19 [facility], 1.2.840.1 [id number] 01040 Methodi 11:45:00 23:59:00 Encounter Marielena Tirado 33016.1.[address] 3.430.2.7 Hospit a .3.209998 l .8 2021-04-19 2021-04-19 [facility] Marielena Ram. 1.2.840.1 34423 1011 [id number] Methodi 11:15:00 12:14:05 Encounter Makayla Cuevas 23118.1.[address] 3.430.2.7 Hospit a .3.880269 l .8 2021-04-19 2021-04-19 Orders Manuel Calvo 1.2.840.1 [id number] 561 [id number] Methodi 00:00:00 00:00:[address] 3.430.2.7 Hospit a .3.727284 l .8 2021-04-19 2021-04-19 Travel 1.2.840.1 1.2.026.978 2616 097642 Methodi 00:00:00 00:00:[address] 3.430.2.7 0.2.7.3.698 Ho spita .3.392694 084.8 l .8 2021-04-17 2021-04-17 Infusion Manuel Calvo 1.2.840.1 [id number] 21 48373865 Methodi 07:45:00 12:15:[address] 3.430.2.7 Hospit a .3.920819 l .8 2021-04-17 2021-04-17 Travel 1.2.840.1 1.2.403.118 1777 402807 Methodi 00:00:00 00:00:[address] 3.430.2.7 0.2.7.3.698 Ho spita .3.787498 084.8 l .8 2021-04-13 2021-04-13 [facility] 1.2.840.1 [id number] 98785 41246 Methodi 11:30:00 14:00:12 Encounter Marielena Tirado 33053.1.[address] 3.430.2.7 Hospit a .3.308898 l .8 2021-04-12 2021-04-12 [facility], Marielena Ram. 1.2.840.1 00671 1011 [id number] Methodi 11:15:00 12:08:31 Encounter Stephani Marinelli 16195.1.[address] 3.430.2.7 Hospit a .3.422128 l .8 2021-04-11 2021-04-12 [facility], 1.2.840.1 [id number] 44635 35105 Methodi 01:00:00 01:11:26 Encounter Marielena Tirado 53202.1.[address] 3.430.2.7 Hospit a .3.407022 l .8 2021-04-12 2021-04-12 Travel 1.2.840.1 1.2.845.833 4848 332227 Methodi 00:00:00 00:00:[address] 3.430.2.7 0.2.7.3.698 spita .3.292054 084.8 l .8 2021-04-11 2021-04-11 [facility] 1.2.840.1 47343171906 Methodi 11:00:00 11:41:12 Encounter Marielena RamMichael 99909.1.[address] 3.430.2.7 Hospit a .3.697836 l .8 2021-04-10 2021-04-10 Infusion Manuel Calvo 1.2.840.1 [id number] [id number] Methodi 11:30:00 16:00:[address] 3.430.2.7 Hospit a .3.620069 l .8 2021-04-10 2021-04-10 Office Manuel Calvo 1.2.840.1 [id number] 033 4477279 Methodi 14:00:00 14:20:[address] 3.430.2.7 Hospit a .3.652171 l .8 2021-04-10 2021-04-10 [facility] 1.2.840.1 322164099 Methodi 10:00:00 10:18:[address] 3.430.2.7 Hospit a .3.827076 l .8 2021-04-10 2021-04-10 Orders Romanaoru, 1.2.840.1 469762341 184420 1617 Methodi 00:00:00 00:00:00 Only Tommieskyliereynaldo 24988.1.1 [address] 3.430.2.7 Hospit a .3.388785 l .8 2021-04-10 2021-04-10 Orders Carr, 1.2.840.1 995449934 2100 947585 Methodi 00:00:00 00:00:00 Only Irma 91901.1.[address] 3.430.2.7 Hospit a .3.894522 l .8 2021-04-10 2021-04-10 Orders [place], 1.2.840.1 907149825 603254 4016 Methodi 00:00:00 00:00:00 Only Cecilio Miller 36388.1.[address] 3.430.2.7 Hospit a .3.613650 l .8 2021-04-10 2021-04-10 Orders Provider, 1.2.840.1 [id number] 2099 428820 Methodi 00:00:00 00:00:00 Only Unknown 10216.1.[address] 3.430.2.7 Hospit a .3.962332 l .8 2021-04-10 2021-04-10 Travel 1.2.840.1 1.2.145.808 3030 527641 Methodi 00:00:00 00:00:[address] 3.430.2.7 0.2.7.3.698 Ho spita .3.268723 084.8 l .8 2021-04-09 2021-04-09 Hospital 1.2.840.1 087630604 21001 71187 Methodi 10:58:48 11:12:[address] 3.430.2.7 Hospit a .3.315761 l .8 2021-04-09 2021-04-09 Orders Provider, 1.2.840.1 [id number] 2099 295926 Methodi 00:00:00 00:00:00 Only Unknown 46878.1.[address] 3.430.2.7 Hospit a .3.096096 l .8 2021-04-04 2021-04-04 Hospital 1.2.840.1 294073621 21001 75181 Methodi 10:10:51 10:46:[address] 3.430.2.7 Hospit a .3.235156 l .8 2021-04-04 2021-04-04 Travel 1.2.840.1 1.2.132.288 5833 304145 Methodi 00:00:00 00:00:[address] 3.430.2.7 0.2.7.3.698 emiliata .3.312811 084.8 l .8 2021-04-04 2021-04-04 Orders Provider, 1.2.840.1 [id number] 2099 516184 Methodi 00:00:00 00:00:00 Only Unknown 27273.1.[address] 3.430.2.7 Hospit a .3.556289 l .8 2021-04-03 2021-04-03 [facility], 1.2.840.1 [id number] 21001 80997 Methodi 23:59:00 23:59:00 Encounter Marielena YoMichael 39209.1.[address] 3.430.2.7 Hospit a .3.343200 l .8 2021-04-03 2021-04-03 [facility] 1.2.840.1 [id number] 74020 44155 Methodi 15:30:00 23:59:00 Encounter Marielena Tirado 19986.1.[address] 3.430.2.7 Hospit a .3.750837 l .8 2021-04-03 2021-04-03 [facility] Marielena Tirado 1.2.840.1 46442 1011 [id number] Methodi 11:07:27 14:09:26 Encounter Stephani Marinelli 41099.1.[address] 3.430.2.7 Hospit a .3.553148 l .8 2021-04-03 2021-04-03 [facility] 1.2.840.1 [id number] 32504 03324 Methodi 10:27:11 10:52:[address] 3.430.2.7 Hospit a .3.895318 l .8 2021-04-03 2021-04-03 Orders Provider, 1.2.840.1 [id number] 2099 230666 Methodi 00:00:00 00:00:00 Only Unknown 44006.1.[address] 3.430.2.7 Hospit a .3.424373 l .8 2021-04-02 2021-04-02 Office Manuel Calvo 1.2.840.1 149782079 574 3969515 Methodi 09:20:00 14:41:[address] 3.430.2.7 Hospit a .3.216054 l .8 2021-04-02 2021-04-02 Infusion Manuel Calvo 1.2.840.1 [id number] 21 61567104 Methodi 08:30:00 14:30:[address] 3.430.2.7 Hospit a .3.178449 l .8 2021-04-02 2021-04-02 Hospital 1.2.840.1 [id number] 06 Methodi 07:15:00 07:51:[address] 3.430.2.7 Hospit a .3.041118 l .8 2021-04-02 2021-04-02 Orders Manuel Calvo 1.2.840.1 [id number] 816 8111276 Methodi 00:00:00 00:00:[address] 3.430.2.7 Hospit a .3.973984 l .8 2021-04-02 2021-04-02 Travel 1.2.840.1 1.2.870.548 5792 947473 Methodi 00:00:00 00:00:[address] 3.430.2.7 0.2.7.3.698 Ho spita .3.290888 084.8 l .8 2021-04-02 2021-04-02 Orders [facility], 1.2.840.1 [id number] 2099 085870 Methodi 00:00:00 00:00:00 Only Unknown 38457.1.[address] 3.430.2.7 Hospit a .3.405989 l .8 2021-03-30 2021-03-30 Hospital 1.2.840.1 100232438 06 Methodi 10:07:02 10:51:[address] 3.430.2.7 Hospit a .3.238747 l .8 2021-03-30 2021-03-30 Orders Provider, 1.2.840.1 [id number] 2099 195756 Methodi 00:00:00 00:00:00 Only Unknown 40280.1.[address] 3.430.2.7 Hospit a .3.167951 l .8 2021-03-29 2021-03-29 [facility], 1.2.840.1 [id number] 03837 Methodi 12:15:00 23:59:00 Encounter Marielena Tirado 67678.1.[address] 3.430.2.7 Hospit a .3.046339 l .8 2021-03-29 [facility] 22032 1011 [id number] Methodi :13:18 12:51:37 Encounter Yves Stephani 49936.1.[address] 3.430.2.7 Hospit a .3.914938 l .8 2021-03-29 2021-03-29 [facility] 1.2.840.1 85613342506 Methodi 11:00:00 11:12:[address] 3.430.2.7 Hospit a .3.793062 l .8 2021-03-29 2021-03-29 Travel 1.2.840.1 1.2.766.307 0765 750043 Methodi 00:00:00 00:00:[address] 3.430.2.7 0.2.7.3.698 Ho spita .3.242118 084.8 l .8 2021-03-29 2021-03-29 Orders Provider, 1.2.840.1 [id number] 2099 039685 Methodi 00:00:00 00:00:00 Only Unknown 88312.1.[address] 3.430.2.7 Hospit a .3.127297 l .8 2021-03-28 2021-03-28 Hospital 1.2.840.1 [id number] Methodi 10:03:08 10:14:[address] 3.430.2.7 Hospit a .3.474484 l .8 2021-03-28 2021-03-28 Orders Provider, 1.2.840.1 [id number] 2100 093565 Methodi 00:00:00 00:00:00 Only Unknown 86168.1.[address] 3.430.2.7 Hospit a .3.066285 l .8 2021-03-27 2021-03-27 [facility] 1.2.840.1 493648075 06 Methodi 14:52:55 15:51:[address] 3.430.2.7 Hospit a .3.108307 l .8 2021-03-26 2021-03-27 [facility] Ventura Navarrete 1.2.840.1 123831 207 [id number] Methodi 17:45:00 14:05:00 Encounter Frances Kong 05037.1.[address] 3.430.2.7 Hospit a .3.523878 l .8 2021-03-27 2021-03-27 Orders Provider, 1.2.840.1 [id number] 2100 047874 Methodi 00:00:00 00:00:00 Only Unknown 23928.1.[address] 3.430.2.7 Hospit a .3.438832 l .8 2021-03-26 2021-03-26 Infusion Manuel Calvo 1.2.840.1 [id number] 21 64117796 Methodi 09:30:00 15:30:[address] 3.430.2.7 Hospit a .3.594373 l .8 2021-03-26 2021-03-26 Office Manuel Calvo 1.2.840.1 [id number] 682 0007070 Methodi 11:00:00 11:20:[address] 3.430.2.7 Hospit a .3.206633 l .8 2021-03-26 2021-03-26 [facility] 1.2.840.1 083151459 Methodi 07:34:29 08:12:[address] 3.430.2.7 Hospit a .3.883295 l .8 2021-03-26 2021-03-26 Orders Carr, 1.2.840.1 [id number] 2099 760437 Methodi 00:00:00 00:00:00 Only Irma 47833.1.[address] 3.430.2.7 Hospit a .3.115412 l .8 2021-03-26 2021-03-26 Travel 1.2.840.1 1.2.144.288 0389 719028 Methodi 00:00:00 00:00:[address] 3.430.2.7 0.2.7.3.698 Ho spita .3.406606 084.8 l .8 2021-03-26 2021-03-26 Orders Provider, 1.2.840.1 [id number] 2099 973790 Methodi 00:00:00 00:00:00 Only Unknown 99931.1.[address] 3.430.2.7 Hospit a .3.044547 l .8 2021-03-25 2021-03-25 Orders Manuel Calvo 1.2.840.1 062732642 267 5041832 Methodi 00:00:00 00:00:[address] 3.430.2.7 Hospit a .3.608519 l .8 2021-03-19 2021-03-24 Office Manuel Calvo 1.2.840.1 [id number] 725 2985363 Methodi 09:40:00 05:09:[address] 3.430.2.7 Hospit a .3.046095 l .8 2021-03-23 2021-03-23 Hospital 1.2.840.1 [id number] 76455 94073 Methodi 10:46:03 11:00:[address] 3.430.2.7 Hospit a .3.619124 l .8 2021-03-23 2021-03-23 Travel 1.2.840.1 1.2.418.496 3830 196160 Methodi 00:00:00 00:00:[address] 3.430.2.7 0.2.7.3.698 Ho spita .3.641021 084.8 l .8 2021-03-23 2021-03-23 Orders Provider, 1.2.840.1 [id number] 2099 215237 Methodi 00:00:00 00:00:00 Only Unknown 05635.1.[address] 3.430.2.7 Hospit a .3.355586 l .8 2021-03-22 2021-03-22 [place] 49767.2.840.1 475731815 21001 69631 Methodi 13:30:00 23:59:00 Encounter Marielena Tirado 88968.1.[address] 3.430.2.7 Hospit a .3.364157 l .8 2021-03-22 2021-03-22 [facility] Marielena Ramsay 1.2.840.1 75825 1011 0124444746 Methodi 10:52:49 13:07:42 Encounter Vicky Duff Etienne 20305.1.1 006 [facility] 3.430.2.7 Hospita .3.202074 l .8 2021-03-22 2021-03-22 [facility] 1.2.840.1 [id number] 88254 09549 Methodi 10:17:08 10:51:[address] 3.430.2.7 Hospit a .3.657779 l .8 2021-03-22 2021-03-22 Orders Provider, 1.2.840.1 [id number] 2099 163036 Methodi 00:00:00 00:00:00 Only Unknown 46250.1.[address] 3.430.2.7 Hospit a .3.275856 l .8 2021-03-21 2021-03-21 [facility] Donta Almendarez 1.2.840.1 28698 1011 [id number] Methodi 11:02:29 15:39:48 Encounter Vicky Duff Etienne 05945.1.[address] Colleen Mcelroy 3.430.2.7 Hospita .3.526763 l .8 2021-03-21 2021-03-21 [facility] 1.2.840.1 [id number] 64197 63402 Methodi 10:01:08 11:01:[address] 3.430.2.7 Hospit a .3.461009 l .8 2021-03-21 2021-03-21 Travel 1.2.840.1 1.2.010.989 0480 850357 Methodi 00:00:00 00:00:[address] 3.430.2.7 0.2.7.3.698 Ho spita .3.757003 084.8 l .8 2021-03-21 2021-03-21 Orders [facility], 1.2.840.1 [id number] 2099 861871 Methodi 00:00:00 00:00:00 Only Unknown 38419.1.[address] 3.430.2.7 Hospit a .3.218397 l .8 2021-03-21 2021-03-21 Orders Blayne 1.2.840.1 233007102 024 5554036 Methodi 00:00:00 00:00:00 Only Manuel Mccormack 00550.1.[address] 3.430.2.7 Hospit a .3.528551 l .8 2021-03-21 2021-03-21 Orders Manuel Calvo 1.2.840.1 907213120 070 6150646 Methodi 00:00:00 00:00:[address] 3.430.2.7 Hospit a .3.118649 l .8 2021-03-20 2021-03-20 [facility] 1.2.840.1 878428912 38587 00152 Methodi 10:34:40 11:10:[address] 3.430.2.7 Hospit a .3.870642 l .8 2021-03-20 2021-03-20 Orders Provider, 1.2.840.1 [id number] 2099 688096 Methodi 00:00:00 00:00:00 Only Unknown 74802.1.[address] 3.430.2.7 Hospit a .3.690204 l .8 2021-03-19 2021-03-19 [facility] 1.2.840.1 857038592 06 Methodi 15:33:25 23:59:[address] 3.430.2.7 Hospit a .3.496221 l .8 2021-03-19 2021-03-19 Infusion Manuel Calvo 1.2.840.1 109033851 88034060 Methodi 08:15:00 14:15:[address] 3.430.2.7 Hospit a .3.398951 l .8 2021-03-19 2021-03-19 Orders Provider, 1.2.840.1 [id number] 2099 812332 Methodi 00:00:00 00:00:00 Only Unknown 84328.1.[address] 3.430.2.7 Hospit a .3.007141 l .8 2021-03-19 2021-03-19 Orders Manuel Calvo 1.2.840.1 [id number] 933 5750843 Methodi 00:00:00 00:00:[address] 3.430.2.7 Hospit a .3.126259 l .8 2021-03-19 2021-03-19 [facility] 1.2.840.1 [id number] 612 1064650 Methodi 00:00:00 00:00:00 ion Estella 10777.1.[address] 3.430.2.7 Hospit a .3.543494 l .8 2021-03-19 2021-03-19 [facility] 1.2.840.1 1.2.248.235 4456 651428 Methodi 00:00:00 00:00:[address] 3.430.2.7 0.2.7.3.698 Ho spita .3.997455 084.8 l .8 2021-03-16 2021-03-16 Hospital 1.2.840.1 [id number] 21001 00197 Methodi 10:38:06 11:03:[address] 3.430.2.7 Hospit a .3.255394 l .8 2021-03-16 2021-03-16 Orders Provider, 1.2.840.1 [id number] 2099 759263 Methodi 00:00:00 00:00:00 Only Unknown 50785.1.[address] 3.430.2.7 Hospit a .3.865065 l .8 2021-03-15 2021-03-15 [facility] 1.2.840.1 [id number] 16515 20781 Methodi 12:30:00 23:59:00 Encounter Marielena Tirado 04559.1.[address] 3.430.2.7 Hospit a .3.169294 l .8 2021-03-15 2021-03-15 [facility] Marielena . 1.2.840.1 37904 1011 [id number] Methodi 11:04:24 12:20:02 Encounter Stephani Marinelli 09879.1.[address] 3.430.2.7 Hospit a .3.215333 l .8 2021-03-15 2021-03-15 [facility] 1.2.840.1 [id number] Methodi 10:36:21 11:03:[address] 3.430.2.7 Hospit a .3.089926 l .8 2021-03-15 2021-03-15 Travel 1.2.840.1 1.2.231.959 8702 945286 Methodi 00:00:00 00:00:[address] 3.430.2.7 0.2.7.3.698 Ho spita .3.769422 084.8 l .8 2021-03-15 2021-03-15 Orders Provider, 1.2.840.1 [id number] 2100 022691 Methodi 00:00:00 00:00:00 Only Unknown 64693.1.[address] 3.430.2.7 Hospit a .3.667825 l .8 2021-03-14 2021-03-14 [facility] 1.2.840.1 [id number] 76104 Methodi 10:21:09 10:40:[address] 3.430.2.7 Hospit a .3.140102 l .8 2021-03-14 2021-03-14 Orders Provider, 1.2.840.1 [id number] 2099 661715 Methodi 00:00:00 00:00:00 Only Unknown 24207.1.[address] 3.430.2.7 Hospit a .3.734633 l .8 2021-03-13 2021-03-13 [facility] 1.2.840.1 [id number] 21001 62261 Methodi 11:00:00 11:22:[address] 3.430.2.7 Hospit a .3.399426 l .8 2021-03-12 2021-03-13 [facility] 1.2.840.1 [id number] 18073 63546 Methodi 01:00:00 05:01:41 Encounter Marielena Tirado 34372.1.[address] 3.430.2.7 Hospit a .3.427506 l .8 2021-03-13 2021-03-13 Orders Provider, 1.2.840.1 [id number] 2099 731455 Methodi 00:00:00 00:00:00 Only Unknown 75715.1.[address] 3.430.2.7 Hospit a .3.329470 l .8 2021-03-12 2021-03-12 Infusion Manuel Calvo 1.2.840.1 [id number] Methodi 08:15:00 14:15:[address] 3.430.2.7 Hospit a .3.989152 l .8 2021-03-12 2021-03-12 Office Manuel Calvo 1.2.840.1 [id number] 456 [id number] Methodi 09:40:00 10:00:[address] 3.430.2.7 Hospit a .3.620557 l .8 2021-03-12 2021-03-12 Hospital [facility], 1.2.840.1 [id number] 84395 87989 Methodi 07:30:00 07:51:01 Alexsandra Tiraod [address]108.1.[address] 3.430.2.7 Hospit a .3.522030 l .8 2021-03-12 2021-03-12 Documentat Lars, 1.2.840.1 [id number] 166 [id number] Methodi 00:00:00 00:00:00 mitch Soria 03723.1.[address] 3.430.2.7 Hospit a .3.523852 l .8 2021-03-12 2021-03-12 Travel 1.2.840.1 1.2.264.121 3183 718681 Methodi 00:00:00 00:00:[address] 3.430.2.7 0.2.7.3.698 Ho spita .3.613682 084.8 l .8 2021-03-12 2021-03-12 Orders [facility], 1.2.840.1 [id number] 2099 114321 Methodi 00:00:00 00:00:00 Only Unknown 13182.1.[address] 3.430.2.7 Hospit a .3.875640 l .8 2021-03-11 2021-03-11 Orders Manuel Calvo 1.2.840.1 [id number] 924 [id number] Methodi 00:00:00 00:00:[address] 3.430.2.7 Hospit a .3.369060 l .8 2021-03-08 2021-03-08 Travel 1.2.840.1 1.2.824.629 6802 816417 Methodi 00:00:00 00:00:[address] 3.430.2.7 0.2.7.3.698 Ho spita .3.649099 084.8 l .8 2021-03-07 2021-03-07 Nurse Only Renan, 1.2.840.1 [id number] 2 [id number] Methodi 00:00:00 00:00:[address] 3.430.2.7 Hospit a .3.949714 l .8 2021-03-07 2021-03-07 Orders Rosacina, 1.2.840.1 [id number] 2100 258814 Methodi 00:00:00 00:00:00 Only Merlessa 12765.1.[address] 3.430.2.7 Hospit a .3.087139 l .8 2021-03-05 2021-03-05 Infusion Manuel Calvo 1.2.840.1 [id number] 21 [id number] Methodi 08:15:00 14:15:[address] 3.430.2.7 Hospit a .3.527272 l .8 2021-03-05 2021-03-05 Office Manuel Calvo 1.2.840.1 [id number] 013 [id number] Methodi 09:40:00 10:00:[address] 3.430.2.7 Hospit a .3.080299 l .8 2021-03-05 2021-03-05 Oncology Vásquez, 1.2.840.1 [id number] Methodi 00:00:00 00:00:00 [facility] Evgeny 40580.1.1 [address] ip 3.430.2.7 Hospit a .3.255149 l .8 2021-03-05 2021-03-05 Travel 1.2.840.1 1.2.616.782 0754 142843 Methodi 00:00:00 00:00:[address] 3.430.2.7 0.2.7.3.698 Ho spita .3.273559 084.8 l .8 2021-03-02 2021-03-02 Travel 1.2.840.1 1.2.537.096 7600 730235 Methodi 00:00:00 00:00:[address] 3.430.2.7 0.2.7.3.698 Ho spita .3.800911 084.8 l .8 2021-02-27 2021-02-27 Social Vastine, 1.2.840.1 [id number] 54529 Methodi 00:00:00 00:00:00 Work Yanni 67281.1.[address] 3.430.2.7 Hospit a .3.420535 l .8 2021-02-26 2021-02-26 Infusion Manuel Calvo 1.2.840.1 [id number] Methodi 09:00:00 15:00:[address] 3.430.2.7 Hospit a .3.281905 l .8 2021-02-26 2021-02-26 [facility] 1.2.840.1 [id number] 79242 Methodi 12:00:00 12:45:13 Encounter Marielena Tirado 82487.1.[address] 3.430.2.7 Hospit a .3.940032 l .8 2021-02-26 [facility] 77607 1189 [id number] Methodi 10:15:00 10:59:00 Encounter Renan Michaeldarius 50112.1.[address] 3.430.2.7 Hospit a .3.191795 l .8 2021-02-26 2021-02-26 Office Manuel Calvo 1.2.840.1 [id number] 449 [id number] Methodi 10:00:00 10:20:[address] 3.430.2.7 Hospit a .3.298091 l .8 2021-02-26 2021-02-26 Documentat [place] 1.2.840.1 [id number] Methodi 00:00:00 00:00:00 Zara meyer 98961.1.[address] 3.430.2.7 Hospit a .3.975940 l .8 2021-02-26 2021-02-26 Travel 1.2.840.1 1.2.586.736 0890 803236 Methodi 00:00:00 00:00:[address] 3.430.2.7 0.2.7.3.698 Ho spita .3.597812 084.8 l .8 2021-02-22 2021-02-22 [facility] 1.2.840.1 [id number] Methodi 06:58:27 23:59:[address] 3.430.2.7 Hospit a .3.673893 l .8 2021-02-22 2021-02-22 Travel 1.2.840.1 1.2.342.334 9282 670261 Methodi 00:00:00 00:00:[address] 3.430.2.7 0.2.7.3.698 Ho spita .3.164875 084.8 l .8 2021-02-19 2021-02-20 [facility] 1.2.840.1 [id number] Methodi 01:00:00 04:58:29 Encounter Marielena Tirado 36326.1.[address] 3.430.2.7 Hospit a .3.851178 l .8 2021-02-20 2021-02-20 [facility] 1.2.840.1 [id number] Methodi 00:00:00 00:00:00 Marielena Tirado [address]90.1.[address] 3.430.2.7 Hospit a .3.389682 l .8 2021-02-19 2021-02-19 Travel 1.2.840.1 1.2.745.533 5995 413939 Methodi 00:00:00 00:00:[address] 3.430.2.7 0.2.7.3.698 Ho spita .3.957447 084.8 l .8 2021-02-19 2021-02-19 Eloise Guillermo, 1.2.840.1 [id number] 039 [id number] Methodi 00:00:00 00:00:00 Only Margaret 35590.1.[address] 3.430.2.7 Hospit a .3.764149 l .8 2021-02-15 2021-02-15 Telephone Devendra, 1.2.840.1 [id number] Methodi 00:00:00 00:00:00 Marielena Tirado 07446.1.[address] 3.430.2.7 Hospit a .3.889485 l .8 2021-02-15 2021-02-15 Travel 1.2.840.1 1.2.892.968 5293 681131 Methodi 00:00:00 00:00:[address] 3.430.2.7 0.2.7.3.698 Ho spita .3.399988 084.8 l .8 2021-02-07 2021-02-14 Office Manuel Calvo 1.2.840.1 [id number] 725 [id number] Methodi 11:20:00 07:01:[address] 3.430.2.7 Hospit a .3.168876 l .8 2021-02-14 2021-02-14 Eloise Eagle, 1.2.840.1 [id number] 153 [id number] Methodi 00:00:00 00:00:00 Only Margaret 10587.1.[address] 3.430.2.7 Hospit a .3.315123 l .8 2021-02-12 2021-02-12 Travel 1.2.840.1 1.2.481.501 0038 718352 Methodi 00:00:00 00:00:[address] 3.430.2.7 0.2.7.3.698 Ho spita .3.094181 084.8 l .8 2021-02-09 2021-02-09 Orders Manuel Calvo 1.2.840.1 [id number] Methodi 00:00:00 00:00:[address] 3.430.2.7 Hospit a .3.959365 l .8 2021-02-09 2021-02-09 Orders Sri, 1.2.840.1 [id number] Methodi 00:00:00 00:00:00 Only Deanna 08867.1.[address] 3.430.2.7 Hospit a .3.042514 l .8 2021-02-08 2021-02-08 Orders Ezra Banks, 1.2.840.1 [id number] Methodi 00:00:00 00:00:00 Only Ember 68460.1.[address] 3.430.2.7 Hospit a .3.109188 l .8 2021-02-07 2021-02-07 [facility] Manuel Calvo 1.2.840.1 [id number] Methodi 09:30:00 23:59:[address] 3.430.2.7 Hospit a .3.624957 l .8 2021-02-07 2021-02-07 Travel 1.2.840.1 1.2.287.132 2733 [id number] Methodi 00:00:00 00:00:[address] 3.430.2.7 0.2.7.3.698 Ho spita .3.128288 084.8 l .8 2021-02-06 2021-02-06 Telephone Delfino, 1.2.840.1 [id number] Methodi 00:00:00 00:00:[address] 3.430.2.7 Hospit a .3.749232 l .8 2021-02-05 2021-02-05 Telephone Prieto, 1.2.840.1 [id number] 2100 [id number] Methodi 00:00:00 00:00:00 Petty Richards 68181.1.1 300 s t 3.430.2.7 Hospit a .3.680590 l .8 2021-02-04 2021-02-04 Orders Manuel Calvo 1.2.840.1 [id number] Methodi 00:00:00 00:00:[address] 3.430.2.7 Hospit a .3.660880 l .8 2021-01-25 2021-02-01 Lab [facility], 1.2.840.1 [id number] 5594 Methodi 11:30:00 08:02:08 Donta Rodriguez 60650.1.[address] 3.430.2.7 Hospit a .3.007778 l .8 2021-01-29 2021-01-29 [facility], 1.2.840.1 [id number] 85712 78459 Methodi 09:21:00 17:47:00 Encounter Donta Rodriguez 88248.1.[address] 3.430.2.7 Hospit a .3.197591 l .8 2021-01-29 2021-01-29 Surgery [facility], 1.2.840.1 [id number] [id number] Methodi 14:20:00 16:30:00 Donta Rodriguez 78729.1.[address] 3.430.2.7 Hospit a .3.584169 l .8 2021-01-29 2021-01-29 Anesthesia Hugh Damon 1.2.840.1 1040 [id number] [id number] Methodi 13:05:00 14:57:00 Event Lata Chowdary 39385.1.[address] 3.430.2.7 Hospit a .3.808632 l .8 2021-01-29 2021-01-29 Travel 1.2.840.1 1.2.499.145 6536 [id number] Methodi 00:00:00 00:00:[address] 3.430.2.7 0.2.7.3.698 Ho spita .3.457756 084.8 l .8 2021-01-25 2021-01-25 Office Lynn, 1.2.840.1 [id number] 5616 Methodi 10:00:00 10:53:07 Visit Pabloyary TamiaWendyMichael 62261.1.[address] 3.430.2.7 Hospit a .3.545564 l .8 2021-01-25 2021-01-25 Travel 1.2.840.1 1.2.554.271 9309 [id number] Methodi 00:00:00 00:00:[address] 3.430.2.7 0.2.7.3.698 Ho spita .3.746604 084.8 l .8 2021-01-24 2021-01-24 Abstract Levi, 1.2.840.1 [id number] [id number] Methodi 00:00:00 00:00:[address] 3.430.2.7 Hospit a .3.998970 l .8 2021-01-24 2021-01-24 Telephone Manuel Calvo 1.2.840.1 [id number] Methodi 00:00:00 00:00:[address] 3.430.2.7 Hospit a .3.670107 l .8 2021-01-10 2021-01-10 Outpatient MANUEL CALVO [facility] 2100 [id number] [place] 00:00:00 00:00:[address] 2021-01-10 2021-01-10 Outpatient MANUEL CALVO [facility] 2100 [id number] [place] 00:00:00 00:00:[address] 2021-01-05 2021-01-05 Outpatient MANUEL CALVO [facility] 2100 [id number] [place] 00:00:00 00:00:[address] 2020-12-13 2020-12-13 Outpatient [facility] 2100 [id number] [place] 00:00:00 00:00:[address] 2020-12-13 2020-12-13 Outpatient [facility] 2100 [id number] [place] 00:00:00 00:00:[address] 2020-12-06 2020-12-06 Outpatient [facility] 2100 [id number] [place] 00:00:00 00:00:[address] 2020-11-15 2020-11-15 Outpatient [facility] 2100 [id number] [place] 00:00:00 00:00:[address] 2020-11-15 2020-11-15 Outpatient [facility] 2100 [id number] [place] 00:00:00 00:00:[address] 2020-10-18 2020-10-18 Outpatient [facility] 2100 [id number] [place] 00:00:00 00:00:[address] 2020-10-18 2020-10-18 Outpatient [facility] 2100 [id number] [place] 00:00:00 00:00:[address] 2020-09-20 2020-09-20 Outpatient [facility] 2100 [id number] [place] 00:00:00 00:00:[address] 2020-09-20 2020-09-20 Outpatient [facility] 2100 [id number] [place] 00:00:00 00:00:[address] 2020-09-01 2020-09-01 Outpatient [facility] 2100 [id number] [place] 00:00:00 00:00:[address] 2020-08-23 2020-08-23 Outpatient [facility]VO [facility] 2100 [id number] [place] 00:00:00 00:00:[address] 2020-08-23 2020-08-23 Outpatient [facility]VO [facility] 2100 [id number] [place] 00:00:00 00:00:[address] 2020-07-26 2020-07-26 Outpatient [facility]VO [facility] 2100 [id number] [place] 00:00:00 00:00:[address] 2020-07-26 2020-07-26 Outpatient CALVO, MANUEL [facility] 2100 [id number] [place] 00:00:00 00:00:[address] 2020-06-30 2020-07-14 Outpatient MANUEL CALVO [facility] 2100 [id number] [place] 00:00:00 00:00:[address] 2020-06-28 2020-06-28 Outpatient CALVO, MANUEL [facility] 2100 [id number] [place] 00:00:00 00:00:[address] 2020-06-28 2020-06-28 Outpatient CALVO, MANUEL [facility] 2100 [id number] [place] 00:00:00 00:00:[address] 2020-05-31 2020-05-31 Outpatient CALVO, MANUEL [facility] 2100 [id number] [place] 00:00:00 00:00:[address] 2020-05-31 2020-05-31 Outpatient CALVO, MANUEL [facility] 2100 [id number] [place] 00:00:00 00:00:[address] 2020-05-29 2020-05-29 Outpatient CALVO, MANUEL [facility] 2100 [id number] [place] 00:00:00 00:00:[address] 2020-05-03 2020-05-03 Outpatient MANUEL CALVO [facility] 2100 [id number] [place] 00:00:00 00:00:[address] 2020-05-03 2020-05-03 Outpatient CALVO, [facility] 2100 [id number] [place] 00:00:00 00:00:[address] 2020-04-04 2020-04-04 Outpatient CALVOMANUEL [facility] 2100 [id number] [place] 00:00:00 00:00:[address] 2020-04-04 2020-04-04 Outpatient CALVOMANUEL [facility] 2100 [id number] [place] 00:00:00 00:00:[address] 2020-03-16 2020-03-16 Outpatient MANUEL CALVO [facility] 2100 [id number] [place] 00:00:00 00:00:[address] 2020-03-08 2020-03-08 Outpatient CALVOMANUEL [facility] 2100 [id number] [place] 00:00:00 00:00:[address] 2020-03-08 2020-03-08 Outpatient CALVO, [facility] 2100 [id number] [place] 00:00:00 00:00:[address] 2020-02-09 2020-02-09 Outpatient CALVO, MANUEL [facility] 2100 [id number] [place] 00:00:00 00:00:[address] 2020-02-09 2020-02-09 Outpatient CALVO, [facility] 2100 [id number] [place] 00:00:00 00:00:[address] 2020-01-12 2020-01-12 Outpatient CALVO, [facility] 2100 [id number] [place] 00:00:00 00:00:[address] 2020-01-12 2020-01-12 Outpatient CALVO, [facility] 2100 [id number] [place] 00:00:00 00:00:[address] 2020-01-11 2020-01-11 Outpatient CALVO, [facility] 2100 [id number] [place] 00:00:00 00:00:[address] 2019-12-22 2019-12-22 Outpatient CALVO, [facility] 2100 [id number] [place] 00:00:00 00:00:[address] 2019-12-15 2019-12-15 Outpatient CALVO, [facility] 2100 [id number] [place] 00:00:00 00:00:[address] 2019-12-15 2019-12-15 Outpatient LUNBA [facility] 2100 [id number] [place] 00:00:00 00:00:[address] 2019-12-15 2019-12-15 Outpatient CALVO, [facility] 2100 [id number] [place] 00:00:00 00:00:[address] 2019-12-02 2019-12-02 Outpatient CALVO, [facility] 2100 [id number] [place] 00:00:00 00:00:[address] 2019-11-17 2019-11-17 Outpatient CALVO, [facility] 2100 [id number] [place] 00:00:00 00:00:[address] 2019-11-17 2019-11-17 Outpatient CALVO, [facility] 2100 [id number] [place] 00:00:00 00:00:[address] 2019-11-03 2019-11-03 Outpatient CORINNEER, [facility] 2100 [id number] [place] 00:00:00 00:00:00 MANUEL [address] 2019-10-20 2019-10-20 Outpatient LUBNA MANUEL [facility] 2100 [id number] [place] 00:00:00 00:00:[address] 2019-10-20 2019-10-20 Outpatient LUBNA MANUEL [facility] 2100 [id number] [place] 00:00:00 00:00:[address] 2019-10-13 2019-10-13 Outpatient FARACH, [facility] [id number] 887 [place] 00:00:00 00:00:00 MARIELENA [address] 2019-10-13 2019-10-13 Outpatient FARACH, [facility] [id number] 237 [place] 00:00:00 00:00:00 MARIELENA [address] 2019-10-13 2019-10-13 Outpatient FARACH, [facility] [id number] 516 [place] 00:00:00 00:00:00 MARIELENA [address] 2019-10-11 2019-10-12 Outpatient FARACH, [facility] [id number] 077 [place] 00:00:00 00:00:00 MARIELENA [address] 2019-10-11 2019-10-11 Outpatient FARACH, [facility] [id number] 862 [place] 00:00:00 00:00:00 MARIELENA [address] 2019-10-08 2019-10-08 Outpatient FARACH, [facility] [id number] 862 [place] 00:00:00 00:00:00 MARIELENA [address] 2019-10-08 2019-10-08 Outpatient FARACH, [facility] [id number] 078 [place] 00:00:00 00:00:00 MARIELENA [address] 2019-10-06 2019-10-06 Outpatient FARACH, [facility] [id number] 862 [place] 00:00:00 00:00:00 MARIELENA [address] 2019-10-05 2019-10-05 Outpatient FARACH, [facility] [id number] 887 [place] 00:00:00 00:00:00 MARIELENA [address] 2019-09-29 2019-09-29 Outpatient MANUEL CALVO [facility] 2100 [id number] [place] 00:00:00 00:00:[address] 2019-09-29 2019-09-29 Outpatient LUBNA, [facility] 2100 [id number] [place] 00:00:00 00:00:[address] 2019-09-29 2019-09-29 Outpatient CALVO, [facility] 2100 [id number] [place] 00:00:00 00:00:[address] 2019-09-29 2019-09-29 Outpatient LUBNA, [facility] 2100 [id number] [place] 00:00:00 00:00:[address] 2019-09-29 2019-09-29 Outpatient FARACH, [facility] [id number] 762 [place] 00:00:00 00:00:00 MARIELENA [address] 2019-09-23 2019-09-23 Outpatient FARACH, [facility] [id number] 492 [place] 00:00:00 00:00:00 MARIELENA [address] 2019-09-20 2019-09-21 Outpatient FARACH, [facility] [id number] 239 [place] 00:00:00 00:00:00 MARIELENA [address] 2019-09-20 2019-09-20 Outpatient LUBNA, [facility] 2100 [id number] [place] 00:00:00 00:00:[address] 2019-09-20 2019-09-20 Outpatient FARACH, [facility] [id number] 239 [place] 00:00:00 00:00:00 MARIELENA [address] 2019-09-10 2019-09-11 Outpatient FARACH, [facility] [id number] 796 [place] 00:00:00 00:00:00 MARIELENA [address] 2019-09-02 2019-09-02 Outpatient LYNN, [facility] [id number] 202 [place] 00:00:00 00:00:00 EDYARY [address] 2019-08-24 2019-08-24 Outpatient LYNN, [facility] [id number] 014 [place] 00:00:00 00:00:00 EDWARD [address] 2019-08-02 2019-08-02 Outpatient LYNN, [facility] [id number] 125 [place] 00:00:00 00:00:00 EDWARD [address] 2019-07-20 2019-07-20 Outpatient LYNN, [place] [id number] 911 [place] 00:00:00 00:00:00 EDWARD [address] 2019-07-08 2019-07-08 Outpatient LYNN, [facility] [id number] 651 [place] 00:00:00 00:00:00 EDWARD [address] 2019-07-08 2019-07-08 Outpatient LYNN, [facility] [id number] 364 [place] 00:00:00 00:00:00 EDWARD [address] 2019-07-08 2019-07-08 Outpatient LYNN, [facility] [id number] 646 [place] 00:00:00 00:00:00 EDWARD [address] 2019-07-08 2019-07-08 Outpatient LYNN, [facility] [id number] 650 [place] 00:00:00 00:00:00 EDWARD [address] Results Test Description Test Time Test Comments Results Result Comments Source ECG 12 lead 2022-10-31 18:29:24 Test Item Value Reference Range Interpretation Comme nts Ventricular rate (test code = 253) 92 Atrial rate (test code = 255) 92 NM interval (test code = 266) 138 QRSD interval (test code = 260) 94 QT interval (test code = 264) 398 QTC interval (test code = 265) 492 P axis 1 (test code = 267) 58 QRS axis 1 (test code = 268) 35 T wave axis (test code = 270) 51 EKG impression (test code = 273) Sinus rhythm with premature atrial complexes- [facility] 12 [id number] 18:29:24 Test Item Value Reference Range Interpretation Comments Ventricular rate (test 92 code = 253) Atrial rate (test code = 92 255) NM interval (test code = 138 266) QRSD interval (test code 94 = 260) QT interval (test code = 398 264) QTC interval (test code 492 = 265) P axis 1 (test code = 58 267) QRS axis 1 (test code = 35 268) T wave axis (test code = 51 270) EKG impression (test Sinus rhythm with code = 273) premature atrial complexes-Electronica lly Signed By Micheal Ross MD ([id number]) on 10/31/2022 1:29:22 PM [facility]2023-06-22 14:55:00 Test Item Value Reference Range Interpretation Comments POC glucose (test 97 mg/dL 65-99 Grader Tender N libby: Susan code = 28439-7) FatiaditiDevice ID: [id number] able: No Action Needed [facility] [id number] 14:55:00 Test Item Value Reference Range Interpretation Comments POC glucose (test 97 mg/dL 65-99 Grader Tender N libby: Susan code = 30709-6) FatimaDevice ID: [id number] able: No [facility] [id number] 19:13:43 Test Item Value Reference Range Interpretation Comments Case number (test code = [id number]) Surgical pathology See link below for report (test code = PDF Lab Report 2255) Result status (test code This is Final Report = [id number]) [id number] [facility] [id number] 19:13:43 Test Item Value Reference Range Interpretation Comments Case number (test code = [id number]) Surgical pathology See link below for report (test code = PDF Lab Report 2255) Result status (test code This is Final Report = [id number]) for [id number] [id number] 16:47:59 Test Item Value Reference Range Interpretation Comments SUPPLIER NAME (test [facility] code = 6415) SUPPLIER PHONE (test code = 6416) ORDER STATUS (test code Delivery Successful = 6417) DELIVERY NOTE (test code = 6419) REQUESTED DELIVEY DATE 10/30/2022 (test code = 6420) ITEM DESCRIPTION (test Wheeled Walker, Adult Qty: 1 code = 6423) EXPECTED DELIVERY DATE 10/30/2022 (test code = 6421) ACTUAL DELIVERY DATE 10/30/2022 (test code = 6422) [facility] [id number] 16:47:59 Test Item Value Reference Range Interpretation Comments SUPPLIER NAME (test [facility] code = 6415) SUPPLIER PHONE (test code [...] [facility] platelet pheresis, 1 [id number] 09:49:00 Test Item Value Reference Range Interpretation Comments Product name (test code Platelets Aph LR, Path = 25) Red cont2 Unit number (test code [id number] = 7462300) Product code (test code K0914J97 = 3092) Dispense status (test Transfused code = 24) Blood expiration date (test code = 302) Blood type code (test 6200 code = 308) Blood type (test code = A POSITIVE 1314) Compatibility (test Not required code = 6400) [facility] platelet pheresis, 1 [id number] 09:49:00 Test Item Value Reference Range Interpretation Comments Product name (test code Platelets Aph LR, Path = 25) Red cont2 Unit number (test code [id number] = 2616945) Product code (test code R5378E74 = 3092) Dispense status (test Transfused code = 24) Blood expiration date (test code = 302) Blood type code (test 6200 code = 308) Blood type (test code = A POSITIVE 1314) Compatibility (test Not required code = 6400) [facility] ONC DAILY [id number] 15:22:25 Test Item Value Reference Range Interpretation [...] code = 5717) [facility] DAILY [id number] 15:22:25 Test Item Value Reference Range Interpretation [...] code = 5717) [facility] DAILY [id number] 15:22:25 Test Item Value Reference Range Interpretation [...] code = 5717) [facility] DAILY [id number] 18:21:01 Test Item Value Reference Range Interpretation [...] code = 5717) [facility] DAILY [id number] 18:21:01 Test Item Value Reference Range Interpretation [...] code = 5717) [facility] DAILY [id number] 18:21:01 Test Item Value Reference Range Interpretation [...] code = 5717) [facility] DAILY [id number] 18:26:14 Test Item Value Reference Range Interpretation [...] in cGy 5000 (test code = 5717) [facility] ONC DAILY [id number] 18:26:14 Test Item Value Reference Range Interpretation [...] in cGy 5000 (test code = 5717) [facility] ONC DAILY [id number] 18:26:14 Test Item Value Reference Range Interpretation [...] in cGy 5000 (test code = 5717) [facility] ONC DAILY [id number] 19:49:09 Test Item Value Reference Range Interpretation [...] code = 5717) [facility] DAILY [id number] 19:49:09 Test Item Value Reference Range Interpretation [...] code = 5717) [facility] DAILY [id number] 19:49:09 Test Item Value Reference Range Interpretation [...] code = 5717) [facility] DAILY [id number] 20:40:34 Test Item Value Reference Range Interpretation [...] code = 5717) [facility] DAILY [id number] 20:40:34 Test Item Value Reference Range Interpretation [...] code = 5717) [facility] DAILY [id number] 20:40:34 Test Item Value Reference Range Interpretation [...] in cGy 5000 (test code = 5717) [facility] [id number] 16:28:00 Test Item Value Reference Range Interpretation Comments POC glucose (test code 108 mg/dL 65-99 H Opera tor Name: Edilberto = 13181-2) BlaineDevice ID : [id number] able: [facility] Notified building energy consultant Interpretation Abnormal (test code = 73592-2) [facility] ONC COURSE [id number] 14:20:15 Test Item Value Reference Range Interpretation [...] = 5710) Dosage Given to Date in 60.3999621 Gy (test code = 5711) Plan ID (test code = Subcarina 5713) Plan Name (test code = Subcarina 5714) Fractions Treated to 30 of 30 Date (test code = 5715) Prescribed Dose Per 2 Fraction in Gy (test code = 5716) Prescription Dose in cGy 6000 (test code = 5717) [facility] ONC COURSE [id number] 14:20:15 Test Item Value Reference Range Interpretation [...] = 5710) Dosage Given to Date in 60.4401993 Gy (test code = 5711) Plan ID (test code = Subcarina 5713) Plan Name (test code = Subcarina 5714) Fractions Treated to 30 of 30 Date (test code = 5715) Prescribed Dose Per 2 Fraction in Gy (test code = 5716) Prescription Dose in cGy 6000 (test code = 5717) [facility] ONC COURSE [id number] 14:20:15 Test Item Value Reference Range Interpretation [...] = 5710) Dosage Given to Date in 60.4411936 Gy (test code = 5711) Plan ID (test code = Subcarina 5713) Plan Name (test code = Subcarina 5714) Fractions Treated to 30 30 Date (test code = 5715) Prescribed Dose Per 2 Fraction in Gy (test code = 5716) Prescription Dose in cGy 6000 (test code = 5717) [facility] ONC DAILY [id number] 20:08:59 Test Item Value Reference Range Interpretation [...] = 5710) Dosage Given to Date in 60.0982203 Gy (test code = 5711) Session Dosage Given in 2.83016416 Gy (test code = 5712) Plan ID (test code = Subcarina 5713) Fractions Treated to 30 Date (test code = 5715) Prescribed Dose Per 2 Fraction in Gy (test code = 5716) Prescription Dose in cGy 6000 (test code = 5717) [facility] DAILY [id number] 20:08:59 Test Item Value Reference Range Interpretation [...] = 5710) Dosage Given to Date in 60.9157576 Gy (test code = 5711) Session Dosage Given in 2.70081420 Gy (test code = 5712) Plan ID (test code = Subcarina 5713) Fractions Treated to Date (test code = 5715) Prescribed Dose Per 2 Fraction in Gy (test code = 5716) Prescription Dose in cGy 6000 (test code = 5717) [facility] DAILY [id number] 20:08:59 Test Item Value Reference Range Interpretation [...] = 5710) Dosage Given to Date in 60.0434854 Gy (test code = 5711) Session Dosage Given in 2.45964849 Gy (test code = 5712) Plan ID (test code = Subcarina 5713) Fractions Treated to 30 Date (test code = 5715) Prescribed Dose Per 2 Fraction in Gy (test code = 5716) Prescription Dose in cGy 6000 (test code = 5717) [facility] DAILY [id number] 17:27:33 Test Item Value Reference Range Interpretation [...] = 5710) Dosage Given to Date in 58.55393113 Gy (test code = 5711) Session Dosage Given in 2.90405069 Gy (test code = 5712) Plan ID (test code = Subcarina 5713) Fractions Treated to Date (test code = 5715) Prescribed Dose Per 2 Fraction in Gy (test code = 5716) Prescription Dose in cGy 6000 (test code = 5717) [facility] DAILY [id number] 17:27:33 Test Item Value Reference Range Interpretation [...] = 5710) Dosage Given to Date in 58.59470042 Gy (test code = 5711) Session Dosage Given in 2.75183541 Gy (test code = 5712) Plan ID (test code = Subcarina 5713) Fractions Treated to 30 Date (test code = 5715) Prescribed Dose Per 2 Fraction in Gy (test code = 5716) Prescription Dose in cGy 6000 (test code = 5717) [facility] ONC DAILY [id number] 17:27:33 Test Item Value Reference Range Interpretation [...] = 5710) Dosage Given to Date in 58.27387550 Gy (test code = 5711) Session Dosage Given in 2.88922738 Gy (test code = 5712) Plan ID (test code = Subcarina 5713) Fractions Treated to Date (test code = 5715) Prescribed Dose Per 2 Fraction in Gy (test code = 5716) Prescription Dose in cGy 6000 (test code = 5717) [facility] DAILY [id number] 18:20:49 Test Item Value Reference Range Interpretation [...] = 5710) Dosage Given to Date in 56.75218016 Gy (test code = 5711) Session Dosage Given in 2.67423942 Gy (test code = 5712) Plan ID (test code = Subcarina 5713) Fractions Treated to Date (test code = 5715) Prescribed Dose Per 2 Fraction in Gy (test code = 5716) Prescription Dose in cGy 6000 (test code = 5717) [facility] [place] DAILY [id number] 18:20:49 Test Item Value Reference Range Interpretation [...] = 5710) Dosage Given to Date in 56.83330295 Gy (test code = 5711) Session Dosage Given in 2.91235217 Gy (test code = 5712) Plan ID (test code = Subcarina [id number]) Fractions Treated to Date (test code = 5715) Prescribed Dose Per 2 Fraction in Gy (test code = 5716) Prescription Dose in cGy 6000 (test code = 5717) [facility] [place] DAILY [id number] 18:20:49 Test Item Value Reference Range Interpretation [...] = 5710) Dosage Given to Date in 56.54683139 Gy (test code = 5711) Session Dosage Given in 2.85300667 Gy (test code = 5712) Plan ID (test code = Subcarina 5713) Fractions Treated to Date (test code = 5715) Prescribed Dose Per 2 Fraction in Gy (test code = 5716) Prescription Dose in cGy 6000 (test code = 5717) [facility] [id number] 18:51:26 Test Item Value Reference Range Interpretation [...] = 5710) Dosage Given to Date in 54.25261424 Gy (test code = 5711) Session Dosage Given in 2.28831831 Gy (test code = 5712) Plan ID (test code = Subcarina 5713) Fractions Treated to Date (test code = 5715) Prescribed Dose Per 2 Fraction in Gy (test code = 5716) Prescription Dose in cGy 6000 (test code = 5717) [facility] [id number] 18:51:26 Test Item Value Reference Range Interpretation [...] = 5710) Dosage Given to Date in 54.24638050 Gy (test code = 5711) Session Dosage Given in 2.45980843 Gy (test code = 5712) Plan ID (test code = Subcarina 5713) Fractions Treated to Date (test code = 5715) Prescribed Dose Per 2 Fraction in Gy (test code = 5716) Prescription Dose in cGy 6000 (test code = 5717) [facility] [id number] 18:51:26 Test Item Value Reference Range Interpretation [...] = 5710) Dosage Given to Date in 54.75872669 Gy (test code = 5711) Session Dosage Given in 2.38797662 Gy (test code = 5712) Plan ID (test code = Subcarina 5713) Fractions Treated to Date (test code = 5715) Prescribed Dose Per 2 Fraction in Gy (test code = 5716) Prescription Dose in cGy 6000 (test code = 5717) [facility] [id number] 18:43:10 Test Item Value Reference Range Interpretation [...] = 5710) Dosage Given to Date in 52.67268430 Gy (test code = 5711) Session Dosage Given in 2.41596826 Gy (test code = 5712) Plan ID (test code = Subcarina 5713) Fractions Treated to Date (test code = 5715) Prescribed Dose Per 2 Fraction in Gy (test code = 5716) Prescription Dose in cGy 6000 (test code = 5717) [facility] [id number] 18:43:10 Test Item Value Reference Range Interpretation [...] = 5710) Dosage Given to Date in 52.97380908 Gy (test code = 5711) Session Dosage Given in 2.83275870 Gy (test code = 5712) Plan ID (test code = Subcarina 5713) Fractions Treated to Date (test code = 5715) Prescribed Dose Per 2 Fraction in Gy (test code = 5716) Prescription Dose in cGy 6000 (test code = 5717) [facility] [id number] 18:43:10 Test Item Value Reference Range Interpretation [...] = 5710) Dosage Given to Date in 52.78698250 Gy (test code = 5711) Session Dosage Given in 2.57587031 Gy (test code = 5712) Plan ID (test code = Subcarina 5713) Fractions Treated to Date (test code = 5715) Prescribed Dose Per 2 Fraction in Gy (test code = 5716) Prescription Dose in cGy 6000 (test code = 5717) [facility] DAILY [id number] 20:31:22 Test Item Value Reference Range Interpretation [...] = 5710) Dosage Given to Date in 50.14942481 Gy (test code = 5711) Session Dosage Given in 2.65313600 Gy (test code = 5712) Plan ID (test code = Subcarina 5713) Fractions Treated to Date (test code = 5715) Prescribed Dose Per 2 Fraction in Gy (test code = 5716) Prescription Dose in cGy 6000 (test code = 5717) [facility] [id number] 20:31:22 Test Item Value Reference Range Interpretation [...] = 5710) Dosage Given to Date in 50.59699639 Gy (test code = 5711) Session Dosage Given in 2.44343596 Gy (test code = 5712) Plan ID (test code = Subcarina 5713) Fractions Treated to Date (test code = 5715) Prescribed Dose Per 2 Fraction in Gy (test code = 5716) Prescription Dose in cGy 6000 (test code = 5717) [facility] [id number] 20:31:22 Test Item Value Reference Range Interpretation [...] = 5710) Dosage Given to Date in 50.00744107 Gy (test code = 5711) Session Dosage Given in 2.38041139 Gy (test code = 5712) Plan ID (test code = Subcarina 5713) Fractions Treated to Date (test code = 5715) Prescribed Dose Per 2 Fraction in Gy (test code = 5716) Prescription Dose in cGy 6000 (test code = 5717) [facility] [id number] 17:08:15 Test Item Value Reference Range Interpretation [...] = 5710) Dosage Given to Date in 48.02887682 Gy (test code = 5711) Session Dosage Given in 2.80015275 Gy (test code = 5712) Plan ID (test code = Subcarina 5713) Fractions Treated to Date (test code = 5715) Prescribed Dose Per 2 Fraction in Gy (test code = 5716) Prescription Dose in cGy 6000 (test code = 5717) [facility] [id number] 17:08:15 Test Item Value Reference Range Interpretation [...] = 5710) Dosage Given to Date in 48.30677983 Gy (test code = 5711) Session Dosage Given in 2.28459123 Gy (test code = 5712) Plan ID (test code = Subcarina 5713) Fractions Treated to Date (test code = 5715) Prescribed Dose Per 2 Fraction in Gy (test code = 5716) Prescription Dose in cGy 6000 (test code = 5717) [facility] [id number] 17:08:15 Test Item Value Reference Range Interpretation [...] = 5710) Dosage Given to Date in 48.54229849 Gy (test code = 5711) Session Dosage Given in 2.77017853 Gy (test code = 5712) Plan ID (test code = Subcarina 5713) Fractions Treated to Date (test code = 5715) Prescribed Dose Per 2 Fraction in Gy (test code = 5716) Prescription Dose in cGy 6000 (test code = 5717) [facility] [id number] 20:03:00 Test Item Value Reference Range Interpretation [...] = 5710) Dosage Given to Date in 46.55609161 Gy (test code = 5711) Session Dosage Given in 2.24645716 Gy (test code = 5712) Plan ID (test code = Subcarina 5713) Fractions Treated to Date (test code = 5715) Prescribed Dose Per 2 Fraction in Gy (test code = 5716) Prescription Dose in cGy 6000 (test code = 5717) [facility] [id number] 20:03:00 Test Item Value Reference Range Interpretation [...] = 5710) Dosage Given to Date in 46.73694852 Gy (test code = 5711) Session Dosage Given in 2.88071999 Gy (test code = 5712) Plan ID (test code = Subcarina 5713) Fractions Treated to Date (test code = 5715) Prescribed Dose Per 2 Fraction in Gy (test code = 5716) Prescription Dose in cGy 6000 (test code = 5717) [facility] [id number] 20:03:00 Test Item Value Reference Range Interpretation [...] = 5710) Dosage Given to Date in 46.94055482 Gy (test code = 5711) Session Dosage Given in 2.97185594 Gy (test code = 5712) Plan ID (test code = Subcarina 5713) Fractions Treated to Date (test code = 5715) Prescribed Dose Per 2 Fraction in Gy (test code = 5716) Prescription Dose in cGy 6000 (test code = 5717) [facility] [id number] 18:57:31 Test Item Value Reference Range Interpretation [...] = 5710) Dosage Given to Date in 44.05111572 Gy (test code = 5711) Session Dosage Given in 2.87149622 Gy (test code = 5712) Plan ID (test code = Subcarina 5713) Fractions Treated to Date (test code = 5715) Prescribed Dose Per 2 Fraction in Gy (test code = 5716) Prescription Dose in cGy 6000 (test code = 5717) [facility] [id number] 18:57:31 Test Item Value Reference Range Interpretation [...] = 5710) Dosage Given to Date in 44.85886072 Gy (test code = 5711) Session Dosage Given in 2.90947337 Gy (test code = 5712) Plan ID (test code = Subcarina 5713) Fractions Treated to Date (test code = 5715) Prescribed Dose Per 2 Fraction in Gy (test code = 5716) Prescription Dose in cGy 6000 (test code = 5717) [facility] [id number] 18:57:31 Test Item Value Reference Range Interpretation [...] = 5710) Dosage Given to Date in 44.64784394 Gy (test code = 5711) Session Dosage Given in 2.37449619 Gy (test code = 5712) Plan ID (test code = Subcarina 5713) Fractions Treated to Date (test code = 5715) Prescribed Dose Per 2 Fraction in Gy (test code = 5716) Prescription Dose in cGy 6000 (test code = 5717) [facility] [id number] 19:29:30 Test Item Value Reference Range Interpretation [...] = 5710) Dosage Given to Date in 42.87712981 Gy (test code = 5711) Session Dosage Given in 2.33564492 Gy (test code = 5712) Plan ID (test code = Subcarina 5713) Fractions Treated to Date (test code = 5715) Prescribed Dose Per 2 Fraction in Gy (test code = 5716) Prescription Dose in cGy 6000 (test code = 5717) [facility] [id number] 19:29:30 Test Item Value Reference Range Interpretation [...] = 5710) Dosage Given to Date in 42.72675485 Gy (test code = 5711) Session Dosage Given in 2.53378789 Gy (test code = 5712) Plan ID (test code = Subcarina 5713) Fractions Treated to Date (test code = 5715) Prescribed Dose Per 2 Fraction in Gy (test code = 5716) Prescription Dose in cGy 6000 (test code = 5717) [facility] [id number] 19:29:30 Test Item Value Reference Range Interpretation [...] = 5710) Dosage Given to Date in 42.58142663 Gy (test code = 5711) Session Dosage Given in 2.10786985 Gy (test code = 5712) Plan ID (test code = Subcarina 5713) Fractions Treated to Date (test code = 5715) Prescribed Dose Per 2 Fraction in Gy (test code = 5716) Prescription Dose in cGy 6000 (test code = 5717) [facility] [id number] 18:24:12 Test Item Value Reference Range Interpretation [...] = 5710) Dosage Given to Date in 40.2184881 Gy (test code = 5711) Session Dosage Given in 2.38657812 Gy (test code = 5712) Plan ID (test code = Subcarina 5713) Fractions Treated to Date (test code = 5715) Prescribed Dose Per 2 Fraction in Gy (test code = 5716) Prescription Dose in cGy 6000 (test code = 5717) [facility] [id number] 18:24:12 Test Item Value Reference Range Interpretation [...] = 5710) Dosage Given to Date in 40.8463214 Gy (test code = 5711) Session Dosage Given in 2.43667856 Gy (test code = 5712) Plan ID (test code = Subcarina 5713) Fractions Treated to Date (test code = 5715) Prescribed Dose Per 2 Fraction in Gy (test code = 5716) Prescription Dose in cGy 6000 (test code = 5717) [facility] [id number] 18:24:12 Test Item Value Reference Range Interpretation [...] = 5710) Dosage Given to Date in 40.9103598 Gy (test code = 5711) Session Dosage Given in 2.36977839 Gy (test code = 5712) Plan ID (test code = Subcarina 5713) Fractions Treated to Date (test code = 5715) Prescribed Dose Per 2 Fraction in Gy (test code = 5716) Prescription Dose in cGy 6000 (test code = 5717) [facility] [id number] 19:46:04 Test Item Value Reference Range Interpretation [...] = 5710) Dosage Given to Date in 38.60829136 Gy (test code = 5711) Session Dosage Given in 2.60497397 Gy (test code = 5712) Plan ID (test code = Subcarina 5713) Fractions Treated to Date (test code = 5715) Prescribed Dose Per 2 Fraction in Gy (test code = 5716) Prescription Dose in cGy 6000 (test code = 5717) [facility] [id number] 19:46:04 Test Item Value Reference Range Interpretation [...] = 5710) Dosage Given to Date in 38.20864488 Gy (test code = 5711) Session Dosage Given in 2.32554643 Gy (test code = 5712) Plan ID (test code = Subcarina 5713) Fractions Treated to Date (test code = 5715) Prescribed Dose Per 2 Fraction in Gy (test code = 5716) Prescription Dose in cGy 6000 (test code = 5717) [facility] [id number] 19:46:04 Test Item Value Reference Range Interpretation [...] = 5710) Dosage Given to Date in 38.37777433 Gy (test code = 5711) Session Dosage Given in 2.51663587 Gy (test code = 5712) Plan ID (test code = Subcarina 5713) Fractions Treated to Date (test code = 5715) Prescribed Dose Per 2 Fraction in Gy (test code = 5716) Prescription Dose in cGy 6000 (test code = 5717) [facility] [id number] 20:13:22 Test Item Value Reference Range Interpretation Comments Course ID (test code = C3 5706) Course Start Date (test 2022-01-18 @16:41 code = 5707) Treatment Elapsed Days 23 (test code = 5709) Course Intent (test code Curative = 5686) Treatment Dates (test First Treatment Date: code = 568) 2022-02-05 @16:32Last Treatment Date: 2022-02-28 @15:11 Reference Point ID (test Subcarina code = 5710) Dosage Given to Date in 36.56253891 Gy (test code = 5711) Session Dosage Given in 2.43859883 Gy (test code = 5712) Plan ID (test code = Subcarina 5713) Fractions Treated to Date (test code = 5715) Prescribed Dose Per 2 Fraction in Gy (test code = 5716) Prescription Dose in cGy 6000 (test code = 5717) [facility] DA[facility] [id number] 20:13:22 Test Item Value Reference Range Interpretation [...] = 5710) Dosage Given to Date in 36.90528339 Gy (test code = 5711) Session Dosage Given in 2.25539372 Gy (test code = 5712) Plan ID (test code = Subcarina 5713) Fractions Treated to Date (test code = 5715) Prescribed Dose Per 2 Fraction in Gy (test code = 5716) Prescription Dose in cGy 6000 (test code = 5717) [facility] [id number] 20:13:22 Test Item Value Reference Range Interpretation [...] = 5710) Dosage Given to Date in 36.01815096 Gy (test code = 5711) Session Dosage Given in 2.16499199 Gy (test code = 5712) Plan ID (test code = Subcarina 5713) Fractions Treated to Date (test code = 5715) Prescribed Dose Per 2 Fraction in Gy (test code = 5716) Prescription Dose in cGy 6000 (test code = 5717) [facility] [id number] 20:28:42 Test Item Value Reference Range Interpretation [...] = 5710) Dosage Given to Date in 34.02096596 Gy (test code = 5711) Session Dosage Given in 2.42924216 Gy (test code = 5712) Plan ID (test code = Subcarina 5713) Fractions Treated to Date (test code = 5715) Prescribed Dose Per 2 Fraction in Gy (test code = 5716) Prescription Dose in cGy 6000 (test code = 5717) [facility] [id number] 20:28:42 Test Item Value Reference Range Interpretation [...] = 5710) Dosage Given to Date in 34.35351476 Gy (test code = 5711) Session Dosage Given in 2.88480431 Gy (test code = 5712) Plan ID (test code = Subcarina 5713) Fractions Treated to Date (test code = 5715) Prescribed Dose Per 2 Fraction in Gy (test code = 5716) Prescription Dose in cGy 6000 (test code = 5717) [facility] [id number] 20:28:42 Test Item Value Reference Range Interpretation [...] = 5710) Dosage Given to Date in 34.65167472 Gy (test code = 5711) Session Dosage Given in 2.41258902 Gy (test code = 5712) Plan ID (test code = Subcarina 5713) Fractions Treated to Date (test code = 5715) Prescribed Dose Per 2 Fraction in Gy (test code = 5716) Prescription Dose in cGy 6000 (test code = 5717) [facility] [id number] 20:36:08 Test Item Value Reference Range Interpretation [...] = 5710) Dosage Given to Date in 32.57469300 Gy (test code = 5711) Session Dosage Given in 2.44824996 Gy (test code = 5712) Plan ID (test code = Subcarina 5713) Fractions Treated to Date (test code = 5715) Prescribed Dose Per 2 Fraction in Gy (test code = 5716) Prescription Dose in cGy 6000 (test code = 5717) [facility] [id number] 20:36:08 Test Item Value Reference Range Interpretation [...] = 5710) Dosage Given to Date in 32.27021065 Gy (test code = 5711) Session Dosage Given in 2.39110987 Gy (test code = 5712) Plan ID (test code = Subcarina 5713) Fractions Treated to Date (test code = 5715) Prescribed Dose Per 2 Fraction in Gy (test code = 5716) Prescription Dose in cGy 6000 (test code = 5717) [facility] [id number] 20:36:08 Test Item Value Reference Range Interpretation [...] = 5710) Dosage Given to Date in 32.87087306 Gy (test code = 5711) Session Dosage Given in 2.43427139 Gy (test code = 5712) Plan ID (test code = Subcarina 5713) Fractions Treated to Date (test code = 5715) Prescribed Dose Per 2 Fraction in Gy (test code = 5716) Prescription Dose in cGy 6000 (test code = 5717) [facility] [id number] 19:36:27 Test Item Value Reference Range Interpretation [...] = 5710) Dosage Given to Date in 30.85580281 Gy (test code = 5711) Session Dosage Given in 2.11718667 Gy (test code = 5712) Plan ID (test code = Subcarina 5713) Fractions Treated to Date (test code = 5715) Prescribed Dose Per 2 Fraction in Gy (test code = 5716) Prescription Dose in cGy 6000 (test code = 5717) [facility] [id number] 19:36:27 Test Item Value Reference Range Interpretation [...] = 5710) Dosage Given to Date in 30.25538246 Gy (test code = 5711) Session Dosage Given in 2.17098569 Gy (test code = 5712) Plan ID (test code = Subcarina 5713) Fractions Treated to 30 Date (test code = 5715) Prescribed Dose Per 2 Fraction in Gy (test code = 5716) Prescription Dose in cGy 6000 (test code = 5717) [facility] [id number] 19:36:27 Test Item Value Reference Range Interpretation [...] = 5710) Dosage Given to Date in 30.14909899 Gy (test code = 5711) Session Dosage Given in 2.94864859 Gy (test code = 5712) Plan ID (test code = Subcarina 5713) Fractions Treated to Date (test code = 5715) Prescribed Dose Per 2 Fraction in Gy (test code = 5716) Prescription Dose in cGy 6000 (test code = 5717) [facility] [id number] 20:26:13 Test Item Value Reference Range Interpretation [...] = 5710) Dosage Given to Date in 28.04023446 Gy (test code = 5711) Session Dosage Given in 2.71052043 Gy (test code = 5712) Plan ID (test code = Subcarina 5713) Fractions Treated to Date (test code = 5715) Prescribed Dose Per 2 Fraction in Gy (test code = 5716) Prescription Dose in cGy 6000 (test code = 5717) [facility] [id number] 20:26:13 Test Item Value Reference Range Interpretation [...] = 5710) Dosage Given to Date in 28.48712019 Gy (test code = 5711) Session Dosage Given in 2.58894235 Gy (test code = 5712) Plan ID (test code = Subcarina 5713) Fractions Treated to Date (test code = 5715) Prescribed Dose Per 2 Fraction in Gy (test code = 5716) Prescription Dose in cGy 6000 (test code = 5717) [facility] [id number] 20:26:13 Test Item Value Reference Range Interpretation [...] = 5710) Dosage Given to Date in 28.75182702 Gy (test code = 5711) Session Dosage Given in 2.61506842 Gy (test code = 5712) Plan ID (test code = Subcarina 5713) Fractions Treated to Date (test code = 5715) Prescribed Dose Per 2 Fraction in Gy (test code = 5716) Prescription Dose in cGy 6000 (test code = 5717) [facility] [id number] 20:31:32 Test Item Value Reference Range Interpretation [...] = 5710) Dosage Given to Date in 26.81532544 Gy (test code = 5711) Session Dosage Given in 2.39576541 Gy (test code = 5712) Plan ID (test code = Subcarina 5713) Fractions Treated to Date (test code = 5715) Prescribed Dose Per 2 Fraction in Gy (test code = 5716) Prescription Dose in cGy 6000 (test code = 5717) [facility] DAILY [id number] 20:31:32 Test Item Value Reference Range Interpretation [...] = 5710) Dosage Given to Date in 26.40794304 Gy (test code = 5711) Session Dosage Given in 2.85802114 Gy (test code = 5712) Plan ID (test code = Subcarina 5713) Fractions Treated to Date (test code = 5715) Prescribed Dose Per 2 Fraction in Gy (test code = 5716) Prescription Dose in cGy 6000 (test code = 5717) [facility] DA[facility] [id number] 20:31:32 Test Item Value Reference Range Interpretation [...] = 5710) Dosage Given to Date in 26.96904056 Gy (test code = 5711) Session Dosage Given in 2.84246933 Gy (test code = 5712) Plan ID (test code = Subcarina 5713) Fractions Treated to Date (test code = 5715) Prescribed Dose Per 2 Fraction in Gy (test code = 5716) Prescription Dose in cGy 6000 (test code = 5717) [facility] DAILY [id number] 20:27:20 Test Item Value Reference Range Interpretation [...] = 5710) Dosage Given to Date in 24.08563434 Gy (test code = 5711) Session Dosage Given in 2.79341538 Gy (test code = 5712) Plan ID (test code = Subcarina 5713) Fractions Treated to Date (test code = 5715) Prescribed Dose Per 2 Fraction in Gy (test code = 5716) Prescription Dose in cGy 6000 (test code = 5717) [facility] [id number] 20:27:20 Test Item Value Reference Range Interpretation [...] = 5710) Dosage Given to Date in 24.31203990 Gy (test code = 5711) Session Dosage Given in 2.80705211 Gy (test code = 5712) Plan ID (test code = Subcarina 5713) Fractions Treated to Date (test code = 5715) Prescribed Dose Per 2 Fraction in Gy (test code = 5716) Prescription Dose in cGy 6000 (test code = 5717) [facility] [id number] 20:27:20 Test Item Value Reference Range Interpretation [...] = 5710) Dosage Given to Date in 24.50076759 Gy (test code = 5711) Session Dosage Given in 2.30890071 Gy (test code = 5712) Plan ID (test code = Subcarina 5713) Fractions Treated to Date (test code = 5715) Prescribed Dose Per 2 Fraction in Gy (test code = 5716) Prescription Dose in cGy 6000 (test code = 5717) [facility] [id number] 22:25:50 Test Item Value Reference Range Interpretation [...] = 5710) Dosage Given to Date in 22.64733649 Gy (test code = 5711) Session Dosage Given in 2.28436061 Gy (test code = 5712) Plan ID (test code = Subcarina 5713) Fractions Treated to Date (test code = 5715) Prescribed Dose Per 2 Fraction in Gy (test code = 5716) Prescription Dose in cGy 6000 (test code = 5717) [facility] [id number] 22:25:50 Test Item Value Reference Range Interpretation [...] = 5710) Dosage Given to Date in 22.93040637 Gy (test code = 5711) Session Dosage Given in 2.94928075 Gy (test code = 5712) Plan ID (test code = Subcarina 5713) Fractions Treated to Date (test code = 5715) Prescribed Dose Per 2 Fraction in Gy (test code = 5716) Prescription Dose in cGy 6000 (test code = 5717) [facility] DAILY [id number] 22:25:50 Test Item Value Reference Range Interpretation [...] = 5710) Dosage Given to Date in 22.88856397 Gy (test code = 5711) Session Dosage Given in 2.57628152 Gy (test code = 5712) Plan ID (test code = Subcarina 5713) Fractions Treated to Date (test code = 5715) Prescribed Dose Per 2 Fraction in Gy (test code = 5716) Prescription Dose in cGy 6000 (test code = 5717) [facility] DAILY [id number] 20:27:27 Test Item Value Reference Range Interpretation [...] = 5710) Dosage Given to Date in 20.9967517 Gy (test code = 5711) Session Dosage Given in 2.30759444 Gy (test code = 5712) Plan ID (test code = Subcarina 5713) Fractions Treated to Date (test code = 5715) Prescribed Dose Per 2 Fraction in Gy (test code = 5716) Prescription Dose in cGy 6000 (test code = 5717) [facility] DAILY [id number] 20:27:27 Test Item Value Reference Range Interpretation [...] = 5710) Dosage Given to Date in 20.2777735 Gy (test code = 5711) Session Dosage Given in 2.70935355 Gy (test code = 5712) Plan ID (test code = Subcarina 5713) Fractions Treated to Date (test code = 5715) Prescribed Dose Per 2 Fraction in Gy (test code = 5716) Prescription Dose in cGy 6000 (test code = 5717) [facility] DAILY [id number] 20:27:27 Test Item Value Reference Range Interpretation [...] = 5710) Dosage Given to Date in 20.8025935 Gy (test code = 5711) Session Dosage Given in 2.17633513 Gy (test code = 5712) Plan ID (test code = Subcarina 5713) Fractions Treated to Date (test code = 5715) Prescribed Dose Per 2 Fraction in Gy (test code = 5716) Prescription Dose in cGy 6000 (test code = 5717) [facility] DAILY [id number] 20:09:22 Test Item Value Reference Range Interpretation [...] = 5710) Dosage Given to Date in 18.49202083 Gy (test code = 5711) Session Dosage Given in 2.73758329 Gy (test code = 5712) Plan ID (test code = Subcarina 5713) Fractions Treated to Date (test code = 5715) Prescribed Dose Per 2 Fraction in Gy (test code = 5716) Prescription Dose in cGy 6000 (test code = 5717) [facility] DAILY [id number] 20:09:22 Test Item Value Reference Range Interpretation [...] = 5710) Dosage Given to Date in 18.20831416 Gy (test code = 5711) Session Dosage Given in 2.75414775 Gy (test code = 5712) Plan ID (test code = Subcarina 5713) Fractions Treated to Date (test code = 5715) Prescribed Dose Per 2 Fraction in Gy (test code = 5716) Prescription Dose in cGy 6000 (test code = 5717) [facility] DAILY [id number] 20:09:22 Test Item Value Reference Range Interpretation [...] = 5710) Dosage Given to Date in 18.18047647 Gy (test code = 5711) Session Dosage Given in 2.08862219 Gy (test code = 5712) Plan ID (test code = Subcarina 5713) Fractions Treated to Date (test code = 5715) Prescribed Dose Per 2 Fraction in Gy (test code = 5716) Prescription Dose in cGy 6000 (test code = 5717) [facility] ONC DAILY [id number] 20:31:50 Test Item Value Reference Range Interpretation [...] = 5710) Dosage Given to Date in 16.84788413 Gy (test code = 5711) Session Dosage Given in 2.76269800 Gy (test code = 5712) Plan ID (test code = Subcarina 5713) Fractions Treated to 30 Date (test code = 5715) Prescribed Dose Per 2 Fraction in Gy (test code = 5716) Prescription Dose in cGy 6000 (test code = 5717) [facility] DAILY [id number] 20:31:50 Test Item Value Reference Range Interpretation [...] = 5710) Dosage Given to Date in 16.06454709 Gy (test code = 5711) Session Dosage Given in 2.59768845 Gy (test code = 5712) Plan ID (test code = Subcarina 5713) Fractions Treated to 30 Date (test code = 5715) Prescribed Dose Per 2 Fraction in Gy (test code = 5716) Prescription Dose in cGy 6000 (test code = 5717) [facility] ON[facility] DAILY [id number] 20:31:50 Test Item Value Reference Range Interpretation [...] = 5710) Dosage Given to Date in 16.72785453 Gy (test code = 5711) Session Dosage Given in 2.17788969 Gy (test code = 5712) Plan ID (test code = Subcarina 5713) Fractions Treated to Date (test code = 5715) Prescribed Dose Per 2 Fraction in Gy (test code = 5716) Prescription Dose in cGy 6000 (test code = 5717) [facility] DAILY [id number] 18:38:55 Test Item Value Reference Range Interpretation [...] = 5710) Dosage Given to Date in 14.53841448 Gy (test code = 5711) Session Dosage Given in 2.33368474 Gy (test code = 5712) Plan ID (test code = Subcarina 5713) Fractions Treated to Date (test code = 5715) Prescribed Dose Per 2 Fraction in Gy (test code = 5716) Prescription Dose in cGy 6000 (test code = 5717) [facility] DAILY [id number] 18:38:55 Test Item Value Reference Range Interpretation [...] = 5710) Dosage Given to Date in 14.17068347 Gy (test code = 5711) Session Dosage Given in 2.47794979 Gy (test code = 5712) Plan ID (test code = Subcarina 5713) Fractions Treated to Date (test code = 5715) Prescribed Dose Per 2 Fraction in Gy (test code = 5716) Prescription Dose in cGy 6000 (test code = 5717) [facility] DAILY [id number] 18:38:55 Test Item Value Reference Range Interpretation [...] = 5710) Dosage Given to Date in 14.19034346 Gy (test code = 5711) Session Dosage Given in 2.18023477 Gy (test code = 5712) Plan ID (test code = Subcarina 5713) Fractions Treated to Date (test code = 5715) Prescribed Dose Per 2 Fraction in Gy (test code = 5716) Prescription Dose in cGy 6000 (test code = 5717) [facility] DAILY [id number] 20:16:34 Test Item Value Reference Range Interpretation [...] = 5710) Dosage Given to Date in 12.52030542 Gy (test code = 5711) Session Dosage Given in 2.60857470 Gy (test code = 5712) Plan ID (test code = Subcarina 5713) Fractions Treated to Date (test code = 5715) Prescribed Dose Per 2 Fraction in Gy (test code = 5716) Prescription Dose in cGy 6000 (test code = 5717) [facility] DAILY [id number] 20:16:34 Test Item Value Reference Range Interpretation [...] = 5710) Dosage Given to Date in 12.66858638 Gy (test code = 5711) Session Dosage Given in 2.20554201 Gy (test code = 5712) Plan ID (test code = Subcarina 5713) Fractions Treated to Date (test code = 5715) Prescribed Dose Per 2 Fraction in Gy (test code = 5716) Prescription Dose in cGy 6000 (test code = 5717) [facility] DAILY [id number] 20:16:34 Test Item Value Reference Range Interpretation [...] = 5710) Dosage Given to Date in 12.26498757 Gy (test code = 5711) Session Dosage Given in 2.64462309 Gy (test code = 5712) Plan ID (test code = Subcarina 5713) Fractions Treated to 30 Date (test code = 5715) Prescribed Dose Per 2 Fraction in Gy (test code = 5716) Prescription Dose in cGy 6000 (test code = 5717) [facility] DAILY [id number] 18:34:11 Test Item Value Reference Range Interpretation [...] = 5710) Dosage Given to Date in 10.93029015 Gy (test code = 5711) Session Dosage Given in 2.03191321 Gy (test code = 5712) Plan ID (test code = Subcarina 5713) Fractions Treated to 30 Date (test code = 5715) Prescribed Dose Per 2 Fraction in Gy (test code = 5716) Prescription Dose in cGy 6000 (test code = 5717) [facility] DAILY [id number] 18:34:11 Test Item Value Reference Range Interpretation [...] = 5710) Dosage Given to Date in 10.69833331 Gy (test code = 5711) Session Dosage Given in 2.29892508 Gy (test code = 5712) Plan ID (test code = Subcarina 5713) Fractions Treated to Date (test code = 5715) Prescribed Dose Per 2 Fraction in Gy (test code = 5716) Prescription Dose in cGy 6000 (test code = 5717) [facility] DAILY [id number] 18:34:11 Test Item Value Reference Range Interpretation [...] = 5710) Dosage Given to Date in 10.36085577 Gy (test code = 5711) Session Dosage Given in 2.14107224 Gy (test code = 5712) Plan ID (test code = Subcarina 5713) Fractions Treated to Date (test code = 5715) Prescribed Dose Per 2 Fraction in Gy (test code = 5716) Prescription Dose in cGy 6000 (test code = 5717) [facility] DAILY [id number] 20:19:58 Test Item Value Reference Range Interpretation [...] = 5710) Dosage Given to Date in 8.34802824 Gy (test code = 5711) Session Dosage Given in 2.40276949 Gy (test code = 5712) Plan ID (test code = Subcarina 5713) Fractions Treated to Date (test code = 5715) Prescribed Dose Per 2 Fraction in Gy (test code = 5716) Prescription Dose in cGy 6000 (test code = 5717) [facility] DAILY [id number] 20:19:58 Test Item Value Reference Range Interpretation [...] = 5710) Dosage Given to Date in 8.49801623 Gy (test code = 5711) Session Dosage Given in 2.84739973 Gy (test code = 5712) Plan ID (test code = Subcarina 5713) Fractions Treated to Date (test code = 5715) Prescribed Dose Per 2 Fraction in Gy (test code = 5716) Prescription Dose in cGy 6000 (test code = 5717) [facility] DAILY [id number] 20:19:58 Test Item Value Reference Range Interpretation [...] = 5710) Dosage Given to Date in 8.76060394 Gy (test code = 5711) Session Dosage Given in 2.87221595 Gy (test code = 5712) Plan ID (test code = Subcarina 5713) Fractions Treated to Date (test code = 5715) Prescribed Dose Per 2 Fraction in Gy (test code = 5716) Prescription Dose in cGy 6000 (test code = 5717) [facility] DAILY [id number] 20:02:52 Test Item Value Reference Range Interpretation [...] = 5710) Dosage Given to Date in 6.04241408 Gy (test code = 5711) Session Dosage Given in 2.05541103 Gy (test code = 5712) Plan ID (test code = Subcarina 5713) Fractions Treated to Date (test code = 5715) Prescribed Dose Per 2 Fraction in Gy (test code = 5716) Prescription Dose in cGy 6000 (test code = 5717) [facility] DAILY [id number] 20:02:52 Test Item Value Reference Range Interpretation [...] = 5710) Dosage Given to Date in 6.54463643 Gy (test code = 5711) Session Dosage Given in 2.10705338 Gy (test code = 5712) Plan ID (test code = Subcarina 5713) Fractions Treated to Date (test code = 5715) Prescribed Dose Per 2 Fraction in Gy (test code = 5716) Prescription Dose in cGy 6000 (test code = 5717) [facility] DAILY [id number] 20:02:52 Test Item Value Reference Range Interpretation [...] = 5710) Dosage Given to Date in 6.97469152 Gy (test code = 5711) Session Dosage Given in 2.73164392 Gy (test code = 5712) Plan ID (test code = Subcarina 5713) Fractions Treated to Date (test code = 5715) Prescribed Dose Per 2 Fraction in Gy (test code = 5716) Prescription Dose in cGy 6000 (test code = 5717) [facility] DAILY [id number] 21:37:52 Test Item Value Reference Range Interpretation [...] = 5710) Dosage Given to Date in 4.91486438 Gy (test code = 5711) Session Dosage Given in 2.14853074 Gy (test code = 5712) Plan ID (test code = Subcarina 5713) Fractions Treated to Date (test code = 5715) Prescribed Dose Per 2 Fraction in Gy (test code = 5716) Prescription Dose in cGy 6000 (test code = 5717) [facility] DAILY [id number] 21:37:52 Test Item Value Reference Range Interpretation [...] = 5710) Dosage Given to Date in 4.72767415 Gy (test code = 5711) Session Dosage Given in 2.50511464 Gy (test code = 5712) Plan ID (test code = Subcarina 5713) Fractions Treated to Date (test code = 5715) Prescribed Dose Per 2 Fraction in Gy (test code = 5716) Prescription Dose in cGy 6000 (test code = 5717) [facility] DAILY [id number] 21:37:52 Test Item Value Reference Range Interpretation [...] = 5710) Dosage Given to Date in 4.66229367 Gy (test code = 5711) Session Dosage Given in 2.33131921 Gy (test code = 5712) Plan ID (test code = Subcarina 5713) Fractions Treated to Date (test code = 5715) Prescribed Dose Per 2 Fraction in Gy (test code = 5716) Prescription Dose in cGy 6000 (test code = 5717) [facility] DAILY [id number] 21:43:41 Test Item Value Reference Range Interpretation [...] = 5710) Dosage Given to Date in 2.65502518 Gy (test code = 5711) Session Dosage Given in 2.25218314 Gy (test code = 5712) Plan ID (test code = Subcarina 5713) Fractions Treated to Date (test code = 5715) Prescribed Dose Per 2 Fraction in Gy (test code = 5716) Prescription Dose in cGy 6000 (test code = 5717) [facility] DAILY [id number] 21:43:41 Test Item Value Reference Range Interpretation [...] = 5710) Dosage Given to Date in 2.63906334 Gy (test code = 5711) Session Dosage Given in 2.12937639 Gy (test code = 5712) Plan ID (test code = Subcarina 5713) Fractions Treated to Date (test code = 5715) Prescribed Dose Per 2 Fraction in Gy (test code = 5716) Prescription Dose in cGy 6000 (test code = 5717) [facility] DAILY [id number] 21:43:41 Test Item Value Reference Range Interpretation [...] = 5710) Dosage Given to Date in 2.03291213 Gy (test code = 5711) Session Dosage Given in 2.79182150 Gy (test code = 5712) Plan ID (test code = Subcarina 5713) Fractions Treated to Date (test code = 5715) Prescribed Dose Per 2 Fraction in Gy (test code = 5716) Prescription Dose in cGy 6000 (test code = 5717) [facility] [id number] 12:55:00 Test Item Value Reference Range Interpretation Comments POC glucose (test code 112 mg/dL 65-99 H [employer] Name: Casanova = [id number]) BlaineDevice ID : [id number] able: [facility] Notified building energy consultant Interpretation Abnormal (test code = 42110-0) [facility] ONC COURSE [id number] 19:56:56 Test Item Value Reference Range Interpretation [...] Dose in cGy (test code = 5717) [facility] DAILY [id number] 13:24:35 Test Item Value Reference Range Interpretation [...] code = 5717) [facility] DAILY [id number] 16:45:25 Test Item Value Reference Range Interpretation [...] code = 5717) [facility] DAILY [id number] 16:45:46 Test Item Value Reference Range Interpretation [...] = Boost 5713) Fractions Treated to 8 of 10 Date (test code = 5715) Prescribed Dose Per Fraction in Gy (test code = 5716) Prescription Dose in cGy (test code = 5717) [facility] ON[facility] DAILY [id number] 17:14:34 Test Item Value Reference Range Interpretation [...] Dose in cGy (test code = 5717) [facility] DAILY [id number] 17:29:35 Test Item Value Reference Range Interpretation [...] Dose in cGy (test code = 5717) [facility] DAILY [id number] 13:11:43 Test Item Value Reference Range Interpretation [...] code = 5717) [facility] DAILY [id number] 16:51:36 Test Item Value Reference Range Interpretation [...] code = 5717) [facility] DAILY [id number] 17:37:41 Test Item Value Reference Range Interpretation [...] Dose in cGy (test code = 5717) [facility] DAILY [id number] 17:27:38 Test Item Value Reference Range Interpretation [...] code = 5717) [facility] DAILY [id number] 17:41:13 Test Item Value Reference Range Interpretation [...] = Boost 5713) Fractions Treated to 1 10 Date (test code = 5715) Prescribed Dose Per Fraction in Gy (test code = 5716) Prescription Dose in cGy (test code = 5717) [facility] DAILY [id number] 16:18:41 Test Item Value Reference Range Interpretation [...] code = 5717) [facility] DAILY [id number] 17:12:42 Test Item Value Reference Range Interpretation [...] code = 5717) [facility] DAILY [id number] 16:46:28 Test Item Value Reference Range Interpretation [...] Dose in cGy (test code = 5717) [facility] ON[facility] DAILY [id number] 16:52:47 Test Item Value Reference Range Interpretation [...] code = 5717) [facility] DAILY [id number] 13:51:59 Test Item Value Reference Range Interpretation [...] code = 5717) [facility] DAILY [id number] 16:51:51 Test Item Value Reference Range Interpretation [...] code = 5717) [facility] DAILY [id number] 17:12:14 Test Item Value Reference Range Interpretation [...] code = 5717) [facility] DAILY [id number] 16:14:16 Test Item Value Reference Range Interpretation [...] Dose in cGy (test code = 5717) [facility] [id number] 21:51:17 Test Item Value Reference Range Interpretation [...] Dose in cGy (test code = 5717) [facility] ([facility]OVID-19) RNA [Presence] in Respiratory specimen by JOANN with probe [id number] 02:53:28 Test Item Value Reference Range Interpretation Comments SARS-CoV-2 (COVID-19) RNA Not detected Not-Detected [Presence] in Respiratory specimen by JOANN with probe detection (test code = 84658-8) Whether patient is employed in a healthcare setting (test code = 18565-9) Whether the patient has symptoms related to condition of interest (test code = 13979-8) Patient was hospitalized because of this condition (test code = 21891-3) Whether the patient was admitted to intensive care unit (ICU) for condition of interest (test code = 23490-5) Whether patient resides in a congregate care setting (test code = 35117-2) [facility] 12 [id number] 02:03:24 Test Item Value Reference Range Interpretation Comments Ventricular rate (test code = 253) Atrial rate (test code = 255) NM interval (test code = 266) QRSD interval [...] 25-JAN-2021 11:45,-premature atrial complexes are now present[facility] [id number] 14:12:43 Test Item Value Reference Range Interpretation [...] Dose in cGy (test code = 5717) [facility] [id number] 00:18:32 Test Item Value Reference Range Interpretation Comments Case number (test code = [id number]) Cytology See link below for (non-gynecological) PDF Lab Report report (test code = 1178) Result status (test code This is Final Report = [id number]) [facility] [id number] [facility] [id number] 16:51:00 Test Item Value Reference Range Interpretation Comments ABO grouping (test code = 883-9) A Rh type (test code = 75401-6) [facility] [id number] 18:41:00 Test Item Value Reference Range Interpretation Comments ABO grouping (test code = 883-9) A Rh type (test code = 91446-7) POS Antibody screen (gel) (test code = NEG 890-4) Karly WoodyARS-CoV-2 (COVID-19) RNA [Presence] in Respiratory specimen by JOANN with probe [id number] 17:58:19 Test Item Value Reference Range Interpretation Comments SARS-CoV-2 (COVID-19) RNA Not detected Not-Detected [Presence] in Respiratory specimen by JOANN with probe detection (test code = 53532-1) Whether patient is employed in a healthcare setting (test code = 67194-6) Whether the patient has symptoms related to condition of interest (test code = 36392-3) Patient was hospitalized because of this condition (test code = 95610-0) Whether the patient was admitted to intensive care unit (ICU) for condition of interest (test code = 60667-9) Whether patient resides in a congregate care setting (test code = 02806-1) [facility]
[2022-11-13 16:22] LABS: Absolute Lymphocytes (CBC) 0.7 K/uL (0.7-4.9); Lymphocytes % 15.1 % (15.3-44.8); MCV 96.8 fL (80-100)
[2022-11-13 16:27] LABS: Protime INR 0.94
[2022-11-13 16:37] LABS: ALT/SGPT 25 U/L (13-56); AST/SGOT 14 U/L (15-37); Alkaline Phosphatase 99 U/L (45-117); BUN Blood Urea Nitrogen 21 mg/dL (7-18); Bicarbonate 33 mEq/L (21-32); Bilirubin Total 0.3 mg/dL (0.2-1.0); Glomerular Filtration Rate 99 ml/min (=/>90); Glucose Level 90 mg/dL (74-106); Magnesium 2.5 mg/dL (1.6-2.4); Potassium 3.3 mEq/L (3.5-5.1); Protein, Total 6.6 g/dL (6.4-8.2); Sodium Level 143 mEq/L (136-145); Troponin High Sensitivity 10.6 pg/mL (<58.9)
[2022-11-13 16:52] LABS: Bilirubin Direct < 0.1 mg/dL (0-0.2); Bilirubin Indirect, Calculated ND mg/dL (0.2-0.8)
--- NOTE | 2022-11-13 17:00 | RAD REPORT ---
EXAM DESCRIPTION: CT - Head Brain Wo Cont - 11/13/2022 4:46 pm CLINICAL HISTORY: syncope COMPARISON: October TECHNIQUE: Computed axial tomography of the head was obtained. IV contrast was not requested. All CT scans are performed using dose optimization technique as appropriate and may include automated exposure control or mA/KV adjustment according to patient size. FINDINGS: Left craniotomy. There appears to be an approximately 3.3 centimeter residual mass left fr ontal lobe. The surround edema has diminished. Shift of midline structures 3 millimeters towards the right. No intracranial bleed. No hydrocephalus. Fluid within the sinuses/ mastoids is not seen. IMPRESSION: Left frontal lobe mass has been resected. There appears to be 3.3 centimeter residual ma ss although this is difficult to assess on a unenhanced CT scan. The surrounding vasogenic edema has diminished since November 06, 2022
--- NOTE | 2022-11-13 17:00 | RAD REPORT ---
EXAM DESCRIPTION: Cristobal Single View11/13/2022 4:48 pm CLINICAL HISTORY: Syncope. Lung cancer COMPARISON: October 2022 FINDINGS: Calcified granuloma right lung. The lungs appear clear of acute infiltrate. The heart is normal size IMPRESSION: No acute abnormalities displayed
--- NOTE | 2022-11-13 17:16 | EDPHYS ---
Physician Documentation [facility] Name: Maite Severino Age: 62 yrs Sex: Female : 1960 Arrival Date: 11/13/2022 Time: 15:24 Bed 6 Private MD: ED Physician Javier Wilburn HPI: 11/13 15:56 This 62 yrs old Female presents to ER via EMS with complaints of Syncope. ms3 15:56 62-year-old female with past medical history of asthma, lung cancer, schizophrenia, ms3 brain tumor presents via [facility] status post syncopal episode. On EMS arrival patient was slumped over with altered speech. EMS notes patient had a brain tumor removed 3 weeks ago with deficits of speech change. Patient denies pain. Patient endorses lightheadedness.. Historical: - Allergies: 15:36 No Known Allergies; ss - PMHx: 15:36 Asthma; Lung Cancer; Schizophrenia; BRAIN TUMOR; ss - PSHx: 15:36 Cholecystectomy; tunor removal; ss ROS: 15:56 Constitutional: Negative for fever, and chills. ENT: Negative for injury, pain, and ms3 discharge, Neck: Negative for injury, pain, and swelling. 15:56 Cardiovascular: Negative for chest pain, and palpitations. Respiratory: Negative for shortness of breath, cough, wheezing, and pleuritic chest pain, Abdomen/GI: Negative for abdominal pain, nausea, vomiting, diarrhea, and constipation, Skin: Negative for injury, rash, and discoloration. 15:56 Cardiovascular: 15:56 Neuro: Positive for syncope. 15:56 All other systems are negative. Exam: 15:56 Constitutional: This is a well developed, well nourished patient who is awake, alert, ms3 and in no acute distress. Eyes: Pupils equal round and reactive to light, extra-ocular motions intact. Lids and lashes normal. Conjunctiva and sclera are non-icteric and not injected. Periorbital areas with no swelling, redness, or edema. Neck: Trachea midline, no cervical lymphadenopathy. Supple, full range of motion without nuchal rigidity, or vertebral point tenderness. No Meningismus. Chest/axilla: Normal chest wall appearance and motion. Nontender with no deformity. Cardiovascular: Regular rate and rhythm with a normal S1 and S2. No gallops, murmurs, or rubs. Normal PMI, no JVD. No pulse deficits. Respiratory: Lungs have equal breath sounds bilaterally, clear to auscultation and percussion. No rales, rhonchi or wheezes noted. No increased work of breathing, no retractions or nasal flaring. Abdomen/GI: Soft, non-tender, with normal bowel sounds. No distension or tympany. No guarding or rebound. No evidence of tenderness throughout. 15:56 Head/face: Noted is V shaped incision on parietal scalp without erythema, drainage. 17:14 ECG was reviewed by the Attending Physician. ms3 Vital Signs: 15:36 BP 111 / 79; Pulse 94; Resp 20; Pulse Ox 94% on R/A; ss 15:40 Temp 97.9(TE); ss 17:07 Weight 77.11 kg; Height 5 ft. 0 in. ; ss 17:07 Body Mass Index 33.20 (77.11 kg, 152.4 cm) ss MDM: 15:56 Patient medically screened. ms3 17:58 Differential Diagnosis: cardiac arrhythmia, cerebrovascular accident, drug effect, ms3 idiopathic syncope, seizure. Data reviewed: vital signs, nurses notes, lab test result(s), EKG, radiologic studies, and as a result, I will transfer. Consideration of Admission/Observation Patient transferred. Management of patient was discussed with the following: Dr Case REID at [facility]. Independent interpretation of the following test(s) in the Emergency Department EKG: See my EKG interpretation above court recording monitor: rate is 91 beats/min, Rhythm is normal sinus rhythm, regular, with no ectopy, Interpretation: normal rate, normal rhythm. Historians other than the Patient: EMS: [facility]. Daughter/Son: Patient's son. Care significantly affected by the following chronic conditions: Lung Cancer, Asthma, Schizophrenia. Counseling: I had a detailed discussion with the patient and/or guardian regarding: the historical points, exam findings, and any diagnostic results supporting the discharge/admit diagnosis, lab results, radiology results, the need to transfer to another facility. 11/13 15:55 Order name: Basic Metabolic Panel; Complete Time: 17:01 ms3 11/13 15:55 Order name: CBC with Diff; Complete Time: 16:49 ms3 11/13 15:55 Order name: Hepatic Function; Complete Time: 17:01 ms3 11/13 15:55 Order name: Magnesium; Complete Time: 17:01 ms3 11/13 15:55 Order name: Protime (+inr); Complete Time: 16:49 ms3 11/13 15:55 Order name: Ptt, Activated; Complete Time: 16:49 ms3 11/13 15:55 Order name: Troponin High Sensitivity; Complete Time: 17:01 ms3 11/13 15:55 Order name: UDS; Complete Time: 17:28 ms3 11/13 15:55 Order name: Urinalysis w/ reflexes; Complete Time: 17:28 ms3 11/13 15:55 Order name: CT Head Brain wo Cont; Complete Time: 17:01 ms3 11/13 15:55 Order name: Chest Single View XRAY; Complete Time: 17:01 ms3 11/13 15:55 Order name: EKG; Complete Time: 15:58 ms3 11/13 15:55 Order name: Cardiac monitoring; Complete Time: 17:05 ms3 11/13 15:55 Order name: EKG - Nurse/Tech; Complete Time: 17:26 ms3 11/13 15:55 Order name: IV Saline Lock; Complete Time: 16:36 ms3 11/13 15:55 Order name: Labs collected and sent; Complete Time: 16:36 ms3 11/13 15:55 Order name: NPO; Complete Time: 16:36 ms3 11/13 15:55 Order name: O2 Per Protocol; Complete Time: 16:36 ms3 11/13 15:55 Order name: O2 Sat Monitoring; Complete Time: 16:36 ms3 EC:14 Rate is 92 beats/min. Rhythm is regular. QRS [place] is Normal. MI interval is normal. QRS ms3 interval is normal. Clinical impression: NSR w/ Non-specific ST/T Changes. Interpreted by me. Reviewed by me. Administered Medications: No medications were administered Disposition Summary: 11/13/22 17:15 Transfer Ordered Transfer Location: [facility] ms3 Reason: Higher level of care ms3 Condition: Stable ms3 Problem: new ms3 Symptoms: are unchanged ms3 Accepting Physician: Dr Camp(11/13/22 19:43) rv Diagnosis - Syncope ms3 - Altered mental status, unspecified ms3 Forms: - Medication Reconciliation Form ms3 - SBAR form ms3 Signatures: Dispatcher [employer] EDEvangelina Mata RN RN ss Myles Jefferson RN RN rv Javier Wilburn DO DO ms3 Corrections: (The following items were deleted from the chart) 17:53 17:15 Dr mccoy ms3 19:43 17:53 Dr Camp ms3 rv
--- NOTE | 2022-11-13 17:16 | ER ---
Nurse's Notes [facility] Name: Maite Severino Age: 62 yrs Sex: Female : 1960 Arrival Date: 11/13/2022 Time: 15:24 Bed 6 Private MD: Diagnosis: Syncope;Altered mental status, unspecified Presentation: 11/13 15:36 Chief complaint: EMS states: Syncopal episode at [facility]. [facility] report that ss patient had brain surgery 3 weeks ago because of brain tumor. Coronavirus screen: Client denies travel out of the [place] in the last 14 days. Ebola Screen: Patient denies exposure to infectious person. Patient denies travel to an Ebola-affected area in the 21 days before illness onset. Initial Sepsis Screen: Does the patient meet any 2 criteria? No. Patient's initial sepsis screen is negative. Does the patient have a suspected source of infection? No. Patient's initial sepsis screen is negative. Onset of symptoms was November 13, 2022. Care prior to arrival: IV initiated. 20 GA, in the left antecubital area, 20 gauge in R AC. 15:36 Method Of Arrival: EMS: [facility] ss 15:36 Acuity: MINH 2 ss 15:39 Care prior to arrival: Glucose check: 107. Triage Assessment: 19:42 Neuro: Reports. rv Historical: - Allergies: 15:36 No Known Allergies; ss - PMHx: 15:36 Asthma; Lung Cancer; Schizophrenia; BRAIN TUMOR; ss - PSHx: 15:36 Cholecystectomy; tunor removal; ss Screenin:18 [facility] ED Fall Risk Assessment (Adult) History of falling in the last 3 months, iw including since admission Yes- single mechanical fall (1 pt). Abuse screen: Denies threats or abuse. Denies injuries from another. Nutritional screening: No deficits noted. Tuberculosis screening: No symptoms or risk factors identified. Assessment: 17:17 General: Appears in no apparent distress. Behavior is drowsy, flat. Pain: Noted to be iw quiet/stoic. Neuro: Level of Consciousness is drowsy. Moves all extremities. Cardiovascular: Capillary refill < 3 seconds in bilateral fingers Rhythm is regular. Respiratory: Respiratory effort is even, unlabored, Respiratory pattern is regular, symmetrical. GI: Abdomen is non-distended, Abd is soft and non tender X 4 quads. Derm: Skin is intact. Musculoskeletal: Range of motion: intact in all extremities. 18:23 Reassessment: Patient appears in no apparent distress at this time. pt awakens to iw verbal stimuli, oriented X 3. Vital Signs: 15:36 BP 111 / 79; Pulse 94; Resp 20; Pulse Ox 94% on R/A; ss 15:40 Temp 97.9(TE); ss 17:07 Weight 77.11 kg; Height 5 ft. 0 in. ; ss 17:07 Body Mass Index 33.20 (77.11 kg, 152.4 cm) ED Course: 15:35 Patient arrived in ED. ss 15:36 Arm band placed on right wrist. ss 15:38 Javier Wilburn DO is Attending Physician. ms3 15:38 Triage completed. ss 15:53 Anamaria Rae, RN is Primary Nurse. iw 16:37 Straight cath inserted, using sterile technique, 16 Fr. Specimen obtained. Patient ss tolerated well. 16:47 CT Head Brain wo Cont In Process Unspecified. EDMS 16:50 Chest Single View XRAY In Process Unspecified. EDMS 17:04 initiated a transfer Manny from the [facility]. eb 17:11 per Manny they will have to decline the patient at this time/ they are at capacity. eb 17:18 initiated a transfer with Nelly the warehouse forklift operator line service person for [facility]/ they will have to decline the patient at this time/ they do not have any beds at this time/ he also says that no other neurosurgeon will take a post op surgery patient/ to attempt the medical center again. 17:21 initiated a transfer with Mellissa from the [facility]. Explained patient eb situation/ she will try and get a hold of the neurosurgeon who operated and her and see what he wants. 17:37 Mellissa is going to reach out to Dr. Abdullahi and call us back. eb 17:50 connected the neurosurgeon line service person for [facility] with Dr. Wilburn for patient transfer eb consultation. 18:01 administrative approval given by Mellissa [employer] P[employer]. patient has been eb accepted to [facility] 18th floor room 1803/ Dr. Vallejo the neurosurgeon line service person has accepted the patient in transfer/ report to be called to [phone]. 19:00 No provider procedures requiring assistance completed. rv 19:00 Patient transferred, IV remains in place. rv Administered Medications: No medications were administered Medication: 17:18 VIS not applicable for this client. iw Outcome: 17:15 ER care complete, transfer ordered by . ms3 19:00 Transferred by ground EMS rv 19:00 Condition: stable 19:00 Instructed on the need for transfer. rv 19:43 Patient left the ED. rv Signatures: Dispatcher [employer] Anamaria Chávez, RN HAZEL iw Evangelina Burciaga RN RN ss Emeli Jane Ronaldo, RN RN rv Javier Wilburn DO DO ms3 Corrections: (The following items were deleted from the chart) 18:09 17:21 initiated a transfer with Freddy from the [facility] transfer center. Explained eb patient situation/ she will try and get a hold of the neurosurgeon who operated and her and see what he wants. eb 18:09 17:37 Taliaevelina is going to reach out to Dr. Abdullahi and call us back eb eb
[2022-11-13 17:23] LABS: Barbiturates NEGATIVE (NEGATIVE); Benzodiazepines NEGATIVE (NEGATIVE); Cocaine NEGATIVE (NEGATIVE); METHAMPHETAM POSITIVE (NEGATIVE); Methadone NEGATIVE (NEGATIVE); Opiates NEGATIVE (NEGATIVE); Phencyclidine NEGATIVE (NEGATIVE); THC Cannibis POSITIVE (NEGATIVE)
[2022-11-13 17:27] LABS: Urine Bacteria <20 /HPF (<20); Urine Bilirubin NEGATIVE (Negative); Urine Blood Negative (Negative); Urine Clarity Turbid (Clear); Urine Color Yellow (Yellow); Urine Glucose NEGATIVE (Negative); Urine Mucus 4+ /HPF (None Seen); Urine Protein 1+ (Negative); Urine RBC <5 /HPF (None Seen); Urine Urobilinogen Normal (Normal)
[2022-11-13 19:55] VITALS: BP 111/79; O2SAT 94
[2022-11-13 19:57] VITALS: TEMP 97.9
--- NOTE | 2022-11-14 12:14 | EKG ---
Test Date: 2022-11-13 Test Time: 17:07:52 Dispatcher Relay: PRICILA MEASUREMENT RESULTS: Intervals: Rate: 92 MS: 150 QRSD: 86 QT: 430 QTc: 531 [place]: P: 77 MS: 150 QRS: 53 T: 35 INTERPRETIVE STATEMENTS: Sinus rhythm with occasional premature ventricular complexes and premature atrial complexes Nonspecific T wave abnormality Prolonged QT Abnormal ECG Compared to ECG 11/06/2022 23:47:09 Atrial premature complex(es) now present Sinus arrhythmia no longer present T-wave abnormality still present Electronically Signed On 11-14-22 12:13:15 CDT by Gera Hawkins
== END 2022-11-13 19:43 | disposition short-term general hospital (02) ==
LOC: ER 15:24
DX: R41.82 Altered mental status, unspecified (principal); F20.9 Schizophrenia, unspecified; Z85.841 Personal history of malignant neoplasm of brain
CPT/HCPCS: 36415; 51702; 70450; 71045; 80048; 80076; 80307; 81001; 83735; 84484; 85025; 85610; 85730; 93005; 99285

== ENCOUNTER 2022-12-10 12:29 | Emergency (ER) | payer OTHER ==
--- OUTSIDE RECORDS SUMMARY | 2022-12-10 12:45 | XMS REPORT | Continuity of Care Document ---
:1960 Author Organization [facility] t Address [address] [facility] [address] [place] [address] Care Team Providers Name Role Phone Ant Oliva PA-C Primary Care Physician Dusty Truong MD Attending Clinician Marielena Ramsay MD Attending Clinician Provider, Unknown Attending Clinician Unavailable Katrin Abdullahi MD [facility]ending [facility]ician [facility] Attending Clinician Unavailable Saul Cohen Attending Clinician Unavailable Manuel Calvo MD Attending Clinician Sarina Ballard MA Attending Clinician Unavailable Asked, No Pcp Attending Clinician Unavailable Conrado COOL, uJdd Jarrett Attending Clinician Nheal COOL, Brandy Saenz Attending Clinician Margaret Cowan RN Attending Clinician Unavailable Ken Rousseau MD Attending Clinician Margaret Guillermo MA Attending Clinician Unavailable Margaux Guido MD Attending Clinician Cj Amaya MD Attending Clinician Guille Hansen MD Attending Clinician Franky CONNERJessica Attending Clinician Donta Almendarez MD Attending Clinician Colleen Mcelroy RN Attending Clinician Unavailable Salvatore OLIVA, Magui Ram Attending Clinician Unavailable Stephani Marinelli RN Attending Clinician Unavailable Jose Alberto MAGANAW, Esther Attending Clinician Unavailable Juanito OLIVA, Laura Attending Clinician Unavailable Makayla Cuevas RN Attending Clinician Unavailable Mckenna RAMIREZSW, Blanca Attending Clinician Unavailable Irma Carr RN Attending Clinician Unavailable Jossue [facility], Zara Attending Clinician Unavailable Cecilio Godoy RN Attending Clinician Unavailable Ventura Navarrete MD Attending Clinician Frances Kong MD Attending Clinician MD VENTURA NAVARRETE Attending Clinician Unavailable Vicky Duff MD Attending Clinician Artem Urrutia RN Attending Clinician Unavailable Manuel Cisneros MD Attending Clinician [phone] Estella Sousa Attending Clinician Unavailable Evgeny Vásquez RN Attending Clinician Unavailable Epifanio RAMIREZ, Yanni Attending Clinician Unavailable Sri [facility], Deanna Attending Clinician Unavailable Ezra Banks [facility], Ember Attending Clinician Unavailable Ivonne Saleh MA Attending Clinician Unavailable Petty Prieto RN Attending Clinician Unavailable Adalid COOL, Donta CantrellHMichael Attending Clinician Hugh Damon MD Attending Clinician Lata Chowdary Attending Clinician Unavailable MD DONTA LYNN.HMichael Attending Clinician Unavailable Yelitza Sims MA Attending Clinician Unavailable AKTRIN ABDULLAHI Admitting Clinician Unavailable KEN ROUSSEAU Admitting Clinician Unavailable BRANDY CALVERT Admitting Clinician Unavailable FRANCES KONG Admitting Clinician Unavailable MD VENTURA NAVARRETE Admitting Clinician Unavailable DONTA LYNN Admitting Clinician Unavailable MD DONTA LYNN Admitting Clinician Unavailable Payers Payer Name Policy Type Policy Number Effective Date Expiration Date S ource Problems Condition Condition Condition Status Onset Resolution Last Treating Co mments Source Name Details Category Date Date Treatment Clinician Date 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 12-02 st 00:00: Hospita 00 l H/O brain H/O brain Disease Active Met [facility] tumor tumor 11-14 st 00:00: Hospita 00 l 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 11-13 st brain brain 00:00: Hospita 00 l Brain Brain Disease Active [facility] tumor tumor 11-07 st 00:00: Hospita 00 l Gait Gait Disease Active [facility] instabilit instabilit 6 st y y 00:00: Hospita 00 l ENG ENG Disease Active Methodi (headache) (headache) 10-20 st 00:00: Hospita 00 l 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 Family History Family Member Diagnosis Comments Start Date Stop Date Source Natural father History of cancer Met [facility] Natural father Lung cancer [facility] Natural mother COPD [facility] Natural mother Diabetes [facility] Natural mother Lung cancer [facility] Social History Social Habit Start Date Stop Date Quantity Comments Source Gender identity 2021-02-21 Identifies as [facility] 13:18:55 female gender Hospital (finding) Sexual orientation 2021-02-21 Heterosexual Meth [facility]ist 13:18:55 (finding) Hospital Alcohol intake 2022-12-02 2022-12-02 Ex-drinker [facility] 00:00:00 00:00:00 (finding) Hospital History of Social 2022-12-02 2022-12-[address] function 00:00:00 00:00:00 Hospital Cigarettes smoked 2022-01-16 2022-01-[address] current (pack per 00:00:00 00:00:00 Hospita l day) - Reported Cigarette 2022-01-16 2022-01-16 [facility] pack-years 00:00:00 00:00:00 Hospital Tobacco use and 2022-01-16 2022-01-16 Smokeless tobacco [facility] exposure 00:00:00 00:00:00 non-user Hospital History of tobacco 2014-07-08 Cigarette Smoker [facility] use 00:00:00 Hospital Sex Assigned At [birth year] F [facility] 00:00:00 00:00:00 Hospital Smoking Status Start Date Stop Date Source Ex-smoker 2022-01-16 00:00:00 2022-01-16 00:00:00 [facility] Medications Ordered Filled Start Stop Current Ordering Indication Dosage Frequency Signature Comments Components Source Medication Medication Date Date Medication? Clinician (SIG) Name Name ondansetron Yes 8mg Q8H Take 1 Meth matty (Zofran) 8 7-27 tablet (8 st MG tablet 00:00: mg total) Hos julian 00 by mouth l every 8 (eight) hours as needed for nausea or vomiting. folic acid 2023- Yes 400ug QD Take 0.5 M ethodi (FOLVITE) 12-05- tablets st 800 MCG 00:00: 04:59 (400 mcg Hospi ta tablet 00 :00 total) by l mouth daily. promethazin 2023- Yes 25mg Q6H Take 1 Met hodi e 12-05 tablet (25 st (PHENERGAN) 00:00: 04:59 mg total) Hospita 25 MG 00 :00 by mouth l tablet every 6 (six) hours as needed for vomiting or nausea. acetaminoph Yes 650mg Q8H Take 1 Met [facility]odi en ER 7-[address] (Tylenol 15:02: (650 mg Hospit a Arthritis 14 total) by l Pain) 650 mouth MG 8 hr every 8 tablet (eight) hours as needed for mild pain. diclofenac Yes 2g Q.25D Apply 2-4 M ethodi (VOLTAREN) 7-[address] 1 % gel 15:02: topically Hospi ta 14 4 (four) l times a day as needed (Knee pain). albuterol Yes 2{puff} Q6H Inhale 2 M ethodi 90 7-[address] mcg/actuati 15:02: every 6 Hos julian on inhaler 14 (six) l hours as needed for wheezing or shortness of breath. fluticasone Yes QD Take 1 Meth matty -umeclidin- 7-[address] vilanter 15:02: s by mouth Hos julian (TRELEGY 14 daily. l ELLIPTA) 100-62.5-25 mcg blister with device powder for inhalation cyanocobala 2023- Yes 1000ug QD Take 1 M ethodi min 11-17- tablet st (VITAMIN 00:00: 04:59 (1,000 mcg Ho spita B-12) 1000 00 :00 total) by l MCG tablet mouth daily. multivitami 2023- Yes 1{tbl} QD Take 1 M ethodi n tablet 11-[address] 00:00: 04:59 mouth Hospita 00 :00 daily. l acetaminoph Yes 650mg Q8H Take 1 Met hodi en ER 6-[address] (Tylenol 15:42: (650 mg Hospit a Arthritis 38 total) by l Pain) 650 mouth MG 8 hr every 8 tablet (eight) hours as needed for mild pain. diclofenac 0 Yes 2g Q.25D Apply 2-4 M ethodi (VOLTAREN) 6-[address] 1 % gel 15:42: topically Hospi ta 38 4 (four) l times a day as needed (Knee pain). albuterol 0 Yes 2{puff} Q6H Inhale 2 M ethodi [...] blister with device powder for inhalation acetaminoph 0 Yes 650mg Q8H Take 1 Met hodi en ER 6-[address] (Tylenol 13:10: (650 mg Hospit a Arthritis 02 total) by l Pain) 650 mouth MG 8 hr every 8 tablet (eight) hours as needed for mild pain. diclofenac 0 Yes 2g Q.25D Apply 2-4 M ethodi (VOLTAREN) 6-[address] 1 % gel 13:10: topically Hospi ta 02 4 (four) l times a day as needed (Knee pain). albuterol 0 Yes 2{puff} Q6H Inhale 2 M ethodi 90 6-[address] mcg/actuati 13:10: every 6 Hos julian on inhaler 02 (six) l hours as needed for wheezing or shortness of breath. fluticasone 2022-0 Yes QD Take 1 Meth matty -umeclidin- 6-[address] vilanter 13:10: s by mouth Hos julian (TRELEGY 02 daily. l ELLIPTA) 100-62.5-25 mcg blister with device powder for inhalation naproxen 2022-0 2023- No 220mg Take 220 Met hodi sodium [...] QD Take 2 Met [facility]odi (SEROquel) -31 10-[address] 300 MG 13:10: 00:00 (600 [...] 6mg QD Take 2 Met hodi (RisperDAL) 10-31-22 tablets (6 s t 3 MG tablet 13:10: 00:00 mg total) Hospita 40 :00 by mouth l daily. multivitami 2022-0 2022- No 1{tbl} QD Take 1 M ethodi n tablet 10-[address] 13:10: 00:00 mouth Hospita 40 :00 daily. l QUEtiapine 2022-0 2022- No 600mg QD Take 2 Met hodi (SEROquel) -31 10-[address] 300 MG 13:10: 00:00 (600 mg Hospita tablet 40 :00 total) by l mouth nightly. risperiDONE 2022-0 2022- No 6mg QD Take 2 Met hodi (RisperDAL) 10-31-22 tablets (6 s t 3 MG tablet 13:10: 00:00 mg total) Hospita 40 :00 by mouth l daily. multivitami 2022-0 2022- No 1{tbl} QD Take 1 M ethodi n tablet 10-[address] 13:10: 00:00 mouth Hospita 40 :00 daily. l levETIRAcet 2022-0 Yes 500mg Q.5D Take 1 Met hodi am (KEPPRA) - tablet st 500 MG 00:00: (500 mg [...] mouth 2 (two) times a day. levETIRAcet 3-0 Yes 500mg Q.5D Take 1 Met hodi am (KEPPRA) -[address] 500 MG 00:00: (500 mg Hospita tablet 00 total) by l mouth 2 (two) times a day. risperiDONE 3-0 Yes 2mg Q.5D Take 1 Meth matty (RisperDAL) 6-22 tablet (2 st 2 MG tablet 00:00: mg total) H ospita 00 by mouth 2 l (two) times a day. PARoxetine 2023-0 Yes 20mg QD Take 1 Metho di (PAXIL) 20 6-22 tablet (20 st MG tablet 00:00: mg total) Hos julian 00 by mouth l every evening. QUEtiapine 2023-0 Yes 300mg Q.5D Take 1 Meth matty [...] 2mg Q.5D Take 1 Meth matty (RisperDAL) 6-22 tablet (2 st 2 MG tablet 00:00: mg total) H ospita 00 by mouth 2 l (two) times a day. PARoxetine 2023-0 Yes 20mg QD Take 1 Metho di (PAXIL) 20 -22 tablet (20 st MG tablet 00:00: mg total) Hos julian 00 by mouth l every evening. QUEtiapine 2023-0 Yes 300mg Q.5D Take 1 Meth matty (SEROquel) 6-[address] 300 MG 00:00: (300 mg Hospita tablet 00 total) by l mouth 2 (two) times a day. mirtazapine 2023-0 2023- Yes 15mg QD Take 1 Met hodi (REMERON) 10-31- tablet (15 st 15 MG 00:00: 04:59 mg total) Hospit a tablet 00 :00 by mouth l nightly for 30 days. mirtazapine 2023-0 2023- Yes 15mg QD Take 1 Met hodi (REMERON) 10-31- tablet (15 st 15 MG 00:00: 04:59 mg total) Hospit a tablet 00 :00 by mouth l nightly for 30 days. mirtazapine 2023-0 2023- No 15mg QD Take 1 Met hodi (REMERON) 10-31- tablet (15 st 15 MG 00:00: 04:59 mg total) Hospit a tablet 00 :00 by mouth l nightly for 30 days. dexAMETHaso 2023-0 3- No Take 2 Met hodi ne 10-31-08 tablets (2 st (DECADRON) 00:00: 00:00 mg total) H ospita 1 MG tablet 00 :00 by mouth 2 l (two) times a day with meals for 2 days, THEN 1 tablet (1 mg total) 2 (two) times a day with meals for 3 days, THEN 1 tablet (1 mg total) daily with breakfast for 2 days. Then stop. dexAMETHaso 2022-2022- Yes Take 2 Met hodi ne 6-22 06-30 tablets (2 st (DECADRON) 00:00: 04:59 mg total) H ospita 1 MG tablet 00 :00 by mouth 2 l (two) times a day with meals for 2 days, THEN 1 tablet (1 mg total) 2 (two) times a day with meals for 3 days, THEN 1 tablet (1 mg total) daily with breakfast for 2 days. Then stop. dexAMETHaso 2022- No Take 2 Met hodi ne 6-31 10-30 tablets (2 st (DECADRON) 00:00: 04:59 mg [...] 59 :00 daily. l BIOTIN ORAL 2022-0 2022- No 1{tbl} QD Take 1 M ethodi 6-20 06-[address] 11:48: 00:00 mouth Hospita 59 :00 daily. l BIOTIN ORAL 2022-0 2022- No 1{tbl} QD Take 1 M ethodi 6-20 06-[address] 11:48: 00:00 mouth Hospita 59 :00 daily. l benztropine 2022-0 2022- No 1mg Q.5D Take 1 mg Methodi (COGENTIN) 6-20 -[address] 1 MG tablet 11:48: 00:00 (two) Hosp miranda 49 :00 times a l day. Patient is unsure whether she is taking this medication (verbally stated). benztropine 2023-0 3- No 1mg Q.5D Take 1 mg Methodi (COGENTIN) 6-20 06-[address] 1 MG tablet 11:48: 00:00 (two) Hosp miranda 49 :00 times a l day. Patient is unsure whether she is taking this medication (verbally stated). benztropine 2023-0 3- No 1mg Q.5D Take 1 mg [...] 12:42: mouth Hospita 08 daily. l HYDROcodone 2021- Yes [id number] 15mL Q6H Take 15 mL Methodi -acetaminop 0-[address] hen (HYCET) 00:00: every 6 Hos julian 2.5-108.3 00 (six) l mg/5 mL hours as solution needed for moderate pain .acute pain, chronic pain. Max Daily Amount: 60 mL HYDROcodone 2021-1 2023- No [id number] 15mL Q6H Take 15 mL Methodi -acetaminop 0-20 06-[address] hen (HYCET) 00:00: 00:00 every 6 Ho spita 2.5-108.3 00 :00 (six) l mg/5 mL hours as solution needed for moderate pain .acute pain, chronic pain. Max Daily Amount: 60 mL HYDROcodone 2021-05 No [id number] 15mL Q6H Take 15 mL Methodi -acetaminop 0-20 06-[address] hen (HYCET) 00:00: 00:00 every 6 Ho spita 2.5-108.3 00 :00 (six) l mg/5 mL hours as solution needed for moderate pain .acute pain, chronic pain. Max Daily Amount: 60 mL HYDROcodone 2021-05 15mL Q6H Take 15 mL Methodi -acetaminop [...] by mouth l tablet daily. levothyroxi 2021-05 No 75ug QD Take 1 Met hodi ne 0-06 10-07 tablet (75 st (Synthroid) 00:00: 04:59 mcg total) Hospita 75 mcg 00 :00 by mouth l tablet daily. levothyroxi 2021-05 75ug QD Take 1 Met hodi ne 0-06 10-07 tablet (75 st (Synthroid) 00:00: 04:59 mcg total) Hospita 75 mcg 00 :00 by mouth l tablet daily. levothyroxi 2021-05 No 75ug QD Take 1 [...] Q.5D Take 3 mg M ethodi (RisperDAL) -[address] 3 MG tablet [...] blister with device powder for inhalation fluticasone 2021-2022- No INHALE ONE Methodi furoate-radha 3-15 06-20 (1) PUFF st anteroL 00:00: 00:00 BY MOUTH Hospi ta (Breo 00 :00 DAILY. l Ellipta) 100-25 mcg/dose blister with device powder for inhalation fluticasone 2021-2022- No INHALE ONE Methodi furoate-radha 3-15 06-20 (1) PUFF st anteroL 00:00: 00:00 BY MOUTH Hospi ta (Breo 00 :00 DAILY. l Ellipta) 100-25 mcg/dose blister with device powder for inhalation fluticasone 2021-2022- No INHALE ONE Methodi furoate-radha 3-15 06-20 [...] QD Take 1 Met hodi ne -01 06-22 tablet (50 st (Synthroid) 00:00: 05:59 mcg total) Hospita 50 mcg 00 :00 by mouth l tablet daily. levothyroxi 2022- No 50ug QD Take 1 Met hodi ne 06-01 tablet (50 st (Synthroid) 00:00: 05:59 mcg total) Hospita 50 mcg 00 :00 by mouth l tablet daily. levothyroxi No 50ug QD Take 1 Met hodi ne 06-01 tablet (50 st (Synthroid) 00:00: 05:59 mcg total) Hospita 50 mcg 00 :00 by mouth l tablet daily. levothyroxi No 50ug QD Take 1 Met hodi ne 06-01 tablet (50 st (Synthroid) 00:00: 05:59 mcg total) Hospita 50 mcg 00 :00 by mouth l tablet daily. potassium [id number] 20meq Me thodi chloride 05-29 st (K-DUR) CR 16:15: 16:51 Hospit a tablet 20 00 :00 l mEq benadryl/li 2020-05 5mL Q6H Swish and Methodi docaine/maa 05-[address] lox (MAGIC 00:00: [...] needed for nausea or vomiting. ondansetron 2020-05 No 8mg Q8H Take 1 Met hodi (Zofran) 8 1 07-27 tablet (8 st MG tablet 00:00: 00:00 [...] suspension 30 days. suspension nystatin 2020-05- No [id number] Q.25D Take 5 mL Methodi (MYCOSTATIN 10 -18 (500,000 st ) 100,000 00:00: 05:59 Units Hospit a unit/mL 00 :00 total) by l suspension mouth 4 (four) times a day for 7 days. Swish in mouth fluticasone 2020-05- No QD Inhale Met hodi -umeclidin- 05-19 11-[address] vilanter 10:12: 00:00 Hospita (TRELEGY 53 :00 l ELLIPTA) 100-62.5-25 mcg blister with device fluticasone 2020-05- No INHALE ONE Methodi furoate-radha 05-19 03-15 (1) PUFF st anteroL 00:00: 00:00 BY MOUTH Hospi ta (Breo 00 :00 DAILY. l Ellipta) 100-25 mcg/dose blister with device powder for inhalation benadryl/li 2020-05 No 5mL Q6H Swish and Methodi docaine/maa 05-[address] lox (MAGIC 00:00: 00:00 every 6 Hos julian MOUTHWASH) 00 :00 (six) l 1:1:1 hours for suspension 30 days. suspension ondansetron 2020-05- No 8mg Q8H Take 1 Met hodi [...] :00 by mouth l nightly. mirtazapine 2019-05 No 30mg QD Take 1 Met hodi (REMERON) 0-27 06-22 tablet (30 st 30 MG 00:00: 00:00 mg total) Hospit a tablet 00 :00 by mouth l nightly. mirtazapine 2019-05 No 30mg QD Take 1 [...] daily. Hospit a 00 l PARoxetine 2019-05 No 60mg QD Take 2 Meth matty (PAXIL) 30 0-02 06-[address] MG tablet 00:00: 00:00 (60 mg Hospi ta 00 :00 total) by l mouth every morning. PARoxetine 2019-05 No 60mg QD Take 2 Meth matty (PAXIL) 30 0-02 06-[address] MG tablet 00:00: 00:00 (60 mg Hospi ta 00 :00 total) by l mouth every morning. PARoxetine 2019-05 60mg QD Take 2 Meth matty (PAXIL) 30 0-02 06-[address] MG tablet 00:00: 00:00 (60 mg Hospi ta 00 :00 total) by l mouth every morning. Breo 2019-05 No INHALE ONE Method i Ellipta 03-19 [...] by l mouth daily. divalproex 2006-05 Yes 1500mg QD Take 3 [...] Time Observation Value Comments Source Systolic blood 2022-12-02 20:01:00 147 mm[Hg] [facility] pressure Diastolic blood 2022-12-02 20:01:00 78 mm[facility]Hg[facility] pressure Heart rate 2022-12-02 20:01:00 100 /min [facility] Body temperature 2022-12-02 20:01:00 36.22 Shira [facility] Body height 2022-12-02 20:01:00 152.4 cm [facility] Body weight 2022-12-02 20:01:00 77.248 kg [facility] BMI 2022-12-02 20:01:00 33.26 kg/m2 [facility] Oxygen saturation in 2022-12-02 20:01:00 95 /min [facility] Arterial blood by Pulse oximetry Respiratory rate 2022-11-16 20:51:14 16 /min [facility] Systolic blood 2022-11-07 16:44:07 115 mm[Hg] Method [facility] pressure Diastolic blood 2022-11-07 16:44:07 66 mm[Hg] [facility] pressure Heart rate 2022-11-07 16:44:07 101 /min [facility] Body temperature 2022-11-07 16:44:07 36.83 Shira [facility] Respiratory rate 2022-11-07 16:44:07 18 /min [facility] Oxygen saturation in 2022-11-07 16:44:07 95 /min [facility] Arterial blood by Pulse oximetry Systolic blood 2022-10-31 15:58:21 115 mm[Hg] Method [facility] pressure Diastolic blood 2022-10-31 15:58:21 79 mm[Hg] [facility] pressure Heart rate 2022-10-31 15:58:21 95 /min [facility] Body temperature 2022-10-31 15:58:21 36.67 Shira [facility] Respiratory rate 2022-10-31 15:58:21 19 /min [facility] Oxygen saturation in 2022-10-31 15:58:21 97 /min [facility] Arterial blood by Pulse oximetry Body height 2022-10-20 23:10:00 152.4 cm [facility] Body weight 2022-10-20 23:10:00 74.5 kg [facility] BMI 2022-10-20 23:10:00 32.08 kg/m2 [facility] Systolic blood 2022-07-18 19:30:00 143 mm[Hg] [facility] pressure Diastolic blood 2022-07-18 19:30:00 63 mm[Hg] [facility] pressure Heart rate 2022-07-18 19:30:00 103 /min [facility] Body temperature 2022-07-18 19:30:00 36.72 Shira [facility] Respiratory rate 2022-07-18 19:30:00 16 /min [facility] Body height 2022-07-18 19:30:00 152.4 cm [facility] Body weight 2022-07-18 19:30:00 82.555 kg [facility] BMI 2022-07-18 19:30:00 35.54 kg/m2 [facility] Oxygen saturation in 2022-07-18 19:30:00 94 /min [facility] Arterial blood by Pulse oximetry Systolic blood 2022-01-16 19:44:00 124 mm[Hg] Method [facility] Hospital pressure Diastolic blood 2022-01-16 19:44:00 80 mm[Hg] [facility] pressure Heart rate 2022-01-16 19:44:00 86 /min [facility] Body temperature 2022-01-16 19:44:00 36.83 Shira [facility] Respiratory rate 2022-01-16 19:44:00 20 /min [facility] Body height 2022-01-16 19:44:00 152.4 cm [facility] Body weight 2022-01-16 19:44:00 84.55 kg [facility] BMI 2022-01-16 19:44:00 36.40 kg/m2 [facility] Oxygen saturation in 2022-01-16 19:44:00 97 /min [facility] Arterial blood by Pulse oximetry Procedures Procedure Date / Time Performing Clinician Source Performed RAD ONC DAILY TREATMENT 2022-12-10 15:44:56 Provider, Unknown [facility] RAD ONC DAILY TREATMENT 2022-12-06 19:39:24 Provider, Unknown [facility] RAD ONC COURSE SUMMARY 2022-12-05 21:40:48 Provider, Unknown [facility] RAD ONC DAILY TREATMENT 2022-12-04 18:22:22 Provider, Unknown [facility] RAD ONC DAILY TREATMENT 2022-12-02 17:49:17 Provider, Unknown [facility] PET CT SKULL BASE TO MID 2022-11-28 22:32:06 Manuel Calvo [facility] THIGH URINE CULTURE 2022-11-16 13:45:00 Brandy Calvert [facility] URINALYSIS SCREEN AND 2022-11-16 11:27:00 Nehal, Manoj [facility] MICROSCOPY, WITH REFLEX TO CULTURE CBC WITH PLATELET AND 2022-11-16 09:40:00 Nehal, Manoj [facility] DIFFERENTIAL BASIC METABOLIC PANEL 2022-11-16 09:40:00 Nehal, Manoj [facility] MAGNESIUM LEVEL 2022-11-16 09:40:00 Nehal, Manoj [facility] PHOSPHORUS LEVEL 2022-11-16 09:40:00 Nehal, Manoj [facility] ESTIMATED GFR 2022-11-16 09:40:00 Brandy Calvert [facility] VALPROIC ACID LEVEL 2022-11-15 11:17:00 Cesia Chaz [facility] VITAMIN D 25 HYDROXY 2022-11-15 11:17:[address] [facility] LEVEL VITAMIN B12 LEVEL 2022-11-15 11:17:00 Brandy Calvert [facility] THYROID STIMULATING 2022-11-15 11:17:00 Brandy Calvert [facility] HORMONE T4, FREE 2022-11-15 11:17:00 Brandy Calvert [facility] VITAMIN B6 LEVEL, PLASMA 2022-11-15 11:17:00 Brandy Calvert [facility] FERRITIN LEVEL 2022-11-15 11:17:00 Brandy Calvert [facility] TOTAL IRON BINDING 2022-11-15 11:17:00 Brandy Calvert [facility] CAPACITY MRI BRAIN W WO CONTRAST 2022-11-15 10:47:00 Daly Zepeda [facility] EEG AWAKE/ASLEEP LESS 2022-11-15 06:12:29 Chaz Callaway [facility] THAN 41 MIN CBC WITH PLATELET AND 2022-11-14 12:01:00 Demand, [facility] DIFFERENTIAL COMPREHENSIVE METABOLIC 2022-11-14 12:01:00 Demand, [facility] PANEL SEDIMENTATION RATE 2022-11-14 12:01:00 Demand, [facility] C-REACTIVE PROTEIN 2022-11-14 12:01:00 Demand, [facility] ESTIMATED GFR 2022-11-14 12:01:00 Judd Camp [facility] CT HEAD WO CONTRAST 2022-11-14 08:46:38 Daly Zepeda [facility] CT HEAD WO CONTRAST 2022-11-07 13:10:30 Demand, [facility] POC GLUCOSE 2022-10-31 14:52:00 Brandy Calvert [facility] POC GLUCOSE 2022-10-31 13:20:00 NehalBrandy simon [facility] POC GLUCOSE 2022-10-31 09:09:00 NehalBrandy simon [facility] POC GLUCOSE 2022-10-31 04:46:00 NehalBrandy simon [facility] POC GLUCOSE 2022-10-31 01:28:00 NehalBrandy simon [facility] ECG 12-LEAD 2022-10-30 19:17:48 Cj Amaya [facility] POC GLUCOSE 2022-10-30 18:02:00 Brandy Calvert [facility] POC GLUCOSE 2022-10-30 14:22:00 Brandy Calvert [facility] POC GLUCOSE 2022-10-30 10:21:00 NehalBrandy simon [facility] POC GLUCOSE 2022-10-30 05:49:00 NehalBrandy simon [facility] POC GLUCOSE 2022-10-30 02:03:00 NehalBrandy simon [facility] DURABLE MEDICAL EQUIPMENT 2022-10-29 21:32:02 Remedios Duff [facility] POC GLUCOSE 2022-10-29 16:30:00 Brandy Calvert [facility] POC GLUCOSE 2022-10-29 09:57:00 Brandy Calvert [facility] ESTIMATED GFR 2022-10-29 08:48:00 [facility] POC GLUCOSE 2022-10-29 05:11:00 Brandy Calvert [facility] POC GLUCOSE 2022-10-29 00:50:00 Brandy Calvert [facility] POC GLUCOSE 2022-10-28 18:17:00 Brandy Calvert [facility] POC GLUCOSE 2022-10-28 12:40:00 Brandy Calvert [facility] POC GLUCOSE 2022-10-28 09:32:00 Brandy Calvert [facility] BASIC METABOLIC PANEL 2022-10-28 05:16:00 [facility] CBC WITH PLATELET AND 2022-10-28 05:16:00 [facility] DIFFERENTIAL IONIZED CALCIUM 2022-10-28 05:16:00 [facility] MAGNESIUM LEVEL 2022-10-28 05:16:00 [facility] PHOSPHORUS LEVEL 2022-10-28 05:16:00 [facility] ESTIMATED GFR 2022-10-28 05:16:00 [facility]OC [facility]UCOSE 2022-10-28 05:14:00 Brandy Calvert [facility] POC GLUCOSE 2022-10-28 00:48:00 Brandy Calvert [facility] POC GLUCOSE 2022-10-27 21:05:00 Brandy Calvert [facility] POC GLUCOSE 2022-10-27 16:46:00 Brandy Calvert [facility] POC GLUCOSE 2022-10-27 13:14:00 Brandy Calvert [facility] POC GLUCOSE 2022-10-27 08:38:00 Brandy Calvert [facility] POC GLUCOSE 2022-10-27 08:30:00 Brandy Calvert [facility] CT HEAD WO CONTRAST 2022-10-27 08:19:00 Chau Montenegro [facility] BASIC METABOLIC PANEL 2022-10-27 05:32:00 [facility] CBC WITH PLATELET AND 2022-10-27 05:32:00 [facility] DIFFERENTIAL IONIZED CALCIUM 2022-10-27 05:32:00 [facility] MAGNESIUM LEVEL 2022-10-27 05:32:00 [facility] PHOSPHORUS LEVEL 2022-10-27 05:32:00 [facility] ESTIMATED GFR 2022-10-27 05:32:[address] [facility] POC GLUCOSE 2022-10-27 04:42:00 Brandy Calvert [facility] POC GLUCOSE 2022-10-27 03:40:00 Nehal, Manoj [facility] POC GLUCOSE 2022-10-27 00:55:00 Nehal, Manoj [facility] POC GLUCOSE 2022-10-26 20:54:00 Nehal, Manoj [facility] POC GLUCOSE 2022-10-26 17:06:00 Nehal, Manoj [facility] XR CHEST 1 VW PORTABLE 2022-10-26 13:56:32 Luiza [facility] CBC WITH PLATELET AND 2022-10-26 12:57:00 Luiza [facility] DIFFERENTIAL POC GLUCOSE 2022-10-26 12:35:00 Nehal, Manoj [facility] POC GLUCOSE 2022-10-26 09:23:00 Nehal, Manoj [facility] CT HEAD WO CONTRAST 2022-10-26 08:52:20 Kayleigh Hall [facility] BASIC METABOLIC PANEL 2022-10-26 05:12:00 [facility] AND 2022-10-26 05:12:00 [facility] DIFFERENTIAL [facility] IONIZED CALCIUM 2022-10-26 05:12:00 [facility] 2022-10-26 05:12:00 Kian Raudelnadia Brandt [facility] PHOSPHORUS LEVEL 2022-10-26 05:12:00 Kian Raudelnadia [facility] 2022-10-26 05:12:00 Brandy Calvert [facility] POC GLUCOSE 2022-10-26 04:41:00 Brandy Calvert [facility] ECG 12-LEAD 2022-10-26 04:22:32 [facility] POC GLUCOSE 2022-10-26 01:24:00 Brandy Calvert [facility] POC GLUCOSE 2022-10-25 21:08:00 NehalBrandy simon [facility] POC GLUCOSE 2022-10-25 17:09:00 NehalBrandy simon [facility] MRI BRAIN W WO CONTRAST 2022-10-25 [facility]:05[facility] 2022-10-25 13:05:00 NehalBrandy simon [facility] XR CHEST 1 VW PORTABLE 2022-10-25 10:53:00 [facility] POC GLUCOSE 2022-10-25 09:33:00 Brandy Calvert [facility] ECG 12-LEAD 2022-10-25 07:43:30 Deanna Vargas [facility] CBC WITH PLATELET AND 2022-10-25 05:30:00 [facility]ENTIAL anbena ARTERIAL BLOOD GAS 2022-10-25 05:30:00 Deanna Vargas [facility] IONIZED CALCIUM, ARTERIAL 2022-10-25 05:30:00 Deanna Vargas [facility] BASIC METABOLIC PANEL 2022-10-25 05:29:00 Raudel Langston [facility] [place] MAGNESIUM LEVEL 2022-10-25 05:29:00 Raudel Langston spital [place] PHOSPHORUS LEVEL 2022-10-25 05:29:00 Kian Raudel [facility] ospital [place] ESTIMATED GFR 2022-10-25 05:29:00 Brandy Clavert [facility] POC GLUCOSE 2022-10-25 05:27:00 [facility] POC GLUCOSE 2022-10-25 01:16:00 [facility] Brandy [facility] XR ABDOMEN 1 VW PORTABLE 2022-10-25 00:22:27 Co, [facility] XR CHEST 1 VW PORTABLE 2022-10-25 00:22:13 Co, [facility] ARTERIAL BLOOD GAS 2022-10-24 23:38:00 Co, [facility] BASIC METABOLIC PANEL 2022-10-24 23:38:00 Co, [facility] MAGNESIUM LEVEL 2022-10-24 23:38:00 Co, [facility] spital PHOSPHORUS LEVEL 2022-10-24 23:38:00 Co, [facility] ospital LACTIC ACID LEVEL 2022-10-24 23:38:00 Co, [facility] CBC WITH PLATELET AND 2022-10-24 23:38:00 Co, [facility] DIFFERENTIAL IONIZED CALCIUM, ARTERIAL 2022-10-24 23:38:00 Co, [facility] ESTIMATED GFR 2022-10-24 23:38:00 Co, [facility] spital CT HEAD WO CONTRAST 2022-10-24 22:58:43 [facility] SURG[facility] PATHOLOGY 2022-10-24 21:39:00 [facility] REQUEST ARTERIAL LINE 2022-10-24 20:06:23 Maryam Carlton [facility] CENTRAL LINE 2022-10-24 19:48:10 Guille Hansen Ho spital CT AN ELECTIVE 2022-10-24 19:01:00 Maryam Carlton [facility] ENDOTRACHEAL AIRWAY CRANIOTOMY 2022-10-24 18:45:00 Katrin Abdullahi [facility] TRANSFUSE PLATELET 2022-10-24 10:00:00 Barry [facility] PHERESIS Marely ARTERIAL BLOOD GAS 2022-10-24 05:19:00 Tabatha Jarrett [facility] IONIZED CALCIUM, ARTERIAL 2022-10-24 05:19:[address] [facility] TYPE AND SCREEN 2022-10-24 05:18:00 [facility] BASIC METABOLIC PANEL 2022-10-24 05:18:00 Kian [facility] [place] CBC WITH PLATELET AND 2022-10-24 05:18:00 [facility] DIFFERENTIAL [place] MAGNESIUM LEVEL 2022-10-24 05:18:00 Kian [facility] Ho spital anbena PHOSPHORUS LEVEL 2022-10-24 05:18:00 Kian Raudelnadia Beckist H ospital anbena ESTIMATED GFR 2022-10-24 05:18:00 Tabatha [facility] PREPARE PLATELET PHERESIS 2022-10-24 05:18:00 Barry [facility] Marely POC GLUCOSE 2022-10-24 00:54:00 Brandy Calvert [facility] BASIC METABOLIC PANEL 2022-10-23 05:26:00 [facility] WITH [facility] AND 2022-10-23 05:26:00 [facility] DIFFERENTIAL IONIZED CALCIUM 2022-10-23 05:26:00 Tabatha [facility] MAGNESIUM LEVEL 2022-10-23 05:26:00 JarrettTabatha lincolnThe [facility] PHOSPHORUS LEVEL 2022-10-23 05:26:00 [facility] 2022-10-23 05:26:00 Jarrett, Tabatha [facility] POC GLUCOSE 2022-10-22 21:33:00 Brandy Calvert [facility] AMMONIA LEVEL 2022-10-22 19:03:00 Cj Amaya Dong [facility] VALPROIC ACID LEVEL 2022-10-22 19:03:00 Cj Amaya [facility] CT HEAD WO CONTRAST 2022-10-22 18:22:30 Chau Montenegro [facility] UNMONITORED VIDEO-EEG 12 2022-10-22 18:09:01 Raegan Sargent [facility] HRS 1MIN-26HRS ong POC GLUCOSE 2022-10-22 16:28:00 Brandy Calvert [facility] POC GLUCOSE 2022-10-22 13:29:00 Brandy Calvert [facility] POC GLUCOSE 2022-10-22 08:24:00 Brandy Calvert [facility] MAGNESIUM LEVEL 2022-10-22 06:04:00 Luiza [facility] PHOSPHORUS LEVEL 2022-10-22 06:04:00 Tabatha Jarrett [facility] IONIZED CALCIUM 2022-10-22 06:04:00 Luiza [facility] BASIC METABOLIC PANEL 2022-10-22 06:04:00 Luiza [facility] CBC WITH PLATELET AND 2022-10-22 06:04:00 Luiza [facility] DIFFERENTIAL ESTIMATED GFR 2022-10-22 06:04:[address] [facility] EEG SETUP 2022-10-22 05:32:23 Raegan Sargent [facility] POC GLUCOSE 2022-10-22 04:32:00 Brandy Calvert [facility] POC GLUCOSE 2022-10-22 00:33:00 Brandy Calvert [facility] PARTIAL THROMBOPLASTIN 2022-10-21 23:53:00 [facility] PROTHROMBIN TIME WITH INR 2022-10-21 23:53:00 [facility]au [facility] BRAIN W WO CONTRAST 2022-10-21 23:32:00 [facility] POC GLUCOSE 2022-10-21 21:14:00 NehalBrandy [facility] EEG (ROUTINE) 2022-10-21 17:43:32 Raegan Sargentricia [facility] [place] POC GLUCOSE 2022-10-21 16:55:00 Brandy Calvert [facility] CT CHEST W CONTRAST 2022-10-21 15:23:12 [facility]AST PELVIS W CONTRAST POC GLUCOSE 2022-10-21 12:44:00 Nehal, Manoj [facility] ECG 12-LEAD 2022-10-21 11:42:16 Raegan Sargent [facility] POC GLUCOSE 2022-10-21 09:54:00 Nehal, Manoj [facility] CBC WITH PLATELET AND 2022-10-21 05:28:00 [facility] DIFFERENTIAL COMPREHENSIVE METABOLIC 2022-10-21 05:28:00 [facility] PANEL ESTIMATED GFR 2022-10-21 05:28:00 [facility] Ho spital SMEAR REVIEW 2022-10-21 05:28:00 GuidoMargaux rivera Ho spital POC GLUCOSE 2022-10-21 04:46:[address] [facility] [address] HEAD WO CONTRAST 2022-10-21 03:39:00 [facility] POC [facility]SE 2022-10-21 01:09:00 [facility] CBC WITH PLATELET AND 2022-10-21 01:01:00 Raegan Sargent [facility] DIFFERENTIAL [facility] COMPREHENSIVE METABOLIC 2022-10-21 01:01:00 Raegan Sargent [facility] PANEL Liong MAGNESIUM LEVEL 2022-10-21 01:01:00 Raegan Sargent [facility] PHOSPHORUS LEVEL 2022-10-21 01:01:00 Sargent, [facility] IONIZED CALCIUM 2022-10-21 01:01:00 Arie [facility] Liong TYPE AND SCREEN 2022-10-21 01:01:00 Arie [facility] ESTIMATED GFR 2022-10-21 01:01:00 Arie [facility] POC GLUCOSE 2022-10-20 23:10:00 Margaux Guido Ho spital RAD ONC DAILY TREATMENT 2022-07-26 15:22:25 Provider, Unknown [facility] RAD ONC DAILY TREATMENT 2022-07-24 18:21:01 Provider, Unknown [facility] RAD ONC DAILY TREATMENT 2022-07-22 18:26:14 Provider, Unknown [facility] RAD ONC DAILY TREATMENT 2022-07-18 19:49:09 Provider, Unknown [facility] MRI ABDOMEN W WO CONTRAST 2022-07-16 22:30:00 Marielena Ramsay [facility] RAD ONC DAILY TREATMENT 2022-07-16 20:40:34 Provider, Unknown [facility] MRI CERVICAL SPINE W WO 2022-06-17 17:20:00 Lubna [facility] CONTRAST MRI BRAIN W WO CONTRAST 2022-06-17 17:15:00 [place] [facility] PET CT SKULL BASE TO MID 2022-05-28 18:51:40 Manuel Calvo [facility] THIGH CBC WITH PLATELET AND 2022-05-28 18:04:00 Manuel Calvo [facility] DIFFERENTIAL COMPREHENSIVE METABOLIC 2022-05-28 18:04:00 Manuel Calvo [facility] PANEL MAGNESIUM LEVEL 2022-05-28 18:04:00 [facility] 2022-05-28 18:04:00 Manuel Calvo [facility] HORMONE T3 2022-05-28 18:04:00 [facility] FREE 2022-05-28 18:04:00 [facility] ESTIMATED GFR 2022-05-28 18:04:00 [facility] MANUAL DIFFERENTIAL 2022-05-28 18:04:00 Manuel Calvo [facility] POC GLUCOSE 2022-05-28 16:26:00 Manuel Calvo Ho spital CBC WITH PLATELET AND 2022-05-01 17:53:00 Manuel Calvo [facility] DIFFERENTIAL COMPREHENSIVE METABOLIC 2022-05-01 17:53:00 Manuel Calvo [facility] PANEL MAGNESIUM LEVEL 2022-05-01 17:53:00 Manuel Calvoist Ho spital THYROID STIMULATING 2022-05-01 17:53:00 Manuel Calvo [facility] HORMONE T3 2022-05-01 17:53:00 Manuel Calvoist Ho spital T4, FREE 2022-05-01 17:53:00 Manuel Calvoist Ho spital ESTIMATED GFR 2022-05-01 17:53:00 Manuel Calvoist Ho spital CBC WITH PLATELET AND 2022-04-02 17:48:00 Manuel Calvo [facility] DIFFERENTIAL COMPREHENSIVE METABOLIC 2022-04-02 17:48:00 Manuel Calvo [facility] PANEL MAGNESIUM LEVEL 2022-04-02 17:48:00 Manuel Calvo spital THYROID STIMULATING 2022-04-02 17:48:00 Manuel Calvo [facility] HORMONE T3 2022-04-02 17:48:00 [facility], FREE 2022-04-02 17:48:00 Manuel Calvo spital ESTIMATED GFR 2022-04-02 17:48:00 Manuel Calvo spital MANUAL DIFFERENTIAL 2022-04-02 17:48:00 Manuel Calvo [facility] RAD ONC COURSE SUMMARY 2022-03-20 14:20:15 Provider, Unknown [facility] RAD ONC DAILY TREATMENT 2022-03-18 20:08:59 Provider, Unknown [facility] RAD ONC DAILY TREATMENT 2022-03-15 17:27:33 Provider, Unknown [facility] RAD ONC DAILY TREATMENT 2022-03-14 18:20:49 Provider, Unknown [facility] RAD ONC DAILY TREATMENT 2022-03-13 18:51:26 Provider, Unknown [facility] RAD ONC DAILY TREATMENT 2022-03-12 18:43:10 Provider, Unknown [facility] RAD ONC DAILY TREATMENT 2022-03-11 20:31:22 Provider, Unknown [facility] RAD ONC DAILY TREATMENT 2022-03-08 17:08:15 Provider, Unknown [facility] MRI BRAIN W WO CONTRAST 2022-03-08 16:08:00 Marielena Ramsay [facility] RAD ONC DAILY TREATMENT 2022-03-07 20:03:00 Provider, Unknown [facility] CBC WITH PLATELET AND 2022-03-06 19:42:00 Manuel Calvo [facility] DIFFERENTIAL COMPREHENSIVE METABOLIC 2022-03-06 19:42:00 Manuel Calvo [facility] PANEL MAGNESIUM LEVEL 2022-03-06 19:42:00 Manuel Calvo [facility] spital THYROID STIMULATING 2022-03-06 19:42:00 Manuel Calvo [facility] HORMONE T3 2022-03-06 19:42:00 Manuel Calvo [facility] spital T4, FREE 2022-03-06 19:42:00 Manuel Calvo [facility] spital ESTIMATED GFR 2022-03-06 19:42:00 Manuel Calvo [facility] spital MANUAL DIFFERENTIAL 2022-03-06 19:42:00 [place] [facility] RAD ONC DAILY TREATMENT 2022-03-06 18:57:31 Provider, Unknown [facility] RAD ONC DAILY TREATMENT 2022-03-05 19:29:30 Provider, Unknown [facility] RAD ONC DAILY TREATMENT 2022-03-04 18:24:12 Provider, Unknown [facility] RAD ONC DAILY TREATMENT 2022-03-01 19:46:04 Provider, Unknown [facility] RAD ONC DAILY TREATMENT 2022-02-28 20:13:22 Provider, Unknown [facility] RAD ONC DAILY TREATMENT 2022-02-27 20:28:42 Provider, Unknown [facility] RAD ONC DAILY TREATMENT 2022-02-26 20:36:08 Provider, Unknown [facility] RAD ONC DAILY TREATMENT 2022-02-25 19:36:27 Provider, Unknown [facility] RAD ONC DAILY TREATMENT 2022-02-22 20:26:13 Provider, Unknown [facility] RAD ONC DAILY TREATMENT 2022-02-21 20:31:32 Provider, Unknown [facility] RAD ONC DAILY TREATMENT 2022-02-20 20:27:20 Provider, Unknown [facility] RAD ONC DAILY TREATMENT 2022-02-19 22:25:50 Provider, Unknown [facility] RAD ONC DAILY TREATMENT 2022-02-18 20:27:27 Provider, Unknown [facility] RAD ONC DAILY TREATMENT 2022-02-15 20:09:22 Provider, Unknown [facility] RAD ONC DAILY TREATMENT 2022-02-14 20:31:50 Provider, Unknown [facility] RAD ONC DAILY TREATMENT 2022-02-13 18:38:55 Provider, Unknown [facility] RAD ONC DAILY TREATMENT 2022-02-12 20:16:34 Provider, Unknown [facility] RAD ONC DAILY TREATMENT 2022-02-11 18:34:11 Provider, Unknown [facility] RAD ONC DAILY TREATMENT 2022-02-08 20:19:58 Provider, Unknown [facility] RAD ONC DAILY TREATMENT 2022-02-07 20:02:52 Provider, Unknown [facility] RAD ONC DAILY TREATMENT 2022-02-06 21:37:52 Provider, Unknown [facility] RAD ONC DAILY TREATMENT 2022-02-05 21:43:41 Provider, Unknown [facility] CBC WITH PLATELET AND 2022-02-05 17:16:00 Manuel Calvo [facility] DIFFERENTIAL COMPREHENSIVE METABOLIC 2022-02-05 17:16:00 Manuel Calvo [facility] PANEL MAGNESIUM LEVEL 2022-02-05 17:16:00 Manuel Calvo spital THYROID STIMULATING 2022-02-05 17:16:00 Manuel Calvo [facility] HORMONE T3 2022-02-05 17:16:00 Manuel Calvo spital T4, FREE 2022-02-05 17:16:00 Manuel Calvo spital ESTIMATED GFR 2022-02-05 17:16:00 Manuel Calvo spital MANUAL DIFFERENTIAL 2022-02-05 17:16:00 [place] [facility] RAD ONC COURSE SUMMARY 2022-01-23 16:59:07 Provider, Unknown [facility] PET CT SKULL BASE TO MID 2022-01-08 14:36:07 Manuel Calvo [facility] THIGH CBC WITH PLATELET AND 2022-01-08 14:36:00 Manuel Calvo [facility] DIFFERENTIAL COMPREHENSIVE METABOLIC 2022-01-08 14:36:00 Manuel Calvo [facility] PANEL MAGNESIUM LEVEL 2022-01-08 14:36:00 Manuel Calvo Ho spital THYROID STIMULATING 2022-01-08 14:36:00 [facility], FREE 2022-01-08 14:36:00 Manuel Calvo Ho spital T4, FREE 2022-01-08 14:36:00 Manuel Calvo Ho spital ESTIMATED GFR 2022-01-08 14:36:00 Manuel Calvoist Ho spital T3 2022-01-08 14:36:00 Manuel Calvoist Ho spital ESTIMATED GFR 2022-01-08 14:20:00 Manuel Calvo Ho spital POC GLUCOSE 2022-01-08 12:53:00 Manuel Calvoist Ho spital CBC WITH PLATELET AND 2021-12-11 14:36:00 Manuel Calvo [facility] DIFFERENTIAL COMPREHENSIVE METABOLIC 2021-12-11 14:36:00 Manuel Calvo [facility] PANEL MAGNESIUM LEVEL 2021-12-11 14:36:00 Manuel Calvo Ho spital THYROID STIMULATING 2021-12-11 14:36:00 [facility] H[facility] T[facility] 2021-12-11 14:36:00 Manuel Calvo Ho spital T4, FREE 2021-12-11 14:36:00 Manuel Calvo Ho spital ESTIMATED GFR 2021-12-11 14:36:00 Manuel Calvo Ho spital CT CHEST W CONTRAST 2021-11-13 18:58:59 [facility] WITH PLATELET AND 2021-11-13 16:36:00 Manuel Calvo [facility] DIFFERENTIAL CBC WITH PLATELET AND 2021-11-13 16:36:00 Manuel Calvo [facility] DIFFERENTIAL COMPREHENSIVE METABOLIC 2021-11-13 16:36:00 Manuel Calvo [facility] PANEL MAGNESIUM LEVEL 2021-11-13 16:36:00 Manuel Calvo Ho spital THYROID STIMULATING 2021-11-13 16:36:00 [facility] H[facility] T[facility] 2021-11-13 16:36:00 Manuel Calvo Ho spital T4, FREE 2021-11-13 16:36:00 Manuel Calvo Ho spital ESTIMATED GFR 2021-11-13 16:36:00 Calvo, Manuel [facility] MANUAL DIFFERENTIAL 2021-11-13 16:36:00 [place] [facility] CBC WITH PLATELET AND 2021-10-16 14:26:00 [place] [facility] DIFFERENTIAL COMPREHENSIVE METABOLIC 2021-10-16 14:26:00 [place] [facility] PANEL MAGNESIUM LEVEL 2021-10-16 14:26:00 Manuel Calvoist Ho spital THYROID STIMULATING 2021-10-16 14:26:00 [place] [facility] HORMONE T3 2021-10-16 14:26:00 Manuel Calvoist Ho spital T4, FREE 2021-10-16 14:26:00 Manuel Calvoist Ho spital ESTIMATED GFR 2021-10-16 14:26:00 Manuel Calvo Ho spital MANUAL DIFFERENTIAL 2021-10-16 14:26:00 [place] [facility] CBC WITH PLATELET AND 2021-09-18 14:10:00 Manuel Calvo [facility] DIFFERENTIAL COMPREHENSIVE METABOLIC 2021-09-18 14:10:00 Manuel Calvo [facility] PANEL MAGNESIUM LEVEL 2021-09-18 14:10:00 Manuel Calvo Ho spital THYROID STIMULATING 2021-09-18 14:10:00 Manuel Calvo [facility] HORMONE T3 2021-09-18 14:10:00 Manuel Calvo Ho spital T4, FREE 2021-09-18 14:10:00 Manuel Calvo Ho spital ESTIMATED GFR 2021-09-18 14:10:00 Manuel Calvo Ho spital MANUAL DIFFERENTIAL 2021-09-18 14:10:00 Manuel Calvo [facility] HC COMPLETE BLD COUNT 2021-08-21 14:01:00 Manuel Calvo [facility] W/AUTO DIFF COMPREHENSIVE METABOLIC 2021-08-21 14:01:00 Manuel Calvo [facility] PANEL MAGNESIUM LEVEL 2021-08-21 14:01:00 Manuel Calvo Ho spital THYROID STIMULATING 2021-08-21 14:01:00 [place] [facility] HORMONE T3 2021-08-21 14:01:00 Manuel Calvoist Ho spital T4, FREE 2021-08-21 14:01:00 Manuel Calvo Ho spital ESTIMATED GFR 2021-08-21 14:01:00 Manuel Calvo spital MRI BRAIN W WO CONTRAST 2021-08-17 17:05:13 Manuel Calvo [facility] PET CT SKULL BASE TO MID 2021-08-17 16:18:00 Manuel Calvo [facility] THIGH POC GLUCOSE 2021-08-17 14:39:00 Manuel Calvo Ho spital HC COMPLETE BLD COUNT 2021-07-24 15:06:00 Manuel Calvo [facility] W/AUTO DIFF COMPREHENSIVE METABOLIC 2021-07-24 15:06:00 Manuel Calvo [facility] PANEL MAGNESIUM LEVEL 2021-07-24 15:06:00 Manuel Calov Ho spital THYROID STIMULATING 2021-07-24 15:06:00 Manuel Calvo [facility] HORMONE T3 2021-07-24 15:06:00 Manuel Calvo Ho spital T4, FREE 2021-07-24 15:06:00 Manuel Calvo Ho spital ESTIMATED GFR 2021-07-24 15:06:00 Manuel Calvo Ho spital HC COMPLETE BLD COUNT 2021-06-26 15:57:00 Manuel Calvo [facility] W/AUTO DIFF COMPREHENSIVE METABOLIC 2021-06-26 15:57:00 Manuel Calvo [facility] PANEL MAGNESIUM LEVEL 2021-06-26 15:57:00 Manuel Calvo Ho spital THYROID STIMULATING 2021-06-26 15:57:00 Manuel Calvo [facility] HORMONE T3 2021-06-26 15:57:00 Manuel Calvo Ho spital T4, FREE 2021-06-26 15:57:00 Manuel Calvo Ho spital ESTIMATED GFR 2021-06-26 15:57:00 Manuel Calvo Ho spital CBC WITH PLATELET AND 2021-05-29 13:57:00 Manuel Calvo [facility] DIFFERENTIAL COMPREHENSIVE METABOLIC 2021-05-29 13:57:00 Manuel Calvo [facility] PANEL MAGNESIUM LEVEL 2021-05-29 13:57:00 Manuel Calvo Ho spital THYROID STIMULATING 2021-05-29 13:57:00 Manuel Calvo [facility] [facility] T3 2021-05-29 13:57:00 Manuel Calvo [facility] T4, FREE 2021-05-29 13:57:00 [facility] 2021-05-29 13:57:00 Manuel Calvo [facility] spital MANUAL DIFFERENTIAL 2021-05-29 13:57:00 [facility]AST 2021-05-22 17:14:16 [facility]C COURSE SUMMARY 2021-04-27 19:56:56 Provider, Unknown [facility] HC COMPLETE BLD COUNT 2021-04-24 14:32:00 [place] [facility] W/AUTO DIFF COMPREHENSIVE METABOLIC 2021-04-24 14:32:00 [place] [facility] PANEL MAGNESIUM LEVEL 2021-04-24 14:32:00 Manuel Calvo [facility] spital ESTIMATED GFR 2021-04-24 14:32:00 Manuel Calvo [facility] spital RAD ONC DAILY TREATMENT 2021-04-24 13:24:35 Provider, Unknown [facility] RAD ONC DAILY TREATMENT 2021-04-23 16:45:25 Provider, Unknown [facility] RAD ONC DAILY TREATMENT 2021-04-20 16:45:46 Provider, Unknown [facility] RAD ONC DAILY TREATMENT 2021-04-19 17:14:34 Provider, Unknown [facility] RAD ONC DAILY TREATMENT 2021-04-18 17:29:35 Provider, Unknown [facility] HC COMPLETE BLD COUNT 2021-04-17 14:02:00 [place] [facility] W/AUTO DIFF COMPREHENSIVE METABOLIC 2021-04-17 14:02:00 [place] [facility] PANEL ESTIMATED GFR 2021-04-17 14:02:00 [place] [facility] spital MAGNESIUM LEVEL 2021-04-17 14:02:00 [place] [facility] RAD ONC DAILY TREATMENT 2021-04-17 13:11:43 Provider, Unknown [facility] RAD ONC DAILY TREATMENT 2021-04-16 16:51:36 Provider, Unknown [facility] RAD ONC DAILY TREATMENT 2021-04-13 17:37:41 Provider, Unknown [facility] RAD ONC DAILY TREATMENT 2021-04-12 17:27:38 Provider, Unknown [facility] RAD ONC DAILY TREATMENT 2021-04-11 17:41:13 Provider, Unknown [facility] HC COMPLETE BLD COUNT 2021-04-10 17:09:00 [place] [facility] W/AUTO DIFF COMPREHENSIVE METABOLIC 2021-04-10 17:09:00 [place] [facility] PANEL MAGNESIUM LEVEL 2021-04-10 17:09:00 Manuel Calvo [facility] spital ESTIMATED GFR 2021-04-10 17:09:00 [facility] RAD ONC DAILY TREATMENT 2021-04-10 16:18:41 Provider, Unknown [facility] RAD ONC DAILY TREATMENT 2021-04-09 17:12:42 Provider, Unknown [facility] RAD ONC DAILY TREATMENT 2021-04-04 16:46:28 Provider, Unknown [facility] RAD ONC DAILY TREATMENT 2021-04-03 16:52:47 Provider, Unknown [facility] CBC WITH PLATELET AND 2021-04-02 14:42:00 Manuel Calvo [facility] DIFFERENTIAL COMPREHENSIVE METABOLIC 2021-04-02 14:42:00 [place] [facility] PANEL MAGNESIUM LEVEL 2021-04-02 14:42:00 Manuel [facility]voist [facility] ESTIMATED GFR 2021-04-02 14:42:00 Manuel Calvo [facility] spital MANUAL DIFFERENTIAL 2021-04-02 14:42:00 Manuel Calvo [facility] RAD ONC DAILY TREATMENT 2021-04-02 13:51:59 Provider, Unknown [facility] RAD ONC DAILY TREATMENT 2021-03-30 16:51:51 Provider, Unknown [facility] RAD ONC DAILY TREATMENT 2021-03-29 17:12:14 Provider, Unknown [facility] RAD ONC DAILY TREATMENT 2021-03-28 16:14:16 Provider, Unknown [facility] RAD ONC DAILY TREATMENT 2021-03-27 21:51:17 Provider, Unknown [facility] COVID-19 ANTI-SPIKE IGG 2021-03-27 10:00:00 Lexi [facility] ANTIBODY TITER COVID-19 SEROLOGY PATIENT 2021-03-27 10:00:[address] [facility]ILLANCE HC COMPLETE BLD COUNT 2021-03-27 09:31:00 [facility] DIFF BASIC METABOLIC PANEL 2021-03-27 09:31:[address] [facility] MAGNESIUM LEVEL 2021-03-27 09:31:00 [facility] ospital PHOSPHORUS LEVEL 2021-03-27 09:31:00 [facility] HEPATIC FUNCTION PANEL 2021-03-27 09:31:00 [facility] URIC ACID LEVEL 2021-03-27 09:31:00 [facility] ospital LDH 2021-03-27 09:31:00 [facility] ospital ESTIMATED GFR 2021-03-27 09:31:[facility] osp[facility] CT CHEST WO CONTRAST 2021-03-27 03:19:25 [facility] COVID-19 QUALITATIVE 2021-03-27 02:00:00 Manuel Calvo [facility] RT-PCR ECG 12-LEAD 2021-03-27 01:39:50 [facility] WITH PLATELET AND 2021-03-26 16:01:00 Manuel Calvo [facility] DIFFERENTIAL COMPREHENSIVE METABOLIC 2021-03-26 16:01:00 Manuel Calvo [facility] PANEL MAGNESIUM LEVEL 2021-03-26 16:01:00 Manuel [facility]voist [facility] spital ESTIMATED GFR 2021-03-26 16:01:00 [facility] MANUAL DIFFERENTIAL 2021-03-26 16:01:00 Manuel Calvo [facility] RAD ONC DAILY TREATMENT 2021-03-26 14:12:43 Provider, Unknown [facility] HC COMPLETE BLD COUNT 2021-03-19 14:23:00 Manuel Calvo [facility] W/AUTO DIFF COMPREHENSIVE METABOLIC 2021-03-19 14:23:00 Manuel Calvo [facility] PANEL MAGNESIUM LEVEL 2021-03-19 14:23:00 Manuel [facility]voist [facility] ESTIMATED GFR 2021-03-19 14:23:00 [facility] COMPLETE BLD COUNT 2021-03-12 16:45:00 Manuel Calvo [facility] W/AUTO DIFF COMPREHENSIVE METABOLIC 2021-03-12 16:45:00 [place] [facility] PANEL MAGNESIUM LEVEL 2021-03-12 16:45:00 Manuel [facility]voist [facility] ESTIMATED GFR 2021-03-12 16:45:00 Manuel Calvo [facility] spital HC COMPLETE BLD COUNT 2021-03-05 13:00:00 Manuel Calvo [facility] W/AUTO DIFF COMPREHENSIVE METABOLIC 2021-03-05 13:00:00 [place] [facility] PANEL MAGNESIUM LEVEL 2021-03-05 13:00:00 Manuel [facility]voist [facility] ESTIMATED GFR 2021-03-05 13:00:00 Manuel [facility]voist [facility] MRI BRAIN W WO CONTRAST 2021-02-22 [facility]:35[facility] 2021-02-07 16:11:00 [place] [facility] ABDOMEN W CONTRAST PELVIS W CONTRAST XR CHEST 1 VW PORTABLE 2021-01-29 20:03:00 Marta Salas [facility] CYTOLOGY 2021-01-29 19:18:00 Donta Lynn [facility] (NON-GYNECOLOGICAL) REQUEST CYTOLOGY 2021-01-29 19:01:00 Donta Lynn [facility] (NON-GYNECOLOGICAL) REQUEST CT AN ELECTIVE 2021-01-29 18:34:31 Hugh Damon [facility] ospital ENDOTRACHEAL AIRWAY BRONCHOSCOPY 2021-01-29 18:05:00 Donta Lynn [facility] US, ENDOBRONCHIAL 2021-01-29 18:05:00 Donta Lynn [facility] ABO AND RH CONFIRMATION 2021-01-29 15:18:00 Donta Lynn [facility] BY PROTOCOL COVID-19 QUALITATIVE 2021-01-25 16:57:00 Donta Lynn [facility] RT-PCR TYPE AND SCREEN 2021-01-25 16:57:00 Donta Lynn [facility] PROTHROMBIN TIME WITH INR 2021-01-25 16:57:00 Donta Lynn [facility] PARTIAL THROMBOPLASTIN 2021-01-25 16:57:00 Donta Lynn [facility] TIME (PTT) COMPREHENSIVE METABOLIC 2021-01-25 16:57:00 Donta Lynn [facility] PANEL HC COMPLETE BLD COUNT 2021-01-25 16:57:00 Donta Lynn [facility] W/AUTO DIFF ESTIMATED GFR 2021-01-25 16:57:00 Donta Lynn [facility] ECG 12-LEAD 2021-01-25 16:45:56 Donta Lynn [facility] Plan of Care Planned Activity Planned Date Details Comments Source Future Scheduled 2022-12-10 Screening for [facility] Test 12:31:03 malignant neoplasm of colon (procedure) [code = 721379731] Future Scheduled 2022-12-10 Screening for [facility] Test 12:31:03 malignant neoplasm of colon (procedure) [code = 988455594] Future Scheduled 2022-12-10 Screening for [facility] Test 12:31:03 malignant neoplasm of colon (procedure) [code = 486811388] Future Scheduled 2022-12-10 Pneumococcal Vaccine: [facility] Test 12:31:03 Pediatrics (0 to 5 Years) and At-Risk Patients (6 to 64 Years) (1 - PCV) [code = Pneumococcal Vaccine: Pediatrics (0 to 5 Years) and At-Risk Patients (6 to 64 Years) (1 - PCV)] Future Scheduled 2022-12-10 SHINGLES VACCINES (1 Met [facility] Test 12:31:03 of 2) [code = SHINGLES VACCINES (1 of 2)] Future Scheduled 2022-12-10 Screening for [facility] Test 12:31:03 malignant neoplasm of cervix (procedure) [code = 890811038] Future Scheduled 2022-12-10 BREAST CANCER [facility] Test 12:31:03 SCREENING [code = BREAST CANCER SCREENING] Future Scheduled 2022-12-10 Screening for [facility] Test 12:31:03 malignant neoplasm of colon (procedure) [code = 575218963] Future Scheduled 2022-12-10 Screening for [facility] Test 12:31:03 malignant neoplasm of colon (procedure) [code = 388127312] Future Scheduled 2022-12-10 COVID-19 VACCINE (3 - [facility] Test 12:31:03 Pfizer risk series) [code = COVID-19 VACCINE (3 - Pfizer risk series)] Future Scheduled 2022-12-10 HEPATITIS B VACCINES Met [facility] Test 12:31:03 (1 of 3 - Risk 3-dose series) [code = HEPATITIS B VACCINES (1 of 3 - Risk 3-dose series)] Future Scheduled 2022-12-10 INFLUENZA VACCINE Method [facility] Test 12:31:03 [code = INFLUENZA VACCINE] Future Scheduled 2022-11-13 Screening for [facility] Test 07:50:54 malignant neoplasm of colon (procedure) [code = 914657532] Future Scheduled 2022-11-13 Screening for [facility] Test 07:50:54 malignant neoplasm of colon (procedure) [code = 845533453] Future Scheduled 2022-11-13 Screening for [facility] Test 07:50:54 malignant neoplasm of colon (procedure) [code = 201742403] Future Scheduled 2022-11-13 Pneumococcal Vaccine: [facility] Test 07:50:54 Pediatrics (0 to 5 Years) and At-Risk Patients (6 to 64 Years) (1 - PCV) [code = Pneumococcal Vaccine: Pediatrics (0 to 5 Years) and At-Risk Patients (6 to 64 Years) (1 - PCV)] Future Scheduled 2022-11-13 SHINGLES VACCINES (1 Met [facility] Test 07:50:54 of 2) [code = SHINGLES VACCINES (1 of 2)] Future Scheduled 2022-11-13 Screening for [facility] Test 07:50:54 malignant neoplasm of cervix (procedure) [code = 849616742] Future Scheduled 2022-11-13 BREAST CANCER [facility] Test 07:50:54 SCREENING [code = BREAST CANCER SCREENING] Future Scheduled 2022-11-13 Screening for [facility] Test 07:50:54 malignant neoplasm of colon (procedure) [code = 777927205] Future Scheduled 2022-11-13 Screening for [facility] Test 07:50:54 malignant neoplasm of colon (procedure) [code = 824688273] Future Scheduled 2022-11-13 COVID-19 VACCINE (3 - [facility] Test 07:50:54 Pfizer risk series) [code = COVID-19 VACCINE (3 - Pfizer risk series)] Future Scheduled 2022-11-13 HEPATITIS B VACCINES Met [facility] Test 07:50:54 (1 of 3 - Risk 3-dose series) [code = HEPATITIS B VACCINES (1 of 3 - Risk 3-dose series)] Future Scheduled 2022-11-13 INFLUENZA VACCINE Method [facility] Test 07:50:54 [code = INFLUENZA VACCINE] Future Scheduled 2022-11-06 Screening for [facility] Test 08:40:04 malignant neoplasm of colon (procedure) [code = 762455708] Future Scheduled 2022-11-06 Screening for [facility] Test 08:40:04 malignant neoplasm of colon (procedure) [code = 154366209] Future Scheduled 2022-11-06 Screening for [facility] Test 08:40:04 malignant neoplasm of colon (procedure) [code = 293276974] Future Scheduled 2022-11-06 Pneumococcal Vaccine: [facility] Test 08:40:04 Pediatrics (0 to 5 Years) and At-Risk Patients (6 to 64 Years) (1 - PCV) [code = Pneumococcal Vaccine: Pediatrics (0 to 5 Years) and At-Risk Patients (6 to 64 Years) (1 - PCV)] Future Scheduled 2022-11-06 SHINGLES VACCINES (1 Met [facility] Test 08:40:04 of 2) [code = SHINGLES VACCINES (1 of 2)] Future Scheduled 2022-11-06 Screening for [facility] Test 08:40:04 malignant neoplasm of cervix (procedure) [code = 118196702] Future Scheduled 2022-11-06 BREAST CANCER [facility] Test 08:40:04 SCREENING [code = BREAST CANCER SCREENING] Future Scheduled 2022-11-06 Screening for [facility] Test 08:40:04 malignant neoplasm of colon (procedure) [code = 598803967] Future Scheduled 2022-11-06 Screening for [facility] Test 08:40:04 malignant neoplasm of colon (procedure) [code = 015513614] Future Scheduled 2022-11-06 COVID-19 VACCINE (3 - [facility] Test 08:40:04 Pfizer risk series) [code = COVID-19 VACCINE (3 - Pfizer risk series)] Future Scheduled 2022-11-06 HEPATITIS B VACCINES Met [facility] Test 08:40:04 (1 of 3 - Risk 3-dose series) [code = HEPATITIS B VACCINES (1 of 3 - Risk 3-dose series)] Future Scheduled 2022-11-06 INFLUENZA VACCINE Method [facility] Test 08:40:04 [code = INFLUENZA VACCINE] Future Scheduled 2022-10-17 Screening for [facility] Test 15:03:07 malignant neoplasm of colon (procedure) [code = 590653532] Future Scheduled 2022-10-17 Screening for [facility] Test 15:03:07 malignant neoplasm of colon (procedure) [code = 450048239] Future Scheduled 2022-10-17 Screening for [facility] Test 15:03:07 malignant neoplasm of colon (procedure) [code = 937553713] Future Scheduled 2022-10-17 Pneumococcal Vaccine: [facility] Test 15:03:07 Pediatrics (0 to 5 Years) and At-Risk Patients (6 to 64 Years) (1 - PCV) [code = Pneumococcal Vaccine: Pediatrics (0 to 5 Years) and At-Risk Patients (6 to 64 Years) (1 - PCV)] Future Scheduled 2022-10-17 SHINGLES VACCINES (1 Met [facility] Test 15:03:07 of 2) [code = SHINGLES VACCINES (1 of 2)] Future Scheduled 2022-10-17 Screening for [facility] Test 15:03:07 malignant neoplasm of cervix (procedure) [code = 721545349] Future Scheduled 2022-10-17 BREAST CANCER [facility] Test 15:03:07 SCREENING [code = BREAST CANCER SCREENING] Future Scheduled 2022-10-17 Screening for [facility] Test 15:03:07 malignant neoplasm of colon (procedure) [code = 735336062] Future Scheduled 2022-10-17 Screening for [facility] Test 15:03:07 malignant neoplasm of colon (procedure) [code = 007587785] Future Scheduled 2022-10-17 COVID-19 VACCINE (3 - [facility] Test 15:03:07 Pfizer risk series) [code = COVID-19 VACCINE (3 - Pfizer risk series)] Future Scheduled 2022-10-17 HEPATITIS B VACCINES Met [facility] Test 15:03:07 (1 of 3 - Risk 3-dose series) [code = HEPATITIS B VACCINES (1 of 3 - Risk 3-dose series)] Future Scheduled 2022-10-17 INFLUENZA VACCINE Method [facility] Test 15:03:07 [code = INFLUENZA VACCINE] Future Scheduled 2022-01-21 HEPATITIS B VACCINES Met [facility] Test 11:09:47 (1 of 3 - 3-dose series) [code = HEPATITIS B VACCINES (1 of 3 - 3-dose series)] Future Scheduled 2022-01-21 Pneumococcal Vaccine: [facility] Test 11:09:47 Pediatrics (0 to 5 Years) and At-Risk Patients (6 to 64 Years) (1 - PCV) [code = Pneumococcal Vaccine: Pediatrics (0 to 5 Years) and At-Risk Patients (6 to 64 Years) (1 - PCV)] Future Scheduled 2022-01-21 SHINGLES VACCINES (1 Met [facility] Test 11:09:47 of 2) [code = SHINGLES VACCINES (1 of 2)] Future Scheduled 2022-01-21 Screening for [facility] Test 11:09:47 malignant neoplasm of cervix (procedure) [code = 047601838] Future Scheduled 2022-01-21 BREAST CANCER [facility] Test 11:09:47 SCREENING [code = BREAST CANCER SCREENING] Future Scheduled 2022-01-21 COLONOSCOPY SCREENING [facility] Test 11:09:47 [code = COLONOSCOPY SCREENING] Future Scheduled 2022-01-21 COVID-19 VACCINE (3 - [facility] Test 11:09:47 Pfizer risk series) [code = COVID-19 VACCINE (3 - Pfizer risk series)] Future Scheduled 2022-01-21 INFLUENZA VACCINE Method [facility] Test 11:09:47 [code = INFLUENZA VACCINE] Encounters Start End Encounter Admission Attending Care Care Encounter Source Date/Time Date/Time Type Type Clinicians Facility Department ID 2022-12-10 2022-12-10 [facility] 1.2.840.1 [id number] Methodi 09:30:00 09:30:00 Encounter Bhavin 94316.1.[address] 3.430.2.7 Hospit a .3.948915 l .8 2022-12-10 2022-12-10 [facility] 1.2.840.1 [id number] Methodi 01:00:00 01:00:00 Encounter Marielena Tirado 93918.1.[address] 3.430.2.7 Hospit a .3.187667 l .8 2022-12-10 2022-12-10 Outpatient [facility], [facility] [id number] [address] [place] 00:00:00 00:00:00 MARIELENA [address] 2022-12-10 2022-12-10 Outpatient NISHADUSTY [facility] [id number] [place] 00:00:00 00:00:[address] 2022-12-10 2022-12-10 Orders Provider, 1.2.840.1 [id number] Methodi 00:00:00 00:00:00 Only Unknown 19811.1.[address] 3.430.2.7 Hospit a .3.894358 l .8 2022-12-09 2022-12-09 Office [facility], 1.2.840.1 [id number] Methodi 09:45:00 11:08:00 Visit Katrin Jimenez 61567.1.[address] 3.430.2.7 Hospit a .3.460406 l .8 2022-12-09 2022-12-09 Outpatient [facility] [id number] [address] [place] 00:00:00 00:00:00 MARIELENA [address] 2022-12-09 2022-12-09 Outpatient BRADLY, [facility] [id number] 035 [place] 00:00:00 00:00:00 KATRIN [address] 2022-12-06 2022-12-06 [facility], 1.2.840.1 [id number] Methodi 13:26:11 13:26:11 Encounter Marielena Tirado 48914.1.[address] 3.430.2.7 Hospit a .3.076338 l .8 2022-12-06 2022-12-06 Outpatient [facility] [id number] 758 [place] 00:00:00 00:00:00 MARIELENA [address] 2022-12-06 2022-12-06 Orders Provider, 1.2.840.1 [id number] [id number] Methodi 00:00:00 00:00:00 Only Unknown 41787.1.[address] 3.430.2.7 Hospit a .3.251124 l .8 2022-12-05 2022-12-05 Orders Umoru, 1.2.840.1 [id number] Methodi 00:00:00 00:00:00 Only Cecil 18865.1.1 022 s t 3.430.2.7 Hospit a .3.066811 l .8 2022-12-04 2022-12-04 [facility] 1.2.840.1 [id number] Methodi 13:01:29 13:01:29 Encounter Marielena RamMichael 64113.1.[address] 3.430.2.7 Hospit a .3.153309 l .8 2022-12-04 2022-12-04 Outpatient [facility] [id number] [address] [place] [address] 00:00:00 00:00:00 MARIELENA [address] 2022-12-04 2022-12-04 Orders Provider, 1.2.840.1 [id number] 2100 [id number] Methodi 00:00:00 00:00:00 Only Unknown 44145.1.[address] 3.430.2.7 Hospit a .3.433780 l .8 2022-12-03 2022-12-03 Orders [facility], 1.2.840.1 [id number] Methodi 00:00:00 00:00:00 Only Prawalkeryolai 00374.1.[address] 3.430.2.7 Hospit a .3.653937 l .8 2022-12-02 2022-12-02 Office Manuel Calvo 1.2.840.1 [id number] Methodi 15:00:00 15:55:[address] 3.430.2.7 Hospit a .3.227063 l .8 2022-12-02 2022-12-02 Orders Provider, 1.2.840.1 [id number] 2100 [id number] Methodi 00:00:00 00:00:00 Only Unknown 91971.1.[address] 3.430.2.7 Hospit a .3.646621 l .8 2022-12-02 2022-12-02 Outpatient MANUEL CALVO [facility] 2100 [id number] [place] 00:00:00 00:00:[address] 2022-11-28 2022-11-28 Hospital Manuel Calvo 1.2.840.1 [id number] Methodi 15:37:07 23:59:[address] 3.430.2.7 Hospit a .3.115596 l .8 2022-11-28 2022-11-28 Outpatient MANUEL CALVO [facility] 2100 [id number] [place] 00:00:00 00:00:[address] 2022-11-26 2022-11-26 Orders Elio, 1.2.840.1 [id number] Methodi 00:00:00 00:00:00 Only Sarina 63936.1.[address] 3.430.2.7 Hospit a .3.837961 l .8 2022-11-18 2022-11-18 Telephone Asked, No 1.2.840.1 [id number] Methodi 00:00:00 00:00:[address] 3.430.2.7 Hospit a .3.702220 l .8 2022-11-13 2022-11-16 [facility] Judd Luiza 1.2.840.1 [id number] Methodi 20:13:00 19:12:00 Encounter Katrin Abdullahi 91921.1.[address] NehalBrandy 3.430.2.7 Hospita .3.715798 l .8 2022-11-13 2022-11-16 Inpatient [facility] [id number] 5147 [place] 00:00:00 00:00:[address] BRANDY [address] 2022-11-14 2022-11-14 Hospital [facility] 1.2.840.1 [id number] Methodi 14:00:00 14:00:00 Encounter Marielena Tirado 53729.1.[address] 3.430.2.7 Hospit a .3.380107 l .8 2022-11-14 2022-11-14 [facility], Marielena Tirado 1.2.840.1 [id number] Methodi 13:00:00 13:00:00 Encounter Margaret Cowan 29040.1.[address] 3.430.2.7 Hospit a .3.847317 l .8 2022-11-14 2022-11-14 [facility], 1.2.840.1 [id number] Methodi 08:30:00 08:30:00 Encounter Marielena Tirado 79245.1.[address] 3.430.2.7 Hospit a .3.261128 l .8 2022-11-14 2022-11-14 Outpatient [facility] [id number] [address] [place] 00:00:00 00:00:00 MARIELENA [address] 2022-11-14 2022-11-14 Outpatient [facility] [id number] 519 [place] 00:00:00 00:00:00 MARIELENA [address] 2022-11-11 2022-11-11 [facility], 1.2.840.1 [id number] Methodi 01:00:00 01:00:00 Encounter Marielena Tirado 05031.1.[address] 3.430.2.7 Hospit a .3.698289 l .8 2022-11-11 2022-11-11 [facility], 1.2.840.1 [id number] [place] 00:00:00 00:00:00 Encounter MARIELENA 55066.1.[address] .3.246339 .8 2022-11-07 2022-11-07 [facility], 1.2.840.1 [id number] Methodi 06:04:00 15:41:00 Encounter Kne 79588.1.[address] 3.430.2.7 Hospit a .3.293602 l .8 2022-11-07 2022-11-07 [facility], 1.2.840.1 [id number] [place] 00:00:00 00:00:00 Encounter KEN 37609.1.[address] .3.273119 .8 2022-11-06 2022-11-06 [facility], 1.2.840.1 [id number] 2100 [id number] Methodi 00:00:00 00:00:00 Marielena Tirado [address]01.1.[address] 3.430.2.7 Hospit a .3.731672 l .8 2022-11-06 2022-11-06 [facility], 1.2.840.1 [id number] 2100 [id number] Methodi 00:00:00 00:00:00 Marielena Tirado [address]803.1.[address] 3.430.2.7 Hospit a .3.856867 l .8 2022-11-05 2022-11-05 [facility], 1.2.840.1 [id number] Methodi 09:50:12 13:38:49 Encounter Marielena Tirado 75493.1.[address] 3.430.2.7 Hospit a .3.553359 l .8 2022-11-05 2022-11-05 [facility], 1.2.840.1 [id number] [place] 00:00:00 00:00:00 Encounter MARIELENA 34841.1.[address] .3.851139 .8 2022-11-05 2022-11-05 Eloise Guillermo 1.2.840.1 [id number] Methodi 00:00:00 00:00:00 Only Margaret 41441.1.[address] 3.430.2.7 Hospit a .3.845099 l .8 2022-11-05 2022-11-05 Eloise Guillermo 1.2.840.1 [id number] Methodi 00:00:00 00:00:00 Only Margaret 71939.1.[address] 3.430.2.7 Hospit a .3.967435 l .8 2022-11-01 2022-11-01 Telephone Manuel Calvo 1.2.840.1 [id number] Methodi 00:00:00 00:00:[address] 3.430.2.7 Hospit a .3.170749 l .8 2022-11-01 2022-11-01 Telephone Calvo Manuel 1.2.840.1 [id number] Methodi 00:00:00 00:00:[address] 3.430.2.7 Hospit a .3.557128 l .8 2022-10-20 2022-10-31 [facility] 1.2.840.1 [id number] Methodi 18:01:00 13:10:00 Encounter Brandy Calvert Dany 97464.1.[address] 3.430.2.7 Hospit a .3.783489 l .8 2022-10-31 2022-10-31 Telephone Charanjitjesus, 1.2.840.1 [id number] [id number] Methodi 00:00:00 00:00:[address] Dong 3.430.2.7 Hospit a .3.185450 l .8 2022-10-31 2022-10-31 Telephone Monique, 1.2.840.1 [id number] 2100 [id number] Methodi 00:00:00 00:00:[address] Dong 3.430.2.7 Hospit a .3.879399 l .8 2022-10-20 2022-10-31 [facility] 504 [id number] 7[address] [place] 00:00:00 00:00:00 Encounter BRANDY [address] 2022-10-24 2022-10-24 Anesthesia Guille Hansen 1.2.840.1 [id number] Methodi 13:40:00 18:04:00 Event Jessica Wilkins 12888.1.[address] 3.430.2.7 Hospit a .3.007424 l .8 2022-10-24 2022-10-24 Anesthesia Guille Hansen 1.2.840.1 [id number] Methodi 13:40:00 18:04:00 Event Jessica Wilkins 11645.1.[address] 3.430.2.7 Hospit a .3.361897 l .8 2022-10-24 2022-10-24 Surgery Bradly, 1.2.840.1 [id number] 057568 8717 Methodi 13:00:00 17:55:[address]1.1.[address] 3.430.2.7 Hospit a .3.747280 l .8 2022-10-24 2022-10-24 Surgery Bradly, 1.2.840.1 [id number] 034961 0375 Methodi 13:00:00 17:55:[address]014.1.[address] 3.430.2.7 Hospit a .3.096698 l .8 2022-10-20 2022-10-20 Travel 1.2.840.1 1.2.527.182 5504 601117 Methodi 00:00:00 00:00:[address] 3.430.2.7 0.2.7.3.698 Ho spita .3.090065 084.8 l .8 2022-10-20 2022-10-20 Travel 1.2.840.1 1.2.698.219 1627 809138 Methodi 00:00:00 00:00:[address] 3.430.2.7 0.2.7.3.698 Ho spita .3.914801 084.8 l .8 2022-05-01 2022-08-13 Office Manuel Calvo 1.2.840.1 [id number] 826 [id number] Methodi 11:40:00 13:58:[address] 3.430.2.7 Hospit a .3.730265 l .8 2022-05-01 2022-08-13 Office Manuel Calvo 1.2.840.1 [id number] 533 7461765 Methodi 11:40:00 13:58:[address] 3.430.2.7 Hospit a .3.918085 l .8 2022-07-26 2022-07-26 [facility] 1.2.840.1 [id number] 87665 94843 Methodi 10:00:00 10:22:24 Encounter Edward B. 87490.1.[address] 3.430.2.7 Hospit a .3.143533 l .8 2022-07-26 2022-07-26 [facility] 1.2.840.1 [id number] 07063 24621 Methodi 10:00:00 10:22:24 Encounter Edward B. 01460.1.[address] 3.430.2.7 Hospit a .3.490715 l .8 2022-07-26 2022-07-26 Telephone Manuel Calvo 1.2.840.1 [id number] 2 [id number] Methodi 00:00:00 00:00:[address] 3.430.2.7 Hospit a .3.950544 l .8 2022-07-26 2022-07-26 Orders Provider, 1.2.840.1 [id number] 2100 783515 Methodi 00:00:00 00:00:00 Only Unknown 14526.1.[address] 3.430.2.7 Hospit a .3.185341 l .8 2022-07-26 2022-07-26 Telephone Manuel Calvo 1.2.840.1 [id number] 2 [id number] Methodi 00:00:00 00:00:[address] 3.430.2.7 Hospit a .3.731026 l .8 2022-07-26 2022-07-26 Orders Provider, 1.2.840.1 [id number] 2100 249544 Methodi 00:00:00 00:00:00 Only Unknown 78050.1.[address] 3.430.2.7 Hospit a .3.152828 l .8 2022-07-242022-07-24 [facility], 1.2.840.1 [id number] 55834 12960 Methodi 12:49:05 13:21:00 Encounter Edyary Ramires. 68765.1.[address] 3.430.2.7 Hospit a .3.115436 l .8 2022-07-24 2022-07-24 [facility], 1.2.840.1 [id number] 21001 04715 Methodi 12:49:05 13:21:00 Encounter Edyary Ramires. 32466.1.[address] 3.430.2.7 Hospit a .3.517334 l .8 2022-07-24 2022-07-24 Orders Provider, 1.2.840.1 [id number] 2100 369620 Methodi 00:00:00 00:00:00 Only Unknown 06883.1.[address] 3.430.2.7 Hospit a .3.317368 l .8 2022-07-24 2022-07-24 Orders Provider, 1.2.840.1 [id number] 2100 994826 Methodi 00:00:00 00:00:00 Only Unknown 67402.1.[address] 3.430.2.7 Hospit a .3.058930 l .8 2022-07-22 2022-07-22 [facility], 1.2.840.1 [id number] 50231 Methodi 13:00:00 13:26:12 Encounter Edyary Ramires. 23641.1.[address] 3.430.2.7 Hospit a .3.228673 l .8 2022-07-22 2022-07-22 [facility], 1.2.840.1 [id number] 08980 Methodi 13:00:00 13:26:12 Encounter Edyary Ramires. 78695.1.[address] 3.430.2.7 Hospit a .3.690119 l .8 2022-07-22 2022-07-22 Orders Provider, 1.2.840.1 [id number] 2100 407294 Methodi 00:00:00 00:00:00 Only Unknown 26088.1.[address] 3.430.2.7 Hospit a .3.921691 l .8 2022-07-22 2022-07-22 Orders [facility] 1.2.840.1 [id number] 2100 153616 Methodi 00:00:00 00:00:00 Only Unknown 37387.1.[address] 3.430.2.7 Hospit a .3.785915 l .8 2022-07-18 2022-07-19 [facility] 1.2.840[facility]1 97251 1011 [id number] Methodi 13:30:00 08:04:51 Encounter Colleen Mcelroy 89470.1.[address] 3.430.2.7 Hospit a .3.314229 l .8 2022-07-18 2022-07-19 [facility] Marielena Ram. 1.2.840.1 98838 1011 [id number] Methodi 13:30:00 08:04:51 Encounter Colleen Mcelroy 41599.1.[address] 3.430.2.7 Hospit a .3.979238 l .8 2022-07-19 2022-07-19 Telephone Salvatore 1.2.840.1 [id number] 059 7893271 Methodi 00:00:00 00:00:00 Magui Ram 33738.1.[address] 3.430.2.7 Hospit a .3.216681 l .8 2022-07-19 2022-07-19 Orders Manuel Calvo 1.2.840.1 490142501 739 2151989 Methodi 00:00:00 00:00:[address] 3.430.2.7 Hospit a .3.280548 l .8 2022-07-19 2022-07-19 Telephone Salvatore 1.2.840.1 258866691 885 [id number] Methodi 00:00:00 00:00:[address] Magui Ram [address]16.1.[address] 3.430.2.7 Hospit a .3.122198 l .8 2022-07-19 2022-07-19 Orders Manuel Calvo 1.2.840.1 176911259 388 9621188 Methodi 00:00:00 00:00:[address] 3.430.2.7 Hospit a .3.878773 l .8 2022-07-18 2022-07-18 [facility], 1.2.840.1 [id number] 68645 13170 Methodi 13:15:00 13:49:09 Encounter Marielena Tirado 77804.1.[address] 3.430.2.7 Hospit a .3.458477 l .8 2022-07-18 2022-07-18 [facility], 1.2.840.1 [id number] 63569 Methodi 13:15:00 13:49:09 Encounter Marielena Tirado 57114.1.[address] 3.430.2.7 Hospit a .3.415297 l .8 2022-07-18 2022-07-18 Travel 1.2.840.1 1.2.960.658 1881 836685 Methodi 00:00:00 00:00:[address] 3.430.2.7 0.2.7.3.698 Ho spita .3.440700 084.8 l .8 2022-07-18 2022-07-18 Orders Provider, 1.2.840.1 [id number] 2099 351032 Methodi 00:00:00 00:00:00 Only Unknown 27182.1.[address] 3.430.2.7 Hospit a .3.581718 l .8 2022-07-18 2022-07-18 Travel 1.2.840.1 1.2.840.086 5169 785311 Methodi 00:00:00 00:00:[address] 3.430.2.7 0.2.7.3.698 Ho spita .3.407166 084.8 l .8 2022-07-18 2022-07-18 Orders Provider, 1.2.840.1 [id number] 2099758 Methodi 00:00:00 00:00:00 Only Unknown 66083.1.[address] 3.430.2.7 Hospit a .3.253882 l .8 2022-07-16 2022-07-16 [facility], 1.2.840.1 [id number] 02332 Methodi 15:17:21 23:59:00 Encounter Marielena Tirado 99627.1.[address] 3.430.2.7 Hospit a .3.996644 l .8 2022-07-16 2022-07-16 [facility], 1.2.840.1 [id number] 94064 Methodi 15:17:21 23:59:00 Encounter Marielena Tirado 82067.1.[address] 3.430.2.7 Hospit a .3.474601 l .8 2022-07-16 2022-07-16 [facility], 1.2.840.1 [id number] 92936 Methodi 13:00:00 14:40:33 Encounter Marielena Ram. 80388.1.[address] 3.430.2.7 Hospit a .3.369480 l .8 2022-07-16 2022-07-16 [facility], 1.2.840.1 265924294 21001 46258 Methodi 13:00:00 14:40:33 Encounter Marielena Ram. 99688.1.[address] 3.430.2.7 Hospit a .3.019954 l .8 2022-07-16 2022-07-16 Travel 1.2.840.1 1.2.187.543 8442 503565 Methodi 00:00:00 00:00:[address] 3.430.2.7 0.2.7.3.698 Ho spita .3.177130 084.8 l .8 2022-07-16 2022-07-16 Orders Provider, 1.2.840.1 [id number] 2099 435245 Methodi 00:00:00 00:00:00 Only Unknown 00213.1.[address] 3.430.2.7 Hospit a .3.314357 l .8 2022-07-16 2022-07-16 Travel 1.2.840.1 1.2.941.096 0325 495442 Methodi 00:00:00 00:00:[address] 3.430.2.7 0.2.7.3.698 Ho spita .3.159752 084.8 l .8 2022-07-16 2022-07-16 Orders Provider, 1.2.840.1 [id number] 2099563 Methodi 00:00:00 00:00:00 Only Unknown 52740.1.[address] 3.430.2.7 Hospit a .3.084789 l .8 2022-07-11 2022-07-11 Travel 1.2.840.1 1.2.609.036 1705 157890 Methodi 00:00:00 00:00:[address] 3.430.2.7 0.2.7.3.698 Ho spita .3.604130 084.8 l .8 2022-07-11 2022-07-11 Travel 1.2.840.1 1.2.910.112 7549 048321 Methodi 00:00:00 00:00:[address] 3.430.2.7 0.2.7.3.698 Ho spita .3.607198 084.8 l .8 2022-07-10 2022-07-10 [facility] 1.2.840.1 [id number] 85277 Methodi 07:00:00 10:07:00 Encounter Marielena RamMichael 48870.1.[address] 3.430.2.7 Hospit a .3.020424 l .8 2022-07-10 2022-07-10 [facility] 1.2.840.1 [id number] 20415 Methodi 07:00:00 10:07:00 Encounter Marielena RamMichael 67574.1.[address] 3.430.2.7 Hospit a .3.456498 l .8 2022-07-02 [facility]22-07-02 [facility] 1.2.840[facility]1 57207 1011 [id number] Methodi 12:23:19 16:23:30 Encounter Stephani Marinelli 16735.1.[address] 3.430.2.7 Hospit a .3.315703 l .8 2022-07-02 2022-07-02 [facility] 1.2.840.1 63210 1011 [id number] Methodi 12:23:19 16:23:30 Encounter Stephani Marinelli 80716.1.[address] 3.430.2.7 Hospit a .3.995714 l .8 2022-07-02 2022-07-02 [facility], 1.2.840.1 [id number] 46416 34264 Methodi 14:00:00 16:02:09 Encounter Marielena Tirado 65430.1.[address] 3.430.2.7 Hospit a .3.012003 l .8 2022-07-02 2022-07-02 [facility], 1.2.840.1 [id number] 71881 88145 Methodi 14:00:00 16:02:09 Encounter Marielena Tirado 81093.1.[address] 3.430.2.7 Hospit a .3.251716 l .8 2022-07-02 2022-07-02 [facility], 1.2.840.1 [id number] 885484 4356 Methodi 00:00:00 00:00:00 Work Esther 53325.1.[address] 3.430.2.7 Hospit a .3.990862 l .8 2022-07-02 2022-07-02 [facility] 1.2.840[facility]1 [id number] 321534 9702 Methodi 00:00:00 00:00:00 Work Esther 74369.1.[address] 3.430.2.7 Hospit a .3.722776 l .8 2022-06-18 2022-06-19 [facility], 1.2.840.1 [id number] 36590 89606 Methodi 14:01:37 09:27:19 Encounter Marielena Tirado 70968.1.[address] 3.430.2.7 Hospit a .3.165086 l .8 2022-06-18 2022-06-19 [facility] 1.2.840.1 [id number] 06593 10038 Methodi 14:01:37 09:27:19 Encounter Marielena Tirado 93171.1.[address] 3.430.2.7 Hospit a .3.512473 l .8 2022-06-17 2022-06-17 [facility] 1.2.840.1 [id number] 89395500 Methodi 10:07:29 23:59:[address] 3.430.2.7 Hospit a .3.059151 l .8 2022-06-17 2022-06-17 [facility] 1.2.840.1 [id number] 18101481 Methodi 10:07:29 23:59:[address] 3.430.2.7 Hospit a .3.897987 l .8 2022-06-17 2022-06-17 [facility] 1.2.840.1 [id number] 21 76780510 Methodi 10:07:13 23:59:[address] 3.430.2.7 Hospit a .3.712768 l .8 2022-06-17 2022-06-17 [facility] 1.2.840.1 [id number] [id number] Methodi 10:07:13 23:59:[address] 3.430.2.7 Hospit a .3.757522 l .8 2022-06-17 2022-06-17 [place] 11741.2.840.1 1.2.995.150 1359 319357 Methodi 00:00:00 00:00:[address] 3.430.2.7 0.2.7.3.698 Ho spita .3.939113 084.8 l .8 2022-06-17 2022-06-17 Travel 1.2.840.1 1.2.105.418 5748 290489 Methodi 00:00:00 00:00:[address] 3.430.2.7 0.2.7.3.698 Ho spita .3.104221 084.8 l .8 2022-06-14 2022-06-14 Orders Manuel Calvo 1.2.840.1 [id number] 550 6358330 Methodi 00:00:00 00:00:[address] 3.430.2.7 Hospit a .3.873083 l .8 2022-06-14 2022-06-14 Orders Manuel Calvo 1.2.840.1 244253444 333 1216696 Methodi 00:00:00 00:00:[address] 3.430.2.7 Hospit a .3.783356 l .8 2022-05-28 2022-06-07 Office Manuel Calvo 1.2.840.1 721047911 120 [id number] Methodi 15:00:00 00:40:[address] 3.430.2.7 Hospit a .3.740705 l .8 2022-05-28 2022-06-07 Office Manuel Calvo 1.2.840.1 941965996 998 7669191 Methodi 15:00:00 00:40:[address] 3.430.2.7 Hospit a .3.158931 l .8 2022-06-06 2022-06-06 Eloise Guillermo 1.2.840.1 [id number] 948 1088418 Methodi 00:00:00 00:00:00 Only Margaret 05962.1.[address] 3.430.2.7 Hospit a .3.951941 l .8 2022-06-06 2022-06-06 Eloise Guillermo 1.2.840.1 [id number] 337 2133683 Methodi 00:00:00 00:00:00 Only Margaret 12245.1.[address] 3.430.2.7 Hospit a .3.768498 l .8 2022-05-29 2022-05-29 Telephone Juanito, 1.2.840.1 [id number] 2099 333248 Methodi 00:00:00 00:00:[address] 3.430.2.7 Hospit a .3.233962 l .8 2022-05-29 2022-05-29 Telephone Juanito, 1.2.840.1 [id number] 2099 752152 Methodi 00:00:00 00:00:[address] 3.430.2.7 Hospit a .3.461231 l .8 2022-05-28 2022-05-28 [facility] Manuel Calvo 1.2.840.1 [id number] 21 [id number] Methodi 10:14:40 23:59:[address] 3.430.2.7 Hospit a .3.241214 l .8 2022-05-28 2022-05-28 [facility] Manuel Calvo 1.2.840.1 [id number] 21 [id number] Methodi 10:14:40 23:59:[address] 3.430.2.7 Hospit a .3.691985 l .8 2022-05-28 2022-05-28 Infusion Manuel Calvo 1.2.840.1 583931864 70070380 Methodi 11:15:00 14:15:[address] 3.430.2.7 Hospit a .3.063207 l .8 2022-05-28 2022-05-28 Infusion Manuel Calvo 1.2.840.1 [id number] 21 [id number] Methodi 11:15:00 14:15:[address] 3.430.2.7 Hospit a .3.011835 l .8 2022-05-28 2022-05-28 Eloise Chase, 1.2.840.1 97 Methodi 00:00:00 00:00:00 Only Magui Ram 35167.1.[address] 3.430.2.7 Hospit a .3.304414 l .8 2022-05-28 2022-05-28 Travel 1.2.840.1 1.2.557.683 5649 534802 Methodi 00:00:00 00:00:[address] 3.430.2.7 0.2.7.3.698 Ho spita .3.812903 084.8 l .8 2022-05-28 2022-05-28 Orders Salvatore, 1.2.840.1 97 Methodi 00:00:00 00:00:00 Only Magui Ram 84332.1.[address] 3.430.2.7 Hospit a .3.780461 l .8 2022-05-28 2022-05-28 Travel 1.2.840.1 1.2.186.012 5770 524106 Methodi 00:00:00 00:00:[address] 3.430.2.7 0.2.7.3.698 Ho spita .3.853315 084.8 l .8 2022-05-17 2022-05-17 Eloise Guillermo 1.2.840.1 [id number] 296 [id number] Methodi 00:00:00 00:00:00 Only Margaret 95052.1.[address] 3.430.2.7 Hospit a .3.443078 l .8 2022-05-17 2022-05-17 Eloise Guillermo 1.2.840.1 343499550 707 0380506 Methodi 00:00:00 00:00:00 Only Margaret 81706.1.[address] 3.430.2.7 Hospit a .3.447426 l .8 2022-03-06 2022-05-09 Manuel Oseguera 1.2.840.1 710349326 678 5245149 Methodi 15:20:00 11:13:[address] 3.430.2.7 Hospit a .3.993477 l .8 2022-03-06 2022-05-09 Office CalvoManuel 1.2.840.1 049723533 412 2665759 Methodi 15:20:00 11:13:[address] 3.430.2.7 Hospit a .3.546521 l .8 2022-02-05 2022-05-09 Office Manuel Calvo 1.2.840.1 [id number] 140 6662175 Methodi 13:20:00 10:48:[address] 3.430.2.7 Hospit a .3.228434 l .8 2022-02-05 2022-05-09 Office Manuel Calvo 1.2.840.1 351918755 457 0574136 Methodi 13:20:00 10:48:[address] 3.430.2.7 Hospit a .3.659876 l .8 2022-05-02 2022-05-02 Orders [place], 1.2.840.1 [id number] 70863 56663 Methodi 00:00:00 00:00:00 Only Magui Ram 74120.1.[address] 3.430.2.7 Hospit a .3.462955 l .8 2022-05-02 2022-05-02 Orders [place], 1.2.840.1 319092079 73501 54556 Methodi 00:00:00 00:00:00 Only Magui Ram 61853.1.[address] 3.430.2.7 Hospit a .3.245739 l .8 2022-05-02 2022-05-02 Orders [place], 1.2.840.1 295607559 57590 30929 Methodi 00:00:00 00:00:00 Only Magui Ram 15016.1.[address] 3.430.2.7 Hospit a .3.146057 l .8 2022-05-02 2022-05-02 Orders Salvatore, 1.2.840.1 278180580 81552 98179 Methodi 00:00:00 00:00:00 Only Magui Ram 20875.1.[address] 3.430.2.7 Hospit a .3.030383 l .8 2022-05-01 2022-05-01 Infusion Manuel Calvo 1.2.840.1 732008677 71477193 Methodi 11:15:00 14:15:[address] 3.430.2.7 Hospit a .3.044145 l .8 2022-05-01 2022-05-01 Infusion Manuel Calvo 1.2.840.1 420449699 15080999 Methodi 11:15:00 14:15:[address] 3.430.2.7 Hospit a .3.811077 l .8 2022-05-01 2022-05-01 Travel 1.2.840.1 1.2.894.247 6248 532493 Methodi 00:00:00 00:00:[address] 3.430.2.7 0.2.7.3.698 Ho spita .3.049913 084.8 l .8 2022-05-01 2022-05-01 Travel 1.2.840.1 1.2.404.014 3396 785588 Methodi 00:00:00 00:00:[address] 3.430.2.7 0.2.7.3.698 Ho spita .3.114410 084.8 l .8 2022-04-30 2022-04-30 Orders Manuel Calvo 1.2.840.1 349063935 204 1948495 Methodi 00:00:00 00:00:[address] 3.430.2.7 Hospit a .3.206214 l .8 2022-04-30 2022-04-30 Orders Manuel Calvo 1.2.840.1 917073942 888 [id number] Methodi 00:00:00 00:00:[address] 3.430.2.7 Hospit a .3.591497 l .8 2022-04-02 2022-04-02 Infusion Manuel Calvo 1.2.840.1 499275532 82814996 Methodi 11:15:00 14:15:[address] 3.430.2.7 Hospit a .3.303511 l .8 2022-04-02 2022-04-02 Infusion Manuel Calvo 1.2.840.1 699426149 69257252 Methodi 11:15:00 14:15:[address] 3.430.2.7 Hospit a .3.755567 l .8 2022-04-02 2022-04-02 Travel 1.2.840.1 1.2.962.224 1995 489092 Methodi 00:00:00 00:00:[address] 3.430.2.7 0.2.7.3.698 Ho spita .3.602676 084.8 l .8 2022-04-02 2022-04-02 Travel 1.2.840.1 1.2.851.170 9944 404403 Methodi 00:00:00 00:00:[address] 3.430.2.7 0.2.7.3.698 Ho spita .3.631833 084.8 l .8 2022-03-29 2022-03-29 Orders Manuel Calvo 1.2.840.1 765432904 646 3010151 Methodi 00:00:00 00:00:[address] 3.430.2.7 Hospit a .3.203485 l .8 2022-03-29 2022-03-29 Orders Manuel Calvo 1.2.840.1 583479854 628 1014808 Methodi 00:00:00 00:00:[address] 3.430.2.7 Hospit a .3.104025 l .8 2022-03-18 2022-03-18 [facility] 1.2.840.1 5355004639051251 Methodi 13:15:00 14:08:[address] 3.430.2.7 Hospit a .3.017975 l .8 2022-03-18 2022-03-18 [facility] 1.2.840.1 [id number] Methodi 13:15:00 14:08:[address] 3.430.2.7 Hospit a .3.190294 l .8 2022-03-18 2022-03-18 Orders Provider, 1.2.840.1 [id number] 2099 794796 Methodi 00:00:00 00:00:00 Only Unknown 48382.1.[address] 3.430.2.7 Hospit a .3.762772 l .8 2022-03-18 2022-03-18 Orders Provider, 1.2.840.1 [id number] 2099 019734 Methodi 00:00:00 00:00:00 Only Unknown 31494.1.[address] 3.430.2.7 Hospit a .3.849171 l .8 2022-03-15 2022-03-15 [facility] 1.2.840.1 315308895 21001 49600 Methodi 12:00:00 12:27:[address] 3.430.2.7 Hospit a .3.948516 l .8 2022-03-15 2022-03-15 [facility] 1.2.840.1 83913 Methodi 12:00:00 12:27:[address] 3.430.2.7 Hospit a .3.600712 l .8 2022-03-15 2022-03-15 Orders Provider, 1.2.840.1 [id number] 2099 481758 Methodi 00:00:00 00:00:00 Only Unknown 14679.1.[address] 3.430.2.7 Hospit a .3.273353 l .8 2022-03-15 2022-03-15 Orders Provider, 1.2.840.1 [id number] 2100 898195 Methodi 00:00:00 00:00:00 Only Unknown 80024.1.[address] 3.430.2.7 Hospit a .3.462778 l .8 2022-03-14 2022-03-14 [facility], 1.2.840.1 [id number] 21001 19815 Methodi 14:30:00 15:26:35 Encounter Mairelena Tirado 25081.1.[address] 3.430.2.7 Hospit a .3.921563 l .8 2022-03-14 2022-03-14 [facility], 1.2.840.1 [id number] 21001 98251 Methodi 14:30:00 15:26:35 Encounter Marielena Tirado 13523.1.[address] 3.430.2.7 Hospit a .3.546457 l .8 2022-03-14 2022-03-14 [facility] Marielena RamMichael 1.2.840.1 53371 1011 [id number] Methodi 13:21:52 15:06:49 Encounter Makayla Cuevas 18387.1.[address] 3.430.2.7 Hospit a .3.348267 l .8 2022-03-14 [facility]03-14 [facility] 1.2.840.1 24813 1011 [id number] Methodi 13:21:52 15:06:49 Encounter Makayla Cuevas 51528.1.[address] 3.430.2.7 Hospit a .3.965357 l .8 2022-03-14 2022-03-14 [facility] 1.2.840.1 [id number] 16667 Methodi 12:53:46 13:20:[address] 3.430.2.7 Hospit a .3.066144 l .8 2022-03-14 2022-03-14 [facility] 1.2.840.1 [id number] 21001 10375 Methodi 12:53:46 13:20:[address] 3.430.2.7 Hospit a .3.196315 l .8 2022-03-14 2022-03-14 Orders Provider, 1.2.840.1 [id number] 2099 542242 Methodi 00:00:00 00:00:00 Only Unknown 66110.1.[address] 3.430.2.7 Hospit a .3.062653 l .8 2022-03-14 2022-03-14 Orders Provider, 1.2.840.1 [id number] 2099 125667 Methodi 00:00:00 00:00:00 Only Unknown 24128.1.[address] 3.430.2.7 Hospit a .3.101104 l .8 2022-03-13 2022-03-13 [facility] 1.2.840.1 [id number] 48825 Methodi 13:27:48 13:51:[address] 3.430.2.7 Hospit a .3.484104 l .8 2022-03-13 2022-03-13 [facility] 1.2.840.1 [id number] 21001 12037 Methodi 13:27:48 13:51:[address] 3.430.2.7 Hospit a .3.197171 l .8 2022-03-13 2022-03-13 Orders Provider, 1.2.840.1 [id number] 2099 752710 Methodi 00:00:00 00:00:00 Only Unknown 61064.1.[address] 3.430.2.7 Hospit a .3.788707 l .8 2022-03-13 2022-03-13 Orders Provider, 1.2.840.1 [id number] 2099 786833 Methodi 00:00:00 00:00:00 Only Unknown 59812.1.[address] 3.430.2.7 Hospit a .3.156768 l .8 2022-03-12 2022-03-12 [facility] 1.2.840.1 [id number] 21001 75374 Methodi 07:15:00 16:57:48 Encounter Marielena Tirado 65656.1.[address] 3.430.2.7 Hospit a .3.784633 l .8 2022-03-12 2022-03-12 [facility] 1.2.840.1 [id number] 02574 Methodi 07:15:00 16:57:48 Encounter Marielena Tirado 71621.1.[address] 3.430.2.7 Hospit a .3.018928 l .8 2022-03-12 2022-03-12 [facility] 1.2.840.1 [id number] 54742 Methodi 12:52:46 13:43:[address] 3.430.2.7 Hospit a .3.579273 l .8 2022-03-12 2022-03-12 [facility] 1.2.840.1 [id number] Methodi 12:52:46 13:43:[address] 3.430.2.7 Hospit a .3.932713 l .8 2022-03-12 2022-03-12 Orders Provider, 1.2.840.1 [id number] 2100 385884 Methodi 00:00:00 00:00:00 Only Unknown 61160.1.[address] 3.430.2.7 Hospit a .3.538449 l .8 2022-03-12 2022-03-12 Orders Provider, 1.2.840.1 [id number] 2100 167965 Methodi 00:00:00 00:00:00 Only Unknown 83870.1.[address] 3.430.2.7 Hospit a .3.706817 l .8 2022-03-11 2022-03-11 [facility] 1.2.840.1 [id number] Methodi 14:45:00 15:31:[address] 3.430.2.7 Hospit a .3.388005 l .8 2022-03-11 2022-03-11 [facility] 1.2.840.1 [id number] Methodi 14:45:00 15:31:[address] 3.430.2.7 Hospit a .3.371283 l .8 2022-03-11 2022-03-11 Orders Provider, 1.2.840.1 [id number] 2099 415939 Methodi 00:00:00 00:00:00 Only Unknown 08036.1.[address] 3.430.2.7 Hospit a .3.263613 l .8 2022-03-11 2022-03-11 Orders Provider, 1.2.840.1 [id number] 935960 Methodi 00:00:00 00:00:00 Only Unknown 57569.1.[address] 3.430.2.7 Hospit a .3.002852 l .8 2022-03-08 2022-03-08 [facility] 1.2.840.1 [id number] 54822 Methodi 12:00:00 12:08:[address] 3.430.2.7 Hospit a .3.311067 l .8 2022-03-08 2022-03-08 [facility] 1.2.840.1 [id number] 21001 59194 Methodi 12:00:00 12:08:[address] 3.430.2.7 Hospit a .3.325619 l .8 2022-03-08 2022-03-08 [facility] 1.2.840.1 [id number] 79915 Methodi 09:22:16 11:29:00 Encounter Marielena Tirado 57682.1.[address] 3.430.2.7 Hospit a .3.745710 l .8 2022-03-08 2022-03-08 [facility] 1.2.840.1 [id number] 21001 79605 Methodi 09:22:16 11:29:00 Encounter Marielena Tirado 07781.1.[address] 3.430.2.7 Hospit a .3.348833 l .8 2022-03-08 2022-03-08 Orders Provider, 1.2.840.1 [id number] 385281 Methodi 00:00:00 00:00:00 Only Unknown 15977.1.[address] 3.430.2.7 Hospit a .3.577342 l .8 2022-03-08 2022-03-08 Travel 1.2.840.1 1.2.962.455 7380 283389 Methodi 00:00:00 00:00:[address] 3.430.2.7 0.2.7.3.698 Ho spita .3.831251 084.8 l .8 2022-03-08 2022-03-08 Orders Provider, 1.2.840.1 [id number] 2099 728269 Methodi 00:00:00 00:00:00 Only Unknown 98138.1.[address] 3.430.2.7 Hospit a .3.872791 l .8 2022-03-08 2022-03-08 Travel 1.2.840.1 1.2.920.528 7018 813362 Methodi 00:00:00 00:00:[address] 3.430.2.7 0.2.7.3.698 Ho spita .3.995576 084.8 l .8 2022-03-07 2022-03-07 [facility] Marielena M. 1.2.840.1 41278 1 [id number] Methodi 15:04:08 15:46:52 Encounter Stephani Marinelli 99007.1.[address] 3.430.2.7 Hospit a .3.877061 l .8 2022-03-07 2022-03-07 [facility] Marielena M. 1.2.840.1 27673 1 [id number] Methodi 15:04:08 15:46:52 Encounter Stephani Marinelli 17097.1.[address] 3.430.2.7 Hospit a .3.970674 l .8 2022-03-07 2022-03-07 [facility] 1.2.840.1 [id number] 76188 74791 Methodi 14:45:00 15:02:[address] 3.430.2.7 Hospit a .3.444809 l .8 2022-03-07 2022-03-07 Hospital 1.2.840.1 [id number] 21001 28461 Methodi 14:45:00 15:02:[address] 3.430.2.7 Hospit a .3.796465 l .8 2022-03-07 2022-03-07 Orders Provider, 1.2.840.1 [id number] 2099 614131 Methodi 00:00:00 00:00:00 Only Unknown 35373.1.[address] 3.430.2.7 Hospit a .3.148287 l .8 2022-03-07 2022-03-07 Orders Provider, 1.2.840.1 [id number] 2099 787890 Methodi 00:00:00 00:00:00 Only Unknown 25510.1.[address] 3.430.2.7 Hospit a .3.239805 l .8 2022-03-06 2022-03-06 [facility] 1.2.840.1 [id number] Methodi 14:30:00 17:30:[address] 3.430.2.7 Hospit a .3.434888 l .8 2022-03-06 2022-03-06 [facility] 1.2.840.1 [id number] Methodi 14:30:00 17:30:[address] 3.430.2.7 Hospit a .3.121626 l .8 2022-03-06 2022-03-06 [facility] 1.2.840.1 [id number] 21001 84689 Methodi 13:15:00 13:57:[address] 3.430.2.7 Hospit a .3.013450 l .8 2022-03-06 2022-03-06 [facility] 1.2.840.1 [id number] 21001 40487 Methodi 13:15:00 13:57:[address] 3.430.2.7 Hospit a .3.762458 l .8 2022-03-06 2022-03-06 Travel 1.2.840.1 1.2.731.163 7039 920444 Methodi 00:00:00 00:00:[address] 3.430.2.7 0.2.7.3.698 Ho spita .3.560111 084.8 l .8 2022-03-06 2022-03-06 Orders Provider, 1.2.840.1 [id number] 2099 382833 Methodi 00:00:00 00:00:00 Only Unknown 65664.1.[address] 3.430.2.7 Hospit a .3.171733 l .8 2022-03-06 2022-03-06 Travel 1.2.840.1 1.2.300.456 4744 842820 Methodi 00:00:00 00:00:[address] 3.430.2.7 0.2.7.3.698 Ho spita .3.207478 084.8 l .8 2022-03-06 2022-03-06 Orders Provider, 1.2.840.1 [id number] 2099 150790 Methodi 00:00:00 00:00:00 Only Unknown 13424.1.[address] 3.430.2.7 Hospit a .3.890884 l .8 2022-03-05 2022-03-05 [facility] 1.2.840.1 [id number] 85462 Methodi 14:01:32 14:29:[address] 3.430.2.7 Hospit a .3.551933 l .8 2022-03-05 2022-03-05 Hospital 1.2.840.1 [id number] 84351 Methodi 14:01:32 14:29:[address] 3.430.2.7 Hospit a .3.236406 l .8 2022-03-05 2022-03-05 Travel 1.2.840.1 1.2.820.023 5985 120182 Methodi 00:00:00 00:00:[address] 3.430.2.7 0.2.7.3.698 Ho spita .3.859844 084.8 l .8 2022-03-05 2022-03-05 Orders Provider, 1.2.840.1 [id number] 2100 100124 Methodi 00:00:00 00:00:00 Only Unknown 27088.1.[address] 3.430.2.7 Hospit a .3.967092 l .8 2022-03-05 2022-03-05 Travel 1.2.840.1 1.2.235.812 5483 569199 Methodi 00:00:00 00:00:[address] 3.430.2.7 0.2.7.3.698 Ho spita .3.843436 084.8 l .8 2022-03-05 2022-03-05 Orders Provider, 1.2.840.1 [id number] 2100 104076 Methodi 00:00:00 00:00:00 Only Unknown 28520.1.[address] 3.430.2.7 Hospit a .3.593705 l .8 2022-03-04 2022-03-04 Hospital 1.2.840.1 [id number] 21001 87013 Methodi 12:47:19 13:24:[address] 3.430.2.7 Hospit a .3.439784 l .8 2022-03-04 2022-03-04 Hospital 1.2.840.1 779136007 21001 68279 Methodi 12:47:19 13:24:[address] 3.430.2.7 Hospit a .3.131104 l .8 2022-03-04 2022-03-04 Orders Provider, 1.2.840.1 161241407 2100 871622 Methodi 00:00:00 00:00:00 Only Unknown 03717.1.[address] 3.430.2.7 Hospit a .3.870384 l .8 2022-03-04 2022-03-04 Orders Provider, 1.2.840.1 [id number] 2100 302572 Methodi 00:00:00 00:00:00 Only Unknown 93443.1.[address] 3.430.2.7 Hospit a .3.837334 l .8 2022-03-01 2022-03-01 [facility] 1.2.840.1 097262702 21001 80679 Methodi 14:18:10 14:46:[address] 3.430.2.7 Hospit a .3.672647 l .8 2022-03-01 2022-03-01 [facility] 1.2.840.1 [id number] 21001 42022 Methodi 14:18:10 14:46:[address] 3.430.2.7 Hospit a .3.414681 l .8 2022-03-01 2022-03-01 Orders Manuel Calvo 1.2.840.1 [id number] 753 3740256 Methodi 00:00:00 00:00:[address] 3.430.2.7 Hospit a .3.783115 l .8 2022-03-01 2022-03-01 Orders Provider, 1.2.840.1 [id number] 2100 502104 Methodi 00:00:00 00:00:00 Only Unknown 68668.1.[address] 3.430.2.7 Hospit a .3.041851 l .8 2022-03-01 2022-03-01 Orders Manuel Calvo 1.2.840.1 [id number] 276 6259378 Methodi 00:00:00 00:00:[address] 3.430.2.7 Hospit a .3.034525 l .8 2022-03-01 2022-03-01 Orders Provider, 1.2.840.1 [id number] 2099 216814 Methodi 00:00:00 00:00:00 Only Unknown 17077.1.[address] 3.430.2.7 Hospit a .3.013541 l .8 2022-02-28 [facility] 1.2.840.1 88924 1011 [id number] Methodi 15:00:00 16:06:57 Encounter Makayla Cuevas 27403.1.[address] 3.430.2.7 Hospit a .3.703677 l .8 2022-02-28 [facility]22-02-28 [facility] 1.2.840.1 56770 1011 [id number] Methodi 15:00:00 16:06:57 Encounter Makayla Cuevas 56918.1.[address] 3.430.2.7 Hospit a .3.031528 l .8 2022-02-28 2022-02-28 [facility] 1.2.840.1 [id number] 69977 04370 Methodi 14:30:00 15:13:[address] 3.430.2.7 Hospit a .3.576371 l .8 2022-02-28 2022-02-28 [facility] 1.2.840.1 849939055 21001 12713 Methodi 14:30:00 15:13:[address] 3.430.2.7 Hospit a .3.249055 l .8 2022-02-28 2022-02-28 Orders Provider, 1.2.840.1 040786093 2100 757701 Methodi 00:00:00 00:00:00 Only Unknown 36060.1.[address] 3.430.2.7 Hospit a .3.273592 l .8 2022-02-28 2022-02-28 Orders Provider, 1.2.840.1 271315755 2100 937381 Methodi 00:00:00 00:00:00 Only Unknown 25478.1.[address] 3.430.2.7 Hospit a .3.931619 l .8 2022-02-27 2022-02-27 [facility] 1.2.840.1 226383213 21001 04402 Methodi 15:00:00 15:28:[address] 3.430.2.7 Hospit a .3.533634 l .8 2022-02-27 2022-02-27 [facility] 1.2.840.1 57261733651 Methodi 15:00:00 15:28:[address] 3.430.2.7 Hospit a .3.423665 l .8 2022-02-27 2022-02-27 Orders Provider, 1.2.840.1 [id number] 559164 Methodi 00:00:00 00:00:00 Only Unknown 25257.1.[address] 3.430.2.7 Hospit a .3.604915 l .8 2022-02-27 2022-02-27 Orders Provider, 1.2.840.1 158899757110719 870562 Methodi 00:00:00 00:00:00 Only Unknown 67828.1.[address] 3.430.2.7 Hospit a .3.232418 l .8 2022-02-26 2022-02-26 [facility] 1.2.840.1 910484091 21001 66182 Methodi 15:00:00 15:36:[address] 3.430.2.7 Hospit a .3.971605 l .8 2022-02-26 2022-02-26 [facility] 1.2.840.1 70501939851 Methodi 15:00:00 15:36:[address] 3.430.2.7 Hospit a .3.884116 l .8 2022-02-26 2022-02-26 Orders Provider, 1.2.840.1 779506122110719 540878 Methodi 00:00:00 00:00:00 Only Unknown 51268.1.[address] 3.430.2.7 Hospit a .3.642755 l .8 2022-02-26 2022-02-26 Orders Provider, 1.2.840.1 [id number] 314972 Methodi 00:00:00 00:00:00 Only Unknown 44618.1.[address] 3.430.2.7 Hospit a .3.022819 l .8 2022-02-25 2022-02-25 [facility] 1.2.840.1 59759 Methodi 14:17:54 14:36:[address] 3.430.2.7 Hospit a .3.999081 l .8 2022-02-25 2022-02-25 [facility] 1.2.840.1 89791 Methodi 14:17:54 14:36:[address] 3.430.2.7 Hospit a .3.287781 l .8 2022-02-25 2022-02-25 Travel 1.2.840.1 1.2.480.985 5165 731065 Methodi 00:00:00 00:00:[address] 3.430.2.7 0.2.7.3.698 Ho spita .3.272592 084.8 l .8 2022-02-25 2022-02-25 Orders Provider, 1.2.840.1 [id number] 187230 Methodi 00:00:00 00:00:00 Only Unknown 43076.1.[address] 3.430.2.7 Hospit a .3.492325 l .8 2022-02-25 2022-02-25 Travel 1.2.840.1 1.2.693.213 2979 006286 Methodi 00:00:00 00:00:[address] 3.430.2.7 0.2.7.3.698 Ho spita .3.251580 084.8 l .8 2022-02-25 2022-02-25 Orders Provider, 1.2.840.1 [id number] 026161 Methodi 00:00:00 00:00:00 Only Unknown 33473.1.[address] 3.430.2.7 Hospit a .3.297152 l .8 2022-02-22 2022-02-22 [facility] 1.2.840.1 [id number] 19425 50594 Methodi 14:29:02 15:26:[address] 3.430.2.7 Hospit a .3.033780 l .8 2022-02-22 2022-02-22 [facility] 1.2.840.1 222234101 52439 72800 Methodi 14:29:02 15:26:[address] 3.430.2.7 Hospit a .3.063499 l .8 2022-02-21 2022-02-22 [facility] 1.2.840.1 824305990 39677 45827 Methodi 16:00:00 07:53:40 Encounter Marielena Tirado 15089.1.[address] 3.430.2.7 Hospit a .3.025424 l .8 2022-02-21 2022-02-22 [facility] 1.2.840.1 063006012 36704 34496 Methodi 16:00:00 07:53:40 Encounter Marielena Tirado 18714.1.[address] 3.430.2.7 Hospit a .3.350515 l .8 2022-02-21 2022-02-22 [facility], Marielena YoMichael 1.2.840.1 22646 1011 [id number] Methodi 15:30:00 07:50:44 Encounter Stephani Marinelli 22085.1.[address] 3.430.2.7 Hospit a .3.317418 l .8 2022-02-21 2022-02-22 [facility] 1.2.840.1 06440 1011 [id number] Methodi 15:30:00 07:50:44 Encounter Stephani Marinelli 12659.1.[address] 3.430.2.7 Hospit a .3.809185 l .8 2022-02-22 2022-02-22 [facility], 1.2.840.1 [id number] 2100 379235 Methodi 00:00:00 00:00:00 Only Unknown 03954.1.[address] 3.430.2.7 Hospit a .3.218211 l .8 2022-02-22 2022-02-22 Orders Provider, 1.2.840.1 [id number] 2099 818172 Methodi 00:00:00 00:00:00 Only Unknown 79418.1.[address] 3.430.2.7 Hospit a .3.986273 l .8 2022-02-21 2022-02-21 Hospital 1.2.840.1 084580862 21001 34466 Methodi 15:00:00 15:31:[address] 3.430.2.7 Hospit a .3.954925 l .8 2022-02-21 2022-02-21 [facility] 1.2.840.1 514421270 21001 62074 Methodi 15:00:00 15:31:[address] 3.430.2.7 Hospit a .3.620753 l .8 2022-02-21 2022-02-21 Orders Provider, 1.2.840.1 [id number] 506284 Methodi 00:00:00 00:00:00 Only Unknown 90273.1.[address] 3.430.2.7 Hospit a .3.069526 l .8 2022-02-21 2022-02-21 Travel 1.2.840.1 1.2.752.491 4311 030863 Methodi 00:00:00 00:00:[address] 3.430.2.7 0.2.7.3.698 Ho spita .3.075299 084.8 l .8 2022-02-21 2022-02-21 Orders Provider, 1.2.840.1 [id number] 2099 503886 Methodi 00:00:00 00:00:00 Only Unknown 46544.1.[address] 3.430.2.7 Hospit a .3.872720 l .8 2022-02-21 2022-02-21 Travel 1.2.840.1 1.2.886.386 4482 798401 Methodi 00:00:00 00:00:[address] 3.430.2.7 0.2.7.3.698 Ho spita .3.816370 084.8 l .8 2022-02-20 2022-02-20 [facility] 1.2.840.1 850904936 21001 48839 Methodi 15:00:00 15:27:[address] 3.430.2.7 Hospit a .3.994103 l .8 2022-02-20 2022-02-20 [facility] 1.2.840.1 [id number] 21001 50316 Methodi 15:00:00 15:27:[address] 3.430.2.7 Hospit a .3.530550 l .8 2022-02-20 2022-02-20 Orders Provider, 1.2.840.1 [id number] 2099 846013 Methodi 00:00:00 00:00:00 Only Unknown 35325.1.[address] 3.430.2.7 Hospit a .3.006139 l .8 2022-02-20 2022-02-20 Orders Provider, 1.2.840.1 [id number] 2099 531769 Methodi 00:00:00 00:00:00 Only Unknown 91098.1.[address] 3.430.2.7 Hospit a .3.209760 l .8 2022-02-19 2022-02-19 [facility] 1.2.840.1 750225030 21001 03180 Methodi 16:11:23 17:25:[address] 3.430.2.7 Hospit a .3.737729 l .8 2022-02-19 2022-02-19 [facility] 1.2.840.1 [id number] 21001 77251 Methodi 16:11:23 17:25:[address] 3.430.2.7 Hospit a .3.071148 l .8 2022-02-19 2022-02-19 Orders Provider, 1.2.840.1 [id number] 2099 527201 Methodi 00:00:00 00:00:00 Only Unknown 95594.1.[address] 3.430.2.7 Hospit a .3.414293 l .8 2022-02-19 2022-02-19 Orders Provider, 1.2.840.1 [id number] 2099 699027 Methodi 00:00:00 00:00:00 Only Unknown 41533.1.[address] 3.430.2.7 Hospit a .3.728663 l .8 2022-02-18 2022-02-18 [facility] 1.2.840.1 [id number] 21001 35882 Methodi 14:55:34 15:27:[address] 3.430.2.7 Hospit a .3.521571 l .8 2022-02-18 2022-02-18 [facility] 1.2.840.1 758380986 21001 39041 Methodi 14:55:34 15:27:[address] 3.430.2.7 Hospit a .3.086028 l .8 2022-02-18 2022-02-18 Orders Provider, 1.2.840.1 728982021 2099 343943 Methodi 00:00:00 00:00:00 Only Unknown 55295.1.[address] 3.430.2.7 Hospit a .3.125864 l .8 2022-02-18 2022-02-18 Orders Provider, 1.2.840.1 [id number] 2099 610717 Methodi 00:00:00 00:00:00 Only Unknown 67238.1.[address] 3.430.2.7 Hospit a .3.283083 l .8 2022-02-15 2022-02-15 [facility] 1.2.840.1 214095759 21001 87359 Methodi 14:44:03 15:09:[address] 3.430.2.7 Hospit a .3.538435 l .8 2022-02-15 2022-02-15 Hospital 1.2.840.1 068621553 80670 87978 Methodi 14:44:03 15:09:[address] 3.430.2.7 Hospit a .3.184791 l .8 2022-02-14 2022-02-15 [facility], Marielena Ram. 1.2.840.1 71355 1011 [id number] Methodi 15:30:00 08:02:02 Encounter Stephani Marinelli 49101.1.[address] 3.430.2.7 Hospit a .3.454489 l .8 2022-02-14 2022-02-15 [facility] 1.2.840.1 68491 1011 [id number] Methodi 15:30:00 08:02:02 Encounter Stephani Marinelli 84668.1.[address] 3.430.2.7 Hospit a .3.129076 l .8 2022-02-15 2022-02-15 Orders Provider, 1.2.840.1 [id number] 2100 766645 Methodi 00:00:00 00:00:00 Only Unknown 30170.1.[address] 3.430.2.7 Hospit a .3.718648 l .8 2022-02-15 2022-02-15 Orders Provider, 1.2.840.1 104019242 2100 223875 Methodi 00:00:00 00:00:00 Only Unknown 26075.1.[address] 3.430.2.7 Hospit a .3.197176 l .8 2022-02-14 2022-02-14 [facility], 1.2.840.1 [id number] 03225 74984 Methodi 16:00:00 23:59:00 Encounter Marielena Tirado 72086.1.[address] 3.430.2.7 Hospit a .3.760213 l .8 2022-02-14 2022-02-14 [facility], 1.2.840.1 [id number] 72540 35948 Methodi 16:00:00 23:59:00 Encounter Marielena Tirado 59252.1.[address] 3.430.2.7 Hospit a .3.136580 l .8 2022-02-14 2022-02-14 [facility] 1.2.840.1 [id number] 26570 35924 Methodi 14:44:03 15:31:[address] 3.430.2.7 Hospit a .3.000800 l .8 2022-02-14 2022-02-14 [facility] 1.2.840.1 667581443 21001 83471 Methodi 14:44:03 15:31:[address] 3.430.2.7 Hospit a .3.022525 l .8 2022-02-14 2022-02-14 Orders Provider, 1.2.840.1 [id number] 2099 785889 Methodi 00:00:00 00:00:00 Only Unknown 95841.1.[address] 3.430.2.7 Hospit a .3.059041 l .8 2022-02-14 2022-02-14 Orders Provider, 1.2.840.1 [id number] 2099 242007 Methodi 00:00:00 00:00:00 Only Unknown 94330.1.[address] 3.430.2.7 Hospit a .3.414040 l .8 2022-02-13 2022-02-13 [facility] 1.2.840.1 [id number] 17417 82890 Methodi 13:13:00 13:38:[address] 3.430.2.7 Hospit a .3.456919 l .8 2022-02-13 2022-02-13 [facility] 1.2.840.1 [id number] 21001 20718 Methodi 13:13:00 13:38:[address] 3.430.2.7 Hospit a .3.558128 l .8 2022-02-13 2022-02-13 Orders Provider, 1.2.840.1 [id number] 2099 125408 Methodi 00:00:00 00:00:00 Only Unknown 60297.1.[address] 3.430.2.7 Hospit a .3.786904 l .8 2022-02-13 2022-02-13 Orders Provider, 1.2.840.1 [id number] 2099 366335 Methodi 00:00:00 00:00:00 Only Unknown 60004.1.[address] 3.430.2.7 Hospit a .3.623713 l .8 2022-02-12 2022-02-12 [facility] 1.2.840.1 578991503 21001 11384 Methodi 14:38:42 15:16:[address] 3.430.2.7 Hospit a .3.904738 l .8 2022-02-12 2022-02-12 [facility] 1.2.840.1 51 Methodi 14:38:42 15:16:[address] 3.430.2.7 Hospit a .3.590734 l .8 2022-02-11 2022-02-12 [facility] 1.2.840.1 [id number] 21001 68298 Methodi 08:45:00 08:24:56 Encounter Marielena YoMichael 39144.1.[address] 3.430.2.7 Hospit a .3.914842 l .8 2022-02-11 2022-02-12 [facility] 1.2.840.1 [id number] 21001 92772 Methodi 08:45:00 08:24:56 Encounter Marielena YoMichael 00965.1.[address] 3.430.2.7 Hospit a .3.516654 l .8 2022-02-12 2022-02-12 Orders Provider, 1.2.840.1 [id number] 2099 701782 Methodi 00:00:00 00:00:00 Only Unknown 38440.1.[address] 3.430.2.7 Hospit a .3.727709 l .8 2022-02-12 2022-02-12 Orders Provider, 1.2.840.1 [id number] 2099 232851 Methodi 00:00:00 00:00:00 Only Unknown [address]223.1.[address] 3.430.2.7 Hospit a .3.612319 l .8 2022-02-11 2022-02-11 [facility] 1.2.840.1 [id number] 20805 26803 Methodi 13:09:17 13:34:[address] 3.430.2.7 Hospit a .3.681943 l .8 2022-02-11 2022-02-11 [facility] 1.2.840.1 323032441 21001 43201 Methodi 13:09:17 13:34:[address] 3.430.2.7 Hospit a .3.180264 l .8 2022-02-11 2022-02-11 Orders Provider, 1.2.840.1 [id number] 2099 799338 Methodi 00:00:00 00:00:00 Only Unknown 47565.1.[address] 3.430.2.7 Hospit a .3.503155 l .8 2022-02-11 2022-02-11 Orders Provider, 1.2.840.1 [id number] 2099 986834 Methodi 00:00:00 00:00:00 Only Unknown 06335.1.[address] 3.430.2.7 Hospit a .3.883595 l .8 2022-02-08 2022-02-08 [facility] 1.2.840.1 [id number] 89624 Methodi 14:50:18 15:19:[address] 3.430.2.7 Hospit a .3.247493 l .8 2022-02-08 2022-02-08 [facility] 1.2.840.1 [id number] 88763 Methodi 14:50:18 15:19:[address] 3.430.2.7 Hospit a .3.907708 l .8 2022-02-08 2022-02-08 Orders Provider, 1.2.840.1 [id number] 2100 224331 Methodi 00:00:00 00:00:00 Only Unknown 43933.1.[address] 3.430.2.7 Hospit a .3.916331 l .8 2022-02-08 2022-02-08 Orders Provider, 1.2.840.1 866992493 2100 008006 Methodi 00:00:00 00:00:00 Only Unknown 19774.1.[address] 3.430.2.7 Hospit a .3.184385 l .8 2022-02-07 [facility]22-02-07 [facility] 1.2.840.1 98980 1011 [id number] Methodi 15:05:09 15:42:44 Encounter Stephani Marinelli 04721.1.[address] 3.430.2.7 Hospit a .3.903108 l .8 2022-02-07 [facility]22-02-07 [facility] 1.2.840.1 96960 1011 [id number] Methodi 15:05:09 15:42:44 Encounter Stephani Marinelli 60298.1.[address] 3.430.2.7 Hospit a .3.415800 l .8 2022-02-07 2022-02-07 [facility] 1.2.840.1 [id number] 95040 10941 Methodi 15:02:53 15:04:[address] 3.430.2.7 Hospit a .3.951756 l .8 2022-02-07 2022-02-07 Hospital 1.2.840.1 [id number] 63632 14837 Methodi 15:02:53 15:04:[address] 3.430.2.7 Hospit a .3.031686 l .8 2022-02-07 2022-02-07 Travel 1.2.840.1 1.2.948.728 8616 061627 Methodi 00:00:00 00:00:[address] 3.430.2.7 0.2.7.3.698 Ho spita .3.655441 084.8 l .8 2022-02-07 2022-02-07 Orders Provider, 1.2.840.1 [id number] 2099 031160 Methodi 00:00:00 00:00:00 Only Unknown 79035.1.[address] 3.430.2.7 Hospit a .3.881620 l .8 2022-02-07 2022-02-07 Travel 1.2.840.1 1.2.778.261 3746 527091 Methodi 00:00:00 00:00:[address] 3.430.2.7 0.2.7.3.698 Ho spita .3.812857 084.8 l .8 2022-02-07 2022-02-07 Orders Provider, 1.2.840.1 [id number] 2099 161897 Methodi 00:00:00 00:00:00 Only Unknown 80513.1.[address] 3.430.2.7 Hospit a .3.160254 l .8 2022-02-06 2022-02-06 Hospital 1.2.840.1 [id number] 91237 Methodi 16:17:46 16:37:[address] 3.430.2.7 Hospit a .3.341800 l .8 2022-02-06 2022-02-06 [facility] 1.2.840.1 [id number] 21001 39674 Methodi 16:17:46 16:37:[address] 3.430.2.7 Hospit a .3.028289 l .8 2022-02-05 2022-02-06 [facility] Marielena Ramsay 1.2.840.1 56467 1011 [id number] Methodi 16:47:22 09:27:38 Encounter Makayla Cuevas 27793.1.[address] 3.430.2.7 Hospit a .3.139965 l .8 2022-02-05 2022-02-06 [facility] Marielena Rasmay 1.2.840.1 04789 1011 [id number] Methodi 16:47:22 09:27:38 Encounter Makayla Cuevas 75284.1.[address] 3.430.2.7 Hospit a .3.367288 l .8 2022-02-06 2022-02-06 Orders Provider, 1.2.840.1 [id number] 2099 949147 Methodi 00:00:00 00:00:00 Only Unknown 39719.1.[address] 3.430.2.7 Hospit a .3.570089 l .8 2022-02-06 2022-02-06 Orders oru, 1.2.840.1 [id number] 144117 6277 Methodi 00:00:00 00:00:00 Only [place] 93386.1.1 044 s t 3.430.2.7 Hospit a .3.022472 l .8 2022-02-06 2022-02-06 Orders Provider, 1.2.840.1 [id number] 2099 912481 Methodi 00:00:00 00:00:00 Only Unknown 79664.1.[address] 3.430.2.7 Hospit a .3.280710 l .8 2022-02-06 2022-02-06 Orders [facility], 1.2.840.1 [id number] 689705 5900 Methodi 00:00:00 00:00:00 Only [place] 47672.1.1 044 s t 3.430.2.7 Hospit a .3.764198 l .8 2022-02-05 2022-02-05 [facility], 1.2.840.1 [id number] 78692 01954 Methodi 15:45:00 16:43:41 Encounter Marielena Tirado 41445.1.[address] 3.430.2.7 Hospit a .3.892456 l .8 2022-02-05 2022-02-05 [facility], 1.2.840.1 [id number] 66708 27902 Methodi 15:45:00 16:43:41 Encounter Marielena Tirado 60885.1.[address] 3.430.2.7 Hospit a .3.342035 l .8 2022-02-05 2022-02-05 Infusion Manuel Calvo 1.2.840.1 [id number] 21 [id number] Methodi 11:45:00 14:45:[address] 3.430.2.7 Hospit a .3.628581 l .8 2022-02-05 2022-02-05 Infusion Manuel Calvo 1.2.840.1 [id number] 21 [id number] Methodi 11:45:00 14:45:[address] 3.430.2.7 Hospit a .3.177505 l .8 2022-02-05 2022-02-05 Orders Provider, 1.2.840.1 [id number] 2099330 Methodi 00:00:00 00:00:00 Only Unknown 29435.1.[address] 3.430.2.7 Hospit a .3.040617 l .8 2022-02-05 2022-02-05 Travel 1.2.840.1 1.2.747.417 3262 121824 Methodi 00:00:00 00:00:[address] 3.430.2.7 0.2.7.3.698 Ho spita .3.283796 084.8 l .8 2022-02-05 2022-02-05 Orders Provider, 1.2.840.1 [id number] 2099330 Methodi 00:00:00 00:00:00 Only Unknown 04882.1.[address] 3.430.2.7 Hospit a .3.092006 l .8 2022-02-05 2022-02-05 Travel 1.2.840.1 1.2.402.478 6831 128696 Methodi 00:00:00 00:00:[address] 3.430.2.7 0.2.7.3.698 Ho spita .3.115038 084.8 l .8 2022-02-04 2022-02-04 Orders Manuel Calvo 1.2.840.1 [id number] 374 [id number] Methodi 00:00:00 00:00:[address] 3.430.2.7 Hospit a .3.793076 l .8 2022-02-04 2022-02-04 Orders Manuel Calvo 1.2.840.1 [id number] 448 [id number] Methodi 00:00:00 00:00:[address] 3.430.2.7 Hospit a .3.891312 l .8 2022-02-01 2022-02-01 Travel 1.2.840.1 1.2.553.997 9528 134056 Methodi 00:00:00 00:00:[address] 3.430.2.7 0.2.7.3.698 Ho spita .3.580757 084.8 l .8 2022-02-01 2022-02-01 Travel 1.2.840.1 1.2.655.579 5732 134056 Methodi 00:00:00 00:00:[address] 3.430.2.7 0.2.7.3.698 Ho spita .3.391764 084.8 l .8 2022-01-25 2022-01-25 Telephone Manuel Calvo 1.2.840.1 [id number] 2 [id number] Methodi 00:00:00 00:00:[address] 3.430.2.7 Hospit a .3.984119 l .8 2022-01-25 2022-01-25 Telephone Manuel Calvo 1.2.840.1 [id number] 2 [id number] Methodi 00:00:00 00:00:[address] 3.430.2.7 Hospit a .3.990973 l .8 2022-01-21 2022-01-21 [facility], 1.2.840.1 [id number] 48699 94931 Methodi 00:00:00 00:00:00 Work Blanca 63362.1.[address] 3.430.2.7 Hospit a .3.511676 l .8 2022-01-21 2022-01-21 [facility], 1.2.840.1 [id number] 35653 86774 Methodi 00:00:00 00:00:00 Work [place]anca 47480.1.[address] 3.430.2.7 Hospit a .3.678493 l .8 2022-01-16 2022-01-17 [facility], Marielena Celestino 1.2.840.1 59704 1189 [id number] Methodi 14:32:32 08:38:05 Encounter Margaret Cowan 41055.1.[address] 3.430.2.7 Hospit a .3.004955 l .8 2022-01-17 2022-01-17 [facility], 1.2.840.1 [id number] 74196 Methodi 00:00:00 00:00:00 Work [place]anca 15790.1.[address] 3.430.2.7 Hospit a .3.935915 l .8 2022-01-17 2022-01-17 [facility], 1.2.840.1 [id number] 39320 Methodi 00:00:00 00:00:00 Work [place]anca 35978.1.[address] 3.430.2.7 Hospit a .3.705054 l .8 2022-01-16 2022-01-17 [facility], 1.2.840.1 [id number] 86120 43602 [place] 00:00:00 00:00:00 Encounter MARIELENA 61319.1.1 [address] .3.350010 .8 2022-01-16 2022-01-16 [facility], 1.2.840.1 [id number] 54662 65689 Methodi 16:15:00 16:49:06 Encounter Marielena Tirado 78111.1.[address] 3.430.2.7 Hospit a .3.069700 l .8 2022-01-16 2022-01-16 [facility], 1.2.840.1 [id number] 79219 42231 Methodi 16:15:00 16:49:06 Encounter Marielena Tirado 15988.1.[address] 3.430.2.7 Hospit a .3.144683 l .8 2022-01-08 2022-01-16 Office Lubna Manuel 1.2.840.1 [id number] 446 [id number] Methodi 10:20:00 00:36:[address] 3.430.2.7 Hospit a .3.455221 l .8 2022-01-08 2022-01-16 Office Lubna Manuel 1.2.840.1 [id number] 841 [id number] Methodi 10:20:00 00:36:[address] 3.430.2.7 Hospit a .3.802396 l .8 2022-01-16 2022-01-16 Travel 1.2.840.1 1.2.125.640 7603 937370 Methodi 00:00:00 00:00:[address] 3.430.2.7 0.2.7.3.698 Ho spita .3.523244 084.8 l .8 2022-01-16 2022-01-16 Travel 1.2.840.1 1.2.996.316 5670 440691 Methodi 00:00:00 00:00:[address] 3.430.2.7 0.2.7.3.698 Ho spita .3.131186 084.8 l .8 2022-01-15 2022-01-15 [facility], 1.2.840.1 [id number] 2099812 Methodi 00:00:00 00:00:00 Marielena Tirado 03151.1.[address] 3.430.2.7 Hospit a .3.645267 l .8 2022-01-15 2022-01-15 [facility], 1.2.840.1 [id number] 2099812 Methodi 00:00:00 00:00:00 Marielena Tirado 64054.1.[address] 3.430.2.7 Hospit a .3.970000 l .8 2022-01-10 2022-01-11 [facility], 1.2.840.1 [id number] 50012 26615 Methodi 07:00:00 10:29:48 Encounter Marielena Tirado 86973.1.[address] 3.430.2.7 Hospit a .3.363422 l .8 2022-01-10 2022-01-11 [facility], 1.2.840.1 [id number] 39237 56807 Methodi 07:00:00 10:29:48 Encounter Marielena iTrado 38153.1.[address] 3.430.2.7 Hospit a .3.559603 l .8 2022-01-08 2022-01-08 [facility] Manuel Calvo 1.2.840.1 [id number] 21 [id number] Methodi 07:18:36 23:59:[address] 3.430.2.7 Hospit a .3.582047 l .8 2022-01-08 2022-01-08 [facility] Manuel Calvo 1.2.840.1 [id number] 21 [id number] Methodi 07:18:36 23:59:[address] 3.430.2.7 Hospit a .3.222323 l .8 2022-01-08 2022-01-08 Infusion Manuel Calvo 1.2.840.1 [id number] 21 [id number] Methodi 09:15:00 12:15:[address] 3.430.2.7 Hospit a .3.604333 l .8 2022-01-08 2022-01-08 Infusion Manuel Calvo 1.2.840.1 [id number] 21 [id number] Methodi 09:15:00 12:15:[address] 3.430.2.7 Hospit a .3.496466 l .8 2022-01-08 2022-01-08 [facility] Manuel Calvo 1.2.840.1 [id number] 335 [id number] Methodi 00:00:00 00:00:[address] 3.430.2.7 Hospit a .3.548855 l .8 2022-01-08 2022-01-08 Travel 1.2.840.1 1.2.295.445 5025 062309 Methodi 00:00:00 00:00:[address] 3.430.2.7 0.2.7.3.698 Ho spita .3.092471 084.8 l .8 2022-01-08 2022-01-08 Manuel Ochoa 1.2.840.1 [id number] 052 6473940 Methodi 00:00:00 00:00:[address] 3.430.2.7 Hospit a .3.278610 l .8 2022-01-08 2022-01-08 Travel 1.2.840.1 1.2.037.189 7417 751749 Methodi 00:00:00 00:00:[address] 3.430.2.7 0.2.7.3.698 Ho spita .3.015664 084.8 l .8 2022-01-04 2022-01-04 Travel 1.2.840.1 1.2.702.331 0277 867867 Methodi 00:00:00 00:00:[address] 3.430.2.7 0.2.7.3.698 Ho spita .3.469292 084.8 l .8 2022-01-04 2022-01-04 Travel 1.2.840.1 1.2.280.873 1498 322807 Methodi 00:00:00 00:00:[address] 3.430.2.7 0.2.7.3.698 Ho spita .3.623412 084.8 l .8 2021-12-21 2021-12-21 Eloise Guillermo, 1.2.840.1 [id number] 240 4086702 Methodi 00:00:00 00:00:00 Only Margaret 97791.1.[address] 3.430.2.7 Hospit a .3.566367 l .8 2021-12-21 2021-12-21 [facility], 1.2.840.1 [id number] 023 8984288 Methodi 00:00:00 00:00:00 Only Margaret 54521.1.[address] 3.430.2.7 Hospit a .3.468000 l .8 2021-12-11 2021-12-20 Office Manuel Calvo 1.2.840.1 [id number] 016 4053372 Methodi 10:20:00 00:30:[address] 3.430.2.7 Hospit a .3.414304 l .8 2021-12-11 2021-12-20 Office Manuel Calvo 1.2.840.1 [id number] 385 1820047 Methodi 10:20:00 00:30:[address] 3.430.2.7 Hospit a .3.166810 l .8 2021-12-11 2021-12-11 Infusion Manuel Calvo 1.2.840.1 [id number] 21 [id number] Methodi 09:15:00 12:15:[address] 3.430.2.7 Hospit a .3.375790 l .8 2021-12-11 2021-12-11 Infusion Manuel Calvo 1.2.840.1 [id number] 44183294 Methodi 09:15:00 12:15:[address] 3.430.2.7 Hospit a .3.584281 l .8 2021-12-11 2021-12-11 Travel 1.2.840.1 1.2.672.221 2644 007591 Methodi 00:00:00 00:00:[address] 3.430.2.7 0.2.7.3.698 Ho spita .3.716656 084.8 l .8 2021-12-11 2021-12-11 Travel 1.2.840.1 1.2.571.219 2039 258451 Methodi 00:00:00 00:00:[address] 3.430.2.7 0.2.7.3.698 Ho spita .3.681628 084.8 l .8 2021-12-07 2021-12-07 Orders Manuel Calvo 1.2.840.1 [id number] 949 4016865 Methodi 00:00:00 00:00:[address] 3.430.2.7 Hospit a .3.753404 l .8 2021-12-07 2021-12-07 Travel 1.2.840.1 1.2.574.308 5360 242755 Methodi 00:00:00 00:00:[address] 3.430.2.7 0.2.7.3.698 Ho spita .3.939672 084.8 l .8 2021-11-13 2021-11-22 Office Manuel Calvo 1.2.840.1 [id number] 966 3514502 Methodi 12:00:00 00:28:[address] 3.430.2.7 Hospit a .3.107471 l .8 2021-11-13 2021-11-13 Hospital Manuel Calvo 1.2.840.1 [id number] 21 [id number] Methodi 08:00:00 23:59:[address] 3.430.2.7 Hospit a .3.329568 l .8 2021-11-13 2021-11-13 Infusion Manuel Calvo 1.2.840.1 [id number] 21 [id number] Methodi 11:15:00 14:15:[address] 3.430.2.7 Hospit a .3.363922 l .8 2021-11-13 2021-11-13 [facility] Manuel Calvo 1.2.840.1 [id number] 011 1105493 Methodi 00:00:00 00:00:[address] 3.430.2.7 Hospit a .3.213760 l .8 2021-11-13 2021-11-13 Travel 1.2.840.1 1.2.534.194 3181 196626 Methodi 00:00:00 00:00:[address] 3.430.2.7 0.2.7.3.698 Ho spita .3.836771 084.8 l .8 2021-11-08 2021-11-08 Travel 1.2.840.1 1.2.782.979 6793 408784 Methodi 00:00:00 00:00:[address] 3.430.2.7 0.2.7.3.698 Ho spita .3.160674 084.8 l .8 2021-11-07 2021-11-07 Travel 1.2.840.1 1.2.416.191 2165 500297 Methodi 00:00:00 00:00:[address] 3.430.2.7 0.2.7.3.698 Ho spita .3.325463 084.8 l .8 2021-11-05 2021-11-05 [facility], 1.2.840.1 [id number] 684 9490284 Methodi 00:00:00 00:00:00 Only Margaret 64450.1.[address] 3.430.2.7 Hospit a .3.571033 l .8 2021-10-16 2021-10-26 Office Manuel Calvo 1.2.840.1 [id number] 958 3254686 Methodi 10:20:00 00:28:[address] 3.430.2.7 Hospit a .3.080632 l .8 2021-10-16 2021-10-16 Infusion Manuel Calvo 1.2.840.1 [id number] 21 [id number] Methodi 09:15:00 12:15:[address] 3.430.2.7 Hospit a .3.389542 l .8 2021-10-16 2021-10-16 Travel 1.2.840.1 1.2.680.789 5915 503420 Methodi 00:00:00 00:00:[address] 3.430.2.7 0.2.7.3.698 Ho spita .3.311785 084.8 l .8 2021-10-15 2021-10-15 Travel 1.2.840.1 1.2.223.684 4386 103047 Methodi 00:00:00 00:00:[address] 3.430.2.7 0.2.7.3.698 Ho spita .3.987238 084.8 l .8 2021-09-18 2021-09-18 [facility] Manuel Calvo 1.2.840.1 [id number] 21 [id number] Methodi 09:15:00 12:15:[address] 3.430.2.7 Hospit a .3.005809 l .8 2021-09-18 2021-09-18 Office Manuel Calvo 1.2.840.1 [id number] 726 6682030 Methodi 10:20:00 10:40:[address] 3.430.2.7 Hospit a .3.577859 l .8 2021-09-18 2021-09-18 Travel 1.2.840.1 1.2.462.704 1401 426598 Methodi 00:00:00 00:00:[address] 3.430.2.7 0.2.7.3.698 Ho spita .3.474374 084.8 l .8 2021-09-18 2021-09-18 Orders Manuel Calvo 1.2.840.1 [id number] 434 6568630 Methodi 00:00:00 00:00:[address] 3.430.2.7 Hospit a .3.573006 l .8 2021-09-14 2021-09-14 Travel 1.2.840.1 1.2.662.840 2216 809521 Methodi 00:00:00 00:00:[address] 3.430.2.7 0.2.7.3.698 Ho spita .3.834252 084.8 l .8 2021-08-21 2021-08-30 Office Manuel Calvo 1.2.840.1 [id number] 751 [id number] Methodi 10:20:00 01:31:[address] 3.430.2.7 Hospit a .3.586199 l .8 2021-08-21 2021-08-21 Infusion Manuel Calvo 1.2.840.1 [id number] 64800752 Methodi 09:15:00 12:15:[address] 3.430.2.7 Hospit a .3.733461 l .8 2021-08-21 2021-08-21 Travel 1.2.840.1 1.2.430.123 1792 639107 Methodi 00:00:00 00:00:[address] 3.430.2.7 0.2.7.3.698 Ho spita .3.708605 084.8 l .8 2021-08-20 2021-08-20 [facility] Manuel Calvo 1.2.840.1 [id number] 316 [id number] Methodi 00:00:00 00:00:[address] 3.430.2.7 Hospit a .3.441476 l .8 2021-08-17 2021-08-17 [facility] Manuel Calvo 1.2.840.1 [id number] 21 [id number] Methodi 11:09:03 23:59:[address] 3.430.2.7 Hospit a .3.673698 l .8 2021-08-17 2021-08-17 [facility] Manuel Calvo 1.2.840.1 [id number] 21 [id number] Methodi 09:33:37 11:08:[address] 3.430.2.7 Hospit a .3.192597 l .8 2021-08-17 2021-08-17 Travel 1.2.840.1 1.2.826.347 6181 275086 Methodi 00:00:00 00:00:[address] 3.430.2.7 0.2.7.3.698 Ho spita .3.114724 084.8 l .8 2021-07-24 2021-08-16 [facility] Manuel Calvo 1.2.840.1 [id number] 846 5156696 Methodi 10:20:00 01:12:[address] 3.430.2.7 Hospit a .3.061778 l .8 2021-08-10 2021-08-10 Travel 1.2.840.1 1.2.847.849 2460 589283 Methodi 00:00:00 00:00:[address] 3.430.2.7 0.2.7.3.698 Ho spita .3.436658 084.8 l .8 2021-08-07 2021-08-07 Travel 1.2.840.1 1.2.774.657 2719 809385 Methodi 00:00:00 00:00:[address] 3.430.2.7 0.2.7.3.698 Ho spita .3.763173 084.8 l .8 2021 2021 Travel 1.2.840.1 1.2.266.886 4164 447749 Methodi 00:00:00 00:00:[address] 3.430.2.7 0.2.7.3.698 Ho spita .3.853483 084.8 l .8 2021-08-02 2021-08-02 Orders [facility], 1.2.840.1 [id number] 666 1216594 Methodi 00:00:00 00:00:00 Only Margaret 01393.1.[address] 3.430.2.7 Hospit a .3.478162 l .8 2021-07-24 2021-07-24 Infusion Manuel Calvo 1.2.840.1 [id number] 21 [id number] Methodi 09:15:00 12:15:[address] 3.430.2.7 Hospit a .3.647879 l .8 2021-07-24 2021-07-24 Travel 1.2.840.1 1.2.724.561 3467 114729 Methodi 00:00:00 00:00:[address] 3.430.2.7 0.2.7.3.698 Ho spita .3.357272 084.8 l .8 2021-07-23 2021-07-23 Orders Manuel Calvo 1.2.840.1 [id number] 092 1829908 Methodi 00:00:00 00:00:[address] 3.430.2.7 Hospit a .3.637556 l .8 2021-07-23 2021-07-23 Travel 1.2.840.1 1.2.633.593 9209 948534 Methodi 00:00:00 00:00:[address] 3.430.2.7 0.2.7.3.698 Ho spita .3.568952 084.8 l .8 2021-06-26 2021-06-26 Infusion Manuel Calvo 1.2.840.1 [id number] 81771470 Methodi 09:15:00 12:15:[address] 3.430.2.7 Hospit a .3.322318 l .8 2021-06-26 2021-06-26 Office Manuel Calvo 1.2.840.1 [id number] 944 0374553 Methodi 10:20:00 10:40:[address] 3.430.2.7 Hospit a .3.644053 l .8 2021-06-26 2021-06-26 Travel 1.2.840.1 1.2.417.413 2456 421018 Methodi 00:00:00 00:00:[address] 3.430.2.7 0.2.7.3.698 Ho spita .3.953941 084.8 l .8 2021-06-24 2021-06-24 Orders Manuel Calvo 1.2.840.1 [id number] 051 4876071 Methodi 00:00:00 00:00:[address] 3.430.2.7 Hospit a .3.419241 l .8 2021-06-21 2021-06-21 Travel 1.2.840.1 1.2.505.365 3177 701246 Methodi 00:00:00 00:00:[address] 3.430.2.7 0.2.7.3.698 Ho spita .3.596305 084.8 l .8 2021-06-01 2021-06-01 Telephone Carr, 1.2.840.1 [id number] 21 [id number] Methodi 00:00:00 00:00:[address] 3.430.2.7 Hospit a .3.376590 l .8 2021-06-01 2021-06-01 Orders Manuel Calvo 1.2.840.1 [id number] 359 [id number] Methodi 00:00:00 00:00:[address] 3.430.2.7 Hospit a .3.123300 l .8 2021-05-29 2021-05-29 Infusion Manuel Calvo 1.2.840.1 [id number] 21 82393629 Methodi 07:45:00 10:45:[address] 3.430.2.7 Hospit a .3.441551 l .8 2021-05-29 2021-05-29 Office Manuel Calvo 1.2.840.1 704379157 629 9704316 Methodi 09:00:00 09:20:[address] 3.430.2.7 Hospit a .3.610858 l .8 2021-05-29 2021-05-29 Travel 1.2.840.1 1.2.631.908 4395 298385 Methodi 00:00:00 00:00:[address] 3.430.2.7 0.2.7.3.698 Ho spita .3.357356 084.8 l .8 2021-05-23 2021-05-23 Telephone Manuel Calvo 1.2.840.1 [id number] 2 [id number] Methodi 10:20:00 10:40:[address] 3.430.2.7 Hospit a .3.251066 l .8 2021-05-23 2021-05-23 Telephone Manuel Calvo 1.2.840.1 [id number] 2 [id number] Methodi 00:00:00 00:00:[address] 3.430.2.7 Hospit a .3.654972 l .8 2021-05-22 2021-05-22 [facility] Manuel Calvo 1.2.840.1 [id number] 21 03150104 Methodi 09:30:00 23:59:[address] 3.430.2.7 Hospit a .3.629085 l .8 2021-05-22 2021-05-22 Travel 1.2.840.1 1.2.752.924 4775 239112 Methodi 00:00:00 00:00:[address] 3.430.2.7 0.2.7.3.698 Ho spita .3.318972 084.8 l .8 2021-04-17 2021-04-28 Office Manuel Calvo 1.2.840.1 [id number] 309 3575128 Methodi 09:20:00 01:17:[address] 3.430.2.7 Hospit a .3.056022 l .8 2021-04-27 2021-04-27 Orders Ferny, 1.2.840.1 023315506 2099184 Methodi 00:00:00 00:00:00 Only Unknown 83619.1.[address] 3.430.2.7 Hospit a .3.337061 l .8 2021-04-26 2021-04-26 Travel 1.2.840.1 1.2.351.228 6109 249078 Methodi 00:00:00 00:00:[address] 3.430.2.7 0.2.7.3.698 Ho spita .3.160474 084.8 l .8 2021-04-26 2021-04-26 Orders [facility], 1.2.840.1 956485170 868 6864734 Methodi 00:00:00 00:00:00 Only Margaret 25333.1.[address] 3.430.2.7 Hospit a .3.599711 l .8 2021-04-26 2021-04-26 Orders [facility], 1.2.840.1 587735078 692 5362586 Methodi 00:00:00 00:00:00 Only Margaret 62014.1.[address] 3.430.2.7 Hospit a .3.700720 l .8 2021-04-25 2021-04-25 Travel 1.2.840.1 1.2.238.946 0731 115001 Methodi 00:00:00 00:00:[address] 3.430.2.7 0.2.7.3.698 Ho spita .3.370760 084.8 l .8 2021-04-24 2021-04-24 Infusion Manuel Calvo 1.2.840.1 [id number] 21 [id number] Methodi 07:45:00 12:15:[address] 3.430.2.7 Hospit a .3.678961 l .8 2021-04-24 2021-04-24 Office Manuel Calvo 1.2.840.1 [id number] 179 8070118 Methodi 09:20:00 09:40:[address] 3.430.2.7 Hospit a .3.872163 l .8 2021-04-24 2021-04-24 [facility], 1.2.840.1 [id number] 43735 Methodi 07:00:00 07:24:32 Encounter Marielena Tirado 71790.1.[address] 3.430.2.7 Hospit a .3.840394 l .8 2021-04-24 2021-04-24 Orders Chint[place]enta 1.2.840.1 [id number] 21 [id number] Methodi 00:00:00 00:00:00 Only , Zara 93911.1.[address] 3.430.2.7 Hospit a .3.868952 l .8 2021-04-24 2021-04-24 Orders Carr, 1.2.840.1 [id number] 2099 950955 Methodi 00:00:00 00:00:00 Only Irma 49270.1.[address] 3.430.2.7 Hospit a .3.833051 l .8 2021-04-23 2021-04-23 Travel 1.2.840.1 1.2.794.028 1852 351314 Methodi 00:00:00 00:00:[address] 3.430.2.7 0.2.7.3.698 Ho spita .3.613587 084.8 l .8 2021-04-19 2021-04-19 [facility], 1.2.840.1 [id number] Methodi 23:59:00 23:59:00 Encounter Marielena Tirado 91438.1.[address] 3.430.2.7 Hospit a .3.371163 l .8 2021-04-19 2021-04-19 [facility] 1.2.840.1 [id number] 07292 Methodi 11:45:00 23:59:00 Encounter Marielena Tirado 62448.1.[address] 3.430.2.7 Hospit a .3.517673 l .8 2021-04-19 [facility]04-19 [facility] 65950 1011 5959497737 Methodi 11:15:00 12:14:05 Encounter Makayla Cuevas 00749.1.[address] 3.430.2.7 Hospit a .3.320628 l .8 2021-04-19 2021-04-19 Orders Manuel Calvo 1.2.840.1 [id number] 179 [id number] Methodi 00:00:00 00:00:[address] 3.430.2.7 Hospit a .3.880315 l .8 2021-04-19 2021-04-19 Travel 1.2.840.1 1.2.764.973 2833 326494 Methodi 00:00:00 00:00:[address] 3.430.2.7 0.2.7.3.698 spita .3.394264 084.8 l .8 2021-04-17 2021-04-17 Infusion Manuel Calvo 1.2.840.1 722551165 63494267 Methodi 07:45:00 12:15:[address] 3.430.2.7 Hospit a .3.978377 l .8 2021-04-17 2021-04-17 Travel 1.2.840.1 1.2.773.217 4675 715820 Methodi 00:00:00 00:00:[address] 3.430.2.7 0.2.7.3.698 Ho spita .3.983592 084.8 l .8 2021-04-13 2021-04-13 [facility], 1.2.840.1 [id number] 87074 Methodi 11:30:00 14:00:12 Encounter Marielena Tirado 26612.1.[address] 3.430.2.7 Hospit a .3.422646 l .8 2021-04-12 2021-04-12 [facility] 1.2.840.1 38438 1011 0722084771 Methodi 11:15:00 12:08:31 Encounter Marinelli Stephani 51182.1.[address] 3.430.2.7 Hospit a .3.995305 l .8 2021-04-11 2021-04-12 [facility], 1.2.840.1 [id number] 17 Methodi 01:00:00 01:11:26 Encounter Marielena Tirado 65155.1.[address] 3.430.2.7 Hospit a .3.684014 l .8 2021-04-12 2021-04-12 Travel 1.2.840.1 1.2.869.799 6823 204432 Methodi 00:00:00 00:00:[address] 3.430.2.7 0.2.7.3.698 Ho spita .3.296456 084.8 l .8 2021-04-11 2021-04-11 [facility], 1.2.840.1 [id number] 06 Methodi 11:00:00 11:41:12 Encounter Marielena Tirado 62794.1.[address] 3.430.2.7 Hospit a .3.708594 l .8 2021-04-10 2021-04-10 Infusion Manuel Calvo 1.2.840.1 [id number] 21 [id number] Methodi 11:30:00 16:00:[address] 3.430.2.7 Hospit a .3.187891 l .8 2021-04-10 2021-04-10 Office Manuel Calvo 1.2.840.1 [id number] 877 2837869 Methodi 14:00:00 14:20:[address] 3.430.2.7 Hospit a .3.852709 l .8 2021-04-10 2021-04-10 [facility] 1.2.840.1 [id number] 06 Methodi 10:00:00 10:18:[address] 3.430.2.7 Hospit a .3.160920 l .8 2021-04-10 2021-04-10 Orders Umoru, 1.2.840.1 089757397 960111 6907 Methodi 00:00:00 00:00:00 Only Godsfavoreynaldo 42503.1.1 [address] 3.430.2.7 Hospit a .3.156346 l .8 2021-04-10 2021-04-10 Orders Carr, 1.2.840.1 [id number] 2100 525418 Methodi 00:00:00 00:00:00 Only Irma 30145.1.[address] 3.430.2.7 Hospit a .3.968044 l .8 2021-04-10 2021-04-10 Orders Baxter, 1.2.840.1 594334319 196359 5876 Methodi 00:00:00 00:00:00 Only Cecilio Millre 64162.1.[address] 3.430.2.7 Hospit a .3.984262 l .8 2021-04-10 2021-04-10 Orders Provider, 1.2.840.1 9072630842099828 Methodi 00:00:00 00:00:00 Only Unknown 72890.1.[address] 3.430.2.7 Hospit a .3.353479 l .8 2021-04-10 2021-04-10 Travel 1.2.840.1 1.2.583.834 3287 803728 Methodi 00:00:00 00:00:[address] 3.430.2.7 0.2.7.3.698 Ho spita .3.522694 084.8 l .8 2021-04-09 2021-04-09 [facility] 1.2.840.1 [id number] 75859 35134 Methodi 10:58:48 11:12:[address] 3.430.2.7 Hospit a .3.965376 l .8 2021-04-09 2021-04-09 Orders Provider, 1.2.840.1 [id number] 2099 625980 Methodi 00:00:00 00:00:00 Only Unknown 83747.1.[address] 3.430.2.7 Hospit a .3.692412 l .8 2021-04-04 2021-04-04 [facility] 1.2.840.1 [id number] 53990 Methodi 10:10:51 10:46:[address] 3.430.2.7 Hospit a .3.499750 l .8 2021-04-04 2021-04-04 [facility] 1.2.840.1 1.2.550.903 2850 370955 Methodi 00:00:00 00:00:[address] 3.430.2.7 0.2.7.3.698 Ho spita .3.823437 084.8 l .8 2021-04-04 2021-04-04 Orders Provider, 1.2.840.1 [id number] 2099 279555 Methodi 00:00:00 00:00:00 Only Unknown 23552.1.[address] 3.430.2.7 Hospit a .3.624317 l .8 2021-04-03 2021-04-03 [facility], 1.2.840.1 [id number] 47088 51340 Methodi 23:59:00 23:59:00 Encounter Marielena Tirado 70786.1.[address] 3.430.2.7 Hospit a .3.859666 l .8 2021-04-03 2021-04-03 [facility], 1.2.840.1 [id number] 60859 67451 Methodi 15:30:00 23:59:00 Encounter Marielena Tirado 16276.1.[address] 3.430.2.7 Hospit a .3.806475 l .8 2021-04-03 2021-04-03 [facility] Marielena Ramsay 1.2.840.1 67977 1011 [id number] Methodi 11:07:27 14:09:26 Encounter Yves Stephani 31588.1.[address] 3.430.2.7 Hospit a .3.160205 l .8 2021-04-03 2021-04-03 [facility] 1.2.840.1 [id number] 21001 57852 Methodi 10:27:11 10:52:[address] 3.430.2.7 Hospit a .3.343698 l .8 2021-04-03 2021-04-03 Orders Provider, 1.2.840.1 [id number] 2100 039325 Methodi 00:00:00 00:00:00 Only Unknown 46674.1.[address] 3.430.2.7 Hospit a .3.773887 l .8 2021-04-02 2021-04-02 Office Manuel Calvo 1.2.840.1 [id number] 212 [id number] Methodi 09:20:00 14:41:[address] 3.430.2.7 Hospit a .3.229495 l .8 2021-04-02 2021-04-02 Infusion Manuel Calvo 1.2.840.1 [id number] 21 [id number] Methodi 08:30:00 14:30:[address] 3.430.2.7 Hospit a .3.081918 l .8 2021-04-02 2021-04-02 [facility] 1.2.840.1 [id number] 79211 73146 Methodi 07:15:00 07:51:[address] 3.430.2.7 Hospit a .3.233983 l .8 2021-04-02 2021-04-02 Orders Manuel Calvo 1.2.840.1 [id number] 534 [id number] Methodi 00:00:00 00:00:[address] 3.430.2.7 Hospit a .3.152988 l .8 2021-04-02 2021-04-02 Travel 1.2.840.1 1.2.343.085 7877 842015 Methodi 00:00:00 00:00:[address] 3.430.2.7 0.2.7.3.698 Ho spita .3.640010 084.8 l .8 2021-04-02 2021-04-02 Orders Provider, 1.2.840.1 [id number] 2099 033304 Methodi 00:00:00 00:00:00 Only Unknown 85152.1.[address] 3.430.2.7 Hospit a .3.841962 l .8 2021-03-30 2021-03-30 [facility] 1.2.840.1 [id number] 20625 90251 Methodi 10:07:02 10:51:[address] 3.430.2.7 Hospit a .3.031992 l .8 2021-03-30 2021-03-30 Orders Provider, 1.2.840.1 [id number] 2099 239706 Methodi 00:00:00 00:00:00 Only Unknown 59599.1.[address] 3.430.2.7 Hospit a .3.428510 l .8 2021-03-29 2021-03-29 [facility], 1.2.840.1 [id number] 26534 62967 Methodi 12:15:00 23:59:00 Encounter Marielena Tirado 49522.1.[address] 3.430.2.7 Hospit a .3.253051 l .8 2021-03-29 2021-03-29 [facility] Marielena Ramsay 1.2.840.1 15668 1011 [id number] Methodi 11:13:18 12:51:37 Encounter Stephani Marinelli 73510.1.[address] 3.430.2.7 Hospit a .3.964120 l .8 2021-03-29 2021-03-29 Hospital 1.2.840.1 [id number] 52403 Methodi 11:00:00 11:12:[address] 3.430.2.7 Hospit a .3.198710 l .8 2021-03-29 2021-03-29 Travel 1.2.840.1 1.2.720.611 0428 584836 Methodi 00:00:00 00:00:[address] 3.430.2.7 0.2.7.3.698 Ho spita .3.642452 084.8 l .8 2021-03-29 2021-03-29 Orders Provider, 1.2.840.1 [id number] 2099 046889 Methodi 00:00:00 00:00:00 Only Unknown 21754.1.[address] 3.430.2.7 Hospit a .3.515064 l .8 2021-03-28 2021-03-28 [facility] 1.2.840.1 [id number] Methodi 10:03:08 10:14:[address] 3.430.2.7 Hospit a .3.552893 l .8 2021-03-28 2021-03-28 Orders Provider, 1.2.840.1 [id number] 2099 206513 Methodi 00:00:00 00:00:00 Only Unknown 41171.1.[address] 3.430.2.7 Hospit a .3.950907 l .8 2021-03-27 2021-03-27 [facility] 1.2.840.1 [id number] Methodi 14:52:55 15:51:[address] 3.430.2.7 Hospit a .3.785065 l .8 2021-03-26 2021-03-27 [facility] Ventura Navarrete 1.2.840.1 564259 2099 [id number] Methodi 17:45:00 14:05:00 Encounter Frances Kong 33722.1.[address] 3.430.2.7 Hospit a .3.812902 l .8 2021-03-27 2021-03-27 Orders [facility], 1.2.840.1 [id number] 2099 360648 Methodi 00:00:00 00:00:00 Only Unknown 48987.1.[address] 3.430.2.7 Hospit a .3.073007 l .8 2021-03-26 2021-03-26 Infusion Manuel Calvo 1.2.840.1 [id number] Methodi 09:30:00 15:30:[address] 3.430.2.7 Hospit a .3.804627 l .8 2021-03-26 2021-03-26 Office Manuel Calvo 1.2.840.1 [id number] 209 [id number] Methodi 11:00:00 11:20:[address] 3.430.2.7 Hospit a .3.499849 l .8 2021-03-26 2021-03-26 [facility] 1.2.840.1 [id number] 21001 75160 Methodi 07:34:29 08:12:[address] 3.430.2.7 Hospit a .3.806857 l .8 2021-03-26 2021-03-26 Orders Carr, 1.2.840.1 [id number] 2100 165038 Methodi 00:00:00 00:00:00 Only Irma 37114.1.[address] 3.430.2.7 Hospit a .3.898366 l .8 2021-03-26 2021-03-26 Travel 1.2.840.1 1.2.884.922 2478 517452 Methodi 00:00:00 00:00:[address] 3.430.2.7 0.2.7.3.698 Ho spita .3.847329 084.8 l .8 2021-03-26 2021-03-26 Orders Provider, 1.2.840.1 [id number] 2099 481875 Methodi 00:00:00 00:00:00 Only Unknown 63207.1.[address] 3.430.2.7 Hospit a .3.330614 l .8 2021-03-25 2021-03-25 Orders Manuel Calvo 1.2.840.1 [id number] 288 [id number] Methodi 00:00:00 00:00:[address] 3.430.2.7 Hospit a .3.148379 l .8 2021-03-19 2021-03-24 Office Manuel Calvo 1.2.840.1 [id number] 094 [id number] Methodi 09:40:00 05:09:[address] 3.430.2.7 Hospit a .3.340958 l .8 2021-03-23 2021-03-23 [facility] 1.2.840.1 [id number] 73765 39504 Methodi 10:46:03 11:00:[address] 3.430.2.7 Hospit a .3.487324 l .8 2021-03-23 2021-03-23 [facility] 1.2.840.1 1.2.505.770 1640 992530 Methodi 00:00:00 00:00:[address] 3.430.2.7 0.2.7.3.698 Ho spita .3.244532 084.8 l .8 2021-03-23 2021-03-23 Orders Provider, 1.2.840.1 [id number] 2099 453250 Methodi 00:00:00 00:00:00 Only Unknown 19265.1.[address] 3.430.2.7 Hospit a .3.194327 l .8 2021-03-22 2021-03-22 [facility] 1.2.840.1 [id number] 87116 23194 Methodi 13:30:00 23:59:00 Encounter Marielena Tirado 00599.1.[address] 3.430.2.7 Hospit a .3.442206 l .8 2021-03-22 2021-03-22 Hospital Marielena RamsayMichael 1.2.840.1 99624 1011 [id number] Methodi 10:52:49 13:07:42 Encounter Vicky Duff Etienne 59264.1.1 006 [facility] 3.430.2.7 [facility] .3.094537 l .8 2021-03-22 2021-03-22 Hospital 1.2.840.1 [id number] 06 Methodi 10:17:08 10:51:[address] 3.430.2.7 Hospit a .3.653654 l .8 2021-03-22 2021-03-22 Orders Provider, 1.2.840.1 [id number] 2099 866680 Methodi 00:00:00 00:00:00 Only Unknown 38425.1.[address] 3.430.2.7 Hospit a .3.382797 l .8 2021-03-21 2021-03-21 [facility] Donta Almendarez 1.2.840.1 84909 1011 [id number] Methodi 11:02:29 15:39:48 Encounter Vicky Duff Etienne 60949.1.1 [facility] .3.709628 l .8 2021-03-21 2021-03-21 [facility] 1.2.840.1 [id number] 04643 Methodi 10:01:08 11:01:[address] 3.430.2.7 Hospit a .3.703836 l .8 2021-03-21 2021-03-21 Travel 1.2.840.1 1.2.325.822 1807 654535 Methodi 00:00:00 00:00:[address] 3.430.2.7 0.2.7.3.698 Ho spita .3.216258 084.8 l .8 2021-03-21 2021-03-21 Orders Provider, 1.2.840.1 [id number] 2099 [id number] Methodi 00:00:00 00:00:00 Only Unknown 64417.1.[address] 3.430.2.7 Hospit a .3.252476 l .8 2021-03-21 2021-03-21 Orders Rolando, 1.2.840.1 [id number] 425 [id number] Methodi 00:00:00 00:00:00 Only Manuel Easton 07203.1.[address] 3.430.2.7 Hospit a .3.381131 l .8 2021-03-21 2021-03-21 Orders Manuel Calvo 1.2.840.1 [id number] 127 [id number] Methodi 00:00:00 00:00:[address] 3.430.2.7 Hospit a .3.943879 l .8 2021-03-20 2021-03-20 [facility] 1.2.840.1 [id number] Methodi 10:34:40 11:10:[address] 3.430.2.7 Hospit a .3.453888 l .8 2021-03-20 2021-03-20 Orders Provider, 1.2.840.1 [id number] 2099 809362 Methodi 00:00:00 00:00:00 Only Unknown 95293.1.[address] 3.430.2.7 Hospit a .3.603982 l .8 2021-03-19 2021-03-19 [facility] 1.2.840.1 [id number] Methodi 15:33:25 23:59:[address] 3.430.2.7 Hospit a .3.491564 l .8 2021-03-19 2021-03-19 Infusion Manuel Calvo 1.2.840.1 [id number] Methodi 08:15:00 14:15:[address] 3.430.2.7 Hospit a .3.218173 l .8 2021-03-19 2021-03-19 Orders Provider, 1.2.840.1 [id number] 2099 832372 Methodi 00:00:00 00:00:00 Only Unknown 48597.1.[address] 3.430.2.7 Hospit a .3.430970 l .8 2021-03-19 2021-03-19 Orders CalvoManuel 1.2.840.1 [id number] 852 [id number] Methodi 00:00:00 00:00:[address] 3.430.2.7 Hospit a .3.929693 l .8 2021-03-19 2021-03-19 Documentat [place], 1.2.840.1 [id number] 162 [id number] Methodi 00:00:00 00:00:00 ion Estella 06232.1.[address] 3.430.2.7 Hospit a .3.197224 l .8 2021-03-19 2021-03-19 [facility] 1.2.840.1 1.2.045.077 8964 744175 Methodi 00:00:00 00:00:[address] 3.430.2.7 0.2.7.3.698 Ho spita .3.536718 084.8 l .8 2021-03-16 2021-03-16 [facility] 1.2.840.1 [id number] 76225 34656 Methodi 10:38:06 11:03:[address] 3.430.2.7 Hospit a .3.712893 l .8 2021-03-16 2021-03-16 Orders Provider, 1.2.840.1 [id number] 2099 153812 Methodi 00:00:00 00:00:00 Only Unknown 69583.1.[address] 3.430.2.7 Hospit a .3.654155 l .8 2021-03-15 2021-03-15 [facility], 1.2.840.1 [id number] 30599 77533 Methodi 12:30:00 23:59:00 Encounter Marielena Tirado 27152.1.[address] 3.430.2.7 Hospit a .3.368875 l .8 2021-03-15 2021-03-15 [facility] Marielena Ramsay 1.2.840.1 57579 1011 [id number] Methodi 11:04:24 12:20:02 Encounter Stephani Marinelli 46119.1.[address] 3.430.2.7 Hospit a .3.032448 l .8 2021-03-15 2021-03-15 [facility] 1.2.840.1 [id number] 55593 Methodi 10:36:21 11:03:[address] 3.430.2.7 Hospit a .3.001448 l .8 2021-03-15 2021-03-15 [facility] 1.2.840.1 1.2.452.851 2101 639348 Methodi 00:00:00 00:00:[address] 3.430.2.7 0.2.7.3.698 Ho spita .3.363312 084.8 l .8 2021-03-15 2021-03-15 Orders Provider, 1.2.840.1 [id number] 2100 974285 Methodi 00:00:00 00:00:00 Only Unknown 06160.1.[address] 3.430.2.7 Hospit a .3.845079 l .8 2021-03-14 2021-03-14 [facility] 1.2.840.1 [id number] 33430 Methodi 10:21:09 10:40:[address] 3.430.2.7 Hospit a .3.558452 l .8 2021-03-14 2021-03-14 Orders Provider, 1.2.840.1 [id number] 2100 435008 Methodi 00:00:00 00:00:00 Only Unknown 73233.1.[address] 3.430.2.7 Hospit a .3.390071 l .8 2021-03-13 2021-03-13 [facility] 1.2.840.1 [id number] 60783 30111 Methodi 11:00:00 11:22:[address] 3.430.2.7 Hospit a .3.269141 l .8 2021-03-12 2021-03-13 [facility] 1.2.840.1 [id number] Methodi 01:00:00 05:01:41 Encounter Marielena Tirado 80072.1.[address] 3.430.2.7 Hospit a .3.426723 l .8 2021-03-13 2021-03-13 Orders Provider, 1.2.840.1 [id number] 2099 992746 Methodi 00:00:00 00:00:00 Only Unknown 47572.1.[address] 3.430.2.7 Hospit a .3.754355 l .8 2021-03-12 2021-03-12 Infusion Manuel Calvo 1.2.840.1 [id number] 21 [id number] Methodi 08:15:00 14:15:[address] 3.430.2.7 Hospit a .3.976519 l .8 2021-03-12 2021-03-12 Office Manuel Calvo 1.2.840.1 [id number] 265 [id number] Methodi 09:40:00 10:00:[address] 3.430.2.7 Hospit a .3.207381 l .8 2021-03-12 2021-03-12 [facility] 1.2.840.1 [id number] 06 Methodi 07:30:00 07:51:01 Encounter Marielena Tirado 60961.1.[address] 3.430.2.7 Hospit a .3.054249 l .8 2021-03-12 2021-03-12 Documentat Sousa, 1.2.840.1 [id number] 060 [id number] Methodi 00:00:00 00:00:00 ion Estella 82261.1.[address] 3.430.2.7 Hospit a .3.087228 l .8 2021-03-12 2021-03-12 Travel 1.2.840.1 1.2.295.117 6869 192953 Methodi 00:00:00 00:00:[address] 3.430.2.7 0.2.7.3.698 Ho spita .3.257037 084.8 l .8 2021-03-12 2021-03-12 Orders Provider, 1.2.840.1 [id number] 2099881 Methodi 00:00:00 00:00:00 Only Unknown 93262.1.[address] 3.430.2.7 Hospit a .3.789021 l .8 2021-03-11 2021-03-11 Orders Calvo, Manuel 1.2.840.1 [id number] 268 [id number] Methodi 00:00:00 00:00:[address] 3.430.2.7 Hospit a .3.262315 l .8 2021-03-08 2021-03-08 Travel 1.2.840.1 1.2.814.596 3967 307052 Methodi 00:00:00 00:00:[address] 3.430.2.7 0.2.7.3.698 Ho spita .3.163359 084.8 l .8 2021-03-07 2021-03-07 Nurse Only Rosacina, 1.2.840.1 [id number] 2 [id number] Methodi 00:00:00 00:00:[address] 3.430.2.7 Hospit a .3.911440 l .8 2021-03-07 2021-03-07 Orders Rosacina, 1.2.840.1 [id number] [id number] Methodi 00:00:00 00:00:00 Only Merlessa 88619.1.[address] 3.430.2.7 Hospit a .3.889772 l .8 2021-03-05 2021-03-05 Infusion Manuel Calvo 1.2.840.1 [id number] 21 [id number] Methodi 08:15:00 14:15:[address] 3.430.2.7 Hospit a .3.387915 l .8 2021-03-05 2021-03-05 Office Manuel Calvo 1.2.840.1 [id number] 164 [id number] Methodi 09:40:00 10:00:[address] 3.430.2.7 Hospit a .3.454033 l .8 2021-03-05 2021-03-05 Oncology Vásquez, 1.2.840.1 [id number] 2099467 Methodi 00:00:00 00:00:00 [facility] Evgeny 46461.1.1 774 s t ip 3.430.2.7 Hospit a .3.203782 l .8 2021-03-05 2021-03-05 Travel 1.2.840.1 1.2.030.062 3383 564999 Methodi 00:00:00 00:00:[address] 3.430.2.7 0.2.7.3.698 Ho spita .3.120357 084.8 l .8 2021-03-02 2021-03-02 Travel 1.2.840.1 1.2.325.601 6759 674549 Methodi 00:00:00 00:00:[address] 3.430.2.7 0.2.7.3.698 Ho spita .3.747976 084.8 l .8 2021-02-27 2021-02-27 Social Vastine, 1.2.840.1 [id number] 50 Methodi 00:00:00 00:00:00 Work Yanni 32664.1.[address] 3.430.2.7 Hospit a .3.702127 l .8 2021-02-26 2021-02-26 Infusion Manuel Calvo 1.2.840.1 [id number] 21 [id number] Methodi 09:00:00 15:00:[address] 3.430.2.7 Hospit a .3.798570 l .8 2021-02-26 2021-02-26 [facility], 1.2.840.1 [id number] 92088 37245 Methodi 12:00:00 12:45:13 Encounter Marielena Tirado 49239.1.[address] 3.430.2.7 Hospit a .3.912912 l .8 2021-02-26 2021-02-26 [facility].840.[facility] 97628 1189 0703803961 Methodi 10:15:00 10:59:00 Encounter Artem Urrutia 99506.1.[address] 3.430.2.7 Hospit a .3.256302 l .8 2021-02-26 2021-02-26 Office Manuel Calvo 1.2.840.1 [id number] 925 [id number] Methodi 10:00:00 10:20:[address] 3.430.2.7 Hospit a .3.230158 l .8 2021-02-26 2021-02-26 Documentat [place] 1.2.840.1 [id number] Methodi 00:00:00 00:00:00 Zara meyer 26906.1.[address] 3.430.2.7 Hospit a .3.951146 l .8 2021-02-26 2021-02-26 Travel 1.2.840.1 1.2.783.490 2752 679381 Methodi 00:00:00 00:00:[address] 3.430.2.7 0.2.7.3.698 Ho spita .3.182879 084.8 l .8 2021-02-22 2021-02-22 [facility] Manuel Calvo 1.2.840.1 [id number] 21 [id number] Methodi 06:58:27 23:59:[address] 3.430.2.7 Hospit a .3.122006 l .8 2021-02-22 2021-02-22 Travel 1.2.840.1 1.2.623.407 3319 089255 Methodi 00:00:00 00:00:[address] 3.430.2.7 0.2.7.3.698 Ho spita .3.635202 084.8 l .8 2021-02-19 2021-02-20 [facility], 1.2.840.1 [id number] Methodi 01:00:00 04:58:29 Encounter Marielena Tirado 21589.1.[address] 3.430.2.7 Hospit a .3.551954 l .8 2021-02-20 2021-02-20 [facility], 1.2.840.1 [id number] 2099546 Methodi 00:00:00 00:00:00 Mariel[address] Tir[address]98.1.[address] 3.430.2.7 Hospit a .3.668227 l .8 2021-02-19 2021-02-19 Travel 1.2.840.1 1.2.267.091 1544 095239 Methodi 00:00:00 00:00:[address] 3.430.2.7 0.2.7.3.698 Ho spita .3.147044 084.8 l .8 2021-02-19 2021-02-19 Orders [place], 1.2.840.1 [id number] 638 9551815 Methodi 00:00:00 00:00:00 Only Margaret 10823.1.[address] 3.430.2.7 Hospit a .3.033745 l .8 2021-02-15 2021-02-15 [facility], 1.2.840.1 [id number] Methodi 00:00:00 00:00:00 Mariel[address]10.1.[address] 3.430.2.7 Hospit a .3.209052 l .8 2021-02-15 2021-02-15 Travel 1.2.840.1 1.2.399.343 8774 964244 Methodi 00:00:00 00:00:[address] 3.430.2.7 0.2.7.3.698 Ho spita .3.649200 084.8 l .8 2021-02-07 2021-02-14 Manuel Oseguera 1.2.840.1 [id number] 213 6573687 Methodi 11:20:00 07:01:[address] 3.430.2.7 Hospit a .3.657245 l .8 2021-02-14 2021-02-14 Orders [place], 1.2.840.1 [id number] 634 9741947 Methodi 00:00:00 00:00:00 Only Margaret 06829.1.[address] 3.430.2.7 Hospit a .3.287490 l .8 2021-02-12 2021-02-12 Travel 1.2.840.1 1.2.293.907 1264 896132 Methodi 00:00:00 00:00:[address] 3.430.2.7 0.2.7.3.698 Ho spita .3.141036 084.8 l .8 2021-02-09 2021-02-09 Orders Manuel Calvo 1.2.840.1 [id number] 509 7501998 Methodi 00:00:00 00:00:[address] 3.430.2.7 Hospit a .3.510340 l .8 2021-02-09 2021-02-09 Orders Sri, 1.2.840.1 [id number] 228384 3139 Methodi 00:00:00 00:00:00 Only Deanna 79748.1.[address] 3.430.2.7 Hospit a .3.881146 l .8 2021-02-08 2021-02-08 Orders El angelica, 1.2.840.1 [id number] 696 Methodi 00:00:00 00:00:00 Only Ember 11031.1.[address] 3.430.2.7 Hospit a .3.416122 l .8 2021-02-07 2021-02-07 [facility] Manuel Calvo 1.2.840.1 [id number] [id number] Methodi 09:30:00 23:59:[address] 3.430.2.7 Hospit a .3.574967 l .8 2021-02-07 2021-02-07 Travel 1.2.840.1 1.2.933.366 5057 099115 Methodi 00:00:00 00:00:[address] 3.430.2.7 0.2.7.3.698 Ho spita .3.219914 084.8 l .8 2021-02-06 2021-02-06 Telephone Delfino, 1.2.840.1 [id number] Methodi 00:00:00 00:00:[address] 3.430.2.7 Hospit a .3.444047 l .8 2021-02-05 2021-02-05 Telephone Prieto, 1.2.840.1 [id number] 2099383 Methodi 00:00:00 00:00:00 Petty Richards 87921.1.1 [address] 3.430.2.7 Hospit a .3.195024 l .8 2021-02-04 2021-02-04 Orders Manuel Calvo 1.2.840.1 [id number] 536 3057531 Methodi 00:00:00 00:00:[address] 3.430.2.7 Hospit a .3.748450 l .8 2021-01-25 2021-02-01 Lab Adalid, 1.2.840.1 813472422 664412 8415 Methodi 11:30:00 08:02:08 Donta Rodriguez 95926.1.[address] 3.430.2.7 Hospit a .3.039589 l .8 2021-01-29 2021-01-29 Hospital [facility], 1.2.840.1 [id number] 68442 20176 Methodi 09:21:00 17:47:00 Encounter Donta Rodriguez 82426.1.[address] 3.430.2.7 Hospit a .3.268188 l .8 2021-01-29 2021-01-29 Surgery [facility], 1.2.840.1 [id number] 082621 0898 Methodi 14:20:00 16:30:00 Donta Rodriguez 89212.1.[address] 3.430.2.7 Hospit a .3.900734 l .8 2021-01-29 2021-01-29 Anesthesia Hugh Damon 1.2.840.1 1040 80236 [id number] Methodi 13:05:00 14:57:00 Event Lata Chowdary 27746.1.[address] 3.430.2.7 Hospit a .3.478635 l .8 2021-01-29 2021-01-29 Travel 1.2.840.1 1.2.204.628 4050 506787 Methodi 00:00:00 00:00:[address] 3.430.2.7 0.2.7.3.698 spita .3.524977 084.8 l .8 2021-01-25 2021-01-25 Office [facility], 1.2.840.1 [id number] 988068 4970 Methodi 10:00:00 10:53:07 Visit Donta Rodriguez 55796.1.[address] 3.430.2.7 Hospit a .3.456786 l .8 2021-01-25 2021-01-25 Travel 1.2.840.1 1.2.343.523 5148 059727 Methodi 00:00:00 00:00:[address] 3.430.2.7 0.2.7.3.698 spita .3.708889 084.8 l .8 2021-01-24 2021-01-24 Abstract Levi 1.2.840.1 [id number] 2100 702153 Methodi 00:00:00 00:00:[address] 3.430.2.7 Hospit a .3.382650 l .8 2021-01-24 2021-01-24 Telephone LubnaManuel 1.2.840.1 [id number] 2 [id number] Methodi 00:00:00 00:00:[address] 3.430.2.7 Hospit a .3.558605 l .8 2021-01-10 2021-01-10 Outpatient MANUEL CALVO [facility] 2100 [id number] [place] 00:00:00 00:00:[address] 2021-01-10 2021-01-10 Outpatient MANUEL CALVO [facility] 2100 [id number] [place] 00:00:00 00:00:00 380 Method i 2021-01-05 2021-01-05 Outpatient MANUEL CALVO [facility] 2100 [id number] [place] 00:00:00 00:00:00 286 Method i 2020-12-13 2020-12-13 Outpatient MANUEL CALVO [facility] 2100 [id number] [place] 00:00:00 00:00:00 478 Method i 2020-12-13 2020-12-13 Outpatient MANUEL CALVO [facility] 2100 [id number] [place] 00:00:00 00:00:[address] 2020-12-06 2020-12-06 Outpatient MANUEL CAVLO [facility] 2100 [id number] [place] 00:00:00 00:00:[address] 2020-11-15 2020-11-15 Outpatient MANUEL CALVO [facility] 2100 [id number] [place] 00:00:00 00:00:[address] 2020-11-15 2020-11-15 Outpatient MANUEL CALVO [facility] 2100 [id number] [place] 00:00:00 00:00:[address] 2020-10-18 2020-10-18 Outpatient MANUEL CALVO [facility] 2100 [id number] [place] 00:00:00 00:00:[address] 2020-10-18 2020-10-18 Outpatient MANUEL CALVO [facility] 2100 [id number] [place] 00:00:00 00:00:[address] 2020-09-20 2020-09-20 Outpatient MANUEL CALVO [facility] 2100 [id number] [place] 00:00:00 00:00:[address] 2020-09-20 2020-09-20 Outpatient MANUEL CALVO [facility] 2100 [id number] [place] 00:00:00 00:00:[address] 2020-09-01 2020-09-01 Outpatient MANUEL CALVO [facility] 2100 [id number] [place] 00:00:00 00:00:[address] 2020-08-23 2020-08-23 Outpatient MANUEL CALVO [facility] 2100 [id number] [place] 00:00:00 00:00:[address] 2020-08-23 2020-08-23 Outpatient MANUEL CALVO [facility] 2100 [id number] [place] 00:00:00 00:00:[address] 2020-07-26 2020-07-26 Outpatient MANUEL CALVO [facility] 2100 [id number] [place] 00:00:00 00:00:[address] 2020-07-26 2020-07-26 Outpatient MANUEL CALVO [facility] 2100 [id number] [place] 00:00:00 00:00:[address] 2020-06-30 2020-07-14 Outpatient MANUEL CALVO [facility] 2100 [id number] [place] 00:00:00 00:00:[address] 2020-06-28 2020-06-28 Outpatient MANUEL CALVO [facility] 2100 [id number] [place] 00:00:00 00:00:[address] 2020-06-28 2020-06-28 Outpatient MANUEL CALVO [facility] 2100 [id number] [place] 00:00:00 00:00:[address] 2020-05-31 2020-05-31 Outpatient CALVO, [facility] 2100 [id number] [place] 00:00:00 00:00:[address] 2020-05-31 2020-05-31 Outpatient CALVO, [facility] 2100 [id number] [place] 00:00:00 00:00:[address] 2020-05-29 2020-05-29 Outpatient CALVO, MANUEL [facility] 2100 [id number] [place] 00:00:00 00:00:[address] 2020-05-03 2020-05-03 Outpatient CALVO, [facility] 2100 [id number] [place] 00:00:00 00:00:[address] 2020-05-03 2020-05-03 Outpatient CALVO, [facility] 2100 [id number] [place] 00:00:00 00:00:[address] 2020-04-04 2020-04-04 Outpatient MANUEL CALVO [facility] 2100 [id number] [place] 00:00:00 00:00:[address] 2020-04-04 2020-04-04 Outpatient CALVO, MANUEL [facility] 2100 [id number] [place] 00:00:00 00:00:[address] 2020-03-16 2020-03-16 Outpatient CALVO, [facility] 2100 [id number] [place] 00:00:00 00:00:[address] 2020-03-08 2020-03-08 Outpatient LUBNA [facility] 2100 [id number] [place] 00:00:00 00:00:[address] 2020-03-08 2020-03-08 Outpatient CALVO, [facility] 2100 [id number] [place] 00:00:00 00:00:[address] 2020-02-09 2020-02-09 Outpatient CALVO [facility] 2100 [id number] [place] 00:00:00 00:00:[address] 2020-02-09 2020-02-09 Outpatient CALVO [facility] 2100 [id number] [place] 00:00:00 00:00:[address] 2020-01-12 2020-01-12 Outpatient CALVOMANUEL [facility] 2100 [id number] [place] 00:00:00 00:00:[address] 2020-01-12 2020-01-12 Outpatient CALVO, [facility] 2100 [id number] [place] 00:00:00 00:00:[address] 2020-01-11 2020-01-11 Outpatient MANUEL CALVO [facility] 2100 [id number] [place] 00:00:00 00:00:[address] 2019-12-22 2019-12-22 Outpatient MANUEL CALVO [facility] 2100 [id number] [place] 00:00:00 00:00:[address] 2019-12-15 2019-12-15 Outpatient LUBNA [facility] 2100 [id number] [place] 00:00:00 00:00:[address] 2019-12-15 2019-12-15 Outpatient LUBNA [facility] 2100 [id number] [place] 00:00:00 00:00:[address] 2019-12-15 2019-12-15 Outpatient MANUEL CALVO [facility] 2100 [id number] [place] 00:00:00 00:00:[address] 2019-12-02 2019-12-02 Outpatient MANUEL CALVO [facility] 2100 [id number] [place] 00:00:00 00:00:[address] 2019-11-17 2019-11-17 Outpatient MANUEL CALVO [facility] 2100 [id number] [place] 00:00:00 00:00:[address] 2019-11-17 2019-11-17 Outpatient LUBNA [facility] 2100 [id number] [place] 00:00:00 00:00:[address] 2019-11-03 2019-11-03 Outpatient MADHU [facility] 2100 [id number] [place] 00:00:00 00:00:00 MANUEL [address] 2019-10-20 2019-10-20 Outpatient LUBNA [facility] 2100 [id number] [place] 00:00:00 00:00:[address] 2019-10-20 2019-10-20 Outpatient LUBNA [facility] 2100 [id number] [place] 00:00:00 00:00:[address] 2019-10-13 2019-10-13 Outpatient AUDI [facility] [id number] 887 [place] 00:00:00 00:00:00 MARIELENA [address] 2019-10-13 2019-10-13 Outpatient AUDI, [facility] [id number] 237 [place] 00:00:00 00:00:00 MARIELENA [address] 2019-10-13 2019-10-13 Outpatient FARACH, [facility] [id number] 516 [place] 00:00:00 00:00:00 MARIELENA [address] 2019-10-11 2019-10-12 Outpatient FARACH, [facility] [id number] 077 [place] 00:00:00 00:00:00 MARIELENA [address] 2019-10-11 2019-10-11 Outpatient FARACH, [facility] [id number] [place] 00:00:00 00:00:00 MARIELENA [address] 2019-10-08 2019-10-08 Outpatient FARACH, [facility] [id number] 862 [place] 00:00:00 00:00:00 MARIELENA [address] 2019-10-08 2019-10-08 Outpatient FARACH, [facility] [id number] 078 [place] 00:00:00 00:00:00 MARIELENA [address] 2019-10-06 2019-10-06 Outpatient FARACH, [facility] [id number] 862 [place] 00:00:00 00:00:00 MARIELENA [address] 2019-10-05 2019-10-05 Outpatient FARACH, [facility] [id number] 887 [place] 00:00:00 00:00:00 MARIELENA [address] 2019-09-29 2019-09-29 Outpatient MANUEL CALVO [facility] [id number] [place] 00:00:00 00:00:[address] 2019-09-29 2019-09-29 Outpatient LUBNAMANUEL [facility] [id number] [place] 00:00:00 00:00:[address] 2019-09-29 2019-09-29 Outpatient CALVOMANUEL [facility] [id number] [place] 00:00:00 00:00:[address] 2019-09-29 2019-09-29 Outpatient CALVOMANUEL [facility] [id number] [place] 00:00:00 00:00:[address] 2019-09-29 2019-09-29 Outpatient AUDI, [facility] [id number] 762 [place] 00:00:00 00:00:00 MARIELENA [address] 2019-09-23 2019-09-23 Outpatient FARACH, [facility] [id number] 492 [place] 00:00:00 00:00:00 MARIELENA [address] 2019-09-20 2019-09-21 Outpatient FARACH, [facility] [id number] 239 [place] 00:00:00 00:00:00 MARIELENA [address] 2019-09-20 2019-09-20 Outpatient LUBNA, MANUEL [facility] [id number] [place] 00:00:00 00:00:[address] 2019-09-20 2019-09-20 Outpatient AUDI, [facility] [id number] 239 [place] 00:00:00 00:00:00 MARIELENA [address] 2019-09-10 2019-09-11 Outpatient FAROSIRIS, [facility] [id number] 796 [place] 00:00:00 00:00:00 MARIELENA [address] 2019-09-02 2019-09-02 Outpatient LYNN, [facility] [id number] 202 [place] 00:00:00 00:00:00 EDWARD [address] 2019-08-24 2019-08-24 Outpatient LYNN, [facility] [id number] 014 [place] 00:00:00 00:00:00 EDWARD [address] 2019-08-02 2019-08-02 Outpatient LYNN, [facility] [id number] 125 [place] 00:00:00 00:00:00 EDWARD [address] 2019-07-20 2019-07-20 Outpatient LYNN, [facility] [id number] 911 [place] 00:00:00 00:00:00 EDWARD [address] 2019-07-08 2019-07-08 Outpatient LYNN, [facility] [id number] 651 [place] 00:00:00 00:00:00 EDWARD [address] 2019-07-08 2019-07-08 Outpatient LYNN, [facility] [id number] 364 [place] 00:00:00 00:00:00 EDWARD [address] 2019-07-08 2019-07-08 Outpatient LYNN, [facility] [id number] 646 [place] 00:00:00 00:00:00 EDWARD [address] 2019-07-08 2019-07-08 Outpatient LYNN, [facility] [id number] 650 [place] 00:00:00 00:00:00 EDWARD [address] Results Test Description Test Time Test Comments Results Result Comments Source RAD ONC DAILY TREATMENT 2022-12-10 15:44:56 Test Item Value Reference Range Interpretation Comme nts Course ID (test code = 5706) C5 Course Start Date (test code = 5707) 2022-11-20 @17:01 Treatment Elapsed Days (test code = 5709) 8 Course Intent (test code = 5686) Palliative Treatment Dates (test code = 5685) First Treatment Date: 2022-12-02 @12:38Last Treatment Date: 2022-12-10 @10:37 Reference Point ID (test code = 5710) Lt Frontal Dosage Given to Date in Gy (test code = 24 5711) Session Dosage Given in Gy (test code = 6 5712) Plan ID (test code = 5713) Lt Frontal Fractions Treated to Date (test code = 4 of 5 5715) Prescribed Dose Per Fraction in Gy (test 6 code = 5716) Prescription Dose in cGy (test code = 3000 5717) [facility] ONC DAILY [id number] 19:39:24 Test Item Value Reference Range Interpretation Comments Course ID (test code = C5 5706) Course Start Date (test 2022-11-20 @17:01 code = 5707) Treatment Elapsed Days 4 (test code = 5709) Course Intent (test code Palliative = 5686) Treatment Dates (test First Treatment Date: code = 5685) 2022-12-02 @12:38Last Treatment Date: 2022-12-06 @14:32 Reference Point ID (test Lt Frontal code = 5710) Dosage Given to Date in 18 Gy (test code = 5711) Session Dosage Given in 6 Gy (test code = 5712) Plan ID (test code = Lt Frontal 5713) Fractions Treated to 3 of 5 Date (test code = 5715) Prescribed Dose Per 6 Fraction in Gy (test code = 5716) Prescription Dose in cGy 3000 (test code = 5717) [facility] ONC COURSE [id number] 21:40:48 Test Item Value Reference Range Interpretation Comments Course ID (test code = C4 5706) Course Start Date (test 2022-07-08 @14:51 code = 5707) Treatment Elapsed Days 10 (test code = 5709) Course Intent (test code Curative w/chemo = 5686) Treatment Dates (test Course End Date: code = 5685) 2022-12-05 @16:40First Treatment Date: 2022-07-16 @14:30Last Treatment Date: 2022-07-26 @10:14 Reference Point ID (test Liver code = 5710) Dosage Given to Date in 50 Gy (test code = 5711) Plan ID (test code = Liver 5713) Plan Name (test code = Liver 5714) Fractions Treated to 5 of 5 Date (test code = 5715) Prescribed Dose Per 10 Fraction in Gy (test code = 5716) Prescription Dose in cGy 5000 (test code = 5717) [facility] ONC DAILY [id number] 18:22:22 Test Item Value Reference Range Interpretation Comments Course ID (test code = C5 5706) Course Start Date (test 2022-11-20 @17:01 code = 5707) Treatment Elapsed Days 2 (test code = 5709) Course Intent (test code Palliative = 5686) Treatment Dates (test First Treatment Date: code = 5685) 2022-12-02 @12:38Last Treatment Date: 2022-12-04 @13:14 Reference Point ID (test Lt Frontal code = 5710) Dosage Given to Date in 12 Gy (test code = 5711) Session Dosage Given in 6 Gy (test code = 5712) Plan ID (test code = Lt Frontal 5713) Fractions Treated to 2 of 5 Date (test code = 5715) Prescribed Dose Per 6 Fraction in Gy (test code = 5716) Prescription Dose in cGy 3000 (test code = 5717) [facility] ONC DAILY [id number] 17:49:17 Test Item Value Reference Range Interpretation Comments Course ID (test code = C5 5706) Course Start Date (test 2022-11-20 @17:01 code = 5707) Treatment Elapsed Days 0 (test code = 5709) Course Intent (test code Palliative = 5686) Treatment Dates (test First Treatment Date: code = 5685) 2022-12-02 @12:38Last Treatment Date: 2022-12-02 @12:41 Reference Point ID (test Lt Frontal code = 5710) Dosage Given to Date in 6 Gy (test code = 5711) Session Dosage Given in 6 Gy (test code = 5712) Plan ID (test code = Lt Frontal 5713) Fractions Treated to 1 of 5 Date (test code = 5715) Prescribed Dose Per 6 Fraction in Gy (test code = 5716) Prescription Dose in cGy 3000 (test code = 5717) [address]2023-06-22 18:29:24 Test Item Value Reference Range Interpretation Comments Ventricular rate (test 92 code = 253) Atrial rate (test code = 92 255) CT interval (test code = 138 266) QRSD [...] Ross MD ([id number]) on 10/31/2022 1:29:[address]2023-06-22 18:29:24 Test Item Value Reference Range Interpretation Comments Ventricular rate (test 92 code = 253) Atrial rate (test code = 92 255) CT interval (test code = 138 266) QRSD [...] Ross MD ([id number]) on 10/31/2022 1:29:22 PM [address]2023-06-22 18:29:24 Test Item Value Reference Range Interpretation Comments Ventricular rate (test 92 code = 253) Atrial rate (test code = 92 255) CT interval (test code = 138 266) QRSD [...] Ross MD ([id number]) on 10/31/2022 1:29:22 PM [facility]2023-06-22 14:55:00 Test Item Value Reference Range Interpretation Comments POC glucose (test 97 mg/dL 65-99 Mult[employer] Program[employer] N libby: Susan code = 90873-9) FatiaditiDevice ID: [id number] able: No Action Needed [facility]2023-06-22 14:55:00 Test Item Value Reference Range Interpretation Comments POC glucose (test 97 mg/dL 65-99 [employer] Program[employer] N libby: Susan code = 95511-7) FatiaditiDevice ID: [id number] able: No Action Needed [facility]2023-06-22 14:55:00 Test Item Value Reference Range Interpretation Comments POC glucose (test 97 mg/dL 65-99 Multimedia Program[employer] N libby: Susan code = 82922-3) FatiaditiDevice ID: [id number] able: No Action Needed [facility] [id number] 19:13:43 Test Item Value Reference Range Interpretation Comments Case number (test code = [id number]) Surgical pathology See link below for report (test code = PDF Lab Report 2255) Result status (test code This is Final Report = [id number]) for [id number] [facility] [id number] 19:13:43 Test Item Value Reference Range Interpretation Comments Case number (test code = [id number]) Surgical pathology See link below for report (test code = PDF Lab Report 2255) Result status (test code This is Final Report = [id number]) for [id number] [facility] pathology [id number] 19:13:43 Test Item Value Reference Range Interpretation Comments Case number (test code = [id number]) Surgical pathology See link below for report (test code = PDF Lab Report 2255) Result status (test code This is Final Report = [id number]) [facility] [id number] [id number] 16:47:59 Test Item Value Reference Range Interpretation Comments SUPPLIER NAME (test [facility] code = 6415) SUPPLIER PHONE (test code = 6416) ORDER STATUS (test code Delivery Successful = 6417) DELIVERY NOTE (test code = 6419) REQUESTED DELIVEY DATE 10/30/2022 (test code = 6420) ITEM DESCRIPTION (test Wheeled Walker, Adult Qty: 1 code = 6423) EXPECTED DELIVERY DATE 10/30/2022 (test code = 6421) ACTUAL DELIVERY DATE 10/30/2022 (test code = 6422) [facility]2023-06-21 16:47:59 Test Item Value Reference Range Interpretation Comments SUPPLIER NAME (test [employer] [place] code = 6415) SUPPLIER PHONE (test code = 6416) ORDER STATUS (test code Delivery Successful = 6417) DELIVERY NOTE (test code = 6419) REQUESTED DELIVEY DATE 10/30/2022 (test code = 6420) ITEM DESCRIPTION (test Edwigeed Walker, Adult Qty: 1 code = 6423) EXPECTED DELIVERY DATE 10/30/2022 (test code = 6421) ACTUAL DELIVERY DATE 10/30/2022 (test code = 6422) [facility]2023-06-21 16:47:59 Test Item Value Reference Range Interpretation Comments SUPPLIER NAME (test [employer] [place] code = 6415) SUPPLIER PHONE (test code = 6416) ORDER STATUS (test code Delivery Successful = 6417) DELIVERY NOTE (test code = 6419) REQUESTED DELIVEY DATE 10/30/2022 (test code = 6420) ITEM DESCRIPTION (test Edwigeed Walker, Adult Qty: 1 code = 6423) EXPECTED DELIVERY DATE 10/30/2022 (test code = 6421) ACTUAL DELIVERY DATE 10/30/2022 (test code = 6422) [facility] platelet pheresis, 1 [id number] 09:49:00 Test Item Value Reference Range Interpretation Comments Product name (test code Platelets Aph LR, Path = 25) Red cont2 Unit number (test code [id number] = [id number]) Product code (test code N3848P75 = 3092) Dispense status (test Transfused code = 24) Blood expiration date (test code = 302) Blood type code (test 6200 code = 308) Blood type (test code = A POSITIVE 1314) Compatibility (test Not required code = 6400) [facility] platelet pheresis, 1 [id number] 09:49:00 Test Item Value Reference Range Interpretation Comments Product name (test code Platelets Aph LR, Path = 25) Red cont2 Unit number (test code [id number] = [id number]) Product code (test code O6901Q21 = 3092) Dispense status (test Transfused code = 24) Blood expiration date (test code = 302) Blood type code (test 6200 code = 308) Blood type (test code = A POSITIVE 1314) Compatibility (test Not required code = 6400) [facility] platelet pheresis, 1 [id number] 09:49:00 Test Item Value Reference Range Interpretation Comments Product name (test code Platelets Aph LR, Path = 25) Red cont2 Unit number (test code [id number] = [id number]) Product code (test code I7764X51 = 3092) Dispense status (test Transfused code = 24) Blood expiration date (test code = 302) Blood type code (test 6200 code = 308) Blood type (test code = A POSITIVE 1314) Compatibility (test Not required code = 6400) [facility] DAILY [id number] 15:22:25 Test Item Value Reference Range Interpretation [...] in cGy 5000 (test code = 5717) [facility] DAILY [id number] 15:22:25 Test Item Value Reference Range Interpretation [...] in cGy 5000 (test code = 5717) [facility] DAILY [id number] 15:22:25 Test Item Value Reference Range Interpretation [...] in cGy 5000 (test code = 5717) [facility] DAILY [id number] 15:22:25 Test Item Value Reference Range Interpretation [...] in cGy 5000 (test code = 5717) [facility] DAILY [id number] 18:21:01 Test Item Value Reference Range Interpretation [...] cGy 5000 (test code = 5717) [facility] ONC DAILY [id number] 18:21:01 Test Item Value Reference Range Interpretation [...] in cGy 5000 (test code = 5717) [facility] DAILY [id number] 18:21:01 Test Item Value Reference Range Interpretation [...] code = Liver 5714) Fractions Treated to of 5 Date (test code = 5715) Prescribed Dose Per 10 Fraction in Gy (test code = 5716) Prescription Dose in cGy 5000 (test code = 5717) [facility] DAILY [id number] 18:21:01 Test Item Value Reference Range Interpretation [...] in cGy 5000 (test code = 5717) [facility] DAILY [id number] 18:26:14 Test Item Value Reference Range Interpretation [...] in cGy 5000 (test code = 5717) [facility] DAILY [id number] 18:26:14 Test Item Value Reference Range Interpretation [...] in cGy 5000 (test code = 5717) [facility] DAILY [id number] 18:26:14 Test Item Value Reference Range Interpretation [...] in cGy 5000 (test code = 5717) [facility] DAILY [id number] 18:26:14 Test Item Value Reference Range Interpretation [...] in cGy 5000 (test code = 5717) [facility] DAILY [id number] 19:49:09 Test Item Value Reference Range Interpretation [...] in cGy 5000 (test code = 5717) [facility] DAILY [id number] 19:49:09 Test Item Value Reference Range Interpretation [...] in cGy 5000 (test code = 5717) [facility] DAILY [id number] 19:49:09 Test Item Value Reference Range Interpretation [...] cGy 5000 (test code = 5717) [facility] ONC DAILY [id number] 19:49:09 Test Item Value Reference Range Interpretation [...] cGy 5000 (test code = 5717) [facility] ONC DAILY [id number] 20:40:34 Test Item Value Reference Range Interpretation [...] cGy 5000 (test code = 5717) [facility] ONC DAILY [id number] 20:40:34 Test Item Value Reference Range Interpretation [...] in cGy 5000 (test code = 5717) [facility] DAILY [id number] 20:40:34 Test Item Value Reference Range Interpretation [...] in cGy 5000 (test code = 5717) [facility] DAILY [id number] 20:40:34 Test Item Value Reference Range Interpretation [...] in cGy 5000 (test code = 5717) [facility] [id number] 16:28:00 Test Item Value Reference Range Interpretation Comments POC glucose (test code 108 mg/dL 65-99 H Opera tor Name: Edilberto = 34397-4) BlaineDevice ID : [id number] able: [facility] Notified solderer Interpretation Abnormal (test code = 71293-6) [facility] ONC COURSE [id number] 14:20:15 Test Item Value Reference Range Interpretation [...] = 5710) Dosage Given to Date in 60.6235037 Gy (test code = 5711) Plan ID (test code = Subcarina 5713) Plan Name (test code = Subcarina 5714) Fractions Treated to 30 Date (test code = 5715) Prescribed Dose Per 2 Fraction in Gy (test code = 5716) Prescription Dose in cGy 6000 (test code = 5717) [facility] ONC COURSE [id number] 14:20:15 Test Item Value Reference Range Interpretation [...] = 5710) Dosage Given to Date in 60.3035132 Gy (test code = 5711) Plan ID (test code = Subcarina 5713) Plan Name (test code = Subcarina 5714) Fractions Treated to 30 30 Date (test code = 5715) Prescribed Dose Per 2 Fraction in Gy (test code = 5716) Prescription Dose in cGy 6000 (test code = 5717) [facility] ONC COURSE [id number] 14:20:15 Test Item Value Reference Range Interpretation [...] = 5710) Dosage Given to Date in 60.9037421 Gy (test code = 5711) Plan ID (test code = Subcarina 5713) Plan Name (test code = Subcarina 5714) Fractions Treated to 30 Date (test code = 5715) Prescribed Dose Per 2 Fraction in Gy (test code = 5716) Prescription Dose in cGy 6000 (test code = 5717) [facility] ONC COURSE [id number] 14:20:15 Test Item Value Reference Range Interpretation [...] = 5710) Dosage Given to Date in 60.7391520 Gy (test code = 5711) Plan ID (test code = Subcarina 5713) Plan Name (test code = Subcarina 5714) Fractions Treated to Date (test code = 5715) Prescribed Dose Per 2 Fraction in Gy (test code = 5716) Prescription Dose in cGy 6000 (test code = 5717) [facility] DAILY [id number] 20:08:59 Test Item Value Reference Range Interpretation [...] = 5710) Dosage Given to Date in 60.9774650 Gy (test code = 5711) Session Dosage Given in 2.80916757 Gy (test code = 5712) Plan ID (test code = Subcarina 5713) Fractions Treated to Date (test code = 5715) Prescribed Dose Per 2 Fraction in Gy (test code = 5716) Prescription Dose in cGy 6000 (test code = 5717) [facility] DAILY [id number] 20:08:59 Test Item Value Reference Range Interpretation [...] = 5710) Dosage Given to Date in 60.9345935 Gy (test code = 5711) Session Dosage Given in 2.99301380 Gy (test code = 5712) Plan ID (test code = Subcarina 5713) Fractions Treated to Date (test code = 5715) Prescribed Dose Per 2 Fraction in Gy (test code = 5716) Prescription Dose in cGy 6000 (test code = 5717) [facility] DAILY [id number] 20:08:59 Test Item Value Reference Range Interpretation [...] = 5710) Dosage Given to Date in 60.5865884 Gy (test code = 5711) Session Dosage Given in 2.02552261 Gy (test code = 5712) Plan ID (test code = Subcarina 5713) Fractions Treated to 30 of 30 Date (test code = 5715) Prescribed Dose Per 2 Fraction in Gy (test code = 5716) Prescription Dose in cGy 6000 (test code = 5717) [facility] DAILY [id number] 20:08:59 Test Item Value Reference Range Interpretation [...] = 5710) Dosage Given to Date in 60.5532664 Gy (test code = 5711) Session Dosage Given in 2.32057966 Gy (test code = 5712) Plan ID (test code = Subcarina 5713) Fractions Treated to 30 of 30 Date (test code = 5715) Prescribed Dose Per 2 Fraction in Gy (test code = 5716) Prescription Dose in cGy 6000 (test code = 5717) [facility] DAILY [id number] 17:27:33 Test Item Value Reference Range Interpretation [...] = 5710) Dosage Given to Date in 58.54194055 Gy (test code = 5711) Session Dosage Given in 2.32662375 Gy (test code = 5712) Plan ID (test code = Subcarina 5713) Fractions Treated to Date (test code = 5715) Prescribed Dose Per 2 Fraction in Gy (test code = 5716) Prescription Dose in cGy 6000 (test code = 5717) [facility] DAILY [id number] 17:27:33 Test Item Value Reference Range Interpretation [...] = 5710) Dosage Given to Date in 58.02615814 Gy (test code = 5711) Session Dosage Given in 2.03407658 Gy (test code = 5712) Plan ID (test code = Subcarina 5713) Fractions Treated to Date (test code = 5715) Prescribed Dose Per 2 Fraction in Gy (test code = 5716) Prescription Dose in cGy 6000 (test code = 5717) [facility] DAILY [id number] 17:27:33 Test Item Value Reference Range Interpretation [...] = 5710) Dosage Given to Date in 58.06624590 Gy (test code = 5711) Session Dosage Given in 2.01293721 Gy (test code = 5712) Plan ID (test code = Subcarina 5713) Fractions Treated to Date (test code = 5715) Prescribed Dose Per 2 Fraction in Gy (test code = 5716) Prescription Dose in cGy 6000 (test code = 5717) [facility] ONC DAILY [id number] 17:27:33 Test Item Value Reference Range Interpretation [...] = 5710) Dosage Given to Date in 58.56646595 Gy (test code = 5711) Session Dosage Given in 2.40923272 Gy (test code = 5712) Plan ID (test code = Subcarina 5713) Fractions Treated to Date (test code = 5715) Prescribed Dose Per 2 Fraction in Gy (test code = 5716) Prescription Dose in cGy 6000 (test code = 5717) [facility] ONC DAILY [id number] 18:20:49 Test Item Value Reference Range Interpretation [...] = 5710) Dosage Given to Date in 56.69447566 Gy (test code = 5711) Session Dosage Given in 2.12562245 Gy (test code = 5712) Plan ID (test code = Subcarina 5713) Fractions Treated to Date (test code = 5715) Prescribed Dose Per 2 Fraction in Gy (test code = 5716) Prescription Dose in cGy 6000 (test code = 5717) [facility] DAILY [id number] 18:20:49 Test Item Value Reference Range Interpretation [...] = 5710) Dosage Given to Date in 56.17629413 Gy (test code = 5711) Session Dosage Given in 2.35907725 Gy (test code = 5712) Plan ID (test code = Subcarina 5713) Fractions Treated to Date (test code = 5715) Prescribed Dose Per 2 Fraction in Gy (test code = 5716) Prescription Dose in cGy 6000 (test code = 5717) [facility] DAILY [id number] 18:20:49 Test Item Value Reference Range Interpretation [...] = 5710) Dosage Given to Date in 56.85549586 Gy (test code = 5711) Session Dosage Given in 2.95889460 Gy (test code = 5712) Plan ID (test code = Subcarina 5713) Fractions Treated to Date (test code = 5715) Prescribed Dose Per 2 Fraction in Gy (test code = 5716) Prescription Dose in cGy 6000 (test code = 5717) [facility] DAILY [id number] 18:20:49 Test Item Value Reference Range Interpretation [...] = 5710) Dosage Given to Date in 56.29413450 Gy (test code = 5711) Session Dosage Given in 2.44912786 Gy (test code = 5712) Plan ID (test code = Subcarina 5713) Fractions Treated to Date (test code = 5715) Prescribed Dose Per 2 Fraction in Gy (test code = 5716) Prescription Dose in cGy 6000 (test code = 5717) [facility] DAILY [id number] 18:51:26 Test Item Value Reference Range Interpretation [...] = 5710) Dosage Given to Date in 54.88057543 Gy (test code = 5711) Session Dosage Given in 2.40654766 Gy (test code = 5712) Plan ID (test code = Subcarina 5713) Fractions Treated to Date (test code = 5715) Prescribed Dose Per 2 Fraction in Gy (test code = 5716) Prescription Dose in cGy 6000 (test code = 5717) [facility] DAILY [id number] 18:51:26 Test Item Value Reference Range Interpretation [...] = 5710) Dosage Given to Date in 54.70651596 Gy (test code = 5711) Session Dosage Given in 2.23667443 Gy (test code = 5712) Plan ID (test code = Subcarina 5713) Fractions Treated to Date (test code = 5715) Prescribed Dose Per 2 Fraction in Gy (test code = 5716) Prescription Dose in cGy 6000 (test code = 5717) [facility] DAILY [id number] 18:51:26 Test Item Value Reference Range Interpretation [...] = 5710) Dosage Given to Date in 54.93410057 Gy (test code = 5711) Session Dosage Given in 2.32529344 Gy (test code = 5712) Plan ID (test code = Subcarina 5713) Fractions Treated to Date (test code = 5715) Prescribed Dose Per 2 Fraction in Gy (test code = 5716) Prescription Dose in cGy 6000 (test code = 5717) [facility] DAILY [id number] 18:51:26 Test Item Value Reference Range Interpretation [...] = 5710) Dosage Given to Date in 54.57105175 Gy (test code = 5711) Session Dosage Given in 2.29672288 Gy (test code = 5712) Plan ID (test code = Subcarina 5713) Fractions Treated to Date (test code = 5715) Prescribed Dose Per 2 Fraction in Gy (test code = 5716) Prescription Dose in cGy 6000 (test code = 5717) [facility] [id number] 18:43:10 Test Item Value Reference Range Interpretation [...] = 5710) Dosage Given to Date in 52.78079807 Gy (test code = 5711) Session Dosage Given in 2.00427045 Gy (test code = 5712) Plan ID (test code = Subcarina 5713) Fractions Treated to Date (test code = 5715) Prescribed Dose Per 2 Fraction in Gy (test code = 5716) Prescription Dose in cGy 6000 (test code = 5717) [facility] DAILY [id number] 18:43:10 Test Item Value Reference Range Interpretation [...] = 5710) Dosage Given to Date in 52.74098980 Gy (test code = 5711) Session Dosage Given in 2.12784797 Gy (test code = 5712) Plan ID (test code = Subcarina 5713) Fractions Treated to Date (test code = 5715) Prescribed Dose Per 2 Fraction in Gy (test code = 5716) Prescription Dose in cGy 6000 (test code = 5717) [facility] DAILY [id number] 18:43:10 Test Item Value Reference Range Interpretation [...] = 5710) Dosage Given to Date in 52.02430700 Gy (test code = 5711) Session Dosage Given in 2.21505910 Gy (test code = 5712) Plan ID (test code = Subcarina 5713) Fractions Treated to Date (test code = 5715) Prescribed Dose Per 2 Fraction in Gy (test code = 5716) Prescription Dose in cGy 6000 (test code = 5717) [facility] DAILY [id number] 18:43:10 Test Item Value Reference Range Interpretation [...] = 5710) Dosage Given to Date in 52.13606971 Gy (test code = 5711) Session Dosage Given in 2.85568165 Gy (test code = 5712) Plan ID (test code = Subcarina 5713) Fractions Treated to Date (test code = 5715) Prescribed Dose Per 2 Fraction in Gy (test code = 5716) Prescription Dose in cGy 6000 (test code = 5717) [facility] DAILY [id number] 20:31:22 Test Item Value Reference Range Interpretation [...] = 5710) Dosage Given to Date in 50.02489371 Gy (test code = 5711) Session Dosage Given in 2.18112192 Gy (test code = 5712) Plan ID (test code = Subcarina 5713) Fractions Treated to Date (test code = 5715) Prescribed Dose Per 2 Fraction in Gy (test code = 5716) Prescription Dose in cGy 6000 (test code = 5717) [facility] ONC DAILY [id number] 20:31:22 Test Item Value Reference Range Interpretation [...] = 5710) Dosage Given to Date in 50.61023167 Gy (test code = 5711) Session Dosage Given in 2.51396808 Gy (test code = 5712) Plan ID (test code = Subcarina 5713) Fractions Treated to Date (test code = 5715) Prescribed Dose Per 2 Fraction in Gy (test code = 5716) Prescription Dose in cGy 6000 (test code = 5717) [facility] DAILY [id number] 20:31:22 Test Item Value Reference Range Interpretation [...] = 5710) Dosage Given to Date in 50.43020169 Gy (test code = 5711) Session Dosage Given in 2.51237120 Gy (test code = 5712) Plan ID (test code = Subcarina 5713) Fractions Treated to Date (test code = 5715) Prescribed Dose Per 2 Fraction in Gy (test code = 5716) Prescription Dose in cGy 6000 (test code = 5717) [facility] ONC DAILY [id number] 20:31:22 Test Item Value Reference Range Interpretation [...] = 5710) Dosage Given to Date in 50.57384441 Gy (test code = 5711) Session Dosage Given in 2.07752706 Gy (test code = 5712) Plan ID (test code = Subcarina 5713) Fractions Treated to Date (test code = 5715) Prescribed Dose Per 2 Fraction in Gy (test code = 5716) Prescription Dose in cGy 6000 (test code = 5717) [facility]C DAILY [id number] 17:08:15 Test Item Value Reference Range Interpretation [...] = 5710) Dosage Given to Date in 48.37992101 Gy (test code = 5711) Session Dosage Given in 2.20853016 Gy (test code = 5712) Plan ID (test code = Subcarina 5713) Fractions Treated to Date (test code = 5715) Prescribed Dose Per 2 Fraction in Gy (test code = 5716) Prescription Dose in cGy 6000 (test code = 5717) [facility]C DAILY [id number] 17:08:15 Test Item Value Reference Range Interpretation [...] = 5710) Dosage Given to Date in 48.40858249 Gy (test code = 5711) Session Dosage Given in 2.71658476 Gy (test code = 5712) Plan ID (test code = Subcarina 5713) Fractions Treated to Date (test code = 5715) Prescribed Dose Per 2 Fraction in Gy (test code = 5716) Prescription Dose in cGy 6000 (test code = 5717) [facility] DAILY [id number] 17:08:15 Test Item Value Reference Range Interpretation [...] = 5710) Dosage Given to Date in 48.73094457 Gy (test code = 5711) Session Dosage Given in 2.42882887 Gy (test code = 5712) Plan ID (test code = Subcarina 5713) Fractions Treated to Date (test code = 5715) Prescribed Dose Per 2 Fraction in Gy (test code = 5716) Prescription Dose in cGy 6000 (test code = 5717) [facility] DAILY [id number] 17:08:15 Test Item Value Reference Range Interpretation [...] = 5710) Dosage Given to Date in 48.92146162 Gy (test code = 5711) Session Dosage Given in 2.21286834 Gy (test code = 5712) Plan ID (test code = Subcarina 5713) Fractions Treated to Date (test code = 5715) Prescribed Dose Per 2 Fraction in Gy (test code = 5716) Prescription Dose in cGy 6000 (test code = 5717) [facility] DAILY [id number] 20:03:00 Test Item Value Reference Range Interpretation [...] = 5710) Dosage Given to Date in 46.88849473 Gy (test code = 5711) Session Dosage Given in 2.83813998 Gy (test code = 5712) Plan ID (test code = Subcarina 5713) Fractions Treated to Date (test code = 5715) Prescribed Dose Per 2 Fraction in Gy (test code = 5716) Prescription Dose in cGy 6000 (test code = 5717) [facility] DAILY [id number] 20:03:00 Test Item Value Reference Range Interpretation [...] = 5710) Dosage Given to Date in 46.40684826 Gy (test code = 5711) Session Dosage Given in 2.44150038 Gy (test code = 5712) Plan ID (test code = Subcarina 5713) Fractions Treated to Date (test code = 5715) Prescribed Dose Per 2 Fraction in Gy (test code = 5716) Prescription Dose in cGy 6000 (test code = 5717) [facility] DAILY [id number] 20:03:00 Test Item Value Reference Range Interpretation [...] = 5710) Dosage Given to Date in 46.59853433 Gy (test code = 5711) Session Dosage Given in 2.85831337 Gy (test code = 5712) Plan ID (test code = Subcarina 5713) Fractions Treated to Date (test code = 5715) Prescribed Dose Per 2 Fraction in Gy (test code = 5716) Prescription Dose in cGy 6000 (test code = 5717) [facility] DAILY [id number] 20:03:00 Test Item Value Reference Range Interpretation [...] = 5710) Dosage Given to Date in 46.37927892 Gy (test code = 5711) Session Dosage Given in 2.07144652 Gy (test code = 5712) Plan ID (test code = Subcarina 5713) Fractions Treated to Date (test code = 5715) Prescribed Dose Per 2 Fraction in Gy (test code = 5716) Prescription Dose in cGy 6000 (test code = 5717) [facility] DAILY [id number] 18:57:31 Test Item Value Reference Range Interpretation [...] = 5710) Dosage Given to Date in 44.55234701 Gy (test code = 5711) Session Dosage Given in 2.59518151 Gy (test code = 5712) Plan ID (test code = Subcarina 5713) Fractions Treated to Date (test code = 5715) Prescribed Dose Per 2 Fraction in Gy (test code = 5716) Prescription Dose in cGy 6000 (test code = 5717) [facility] DAILY [id number] 18:57:31 Test Item Value Reference Range Interpretation [...] = 5710) Dosage Given to Date in 44.60107206 Gy (test code = 5711) Session Dosage Given in 2.84620245 Gy (test code = 5712) Plan ID (test code = Subcarina 5713) Fractions Treated to Date (test code = 5715) Prescribed Dose Per 2 Fraction in Gy (test code = 5716) Prescription Dose in cGy 6000 (test code = 5717) [facility] DAILY [id number] 18:57:31 Test Item Value Reference Range Interpretation [...] = 5710) Dosage Given to Date in 44.50369708 Gy (test code = 5711) Session Dosage Given in 2.73199285 Gy (test code = 5712) Plan ID (test code = Subcarina 5713) Fractions Treated to Date (test code = 5715) Prescribed Dose Per 2 Fraction in Gy (test code = 5716) Prescription Dose in cGy 6000 (test code = 5717) [facility] DAILY [id number] 18:57:31 Test Item Value Reference Range Interpretation [...] = 5710) Dosage Given to Date in 44.11319424 Gy (test code = 5711) Session Dosage Given in 2.01529906 Gy (test code = 5712) Plan ID (test code = Subcarina 5713) Fractions Treated to Date (test code = 5715) Prescribed Dose Per 2 Fraction in Gy (test code = 5716) Prescription Dose in cGy 6000 (test code = 5717) [facility] DAILY [id number] 19:29:30 Test Item Value Reference Range Interpretation [...] = 5710) Dosage Given to Date in 42.67602500 Gy (test code = 5711) Session Dosage Given in 2.03766464 Gy (test code = 5712) Plan ID (test code = Subcarina 5713) Fractions Treated to Date (test code = 5715) Prescribed Dose Per 2 Fraction in Gy (test code = 5716) Prescription Dose in cGy 6000 (test code = 5717) [facility] DAILY [id number] 19:29:30 Test Item Value Reference Range Interpretation [...] = 5710) Dosage Given to Date in 42.43315763 Gy (test code = 5711) Session Dosage Given in 2.88500923 Gy (test code = 5712) Plan ID (test code = Subcarina 5713) Fractions Treated to Date (test code = 5715) Prescribed Dose Per 2 Fraction in Gy (test code = 5716) Prescription Dose in cGy 6000 (test code = 5717) [facility] DAILY [id number] 19:29:30 Test Item Value Reference Range Interpretation [...] = 5710) Dosage Given to Date in 42.27669174 Gy (test code = 5711) Session Dosage Given in 2.02661552 Gy (test code = 5712) Plan ID (test code = Subcarina 5713) Fractions Treated to 30 Date (test code = 5715) Prescribed Dose Per 2 Fraction in Gy (test code = 5716) Prescription Dose in cGy 6000 (test code = 5717) [facility] DAILY [id number] 19:29:30 Test Item Value Reference Range Interpretation [...] = 5710) Dosage Given to Date in 42.49795134 Gy (test code = 5711) Session Dosage Given in 2.77606685 Gy (test code = 5712) Plan ID (test code = Subcarina 5713) Fractions Treated to Date (test code = 5715) Prescribed Dose Per 2 Fraction in Gy (test code = 5716) Prescription Dose in cGy 6000 (test code = 5717) [facility] DAILY [id number] 18:24:12 Test Item Value Reference Range Interpretation Comments Course ID (test code = C3 5706) Course Start Date (test 2022-01-18 @16:41 code = 5707) Treatment Elapsed Days (test code = 5709) Course Intent (test code Curative = 5686) Treatment Dates (test First Treatment Date: code = 5685) 2022-02-05 @16:32Last Treatment Date: 2022-03-04 @13:22 Reference Point ID (test Subcarina code = 5710) Dosage Given to Date in 40.6049506 Gy (test code = 5711) Session Dosage Given in 2.99785947 Gy (test code = 5712) Plan ID (test code = Subcarina 5713) Fractions Treated to Date (test code = 5715) Prescribed Dose Per 2 Fraction in Gy (test code = 5716) Prescription Dose in cGy 6000 (test code = 5717) [facility] DAILY [id number] 18:24:12 Test Item Value Reference Range Interpretation [...] = 5710) Dosage Given to Date in 40.0739341 Gy (test code = 5711) Session Dosage Given in 2.33656073 Gy (test code = 5712) Plan ID (test code = Subcarina 5713) Fractions Treated to Date (test code = 5715) Prescribed Dose Per 2 Fraction in Gy (test code = 5716) Prescription Dose in cGy 6000 (test code = 5717) [facility] DAILY [id number] 18:24:12 Test Item Value Reference Range Interpretation [...] = 5710) Dosage Given to Date in 40.9104110 Gy (test code = 5711) Session Dosage Given in 2.14139670 Gy (test code = 5712) Plan ID (test code = Subcarina 5713) Fractions Treated to Date (test code = 5715) Prescribed Dose Per 2 Fraction in Gy (test code = 5716) Prescription Dose in cGy 6000 (test code = 5717) [facility] DAILY [id number] 18:24:12 Test Item Value Reference Range Interpretation Comments Course ID (test code = C3 5706) Course Start Date (test 2022-01-18 @16:41 code = 5707) Treatment Elapsed Days (test code = 5709) Course Intent (test code Curative = 5686) Treatment Dates (test First Treatment Date: code = 5685) 2022-02-05 @16:32Last Treatment Date: 2022-03-04 @13:22 Reference Point ID (test Subcarina code = 5710) Dosage Given to Date in 40.8755361 Gy (test code = 5711) Session Dosage Given in 2.74829725 Gy (test code = 5712) Plan ID (test code = Subcarina 5713) Fractions Treated to Date (test code = 5715) Prescribed Dose Per 2 Fraction in Gy (test code = 5716) Prescription Dose in cGy 6000 (test code = 5717) [facility] DAILY [id number] 19:46:04 Test Item Value Reference Range Interpretation [...] = 5710) Dosage Given to Date in 38.31877521 Gy (test code = 5711) Session Dosage Given in 2.27435474 Gy (test code = 5712) Plan ID (test code = Subcarina 5713) Fractions Treated to Date (test code = 5715) Prescribed Dose Per 2 Fraction in Gy (test code = 5716) Prescription Dose in cGy 6000 (test code = 5717) [facility] DAILY [id number] 19:46:04 Test Item Value Reference Range Interpretation [...] = 5710) Dosage Given to Date in 38.38698254 Gy (test code = 5711) Session Dosage Given in 2.63771934 Gy (test code = 5712) Plan ID (test code = Subcarina 5713) Fractions Treated to Date (test code = 5715) Prescribed Dose Per 2 Fraction in Gy (test code = 5716) Prescription Dose in cGy 6000 (test code = 5717) [facility] DAILY [id number] 19:46:04 Test Item Value Reference Range Interpretation [...] = 5710) Dosage Given to Date in 38.72948003 Gy (test code = 5711) Session Dosage Given in 2.23355987 Gy (test code = 5712) Plan ID (test code = Subcarina 5713) Fractions Treated to Date (test code = 5715) Prescribed Dose Per 2 Fraction in Gy (test code = 5716) Prescription Dose in cGy 6000 (test code = 5717) [facility] DAILY [id number] 19:46:04 Test Item Value Reference Range Interpretation [...] = 5710) Dosage Given to Date in 38.48085824 Gy (test code = 5711) Session Dosage Given in 2.74254244 Gy (test code = 5712) Plan ID (test code = Subcarina 5713) Fractions Treated to Date (test code = 5715) Prescribed Dose Per 2 Fraction in Gy (test code = 5716) Prescription Dose in cGy 6000 (test code = 5717) [facility] DAILY [id number] 20:13:22 Test Item Value Reference Range Interpretation [...] = 5710) Dosage Given to Date in 36.73901344 Gy (test code = 5711) Session Dosage Given in 2.15015175 Gy (test code = 5712) Plan ID (test code = Subcarina 5713) Fractions Treated to Date (test code = 5715) Prescribed Dose Per 2 Fraction in Gy (test code = 5716) Prescription Dose in cGy 6000 (test code = 5717) [facility] DAILY [id number] 20:13:22 Test Item Value Reference Range Interpretation [...] = 5710) Dosage Given to Date in 36.10014921 Gy (test code = 5711) Session Dosage Given in 2.44641116 Gy (test code = 5712) Plan ID (test code = Subcarina 5713) Fractions Treated to Date (test code = 5715) Prescribed Dose Per 2 Fraction in Gy (test code = 5716) Prescription Dose in cGy 6000 (test code = 5717) [facility] DAILY [id number] 20:13:22 Test Item Value Reference Range Interpretation [...] = 5710) Dosage Given to Date in 36.70871917 Gy (test code = 5711) Session Dosage Given in 2.66439153 Gy (test code = 5712) Plan ID (test code = Subcarina 5713) Fractions Treated to Date (test code = 5715) Prescribed Dose Per 2 Fraction in Gy (test code = 5716) Prescription Dose in cGy 6000 (test code = 5717) [facility] DAILY [id number] 20:13:22 Test Item Value Reference Range Interpretation [...] = 5710) Dosage Given to Date in 36.81222116 Gy (test code = 5711) Session Dosage Given in 2.39424643 Gy (test code = 5712) Plan ID (test code = Subcarina 5713) Fractions Treated to Date (test code = 5715) Prescribed Dose Per 2 Fraction in Gy (test code = 5716) Prescription Dose in cGy 6000 (test code = 5717) [facility] DAILY [id number] 20:28:42 Test Item Value Reference Range Interpretation [...] = 5710) Dosage Given to Date in 34.43462465 Gy (test code = 5711) Session Dosage Given in 2.89696074 Gy (test code = 5712) Plan ID (test code = Subcarina 5713) Fractions Treated to 30 Date (test code = 5715) Prescribed Dose Per 2 Fraction in Gy (test code = 5716) Prescription Dose in cGy 6000 (test code = 5717) [facility] DA[facility] [id number] 20:28:42 Test Item Value Reference Range Interpretation [...] = 5710) Dosage Given to Date in 34.15215965 Gy (test code = 5711) Session Dosage Given in 2.33120107 Gy (test code = 5712) Plan ID (test code = Subcarina 5713) Fractions Treated to Date (test code = 5715) Prescribed Dose Per 2 Fraction in Gy (test code = 5716) Prescription Dose in cGy 6000 (test code = 5717) [facility] DAILY [id number] 20:28:42 Test Item Value Reference Range Interpretation [...] = 5710) Dosage Given to Date in 34.77438909 Gy (test code = 5711) Session Dosage Given in 2.85901402 Gy (test code = 5712) Plan ID (test code = Subcarina 5713) Fractions Treated to Date (test code = 5715) Prescribed Dose Per 2 Fraction in Gy (test code = 5716) Prescription Dose in cGy 6000 (test code = 5717) [facility] DAILY [id number] 20:28:42 Test Item Value Reference Range Interpretation [...] = 5710) Dosage Given to Date in 34.19623562 Gy (test code = 5711) Session Dosage Given in 2.59057813 Gy (test code = 5712) Plan ID (test code = Subcarina 5713) Fractions Treated to Date (test code = 5715) Prescribed Dose Per 2 Fraction in Gy (test code = 5716) Prescription Dose in cGy 6000 (test code = 5717) [facility] DAILY [id number] 20:36:08 Test Item Value Reference Range Interpretation [...] = 5710) Dosage Given to Date in 32.06180912 Gy (test code = 5711) Session Dosage Given in 2.85003075 Gy (test code = 5712) Plan ID (test code = Subcarina 5713) Fractions Treated to Date (test code = 5715) Prescribed Dose Per 2 Fraction in Gy (test code = 5716) Prescription Dose in cGy 6000 (test code = 5717) [facility] DAILY [id number] 20:36:08 Test Item Value Reference Range Interpretation [...] = 5710) Dosage Given to Date in 32.11326437 Gy (test code = 5711) Session Dosage Given in 2.07396216 Gy (test code = 5712) Plan ID (test code = Subcarina 5713) Fractions Treated to Date (test code = 5715) Prescribed Dose Per 2 Fraction in Gy (test code = 5716) Prescription Dose in cGy 6000 (test code = 5717) [facility] DA[facility] [id number] 20:36:08 Test Item Value Reference Range Interpretation [...] = 5710) Dosage Given to Date in 32.18669243 Gy (test code = 5711) Session Dosage Given in 2.25997217 Gy (test code = 5712) Plan ID (test code = Subcarina 5713) Fractions Treated to Date (test code = 5715) Prescribed Dose Per 2 Fraction in Gy (test code = 5716) Prescription Dose in cGy 6000 (test code = 5717) [facility] DA[facility] [id number] 20:36:08 Test Item Value Reference Range Interpretation [...] = 5710) Dosage Given to Date in 32.23983413 Gy (test code = 5711) Session Dosage Given in 2.18797313 Gy (test code = 5712) Plan ID (test code = Subcarina 5713) Fractions Treated to Date (test code = 5715) Prescribed Dose Per 2 Fraction in Gy (test code = 5716) Prescription Dose in cGy 6000 (test code = 5717) [facility] DA[facility] [id number] 19:36:27 Test Item Value Reference Range Interpretation [...] = 5710) Dosage Given to Date in 30.23148296 Gy (test code = 5711) Session Dosage Given in 2.85168559 Gy (test code = 5712) Plan ID (test code = Subcarina 5713) Fractions Treated to 30 Date (test code = 5715) Prescribed Dose Per 2 Fraction in Gy (test code = 5716) Prescription Dose in cGy 6000 (test code = 5717) [facility] DAILY [id number] 19:36:27 Test Item Value Reference Range Interpretation [...] = 5710) Dosage Given to Date in 30.39147302 Gy (test code = 5711) Session Dosage Given in 2.34059104 Gy (test code = 5712) Plan ID (test code = Subcarina 5713) Fractions Treated to 30 Date (test code = 5715) Prescribed Dose Per 2 Fraction in Gy (test code = 5716) Prescription Dose in cGy 6000 (test code = 5717) [facility] DAILY [id number] 19:36:27 Test Item Value Reference Range Interpretation [...] = 5710) Dosage Given to Date in 30.74796112 Gy (test code = 5711) Session Dosage Given in 2.68326368 Gy (test code = 5712) Plan ID (test code = Subcarina 5713) Fractions Treated to Date (test code = 5715) Prescribed Dose Per 2 Fraction in Gy (test code = 5716) Prescription Dose in cGy 6000 (test code = 5717) [facility] DAILY [id number] 19:36:27 Test Item Value Reference Range Interpretation [...] = 5710) Dosage Given to Date in 30.75759849 Gy (test code = 5711) Session Dosage Given in 2.95770071 Gy (test code = 5712) Plan ID (test code = Subcarina 5713) Fractions Treated to Date (test code = 5715) Prescribed Dose Per 2 Fraction in Gy (test code = 5716) Prescription Dose in cGy 6000 (test code = 5717) [facility] DAILY [id number] 20:26:13 Test Item Value Reference Range Interpretation [...] = 5710) Dosage Given to Date in 28.52350142 Gy (test code = 5711) Session Dosage Given in 2.06044096 Gy (test code = 5712) Plan ID (test code = Subcarina 5713) Fractions Treated to Date (test code = 5715) Prescribed Dose Per 2 Fraction in Gy (test code = 5716) Prescription Dose in cGy 6000 (test code = 5717) [facility] DAILY [id number] 20:26:13 Test Item Value Reference Range Interpretation [...] = 5710) Dosage Given to Date in 28.58845251 Gy (test code = 5711) Session Dosage Given in 2.00643128 Gy (test code = 5712) Plan ID (test code = Subcarina 5713) Fractions Treated to Date (test code = 5715) Prescribed Dose Per 2 Fraction in Gy (test code = 5716) Prescription Dose in cGy 6000 (test code = 5717) [facility] DAILY [id number] 20:26:13 Test Item Value Reference Range Interpretation [...] = 5710) Dosage Given to Date in 28.83106611 Gy (test code = 5711) Session Dosage Given in 2.25735622 Gy (test code = 5712) Plan ID (test code = Subcarina 5713) Fractions Treated to Date (test code = 5715) Prescribed Dose Per 2 Fraction in Gy (test code = 5716) Prescription Dose in cGy 6000 (test code = 5717) [facility] DAILY [id number] 20:26:13 Test Item Value Reference Range Interpretation [...] = 5710) Dosage Given to Date in 28.36124679 Gy (test code = 5711) Session Dosage Given in 2.15393281 Gy (test code = 5712) Plan ID (test code = Subcarina 5713) Fractions Treated to Date (test code = 5715) Prescribed Dose Per 2 Fraction in Gy (test code = 5716) Prescription Dose in cGy 6000 (test code = 5717) [facility] DAILY [id number] 20:31:32 Test Item Value Reference Range Interpretation [...] = 5710) Dosage Given to Date in 26.69495416 Gy (test code = 5711) Session Dosage Given in 2.29505316 Gy (test code = 5712) Plan ID (test code = Subcarina 5713) Fractions Treated to Date (test code = 5715) Prescribed Dose Per 2 Fraction in Gy (test code = 5716) Prescription Dose in cGy 6000 (test code = 5717) [facility] DA[facility] [id number] 20:31:32 Test Item Value Reference Range Interpretation [...] = 5710) Dosage Given to Date in 26.95893860 Gy (test code = 5711) Session Dosage Given in 2.33115637 Gy (test code = 5712) Plan ID (test code = Subcarina 5713) Fractions Treated to Date (test code = 5715) Prescribed Dose Per 2 Fraction in Gy (test code = 5716) Prescription Dose in cGy 6000 (test code = 5717) [facility] DAILY [id number] 20:31:32 Test Item Value Reference Range Interpretation [...] = 5710) Dosage Given to Date in 26.78312907 Gy (test code = 5711) Session Dosage Given in 2.37945196 Gy (test code = 5712) Plan ID (test code = Subcarina 5713) Fractions Treated to Date (test code = 5715) Prescribed Dose Per 2 Fraction in Gy (test code = 5716) Prescription Dose in cGy 6000 (test code = 5717) [facility] DAILY [id number] 20:31:32 Test Item Value Reference Range Interpretation [...] = 5710) Dosage Given to Date in 26.71726356 Gy (test code = 5711) Session Dosage Given in 2.36318631 Gy (test code = 5712) Plan ID (test code = Subcarina 5713) Fractions Treated to Date (test code = 5715) Prescribed Dose Per 2 Fraction in Gy (test code = 5716) Prescription Dose in cGy 6000 (test code = 5717) [facility] DA[facility] [id number] 20:27:20 Test Item Value Reference Range Interpretation [...] = 5710) Dosage Given to Date in 24.20244353 Gy (test code = 5711) Session Dosage Given in 2.72969909 Gy (test code = 5712) Plan ID (test code = Subcarina 5713) Fractions Treated to Date (test code = 5715) Prescribed Dose Per 2 Fraction in Gy (test code = 5716) Prescription Dose in cGy 6000 (test code = 5717) [facility] DAILY [id number] 20:27:20 Test Item Value Reference Range Interpretation [...] = 5710) Dosage Given to Date in 24.71741174 Gy (test code = 5711) Session Dosage Given in 2.57282736 Gy (test code = 5712) Plan ID (test code = Subcarina 5713) Fractions Treated to Date (test code = 5715) Prescribed Dose Per 2 Fraction in Gy (test code = 5716) Prescription Dose in cGy 6000 (test code = 5717) [facility] DAILY [id number] 20:27:20 Test Item Value Reference Range Interpretation [...] = 5710) Dosage Given to Date in 24.57533542 Gy (test code = 5711) Session Dosage Given in 2.87838397 Gy (test code = 5712) Plan ID (test code = Subcarina 5713) Fractions Treated to Date (test code = 5715) Prescribed Dose Per 2 Fraction in Gy (test code = 5716) Prescription Dose in cGy 6000 (test code = 5717) [facility] DAILY [id number] 20:27:20 Test Item Value Reference Range Interpretation [...] = 5710) Dosage Given to Date in 24.09206133 Gy (test code = 5711) Session Dosage Given in 2.71034168 Gy (test code = 5712) Plan ID (test code = Subcarina 5713) Fractions Treated to Date (test code = 5715) Prescribed Dose Per 2 Fraction in Gy (test code = 5716) Prescription Dose in cGy 6000 (test code = 5717) [facility] DAILY [id number] 22:25:50 Test Item Value Reference Range Interpretation [...] = 5710) Dosage Given to Date in 22.17860593 Gy (test code = 5711) Session Dosage Given in 2.60252131 Gy (test code = 5712) Plan ID (test code = Subcarina 5713) Fractions Treated to Date (test code = 5715) Prescribed Dose Per 2 Fraction in Gy (test code = 5716) Prescription Dose in cGy 6000 (test code = 5717) [facility] DAILY [id number] 22:25:50 Test Item Value Reference Range Interpretation [...] = 5710) Dosage Given to Date in 22.54663013 Gy (test code = 5711) Session Dosage Given in 2.08093884 Gy (test code = 5712) Plan ID (test code = Subcarina 5713) Fractions Treated to Date (test code = 5715) Prescribed Dose Per 2 Fraction in Gy (test code = 5716) Prescription Dose in cGy 6000 (test code = 5717) [facility] DAILY [id number] 22:25:50 Test Item Value Reference Range Interpretation [...] = 5710) Dosage Given to Date in 22.67658830 Gy (test code = 5711) Session Dosage Given in 2.03221981 Gy (test code = 5712) Plan ID (test code = Subcarina 5713) Fractions Treated to Date (test code = 5715) Prescribed Dose Per 2 Fraction in Gy (test code = 5716) Prescription Dose in cGy 6000 (test code = 5717) [facility] DAILY [id number] 22:25:50 Test Item Value Reference Range Interpretation [...] = 5710) Dosage Given to Date in 22.25729601 Gy (test code = 5711) Session Dosage Given in 2.94706165 Gy (test code = 5712) Plan ID (test code = Subcarina 5713) Fractions Treated to Date (test code = 5715) Prescribed Dose Per 2 Fraction in Gy (test code = 5716) Prescription Dose in cGy 6000 (test code = 5717) [facility] DAILY [id number] 20:27:27 Test Item Value Reference Range Interpretation [...] = 5710) Dosage Given to Date in 20.3062373 Gy (test code = 5711) Session Dosage Given in 2.95067738 Gy (test code = 5712) Plan ID (test code = Subcarina 5713) Fractions Treated to Date (test code = 5715) Prescribed Dose Per 2 Fraction in Gy (test code = 5716) Prescription Dose in cGy 6000 (test code = 5717) [facility] DAILY [id number] 20:27:27 Test Item Value Reference Range Interpretation [...] = 5710) Dosage Given to Date in 20.8791948 Gy (test code = 5711) Session Dosage Given in 2.65646570 Gy (test code = 5712) Plan ID (test code = Subcarina 5713) Fractions Treated to Date (test code = 5715) Prescribed Dose Per 2 Fraction in Gy (test code = 5716) Prescription Dose in cGy 6000 (test code = 5717) [facility] DAILY [id number] 20:27:27 Test Item Value Reference Range Interpretation Comments Course ID (test code = C3 5706) Course Start Date (test 2022-01-18 @16:41 code = 5707) Treatment Elapsed Days 13 (test code = 5709) Course Intent (test code Curative = 5686) Treatment Dates (test First Treatment Date: code = 568) 2022-02-05 @16:32Last Treatment Date: 2022-02-18 @15:25 Reference Point ID (test Subcarina code = 5710) Dosage Given to Date in 20.8719155 Gy (test code = 5711) Session Dosage Given in 2.08381598 Gy (test code = 5712) Plan ID (test code = Subcarina 5713) Fractions Treated to Date (test code = 5715) Prescribed Dose Per 2 Fraction in Gy (test code = 5716) Prescription Dose in cGy 6000 (test code = 5717) [facility] DAILY [id number] 20:27:27 Test Item Value Reference Range Interpretation [...] = 5710) Dosage Given to Date in 20.1460112 Gy (test code = 5711) Session Dosage Given in 2.80512276 Gy (test code = 5712) Plan ID (test code = Subcarina 5713) Fractions Treated to Date (test code = 5715) Prescribed Dose Per 2 Fraction in Gy (test code = 5716) Prescription Dose in cGy 6000 (test code = 5717) [facility] DAILY [id number] 20:09:22 Test Item Value Reference Range Interpretation [...] = 5710) Dosage Given to Date in 18.10238025 Gy (test code = 5711) Session Dosage Given in 2.04101334 Gy (test code = 5712) Plan ID (test code = Subcarina 5713) Fractions Treated to Date (test code = 5715) Prescribed Dose Per 2 Fraction in Gy (test code = 5716) Prescription Dose in cGy 6000 (test code = 5717) [facility] DAILY [id number] 20:09:22 Test Item Value Reference Range Interpretation [...] = 5710) Dosage Given to Date in 18.69712008 Gy (test code = 5711) Session Dosage Given in 2.31668339 Gy (test code = 5712) Plan ID (test code = Subcarina 5713) Fractions Treated to Date (test code = 5715) Prescribed Dose Per 2 Fraction in Gy (test code = 5716) Prescription Dose in cGy 6000 (test code = 5717) [facility] DAILY [id number] 20:09:22 Test Item Value Reference Range Interpretation [...] = 5710) Dosage Given to Date in 18.42441755 Gy (test code = 5711) Session Dosage Given in 2.70119150 Gy (test code = 5712) Plan ID (test code = Subcarina 5713) Fractions Treated to Date (test code = 5715) Prescribed Dose Per 2 Fraction in Gy (test code = 5716) Prescription Dose in cGy 6000 (test code = 5717) [facility] DAILY [id number] 20:09:22 Test Item Value Reference Range Interpretation [...] = 5710) Dosage Given to Date in 18.05708498 Gy (test code = 5711) Session Dosage Given in 2.03770339 Gy (test code = 5712) Plan ID (test code = Subcarina 5713) Fractions Treated to Date (test code = 5715) Prescribed Dose Per 2 Fraction in Gy (test code = 5716) Prescription Dose in cGy 6000 (test code = 5717) [facility] DAILY [id number] 20:31:50 Test Item Value Reference Range Interpretation [...] = 5710) Dosage Given to Date in 16.21123378 Gy (test code = 5711) Session Dosage Given in 2.16364243 Gy (test code = 5712) Plan ID (test code = Subcarina 5713) Fractions Treated to 30 Date (test code = 5715) Prescribed Dose Per 2 Fraction in Gy (test code = 5716) Prescription Dose in cGy 6000 (test code = 5717) [facility] DAILY [id number] 20:31:50 Test Item Value Reference Range Interpretation [...] = 5710) Dosage Given to Date in 16.62633774 Gy (test code = 5711) Session Dosage Given in 2.24912126 Gy (test code = 5712) Plan ID (test code = Subcarina 5713) Fractions Treated to 30 Date (test code = 5715) Prescribed Dose Per 2 Fraction in Gy (test code = 5716) Prescription Dose in cGy 6000 (test code = 5717) [facility] DAILY [id number] 20:31:50 Test Item Value Reference Range Interpretation [...] = 5710) Dosage Given to Date in 16.46870322 Gy (test code = 5711) Session Dosage Given in 2.35590110 Gy (test code = 5712) Plan ID (test code = Subcarina 5713) Fractions Treated to Date (test code = 5715) Prescribed Dose Per 2 Fraction in Gy (test code = 5716) Prescription Dose in cGy 6000 (test code = 5717) [facility] DAILY [id number] 20:31:50 Test Item Value Reference Range Interpretation [...] = 5710) Dosage Given to Date in 16.51036590 Gy (test code = 5711) Session Dosage Given in 2.95718831 Gy (test code = 5712) Plan ID (test code = Subcarina 5713) Fractions Treated to Date (test code = 5715) Prescribed Dose Per 2 Fraction in Gy (test code = 5716) Prescription Dose in cGy 6000 (test code = 5717) [facility] DAILY [id number] 18:38:55 Test Item Value Reference Range Interpretation [...] = 5710) Dosage Given to Date in 14.57765581 Gy (test code = 5711) Session Dosage Given in 2.18130470 Gy (test code = 5712) Plan ID (test code = Subcarina 5713) Fractions Treated to Date (test code = 5715) Prescribed Dose Per 2 Fraction in Gy (test code = 5716) Prescription Dose in cGy 6000 (test code = 5717) [facility] DAILY [id number] 18:38:55 Test Item Value Reference Range Interpretation [...] = 5710) Dosage Given to Date in 14.72718544 Gy (test code = 5711) Session Dosage Given in 2.44763230 Gy (test code = 5712) Plan ID (test code = Subcarina 5713) Fractions Treated to Date (test code = 5715) Prescribed Dose Per 2 Fraction in Gy (test code = 5716) Prescription Dose in cGy 6000 (test code = 5717) [facility] DAILY [id number] 18:38:55 Test Item Value Reference Range Interpretation [...] = 5710) Dosage Given to Date in 14.69105375 Gy (test code = 5711) Session Dosage Given in 2.26031635 Gy (test code = 5712) Plan ID (test code = Subcarina 5713) Fractions Treated to Date (test code = 5715) Prescribed Dose Per 2 Fraction in Gy (test code = 5716) Prescription Dose in cGy 6000 (test code = 5717) [facility] DAILY [id number] 18:38:55 Test Item Value Reference Range Interpretation [...] = 5710) Dosage Given to Date in 14.03324368 Gy (test code = 5711) Session Dosage Given in 2.52981751 Gy (test code = 5712) Plan ID (test code = Subcarina 5713) Fractions Treated to Date (test code = 5715) Prescribed Dose Per 2 Fraction in Gy (test code = 5716) Prescription Dose in cGy 6000 (test code = 5717) [facility] DAILY [id number] 20:16:34 Test Item Value Reference Range Interpretation [...] = 5710) Dosage Given to Date in 12.71692570 Gy (test code = 5711) Session Dosage Given in 2.41033622 Gy (test code = 5712) Plan ID (test code = Subcarina 5713) Fractions Treated to Date (test code = 5715) Prescribed Dose Per 2 Fraction in Gy (test code = 5716) Prescription Dose in cGy 6000 (test code = 5717) [facility] DAILY [id number] 20:16:34 Test Item Value Reference Range Interpretation [...] = 5710) Dosage Given to Date in 12.07345066 Gy (test code = 5711) Session Dosage Given in 2.95377066 Gy (test code = 5712) Plan ID (test code = Subcarina 5713) Fractions Treated to Date (test code = 5715) Prescribed Dose Per 2 Fraction in Gy (test code = 5716) Prescription Dose in cGy 6000 (test code = 5717) [facility] DAILY [id number] 20:16:34 Test Item Value Reference Range Interpretation [...] = 5710) Dosage Given to Date in 12.63558319 Gy (test code = 5711) Session Dosage Given in 2.19492854 Gy (test code = 5712) Plan ID (test code = Subcarina 5713) Fractions Treated to Date (test code = 5715) Prescribed Dose Per 2 Fraction in Gy (test code = 5716) Prescription Dose in cGy 6000 (test code = 5717) [facility] DAILY [id number] 20:16:34 Test Item Value Reference Range Interpretation [...] = 5710) Dosage Given to Date in 12.86821187 Gy (test code = 5711) Session Dosage Given in 2.92706247 Gy (test code = 5712) Plan ID (test code = Subcarina 5713) Fractions Treated to Date (test code = 5715) Prescribed Dose Per 2 Fraction in Gy (test code = 5716) Prescription Dose in cGy 6000 (test code = 5717) [facility] DAILY [id number] 18:34:11 Test Item Value Reference Range Interpretation [...] = 5710) Dosage Given to Date in 10.18011385 Gy (test code = 5711) Session Dosage Given in 2.50110420 Gy (test code = 5712) Plan ID (test code = Subcarina 5713) Fractions Treated to Date (test code = 5715) Prescribed Dose Per 2 Fraction in Gy (test code = 5716) Prescription Dose in cGy 6000 (test code = 5717) [facility] DAILY [id number] 18:34:11 Test Item Value Reference Range Interpretation Comments Course ID (test code = C3 5706) Course Start Date (test 2022-01-18 @16:41 code = 5707) Treatment Elapsed Days 6 (test code = 5709) Course Intent (test code Curative = 5686) Treatment Dates (test First Treatment Date: code = 568) 2022-02-05 @16:32Last Treatment Date: 2022-02-11 @13:27 Reference Point ID (test Subcarina code = 5710) Dosage Given to Date in 10.20689314 Gy (test code = 5711) Session Dosage Given in 2.81953522 Gy (test code = 5712) Plan ID (test code = Subcarina 5713) Fractions Treated to Date (test code = 5715) Prescribed Dose Per 2 Fraction in Gy (test code = 5716) Prescription Dose in cGy 6000 (test code = 5717) [facility] DAILY [id number] 18:34:11 Test Item Value Reference Range Interpretation [...] = 5710) Dosage Given to Date in 10.10845994 Gy (test code = 5711) Session Dosage Given in 2.85804043 Gy (test code = 5712) Plan ID (test code = Subcarina 5713) Fractions Treated to Date (test code = 5715) Prescribed Dose Per 2 Fraction in Gy (test code = 5716) Prescription Dose in cGy 6000 (test code = 5717) [facility] DAILY [id number] 18:34:11 Test Item Value Reference Range Interpretation [...] = 5710) Dosage Given to Date in 10.13757987 Gy (test code = 5711) Session Dosage Given in 2.10219029 Gy (test code = 5712) Plan ID (test code = Subcarina 5713) Fractions Treated to Date (test code = 5715) Prescribed Dose Per 2 Fraction in Gy (test code = 5716) Prescription Dose in cGy 6000 (test code = 5717) [facility] DAILY [id number] 20:19:58 Test Item Value Reference Range Interpretation [...] = 5710) Dosage Given to Date in 8.99412866 Gy (test code = 5711) Session Dosage Given in 2.53937124 Gy (test code = 5712) Plan ID (test code = Subcarina 5713) Fractions Treated to Date (test code = 5715) Prescribed Dose Per 2 Fraction in Gy (test code = 5716) Prescription Dose in cGy 6000 (test code = 5717) [facility] DAILY [id number] 20:19:58 Test Item Value Reference Range Interpretation Comments Course ID (test code = C3 5706) Course Start Date (test 2022-01-18 @16:41 code = 5707) Treatment Elapsed Days 3 (test code = 5709) Course Intent (test code Curative = 5686) Treatment Dates (test First Treatment Date: code = 568) 2022-02-05 @16:32Last Treatment Date: 2022-02-08 @15:18 Reference Point ID (test Subcarina code = 5710) Dosage Given to Date in 8.53558444 Gy (test code = 5711) Session Dosage Given in 2.34292295 Gy (test code = 5712) Plan ID (test code = Subcarina 5713) Fractions Treated to Date (test code = 5715) Prescribed Dose Per 2 Fraction in Gy (test code = 5716) Prescription Dose in cGy 6000 (test code = 5717) [facility] DAILY [id number] 20:19:58 Test Item Value Reference Range Interpretation [...] = 5710) Dosage Given to Date in 8.91613866 Gy (test code = 5711) Session Dosage Given in 2.11629124 Gy (test code = 5712) Plan ID (test code = Subcarina 5713) Fractions Treated to Date (test code = 5715) Prescribed Dose Per 2 Fraction in Gy (test code = 5716) Prescription Dose in cGy 6000 (test code = 5717) [facility] DAILY [id number] 20:19:58 Test Item Value Reference Range Interpretation [...] = 5710) Dosage Given to Date in 8.69605923 Gy (test code = 5711) Session Dosage Given in 2.83151766 Gy (test code = 5712) Plan ID (test code = Subcarina 5713) Fractions Treated to Date (test code = 5715) Prescribed Dose Per 2 Fraction in Gy (test code = 5716) Prescription Dose in cGy 6000 (test code = 5717) [facility] DAILY [id number] 20:02:52 Test Item Value Reference Range Interpretation [...] = 5710) Dosage Given to Date in 6.06832916 Gy (test code = 5711) Session Dosage Given in 2.93720986 Gy (test code = 5712) Plan ID (test code = Subcarina 5713) Fractions Treated to Date (test code = 5715) Prescribed Dose Per 2 Fraction in Gy (test code = 5716) Prescription Dose in cGy 6000 (test code = 5717) [facility] DAILY [id number] 20:02:52 Test Item Value Reference Range Interpretation [...] = 5710) Dosage Given to Date in 6.37823631 Gy (test code = 5711) Session Dosage Given in 2.84378039 Gy (test code = 5712) Plan ID (test code = Subcarina 5713) Fractions Treated to Date (test code = 5715) Prescribed Dose Per 2 Fraction in Gy (test code = 5716) Prescription Dose in cGy 6000 (test code = 5717) [facility] DAILY [id number] 20:02:52 Test Item Value Reference Range Interpretation [...] = 5710) Dosage Given to Date in 6.90777933 Gy (test code = 5711) Session Dosage Given in 2.48881338 Gy (test code = 5712) Plan ID (test code = Subcarina 5713) Fractions Treated to Date (test code = 5715) Prescribed Dose Per 2 Fraction in Gy (test code = 5716) Prescription Dose in cGy 6000 (test code = 5717) [facility] DAILY [id number] 20:02:52 Test Item Value Reference Range Interpretation [...] = 5710) Dosage Given to Date in 6.63809071 Gy (test code = 5711) Session Dosage Given in 2.54198774 Gy (test code = 5712) Plan ID (test code = Subcarina 5713) Fractions Treated to Date (test code = 5715) Prescribed Dose Per 2 Fraction in Gy (test code = 5716) Prescription Dose in cGy 6000 (test code = 5717) [facility] DAILY [id number] 21:37:52 Test Item Value Reference Range Interpretation [...] = 5710) Dosage Given to Date in 4.85634756 Gy (test code = 5711) Session Dosage Given in 2.70554116 Gy (test code = 5712) Plan ID (test code = Subcarina 5713) Fractions Treated to Date (test code = 5715) Prescribed Dose Per 2 Fraction in Gy (test code = 5716) Prescription Dose in cGy 6000 (test code = 5717) [facility] DAILY [id number] 21:37:52 Test Item Value Reference Range Interpretation [...] = 5710) Dosage Given to Date in 4.07431300 Gy (test code = 5711) Session Dosage Given in 2.51112980 Gy (test code = 5712) Plan ID (test code = Subcarina 5713) Fractions Treated to Date (test code = 5715) Prescribed Dose Per 2 Fraction in Gy (test code = 5716) Prescription Dose in cGy 6000 (test code = 5717) [facility] DAILY [id number] 21:37:52 Test Item Value Reference Range Interpretation Comments Course ID (test code = C3 5706) Course Start Date (test 2022-01-18 @16:41 code = 5707) Treatment Elapsed Days 1 (test code = 5709) Course Intent (test code Curative = 5686) Treatment Dates (test First Treatment Date: code = 568) 2022-02-05 @16:32Last Treatment Date: 2022-02-06 @16:35 Reference Point ID (test Subcarina code = 5710) Dosage Given to Date in 4.88489759 Gy (test code = 5711) Session Dosage Given in 2.70921525 Gy (test code = 5712) Plan ID (test code = Subcarina 5713) Fractions Treated to Date (test code = 5715) Prescribed Dose Per 2 Fraction in Gy (test code = 5716) Prescription Dose in cGy 6000 (test code = 5717) [facility] DAILY [id number] 21:37:52 Test Item Value Reference Range Interpretation [...] = 5710) Dosage Given to Date in 4.18503226 Gy (test code = 5711) Session Dosage Given in 2.25524734 Gy (test code = 5712) Plan ID (test code = Subcarina 5713) Fractions Treated to Date (test code = 5715) Prescribed Dose Per 2 Fraction in Gy (test code = 5716) Prescription Dose in cGy 6000 (test code = 5717) [facility] DAILY [id number] 21:43:41 Test Item Value Reference Range Interpretation [...] = 5710) Dosage Given to Date in 2.16011716 Gy (test code = 5711) Session Dosage Given in 2.91291608 Gy (test code = 5712) Plan ID (test code = Subcarina 5713) Fractions Treated to Date (test code = 5715) Prescribed Dose Per 2 Fraction in Gy (test code = 5716) Prescription Dose in cGy 6000 (test code = 5717) [facility] DAILY [id number] 21:43:41 Test Item Value Reference Range Interpretation [...] = 5710) Dosage Given to Date in 2.38318846 Gy (test code = 5711) Session Dosage Given in 2.29514921 Gy (test code = 5712) Plan ID (test code = Subcarina 5713) Fractions Treated to 30 Date (test code = 5715) Prescribed Dose Per 2 Fraction in Gy (test code = 5716) Prescription Dose in cGy 6000 (test code = 5717) [facility] DAILY [id number] 21:43:41 Test Item Value Reference Range Interpretation [...] = 5710) Dosage Given to Date in 2.12221378 Gy (test code = 5711) Session Dosage Given in 2.58515578 Gy (test code = 5712) Plan ID (test code = Subcarina 5713) Fractions Treated to Date (test code = 5715) Prescribed Dose Per 2 Fraction in Gy (test code = 5716) Prescription Dose in cGy 6000 (test code = 5717) [facility] DAILY [id number] 21:43:41 Test Item Value Reference Range Interpretation [...] = 5710) Dosage Given to Date in 2.45921311 Gy (test code = 5711) Session Dosage Given in 2.50450444 Gy (test code = 5712) Plan ID (test code = Subcarina 5713) Fractions Treated to Date (test code = 5715) Prescribed Dose Per 2 Fraction in Gy (test code = 5716) Prescription Dose in cGy 6000 (test code = 5717) [facility] [id number] 12:55:00 Test Item Value Reference Range Interpretation Comments POC glucose (test code 112 mg/dL 65-99 H Opera tor Name: [facility] = [id number]) BlaineDevice ID : [id number] able: [facility] Notified solderer Interpretation Abnormal (test code = 34621-1) [facility] COURSE [id number] 19:56:56 Test Item Value Reference Range Interpretation [...] Dose in cGy (test code = 5717) [facility] DAILY [id number] 13:24:35 Test Item Value Reference Range Interpretation [...] = Boost 5713) Fractions Treated to 10 of 10 Date (test code = 5715) Prescribed Dose Per Fraction in Gy (test code = 5716) Prescription Dose in cGy (test code = 5717) [facility] DAILY [id number] 16:45:25 Test Item Value Reference Range Interpretation [...] in cGy (test code = 5717) [facility] DAILY [id number] 16:45:46 Test Item Value Reference Range Interpretation [...] in cGy (test code = 5717) [facility] DAILY [id number] 17:14:34 Test Item Value Reference Range Interpretation [...] in cGy (test code = 5717) [facility] DAILY [id number] 17:29:35 Test Item Value Reference Range Interpretation [...] Dose in cGy (test code = 5717) [facility] DAILY [id number] 13:11:43 Test Item Value Reference Range Interpretation [...] Dose in cGy (test code = 5717) [facility] DAILY [id number] 16:51:36 Test Item Value Reference Range Interpretation [...] in cGy (test code = 5717) [facility] DAILY [id number] 17:37:41 Test Item Value Reference Range Interpretation [...] in cGy (test code = 5717) [facility] DAILY [id number] 17:27:38 Test Item Value Reference Range Interpretation [...] in cGy (test code = 5717) [facility] DAILY [id number] 17:41:13 Test Item Value Reference Range Interpretation [...] in cGy (test code = 5717) [facility] DAILY [id number] 16:18:41 Test Item Value Reference Range Interpretation [...] in cGy (test code = 5717) [facility] DAILY [id number] 17:12:42 Test Item Value Reference Range Interpretation [...] Dose in cGy (test code = 5717) [facility] DAILY [id number] 16:46:28 Test Item Value Reference Range Interpretation [...] Dose in cGy (test code = 5717) [facility] DAILY [id number] 16:52:47 Test Item Value Reference Range Interpretation [...] Dose in cGy (test code = 5717) [facility] DAILY [id number] 13:51:59 Test Item Value Reference Range Interpretation [...] Dose in cGy (test code = 5717) [facility] DAILY [id number] 16:51:51 Test Item Value Reference Range Interpretation [...] Dose in cGy (test code = 5717) [facility] DAILY [id number] 17:12:14 Test Item Value Reference Range Interpretation [...] in cGy (test code = 5717) [facility] DAILY [id number] 16:14:16 Test Item Value Reference Range Interpretation [...] in cGy (test code = 5717) [facility] DAILY [id number] 21:51:17 Test Item Value Reference Range Interpretation [...] Dose in cGy (test code = 5717) [facility] MptmlgmiPJRW-YsL-1 (COVID-19) RNA [Presence] in Respiratory specimen by JOANN with probe [id number] 02:53:28 Test Item Value Reference Range Interpretation Comments SARS-CoV-2 (COVID-19) RNA Not detected Not-Detected [Presence] in Respiratory specimen by JOANN with probe detection (test code = 58293-2) Whether patient is employed in a healthcare setting (test code = 87574-2) Whether the patient has symptoms related to condition of interest (test code = 03549-3) Patient was hospitalized because of this condition (test code = 82138-3) Whether the patient was admitted to intensive care unit (ICU) for condition of interest (test code = 15487-0) Whether patient resides in a congregate care setting (test code = 32659-1) TU FITZGERALD 12 [id number] 02:03:24 Test Item Value Reference Range Interpretation Comments Ventricular rate (test code = 253) Atrial rate (test code = 255) CT interval (test code = 266) QRSD interval [...] 25-JAN-2021 11:45,-premature atrial complexes are now present[facility] [id number] 14:12:43 Test Item Value Reference Range Interpretation [...] Dose in cGy (test code = 5717) [facility] [id number] 00:18:32 Test Item Value Reference Range Interpretation Comments Case number (test code = [id number]) Cytology See link below for (non-gynecological) PDF Lab Report report (test code = 1178) Result status (test code This is Final Report = [id number]) for [id number] [facility] and Rh [id number] 16:51:00 Test Item Value Reference Range Interpretation Comments ABO grouping (test code = 883-9) A Rh type (test code = 64699-7) POS [facility] [id number] 18:41:00 Test Item Value Reference Range Interpretation Comments ABO grouping (test code = 883-9) A Rh type (test code = 72926-2) POS Antibody screen (gel) (test code = NEG 890-4) [facility] [Presence] in Respiratory specimen by JOANN with probe [id number] 17:58:19 Test Item Value Reference Range Interpretation Comments SARS-CoV-2 (COVID-19) RNA Not detected Not-Detected [Presence] in Respiratory specimen by JOANN with probe detection (test code = 90423-7) Whether patient is employed in a healthcare setting (test code = 23853-9) Whether the patient has symptoms related to condition of interest (test code = 06498-2) Patient was hospitalized because of this condition (test code = 53369-4) Whether the patient was admitted to intensive care unit (ICU) for condition of interest (test code = 91057-5) Whether patient resides in a congregate care setting (test code = 44487-9) TU DOUGLAS
--- NOTE | 2022-12-10 13:31 | RAD REPORT ---
EXAM DESCRIPTION: USExtremity Venous Uni Ltd12/10/2022 1:11 pm CLINICAL HISTORY: Right leg pain COMPARISON: None. FINDINGS: Right common femoral, superficial femoral, greater saphenous, popliteal and right posterio r tibial veins are compressible and demonstrate augmentation. Doppler demonstrates good flow. 4.2 x 1.4 centimeter right inguinal lymph node Grayscale, color and spectral analysis performed on all vessels IMPRESSION: No evidence of deep venous thrombosis involving the right lower extremity. 4.2 x 1.4 centimeter right inguinal lymph node. This is nonspecific. Followup ultrasound in approxima tely 6 weeks recommended to assess stability/resolution
--- NOTE | 2022-12-10 13:39 | RAD REPORT ---
EXAM DESCRIPTION: Makayla Right Christine Cont12/10/2022 1:20 pm CLINICAL HISTORY: Right knee pain COMPARISON: October 2022 x-ray TECHNIQUE: Computed axial tomography of the right knee was obtained with coronal and sagittal recons truction. All CT scans are performed using dose optimization technique as appropriate and may include automated exposure control or mA/KV adjustment according to patient size. FINDINGS: 4 centimeter lytic lesion is present within medial tibial plateau extending into the medi al tibial metaphysis. Cortical destruction is present. Smaller additional lytic areas proximal tibia. Small joint effusion. No dislocation IMPRESSION: 4 centimeter lytic lesion medial tibial plateau extending into the medial tibial metaph ysis with cortical destruction most likely a metastasis
--- NOTE | 2022-12-10 13:50 | EDPHYS ---
Physician Documentation [facility] Name: Maite Severino Age: 62 yrs Sex: Female : 1960 Arrival Date: 12/10/2022 Time: 12:29 Bed 7 Private MD: ED Physician Madan Butts HPI: 12/10 12:41 This 62 yrs old Female presents to ER via Ambulatory with complaints of Knee Injury - 2 rn falls in the last month on right knee. 12:41 The patient presents with pain. The complaints affect the right knee. Onset: The rn symptoms/episode began/occurred 1 month(s) ago. Modifying factors: The symptoms are alleviated by nothing. the symptoms are aggravated by weight bearing. Associated signs and symptoms: Pertinent negatives fever, warmth, weakness. Severity of symptoms: At their worst the symptoms were moderate, in the emergency department the symptoms have improved. The patient has not experienced similar symptoms in the past. Pt reports 2 falls 1 month ago, struck right knee on ground, had xrays at that time, states negative, came today because still having pain in right knee. Is ambulatory with walker, using walker even prior to falls.. Historical: - Allergies: 12:38 No Known Allergies; cm10 - PMHx: 12:38 Asthma; BRAIN TUMOR; Lung Cancer; Schizophrenia; cm10 - PSHx: 12:38 Cholecystectomy; tunor removal; cm10 - Immunization history:: Adult Immunizations unknown. - Social history:: Smoking status: unknown. - Family history:: not pertinent. - Hospitalizations: : No recent hospitalization is reported. ROS: 12:41 Constitutional: Negative for fever, chills, and weight loss, MS/Extremity: + pain in rn right knee Exam: 12:41 Constitutional: This is a well developed, well nourished patient who is awake, alert, rn and in no acute distress. Ambulatory with walker to room and triage. MS/ Extremity: Pulses equal, no cyanosis. Neurovascular intact. Full, normal range of motion. + mild swelling around right knee, no warmth. Vital Signs: 12:36 BP 141 / 91; Pulse 100; Resp 18; Temp 97.1; Pulse Ox 96% on R/A; cm10 12:40 Weight 74.84 kg; Height 5 ft. 0 in. ; Pain 10/10; cm10 14:20 BP 140 / 96; Pulse 81; Resp 17 S; Pulse Ox 100% on R/A; kc6 12:40 Body Mass Index 32.22 (74.84 kg, 152.4 cm) cm10 12:40 Pain Scale: Adult cm10 MDM: 12:34 Patient medically screened. rn 13:47 Differential diagnosis: closed fracture, contusion, metastasis. Data reviewed: vital rn signs, nurses notes, radiologic studies, CT scan, ultrasound, and as a result, I will discharge patient. Counseling: I had a detailed discussion with the patient and/or guardian regarding: the historical points, exam findings, and any diagnostic results supporting the discharge/admit diagnosis, lab results, radiology results, the need for outpatient follow up, to return to the emergency department if symptoms worsen or persist or if there are any questions or concerns that arise at home. Special discussion: I discussed with the patient/guardian in detail that at this point there is no indication for admission to the hospital. It is understood, however, that if the symptoms persist or worsen the patient needs to return immediately for re-evaluation. Based on the history and exam findings, there is no indication for further emergent testing or inpatient evaluation. I discussed with the patient/guardian the need to see the health researcher/oncologist for further evaluation of the symptoms. I discussed with the patient/guardian the need to see the orthopedic surgeon for further evaluation of the symptoms. I discussed with the patient/guardian the need to see the primary care provider for further evaluation of the symptoms. ED course: U/S neg for DVT, CT knee shows lytic lesion, possibly metastasis from known cancer. Patient already undergoing chemo and radiation, results printed and will take to her oncologist and orthopedist for further recommendations. . 12/10 12:45 Order name: Knee Right Wo Cont; Complete Time: 13:43 EDMS 12/10 12:49 Order name: Extremity Venous Uni Ltd US; Complete Time: 13:33 rn Administered Medications: No medications were administered Disposition Summary: 12/10/22 13:49 Discharge Ordered Location: Home rn Problem: an ongoing problem rn Symptoms: are unchanged rn Condition: Stable rn Diagnosis - Lytic lesion of right tibial plateau rn Followup: rn - With: Private Physician - When: As needed - Reason: Recheck today's complaints, Re-evaluation by your physician Discharge Instructions: - Discharge Summary Sheet rn - Bone Metastasis rn - Chronic Knee Pain, Adult rn Forms: - Medication Reconciliation Form rn - Thank You Letter rn - Antibiotic application development intern - Prescription Opioid Use rn - Patient Portal Instructions rn Signatures: Dispatcher [employer] Madan Michelle MD MD rn Martinez, Clarissa, RN RN 10
--- NOTE | 2022-12-10 13:50 | ER ---
Nurse's Notes [facility] Name: Maite Severino Age: 62 yrs Sex: Female : 1960 Arrival Date: 12/10/2022 Time: 12:29 Bed 7 Private MD: Diagnosis: Lytic lesion of right tibial plateau Presentation: 12/10 12:36 Chief complaint: Patient states: right knee pain X1 month s/p 2 falls. Pt states that cm10 she fell right on the knee. Pt states that she has had x-rays of knee and they were negative. Coronavirus screen: Client denies travel out of the [place] in the last 14 days. Ebola Screen: Patient denies travel to an Ebola-affected area in the 21 days before illness onset. No symptoms or risks identified at this time. Initial Sepsis Screen: Does the patient meet any 2 criteria? HR > 90 bpm. No. Patient's initial sepsis screen is negative. Does the patient have a suspected source of infection? No. Patient's initial sepsis screen is negative. Risk Assessment: Do you want to hurt yourself or someone else? Patient reports no desire to harm self or others. Onset of symptoms was December 10, 2022. 12:36 Method Of Arrival: Ambulatory cm10 12:36 Acuity: MINH 4 cm10 Triage Assessment: 12:39 General: Appears in no apparent distress. comfortable, Behavior is calm, cooperative. cm10 Pain: Complains of pain in right knee Pain radiates to right hoffmann and dorsum of right foot. Neuro: No deficits noted. Level of Consciousness is awake, alert, Oriented to person, place, time, situation. Respiratory: No deficits noted. Airway is patent Respiratory effort is even, unlabored, Respiratory pattern is regular, symmetrical. Historical: - Allergies: 12:38 No Known Allergies; cm10 - PMHx: 12:38 Asthma; BRAIN TUMOR; Lung Cancer; Schizophrenia; cm10 - PSHx: 12:38 Cholecystectomy; tunor removal; cm10 - Immunization history:: Adult Immunizations unknown. - Social history:: Smoking status: unknown. - Family history:: not pertinent. - Hospitalizations: : No recent hospitalization is reported. Screenin:01 [facility] ED Fall Risk Assessment (Adult) History of falling in the last 3 months, kc6 including since admission Yes- single mechanical fall (1 pt) Confusion or Disorientation No (0 pts) Intoxicated or Sedated No (0 pts) Impaired Gait Yes (1 pt) Mobility Assist Device Used Yes (1 pt) Altered Elimination No (0 pt) Score/Fall Risk Level 3 or more points = High Risk. Abuse screen: Denies threats or abuse. Denies injuries from another. Nutritional screening: No deficits noted. Tuberculosis screening: No symptoms or risk factors identified. Assessment: 13:00 General: Appears in no apparent distress. uncomfortable, Behavior is calm, cooperative, kc6 appropriate for age. Pain: Complains of pain in right knee Pain does not radiate. Pain currently is 10 out of 10 on a pain scale. Neuro: Level of Consciousness is awake, alert, obeys commands, Oriented to person, place, time, situation, Appropriate for age. Cardiovascular: Capillary refill < 3 seconds. Respiratory: Airway is patent Trachea midline Respiratory effort is even, unlabored, Respiratory pattern is regular, symmetrical. GI: No signs and/or symptoms were reported involving the gastrointestinal system. : No signs and/or symptoms were reported regarding the genitourinary system. EENT: No signs and/or symptoms were reported regarding the EENT system. Derm: No signs and/or symptoms reported regarding the dermatologic system. Skin is intact, is healthy with good turgor, Skin is pink, warm \T\ dry. Musculoskeletal: No signs and/or symptoms reported regarding the musculoskeletal system. Circulation, motion, and sensation intact. Capillary refill < 3 seconds, Range of motion: limited in right knee. 13:34 Reassessment: Patient appears in no apparent distress at this time. No changes from kc6 previously documented assessment. Patient and/or family updated on plan of care and expected duration. Pain level reassessed. Patient is alert, oriented x 3, equal unlabored respirations, skin warm/dry/pink. Vital Signs: 12:36 BP 141 / 91; Pulse 100; Resp 18; Temp 97.1; Pulse Ox 96% on R/A; cm10 12:40 Weight 74.84 kg; Height 5 ft. 0 in. ; Pain 10/10; cm10 14:20 BP 140 / 96; Pulse 81; Resp 17 S; Pulse Ox 100% on R/A; kc6 12:40 Body Mass Index 32.22 (74.84 kg, 152.4 cm) cm10 12:40 Pain Scale: Adult cm10 ED Course: 12:32 Patient arrived in ED. im 12:34 Madan Butts MD is Attending Physician. rn 12:38 Triage completed. cm10 12:39 Arm band placed on Patient placed in an exam room, on a stretcher. cm10 12:41 Myla Fry, RN is Primary Nurse. kc6 13:01 Patient has correct armband on for positive identification. Bed in low position. Call kc6 light in reach. Side rails up X 1. 13:13 Extremity Venous Uni Ltd US In Process Unspecified. EDMS 13:22 Knee Right Wo Cont In Process Unspecified. EDMS 14:20 No provider procedures requiring assistance completed. Patient did not have IV access kc6 during this emergency room visit. Administered Medications: No medications were administered Medication: 14:20 VIS not applicable for this client. kc6 Outcome: 13:49 Discharge ordered by . rn 14:20 Discharged to home ambulatory. kc6 14:20 Condition: stable 14:20 Discharge instructions given to patient, Instructed on discharge instructions, follow up and referral plans. Demonstrated understanding of instructions, follow-up care. 14:21 Patient left the ED. kc6 Signatures: Dispatcher [employer] EDMS Madan Butts MD MD rn Campbell, Kaitlyn, RN RN kc6 Emilia Tripathi Clarissa, RN RN cm10
[2022-12-10 14:26] VITALS: TEMP 97.1
[2022-12-10 14:28] VITALS: BP 140/96; O2SAT 100
== END 2022-12-10 14:21 | disposition home or self-care (01) ==
LOC: ER 12:29
DX: M89.8X6 Other specified disorders of bone, lower leg (principal)
CPT/HCPCS: 73700; 93971

== ENCOUNTER 2023-05-21 19:37 | Inpatient (IN) | payer MEDICARE, OTHER ==
[2023-05-21] MEDS ORDERED: ALBUTEROL 2.5 MG/3 ML NEB SOL ONE (20:13)
[2023-05-21] MEDS ORDERED: IPRATROPIUM BROM 0.5MG/2.5ML ONE (20:14)
[2023-05-21 20:21] LABS: Absolute Lymphocytes (CBC) 0.3 K/uL (0.7-4.9); Hematocrit 23.5 % (36.0-45.0); Lymphocytes % 24.8 % (15.3-44.8); MCV 109.4 fL (80-100); MPV 9.9 fL (7.6-11.3); Platelets 97 thou/uL (152-406); RBC Red Blood Cell Count 2.15 M/uL (3.86-4.86)
[2023-05-21] MEDS ORDERED: METHYLPREDNISOLONE 125 MG INJ ONE (20:24)
[2023-05-21 20:26] LABS: Protime INR 1.11
[2023-05-21 20:34] LABS: Albumin 2.5 g/dL (3.4-5.0); Bilirubin Direct 0.1 mg/dL (0-0.2); Bilirubin Indirect, Calculated 0.2 mg/dL (0.2-0.8); Bilirubin Total 0.3 mg/dL (0.2-1.0); Troponin High Sensitivity 17.4 pg/mL (<58.9)
[2023-05-21 20:36] LABS: Potassium 3.4 mEq/L (3.5-5.1)
[2023-05-21 20:39] LABS: Magnesium 0.9 mg/dL (1.6-2.4)
[2023-05-21] MEDS ORDERED: ONDANSETRON 4 MG/2 ML VIAL ONE (20:43)
[2023-05-21 20:56] LABS: Arterial Blood Carboxyhemoglob 1.2 % (0-1.5); Blood Gas Oxyhemoglobin 91.2 % (94-97); Blood O2 Saturation 94.3 % (92-98.5)
[2023-05-21] MEDS ORDERED: ACETAMINOPHEN 500 MG TAB ONE (20:57)
[2023-05-21] MEDS ORDERED: CEFEPIME 2 GM VIAL ONE (21:11)
[2023-05-21] MEDS ORDERED: VANCOMYCIN 1 GM/VIAL ONE (21:11)
[2023-05-21] MEDS ORDERED: NA CHLORIDE 0.9% 100 ML ONE (21:12)
[2023-05-21] MEDS ORDERED: VANCOMYCIN 500 MG/VIAL ONE (21:12)
[2023-05-21] MEDS ORDERED: NA CHLORIDE 0.9% 2,000 ML ONE (21:12)
[2023-05-21] MEDS ORDERED: NA CHLORIDE 0.9% 500 ML ONE (21:12)
[2023-05-21 21:24] LABS: SARS-CoV-2 Antigen Rapid Res Negative (Negative)
--- NOTE | 2023-05-21 21:27 | RAD REPORT ---
EXAM DESCRIPTION: Cristobal Single View05/21/2023 8:26 pm CLINICAL HISTORY: Chest pain COMPARISON: April 2023 FINDINGS: Small to moderate right pleural effusion. Right basilar atelectasis. Mild right upper lobe opacities may represent pneumonia or pneumonitis. Calcified granuloma right lung. Left lung appears clear of acute infiltrate. Heart is normal size
[2023-05-21] MEDS ORDERED: MAGNESIUM SULFATE 1 gm IVPB 1 GM/100 ML BAG IV ONE (21:37)
[2023-05-21 22:03] LABS: Blood Morphology Comment NOTED (NOT SEEN); Macrocytosis 1+; Platelet Estimate DECR
--- NOTE | 2023-05-21 22:12 | EDPHYS ---
Physician Documentation [facility] Name: Maite Severino Age: 62 yrs Sex: Female : 1960 Arrival Date: 05/21/2023 Time: 19:37 Bed 3 Private MD: ED Physician Anna Petty HPI: 05/21 22:49 This 62 yrs old Female presents to ER via Wheelchair with complaints of gb1 Breathing Difficulty. 22:49 62-year-old female with history of metastatic cancer with a brain tumor with gb1 primary lung etiology is here with shortness of breath difficulty breathing. She has been having fever and chills for 2 to 3 days. She is currently on chemotherapy. They would not give her chemotherapy at her last visit due to her blood counts being "too low". Historical: - Allergies: 19:53 No Known Allergies; jb4 - PMHx: 19:53 Asthma; BRAIN TUMOR; Lung Cancer; Schizophrenia; jb4 - PSHx: 19:53 tunor removal; Cholecystectomy; jb4 ROS: 22:49 Respiratory: Positive for cough, dyspnea on exertion, orthopnea, shortness of breath, gb1 wheezing, 22:49 Hematologic/Lymphatic: Positive for anemia, 22:49 All other systems are negative, Exam: 22:49 Head/Face: Normocephalic, atraumatic. ENT: Nares patent. No nasal discharge, no gb1 septal abnormalities noted. Tympanic membranes are normal and external auditory canals are clear. Oropharynx with no redness, swelling, or masses, exudates, or evidence of obstruction, uvula midline. Mucous membranes moist. Back: No spinal tenderness. No costovertebral tenderness. Full range of motion. Skin: Warm, dry with normal turgor. Normal color with no rashes, no lesions, and no evidence of cellulitis. MS/ Extremity: Pulses equal, no cyanosis. Neurovascular intact. Full, normal range of motion. Neuro: Awake and alert, GCS 15, oriented to person, place, time, and situation. Cranial nerves II-XII grossly intact. Motor strength 5/5 in all extremities. Sensory grossly intact. Cerebellar exam normal. Normal gait. 22:49 Constitutional: The patient appears in obvious distress, moderately distressed, 22:49 Chest/axilla: Inspection: 22:49 Respiratory: moderate respiratory distress is noted, Respirations: labored breathing, accessory muscle usage, nasal flaring, intercostal retractions, shallow respirations, Breath sounds: wheezing: Respiratory rate: tachypneic Vital Signs: 19:47 BP 135 / 82; Pulse 131; Resp 23; Pulse Ox 93% on 6 lpm NC; jb4 20:30 BP 131 / 82; Pulse 119; Resp 27; Pulse Ox 98% on BiPAP; ls5 20:46 Temp 101.4; jb4 21:04 Weight 74.39 kg (M); jb4 22:29 BP 110 / 61; Pulse 111; Resp 21; Temp 100(A); Pulse Ox 97% on 4 lpm NC; jb4 23:00 BP 114 / 64; Pulse 106; Resp 24; Pulse Ox 98% 3 lpm ; jb4 05/22 00:13 BP 120 / 72; Pulse 102; Resp 26; Temp 98.7(O); Pulse Ox 99% on 3 lpm NC; jb4 MDM: 05/21 19:50 Patient medically screened. kb 22:49 Differential diagnosis: asthma, Bronchitis Chronic Obstructive Pulmonary Disease gb1 pneumonia, pulmonary edema, Pulmonary Embolism reactive airway disease, Sepsis Unstable Angina. Data reviewed: vital signs, nurses notes. Response to treatment: the patient's symptoms have markedly improved after treatment, Patient is being weaned off BiPAP after ABG results were within normal limits. There was no hypercapnia. She is clinically improved.. ED course: 62-year-old female with metastatic cancer here with neutropenic fever secondary to a right upper lobe pneumonia. I started the sepsis protocol to include IV antibiotics and normal saline bolus at 30 cc/kg. The patient's been admitted to the inpatient hospitalist service of . I discussed the patient with him via SMS text. Patient is otherwise improving in the emergency department compared to ED arrival.. 22:56 Antibiotic administration: Vancomycin and cefepime. gb1 05/21 19:47 Order name: Basic Metabolic Panel; Complete Time: 20:42 sp3 05/21 19:47 Order name: CBC with Diff sp3 05/21 19:47 Order name: LFT's; Complete Time: 20:42 sp3 05/21 19:47 Order name: Magnesium; Complete Time: 20:42 sp3 05/21 19:47 Order name: NT PRO-BNP; Complete Time: 20:42 sp3 05/21 19:47 Order name: PT-INR; Complete Time: 20:42 sp3 05/21 19:47 Order name: Troponin HS; Complete Time: 20:42 sp3 05/21 19:47 Order name: ABG; Complete Time: 21:08 sp3 05/21 19:47 Order name: Lactate w/ 2H reflex if indic.; Complete Time: 20:42 sp3 05/21 20:49 Order name: Blood Culture Adult (2) gb1 05/21 20:51 Order name: SARS RAPID; Complete Time: 22:00 jb4 05/21 20:51 Order name: Flu; Complete Time: 22:00 jb4 05/21 22:04 Order name: Manual Differential EDMS 05/21 22:35 Order name: Urinalysis w/ reflexes EDMS 05/21 22:35 Order name: Basic Metabolic Panel EDMS 05/21 22:35 Order name: Basic Metabolic Panel EDMS 05/21 22:35 Order name: CBC with Automated Diff EDMS 05/21 22:35 Order name: CBC with Automated Diff EDMS 05/21 22:35 Order name: Magnesium EDMS 05/21 22:35 Order name: Magnesium EDMS 05/21 22:36 Order name: Vitamin B12 Level EDMS 05/21 23:27 Order name: Lactate Sepsis 2 HR Follow-up EDMS 05/21 19:47 Order name: XRAY Chest (1 view); Complete Time: 22:00 sp3 05/21 19:47 Order name: BIPAP sp3 05/21 19:47 Order name: EKG; Complete Time: 19:48 sp3 05/21 22:35 Order name: CONS Physician Consult EDMS 05/21 19:47 Order name: Cardiac monitoring; Complete Time: 20:11 sp3 05/21 19:47 Order name: EKG - Nurse/Tech; Complete Time: 20:11 sp3 05/21 19:47 Order name: IV Saline Lock; Complete Time: 20:11 sp3 05/21 19:47 Order name: Labs collected and sent; Complete Time: 20:11 sp3 05/21 19:47 Order name: O2 Per Protocol; Complete Time: 20:11 sp3 05/21 19:47 Order name: O2 Sat Monitoring; Complete Time: 20:11 sp3 Administered Medications: 20:22 Drug: DuoNeb Nebulize (3:1) (2.5 mg - 0.5 mg) 3 ml Nebulizer once Route: Nebulizer; jb4 20:40 Drug: MethylPrednisoLONE IVP 125 mg IVP once Route: IVP; Site: left antecubital; jb4 20:47 Drug: Ondansetron IVP 4 mg IVP once; over 2 minutes Route: IVP; Site: left antecubital; jb4 21:03 Drug: Acetaminophen PO 1000 mg PO once Route: PO; jb4 21:35 Drug: Cefepime IVPB 2 grams IVPB at 200 ml/hr once over 30 mins; (mix in NS 100 mL) jb4 Route: IVPB; Rate: 200 ml/hr; Infused Over: 30 mins; Site: right forearm; 21:35 Drug: NS 0.9% IV (30 ml/kg) 30 ml/kg IV at bolus once; Sepsis Protocol Route: IV; Rate: jb4 bolus; Site: right forearm; 21:44 Drug: Magnesium Sulfate IVPB 1 grams IVPB once over 1 hrs Route: IVPB; Infused Over: 1 jb4 hrs; Site: left antecubital; 22:18 Drug: vancoMYCIN IVPB 20 mg/kg IVPB once; once over 2 hours; not to exceed 2 grams; jb4 (mix in 250 to 500mL NS) Route: IVPB; Site: right forearm; Disposition: 22:55 Chart complete. gb1 Disposition Summary: 05/21/23 22:12 Hospitalization Ordered Notes: Hospitalization Status: Inpatient Admission gb1 Provider: Mahendra Valerio gb Condition: Fair gb1 Problem: new gb1 Symptoms: have worsened gb1 Bed/Room Type: Standard banner Location: Intensive Care Unit(05/21/23 23:18) as6 Room Assignment: 4-(05/21/23 23:18) as6 Diagnosis - Other neutropenia gb1 - Fever, unspecified gb1 - Bronchopneumonia, unspecified organism gb1 - Hypomagnesemia gb1 - Respiratory failure, unspecified with hypoxia gb1 Forms: - Medication Reconciliation Form gb1 - SBAR form gb1 - Leadership Thank You Letter gb1 Signatures: Dispatcher [employer] EDMS Daphney Disla, VIDA-C VIDA-Hugh Head RN RN jb4 Raúl Guido MD MD sp3 Wu Chatman RN RN as6 Anna Petty MD MD gb1 Corrections: (The following items were deleted from the chart) : 20:53 COVID-19/FLU A+B+[id number].BRZ ordered. EDMS EDMS 22:40 22:12 gb1 as6 23:08 22:40 207 as6 as6 23:18 22:12 Telemetry/MedSurg (Inpatient) gb1 as6 23:18 23:08 as6 as6
--- NOTE | 2023-05-21 22:12 | ER ---
Nurse's Notes [facility] Name: Maite Severino Age: 62 yrs Sex: Female : 1960 Arrival Date: 05/21/2023 Time: 19:37 Bed 3 Private MD: Diagnosis: Other neutropenia;Fever, unspecified;Bronchopneumonia, unspecified organism;Hypomagnesemia;Respiratory failure, unspecified with hypoxia Presentation: 05/21 19:47 Chief complaint: Pt presents to the [facility] in respiratory distress. O2 is in the 70's. jb4 Coronavirus screen: Client presents with at least one sign or symptom that may indicate coronavirus-19. Standard/surgical mask placed on the client. Provider contacted for isolation considerations. Ebola Screen: No symptoms or risks identified at this time. Initial Sepsis Screen: Does the patient meet any 2 criteria? No. Patient's initial sepsis screen is negative. Does the patient have a suspected source of infection? No. Patient's initial sepsis screen is negative. Risk Assessment: Do you want to hurt yourself or someone else? Patient reports no desire to harm self or others. Onset of symptoms was May 21, 2023. Transition of care: patient was not received from another setting of care. 19:47 Method Of Arrival: Wheelchair jb4 19:47 Acuity: MINH 2 jb4 Historical: - Allergies: 19:53 No Known Allergies; jb4 - PMHx: 19:53 Asthma; BRAIN TUMOR; Lung Cancer; Schizophrenia; jb4 - PSHx: 19:53 tunor removal; Cholecystectomy; jb4 Screenin:02 [facility] ED Fall Risk Assessment (Adult) History of falling in the last 3 months, jb4 including since admission No falls in past 3 months (0 pts) Confusion or Disorientation No (0 pts). Abuse screen: Denies threats or abuse. Nutritional screening: No deficits noted. Tuberculosis screening: No symptoms or risk factors identified. Assessment: 20:00 General: Appears distressed, uncomfortable, ill, Behavior is cooperative, anxious, jb4 restless. Pain: Denies pain. Neuro: Level of Consciousness is awake, alert, obeys commands, Oriented to person, place, time, situation. Cardiovascular: Patient's skin is warm and dry. Respiratory: Airway is patent Respiratory effort is labored, gasping, shallow, using tripod position, Respiratory pattern is symmetrical, tachypnea. GI: No signs and/or symptoms were reported involving the gastrointestinal system. : No signs and/or symptoms were reported regarding the genitourinary system. EENT: No signs and/or symptoms were reported regarding the EENT system. Derm: Skin is intact, Skin is dry, Skin is dusky, Skin temperature is warm. Musculoskeletal: Circulation, motion, and sensation intact. Range of motion: intact in all extremities. 21:00 Reassessment: Patient appears in no apparent distress at this time. Patient and/or jb4 family updated on plan of care and expected duration. Pain level reassessed. Patient is alert, oriented x 3, equal unlabored respirations, skin warm/dry/pink. Pt is tolerating Bi-pap, skin is now pink, warm, and dry. Reports feeling better. Appears to be resting more easily. 22:27 Reassessment: Patient appears in no apparent distress at this time. Patient and/or jb4 family updated on plan of care and expected duration. Pain level reassessed. Patient is alert, oriented x 3, equal unlabored respirations, skin warm/dry/pink. Pt now on 4L NC. 23:19 Respiratory: Breath sounds are clear in right upper lobe and right middle lobe Breath jb4 sounds are diminished in left upper lobe and left lower lobe Breath sounds with rhonchi in left upper lobe and left lower lobe. 05/22 00:13 Reassessment: Pt resting in bed with eyes closed, respirations are unlabored and jb4 tachypneic. No s/s of pain or distress noted. Vital Signs: 05/21 19:47 BP 135 / 82; Pulse 131; Resp 23; Pulse Ox 93% on 6 lpm NC; jb4 20:30 BP 131 / 82; Pulse 119; Resp 27; Pulse Ox 98% on BiPAP; ls5 20:46 Temp 101.4; jb4 21:04 Weight 74.39 kg (M); jb4 22:29 BP 110 / 61; Pulse 111; Resp 21; Temp 100(A); Pulse Ox 97% on 4 lpm NC; jb4 23:00 BP 114 / 64; Pulse 106; Resp 24; Pulse Ox 98% 3 lpm ; jb4 05/22 00:13 BP 120 / 72; Pulse 102; Resp 26; Temp 98.7(O); Pulse Ox 99% on 3 lpm NC; jb4 ED Course: 05/21 19:44 Patient arrived in ED. es 19:47 Hugh Butler, RN is Primary Nurse. jb4 19:50 Daphney Disla FNP-C is [facility]. kb 19:50 Raúl Guido MD is Attending Physician. kb 19:53 Triage completed. jb4 19:53 Arm band placed on right wrist. jb4 20:00 Initial lab(s) drawn, by me, sent to lab. Inserted saline lock: 18 gauge in left jb4 antecubital area, using aseptic technique. Blood collected. 20:07 Anna Petty MD is Attending Physician. gb1 20:27 XRAY Chest (1 view) In Process Unspecified. EDMS 21:04 Inserted saline lock: 20 gauge in right forearm, using aseptic technique. Blood ls5 collected. 22:09 Mahendra Valerio MD is Hospitalizing Provider. gb1 23:02 No provider procedures requiring assistance completed. Patient admitted, IV remains in jb4 place. Administered Medications: 20:22 Drug: DuoNeb Nebulize (3:1) (2.5 mg - 0.5 mg) 3 ml Nebulizer once Route: Nebulizer; jb4 20:40 Drug: MethylPrednisoLONE IVP 125 mg IVP once Route: IVP; Site: left antecubital; jb4 20:47 Drug: Ondansetron IVP 4 mg IVP once; over 2 minutes Route: IVP; Site: left antecubital; jb4 21:03 Drug: Acetaminophen PO 1000 mg PO once Route: PO; jb4 21:35 Drug: Cefepime IVPB 2 grams IVPB at 200 ml/hr once over 30 mins; (mix in NS 100 mL) jb4 Route: IVPB; Rate: 200 ml/hr; Infused Over: 30 mins; Site: right forearm; 21:35 Drug: NS 0.9% IV (30 ml/kg) 30 ml/kg IV at bolus once; Sepsis Protocol Route: IV; Rate: jb4 bolus; Site: right forearm; 21:44 Drug: Magnesium Sulfate IVPB 1 grams IVPB once over 1 hrs Route: IVPB; Infused Over: 1 jb4 hrs; Site: left antecubital; 22:18 Drug: vancoMYCIN IVPB 20 mg/kg IVPB once; once over 2 hours; not to exceed 2 grams; jb4 (mix in 250 to 500mL NS) Route: IVPB; Site: right forearm; Outcome: 22:12 Decision to Hospitalize by Provider. gb1 05/22 00:15 Admitted to ICU accompanied by nurse, via stretcher, room 4, with chart, Report called jb4 to HAZEL Malloy Condition: stable Discharge instructions given to patient, family, Instructed on the need for admit, Demonstrated understanding of follow-up care, 00:16 Patient left the ED. jb4 Signatures: Dispatcher [employer] EDMS Daphney Disla, DRIVER EDUCATION INSTRUCTOR-C DRIVER EDUCATION INSTRUCTOR-Ckb Ana Paula Augustine James, RN RN jb4 Calvin Abrams ls5 Anna Petty MD MD gb1 Corrections: (The following items were deleted from the chart) 05/21 20:36 20:30 BP 131 / 82; Pulse 119bpm; Resp 27bpm; Pulse Ox 98%; ls5 ls5 23:02 22:29 BP 110 / 61; Pulse 111bpm; Resp 18bpm; Pulse Ox 97% 4 lpm Nasal Cannula; Temp jb4 100F Axillary; jb4
[2023-05-21] MEDS ORDERED: MAGNESIUM 50% 3 GM in NA CHLORIDE 0.9% 100 ML IV ONE (22:34)
[2023-05-21] MEDS ORDERED: POTASSIUM CL SA 10 MEQ TAB PO ONE (22:35)
--- NOTE | 2023-05-21 22:45 | P.HP ---
Certification for Inpatient Patient admitted to: Inpatient Patient will require the following post-hospital care: Home Health Services Practitioner: I am a practitioner with admitting privileges, knowledge of patient current condition, hospital course, and medical plan of care. Services: Services provided to patient in accordance with Admission requirements found in Title 42 Section 412.3 of the Code of Federal Regulations Patient History Date of Service: 05/22/23 Reason for admission: Shortness of breath History of Present Illness: Pt is a 62 yo female with past medical history of brain cancer, Lung cancer, liver cancer, Schizophrenia and Asthma who presents with shortness of breath and fever. 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 This history is from chart review and input from her son at bedside. Of note, pt is currently taking chemotherapy. Her family members noticed that her oxygen saturation dropped to 70 % and they brought her to the ER for evaluation. Lab studies show WBC 1.2, Hgb 7.9, Platelet 97, K 3.4, Na 138, Cr 1.15, ASt 41, ALT 21, Alk phos 118, lactate 5.0, BNP 639 and troponin 17.4. ABG shows pH 7.48, pCO2 32 and pO2 71. CXR shows right upper lobe opacity. Upon admission, ER physician placed her on BIPAP and later weaned her to 3L BNC after her oxygen saturation improved. At bedside, pt is very somnolent and in no acute distress. Review of system is limited. Allergies No Known Allergies Allergy (Unverified 10/20/22 13:21) Home medications list reviewed: No - Past Medical/Surgical History Has patient received pneumonia vaccine in the past: No Diabetic: No Past Medical History: Reviewed- Non-Contributory -: Asthma -: Brain cancer -: Lung cancer -: Liver cancer -: Schizophrenia Past Surgical History: Reviewed- Non-Contributory -: Cholecystectomy -: Tumor resection - Family History Family History: Reviewed- Non-Contributory - Social History Smoking Status: Never smoker Smoking therapy provided: No Patient receptive to therapy: No Alcohol use: No CD- Drugs: No Caffeine use: No Place of Residence: Home Review of Systems is unable to be obtained Physical Examination - Physical Exam General: Alert, In no apparent distress, Oriented x1, Cooperative HEENT: Atraumatic, Normocephalic Neck: Supple, 2+ carotid pulse no bruit Respiratory: Normal air movement, Crackles/rales Cardiovascular: No edema, Normal pulses, Normal S1 S2 Capillary refill: <2 Seconds Gastrointestinal: Normal bowel sounds, Soft and benign, Non-distended Musculoskeletal: No clubbing, No swelling Integumentary: No rashes, No breakdown Neurological: Normal strength at 5/5 x4 extr, Normal tone, Sensation intact Lymphatics: No axilla or inguinal lymphadenopathy - Studies Laboratory Data (last 24 hrs) 05/21/23 05/21/23 05/21/23 20:00 20:00 20:00 WBC 1.20 L Hgb 7.9 L Hct 23.5 L Plt Count 97 L PT 12.2 INR 1.11 Sodium 138 Potassium 3.4 L BUN 9 Creatinine 1.15 H Glucose 121 H Magnesium 0.9 L* Total Bilirubin 0.3 AST 41 H ALT 21 Alkaline Phosphatase 118 H Microbiology Data (last 24 hrs): 05/21/23 20:56 Nasopharnyx Influenza Type A Antigen Screen - Final 05/21/23 20:56 Nasopharnyx Influenza Type B Antigen Screen - Final Assessment and Plan - Plan Neutropenic fever: Will place pt in isolation room. WBC is 1.2. Will continue cefepime. Consulted Oncologist. Severe sepsis 2/2 Right upper lobe pneumonia: Will continue iv vanc and cefepime and follow up blood cx. Acute resp failure with hypoxia: Due to pneumonia. Will continue 3l BNC, albuterol, prn BIPAP, iv vanc and cefepime. Lactic acidosis: Lactate is 2.6 <- 5.0. Will continue gentle IVF and trend lactate. Hypokalemia: k is 3.4. Will replete and monitor electrolytes. Magnesium level is0.9 Hypomagnesemia: Mag is 0.9. Will replete and monitor. Macrocytic anemia: Hgb is 7.9. MCV is 109. Will check vitamin and folate levels. Thrombocytopenia: Platelet is 97. Will avoid antiplatelet. Transaminitis: AST is 41, ALT 21 and alk phos is 118. Will continue gentle hydration and trend LFTs. Elevated BNP: BNP is 639. Will follow Echo Hx of metastatic cancer: Pt is currently on chemotherapy. Consulted Oncology. Hx of Asthma: Continue prn albuterol. DVT ppx: SCD Code: full Dispo: Will admit pt to the ICU Discharge Plan: Home Plan to discharge in: 72 Hours - Advance Directives Does patient have a Living Will: No Does patient have a Durable POA for Healthcare: No - Code Status/Comfort Care Code Status Assessed: Yes Code Status: Full Code
[2023-05-22 00:51] VITALS: BMI 28.1
[2023-05-22] MEDS ORDERED: ACETAMINOPHEN 325 MG TABLET PO PRN ×2 (01:00→12:44)
[2023-05-22] MEDS ORDERED: Magnesium Sulfate 2gm IVPB 2 G/50 ML BAG IV ONE ×2 (01:36→01:41)
[2023-05-22] MEDS ORDERED: ALBUTEROL 2.5 MG/3 ML NEB SOL NEB PRN (02:00)
[2023-05-22] MEDS ORDERED: POTASSIUM CL SA 10 MEQ TAB PO ONE (02:27)
[2023-05-22] MEDS ORDERED: ONDANSETRON 4 MG/2 ML VIAL IV PRN (03:00)
[2023-05-22] MEDS ORDERED: MAGNESIUM 50% 3 GM in NA CHLORIDE 0.9% 100 ML IV ONE (04:12)
[2023-05-22 04:54] LABS: Absolute Lymphocytes (CBC) 0.3 K/uL (0.7-4.9); Hematocrit 21.3 % (36.0-45.0); Lymphocytes % 15.8 % (15.3-44.8); MCV 109.3 fL (80-100); MPV 9.5 fL (7.6-11.3); Platelets 74 thou/uL (152-406); RBC Red Blood Cell Count 1.95 M/uL (3.86-4.86)
[2023-05-22 05:00] LABS: Magnesium 1.8 mg/dL (1.6-2.4); Potassium 3.6 mEq/L (3.5-5.1)
[2023-05-22] MEDS ORDERED: MAGNESIUM SULFATE 1 gm IVPB 1 GM/100 ML BAG IV ONE (06:21)
[2023-05-22] MEDS ORDERED: POTASSIUM 25 MEQ EFFERV TAB PO ONE (07:00)
[2023-05-22] MEDS ORDERED: HOME MED 1 EA UNK (Albuterol Sulfate [Proair Respiclick] 90 MCG Aer.Pow.Ba) PO PRN (12:31)
[2023-05-22] MEDS ORDERED: DIPHENOX PO PRN (12:31)
[2023-05-22] MEDS ORDERED: PROMETHAZINE 25 MG TABLET PO PRN (12:31)
[2023-05-22] MEDS ORDERED: HOME MED 1 EA UNK (Ondansetron [Ondansetron Odt] 8 MG Tab.Rapdis) PO PRN (12:31)
[2023-05-22] MEDS ORDERED: MAGIC MOUTHWASH 180 ML BTL PO PRN (12:31)
[2023-05-22] MEDS ORDERED: ATROPINE PO PRN (12:31)
[2023-05-22] MEDS ORDERED: DICLOFENAC SODIUM TOP PRN (12:31)
[2023-05-22] MEDS ORDERED: HYDROCODONE/APAP 10/325 TAB PO PRN (12:31)
[2023-05-22] MEDS ORDERED: ACETAMINOPHEN WITH CODEINE PO PRN (12:31)
[2023-05-22] MEDS ORDERED: HOME MED 1 EA UNK (Acetaminophen [Tylenol Arthritis] 650 MG Tablet.Er) PO PRN (12:31)
[2023-05-22] MEDS ORDERED: DEXAMETHASONE 4 MG PO SCH (12:45)
[2023-05-22] MEDS ORDERED: ONDANSETRON 4 MG (ODT) TAB PO PRN (12:48)
[2023-05-22] MEDS ORDERED: CODEINE 30MG/APAP 300MG TAB PO PRN (12:50)
[2023-05-22] MEDS ORDERED: dexAMETHasone 4 MG TAB PO SCH (13:00)
[2023-05-22] MEDS: levETIRAcetam 500 MG TAB PO SCH ×2 (13:02→21:05)
[2023-05-22] MEDS ORDERED: DIPHENOX/ATROP SULF 1 TAB PO PRN (13:03)
[2023-05-22] MEDS ORDERED: ALBUTEROL INHALER 60 PUFF/8 GM IH PRN (13:08)
[2023-05-22] MEDS ORDERED: HOME MED 1 EA UNK (Quetiapine Fumarate [Seroquel] 300 MG Tablet) PO SCH (21:00)
[2023-05-22] MEDS: QUETIAPINE 100MG TAB PO SCH (21:05)
[2023-05-23] MEDS: LEVOTHYROXINE SOD 0.075 MG TAB PO SCH (05:47)
[2023-05-23] MEDS ORDERED: Multi-VIT(Centravite Senior) 1 TAB TAB ONE (08:06)
[2023-05-23] MEDS: levETIRAcetam 500 MG TAB PO SCH ×2 (08:21→20:04)
[2023-05-23] MEDS: Multi-VIT(Centravite Senior) 1 TAB TAB PO SCH (08:21)
[2023-05-23] MEDS: PARoxetine HCL 10 MG TAB PO SCH (08:22)
[2023-05-23] MEDS: MIRTAZAPINE 15 MG TAB PO SCH (08:22)
[2023-05-23] MEDS: RISPERIDONE 1 MG TABLET PO SCH (08:22)
[2023-05-23] MEDS: DIVALPROEX DR 500MG TAB PO SCH (08:22)
[2023-05-23] MEDS: FOLIC ACID 1 MG TABLET PO SCH (08:22)
[2023-05-23] MEDS: CYANOCOBALAMIN 1,000 MCG TAB PO SCH (08:23)
[2023-05-23 08:56] LABS: Albumin 1.9 g/dL (3.4-5.0); Bilirubin Total 0.3 mg/dL (0.2-1.0); Magnesium 1.7 mg/dL (1.6-2.4); Phosphorus 2.6 mg/dL (2.5-4.9); Potassium 4.2 mEq/L (3.5-5.1); Protein, Total 5.7 g/dL (6.4-8.2)
[2023-05-23] MEDS ORDERED: RISPERIDONE 3 MG PO SCH (09:00)
[2023-05-23] MEDS ORDERED: IRON PO SCH (09:00)
[2023-05-23] MEDS ORDERED: HOME MED 1 EA UNK (Folic Acid [Folic Acid] 0.8 MG Capsule) PO SCH (09:00)
[2023-05-23] MEDS ORDERED: FOLIC ACID PO SCH (09:00)
[2023-05-23] MEDS ORDERED: MULTIVIT MIN PO SCH (09:00)
[2023-05-23] MEDS ORDERED: HOME MED 1 EA UNK (Mirtazapine [Mirtazapine] 45 MG Tablet) PO SCH (09:00)
[2023-05-23] MEDS ORDERED: PAROXETINE HCL 30 MG PO SCH (09:00)
[2023-05-23] MEDS ORDERED: [UNRECOGNIZED DRUG - OTHER] PO SCH (09:00)
[2023-05-23] MEDS: HOME MED (Fluticasone/Umeclidin/Vilanter [Trelegy Ellipta 100-62.5-25] Blst.W.Dev IH SCH (09:00)
[2023-05-23] MEDS ORDERED: CYANOCOBALAMIN 1000 MCG PO SCH (09:00)
[2023-05-23 12:11] LABS: Absolute Lymphocytes (CBC) 0.4 K/uL (0.7-4.9); Hematocrit 22.8 % (36.0-45.0); Lymphocytes % 11.8 % (15.3-44.8); MCV 109.8 fL (80-100); MPV 10.3 fL (7.6-11.3); Platelets 80 thou/uL (152-406); RBC Red Blood Cell Count 2.08 M/uL (3.86-4.86)
--- NOTE | 2023-05-23 13:27 | EKG ---
Test Date: 2023-05-21 Test Time: 20:07:47 Stable Manager: KESHAWN MEASUREMENT RESULTS: Intervals: Rate: 124 MA: 142 QRSD: 66 QT: 280 QTc: 402 [place]: P: 67 MA: 142 QRS: 100 T: 108 INTERPRETIVE STATEMENTS: Sinus tachycardia Rightward axis Nonspecific T wave abnormality Abnormal ECG Compared to ECG 04/11/2023 14:42:17 Sinus rhythm no longer present Atrial premature complex(es) no longer present T-wave abnormality still present Electronically Signed On 05-23-23 13:23:59 GENERAL OFFICE ASSOCIATE by Gera Hawkins
[2023-05-23] MEDS: IPRATROPIUM BROM 0.5MG/2.5ML NEB PRN (14:58)
[2023-05-23] MEDS: METHYLPREDNISOLONE 125 MG INJ IV SCH (18:01)
[2023-05-23] MEDS: QUETIAPINE 100MG TAB PO SCH (20:04)
[2023-05-24] MEDS: METHYLPREDNISOLONE 125 MG INJ IV SCH ×4 (00:15→17:52)
[2023-05-24 03:12] LABS: Absolute Lymphocytes (CBC) 0.3 K/uL (0.7-4.9); Hematocrit 22.2 % (36.0-45.0); Lymphocytes % 9.2 % (15.3-44.8); MCV 109.2 fL (80-100); MPV 10.2 fL (7.6-11.3); Platelets 106 thou/uL (152-406); RBC Red Blood Cell Count 2.03 M/uL (3.86-4.86)
[2023-05-24 03:36] LABS: Potassium 4.1 mEq/L (3.5-5.1)
[2023-05-24 03:40] LABS: Magnesium 1.3 mg/dL (1.6-2.4); Valproic Acid (Depakene) Level 81.1 mcg/mL (50.0-100.0)
[2023-05-24] MEDS: LEVOTHYROXINE SOD 0.075 MG TAB PO SCH (06:13)
--- NOTE | 2023-05-24 08:56 | P.PN ---
Subjective Date of Service: 05/24/23 Chief Complaint: Shortness of breath on 3 liters, 96% she reports feeling better, no reported fever, reports history of lung CA, shortness of breath worse with exertion, - Physical Exam General: Alert, In no apparent distress, Oriented x1, Cooperative HEENT: Atraumatic, Normocephalic Neck: Supple, 2+ carotid pulse no bruit Respiratory: Normal air movement, diminished Cardiovascular: No edema, Normal pulses, Normal S1 S2 Capillary refill: <2 Seconds Gastrointestinal: Normal bowel sounds, Soft and benign, Non-distended Musculoskeletal: No clubbing, No swelling Integumentary: No rashes, No breakdown Neurological: Normal strength at 5/5 x4 extr, Normal tone, Sensation intact Lymphatics: No axilla or inguinal lymphadenopathy <Gabriela Martinez - Last Filed: 05/24/23 13:25> Date of Service: 05/25/23 <Ian Arthur - Last Filed: 05/25/23 09:44> Review of Systems per HPI <Gabriela Martinez - Last Filed: 05/24/23 13:25> Physical Examination - Vital Signs Temperature: 97.8 F Blood Pressure: 117/62 Pulse: 88 Respirations: 18 Pulse Ox (%): 96 - Studies Laboratory Data (last 24 hrs) 05/23/23 05/23/23 11:55 08:30 WBC 3.00 L Hgb 7.7 L Hct 22.8 L Plt Count 80 L Sodium 142 Potassium 4.2 BUN 14 Creatinine 0.82 Glucose 78 Phosphorus 2.6 Magnesium 1.7 Total Bilirubin 0.3 AST 24 ALT 18 Alkaline Phosphatase 100 <Gabriela Martinez - Last Filed: 05/24/23 13:25> Assessment And Plan - Plan -Assessment plan Neutropenic fever: Severe sepsis 2/2 Right upper lobe pneumonia: Acute resp failure with hypoxia: Due to pneumonia. Hx of metastatic cancer: Hx of Asthma: Continue prn albuterol. Pt is currently on chemotherapy. Consulted Oncology. Will place pt in isolation room. WBC is 1.2. Will continue cefepime. Consulted Oncologist. Will continue iv vanc and cefepime and follow up blood cx. Lactic acidosis: Lactate is 2.6 <- 5.0. Will continue gentle IVF and trend lactate. Hypokalemia: k is 3.4. Will replete and monitor electrolytes. Magnesium level is0.9 Hypomagnesemia: Mag is 0.9. Will replete and monitor. Macrocytic anemia: Hgb is 7.9. MCV is 109. Will check vitamin and folate levels. Thrombocytopenia: Platelet is 97. Will avoid antiplatelet. Transaminitis: AST is 41, ALT 21 and alk phos is 118. Will continue gentle hydration and trend LFTs. Elevated BNP: BNP is 639. Will follow Echo DVT ppx: SCD Code: full Dispo: Will admit pt to the ICU, transfer to floor when stable - Code Status/Comfort Care Code Status: Full Code Critical Care: No Time Spent Managing PTS Care (In Minutes): 35 <Gabriela Martinez - Last Filed: 05/24/23 13:25> - Plan Patient was seen and examined. Chart has been reviewed. Plan of care as mentioned below. Assessment/plan: 1. Patient with neutropenic fever secondary to right upper lobe pneumonia; patient with hypoxemia - continue with neb treatments and IV antibiotic therapy. Patient's cultures are negative. Patient is clinically doing better. Patient's chest x-ray with no significant infiltrates. Continue with current plan of care at this time. 2. Hypomagnesemia/hypokalemia; supplement electrolytes 3. Patient with lactic acidosis; continue with IV fluids 4. Thrombocytopenia; platelets are stable 5. GI/DVT prophylaxis Plan at this time is to discharge patient home over the next 24-48 hours. We will arrange for home oxygen. We are also getting her out of bed and ambulating. Patient will probably benefit from home health with physical therapy. Anticipate discharge over the next 1-2 days. <Ian Arthur - Last Filed: 05/25/23 09:44>
[2023-05-24] MEDS: HOME MED (Fluticasone/Umeclidin/Vilanter [Trelegy Ellipta 100-62.5-25] Blst.W.Dev IH SCH (09:00)
[2023-05-24] MEDS ORDERED: Magnesium Sulfate 2gm IVPB 2 G/50 ML BAG IV ONE (09:00)
[2023-05-24] MEDS: Multi-VIT(Centravite Senior) 1 TAB TAB PO SCH (09:46)
[2023-05-24] MEDS: RISPERIDONE 1 MG TABLET PO SCH (09:46)
[2023-05-24] MEDS: PARoxetine HCL 10 MG TAB PO SCH (09:46)
[2023-05-24] MEDS: FOLIC ACID 1 MG TABLET PO SCH (09:47)
[2023-05-24] MEDS: CYANOCOBALAMIN 1,000 MCG TAB PO SCH (09:47)
[2023-05-24] MEDS: levETIRAcetam 500 MG TAB PO SCH ×2 (09:47→21:02)
[2023-05-24] MEDS: DIVALPROEX DR 500MG TAB PO SCH (09:47)
[2023-05-24] MEDS: MIRTAZAPINE 15 MG TAB PO SCH (09:48)
--- NOTE | 2023-05-24 10:10 | RAD REPORT ---
EXAM DESCRIPTION: RAD - Chest Single View - 05/24/2023 6:24 am CLINICAL HISTORY: pneumonia Chest pain. COMPARISON: Chest Single View dated 05/21/2023; Chest Single View dated 04/11/2023; Chest Single View dated 11/13/2022; Chest Single View dated 11/06/2022; Chest For Pe Angio dated 04/11/2023 FINDINGS: Portable technique limits examination quality. There has been significant worsening of lung consolidation involving the right mid and lower lung sin ce comparative study. Bilateral interstitial prominence is also present. The heart is normal in size. No displaced fractures.Small bilateral pleural effusions suspected. IMPRESSION: Significant worsening in right lung consolidation is seen since 05/21/2023.
[2023-05-24] MEDS: ALBUTEROL 2.5 MG/3 ML NEB SOL NEB PRN (17:00)
[2023-05-24] MEDS: IPRATROPIUM BROM 0.5MG/2.5ML NEB PRN (17:00)
[2023-05-24] MEDS ORDERED: NA CHLORIDE 0.9% 1,000 ML IV ONE (20:28)
[2023-05-24] MEDS: QUETIAPINE 100MG TAB PO SCH (21:02)
[2023-05-25] MEDS: METHYLPREDNISOLONE 125 MG INJ IV SCH ×4 (00:57→17:10)
[2023-05-25 03:31] LABS: Magnesium 1.9 mg/dL (1.6-2.4); Potassium 3.9 mEq/L (3.5-5.1)
[2023-05-25] MEDS: LEVOTHYROXINE SOD 0.075 MG TAB PO SCH (06:33)
[2023-05-25] MEDS ORDERED: FUROSEMIDE 40 MG/4 ML VIAL IV ONE (08:30)
--- NOTE | 2023-05-25 08:34 | P.PN ---
Subjective Date of Service: 05/25/23 <Ian Arthur - Last Filed: 05/25/23 09:44> Date of Service: 05/25/23 Chief Complaint: Shortness of breath on 3 liters, 96% she reports feeling better, no reported fever, reports history of lung CA, shortness of breath worse with exertion, No reported home O2 - Physical Exam General: Alert, In no apparent distress, Oriented x1, Cooperative HEENT: Atraumatic, Normocephalic Neck: Supple, 2+ carotid pulse no bruit Respiratory: Normal air movement, diminished Cardiovascular: No edema, Normal pulses, Normal S1 S2 Capillary refill: <2 Seconds Gastrointestinal: Normal bowel sounds, Soft and benign, Non-distended Musculoskeletal: No clubbing, No swelling Integumentary: No rashes, No breakdown Neurological: Normal strength at 5/5 x4 extr, Normal tone, Sensation intact Lymphatics: No axilla or inguinal lymphadenopathy <Gabriela Martinez - Last Filed: 05/25/23 15:02> Review of Systems per HPI <Gabriela Martinez - Last Filed: 05/25/23 15:02> Physical Examination - Vital Signs Temperature: 97.2 F Blood Pressure: 120/69 Pulse: 96 Respirations: 18 Pulse Ox (%): 92 <Gabriela Martinez - Last Filed: 05/25/23 15:02> Assessment And Plan - Plan Patient was seen and examined. Chart has been reviewed. Plan of care as mentioned below. Assessment/plan: 1. Patient with neutropenic fever secondary to right upper lobe pneumonia; patient with hypoxemia - continue with neb treatments and IV antibiotic therapy. Patient's cultures are negative. Patient is clinically doing better. Patient's chest x-ray with no significant infiltrates. Arrange for DC planning 2. Hypomagnesemia/hypokalemia; supplement electrolytes 3. Patient with lactic acidosis; continue with IV fluids 4. Thrombocytopenia; platelets are stable 5. GI/DVT prophylaxis Plan at this time is to discharge patient home over the next 24-48 hours. We will arrange for home oxygen. We are also getting her out of bed and ambulating. Patient will probably benefit from home health with physical therapy. Anticipate discharge over the next 1-2 days. <Ian Arthur - Last Filed: 05/25/23 09:44> - Plan -Assessment plan Neutropenic fever: Severe sepsis 2/2 Right upper lobe pneumonia: Acute resp failure with hypoxia: Due to pneumonia. Hx of metastatic cancer: Hx of Asthma: Continue prn albuterol. Pt is currently on chemotherapy. Consulted Oncology. Will place pt in isolation room. WBC is 1.2. Will continue cefepime. Consulted Oncologist. Will continue iv vanc and cefepime and follow up blood cx. Evaluate for home O2 ambulations Elevated BNP 07732, 4587 trend BnP Lasix,ordered bid Lactic acidosis: Lactate is 2.6 <- 5.0. Will continue gentle IVF and trend lactate. Procalcitonin 7.69 Hypokalemia: k is 3.4. Will replete and monitor electrolytes. Magnesium level 0.9 Hypomagnesemia: Mag is 0.9. Will replete and monitor. Hypocalcemia 8.1-8.2, 8.4 Macrocytic anemia: Hgb is 7.9-7.5- . MCV is 109. Will check vitamin and folate levels. Hemoglobin 6.9 repeat H&H, type and cross transfuse if hemoglobin less than 7 Thrombocytopenia: Platelet is 97. Will avoid antiplatelet. Transaminitis: AST is 41, ALT 21 and alk phos is 118. Will continue gentle hydration and trend LFTs. DVT ppx: SCD Code: full Dispo: Will admit pt to the ICU, transfer to floor when stable Discharge Plan: Home - Code Status/Comfort Care Code Status: Full Code Critical Care: No Time Spent Managing PTS Care (In Minutes): 35 <Gabriela Martinez - Last Filed: 05/25/23 15:02>
[2023-05-25] MEDS ORDERED: POTASSIUM CL SA 10 MEQ TAB PO ONE (09:00)
[2023-05-25] MEDS: HOME MED (Fluticasone/Umeclidin/Vilanter [Trelegy Ellipta 100-62.5-25] Blst.W.Dev IH SCH (09:00)
[2023-05-25 09:43] LABS: Absolute Lymphocytes (CBC) 0.3 K/uL (0.7-4.9); Hematocrit 20.6 % (36.0-45.0); MCV 109.6 fL (80-100); Platelets 102 thou/uL (152-406); RBC Red Blood Cell Count 1.88 M/uL (3.86-4.86)
[2023-05-25 09:57] LABS: Bilirubin Total 0.2 mg/dL (0.2-1.0); Magnesium 1.8 mg/dL (1.6-2.4); Potassium 4.3 mEq/L (3.5-5.1); Protein, Total 5.7 g/dL (6.4-8.2)
[2023-05-25 10:22] LABS: Blood Morphology Comment NOTED (NOT SEEN); Macrocytosis 1+; Platelet Estimate DECR
[2023-05-25] MEDS: RISPERIDONE 1 MG TABLET PO SCH (11:09)
[2023-05-25] MEDS: Multi-VIT(Centravite Senior) 1 TAB TAB PO SCH (11:10)
[2023-05-25] MEDS: DIVALPROEX DR 500MG TAB PO SCH (11:10)
[2023-05-25] MEDS: CEFEPIME 2 GM in NA CHLORIDE 0.9% 100 ML IV SCH ×2 (11:11→20:38)
[2023-05-25] MEDS: levETIRAcetam 500 MG TAB PO SCH ×2 (11:11→20:38)
[2023-05-25] MEDS: CYANOCOBALAMIN 1,000 MCG TAB PO SCH (11:12)
[2023-05-25] MEDS: PARoxetine HCL 10 MG TAB PO SCH (11:12)
[2023-05-25] MEDS: MIRTAZAPINE 15 MG TAB PO SCH (11:12)
[2023-05-25] MEDS: FOLIC ACID 1 MG TABLET PO SCH (11:12)
[2023-05-25] MEDS ORDERED: FUROSEMIDE 40 MG/4 ML VIAL ONE (11:22)
[2023-05-25] MEDS: BENZONATATE 100 MG CAP PO PRN ×2 (11:24→20:53)
[2023-05-25 15:31] LABS: Hematocrit 21.7 % (36.0-45.0)
[2023-05-25] MEDS ORDERED: FUROSEMIDE 20 MG/ 2ML VIAL IV PRN (16:42)
[2023-05-25] MEDS ORDERED: FUROSEMIDE 40 MG/4 ML VIAL IV SCH (17:00)
[2023-05-25] MEDS ORDERED: FUROSEMIDE 20 MG/ 2ML VIAL IV SCH (17:00)
[2023-05-25 17:04] LABS: Absolute Lymphocytes (CBC) 0.3 K/uL (0.7-4.9); Hematocrit 21.6 % (36.0-45.0); Lymphocytes % 6.9 % (15.3-44.8); MCV 109.5 fL (80-100); MPV 10.6 fL (7.6-11.3); Platelets 96 thou/uL (152-406); RBC Red Blood Cell Count 1.97 M/uL (3.86-4.86)
[2023-05-25] MEDS: FUROSEMIDE 20 MG TABLET PO SCH (17:09)
[2023-05-25 18:17] LABS: Blood Morphology Comment NOTED (NOT SEEN); Hypochromasia 1+; Macrocytosis 1+; Platelet Estimate DECR; White Blood Cell Scan OK (OK)
[2023-05-25 18:18] LABS: Polychromasia 1+
[2023-05-25] MEDS: IPRATROPIUM BROM 0.5MG/2.5ML NEB PRN (19:50)
[2023-05-25] MEDS: ALBUTEROL 2.5 MG/3 ML NEB SOL NEB PRN (19:50)
[2023-05-25] MEDS: QUETIAPINE 100MG TAB PO SCH (20:38)
[2023-05-26] MEDS: METHYLPREDNISOLONE 125 MG INJ IV SCH ×3 (00:53→13:43)
[2023-05-26] MEDS: ALBUTEROL 2.5 MG/3 ML NEB SOL NEB PRN (01:39)
[2023-05-26] MEDS: IPRATROPIUM BROM 0.5MG/2.5ML NEB PRN (01:39)
[2023-05-26 03:19] LABS: Absolute Lymphocytes (CBC) 0.5 K/uL (0.7-4.9); Lymphocytes % 11.5 % (15.3-44.8); MCV 109.4 fL (80-100); MPV 9.7 fL (7.6-11.3); Platelets 98 thou/uL (152-406); RBC Red Blood Cell Count 1.92 M/uL (3.86-4.86)
[2023-05-26 03:27] LABS: Protime INR 1.03
[2023-05-26 05:07] LABS: Albumin 2.1 g/dL (3.4-5.0); Bilirubin Total 0.2 mg/dL (0.2-1.0); Magnesium 1.7 mg/dL (1.6-2.4); Potassium 3.7 mEq/L (3.5-5.1); Protein, Total 6.2 g/dL (6.4-8.2)
[2023-05-26] MEDS: LEVOTHYROXINE SOD 0.075 MG TAB PO SCH (06:49)
[2023-05-26 07:44] LABS: Blood Morphology Comment NOTED (NOT SEEN); Platelet Estimate DECR; Toxic Granulation 2+
[2023-05-26 07:45] LABS: Macrocytosis 1+; Polychromasia 1+
[2023-05-26] MEDS ORDERED: MAGNESIUM SULFATE 1 gm IVPB 1 GM/100 ML BAG IV ONE (08:00)
[2023-05-26] MEDS ORDERED: POTASSIUM CL SA 10 MEQ TAB PO ONE (09:00)
[2023-05-26] MEDS: HOME MED (Fluticasone/Umeclidin/Vilanter [Trelegy Ellipta 100-62.5-25] Blst.W.Dev IH SCH (09:00)
[2023-05-26 09:23] VITALS: O2SAT 95
[2023-05-26] MEDS: MIRTAZAPINE 15 MG TAB PO SCH (09:44)
[2023-05-26] MEDS: CEFEPIME 2 GM in NA CHLORIDE 0.9% 100 ML IV SCH (09:44)
[2023-05-26] MEDS: RISPERIDONE 1 MG TABLET PO SCH (09:44)
[2023-05-26] MEDS: FUROSEMIDE 20 MG TABLET PO SCH (09:44)
[2023-05-26] MEDS: FOLIC ACID 1 MG TABLET PO SCH (09:45)
[2023-05-26] MEDS: levETIRAcetam 500 MG TAB PO SCH (09:45)
[2023-05-26] MEDS: Multi-VIT(Centravite Senior) 1 TAB TAB PO SCH (09:45)
[2023-05-26] MEDS: CYANOCOBALAMIN 1,000 MCG TAB PO SCH (09:45)
[2023-05-26] MEDS: DIVALPROEX DR 500MG TAB PO SCH (09:45)
[2023-05-26] MEDS: BENZONATATE 100 MG CAP PO PRN (09:49)
[2023-05-26] MEDS: PARoxetine HCL 10 MG TAB PO SCH (10:21)
[2023-05-26] MEDS ORDERED: NA CHLORIDE 0.9% 250 ML ONE (12:49)
[2023-05-26 16:51] VITALS: BP 158/86; TEMP 98.5
[2023-05-26] MEDS ORDERED: METOPROLOL TAR 25 MG TAB PO ONE (17:00)
[2023-05-26 17:07] LABS: Hematocrit 25.7 % (36.0-45.0)
== END 2023-05-26 18:00 | disposition home health service (06) | DRG 871 ==
LOC: ER 19:37 → ERHOLD 22:27 → 3RD-ICU 23:40 → OBSVTOIN 05-23 13:28 → 2ND 05-23 17:46
PROVIDERS: ADMIT Hospitalist; ATTEND Hospitalist
PROC: 5A09357 Assistance with Respiratory Ventilation, Less than 24 Consecutive Hours, Continuous Positive Airway Pressure (ICD-10-PCS; principal; 2023-05-23)
PROC: 30233N1 Transfusion of Nonautologous Red Blood Cells into Peripheral Vein, Percutaneous Approach (ICD-10-PCS; 2023-05-26)
DX: A41.9 Sepsis, unspecified organism (principal); J18.9 Pneumonia, unspecified organism; J96.01 Acute respiratory failure with hypoxia; C34.90 Malignant neoplasm of unspecified part of unspecified bronchus or lung; C79.31 Secondary malignant neoplasm of brain; E87.20 Acidosis, unspecified; D70.3 Neutropenia due to infection; R65.20 Severe sepsis without septic shock; E83.42 Hypomagnesemia; E83.51 Hypocalcemia; E87.6 Hypokalemia; D50.9 Iron deficiency anemia, unspecified; D69.6 Thrombocytopenia, unspecified; J45.909 Unspecified asthma, uncomplicated; R74.01 Elevation of levels of liver transaminase levels; R79.89 Other specified abnormal findings of blood chemistry; R50.81 Fever presenting with conditions classified elsewhere; Z11.52 Encounter for screening for COVID-19; Z90.49 Acquired absence of other specified parts of digestive tract
CPT/HCPCS: 36415; 36600; 71045; 80048; 80053; 80076; 80164; 82607; 82728; 82746; 82805; 83540; 83605; 83735; 83880; 84100; 84145; 84484; 85014; 85018; 85025; 85044; 85610; 85730; 86850; 86900; 86901; 86920; 87040; 87804; 87811; 93005; 94640; 94660; 99285; G0378; J0692; J1940; J2405; J2930; J3475; J7030; J7040; J7050; J7613; J7644; P9016

== ENCOUNTER 2023-09-01 12:24 | Emergency (ER) | payer MEDICARE ==
[2023-09-01] MEDS ORDERED: LEVALBUTEROL 1.25 MG/3 ML NEB ONE ×2 (13:13→14:33)
--- NOTE | 2023-09-01 13:30 | RAD REPORT ---
EXAM DESCRIPTION: RAD - Chest Single View - 09/01/2023 1:20 pm CLINICAL HISTORY: hypoxemia Chest pain. COMPARISON: Chest Single View dated 05/24/2023; Chest Single View dated 05/21/2023; Chest Single View dated 04/11/2023; Chest Single View dated 11/13/2022; Chest For Pe Angio dated 04/11/2023 FINDINGS: Portable technique limits examination quality. Hazy infiltrate pattern is seen in the right lower lobe with small to moderate right pleural effusion . This appearance less prominent compared to 05/24/2023 study. Small right upper lobe pulmonary nodul e again noted, unchanged. Small/trace left pleural effusion with atelectasis in left lung base. The h eart is mildly enlarged.
[2023-09-01 14:40] LABS: Absolute Lymphocytes (CBC) 0.3 K/uL (0.7-4.9); Absolute Monocytes 0.6 K/uL (0.1-1.3); Basophils % 0.3 % (0-1.3); Hematocrit 29.4 % (36.0-45.0); Hemoglobin 9.4 g/dL (12.0-15.0); Lymphocytes % 10.3 % (15.3-44.8); MCH 31.3 pg (27.0-35.0); MCHC 31.8 g/dL (32.0-36.0); MCV 98.3 fL (80-100); MPV 9.1 fL (7.6-11.3); Monocytes % 20.8 % (3.3-12.3); Neutrophils % 68.6 % (41.7-73.7); Platelets 88 thou/uL (152-406); RBC Red Blood Cell Count 2.99 M/uL (3.86-4.86); Red Cell Distribution Width 18.3 % (12.1-15.2)
[2023-09-01 14:59] LABS: PT Prothrombin Time 11.6 SECONDS (9.5-12.5); PTT, Activated Partial Thromb 28.8 SECONDS (24.3-36.9); Protime INR 1.06
[2023-09-01 15:02] LABS: Albumin 2.3 g/dL (3.4-5.0); Albumin/Globulin Ratio 0.5 (1.1-1.8); Anion Gap 5.3 mEq/L (5.0-15.0); Bilirubin Total 0.3 mg/dL (0.2-1.0); Globulin 4.7 g/dL (2.3-3.5); Potassium 4.3 mEq/L (3.5-5.1)
--- NOTE | 2023-09-01 16:28 | RAD REPORT ---
EXAM DESCRIPTION: CT - Chest For Pe Angio - 09/01/2023 4:19 pm CLINICAL HISTORY: Chest pain. DYSPNEA COMPARISON: Chest For Pe Angio dated 04/11/2023 TECHNIQUE: CT angiogram of the pulmonary arteries was performed with MIP. All CT scans are performed using dose optimization technique as appropriate and may include automated exposure control or mA/KV adjustment according to patient size. FINDINGS: No evidence of pulmonary thromboembolism. No acute aortic finding demonstrated. Bilateral pulmonary opacities are present in both lung bases, greater on the right. There is endobron chial opacities in tree-in-bud opacities as well in the right lung base. Mildly enlarged soft tissue in the mediastinum and hilar regions likely lymphadenopathy. Small loculated left pleural effusion. Moderate right pleural fluid also loculated. Vague low-density lesion measuring 17 mm in the liver, incompletely assessed. IMPRESSION: No evidence of pulmonary thromboembolism. Bibasilar lung opacities and tree-in-bud opacities with bilateral loculated pleural effusions, greate r on the right. This could be related to underlying infection or malignancy. Incompletely assessed 17 mm lesion in the liver. MRI liver protocol would be useful for further evalu ation.
--- NOTE | 2023-09-01 16:46 | EDPHYS ---
Physician Documentation [facility] Name: Maite Severino Age: 63 yrs Sex: Female : 1960 Arrival Date: 09/01/2023 Time: 12:24 Bed 19 Private MD: ED Physician Madan Butts HPI: 08/31 15:28 This 63 yrs old Female presents to ER via Wheelchair with complaints of Low Oxygen rn Levels. 15:28 The patient has shortness of breath at rest, with light activity. Onset: The rn symptoms/episode began/occurred at an unknown time. The patient's shortness of breath is aggravated by exertion, light activity, talking. Associated signs and symptoms: Pertinent positives: non-productive cough, Pertinent negatives: fever, hemoptysis. Severity of symptoms: At their worst the symptoms were moderate in the emergency department the symptoms are unchanged. The patient has experienced similar episodes in the past. Patient and son report increased shortness of breath and low oxygen levels. Has a history of lung cancer and effusions with intermittent drainage. Last thoracentesis was 3 months ago. No fever but does report feeling cold recently and son states seems slightly confused.. Historical: - Allergies: 12:55 No Known Allergies; as6 - PMHx: 12:55 Asthma; BRAIN TUMOR; Lung Cancer; Schizophrenia; as6 - PSHx: 12:55 Cholecystectomy; tunor removal; as6 - Immunization history:: Adult Immunizations up to date. - Infectious Disease History:: Denies. - Social history:: Smoking status: Patient denies any tobacco usage or history of. - Family history:: not pertinent. - Hospitalizations: : No recent hospitalization is reported. ROS: 15:28 Constitutional: Negative for fever, chills, and weight loss, Cardiovascular: Negative rn for chest pain, palpitations, and edema, Respiratory: Positive for shortness of breath and cough Abdomen/GI: Negative for abdominal pain, nausea, vomiting, diarrhea, and constipation, MS/Extremity: Negative for injury and deformity, Skin: Negative for injury, rash, and discoloration, Neuro: Positive for generalized weakness Exam: 15:28 Constitutional: This is a well developed, well nourished patient who is awake, alert, rn mild to moderate tachypnea Head/Face: Normocephalic, atraumatic. ENT: Dry mucous membranes, no stridor Cardiovascular: Tachycardic, regular. No pulse deficits. Respiratory: Moderate tachypnea, diminished bilateral bases Abdomen/GI: Soft, non-tender Skin: Warm, dry Neuro: Awake and alert, GCS 15, oriented to person, place, time, and situation. Motor strength 4/5 in all extremities. Sensory grossly intact. Inappropriate laughter at times Vital Signs: 12:54 BP 144 / 88; Pulse 109; Resp 23 S; Temp 98.3(O); Pulse Ox 94% on 4 lpm NC; Weight 68.04 as6 kg (R); Height 5 ft. 0 in. (R); Pain 0/10; 13:45 BP 139 / 77; Pulse 104; Resp 24; Pulse Ox 100% on 4 lpm NC; ph 14:45 BP 144 / 85; Pulse 104; Resp 22; Pulse Ox 98% on 4 lpm NC; ph 16:00 BP 135 / 87; Pulse 103; Resp 24; Pulse Ox 99% on 4 lpm NC; ph 17:00 BP 128 / 78; Pulse 103; Resp 24; Pulse Ox 98% on 4 lpm NC; ph 18:00 BP 136 / 78; Pulse 106; Resp 22; Pulse Ox 100% on 4 lpm NC; ph 19:00 BP 124 / 104; Pulse 106; Resp 23; Pulse Ox 98% on 2 lpm NC; jj7 20:00 BP 147 / 89; Pulse 102; Resp 22; Pulse Ox 94% on 2 lpm NC; jj7 21:00 BP 137 / 87; Pulse 102; Resp 21; Pulse Ox 96% on 4 lpm NC; jj7 22:11 BP 139 / 86; Pulse 97; Resp 16; Temp 98.9; Pulse Ox 97% 3 lpm ; jj7 12:54 Body Mass Index 29.29 (68.04 kg, 152.4 cm) as6 12:54 Pain Scale: Adult as6 MDM: 12:38 Patient medically screened. rn 16:44 Differential diagnosis: pneumonia, Pneumothorax pulmonary edema, Pulmonary Embolism. rn Data reviewed: vital signs, nurses notes, lab test result(s), radiologic studies, CT scan, plain films, and as a result, I will admit patient. Consideration of Admission/Observation Patient was admitted/placed on observation. Escalation of care including admission/observation considered. Counseling: I had a detailed discussion with the patient and/or guardian regarding the historical points, exam findings, and any diagnostic results supporting the discharge/admit diagnosis, lab results, radiology results, the need for further work-up and treatment in the hospital, the need to transfer to another facility. ED course: Patient with bilateral opacities and loculated pleural effusions. Family prefers transfer to [facility] given all her care there. Will attempt transfer to [facility].. 16:46 ED course: Home health nurse reports desaturation to 60's with exertion. rn 16:50 ED course: [facility] declines transfer due to lack of beds. Will transfer to [facility] facility. Patient states she is okay going to [facility].. 17:21 ED course: Accepted for transfer to [facility].. rn 08/31 13:06 Order name: Blood Culture Adult (2) rn 08/31 13:06 Order name: CBC with Diff; Complete Time: 19:13 rn 08/31 13:06 Order name: CMP; Complete Time: 15:27 rn 08/31 13:06 Order name: Lactate w/ 2H reflex if indic.; Complete Time: 15:27 rn 08/31 13:06 Order name: Protime (+inr); Complete Time: 15:27 rn 08/31 13:06 Order name: Ptt, Activated; Complete Time: 15:27 rn 08/31 13:07 Order name: BNP; Complete Time: 15:27 rn 08/31 16:57 Order name: SARS-COV-2 Antigen Rapid; Complete Time: 19:13 bd 08/31 17:48 Order name: Manual Differential; Complete Time: 19:13 EDMS 08/31 12:38 Order name: XRAY Chest (1 view); Complete Time: 14:49 rn 08/31 15:28 Order name: CT Chest For PE Angio; Complete Time: 16:30 rn 08/31 13:06 Order name: EKG; Complete Time: 13:07 rn 08/31 13:06 Order name: Accucheck; Complete Time: 14:43 rn 08/31 13:06 Order name: Cardiac monitoring; Complete Time: 14:43 rn 08/31 13:06 Order name: EKG - Nurse/Tech; Complete Time: 14:42 rn 08/31 13:06 Order name: IV Saline Lock - Large Bore; Complete Time: 14:42 rn 08/31 13:06 Order name: Labs collected and sent; Complete Time: 14:42 rn 08/31 13:06 Order name: O2 Per Protocol; Complete Time: 14:42 rn 08/31 13:06 Order name: O2 Sat Monitoring; Complete Time: 14:42 rn 08/31 13:06 Order name: Vital Signs; Complete Time: 14:42 rn Administered Medications: 14:42 Drug: Levalbuterol Inhalation 1.25 mg Inhalation once Route: Inhalation; ph 19:09 Follow up: Response: No adverse reaction ph 17:01 Drug: Piperacillin-Tazobactam IVPB 3.375 grams IVPB once over 60 mins; (mix in NS 100 ph mL) Route: IVPB; Infused Over: 60 mins; Site: right hand; 18:05 Follow up: Response: No adverse reaction; IV Status: Completed infusion ph 17:12 Drug: Levalbuterol Inhalation 1.25 mg Inhalation once Route: Inhalation; ph 19:09 Follow up: Response: No adverse reaction ph 18:55 Drug: vancoMYCIN IVPB 1 grams IVPB once over 2 hrs Route: IVPB; Infused Over: 2 hrs; ph Site: right hand; 19:08 Follow up: Response: No adverse reaction; IV Status: Infusion continued upon transfer ph 20:44 Follow up: IV Status: Completed infusion jj7 19:22 Drug: Tussionex Pennkinetic ER PO Suspension 2.5 ml PO once Route: PO; jj7 Disposition Summary: 09/01/23 16:46 Transfer Ordered Notes: Reason: Higher level of care rn Condition: Stable rn Problem: new rn 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(09/01/23 16:51) rn Accepting Physician: (09/01/23 22:19) jj7 Diagnosis - Pneumonia, unspecified organism rn - Malignant pleural effusion - Loculated rn - Hypoxemia rn Forms: - Medication Reconciliation Form rn - SBAR form rn Signatures: Dispatcher [employer] EDMadan Abbott MD MD rn Hall, Patricia, RN RN ph Slawson, Ashby RN RN as6 Homa iLno RN RN jj7 Corrections: (The following items were deleted from the chart) 13:07 13:07 BLOOD CULTURE*+BA.LAB.BRZ ordered. EDMS EDMS 13:07 13:07 CBC+H.LAB.BRZ ordered. EDMS EDMS 13:07 13:07 COMPREHENSIVE METABOLIC PANEL+C.LAB.BRZ ordered. EDMS EDMS 13:07 13:07 LACTATE+C.LAB.BRZ ordered. EDMS EDMS 13:07 13:07 PROTIME (+INR)+COAG.LAB.BRZ ordered. EDMS EDMS 13:07 13:07 PTT, ACTIVATED+COAG.LAB.BRZ ordered. EDMS EDMS 13:07 13:07 Urinalysis+U.LAB.BRZ ordered. EDMS EDMS 13:07 13:07 PROBNP+C.LAB.BRZ ordered. EDMS EDMS 16:51 16:46 Dr. correa rn 16:51 16:46 [facility] rn rn 22:19 16:51 Dr. correa jj7
--- NOTE | 2023-09-01 16:46 | ER ---
Nurse's Notes [facility] Name: Maite Severino Age: 63 yrs Sex: Female : 1960 Arrival Date: 09/01/2023 Time: 12:24 Bed 19 Private MD: Diagnosis: Pneumonia, unspecified organism;Malignant pleural effusion-Loculated;Hypoxemia Presentation: 08/31 12:55 Chief complaint: Patient's son or daughter states: pt has been more short of breath and as6 been having lower O2 levels than normal. Coronavirus screen: At this time, the client does not indicate any symptoms associated with coronavirus-19. Ebola Screen: No symptoms or risks identified at this time. Initial Sepsis Screen: Does the patient meet any 2 criteria? RR > 20 per min. HR > 90 bpm. Does the patient have a suspected source of infection? No. Patient's initial sepsis screen is negative. Risk Assessment: Do you want to hurt yourself or someone else? Patient reports no desire to harm self or others. Onset of symptoms was September 01, 2023. 12:55 Acuity: MINH 2 as6 12:55 Method Of Arrival: Wheelchair as6 Historical: - Allergies: 12:55 No Known Allergies; as6 - PMHx: 12:55 Asthma; BRAIN TUMOR; Lung Cancer; Schizophrenia; as6 - PSHx: 12:55 Cholecystectomy; tunor removal; as6 - Immunization history:: Adult Immunizations up to date. - Infectious Disease History:: Denies. - Social history:: Smoking status: Patient denies any tobacco usage or history of. - Family history:: not pertinent. - Hospitalizations: : No recent hospitalization is reported. Screenin:48 [facility] ED Fall Risk Assessment (Adult) History of falling in the last 3 months, ph including since admission No falls in past 3 months (0 pts) Confusion or Disorientation No (0 pts) Intoxicated or Sedated No (0 pts) Impaired Gait No (0 pts) Mobility Assist Device Used Yes (1 pt) Altered Elimination No (0 pt) Score/Fall Risk Level 0 - 2 = Low Risk Oriented to surroundings, Maintained a safe environment. Abuse screen: Denies threats or abuse. Denies injuries from another. Nutritional screening: No deficits noted. Tuberculosis screening: No symptoms or risk factors identified. Assessment: 14:15 General: Appears in no apparent distress. comfortable, Behavior is calm, cooperative, ph appropriate for age. Pain: Denies pain. Neuro: Level of Consciousness is awake, alert, obeys commands, Oriented to person, place, time, situation. Cardiovascular: Capillary refill < 3 seconds in bilateral fingers Patient's skin is warm and dry. Respiratory: Airway is patent Respiratory effort is even, unlabored, Respiratory pattern is regular, symmetrical. Respiratory: Airway is patent Respiratory effort is even, labored, Respiratory pattern is tachypnea. Derm: Skin is pink, warm \T\ dry. 15:30 Reassessment: Patient appears in no apparent distress at this time. Patient and/or ph family updated on plan of care and expected duration. Pain level reassessed. Patient is alert, oriented x 3, equal unlabored respirations, skin warm/dry/pink. 17:00 Reassessment: Patient appears in no apparent distress at this time. Patient and/or ph family updated on plan of care and expected duration. Pain level reassessed. Patient is alert, oriented x 3, equal unlabored respirations, skin warm/dry/pink. 18:20 Reassessment: Report given to nurse at [facility] in [address] . 19:08 Reassessment: ASSUMED CARE OF PT. PT LYING IN BED. PT AWARE OF PLAN FOR TRANSFER. PT aurorajTodd COUGHING. WILL INFORM MD. TEAGAN SIDDIQI. FAMILY AT BEDSIDE. NO ADDITIONAL NEEDS AT THIS TIME. 21:15 Reassessment: ETA FOR EMS IS 2130. PT AND FAMILY INFORMED. jj7 22:10 Reassessment: [facility] AT BEDSIDE TO TRANSFER PT. jj7 Vital Signs: 12:54 BP 144 / 88; Pulse 109; Resp 23 S; Temp 98.3(O); Pulse Ox 94% on 4 lpm NC; Weight 68.04 as6 kg (R); Height 5 ft. 0 in. (R); Pain 0/10; 13:45 BP 139 / 77; Pulse 104; Resp 24; Pulse Ox 100% on 4 lpm NC; ph 14:45 BP 144 / 85; Pulse 104; Resp 22; Pulse Ox 98% on 4 lpm NC; ph 16:00 BP 135 / 87; Pulse 103; Resp 24; Pulse Ox 99% on 4 lpm NC; ph 17:00 BP 128 / 78; Pulse 103; Resp 24; Pulse Ox 98% on 4 lpm NC; ph 18:00 BP 136 / 78; Pulse 106; Resp 22; Pulse Ox 100% on 4 lpm NC; ph 19:00 BP 124 / 104; Pulse 106; Resp 23; Pulse Ox 98% on 2 lpm NC; jj7 20:00 BP 147 / 89; Pulse 102; Resp 22; Pulse Ox 94% on 2 lpm NC; jj7 21:00 BP 137 / 87; Pulse 102; Resp 21; Pulse Ox 96% on 4 lpm NC; jj7 22:11 BP 139 / 86; Pulse 97; Resp 16; Temp 98.9; Pulse Ox 97% 3 lpm ; jj7 12:54 Body Mass Index 29.29 (68.04 kg, 152.4 cm) as6 12:54 Pain Scale: Adult as6 ED Course: 12:27 Patient arrived in ED. mg5 12:38 Madan Butts MD is Attending Physician. rn 12:52 Teresa Downey RN is Primary Nurse. ph 12:54 Arm band placed on. as6 12:57 Triage completed. as6 13:22 XRAY Chest (1 view) In Process Unspecified. EDMS 14:25 Initial lab(s) drawn, by me, sent to lab. Inserted saline lock: 22 gauge in left ph antecubital area, using aseptic technique. Inserted saline lock: 24 gauge in right hand, using aseptic technique. Blood collected. 15:50 Patient has correct armband on for positive identification. Bed in low position. Call ph light in reach. Side rails up X2. Door closed. Noise minimized. Lights dimmed. Warm blanket given. Pillow given. 16:20 CT Chest For PE Angio In Process Unspecified. EDMS 16:52 initiated transfer to [facility], pt denied due to no beds at this time,per Linda. bd 16:54 initiated transfer to [facility]. bd 17:34 pt accepted in transfer to [facility] by dr Baca,admin approval given by adwoa Restrepo. pt going to [id number]. 19:07 No provider procedures requiring assistance completed. Patient transferred, IV remains ph in place. 19:20 Provided Education on: USE OF CALL SCOTT. jj7 21:04 [facility] Contacted for an updated ETA, ETA 2130. ty Administered Medications: 14:42 Drug: Levalbuterol Inhalation 1.25 mg Inhalation once Route: Inhalation; ph 19:09 Follow up: Response: No adverse reaction ph 17:01 Drug: Piperacillin-Tazobactam IVPB 3.375 grams IVPB once over 60 mins; (mix in NS 100 ph mL) Route: IVPB; Infused Over: 60 mins; Site: right hand; 18:05 Follow up: Response: No adverse reaction; IV Status: Completed infusion ph 17:12 Drug: Levalbuterol Inhalation 1.25 mg Inhalation once Route: Inhalation; ph 19:09 Follow up: Response: No adverse reaction ph 18:55 Drug: vancoMYCIN IVPB 1 grams IVPB once over 2 hrs Route: IVPB; Infused Over: 2 hrs; ph Site: right hand; 19:08 Follow up: Response: No adverse reaction; IV Status: Infusion continued upon transfer ph 20:44 Follow up: IV Status: Completed infusion jj7 19:22 Drug: Tussionex Pennkinetic ER PO Suspension 2.5 ml PO once Route: PO; jj7 Medication: 15:48 VIS not applicable for this client. ph Outcome: 16:46 ER care complete, transfer ordered by . rn 22:13 Transferred by [facility] to [facility], Transfer form jj7 completed. X-rays sent w/ patient. 22:13 Condition: good 22:19 Patient left the ED. jj7 Signatures: Dispatcher [employer] EDMS Ladan Zhang Roman, MD MD rn Calderon, Audri, RN RN [email or web address] Teresa Downey RN RN Wu Aguillon RN RN as6 Homa Lino RN RN jj7 Trinh Bailey mg5 Sidney Wilburn ty Corrections: (The following items were deleted from the chart) 21:16 21:15 Reassessment: ETA FOR EMS IS 2129 jj7 jj7
[2023-09-01] MEDS ORDERED: NA CHLORIDE 0.9% 100 ML ONE (16:50)
[2023-09-01] MEDS ORDERED: PIPERACIL/TAZO 3.375 GM VIAL IV ONE (16:50)
[2023-09-01 17:47] LABS: Anisocytosis 1+; Blood Morphology Comment NOTED (NOT SEEN); Differential Total Cells Count 100; Lymphocytes 22 % (15-42); Monocytes 13 % (0-10); Platelet Estimate DECR; Poikilocytosis 1+; Segmented Neutrophils 65 % (40-80)
[2023-09-01 17:59] LABS: SARS-CoV-2 Antigen CONTROL BLUE LINE VIS/BG OK; SARS-CoV-2 Antigen Rapid Res Negative (Negative)
[2023-09-01] MEDS ORDERED: NA CHLORIDE 0.9% 250 ML ONE (18:31)
[2023-09-01] MEDS ORDERED: VANCOMYCIN 1 GM/VIAL ONE (18:31)
[2023-09-01] MEDS ORDERED: HYDROCODONE/CHLORPHEN 5 ML/OSYR ONE (19:15)
[2023-09-01 23:13] VITALS: BP 139/86; TEMP 98.9; O2SAT 97
== END 2023-09-01 22:19 | disposition short-term general hospital (02) ==
LOC: ER 12:24
DX: J18.9 Pneumonia, unspecified organism (principal); D38.1 Neoplasm of uncertain behavior of trachea, bronchus and lung; J91.0 Malignant pleural effusion; R09.02 Hypoxemia; Z11.52 Encounter for screening for COVID-19; Z85.841 Personal history of malignant neoplasm of brain
CPT/HCPCS: 96365; 87040 ×2; 85025; 36415; 85610; 83605; 85730; 80053; 83880; 71275; 71045; 96375; 99285; 87811; Q9967; J7614 ×2; J2543; J7050